=== PATIENT | female | born 1955 | race Caucasian/White ===

== ENCOUNTER 2020-03-26 16:08 | Emergency (ER) | payer MEDICARE, OTHER, SELFPAY ==
--- NOTE | ~2020-03-26 | CT_ITS ---
EXAMINATION: CT brain wo con DATE: 03/26/2020 16:23 INDICATION: Altered mental state TECHNIQUE: Computed tomography (CT) of the head was performed without intravenous contrast. The mA wa s adjusted according to patient size. Iterative reconstruction technique was employed. Exam dose: 60 5.33 mGy-cm total exam DLP. COMPARISON: None FINDINGS: No intracranial mass lesion or hemorrhage or cerebrovascular accident. No midline shift or mass effect. Normal ventricular size. No subdural or epidural hematoma. No fracture or bone destruction of the c ranial vault. IMPRESSION: No significant abnormality Reviewed, dictated and finalized at [facility]. Reviewed, dictated and finalized at [facility]. IMPRESSION: No significant abnormality
--- NOTE | 2020-03-26 16:10 | ECG_ITS ---
Measurements Intervals [place] Rate: 82 P: 74 [place]: 176 QRS: 77 QRSD: 98 T: 67 QT: 396 QTc: 463 Interpretive Statements SINUS RHYTHM VENTRICULAR PREMATURE COMPLEX POSSIBLE LEFT ATRIAL ENLARGEMENT BASELINE ARTIFACT- I, III BORDERLINE ECG Electronically Signed On 03-26-2020 18:19:06 CDT by Bradly Jackson D.O.
[2020-03-26 16:16] VITALS: BP 187/89
[2020-03-26 16:19] LABS: Glucose Point of Care 96 (65-105)
--- NOTE | 2020-03-26 16:25 | ED.HA ---
HPI - Headache General Chief Complaint: Altered Mental Status Stated Complaint: ams Time Seen by Provider: 03/26/20 16:10 Source: patient Mode of arrival: wheelchair Limitations: altered mental status History of Present Illness HPI Narrative: Patient is a 64-year-old female who presents to the emergency department with a friend for report of headache and altered mental status. Patient was poorly responsive and lethargic on arrival to the ED and required multiple staff to move her from wheelchair to stretcher in the room. Patient is complaining of occipital headache and feels as though she was hit in the back of her head with a bat. Patient recalls noticing white flash of light in her visual field just before headache came on. Son reported to the nurse via phone that patient does have history of migraine headaches. Patient reportedly is also on pain medications for her back, though patient denies being on any pain medications or taking anything to me. Patient denies any trauma. Patient reports only anticoagulant is aspirin. MD elicited complaint: headache Pertinent past history: migraines Onset description: suddenly Location: occipital Context: occurred at rest Related Data Home Medications Medication Instructions Recorded Confirmed aspirin 325 mg tablet 325 mg PO DAILY 01/12/20 02/16/20 calcium carbonate 600 mg(1,500 1 tablet PO BID 01/12/20 02/16/20 mg)-vitamin D3 800 unit chewable tablet minocycline 50 mg capsule 50 mg PO DAILY 01/12/20 02/16/20 maumdizb-mme-tdazd acid 0.4 1 tablet PO DAILY 01/12/20 02/16/20 mg-lycopene 300 mcg-lutein 250 mcg tablet trazodone 150 mg tablet 150 mg PO BID 01/12/20 02/16/20 venlafaxine 150 mg 150 mg PO DAILY 01/12/20 02/16/20 capsule,extended release 24 hr venlafaxine 75 mg capsule,extended 75 mg PO DAILY 01/12/20 02/16/20 release 24 hr gabapentin 300 mg capsule 300 mg PO TID cap 03/22/20 metoprolol tartrate 25 mg tablet 25 mg PO BID tablet 03/22/20 omeprazole 40 mg capsule,delayed 40 mg PO BID cap 03/22/20 release Allergies Allergy/AdvReac Type Severity Reaction Status Date / Time codeine Allergy Intermediate Hives Verified 03/22/20 10:18 Review of Systems Review of Systems: All systems reviewed & are unremarkable except as noted in HPI and below Neurologic: Reports headache(s) PMFSH Past Medical History Medical History Cardiac arrhythmia Depression Eye problems Headache Heart disease Heartburn Herniated disc Migraine Osteoporosis Perspiration excessive Sleep disorder Surgical History Surgical History History of back surgery Lower Back 07/2018 Back L4 L5- 06/2019 History of 04/2001 History of foot surgery Torn Ligament Right foot 2016 History of heart surgery Heart Ablations 01/2009 History of hemorrhoidectomy 10/2012 History of knee replacement procedure of right knee 09/2014 History of nasal surgery History of neck surgery 01/2000 Neck through front-10/2018 Neck buckled, went through back of neck-01/2019 Hx of removal of ovary Social History Social History Smoking status: Current every day smoker Second hand tobacco smoke exposure: No Additional smoking assessment comments: Smoking since 1973 Alcohol intake: current Gender identity (if verbalized by the patient): Female Exam Const: General: cooperative, confusion, ill appearing and lethargic Nutritional Appearance: well nourished Orientation/consciousness: confusion and lethargic Limitations: altered mental status HENMT: Mouth: Yes lip normal and Yes moist mucous membranes Resp: Effort & Inspection: normal respiratory effort Auscultation: clear to auscultation bilaterally Cardio: Rate: regular rate Rhythm: regular rhythm GI: GI Palp: Yes Soft t
[2020-03-26 16:26] VITALS: BP 167/88; PULSE 79; RESP 8; TEMP 36.8; O2SAT 100
[2020-03-26 16:35] LABS: Glucose Point of Care 91 (65-105)
[2020-03-26 16:48] LABS: Basophils Percent Auto 0.4 % (0.2-1.2); Eosinophils Absolute Auto 0.1 K/mm3 (0-0.3); Eosinophils Percent Auto 1.9 % (0-4.4); Hematocrit 39.1 % (37.0-47.0); Hemoglobin 13.1 g/dL (12.0-15.0); Immature Granulocyte Absolute 0.02 K/mm3 (0.00-0.031); Immature Granulocyte Percent A 0.3 % (0-0.5); Lymphocytes Absolute Auto 2.32 K/mm3 (0.9-3.2); Lymphocytes Percent Auto 33.3 % (18.3-44.2); Mean Corpuscular HGB Conc 33.5 g/dl (32-36); Mean Corpuscular Hemoglobin 30.2 pg (26-34); Mean Corpuscular Volume 90.1 fl (80-100); Monocytes Absolute Auto 0.8 K/mm3 (0.1-0.6); Monocytes Percent Auto 10.8 % (2.6-8.5); Neutrophils Absolute Auto 3.7 K/mm3 (1.3-6.7); Neutrophils Percent Auto 53.3 % (45.5-73.1); Platelet Count Result 316 k/mm3 (150-375); Red Blood Count 4.34 M/mm3 (4.2-5.4); Red Cell Distribution Width 13.5 % (11.5-14.5)
[2020-03-26 16:50] LABS: Add Urine Microscopic? NO; Appearance Urine Clear (Clear); Bilirubin Urine Negative (Negative); Blood Urine Negative (Negative); Color Urine Straw (Yellow); Glucose Urine UA Negative (Negative); Ketones Urine Negative (Negative); Leukocyte Esterase Ur Negative LEU/UL (Negative); Nitrate Urine Negative (Negative); Protein Urine Negative (Negative); Specific Grav Ur 1.009 (1.001-1.035); Urobilinogen Urine Negative mg/dL (<2.0)
[2020-03-26 17:00] LABS: Alanine Aminotransferase 20 U/L (4-35); Albumin Level 4.2 g/dL (3.5-5.1); Alkaline Phosphatase 92 U/L (38-126); Aspartate Amino Transferase 32 U/L (14-36); Bilirubin,Total 0.2 mg/dL (0.2-1.3); Blood Urea Nitrogen 21 mg/dL (7-17); Calcium 9.4 mg/dL (8.4-10.2); Carbon Dioxide 26 mmol/L (22-30); Chloride 104 mmol/L (98-107); Estimated Glomerular Filt Rate > 60; Glucose 97 mg/dL (65-105); INR 0.9; Prothrombin Time 12.1 Seconds (11.1-14.7); Sodium 135 mmol/L (137-145)
[2020-03-26 17:01] LABS: Partial Thromboplastin Time 23.7 SECONDS (22.3-36.8)
[2020-03-26] MEDS: KETOROLAC 30 MG/ML VIAL (*BKC) IV PUSH (17:22)
[2020-03-26 17:23] LABS: Acetaminophen < 10 ug/mL (10-30); Ethanol < 10 mg/dL (<10); Salicylate 4.7 mg/dL (2-20)
[2020-03-26] MEDS: LACTATED RINGERS 1,000 ML 999 ML IV CONT (17:23)
[2020-03-26 17:30] VITALS: BP 169/78; PULSE 75; RESP 16; TEMP 36.6; O2SAT 100
[2020-03-26 17:56] LABS: Amphetamine Screen Urine Negative (Negative); Barbiturate Screen Urine Negative (Negative); Benzodiazepines Screen Urine Negative (Negative); Cannabinoid Screen Urine Negative (Negative); Cocaine Screen Urine Negative (Negative); Methadone Screen Urine Negative (Negative); Opiate Screen Urine Negative (Negative); Phencyclidine Screen Urine Negative (Negative)
[2020-03-26 18:53] VITALS: BP 177/143; PULSE 77; RESP 16; TEMP 36.7; O2SAT 100
== END 2020-03-26 19:51 | disposition home or self-care (01) ==
PROVIDERS: Emergency Provider Emergency Medicine; PCP Family Medicine
DX: R41.82 Altered mental status, unspecified (principal); R51 Headache; Z79.82 Long term (current) use of aspirin; F32.9 Major depressive disorder, single episode, unspecified; M81.0 Age-related osteoporosis without current pathological fracture; Z96.651 Presence of right artificial knee joint; F17.200 Nicotine dependence, unspecified, uncomplicated; I49.3 Ventricular premature depolarization; R94.31 Abnormal electrocardiogram [ECG] [EKG]; I51.9 Heart disease, unspecified; G47.9 Sleep disorder, unspecified; R61 Generalized hyperhidrosis; Z79.899 Other long term (current) drug therapy
CPT/HCPCS: 36415; 51701; 70450; 80053; 80307; 81003; 82948; 85025; 85610; 85730; 93005; 96361; 96374; 99284; J1885; J7120

== ENCOUNTER 2020-04-08 13:37 | Outpatient (CLI) | payer MEDICARE, OTHER, SELFPAY ==
--- NOTE | ~2020-04-08 | MR_ITS ---
EXAMINATION: MR brain/brain stem wo con DATE: 04/08/2020 14:22 CDT INDICATION: Headache. TECHNIQUE: Magnetic resonance imaging (MRI) of the brain and brainstem was performed without intraven ous contrast. Sequences included sagittal and axial T1-weighted SE, axial diffusion-weighted FS SE, a xial T2*-weighted GRE, axial T2-weighted FLAIR Propeller, and axial T2-weighted Propeller. Apparent d iffusion coefficient (ADC) maps were created. COMPARISON: CT dated 03/26/2020 FINDINGS: The brain volume and ventricular system are within normal limits. The brain parenchymal si gnal intensity pattern and infante/white matter is normal and there is no evidence of hemorrhage, space occupying masses or infarctions. The flow signal voids of the major arterial structures about the [place] and within the [place] r dural venous sinuses appear grossly unremarkable and patent. The seventh and eighth cranial nerve complexes are normal. The mid sagittal image demonstrates a normal craniovertebral junction and justin us callosum. The paranasal sinuses are grossly unremarkable. IMPRESSION: 1: No acute intracranial abnormality. Reviewed, dictated and finalized at location [facility].
== END 2020-04-08 13:38 | disposition home or self-care (01) ==
PROVIDERS: PCP Family Medicine; Visit Provider Family Medicine
DX: R51 Headache (principal)
CPT/HCPCS: 70551

== ENCOUNTER 2020-04-27 07:33 | Outpatient (CLI) | payer MEDICARE, OTHER, SELFPAY ==
[2020-04-27 09:57] LABS: Urine Cotinine POSITIVE
[2020-04-27 10:04] LABS: Hemoglobin A1C 5.4 % (<5.7)
== END 2020-04-27 07:34 | disposition home or self-care (01) ==
LOC: ANHSURGERY 07:39
PROVIDERS: PCP Family Medicine; Visit Provider Orthopaedic Surgery
DX: Z96.651 Presence of right artificial knee joint (principal)
CPT/HCPCS: 36415; 80307; 83036; 86850; 86900; 86901; 87081

== ENCOUNTER 2020-06-04 07:40 | Outpatient (CLI) | payer MEDICARE, OTHER, SELFPAY ==
[2020-06-04 08:17] LABS: Basophils Percent Auto 0.5 % (0.2-1.2); Eosinophils Absolute Auto 0.2 K/mm3 (0-0.3); Hematocrit 40.5 % (37.0-47.0); Hemoglobin 13.1 g/dL (12.0-15.0); Immature Granulocyte Absolute 0.01 K/mm3 (0.00-0.031); Immature Granulocyte Percent A 0.2 % (0-0.5); Lymphocytes Absolute Auto 1.72 K/mm3 (0.9-3.2); Lymphocytes Percent Auto 30.6 % (18.3-44.2); Mean Corpuscular HGB Conc 32.3 g/dl (32-36); Mean Corpuscular Hemoglobin 29.9 pg (26-34); Mean Corpuscular Volume 92.5 fl (80-100); Mean Platelet Volume 9.3 fl (7.4-10.4); Monocytes Absolute Auto 0.5 K/mm3 (0.1-0.6); Monocytes Percent Auto 9.6 % (2.6-8.5); Neutrophils Absolute Auto 3.2 K/mm3 (1.3-6.7); Neutrophils Percent Auto 56.1 % (45.5-73.1); Platelet Count Result 323 k/mm3 (150-375); Red Blood Count 4.38 M/mm3 (4.2-5.4); Red Cell Distribution Width 13.9 % (11.5-14.5); White Blood Count 5.6 K/mm3 (4.5-10.0)
[2020-06-04 08:24] LABS: Urine Cotinine NEGATIVE
[2020-06-04 08:33] LABS: Estimated Glomerular Filt Rate > 60; Glucose 93 mg/dL (65-105)
[2020-06-04 14:28] LABS: Hemoglobin A1C 5.3 % (<5.7)
== END 2020-06-04 07:41 | disposition home or self-care (01) ==
LOC: ANHSURGERY 07:43
PROVIDERS: PCP Family Medicine; Visit Provider Orthopaedic Surgery
DX: Z96.651 Presence of right artificial knee joint (principal)
CPT/HCPCS: 36415; 80307; 82040; 82565; 82947; 83036; 85025; 86850; 86900; 86901; 87081

== ENCOUNTER 2020-06-08 | Outpatient (CLI) | payer MEDICARE, OTHER, SELFPAY ==
[2020-06-08 20:43] LABS: SARS-CoV-2 RNA PCR Negative
== END 2020-06-08 00:01 | disposition home or self-care (01) ==
LOC: ANHCOVIDDT
PROVIDERS: PCP Family Medicine; Visit Provider Orthopaedic Surgery
DX: Z01.818 Encounter for other preprocedural examination (principal); Z11.59 Encounter for screening for other viral diseases
CPT/HCPCS: 87635; C9803; U0003

== ENCOUNTER 2020-06-11 09:09 | Inpatient (IN) | payer MEDICARE, OTHER, SELFPAY ==
[2020-04-27 08:17] VITALS: BP 164/70; PULSE 88; RESP 20; TEMP 36.7; O2SAT 99; BMI 29.8
[2020-05-30 14:01] VITALS: BMI 29.8
[2020-06-11] VITALS (13 sets, daily range): BP systolic 107–152; BP diastolic 44–80; PULSE 67–78; RESP 10–18; TEMP 36.4–36.8; O2SAT 95–100; BMI 29.5; BMI 31.0
--- NOTE | ~2020-06-11 | XR_ITS ---
XR knee RT 2V DATE: 06/11/2020 09:35 INDICATION: Right total knee revision TECHNIQUE: Portable postoperative AP and lateral views COMPARISON: 05/31/2020 right knee FINDINGS: There is subcutaneous emphysema and soft tissue swelling of the anterior lower leg and knee . Status post right total knee arthroplasty with patellar resurfacing. No fracture or dislocation, periosteal reaction or bone destruction is evident. IMPRESSION: Status post right total knee arthroplasty Reviewed, dictated and finalized at location [facility].
[2020-06-11] MEDS: LACTATED RINGERS 1,000 ML 30 ML IV CONT ×2 (06:46→09:22)
[2020-06-11] MEDS: ACETAMINOPHEN 500 MG TABLET 1000 MG PO (06:47)
[2020-06-11] MEDS: KETOROLAC 15 MG/ML VIAL (*BKC) IV PUSH ×4 (06:47→23:35)
[2020-06-11] MEDS: TRANEXAMIC ACID 1,000MG/ISO100 1,000 MG/100 ML BAG 200 MG IVPB (06:53)
--- NOTE | 2020-06-11 06:55 | WPDANESEPPF ---
Anes - Initial Pre Proc Eval Procedure: Operation Date: 06/11/20 07:30 Proposed Procedures p Right Total Knee Revision With Intraoperative Frozen Sections - Mesfin Gaytan MD Date/Time: 06/11/20 06:55 Surgeon: Mesfin Gaytan MD Pre Op Diagnosis: Acquired Instability of Right Knee Patient Data Age: 64 Gender: F Height: 1.56 m Weight: 72.2 kg Last Vital Signs Temp 36.7 C 04/27/20 08:17 Pulse 88 04/27/20 08:17 Resp 20 04/27/20 08:17 BP 164/70 H 04/27/20 08:17 Pulse Ox 99 04/27/20 08:17 Allergies Allergy/AdvReac Type Severity Reaction Status Date / Time codeine Allergy Intermediate Hives Verified 05/31/20 07:23 Home Medications Medication Instructions Recorded Confirmed Type aspirin 325 mg tablet 325 mg PO DAILY 01/12/20 05/31/20 History calcium carbonate 600 mg(1,500 1 tablet PO BID 01/12/20 05/31/20 History mg)-vitamin D3 800 unit chewable tablet minocycline 50 mg capsule 50 mg PO DAILY 01/12/20 05/31/20 History fcdlmfjn-whk-xhhur acid 0.4 1 tablet PO DAILY 01/12/20 05/31/20 History mg-lycopene 300 mcg-lutein 250 mcg tablet trazodone 150 mg tablet 150 mg PO HS 01/12/20 05/31/20 History venlafaxine 150 mg 150 mg PO BID 01/12/20 05/31/20 History capsule,extended release 24 hr venlafaxine 75 mg capsule,extended 75 mg PO BID 01/12/20 05/31/20 History release 24 hr gabapentin 300 mg capsule 300 mg PO TID cap 03/22/20 05/31/20 History metoprolol tartrate 25 mg tablet 25 mg PO BID tablet 03/22/20 05/31/20 History omeprazole 40 mg capsule,delayed 40 mg PO BID cap 03/22/20 05/31/20 History release rivaroxaban 10 mg tablet 10 mg PO DAILY #13 tablet MDD 1 04/20/20 05/31/20 Rx tab = 10mg topiramate 25 mg PO HS 04/27/20 05/31/20 History estradiol 10 mcg vaginal insert 10 mcg VAGINAL 2XW 05/24/20 05/31/20 History Patient hx anesthesia problems: none Family hx anesthesia problems: none [facility] Past Medical History Medical History (Updated 06/11/20 @ 06:57 by Tramaine Paul DO) BMI 28.0-28.9,adult Cardiac arrhythmia Hx SVT - s/p ablation x3 CHF (congestive heart failure) ONLY DURING in 2000, EF% 69%, no issues since Depression Eye problems Headache Heartburn Herniated disc Migraine Osteoporosis Perspiration excessive Sleep disorder Surgical History Surgical History History of back surgery Lower Back 07/2018 Back L4 L5- 06/2019 History of 04/2001 History of foot surgery Torn Ligament Right foot 2016 History of heart surgery Heart Ablations 01/2009 History of hemorrhoidectomy 10/2012 History of knee replacement procedure of right knee 09/2014 History of nasal surgery History of neck surgery 01/2000 Neck through front-10/2018 Neck buckled, went through back of neck-01/2019 Hx of removal of ovary Social History Social History Smoking status: Former smoker Additional smoking assessment comments: Smoking since 1973 STATES QUIT APRIL 2020 Alcohol intake: current Gender identity (if verbalized by the patient): Female Anes - Eval Final PreProcedure Day of Procedure 06/11/20 06:55 Patient weight: overweight Heart: regular rate and rhythm Lungs: clear to auscultation and normal air movement Airway: Mallampati scale class III Neurological: alert and oriented Last oral intake: >/= 8 hours ASA classification: III Emergent: no Anesthetic plan: proceed Anesthesia type and monitoring: general LMA and standard monitoring Informed Consent: The patient's anesthetic plan and its attendant risks and benefits were discussed with the patient/family/POA. Questions were solicited and answers provided to the satisfaction of the patient/family/POA.
--- NOTE | 2020-06-11 06:58 | WPDANESPNB ---
Anes - Peripheral Nerve Block Date/Time: 06/11/20 06:58 I have discussed with the patient/family/POA the placement of a peripheral nerve block for post-operative pain management, including associated risks, benefits, complications, and side effects. Alternative methods of post-operative analgesia were detailed. Questions were solicited and answers provided to the satisfaction of the patient/family/POA. Time-Out: A pre-procedural Time-Out was completed immediately before starting the procedure and confirmed: Patient Identification, Site, Procedure, Patient Position and the Availability of Requisite Equipment. Clinical Indications: Acute post-operative pain management requested by the operative surgeon. Nerve Block Insertion Note Anes-nerve block: adductor canal right Patient position: supine Skin prep: chlorhexidine Needle: 22 gauge, stimulating, insulated echogenic needle. Needle length: 80 mm Technique: ultrasound Injectate: bupivacaine 0.5% with epi 5 mcg/ml (30cc) Observations: tolerated well Complications: none Procedure start time:: 722 Procedure end time:: 725
--- NOTE | 2020-06-11 07:14 | WPDHPUPDATE1 ---
History and Physical Update Update Date/Time: 06/11/20 07:14 History and Physical has been reviewed, including an updated exam of the patient. There are NO changes in the patient's condition. Risks, benefits, and alternatives have been discussed and questions answered. Patient agrees to proceed with procedure.
--- NOTE | 2020-06-11 07:31 | SUR.PREOP ---
3418; CLARIFIED WITH DR MARTÍNEZ, GIVE VANCOMYCIN
[2020-06-11] MEDS: ceFAZolin 2 GM/D5W 50 ML 2 GM/50 ML BAG IVPB ×3 (07:36→23:36)
[2020-06-11] MEDS: TRANEXAMIC ACID 1,000 MG/10 ML AMPUL 1000 MG TOPICAL (08:06)
--- NOTE | 2020-06-11 09:18 | P.OP_ITS ---
Procedure Note - Detailed Date of procedure: 06/11/20 Pre-op diagnosis: Acquired Instability of Right Knee Post-op diagnosis: same (Status post right total knee replacement in 2013) Procedure performed: revision right total knee replacement - polyethylene exchange Description of procedure: The patient was identified and proper site identified. In the preop holding area the anesthesia team performed a right sub sartorial block after which the patient was taken to the operating room and transferred to the OR table positioning supine taking care to pad the torso and extremities. After general anesthetic induction and intubation a nonsterile tourniquet was placed high on the right thigh. The right lower extremity was prepped and draped in the usual sterile fashion. The extremity was exsanguinated and with the knee flexed tourniquet was inflated to 300 mmHg remaining up for approximately 31 minutes. An anterior midline incision was made and a modified medial parapatellar approach was used. Scar tissue in the anterior portion of the knee was excised enough to be able to access the locking bar as well as the anterior margin of the tibial component. The locking bar was removed and the 12 mm tibial insert was taken out. Sample of tissue was sent for frozen section which came back no acute inflammation. Gram stain and cultures were also sent . The patellar, tibial and femoral implants were all checked for stability and noted to be solidly fixed. The knee was trialed with a 14 mm insert for the 67 tray which gave excellent stability. After a thorough lavage of the joint a Betadine and saline wash was placed into the wound and allowed to sit for approximately 3 minutes and then evacuated. The real 14 mm size 67 insert was placed and secured with the locking bar Periarticular tissues were infiltrated with 60 cc of the arthroplasty solution. 1 g of tranexamic acid was left in the wound. The extensor mechanism was repaired with #2 Vicryl suture and 0 looped PDS suture. Subcu was reappro ximated with two Vicryl and two 0 strata fix with tissue adhesive for the skin. A sterile dressing was applied. she tolerated the procedure well, was awakened and extubated, transferred to the bed and was taken to recovery area in stable condition. There were no known intraoperative complications. Perioperative antibiotics were administered. Anesthesia: GLMA Surgeon: Mesfin Gaytan MD Senior Strategy Analyst: Gema Purvis Estimated blood loss (mL): 50 Tourniquet time (min): 31 Drains: No Packing: No Pathology: yes Complications: No immediate complications Condition: stable Disposition: PACU
--- NOTE | 2020-06-11 10:09 | SUR.PHASEI ---
0930 xrays right knee done.
--- NOTE | 2020-06-11 10:46 | ADMGEN ---
This patient, Frannie Palma, was admitted to 2 Medical Room 249-01. Patient/family oriented to hospital policies and general routines including ID bracelet, bed and alarms, visiting hours, pain management, procedures, bathroom and other care routines, personal items, smoking policy, room service/diet, and visiting hours. Valuables list has been completed. Information on how to activate the Rapid Response Team has been discussed. Patient/Family are encouraged to report perceived risks to care and to ask questions if they do not understand what they are told or what they should do.
[2020-06-11] MEDS: SODIUM CHLORIDE 0.9% IV 1,000 ML 125 ML IV CONT (11:05)
[2020-06-11] MEDS: oxyCODONE/ACETAMINOPHEN 5-325 MG TABLET 1 TABLET PO ×3 (12:59→20:21)
[2020-06-11] MEDS: GABAPENTIN 300 MG CAPSULE PO ×2 (12:59→16:14)
[2020-06-11] MEDS: RIVAROXABAN 10 MG TABLET PO (17:14)
--- NOTE | 2020-06-11 17:46 | PM.IMCN ---
Assessment and Plan Assessment and plan (1) History of knee replacement procedure of right knee: Code(s): Z96.651 - Presence of right artificial knee joint Status: Acute Assessment and Plan: DVT prophylaxis per ortho. The patient has already been on Xarelto for her AFib. Pain management per Ortho. The patient has a Band-Aid to her right knee which is dry and intact. She has a ice pack to the right knee she has bilateral TEDs and SCDs. (2) Atrial fibrillation: Code(s): I48.91 - Unspecified atrial fibrillation Status: Chronic Assessment and Plan: patient had 3 ablations and is now on Xarelto. She is on metoprolol. (3) Hypertension: Code(s): I10 - Essential (primary) hypertension Status: Chronic Assessment and Plan: She is on metoprolol (4) Neuropathy: Code(s): G62.9 - Polyneuropathy, unspecified Status: Chronic Assessment and Plan: continue with gabapentin (5) Rosacea: Code(s): L71.9 - Rosacea, unspecified Status: Chronic Assessment and Plan: continue minocycline. (6) Anxiety: Code(s): F41.9 - Anxiety disorder, unspecified Status: Chronic Assessment and Plan: Continue with Effexor and Desyrel. HPI Data of Consult Consult date: 06/11/20 Requesting Physician: Mesfin Gaytan MD Primary Care Provider: Zafar Reddy MD Consult Narrative Narrative: Frannie Palma is a 64 year old female Who has a past history of having a total right total knee arthroplasty back in 2013. The patient stated that he keeps slipping and she was having problems with the right knee. The patient has been having severe discomfort specially with activity. She has had instability of her right knee. She has been worked up for infection in all is remarkable. The patient had a revision of her right knee. She tells me that she stop smoking about 4 months ago. She has atrial fibrillation history with at least 3 ablations and she is on anticoagulation. The patient had a nerve block with her knee surgery today. She is not having any discomfort. The LAD she is complaining of his a dry mouth. I think ortho for this opportunity to consult on this lady. I spent approximately 45 minutes with this patient. Date of service is 06/11/2020 Review of Systems Review of Systems: All systems reviewed & are unremarkable except as noted in HPI and below Constitutional: Constitutional: Reports as per HPI and Reports no additional constitutional complaints Eyes: Eyes: Reports as per HPI and Reports no additional eye complaints ENT: Reports system reviewed and no additional complaints, except as documented and Reports Normal hearing present Cardiovascular: Cardiovascular: Reports no additional cardiovascular complaints Respiratory: Respiratory: Reports no additional respiratory complaints and Reports no additional respiratory complaints Gastrointestinal: Gastrointestinal: Reports as per HPI and Reports no additional gastrointestinal complaints Musculoskeletal: Musculoskeletal: Reports no additional musculoskeletal complaints Integumentary/Breasts: Skin/Breast: Reports system reviewed and no additional complaints, except as docu and Reports as per HPI Neurologic: Reports system reviewed and no additional complaints, except as documented, Reports as per HPI and Reports Normal hearing present Psychiatric: Psychiatric: Reports no additional psychiatric complaints and Reports as per HPI Endocrine: Endocrine: Reports no additional endocrine complaints Hematologic/Lymphatic: Hematologic/Lymphatic: Reports no additional hematologic/lymphatic complaints Allergic/Immunologic: Allergic/Immunologic: Reports no additional allergic/immunologic complaints [facility] Past Medical History Medical History (Updated 06/11/20 @ 18:03 by Radha Perez NP) Anxiety Atrial fibrillation status post 3 ablation some 3 of 0 9, 5 oval 9, 7 9. Paro
[2020-06-11] MEDS: traZODone HCL 50 MG TABLET 150 MG PO (20:21)
[2020-06-11] MEDS: METOPROLOL TARTRATE 25 MG TABLET PO (20:21)
[2020-06-11] MEDS: TOPIRAMATE 25 MG TABLET PO (20:22)
[2020-06-12 00:21] VITALS: BP 131/52; PULSE 73; RESP 20; TEMP 36.6; O2SAT 100
[2020-06-12] MEDS: oxyCODONE/ACETAMINOPHEN 5-325 MG TABLET 1 TABLET PO ×3 (00:33→09:07)
[2020-06-12 04:00] VITALS: BP 151/55; PULSE 65; RESP 18; TEMP 36.4; O2SAT 100
[2020-06-12 06:04] LABS: Basophils Percent Auto 0.2 % (0.2-1.2); Eosinophils Absolute Auto 0.1 K/mm3 (0-0.3); Eosinophils Percent Auto 1.2 % (0-4.4); Hematocrit 35.2 % (37.0-47.0); Hemoglobin 11.4 g/dL (12.0-15.0); Immature Granulocyte Absolute 0.02 K/mm3 (0.00-0.031); Immature Granulocyte Percent A 0.2 % (0-0.5); Lymphocytes Absolute Auto 2.59 K/mm3 (0.9-3.2); Lymphocytes Percent Auto 31.1 % (18.3-44.2); Mean Corpuscular HGB Conc 32.4 g/dl (32-36); Mean Corpuscular Hemoglobin 30.3 pg (26-34); Mean Corpuscular Volume 93.6 fl (80-100); Monocytes Absolute Auto 0.7 K/mm3 (0.1-0.6); Monocytes Percent Auto 7.8 % (2.6-8.5); Neutrophils Absolute Auto 4.9 K/mm3 (1.3-6.7); Neutrophils Percent Auto 59.5 % (45.5-73.1); Platelet Count Result 267 k/mm3 (150-375); Red Blood Count 3.76 M/mm3 (4.2-5.4); Red Cell Distribution Width 14.4 % (11.5-14.5); White Blood Count 8.3 K/mm3 (4.5-10.0)
[2020-06-12 06:19] LABS: Alanine Aminotransferase 19 U/L (4-35); Albumin Level 3.5 g/dL (3.5-5.1); Alkaline Phosphatase 62 U/L (38-126); Anion Gap 7.7 mmol/L (7-16); Aspartate Amino Transferase 31 U/L (14-36); Bilirubin,Total < 0.1 mg/dL (0.2-1.3); Blood Urea Nitrogen 23 mg/dL (7-17); Calcium 9.1 mg/dL (8.4-10.2); Carbon Dioxide 28 mmol/L (22-30); Chloride 103 mmol/L (98-107); Estimated CRCL calculation 44 ml/min; Estimated Glomerular Filt Rate 50; Glucose 86 mg/dL (65-105); Magnesium 1.9 mg/dL (1.6-2.3); Potassium 3.7 mmol/L (3.4-5.0); Sodium 135 mmol/L (137-145)
--- NOTE | 2020-06-12 07:38 | WPDANESPN ---
Anes - Prog Note Post-Op Date/Time: 06/12/20 07:38 Cardiovascular status: normal Respiratory status: normal Airway patency: baseline Mental status: baseline Post-Op hydration status: normal Vital Signs: Last Vital Signs Temp 36.4 C L 06/12/20 04:00 Pulse 65 06/12/20 04:00 Resp 18 06/12/20 04:00 BP 151/55 H 06/12/20 04:00 Pulse Ox 100 06/12/20 04:00 I/O: Intake & Output 06/11/20 06/11/20 06/12/20 15:59 23:59 07:59 Intake Total 299 932 4872 Output Total 750 Balance 922 -450 1450 Laboratory Tests 06/12/20 05:23 06/12/20 05:23 06/12/20 06/12/20 06/12/20 05:23 05:23 05:23 WBC 8.3 RBC 3.76 L Hgb 11.4 L Hct 35.2 L MCV 93.6 MCH 30.3 MCHC 32.4 RDW 14.4 Plt Count 267 MPV 10.0 Immature Gran % (Auto) 0.2 Neut % (Auto) 59.5 Lymph % (Auto) 31.1 Marshall % (Auto) 7.8 Eos % (Auto) 1.2 Baso % (Auto) 0.2 Lymph # (Auto) 2.59 Marshall # (Auto) 0.7 H Eos # (Auto) 0.1 Baso # (Auto) 0.0 Abs Immat Gran (auto) 0.02 Absolute Neuts (auto) 4.9 Absolute Nucleated RBC 0.0 Nucleated RBC % 0.0 Sodium 135 L Potassium 3.7 Chloride 103 Carbon Dioxide 28 Anion Gap 7.7 BUN 23 H Creatinine 1.10 H Estim Creat Clear Calc 44 Estimated GFR 50 L Glucose 86 Calcium 9.1 Magnesium 1.9 Total Bilirubin < 0.1 L AST 31 ALT 19 Alkaline Phosphatase 62 Total Protein 6.0 L Albumin 3.5 TSH (Reflex) Pending Microbiology 06/11/20 08:18 Knee Right Anaerobic Culture - Preliminary Post-procedural complaints: none Patient Feedback: Patient satisfied with anesthetic care.
--- NOTE | 2020-06-12 07:43 | PM.DS ---
DS: Admitting Diagnosis Admitting Diagnosis Admitting Diagnosis: Presence of right artificial knee joint DS: Discharge Diagnosis Discharge Diagnosis (1) History of knee replacement procedure of right knee: Code(s): Z96.651 - Presence of right artificial knee joint Status: Acute DS: Summary Time Spent with Patient Time attestation: Total time spent providing and/or coordinating discharge services: Exam Const: General: cooperative, no acute distress and alert Nutritional Appearance: other Orientation/consciousness: patient oriented x3 Limitations: no limitations HENMT: Head: normal to inspection Ears: hearing grossly normal bilaterally Face and sinus: face symmetric Mouth: Yes moist mucous membranes Teeth and gingiva: fair dentition Eyes: Alignment and Position: alignment normal and position normal Sclera: sclerae normal Neck: Neck: normal visual inspection and nontender Chest: Chest palpation & inspection: normal inspection of the chest Resp: Effort & Inspection: normal respiratory effort and able to speak in complete sentences GI: Inspection: other Skin: General skin exam: normal color Rashes: no rashes Neuro: General: patient oriented x3 Cognition (Neuro): normal cognition Speech: normal speech Gait exam (Neuro): Other gait observations present Motor exam (neuro): 5/5 motor strength present throughout Sensory Exam: normal sensation Extrem: General: normal to inspection and other Other: Exam of the right knee shows dry incision. No erythema. Range of motion 0-115 degrees of flexion. Neurovascular status right lower extremity unremarkable. Calves negative. Psych: Appearance: grossly normal Mental Status: mental status grossly normal DS: Data Data Completed and Pending Pending studies at discharge: Pending at discharge 06/11/20 08:16 Surgical [PTH] Routine Labs on day of discharge: Labs from last 24 hours 06/12/20 06/12/20 06/12/20 05:23 05:23 05:23 WBC 8.3 RBC 3.76 L Hgb 11.4 L Hct 35.2 L MCV 93.6 MCH 30.3 MCHC 32.4 RDW 14.4 Plt Count 267 MPV 10.0 Immature Gran % (Auto) 0.2 Neut % (Auto) 59.5 Lymph % (Auto) 31.1 [place] % (Auto) 7.8 Eos % (Auto) 1.2 Baso % (Auto) 0.2 Lymph # (Auto) 2.59 [place] # (Auto) 0.7 H Eos # (Auto) 0.1 Baso # (Auto) 0.0 Abs Immat Gran (auto) 0.02 Absolute Neuts (auto) 4.9 Absolute Nucleated RBC 0.0 Nucleated RBC % 0.0 Sodium 135 L Potassium 3.7 Chloride 103 Carbon Dioxide 28 Anion Gap 7.7 BUN 23 H Creatinine 1.10 H Estim Creat Clear Calc 44 Estimated GFR 50 L Glucose 86 Calcium 9.1 Magnesium 1.9 Total Bilirubin < 0.1 L AST 31 ALT 19 Alkaline Phosphatase 62 Total Protein 6.0 L Albumin 3.5 TSH (Reflex) Pending Preliminary micro results at discharge 06/11/20 08:18 Anaerobic Culture - Preliminary Knee Right Discharge Plan Discharge Consulting providers: Michael Murdock Discharging Clinician: Mesfin Gaytan Anticipated Discharge Date/Time: 06/12/20 12:00 Patient Disposition: Home, Self-Care Activity: no driving and other - see discharge instructions Diet: regular Wound Care Instructions: follow printed instructions Discharge Instructions: 3 times daily for 20 minutes each time, reclining in bed with ice packs over the incision and a pillow underneath the affected calf. Your wound is glued so it is okay to get into the shower and get the wound wet. Be sure to read through all the information that came from a my office and the hospital. Most of the answer was you will need can be found that material. Call the office with any questions that you cannot find answers to, or concerns you may have. After the Xarelto is completed, start taking one coated 325 mg aspirin daily and do this for four more weeks. Please call [facility] at as soon as pos
[2020-06-12] MEDS: ceFAZolin 2 GM/D5W 50 ML 2 GM/50 ML BAG IVPB (09:05)
[2020-06-12] MEDS: VENLAFAXINE HCL XR 75 MG CAP.ER.24H 225 MG PO (09:06)
[2020-06-12 09:07] VITALS: PULSE 65
[2020-06-12] MEDS: TOPIRAMATE 25 MG TABLET PO (09:07)
[2020-06-12] MEDS: RIVAROXABAN 10 MG TABLET PO (09:07)
[2020-06-12] MEDS: GABAPENTIN 300 MG CAPSULE PO (09:07)
[2020-06-12] MEDS: METOPROLOL TARTRATE 25 MG TABLET PO (09:07)
[2020-06-12] MEDS: MULTIVITAMINS /C LUTEIN (CENTRUM SILVER) TABLET *BKC 1 TAB PO (09:07)
[2020-06-12] MEDS: FAMOTIDINE 20 MG TABLET PO (09:07)
--- NOTE | 2020-06-12 12:21 | PM.IMPN ---
Progress Note: A&P Assessment and Plan (1) History of knee replacement procedure of right knee: Code(s): Z96.651 - Presence of right artificial knee joint Status: Acute Assessment and Plan: Patient appears to have tolerated the procedure well. She feels comfortable with discharge. He is up walking the halls. Okay for discharge from a medical standpoint. (2) Atrial fibrillation: Code(s): I48.91 - Unspecified atrial fibrillation Status: Chronic Assessment and Plan: Patient is status post ablation x3. Continue metoprolol. Continue Xarelto. (3) Hypertension: Code(s): I10 - Essential (primary) hypertension Status: Chronic Assessment and Plan: Patient's blood pressure was reviewed on 06/12/20. Blood pressure remains well controlled. Will continue current medications. (4) Neuropathy: Code(s): G62.9 - Polyneuropathy, unspecified Status: Chronic Assessment and Plan: Pain controlled. Continue gabapentin. (5) Rosacea: Code(s): L71.9 - Rosacea, unspecified Status: Chronic Assessment and Plan: Stable. Continue minocycline. (6) Anxiety: Code(s): F41.9 - Anxiety disorder, unspecified Status: Chronic Assessment and Plan: Mood is stable. Continue current medications. Subjective Date/time seen: 06/12/20 12:21 Interval history: 64-year-old female with history of hypertension and atrial fibrillation who is here right knee revision. No issues overnight. Pain is well controlled. She is up walking the halls. She denies any chest pain. No shortness of breath. She feels comfortable with discharge plan. Exam Narrative: Exam Narrative: AF 151/55 65 Gen - NARD Chest -Right base inspiratory crackles otherwise clear. Crackles improved with deep inspiration. CV - RRR S1/S2 Abd - Soft, NT/ND, Positive BS Ext - No pedal edema. Right knee dressing was clean, dry and intact. Psych - Nml mood and affect Skin - Warm and dry Objective Data Vital Signs Vital Signs: Vital Signs - 24 hr 06/11/20 12:25 06/11/20 15:31 06/11/20 16:25 Temperature 97.8 F 97.9 F Pulse Rate 77 75 Respiratory Rate 16 16 Blood Pressure 141/63 H 148/63 H Pulse Oximetry 98 98 100 06/11/20 20:00 06/11/20 20:21 06/12/20 00:21 Temperature 98.1 F 98 F Pulse Rate 78 78 73 Respiratory Rate 18 20 Blood Pressure 152/72 H 131/52 L Pulse Oximetry 100 100 06/12/20 04:00 06/12/20 09:07 Temperature 97.5 F L Pulse Rate 65 65 Respiratory Rate 18 Blood Pressure 151/55 H Pulse Oximetry 100 Intake/Output Intake/Output: Intake & Output 06/09/20 06/10/20 06/11/20 06/12/20 23:59 23:59 23:59 23:59 Intake Total 1562 1979 Output Total 750 Balance 812 1979 Meds/Results Radiology Results: ITS Impressions Knee X-Ray 06/11/20 10:22 IMPRESSION: Status post right total knee arthroplasty Labs Labs: Laboratory Results - last 24 hr 06/12/20 06/12/20 06/12/20 05:23 05:23 05:23 WBC 8.3 RBC 3.76 L Hgb 11.4 L Hct 35.2 L MCV 93.6 MCH 30.3 MCHC 32.4 RDW 14.4 Plt Count 267 MPV 10.0 Immature Gran % (Auto) 0.2 Neut % (Auto) 59.5 Lymph % (Auto) 31.1 [place] % (Auto) 7.8 Eos % (Auto) 1.2 Baso % (Auto) 0.2 Lymph # (Auto) 2.59 [place] # (Auto) 0.7 H Eos # (Auto) 0.1 Baso # (Auto) 0.0 Abs Immat Gran (auto) 0.02 Absolute Neuts (auto) 4.9 Absolute Nucleated RBC 0.0 Nucleated RBC % 0.0 Sodium 135 L Potassium 3.7 Chloride 103 Carbon Dioxide 28 Anion Gap 7.7 BUN 23 H Creatinine 1.10 H Estim Creat Clear Calc 44 Estimated GFR 50 L Glucose 86 Calcium 9.1 Magnesium 1.9 Total Bilirubin < 0.1 L AST 31 ALT 19 Alkaline Phosphatase 62 Total Protein 6.0 L Albumin 3.5 TSH (Reflex) 2.030 Quality VTE Prophylaxis VTE prophylaxis: mechanical orde
--- NOTE | 2020-06-12 16:35 | PCCCNOTE ---
On 06/12/20, the student, [Roxie Johnson ], provided care and completed [facility] documentation on this patient. I have reviewed the student's documentation and agree with the findings.
== END 2020-06-12 10:55 | disposition home or self-care (01) | DRG 488 ==
LOC: ANH2MED 11:28
PROVIDERS: Nurse Practitioner; Admitting Provider Orthopaedic Surgery; PCP Family Medicine; Visit Provider Internal Medicine
PROC: 0SPC09Z Removal of Liner from Right Knee Joint, Open Approach (ICD-10-PCS; CPT 27487; principal; 2020-06-11 07:30)
DX: T84.89XA Other specified complication of internal orthopedic prosthetic devices, implants and grafts, initial encounter (principal); I48.20 Chronic atrial fibrillation, unspecified; E66.9 Obesity, unspecified; Z68.31 Body mass index [BMI] 31.0-31.9, adult; M81.0 Age-related osteoporosis without current pathological fracture; L71.9 Rosacea, unspecified; I11.0 Hypertensive heart disease with heart failure; I50.9 Heart failure, unspecified; F41.9 Anxiety disorder, unspecified; F32.9 Major depressive disorder, single episode, unspecified; G62.9 Polyneuropathy, unspecified; Z87.891 Personal history of nicotine dependence
CPT/HCPCS: 36415; 73560; 80053; 83735; 84443; 85025; 87070; 87075; 87205; 87635; 88305; 88331; 97110; 97116; 97161; 97165; A9270; C1713; C1776; C9803; J0171; J0690; J1100; J1170; J1885; J2250; J2370; J2405; J2704; J2795; J3010; J3370; J7030; J7120; U0003

== ENCOUNTER → 2020-09-21 06:58 | Outpatient (CLI) | payer MEDICARE, OTHER, SELFPAY ==
--- NOTE | ~2020-09-21 | DEXA_ITS ---
Bone Density Report Name: Frannie Palma Age: 65 Sex: Female Ethnicity: White Date of : 1955 Indication: postmenopausal; screening for osteoporosis; height loss; Referring Provider: Rubina Welch Study: Bone densitometry was performed. Exam Date: September 21, 2020 Accession number: [id number] Bone Density: Region BMD T-score Z-score Classification AP Spine (L1, L2) 1.127 1.3 2.9 Normal Femoral Neck (Left) 0.733 -1.0 0.4 Normal Total Hip (Left) 0.859 -0.7 0.5 Normal Femoral Neck (Right) 0.728 -1.1 0.4 Osteopenia Total Hip (Right) 0.830 -0.9 0.2 Normal Total Hip Mean 0.845 -0.8 0.4 Normal World Health Organization criteria for BMD impression classify patients as: Normal (T-score at or above -1.0), Osteopenia (T-score between -1.0 and -2.5), or Osteoporosis (T-score at or below -2.5). 10-year Fracture Risk(1): Major Osteoporotic Fracture 7.7% Hip Fracture 0.9% Reported Risk Factors: [place] (), Neck BMD=0.728, BMI=29.5, smoking (1) FRAX(R) Version 3.08. Fracture probability calculated for an untreated patient. Fracture probability may be lower if the patient has received treatment. Previous Exams: Region Exam Age BMD T-score BMD Change BMD Change Date g/cm2 vs Baseline vs Previous AP Spine(L1, L2) 09/21/2020 65 1.127 1.3 0.003 0.024* 04/04/2015 59 1.103 1.1 -0.021 -0.009 09/10/2012 57 1.112 1.2 -0.012 -0.044* 05/03/2010 54 1.156 1.6 0.032* 0.032* 03/24/2008 52 1.124 1.3 Total Hip(Left) 09/21/2020 65 0.859 -0.7 -0.116* -0.047* 05/28/2018 62 0.906 -0.3 -0.069* 0.007 04/04/2015 59 0.899 -0.4 -0.076* -0.013 09/10/2012 57 0.912 -0.2 -0.063* -0.034* 05/03/2010 54 0.946 0.0 -0.029* -0.029* 03/24/2008 52 0.975 0.3 Total Hip(Right) 09/21/2020 65 0.830 -0.9 -0.187* -0.028* 05/28/2018 62 0.858 -0.7 -0.159* -0.026 04/04/2015 59 0.883 -0.5 -0.133* -0.032* 09/10/2012 57 0.915 -0.2 -0.101* -0.093* 05/03/2010 54 1.008 0.5 -0.008 -0.008 03/24/2008 52 1.016 0.6 *Denotes significance at 95% confidence level, LSC for AP Spine = 0.022 g/cm2, LSC for Total Hip = 0.027 g/cm2 Clinical Information Provided by Patient: Smokes Has used the following medications: Calc
--- NOTE | ~2020-09-21 | MM_ITS ---
EXAMINATION: MM screening [facility] BI w magaly HISTORY: Screening mammogram TECHNIQUE: Craniocaudal and mediolateral oblique 3-D tomosynthesis images were obtained and synthetic 2-D images were generated. CAD analysis was submitted and interpreted. COMPARISON: 06/26/2019, 05/28/2018, 05/22/2017 BREAST PARENCHYMAL COMPOSITION: There are scattered areas of fibroglandular density. FINDINGS: There is no evidence of suspicious mass, calcification, or architectural distortion to sugg est malignancy in either breast. There has been no suspicious interval change. IMPRESSION: 1. No mammographic evidence of malignancy. 2. Recommend routine screening mammography in one year. BI-RADS Category 1: Negative Reviewed, dictated and finalized at location A. R CONTROL SUPERVISOR
== END ==
PROVIDERS: Visit Provider Student in an Organized Health Care Education/Training Program
DX: Z12.31 Encounter for screening mammogram for malignant neoplasm of breast (principal); Z78.0 Asymptomatic menopausal state; M85.851 Other specified disorders of bone density and structure, right thigh
CPT/HCPCS: 77063; 77067; 77080

== ENCOUNTER → 2020-10-11 08:18 | Outpatient (CLI) | payer MEDICARE, OTHER, SELFPAY ==
--- NOTE | ~2020-10-11 | XR_ITS ---
XR cervical spine 4-5V 10/11/2020 08:53 Indication: Cervical fusion Procedure: 4 view cervical spine Comparison: MRI cervical spine dated 12/02/2018 Findings: Status post anterior and posterior cervical fusion at C3-4. There are prosthetic disc devic es at C4-5 and C5-6. Fusion hardware appears to be intact. There is anatomic alignment of the cervica l spine. No prevertebral soft tissue swelling. No fracture or traumatic malalignment. Impression: 1: No acute bone or joint abnormality. 2: Postsurgical changes consistent with fusion anteriorly and posteriorly at C3-4 with discectomy erin nges at C4-5 and C5-6. Reviewed, dictated and finalized at location B. W[employer] SU[employer]PLIES SALES REPRESENTATIVE Impression: 1: No acute bone or joint abnormality. 2: Postsurgical changes consistent with fusion anteriorly and posteriorly at C3 -4 with discectomy changes at C4-5 and C5-6.
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
[2020-10-11 09:11] LABS: Estimated Glomerular Filt Rate 56
== END ==
PROVIDERS: Visit Provider Neurological Surgery
DX: Z98.1 Arthrodesis status (principal)
CPT/HCPCS: 72050; 72156; A9577

== ENCOUNTER → 2021-05-28 07:07 | Outpatient (CLI) | payer MEDICARE, OTHER, SELFPAY ==
--- NOTE | ~2021-05-28 | XR_ITS ---
EXAMINATION: XR shoulder RT min 2V INDICATION: Right shoulder pain TECHNIQUE: Four views of the right shoulder are submitted. COMPARISON: 10/11/2020 FINDINGS: Normal alignment. No fracture. There is mild osteoarthritis of the acromioclavicular and gl enohumeral joints. Revised surgical changes are noted in the cervical spine. Soft tissues are unremar kable. IMPRESSION: 1. No acute osseous abnormality. Reviewed, dictated and finalized at location B.
== END ==
DX: M25.511 Pain in right shoulder (principal)
CPT/HCPCS: 73030

== ENCOUNTER → 2021-05-31 13:24 | Outpatient (CLI) | payer MEDICARE, OTHER, SELFPAY ==
--- NOTE | ~2021-05-31 | CT_ITS ---
EXAMINATION: CT lung screening DATE: 05/31/2021 13:44 INDICATION: Personal history of tobacco dependence, current smoker with 40 pack year history TECHNIQUE: Computed tomography (CT) of the chest was performed without intravenous contrast. The dose -length product (DLP) was 129.31 mGy-cm. Automated exposure control and iterative reconstruction tech PATHSENSORS were employed. COMPARISON: 12/02/2011 FINDINGS: There is mild emphysema. There is a 4 mm subpleural nodule of the right lower lobe on image 59. There is a 2 mm subpleural nodule of the right lower lobe on image 85. The lungs are free of foc al airspace opacities. There is no pleural effusion or pneumothorax. No pathologically enlarged thora cic lymph nodes are identified. The heart size is normal. Calcified coronary artery atherosclerosis i s noted. There is moderate thoracic spondylosis. There are changes of anterior fusion procedure in th e lower cervical spine. IMPRESSION: 1. Lung-RADS category 2: Benign appearance or behavior. Continue annual screening with noncontrast lo w-dose chest CT in 12 months. Reviewed, dictated and finalized at location B. IMPRESSION: 1. Lung-RADS category 2: Benign appearance or behavior. Continue annual screeni ng with noncontrast low-dose chest CT in 12 months.
== END ==
PROVIDERS: PCP Internal Medicine; Visit Provider Internal Medicine
DX: Z87.891 Personal history of nicotine dependence (principal)
CPT/HCPCS: 71271

== ENCOUNTER → 2021-06-03 09:01 | Outpatient (CLI) | payer MEDICARE, OTHER, SELFPAY ==
--- NOTE | ~2021-06-03 | MR_ITS ---
EXAMINATION: MR shoulder RT wo con DATE: 06/03/2021 09:39 INDICATION: Right shoulder pain TECHNIQUE: Magnetic resonance imaging (MRI) of the right shoulder was performed without intravenous c ontrast. Sequences included axial PD-weighted FS FSE, coronal oblique PD-weighted FS FSE, coronal obl ique T2-weighted FS FSE, sagittal PD-weighted FS FSE, and sagittal T1-weighted SE. COMPARISON: None. FINDINGS: Coracoacromial arch: The acromion undersurface is minimally curved in morphology (type I-II) with lateral downsloping. The coracoacromial ligament is normal. Moderate acromioclavicular osteoarthritis. Rotator cuff: Mild subscapularis tendinopathy with tiny intrasubstance ganglion cyst along the distal aspect of the inferior third of the tendon. Moderate supraspinatus and infraspinatus tendinopathy with partial-thi ckness articular sided tear extending proximally 0.3 cm AP along the superior facet footplate of the supraspinatus tendon. The tear margin is retracted up to 2.5 cm medially positioned over the apex of the humeral head. Tear appears to involve approximately one half to two thirds of the tendon thicknes s. The teres minor tendon is normal. There is mild flattening of the posterior aspect of the cephala d margin of the supraspinatus muscle belly at the level of the suprascapular fossa suggesting mild re traction or atrophy without significant fatty infiltration. Remainder of the rotator cuff musculature is unremarkable. Biceps tendon, glenoid labrum and glenohumeral cartilage: Mild tendinopathy and likely longitudinal split tearing at the junction of the intra-articular and ex tra-articular portions of the long head biceps tendon. Glenoid labrum is normal. Mild partial-thickne ss cartilage loss with smooth chondral surface along the cephalad third of the glenoid. Fluid: No glenohumeral joint effusion with mild synovitis at the recesses of the joint space. No loose osteo chondral bodies. Additional small amount of fluid in moderate synovitis at the subacromial/subdeltoid bursa as well as the subcoracoid bursa consistent with mild to moderate bursitis. Bones: Bone alignment is normal. No fracture or pathologic marrow replacing process. Cystic changes are seen most prominent along the lesser tuberosity and to lesser degree along the anterior greater tuberosit y. IMPRESSION: 1. Moderate supraspinatus and infraspinatus tendinopathy with small, moderate to severe partial thick ness articular sided tear along the superior facet footplate of the supraspinatus tendon. 2. Mild glenohumeral and moderate acromioclavicular osteoarthritis. 3. Mild tendinopathy and longitudinal split tearing at the junction of the intra and extra articular portions of the long head biceps tendon. 4. Mild to moderate subacromial/subdeltoid and subcoracoid bursitis. Reviewed, dictated and finalized at location A. IMPRESSION: 1. Moderate supraspinatus and infraspinatus tendinopathy with small, moderate t o severe partial thickness articular sided tear along the superior facet footpl ate of the supraspinatus tendon. 2. Mild glenohumeral and moderate acromioclavicular osteoarthritis. 3. Mild tendinopathy and longitudinal split tearing at the junction of the intr a and extra articular portions of the long head biceps tendon. 4. Mild to moderate subacromial/subdeltoid and subcoracoid bursitis.
== END ==
DX: M19.011 Primary osteoarthritis, right shoulder (principal); M75.51 Bursitis of right shoulder
CPT/HCPCS: 73221

== ENCOUNTER → 2021-10-01 09:59 | Outpatient (CLI) | payer MEDICARE, SELFPAY ==
--- NOTE | ~2021-10-01 | MM_ITS ---
EXAMINATION: MM screening [facility] BI w magaly HISTORY: Screening mammogram TECHNIQUE: Craniocaudal and mediolateral oblique 3-D tomosynthesis images were obtained and synthetic 2-D images were generated. CAD analysis was submitted and interpreted. COMPARISON: Prior mammograms dating back to 04/06/2015 BREAST PARENCHYMAL COMPOSITION: There are scattered areas of fibroglandular density. FINDINGS: An asymmetry in the lower left breast on the mediolateral oblique view has an appearance si milar to prior mammograms. There is no evidence of suspicious mass, calcification, or architectural d istortion to suggest malignancy in either breast. There has been no suspicious interval change. IMPRESSION: 1. No mammographic evidence of malignancy. 2. Recommend routine screening mammography in one year. BI-RADS Category 2: Benign finding(s). Reviewed, dictated and finalized at location A. ATRY DOCTOR
== END ==
PROVIDERS: Visit Provider Student in an Organized Health Care Education/Training Program
DX: Z12.31 Encounter for screening mammogram for malignant neoplasm of breast (principal)
CPT/HCPCS: 77063; 77067

== ENCOUNTER 2022-02-13 09:19 | Outpatient (CLI) | payer MEDICARE, SELFPAY ==
--- NOTE | ~2022-02-13 | XR_ITS ---
EXAMINATION: XR barium swallow modified EXAM DATE: 02/13/2022 10:40 INDICATION: R13.10 - Dysphagia, unspecified TECHNIQUE: Modified barium esophagram was performed by speech pathologist with radiologist Dr. Coleman Lundberg present to administered fluoroscopy. Speech pathologist administered barium in varying consis tencies as per speech pathologist documentation. This was recorded on tape. There was total fluorosc opic time of 0.9 minutes The DAP for this procedure was 0.7 Gycm2. A total of 2 images sent to PAC S from the exam. FINDINGS: Oral stage: Adequate function. Pharyngeal phase: Vallecular residual, reduced tongue base retraction and pharyngeal squeeze. Laryngeal penetration: See speech pathologist's note. Aspiration: None. Laryngeal sensitivity: Present. IMPRESSION: Patient tolerated oral feedings in the upright position. Please refer to speech patholo gist findings and specific feeding recommendations. Reviewed, dictated and finalized at location A. IMPRESSION: Patient tolerated oral feedings in the upright position. Please r efer to speech pathologist findings and specific feeding recommendations.
--- NOTE | 2022-02-13 11:13 | STOPEVAL ---
Thank you for referring Frannie Griselda Palma to [facility].? Results indicate that this patient will benefit from outpatient skilled speech services. Please send order to [facility]. Referring Physician Date Attending Provider: Sung Mullen MD Therapy Assessment Status Assessment Status Assessment Status Evaluation Outpatient Past Medical History Neurological History Hx Migraine Yes Hx Other Neurological Disorders Yes: PERIPHERAL NEUROPATHY TO LT HAND RT FOOT/TOES DUE TO BACK/NECK SURGERY Cardiovascular History Hx Atrial Fibrillation Yes: Cardiac ablation;Sinus rythm now Hx Cardiac Arrhythmia Yes: STATES ABLATION FOR FAST HEART RATE X3 IN 2012 - DR. BARLOW Hx Cardiac Catheterization Yes Hx Congestive Heart Failure Yes: During Hx Hypertension Yes Respiratory History Hx Other Respiratory Disorders Yes: Former smoker;Quit 2019. Gastrointestinal History Hx Gastroesophageal Reflux Disease Yes Hx Hemorrhoids Yes: HEMORRHOIDECTOMY 2011 Hx Other Gastrointestinal Disorders Yes: CHRONIC CONSTIPATION Genitourinary History Hx Genitourinary Disorders No Significant History Musculoskeletal History Hx Arthritis Yes Hx Back Injury Yes Hx Back Pain Yes: CHRONIC Hx Joint Replacement Yes: RT KNEE 2013, RT Knee Revision 06/11/2020 Hx Orthopedic Surgery Yes: RT FOOT 2015 Hx Spinal Surgery Yes: L4-L5 X2 SURGERIES LOWER BACK, 1 NECK Hematological History Hx Hematological Disorders No Significant History Endocrine History Hx Endocrine Disorders No Significant History HEENT History Hx Cataracts Yes: REMOVED Integumentary History Hx Other Skin Disorders Yes: Rosacia Reproductive History Hx Section Yes: X1 Hx Post Menopausal Yes Hx Other Reproductive Disorders Yes: RT TUBE/OVARY REMOVED 1986 Psychosocial History Hx Anxiety Yes Pain History History of Any Previous or Ongoing No Significant History Instance of Pain Anesthesia History Hx Anesthesia Reactions No Significant History Pain Assessment Timing of Pain Assessment Timing of Pain Assessment Pre-Treatment Self Report Self Report Pain Level 0 Pain Score Pain Score 0: Self Report Modified Barium Swallow Evaluation Consistency Thin Uncontrolled 2 Method of Presentation Straw Oral Preparatory Symptoms Premature Spill Posterior Oral Phas
== END 2022-02-13 09:20 | disposition home or self-care (01) ==
PROVIDERS: PCP Internal Medicine; Visit Provider Internal Medicine
DX: R13.10 Dysphagia, unspecified (principal)
CPT/HCPCS: 92611

== ENCOUNTER 2022-03-05 00:57 | Day surgery (SDC) | payer MEDICARE, SELFPAY ==
[2022-03-05 09:11] VITALS: BP 138/80; PULSE 71; RESP 18; TEMP 36.4; O2SAT 99
--- NOTE | 2022-03-05 09:57 | WPDHPUPDATE1 ---
History and Physical Update Update Date/Time: 03/05/22 09:57 Patient with recurrent syncope, unremarkable home monitor, history of some arrhythmias, here for elective implantation of a loop recorder. History and Physical has been reviewed, including an updated exam of the patient. There are NO changes in the patient's condition. Risks, benefits, and alternatives have been discussed and questions answered. Patient agrees to proceed with procedure.
--- NOTE | 2022-03-05 10:20 | WPDMODSED ---
Moderate Sedation Note-Pt Data Patient Data Diagnosis: Recurrent syncope Present Complaint: Recurrent syncope Procedure to be performed/Plan: Implantation of a loop recorder under local anesthesia, possible conscious sedation Allergies Allergy/AdvReac Type Severity Reaction Status Date / Time codeine Allergy Intermediate Hives Verified 03/05/22 10:16 lisinopril AdvReac Abdominal Verified 03/05/22 10:16 Pain Home Medications Medication Instructions Recorded Confirmed Type calcium carbonate 600 mg-vitamin 1 tablet PO BID 01/12/20 03/05/22 History D3 20 mcg (800 unit) chewable tablet mrkythvi-zkt-sbufo acid 0.4 1 tablet PO DAILY 01/12/20 03/04/22 History mg-lycopene 300 mcg-lutein 250 mcg tablet metoprolol tartrate 25 mg tablet 25 mg PO BID tablet 03/22/20 03/05/22 History estradiol 10 mcg vaginal insert 10 mcg VAGINAL 2XW 10/31/20 03/04/22 History amlodipine 10 mg tablet 10 mg PO DAILY #90 tablet 02/20/21 03/05/22 Rx aspirin 325 mg tablet 325 mg PO DAILY 06/13/21 03/05/22 History cyclosporine 0.05 % eye drops in a 1 drp EACH EYE Q12H 06/13/21 03/05/22 History dropperette gabapentin 300 mg capsule 300 mg PO BID 90 Days #180 cap 01/16/22 03/05/22 Rx omeprazole 40 mg capsule,delayed 40 mg PO BID #90 cap 02/05/22 03/05/22 Rx release amitriptyline 50 mg tablet 50 mg PO QHS #90 tablet 02/10/22 03/05/22 Rx atorvastatin 20 mg tablet 20 mg PO DAILY #90 tablet 02/10/22 03/05/22 Rx cholecalciferol (vitamin D3) 50 mcg PO DAILY 03/04/22 03/04/22 History Sedation/Anesthesia: No previous sedation/anesthesia problems (including family history). [facility] Past Medical History Medical History Anxiety Atrial fibrillation status post 3 ablation some 3 of 0 9, 5 oval 9, 7 9. Paroxysmal. On anticoagulation. BMI 28.0-28.9,adult Cardiac arrhythmia Hx SVT - s/p ablation x3 CHF (congestive heart failure) ONLY DURING in 2000, EF% 69%, no issues since Depression Encounter for gynecological examination (general) (routine) without abnormal findings Encounter for screening for malignant neoplasm of cervix Eye problems Headache Heartburn Herniated disc Hypertension Insomnia Migraine Neuropathy Osteoporosis Other specified personal risk factors, not elsewhere classified Personal history of nicotine dependence Perspiration excessive Post menopausal problems Right shoulder pain Rosacea Sleep disorder Surgical History Surgical History H/O colonoscopy with polypectomy History of back surgery Lower Back 07/2018 Back L4 L5- 06/2019 History of 04/2001 History of foot surgery Torn Ligament Right foot 2016 History of heart surgery Heart Ablations 01/2009 History of hemorrhoidectomy 10/2012 History of knee replacement procedure of right knee 09/2014 revision-poly exchange 06/11/2020 History of nasal surgery History of neck surgery 01/2000 Neck through front-10/2018 Neck buckled, went through back of neck-01/2019 Hx of removal of ovary Family History Family History Father Cerebrovascular accident Family history of heart disease in male family member before age 55 Hypertension Family history of lung cancer Sibling Family history of heart disease in male family member before age 55 Mother Cancer Other Family history of cardiovascular disease Social History Social History Social History: Patient is recently . She has 1 son who is in college. She does not have a a durable power law writer for healthcare. She is a full code. 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 She stated that she quit smoking 4 months ago. No alcohol marijuana or illicit drugs. Smoking packs per day: 0.5 Smoking cigarettes per day: 10.0 Years smoked:
[2022-03-05 10:30] VITALS: BP 137/57; PULSE 76; RESP 12; O2SAT 99
[2022-03-05 10:35] VITALS: BP 133/57; PULSE 78; RESP 19; O2SAT 99
[2022-03-05 10:40] VITALS: BP 138/68; PULSE 79; RESP 17; O2SAT 99
--- NOTE | 2022-03-05 10:41 | P.OP_ITS ---
Procedure Note - Detailed Date of Procedure 03/05/22 Pre-op Diagnosis Recurrent Syncope Post-op Diagnosis Same Procedure Performed Implantation of a Biotronik loop recorder under local anesthesia Surgeon Coretta Childers MD Anesthesia Local Indications Recurrent syncope Description of Procedure After informed consent, the left chest was prepped and draped in usual fashion. The left parasternal area was infiltrated with 1% lidocaine. A Biotronik loop recorder was implanted along the left parasternal border. Hemostasis obtained with local pressure and the incision was closed with skin adhesive. A sterile dressing was applied. Implants S[employer]ronik bile monitor IIIm, Ref [id number] Serial # [id number] Estimated Blood Loss 1 Complications No immediate complications Condition Stable Disposition Observation
--- NOTE | 2022-03-05 10:41 | PM.OP ---
Procedure Note - Brief Procedure Note - Brief Date of procedure: 03/05/22 Pre-op diagnosis: Recurrent Syncope Post-op diagnosis: Same Procedure performed: Implantation of a Biotronik loop recorder Description of procedure: Uneventful loop recorder implant Surgeon: Coretta Childers MD Complications: No immediate complications Condition: Stable Disposition: Observation
[2022-03-05 11:00] VITALS: BP 138/58; PULSE 78; RESP 18; O2SAT 99
== END 2022-03-05 11:05 | disposition home or self-care (01) ==
PROVIDERS: PCP Internal Medicine; Visit Provider Internal Medicine Cardiovascular Disease
PROC: (CPT 33285; principal; 2022-03-05 10:00)
DX: R55 Syncope and collapse (principal); I48.0 Paroxysmal atrial fibrillation; F41.8 Other specified anxiety disorders; I10 Essential (primary) hypertension; M81.0 Age-related osteoporosis without current pathological fracture; G62.9 Polyneuropathy, unspecified; Z79.82 Long term (current) use of aspirin; Z87.891 Personal history of nicotine dependence
CPT/HCPCS: 33285; C1764

== ENCOUNTER → 2022-06-02 08:17 | Outpatient (CLI) | payer MEDICARE, SELFPAY ==
--- NOTE | ~2022-06-02 | CT_ITS ---
EXAMINATION: CT lung screening DATE: 06/02/2022 08:41 INDICATION: Personal history of nicotine dependence, current smoker with 23 pack year history TECHNIQUE: Computed tomography (CT) of the chest was performed without intravenous contrast. The dose -length product (DLP) was 213.31 mGy-cm. Automated exposure control and iterative reconstruction tech [employer] were employed. COMPARISON: 05/31/2021 FINDINGS: There is mild emphysema. There is a stable 4 mm subpleural nodule of the right lower lobe w ith punctate calcification. Also seen is a stable 2 mm subpleural nodule of the right lower lobe on i mage 82. No new pulmonary nodules are identified. The lungs are free of acute opacities. No pleural e ffusion or pneumothorax. No pathologically enlarged thoracic lymph nodes are identified. The heart si ze is normal. There are changes of anterior fusion in the lower cervical spine. There is moderate tho racic spondylosis. A cardiac monitoring device has been implanted in the inferomedial left anterior chest wall. IMPRESSION: 1. Lung-RADS category 2: Benign appearance or behavior. Continue annual screening with noncontrast lo w-dose chest CT in 12 months. Reviewed, dictated and finalized at location B. IMPRESSION: 1. Lung-RADS category 2: Benign appearance or behavior. Continue annual screeni ng with noncontrast low-dose chest CT in 12 months.
== END ==
PROVIDERS: PCP Internal Medicine; Visit Provider Internal Medicine
DX: Z12.2 Encounter for screening for malignant neoplasm of respiratory organs (principal); Z87.891 Personal history of nicotine dependence
CPT/HCPCS: 71271

== ENCOUNTER 2022-06-03 00:12 | Day surgery (SDC) | payer MEDICARE, SELFPAY ==
[2022-05-19 13:44] VITALS: BMI 33.9
[2022-06-03 06:22] VITALS: BP 150/58; PULSE 71; RESP 16; TEMP 36.3; O2SAT 100
[2022-06-03] MEDS: LACTATED RINGERS 1,000 ML 150 ML IV CONT (06:25)
--- NOTE | 2022-06-03 07:04 | WPDANESEPPF ---
Anes - Initial Pre Proc Eval Procedure: Operation Date: 06/03/22 07:30 Proposed Procedures p Esophagogastroduodenoscopy & Screening Colonoscopy - Chaim Huber MD Date/Time: 06/03/22 07:04 Surgeon: Chaim Huber MD Pre Op Diagnosis: dysphagia, neoplasm screening Patient Data Age: 66 Gender: F Height: 1.55 m Weight: 92.2 kg Last Vital Signs Temp 36.3 C L 06/03/22 06:22 Pulse 71 06/03/22 06:22 Resp 16 06/03/22 06:22 BP 150/58 H 06/03/22 06:22 Pulse Ox 100 06/03/22 06:22 O2 Del Method Room Air 06/03/22 06:22 Allergies Allergy/AdvReac Type Severity Reaction Status Date / Time codeine Allergy Intermediate Hives Verified 06/03/22 06:19 Home Medications Medication Instructions Recorded Confirmed Type calcium carbonate 600 mg-vitamin 1 tablet PO BID 01/12/20 06/03/22 History D3 20 mcg (800 unit) chewable tablet (Caltrate 600 plus D) wqjgqiml-obo-fhjfb acid 0.4 1 tablet PO DAILY 01/12/20 06/03/22 History mg-lycopene 300 mcg-lutein 250 mcg tablet (Centrum Silver) metoprolol tartrate 25 mg tablet 25 mg PO BID 03/22/20 06/03/22 History estradiol 10 mcg vaginal insert 10 mcg vaginal 2XW 10/31/20 06/03/22 History (Imvexxy Maintenance Pack) amlodipine 10 mg tablet 10 mg PO DAILY #90 tabs 02/20/21 06/03/22 Rx aspirin 325 mg tablet 325 mg PO DAILY 06/13/21 06/03/22 History cyclosporine 0.05 % eye drops in a 1 drp EACH EYE Q12H 06/13/21 06/03/22 History dropperette (Restasis) gabapentin 300 mg capsule 300 mg PO BID 90 days #180 caps 01/16/22 06/03/22 Rx atorvastatin 20 mg tablet 20 mg PO DAILY #90 tabs 02/10/22 06/03/22 Rx cholecalciferol (vitamin D3) 50 50 mcg PO DAILY 03/04/22 06/03/22 History mcg (2,000 unit) capsule omeprazole 40 mg capsule,delayed 40 mg PO BID #90 caps 05/05/22 06/03/22 Rx release furosemide 40 mg tablet 40 mg PO DAILY 05/19/22 06/03/22 History metolazone 2.5 mg tablet 2.5 mg PO DAILY 05/19/22 06/03/22 History mineral oil 15 ml PO DAILY 05/19/22 06/03/22 History minocycline 50 mg capsule 50 mg PO DAILY 05/19/22 06/03/22 History polyethylene glycol 3350 17 gram 17 g PO DAILY 05/19/22 06/03/22 History oral powder packet (Miralax) psyllium 1 packet PO DAILY 05/19/22 06/03/22 History umeclidinium 62.5 mcg-vilanterol 1 inh inhalation DAILY PRN Dyspnea 05/19/22 06/03/22 History 25 mcg/actuation powdr for inhalation (Anoro Ellipta) duloxetine 30 mg capsule,delayed 30 mg PO DAILY #30 caps 05/20/22 06/03/22 Rx release (Cymbalta) Patient hx anesthesia problems: none Family hx anesthesia problems: none Results Review: All pre-operative results and documents have been reviewed as part of the pre-operative evaluation. [facility] Past Medical History Medical History Anxiety Atrial fibrillation status post 3 ablation some 3 of 0 9, 5 oval 9, 7 9. Paroxysmal. On anticoagulation. BMI 28.0-28.9,adult Cardiac arrhythmia Hx SVT - s/p ablation x3 CHF (congestive heart failure) ONLY DURING in 2000, EF% 69%, no issues since Depression Encounter for gynecological examination (general) (routine) without abnormal findings Encounter for screening for malignant neoplasm of cervix Eye problems Headache Heartburn Herniated disc Hypertension Insomnia Migraine Neuropathy Osteoporosis Other specified personal risk factors, not elsewhere classified Personal history of nicotine dependence Perspiration excessive Post menopausal problems Right shoulder pain Rosacea Sleep disorder Surgical History Surgical History H/O colonoscopy with polypectomy History of back surgery Lower Back 07/2018 Back L4 L5- 06/2019 History of 04/2001 History of foot surgery Torn Ligament Right foot 2016 History of heart surgery Heart Ablations 01/2009 History of hemorrhoidectomy 10/2012 History of knee replace
[2022-06-03] MEDS: BENZOCAINE (*SP) 60 ML SPRAY CAN (HURRICAINE) 1 SPRAY MUCOUS MEM (07:44)
--- NOTE | 2022-06-03 07:54 | SUR.OPER ---
EGD ended at 0749. Colonoscopy started at 0755.
--- NOTE | 2022-06-03 08:20 | PM.IMHP ---
H&P: HPI History of Present Illness Date/Time: 06/03/22 08:20 Chief Complaint: Dysphagia and neoplasia screening. Narrative: This is a 66-year-old white female patient who presents complaint dysphagia. She states solid foods will catch the mid substernal portion of the chest. Patient states this occurs intermittently. Not always consistently with same food. She presents today for EGD. Additionally patient presents for colonoscopy. Has been 10 years since last screening exam. She states her current weight appetite bowel movements are normal. Neoplasia screening is advised. She has had no bleeding or weight loss. Family history noncontributory. Review of Systems Review of Systems: Review of systems noncontributory. [facility] Past Medical History Medical History Anxiety Atrial fibrillation status post 3 ablation some 3 of 0 9, 5 oval 9, 7 9. Paroxysmal. On anticoagulation. BMI 28.0-28.9,adult Cardiac arrhythmia Hx SVT - s/p ablation x3 CHF (congestive heart failure) ONLY DURING in 2000, EF% 69%, no issues since Depression Encounter for gynecological examination (general) (routine) without abnormal findings Encounter for screening for malignant neoplasm of cervix Eye problems Headache Heartburn Herniated disc Hypertension Insomnia Migraine Neuropathy Osteoporosis Other specified personal risk factors, not elsewhere classified Personal history of nicotine dependence Perspiration excessive Post menopausal problems Right shoulder pain Rosacea Sleep disorder Surgical History Surgical History H/O colonoscopy with polypectomy History of back surgery Lower Back 07/2018 Back L4 L5- 06/2019 History of 04/2001 History of foot surgery Torn Ligament Right foot 2016 History of heart surgery Heart Ablations 01/2009 History of hemorrhoidectomy 10/2012 History of knee replacement procedure of right knee 09/2014 revision-poly exchange 06/11/2020 History of nasal surgery History of neck surgery 01/2000 Neck through front-10/2018 Neck buckled, went through back of neck-01/2019 Hx of removal of ovary Family History Family History Father Cerebrovascular accident Family history of heart disease in male family member before age 55 Hypertension Family history of lung cancer Sibling Family history of heart disease in male family member before age 55 Mother Cancer Other Family history of cardiovascular disease Social History Social History (Updated 06/03/22 @ 07:05 by Benny Smith MD) Social History: Patient is recently . She has 1 son who is in college. She does not have a a durable power business attorney for healthcare. She is a full code. 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 No alcohol marijuana or illicit drugs. Smoking packs per day: 0.5 Smoking cigarettes per day: 10.0 Years smoked: 50 Smoking pack-years: 25.00 Smoking status: Current every day smoker Tobacco type: cigarettes Second hand tobacco smoke exposure: Yes Alcohol intake: former Substance use: never Substance use type: does not use Living arrangements: with family Gender identity (if verbalized by the patient): Female Spiritual care concerns: No Meds Home Medications and Allergies Home Medications Medication Instructions Recorded Confirmed Type calcium carbonate 600 mg-vitamin 1 tablet PO BID 01/12/20 06/03/22 History D3 20 mcg (800 unit) chewable tablet (Caltrate 600 plus D) ljqjvkkn-gaq-eyaob acid 0.4 1 tablet PO DAILY 01/12/20 06/03/22 History mg-lycopene 300 mcg-lutein 250 mcg tablet (Centrum Silver) metoprolol tartrate 25 mg tablet 25 mg PO BID 03/22/20 06/03/22 History estradiol 10 mcg vaginal insert 10 mcg vaginal 2XW 10/31/20 06/03/22 History (Imvexxy Kashif
[2022-06-03 08:23] VITALS: BP 124/43; PULSE 86; RESP 20; O2SAT 100
[2022-06-03 08:33] VITALS: BP 127/51; PULSE 73; RESP 28; O2SAT 100
[2022-06-03 08:43] VITALS: BP 126/51; PULSE 73; RESP 22; O2SAT 100
== END 2022-06-03 08:50 | disposition home or self-care (01) ==
PROVIDERS: PCP Internal Medicine; Visit Provider Internal Medicine Gastroenterology
PROC: 0DJ08ZZ Inspection of Upper Intestinal Tract, Via Natural or Artificial Opening Endoscopic (ICD-10-PCS; CPT 43235; principal; 2022-06-03 07:30)
DX: Z12.11 Encounter for screening for malignant neoplasm of colon (principal); D12.2 Benign neoplasm of ascending colon; D12.5 Benign neoplasm of sigmoid colon; Q39.4 Esophageal web; K64.8 Other hemorrhoids; R13.10 Dysphagia, unspecified; F41.9 Anxiety disorder, unspecified; I48.91 Unspecified atrial fibrillation; F32.A Depression, unspecified; I10 Essential (primary) hypertension; M81.0 Age-related osteoporosis without current pathological fracture; G62.9 Polyneuropathy, unspecified; G47.9 Sleep disorder, unspecified; F17.210 Nicotine dependence, cigarettes, uncomplicated; Z79.82 Long term (current) use of aspirin; E66.9 Obesity, unspecified; Z68.38 Body mass index [BMI] 38.0-38.9, adult
CPT/HCPCS: 45385; 43235; 43450; 88305; J2704; J7120

== ENCOUNTER 2022-06-19 10:34 | Outpatient (CLI) | payer MEDICARE, SELFPAY ==
--- NOTE | ~2022-06-19 | US_ITS ---
EXAMINATION:US venous doppler LE BI INDICATION:Lower extremity edema TECHNIQUE: Multiple grayscale, color flow and Doppler images of the right and left lower extremity de ep venous systems were obtained and reviewed. COMPARISON:No prior studies for comparison. FINDINGS: The common femoral, superficial femoral and popliteal veins demonstrate normal respiratory variation, augmentation and compressibility. Color flow is also seen within the posterior tibial, pe roneal, greater saphenous and profunda veins. IMPRESSION: 1: No lower extremity deep venous thrombosis. Reviewed, dictated and finalized at location A.
== END 2022-06-19 10:35 | disposition home or self-care (01) ==
PROVIDERS: PCP Internal Medicine; Visit Provider Internal Medicine Cardiovascular Disease
DX: R60.0 Localized edema (principal)
CPT/HCPCS: 93970

== ENCOUNTER → 2022-10-06 10:05 | Outpatient (CLI) | payer MEDICARE, SELFPAY ==
--- NOTE | ~2022-10-06 | MM_ITS ---
EXAMINATION: MM screening [facility] BI w magaly HISTORY: Screening mammogram TECHNIQUE: Craniocaudal and mediolateral oblique 3-D tomosynthesis images were obtained and synthetic 2-D images were generated. CAD analysis was submitted and interpreted. COMPARISON: 10/01/2021, 09/21/2020, 06/16/2019 BREAST PARENCHYMAL COMPOSITION: There are scattered areas of fibroglandular density. FINDINGS: No suspicious mass, calcification, or architectural distortion are identified in either viviane ast to suggest malignancy. There has been no suspicious interval change. IMPRESSION: 1. No mammographic evidence of malignancy. 2. Recommend routine screening mammography in one year. BI-RADS Category 1: Negative Reviewed, dictated and finalized at location A. CUTTER
--- NOTE | ~2022-10-06 | DEXA_ITS ---
Bone Density Report Name: CHRISTINE STEPHENS Age: 67 Sex: Female Ethnicity: White Date of : 1955 Indication: postmenopausal; screening for osteoporosis; height loss; prior fracture; Referring Provider: Rubina Welch Study: Bone densitometry was performed. Exam Date: October 06, 2022 Accession number: [id number] Bone Density: Region BMD T-score Z-score Classification AP Spine (L1, L2) 1.258 2.5 4.3 Normal Femoral Neck (Left) 0.648 -1.8 -0.2 Osteopenia Total Hip (Left) 0.822 -1.0 0.3 Normal Femoral Neck (Right) 0.677 -1.5 0.0 Osteopenia Total Hip (Right) 0.879 -0.5 0.8 Normal Total Hip Mean 0.851 -0.8 0.6 Normal World Health Organization criteria for BMD impression classify patients as: Normal (T-score at or above -1.0), Osteopenia (T-score between -1.0 and -2.5), or Osteoporosis (T-score at or below -2.5). 10-year Fracture Risk(1): Major Osteoporotic Fracture 15% Hip Fracture 3.0% Reported Risk Factors: [place] (), Neck BMD=0.648, BMI=37.3, previous fracture, smoking (1) FRAX(R) Version 3.08. Fracture probability calculated for an untreated patient. Fracture probability may be lower if the patient has received treatment. Previous Exams: Region Exam Age BMD T-score BMD Change BMD Change Date g/cm2 vs Baseline vs Previous AP Spine(L1, L2) 10/06/2022 67 1.258 2.5 0.134 0.131 09/21/2020 65 1.127 1.3 0.003 0.024* 04/04/2015 59 1.103 1.1 -0.021 -0.009 09/10/2012 57 1.112 1.2 -0.012 -0.044* 05/03/2010 54 1.156 1.6 0.032* 0.032* 03/24/2008 52 1.124 1.3 Total Hip(Left) 10/06/2022 67 0.822 -1.0 -0.153 -0.037 09/21/2020 65 0.859 -0.7 -0.116* -0.047* 05/28/2018 62 0.906 -0.3 -0.069* 0.007 04/04/2015 59 0.899 -0.4 -0.076* -0.013 09/10/2012 57 0.912 -0.2 -0.063* -0.034* 05/03/2010 54 0.946 0.0 -0.029* -0.029* 03/24/2008 52 0.975 0.3 Total Hip(Right) 10/06/2022 67 0.879 -0.5 -0.137 0.050 09/21/2020 65 0.830 -0.9 -0.187* -0.028* 05/28/2018 62 0.858 -0.7 -0.159* -0.026 04/04/2015 59 0.883 -0.5 -0.133* -0.032* 09/10/2012 57 0.915 -0.2 -0.101* -0.093* 05/03/2010 54 1.008 0.5 -0.008 -0.008 03/24/2008 52 1.016 0.6 *Denotes significance at 95% confidence le
== END ==
PROVIDERS: PCP Internal Medicine; Visit Provider Student in an Organized Health Care Education/Training Program
DX: Z12.31 Encounter for screening mammogram for malignant neoplasm of breast (principal); Z78.0 Asymptomatic menopausal state; M85.852 Other specified disorders of bone density and structure, left thigh; M85.851 Other specified disorders of bone density and structure, right thigh
CPT/HCPCS: 77063; 77067; 77080

== ENCOUNTER → 2023-06-10 08:00 | Outpatient (CLI) | payer MEDICARE, SELFPAY ==
--- NOTE | ~2023-06-10 | XR_ITS ---
Left elbow Technique: AP and lateral views were obtained. Clinical History: Pain Findings: No acute fracture or dislocation is seen. Osseous alignment is anatomic. There is mild dege nerative spurring about the elbow. There is no displacement of the fat pads, and no evidence for join t effusion. There is prominent soft tissue swelling over the olecranon. Impression: Olecranon bursitis. Mild degenerative change at the elbow. Reviewed, dictated and finalized at location . Impression: Olecranon bursitis. Mild degenerative change at the elbow.
--- NOTE | ~2023-06-10 | XR_ITS ---
Right elbow Technique: AP and lateral views were obtained. Clinical History: Pain Findings: No acute fracture or dislocation is seen. Osseous alignment is anatomic. Joint spaces are p reserved. There is no displacement of the fat pads, and no evidence of joint effusion. There is promi nent soft tissue swelling over the olecranon. Impression: Marked olecranon bursitis. Reviewed, dictated and finalized at location . Impression: Marked olecranon bursitis.
== END ==
PROVIDERS: PCP Nurse Practitioner; Visit Provider Nurse Practitioner
DX: M70.21 Olecranon bursitis, right elbow (principal); M70.22 Olecranon bursitis, left elbow
CPT/HCPCS: 73070

== ENCOUNTER → 2023-12-15 07:04 | Outpatient (CLI) | payer MEDICARE, SELFPAY ==
--- NOTE | ~2023-12-15 | MM_ITS ---
EXAMINATION: MM screening [facility] BI w magaly HISTORY: Screening mammogram TECHNIQUE: Craniocaudal and mediolateral oblique 3-D tomosynthesis images were obtained and synthetic 2-D images were generated. CAD analysis was submitted and interpreted. COMPARISON: 09/28/2022, 10/01/2021, 09/21/2020 bilateral screening mammogram examinations BREAST PARENCHYMAL COMPOSITION: There are scattered areas of fibroglandular density. FINDINGS: There is no evidence of suspicious mass, calcification, or architectural distortion to sugg est malignancy in either breast. There has been no suspicious interval change. IMPRESSION: 1. No mammographic evidence of malignancy. 2. Recommend routine screening mammography in one year. BI-RADS Category 1: Negative Reviewed, dictated and finalized at location A. ON STUDY ENGINEER
== END ==
PROVIDERS: PCP Registered Nurse; Visit Provider Registered Nurse
DX: Z12.31 Encounter for screening mammogram for malignant neoplasm of breast (principal)
CPT/HCPCS: 77063; 77067

== ENCOUNTER → 2023-12-30 08:23 | Outpatient (CLI) | payer MEDICARE, SELFPAY ==
--- NOTE | ~2023-12-30 | XR_ITS ---
EXAMINATION: XR thoracic spine 2V DATE: 12/30/2023 08:35 INDICATION: Thoracic back pain TECHNIQUE: AP and lateral views of the thoracic spine are obtained. COMPARISON: None. FINDINGS: Surgical changes are noted in the cervical spine. Bone alignment is normal. There is no fra cture. The vertebral body heights are maintained. There is moderate loss of intervertebral disc space height in the lower thoracic spine. There is mild loss of disc space height throughout the remainder of the thoracic spine. IMPRESSION: 1. Moderate thoracic spondylosis without acute findings. Reviewed, dictated and finalized at location B. EL ASSEMBLY INSPECTOR
== END ==
PROVIDERS: PCP Family Medicine; Visit Provider Family Medicine
DX: M47.894 Other spondylosis, thoracic region (principal)
CPT/HCPCS: 72070

== ENCOUNTER → 2024-01-12 07:43 | Outpatient (CLI) | payer MEDICARE, SELFPAY ==
--- NOTE | ~2024-01-12 | MR_ITS ---
EXAMINATION: MR lumbar spine wo con DATE: 01/12/2024 08:51 INDICATION: Radiculopathy, lumbosacral region. Low back pain. TECHNIQUE: Magnetic resonance imaging (MRI) of the lumbar spine was performed without intravenous con trast. COMPARISON: Lumbar spine MRI 03/08/2019 FINDINGS: There is 14 degrees levoscoliosis of lumbar spine. Vertebral body heights are normal. There is moderately decreased disc height at T9-T10, severely decreased disc height at T10-T11, moderately decreased disc height at T11-T12, and severely decreased disc height from L1-L2 through L5-S1. There is interbody fusion at L4-L5. There are changes of posterior fusion procedure at L4-L5 with pedicle screws. The distal spinal cord signal intensity is normal. The conus medullaris is at L1. There is a 1.2 cm cyst in right kidney. The following disc levels are specifically discussed: L1-L2: The disc is bulging and has an annular fissure. There is moderate bilateral facet joint osteoa rthritis. There is mild bilateral neural foraminal stenosis. There is mild central canal stenosis. L2-L3: The disc is bulging and has an annular fissure. There is severe bilateral facet joint osteoart hritis. There is mild bilateral neural foraminal stenosis. There is mild central canal stenosis. L3-L4: The disc is bulging and has an annular fissure. There is severe bilateral facet joint osteoart hritis. There is moderate right and mild left neural foraminal stenosis. There is mild central canal stenosis. L4-L5: The disc is bulging. There is mild bilateral facet joint osteoarthritis. There is moderate and mild left neural foraminal stenosis. There is mild central canal stenosis with posterior decompressi on. L5-S1: The disc is bulging and has an annular fissure. There is moderate bilateral facet joint osteoa rthritis. There is mild bilateral neural foraminal stenosis. There is mild central canal stenosis. IMPRESSION: 1. Severe lumbar spondylosis with interval worsening at L1-L2. 2. Anterior and posterior fusion at L4-L5. 3. Lumbar levoscoliosis. Reviewed, dictated and finalized at location E. ATRY TEACHER
--- NOTE | ~2024-01-12 | MR_ITS ---
EXAMINATION: MR thoracic spine wo con DATE: 01/12/2024 08:47 INDICATION: Radiculopathy, thoracic region. TECHNIQUE: Magnetic resonance imaging (MRI) of the thoracic spine was performed without intravenous c ontrast. Sagittal localizer T1-weighted FSE of the cervical spine was obtained. Thoracic spine sequen keysha included sagittal T2-weighted FSE, sagittal T1-weighted FSE, sagittal T2-weighted FS FSE, and axi al T2-weighted FSE. COMPARISON: Thoracic spine radiographs 12/30/23 FINDINGS: There are changes of anterior fusion procedures in cervical spine. There is 3 degrees dextr ocurvature of thoracic spine. Vertebral body heights are . There is mildly decreased disc T2-T3, shannen rely decreased disc height at T9-T10 and T10-T11, and moderately decreased disc height at T11-T12. At T2-T3, there is a central extrusion with mild central canal stenosis. From T9-T10 through T11-T12, t he discs are bulging with mild central canal stenosis. There is multilevel mild to moderate facet ana lilia nt osteoarthritis. On the left, there is mild neural foraminal stenosis at T9-T10 and T10-T11. The sp inal cord signal intensity is normal. The conus medullaris is at L1. IMPRESSION: 1. Severe thoracic spondylosis. Reviewed, dictated and finalized at location E. ING DOCK HELPER
== END ==
PROVIDERS: PCP Family Medicine; Visit Provider Anesthesiology Pain Medicine
DX: M48.062 Spinal stenosis, lumbar region with neurogenic claudication (principal); M96.1 Postlaminectomy syndrome, not elsewhere classified; M47.24 Other spondylosis with radiculopathy, thoracic region; M47.26 Other spondylosis with radiculopathy, lumbar region; Z98.1 Arthrodesis status
CPT/HCPCS: 72146; 72148

== ENCOUNTER 2024-03-14 10:09 | Outpatient (CLI) | payer MEDICARE, SELFPAY ==
--- NOTE | ~2024-03-14 | XR_ITS ---
EXAMINATION: XR lumbar spine 6V w bending DATE: 03/14/2024 10:44 INDICATION: Postlaminectomy syndrome, not elsewhere classified. TECHNIQUE: 7 views of lumbar spine including standing views and flexion and extension views were obta ined. COMPARISON: None. FINDINGS: There is 13 degrees levoscoliosis of lumbar spine. There are changes of posterior fusion pr ocedure at L4-L5 with pedicle screws. Vertebral body heights are normal. There is moderately decrease d disc height at L1-L2 and severely decreased disc height at from L2-L3 through L5-S1. There is inter body fusion at L4-L5. The spine is hypomobile with flexion and extension. There is multilevel severe facet joint osteoarthritis. An implant overlies left chest. IMPRESSION: 1. Severe lumbar spondylosis. 2. Anterior and posterior fusion at L4-L5. 3. Lumbar levoscoliosis. Reviewed, dictated and finalized at location A.
--- NOTE | ~2024-03-14 | XR_ITS ---
EXAMINATION: XR cervical spine 4-5V DATE: 03/14/2024 10:44 INDICATION: Postlaminectomy syndrome, elsewhere classified. TECHNIQUE: 4 views of cervical spine including standing views were obtained. COMPARISON: Cervical spine MRI 10/11/2020 FINDINGS: There is 3 mm anterolisthesis of C3 on C4. There are changes of anterior fusion procedure f rom C3 to C7 with healed interbody bone. There is anterior instrumentation at C3-C4 and at C6-C7. The re are changes of posterior fusion procedure at C3-C4 with pedicle screws. There is multilevel mild f acet joint hypertrophy. No central canal stenosis or prevertebral soft tissue swelling. IMPRESSION: 1. Anterior fusion procedure from C3 to C7 and posterior fusion procedure at C3-C4. Reviewed, dictated and finalized at location A. IMPRESSION: 1. Anterior fusion procedure from C3 to C7 and posterior fusion procedure at C3 -C4.
== END 2024-03-14 10:10 ==
PROVIDERS: PCP Family Medicine; Visit Provider Anesthesiology Pain Medicine
DX: M96.1 Postlaminectomy syndrome, not elsewhere classified (principal); M54.2 Cervicalgia; M47.896 Other spondylosis, lumbar region; Z98.1 Arthrodesis status
CPT/HCPCS: 72050; 72114

== ENCOUNTER 2024-03-22 06:01 | Day surgery (SDC) | payer MEDICARE, SELFPAY ==
--- NOTE | ~2024-03-22 | XR_ITS ---
EXAMINATION: XR fluoroscopy no charge DATE: 03/22/2024 7:30 CDT INDICATION: PAOLA T9,T10,T11 MEDIAL BRANCH NERVE BK . TECHNIQUE: 7 fluoroscopic images and 2 cine clips of the thoracic spine were obtained during bilatera l T9-T11 medial branch nerve block, performed by Lui Fernandez MD. I was not present during the pr ocedure. Fluoroscopy exposure time was 22.2 seconds. Air Kerma 8.86 mGy. COMPARISON: None FINDINGS/IMPRESSION: Fluoroscopic documentation of bilateral T9-T11 medial branch nerve block. Please refer to the operati ve note for complete procedural details . Reviewed, dictated and finalized at location K.
--- NOTE | 2024-03-22 05:34 | PM.HPGS ---
History of Present Illness History of Present Illness Consent: Risks, benefits, and alternatives have been discussed and questions answered. Patient agrees to proceed with procedure. Chief complaint: Thoracic Spondylosis, Pain in thoracic spine Narrative: Frannie Palma is a 68 year old female with chronic, recalcitrant and disabling Bilateral thoracolumbar back pain secondary to degenerative spondylosis with failure to respond to aggressive conservative measures including PT, oral and topical analgesics, opioid and nonopioid analgesics, rest, time and activity/behavioral modification over the past 1-2 years who presents for diagnostic/prognostic medial branch blocks (#1) under fluoroscopic guidance and with contrast control. Review of Systems Review of Systems: Patient denies any new infectious, allergic, cardiopulmonary, neurologic or constitutional symptoms or changes in activity tolerance or exercise capacity including new or progressive SOB/HANNON, peripheral edema, productive cough, dysuria, nausea/vomiting, diarrhea, weight change, fevers/chills/night sweats, new or progressive neurologic deficit, cognitive or mood changes since last seen, except as documented in the HPI. All systems reviewed & are unremarkable except as noted in HPI and below PMFSH Past Medical History Medical History Anxiety Atrial fibrillation status post 3 ablation some 3 of 0 9, 5 oval 9, 7 9. Paroxysmal. On anticoagulation. BMI 28.0-28.9,adult Cardiac arrhythmia Hx SVT - s/p ablation x3 CHF (congestive heart failure) ONLY DURING in 2000, EF% 69%, no issues since Depression Encounter for gynecological examination (general) (routine) without abnormal findings Encounter for screening for malignant neoplasm of cervix Eye problems Headache Heartburn Herniated disc History of broken leg Hypertension Insomnia Migraine Neuropathy Osteoporosis Other specified personal risk factors, not elsewhere classified Overweight (BMI 25.0-29.9) Personal history of nicotine dependence Perspiration excessive Post menopausal problems Right shoulder pain Rosacea Sleep disorder Surgical History Surgical History H/O colonoscopy with polypectomy History of back surgery Lower Back 07/2018 Back L4 L5- 06/2019 History of 04/2001 History of foot surgery Torn Ligament Right foot 2016 History of heart surgery Heart Ablations 01/2009 History of hemorrhoidectomy 10/2012 History of knee replacement procedure of right knee 09/2014 revision-poly exchange 06/11/2020 History of nasal surgery History of neck surgery 01/2000 Neck through front-10/2018 Neck buckled, went through back of neck-01/2019 Hx of removal of ovary Family History Family History Father Cerebrovascular accident Family history of heart disease in male family member before age 55 Hypertension Family history of lung cancer Sibling Family history of heart disease in male family member before age 55 Mother Cancer Other Family history of cardiovascular disease Social History Social History Social History: Patient is recently . She has 1 son who is in college. She does not have a a durable power business attorney for healthcare. She is a full code. 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 No alcohol marijuana or illicit drugs. Smoking packs per day: 0.5 Smoking cigarettes per day: 10.0 Years smoked: 50 Smoking pack-years: 25.00 Smoking status: Current every day smoker Tobacco type: cigarettes Second hand tobacco smoke exposure: Yes Alcohol intake: former Substance use: never Substance use type: does not use Current Housing: Decline to Answer Concerned About Future Housing: Decline to Answer Difficult
--- NOTE | 2024-03-22 05:41 | WPDHPUPDATE1 ---
History and Physical Update Update Date/Time: 03/22/24 05:41 History and Physical has been reviewed, including an updated exam of the patient. There are NO changes in the patient's condition. Risks, benefits, and alternatives have been discussed and questions answered. Patient agrees to proceed with procedure.
--- NOTE | 2024-03-22 05:42 | W.PM.PROC2 ---
Procedure Note - Detailed Date of Procedure 03/22/24 Pre-op Diagnosis Thoracic Spondylosis, Pain in thoracic spine Post-op Diagnosis Same Procedure Performed Diagnostic Bilateral Thoracic Medial Branch Blocks at T9, T10, T11 to Block the Ipsilateral T10-T11, T11-12 Facet Joints Under Fluoroscopic Guidance and with Contrast Control ( 4 levels blocked). Surgeon Lui Fernandez MD Anesthesia Local Description of Procedure INFORMED CONSENT: Risks, benefits and alternatives to the procedure were discussed in detail with the patient who expressed explicit understanding and consent to proceed. Patient was informed verbally and in written form regarding the risks associated with the procedure including the low risk of serious infection, bleeding/bruising, allergic reaction, nerve or organ injury, paralysis, procedural site pain or discomfort, worsening pain and/or mobility, failure to treat and/or disfigurement. The patient expressed explicit understanding and consent to proceed. All materials required for the procedure were available prior to procedure start. Site and side were marked prior to procedure and confirmed in the presence of the patient. PROCEDURE IN DETAIL: The patient was brought to the procedural suite and placed in the prone position. Patient was made comfortable with use of pillows under the head/chest, hips and ankles. Skin overlying the injection site on the affected side(s) was prepared broadly with ChloraPrep applicator and draped in a sterile manner. Aseptic technique was used throughout. The endplates of the vertebral bodies at the site(s) of interest were aligned in the AP view. Ipsilateral oblique angulation was utilized to optimize visualization of the intersection between the superior articulating process and transverse process at each target site. Local anesthesia was established by infiltration with approximately 5 mL of 1% lidocaine via a 1-1/2 inch 27-gauge needle. A 25-gauge 3.5 inch Quincke spinal needle was advanced until the needle tip contacted periosteum at the target site, right T9. Lateral view was utilized to confirm the appropriate placement of the needle tip just anterior to the facet line and superior to the pedicle. In the Lateral view, 0.25 mL of Omnipaque 300 contrast medium was injected after negative aspiration for CSF, blood or other bodily fluid, showing appropriate extra-articular spread of contrast without evidence of intravascular, foraminal or intrathecal placement. A 0.25 mL solution of 0.5% PF bupivacaine was injected after negative repeat aspiration. Appropriate spread of the injectate was confirmed with washout of previously injected contrast. No parasthesias were elicited. Needle was removed completely intact without difficulty. The same procedure was repeated for all additional intended levels/structures treated on the ipsilateral side, right T10, T11 medial branches, with identical methodology modified to compensate for different location, with similar results and no evidence of complication. Patient tolerated this well. The same procedure was repeated for all additional intended levels/structures treated on the contralateral side, left T9, T10, T11 medial branches, with identical methodology modified to compensate for different location, with similar results and no evidence of complication. Patient tolerated this well. Images were saved and documented in the patient chart. Patient's skin was cleansed and sterile bandage applied. The patient tolerated the procedure well. The patient was transported to the recovery area in stable condition where they were observed for an appropriate amount of time prior to discharge, without evidence of complication. Patient was instructed on the appropriate completion of a pain diary over the next 12-24 hours. The patient was instructed to avoid excessive activity for the next 48 hours, including climbing and frequent use of stairs. Showers only for 48 hours. They w
[2024-03-22 06:39] VITALS: BP 119/57; PULSE 105; RESP 16; TEMP 36.4; O2SAT 97; BMI 36.3
[2024-03-22 07:44] VITALS: BP 131/73; PULSE 100; RESP 17; O2SAT 99
[2024-03-22 07:53] VITALS: BP 118/63; PULSE 101; RESP 17; O2SAT 99
[2024-03-22] MEDS: BUPivacaine HCL 0.5% 10 ML AMP 5 ML INFILTRATE (07:54)
[2024-03-22] MEDS: LIDOCAINE HCL 1% PF INJ 5 ML VIAL AFFCTD EYE (07:54)
[2024-03-22 08:04] VITALS: BP 142/122; PULSE 94; RESP 12; O2SAT 96
[2024-03-22 08:13] VITALS: BP 136/68
== END 2024-03-22 08:18 | disposition home or self-care (01) ==
PROVIDERS: PCP Family Medicine; Visit Provider Anesthesiology Pain Medicine
PROC: (CPT 64490; principal; 2024-03-22 07:30)
DX: M54.6 Pain in thoracic spine (principal); M47.814 Spondylosis without myelopathy or radiculopathy, thoracic region
CPT/HCPCS: 64490 ×2; 99199

== ENCOUNTER 2024-05-30 08:06 | Outpatient (CLI) | payer MEDICARE, SELFPAY ==
--- NOTE | ~2024-05-30 | XR_ITS ---
EXAM: XR shoulder LT min 2V DATE: 05/30/2024 08:33 HISTORY: Fall 2 months ago left shoulder pain . COMPARISON: None available. FINDINGS: Normal mineralization. No fracture or dislocation. No lytic or blastic lesion. Moderate si zed inferiorly directed osteophyte projecting off the inferior acromion. Mild degenerative change in the glenohumeral joint and the AC joint. Small glenohumeral joint osteophyte. No erosion or periostea l change. Soft tissues within normal limits. IMPRESSION: No acute osseous finding the left shoulder. Moderate-sized inferiorly directed acromial o steophyte. Mild polyarticular osteoarthritis. Reviewed, dictated and finalized at location K. IMPRESSION: No acute osseous finding the left shoulder. Moderate-sized inferior ly directed acromial osteophyte. Mild polyarticular osteoarthritis.
== END 2024-05-30 08:07 ==
PROVIDERS: PCP Family Medicine; Visit Provider Family Medicine
DX: M25.512 Pain in left shoulder (principal)
CPT/HCPCS: 73030

== ENCOUNTER 2024-10-19 07:54 | Outpatient (CLI) | payer MEDICARE, SELFPAY ==
--- NOTE | ~2024-10-19 | CT_ITS ---
Non-contrast Head CT History: Dizziness Technique: Axial non-contrast imaging of the brain was performed. Dose reduction technique was used on this scan by utilizing automated exposure control and iterative reconstruction technique. The dose -length product (DLP) was 599.57 mGy-cm. Findings: There is no evidence of intracranial hemorrhage, mass lesion, or acute infarct. Brain par enchyma appears normal. The ventricles and subarachnoid spaces are normal in size. The calvarium ap pears normal. The visualized paranasal sinuses and mastoid air cells are clear. Impression: No significant abnormality seen. Reviewed, dictated and finalized at location . ELING STOREKEEPER Impression: No significant abnormality seen.
== END 2024-10-19 07:55 | disposition home or self-care (01) ==
LOC: MICIMG 07:55
PROVIDERS: PCP Family Medicine; Visit Provider Nurse Practitioner Adult Health
DX: R42 Dizziness and giddiness (principal)
CPT/HCPCS: 70450

== ENCOUNTER 2024-11-10 08:41 | Outpatient (CLI) | payer MEDICARE, SELFPAY ==
--- NOTE | ~2024-11-10 | XR_ITS ---
Clinical Indication: Chest pain PA and lateral views of the chest: Comparison: 05/18/2014 Findings: The lungs are clear, without evidence of focal consolidation or pleural effusion. Cardiome diastinal silhouette is within normal limits, with liver core. Bones and soft tissues are unremarkabl e. Impression: Clear lungs. Reviewed, dictated and finalized at location . D CARE LEADER Impression: Clear lungs.
--- NOTE | ~2024-11-10 | XR_ITS ---
XR abdomen/kub 1V 11/10/2024 09:30 Indication: Abdominal pain Procedure: KUB Comparison: No prior studies for comparison. Findings: There are bilateral renal stones. There is a elliptical left ureteral stone just superior t o the left sacroiliac joint. Moderate lumbar spondylosis with levoscoliosis and fusion at L4-5. Bowel gas pattern nonobstructive. Impression: 1: Bilateral renal and left ureteral stones. Reviewed, dictated and finalized at location A. PACKER Impression: 1: Bilateral renal and left ureteral stones.
== END 2024-11-10 08:42 | disposition home or self-care (01) ==
LOC: MICIMG 08:43
PROVIDERS: PCP Family Medicine; Visit Provider Family Medicine
DX: N20.2 Calculus of kidney with calculus of ureter (principal)
CPT/HCPCS: 71046; 74018

== ENCOUNTER 2024-11-16 06:48 | Outpatient (CLI) | payer MEDICARE, SELFPAY ==
--- NOTE | ~2024-11-16 | CT_ITS ---
Non-contrast CT scan of the Abdomen and Pelvis Clinical indication: Ureteral stone Technique: 2.5 mm axial scans were obtained through the abdomen and pelvis without intravenous or or al contrast. Dose reduction technique was used on this scan by utilizing automated exposure control a nd iterative reconstruction technique. The dose-length product (DLP) was 319.65 mGy-cm. Findings: Images through the lung bases reveal grouped left lower lobe nodular opacities, largest me asuring 11 x 5 mm.. There are bilateral lower pole nonobstructing renal calculi, measuring up to 13 mm in maximum diamete r bilaterally. There is mild left hydronephrosis. No right hydronephrosis. No ureteral stones evident . There are ill-defined hypodense areas in the inferior right hepatic lobe, measuring 3.3 cm in diamete r (axial image 53), and 1.5 cm in diameter (axial image 61). The spleen, pancreas, gallbladder, and a drenals appear normal. There is no aortic aneurysm. There is no evidence of bowel obstruction. There is wall thickening and pericolonic inflammatory rushing ge at the sigmoid colon. There is a somewhat ill-defined extraluminal phlegmon with small air bubbles measuring approximately 3.5 cm in maximum diameter (axial image 113 for example). Phlegmon is insepa rable from the vaginal cuff as well. Images through the pelvis were performed. Status post probable hysterectomy. Urinary bladder unremark able. Impression: Nonobstructing bilateral renal calculi, as above. Mild left hydronephrosis could reflect recently pas sed stone. No ureteral stones seen currently. Findings compatible with sigmoid diverticulitis with associated pericolonic phlegmon and small bubble s of local free air. Phlegmon is also inseparable from the vaginal cuff. Correlate clinically for any clinical signs of fistulous connection to the vaginal cuff. Ill-defined hypodense hepatic mass like lesions measuring 3.3 cm and 1.5 cm in size, as detailed abov e. These are indeterminate. Pre and postcontrast CT or MR recommended for for further evaluation. Grouped nodular opacities left lung base, suggestive of infectious/inflammatory process and/or small impacted airways. Follow-up exam in 2-3 months advised given size of the nodules. Reviewed, dictated and finalized at location M. ONAL LOSS PREVENTION MANAGER Impression: Nonobstructing bilateral renal calculi, as above. Mild left hydronephrosis coul d reflect recently passed stone. No ureteral stones seen currently. Findings compatible with sigmoid diverticulitis with associated pericolonic phl egmon and small bubbles of local free air. Phlegmon is also inseparable from th e vaginal cuff. Correlate clinically for any clinical signs of fistulous connec tion to the vaginal cuff. Ill-defined hypodense hepatic mass like lesions measuring 3.3 cm and 1.5 cm in size, as detailed above. These are indeterminate. Pre and postcontrast CT or MR recommended for for further evaluation. Grouped nodular opacities left lung base, suggestive of infectious/inflammatory process and/or small impacted airways. Follow-up exam in 2-3 months advised gi citlaly size of the nodules.
== END 2024-11-16 06:49 | disposition home or self-care (01) ==
PROVIDERS: PCP Family Medicine; Visit Provider Family Medicine
DX: N20.0 Calculus of kidney (principal); N13.30 Unspecified hydronephrosis; K76.89 Other specified diseases of liver; R91.8 Other nonspecific abnormal finding of lung field
CPT/HCPCS: 74176

== ENCOUNTER 2024-12-07 08:00 | Outpatient (CLI) | payer MEDICARE, SELFPAY ==
--- NOTE | ~2024-12-07 | CT_ITS ---
EXAMINATION:CT diagnostic chest w con DATE: 12/07/2024 08:32 INDICATION: Other nonspecific abnormal finding of lung field. TECHNIQUE: Computed tomography (CT) of the chest was performed with 75 mL Omnipaque 350 intravenous c ontrast. Automated exposure control and iterative reconstruction technique were employed. The dose-le ngth product (DLP) was 459.33 mGy-cm. COMPARISON: Chest CT 06/02/2022, abdomen MRI 12/02/2024, CT abdomen and pelvis 11/16/2024 FINDINGS: There is mild scarring at the lung apices. There is mild emphysema. There is a cluster of n odules measuring up to 9 mm in left lower lobe, new from 06/02/22. There is a left posterior diaphragm atic hernia containing fat. No pleural effusion. The heart size is normal. No pericardial effusion. T here is left hilar and mediastinal lymphadenopathy. For example, a left hilar node measures 1.8 x 1.3 cm. There is a 5 mm right thyroid nodule, likely not clinically significant. There are 4 masses in t he liver measuring up to 2.1 cm. There are cysts in right kidney measuring up to 2.8 cm. Partially vi sualized are 2 mm and 7 mm stones in right kidney. There is a left-sided striated nephrogram. There i s urothelial thickening in left renal pelvis. These findings are consistent with pyelonephritis. Ther e are changes of anterior fusion procedure in cervical spine. There are scattered sclerotic and lytic lesions of bone. There is a pathologic fracture left eighth rib. There are pathologic compression fr actures of T1, T2, T9, and T11. There is a subcutaneous electronic implant in left anterior chest wal l. IMPRESSION: 1. Bone lesions, consistent with metastatic disease. CT-guided biopsy of the right ilium is recommend ed. 2. Left lung nodules and left hilar and mediastinal lymphadenopathy, which may be infection or metast atic disease. 3. Left-sided pyelonephritis. 4. Liver masses measuring up to 2.1 cm suspicious for abscesses. Reviewed, dictated and finalized at location A. FIGHTING EQUIPMENT SPECIALIST IMPRESSION: 1. Bone lesions, consistent with metastatic disease. CT-guided biopsy of the ri ght ilium is recommended. 2. Left lung nodules and left hilar and mediastinal lymphadenopathy, which may be infection or metastatic disease. 3. Left-sided pyelonephritis. 4. Liver masses measuring up to 2.1 cm suspicious for abscesses.
--- OUTSIDE RECORDS SUMMARY | 2024-12-07 08:08 | XMS_ITS | Patient Health Summary ---
Author Organization [facility] Address [address] [place] [address] Care Team Providers Care Foreign Diplomat Name Role Phone Edy Aviles DO Primary Care Provider [phone] Note from [facility],non-owned Affiliates and Associated Physician Practices is amultiple site organization consisting of ambulatory clinics and hospital sitesin [place], [place], [place] and [place]. This disclosure is being madepursuant to the Care Everywhere program and may not contain all information available regarding this patient. Last updated 18.[facility] Allergies * Codeine(Urticaria,Nausea and/or Vomiting) -Medium Criticality * Lisinopril(Nausea and/or Vomiting) -Low Criticality Medications * Be aware that medications may not be up to date on this document. Alwaysverify current medications with the patient. * metoprolol tartrate (LOPRESSOR) 25 MG tablet Take 25 mg by mouth 2 times daily * amLODIPine (NORVASC) 5 MG tablet Take 5 mg by mouth once daily * omeprazole (PRILOSEC) 40 MG capsule Take 40 mg by mouth daily before breakfast * amitriptyline (ELAVIL) 25 MG tablet Take 25 mg by mouth at bedtime * cycloSPORINE (RESTASIS) 0.05 % ophthalmic suspension 2 times daily * aspirin (ASPIRIN) 325 MG tablet Take 325 mg by mouth once daily * therapeutic multivitamin-minerals (THERAGRAN-M) tablet Take 1 tablet by mouth daily with food * calcium carbonate (CALTRATE) 600 MG tablet Take 1 tablet by mouth daily with food * vitamin D3 (CHOLECALCIFEROL) 25 MCG (1000 UNITS) tablet Take 2,000 Units by mouth once daily * Estradiol (IMVEXXY MAINTENANCE PACK) 10 MCG INST Insert into the vagina Two times a week * gabapentin (NEURONTIN) 300 MG capsule(Started 10/26/2021) Take 1 (one) capsule by mouth 3 times daily * docusate sodium (COLACE) 100 MG capsule(Started 10/26/2021) Take 1 (one) capsule by mouth 2 times daily Active Problems Problem Noted Date Diagnosed Date Accidental fall from ladder 10/10/2021 Closed fracture of left fibula and tibia 021 Pain of left lower extremity 10/10/2021 Closed fracture of left tibial plateau Retained orthopedic hardware Immunizations * Covid Pfizer primary monovalent 12+ yr 0.3mL Purple cap(Given 09/08/2021, 03/05/2021, 02/05/2021) Social History Tobacco Use Types Packs/Day Years Used Date Smoking Tobacco: Every Day Cigarettes 0.5 52.1 Started: 10/25/1972 Smokeless Tobacco: Never Tobacco Cessation:Ready to Q uit: No Alcohol Use Standard Drinks/Week Comments Not Currently 0 (1 standard drink = 0.6 oz pur e alcohol) AUDIT-C Answer Date Recorded Q1: How often do you have a drink containing alc ohol? Never 10/10/2021 Q2: How many drinks containi ng alcohol do you have on a typical day when you are drinking? 1 or 2 10/10/2021 Q3: How often do you have six or more drinks on one occasion? Never 10/10/2021 Sex and Gender Information Value Date Recorded Sex Assigned at Not on file Gender Identity Not on file Sexual Orientation Not on file Last Filed Vital Signs Vital Sign Reading Time Taken Comments Blood Pressure 148/57 10/26/2021 7:27 AM [employer] Pulse 95 10/26/2021 7:27 AM [employer] Temperature 36.8 ??C (98.3 ??F) 10/26/2021 7:27 AM CS T Respiratory Rate 16 10/25/2021 10:58 PM [employer] Oxygen Saturation 100% 10/26/2021 7:27 AM [employer] Inhaled Oxygen Concentration 40% 10/25/2021 1 2:10 PM [employer] Weight 85.7 kg (189 lb) 07/08/2022 9:04 AM CDT Height 156.2 cm (5' 1.5 ) 07/08/2022 9:04 AM CDT Body Mass Index 35.13 07/08/2022 9:04 AM CDT Medical Devices Implanted Type Area Managing Consultant Device Identifier Shelf Expiration Date Model / Serial / Lot Pin Hlf 255mm 5mm Jtx Lng Ss 35mm Extfix Implanted:Qty: 2 on 10/11/2021 by Jovon Maloney DO at [facility] Left: [employer] [id number] / / Pin Hlf 40mm 5mm Jtx Lng Ti Ntrd Extfix Implanted:Qty: 2 on 10/11/2021 by Jovon Maloney DO at [facility] Left: [employer] [id number] / / Bar Extfix 200mm Jtx Cfbr Nonster Disp Implanted:Qty: 2 on 10/11/2021 by Jovon Maloney DO at [facility] Left: [employer] [id number] / / Screw 3.5mm 46mm Ft Hex Drv Nlckg Fly Implanted:Qty: 1 on 10/25/2021 by Jovon Maloeny DO at [facility] Left: [employer] [id number] / / Screw 3.5mm 50mm Ft Nonlock Hex Drv Elb Implanted:Qty: 2 on 10/25/2021 by Jovon Maloney DO at [facility] Left: [employer] [id number] / / Screw 3.5mm 55mm Ft Slf-Tap Hex Lopro Implanted:Qty: 1 on 10/25/2021 by Jovon Maloney DO at [facility] Left: [employer] [id number] / / Screw 3.5mm 65mm T15 Lck Slf-Tap Tip Tpr Implanted:Qty: 3 on 10/25/2021 by Jovon Maloney DO at [facility] Left: [employer] [id number] / / Screw 3.5mm 70mm T15 Lck Slf-Tap Tip Tpr Implanted:Qty: 2 on 10/25/2021 by Jovon Maloney, DO at [facility] Left: [employer] [id number] / / Plate 5 Hl Lck Lopro Dist Blt Tip Tib Lt Implanted:Qty: 1 on 10/25/2021 by Jovon Maloney, DO at [facility] Left: [employer] [id number] / / Screw 3.5mm 65mm 2.2mm Mldir Lck Sq Drv Implanted:Qty: 1 on 10/25/2021 by Jovon Maloney, DO at [facility] Left: [employer] [id number] / / Screw 3.5mm 80mm Sq Drv Nonlock Lopro Implanted:Qty: 1 on 10/25/2021 by Jovon Maloney, DO at [facility] Left: [employer] [id number] / / Screw 3.5mm 75mm T15 Lck Slf-Tap Tip Tpr Implanted:Qty: 1 on 10/25/2021 by Jovon Maloney, DO at [facility] Left: [employer] [id number] / / Plate 5 Hl Lopro Lck Ulna Olcrn Dist 61 Implanted:Qty: 1 on 10/25/2021 by Jovon Maloney, DO at [facility] Left: [employer] [id number] / / Screw 3.5mm 34mm Ft Nonlock Hex Drv Elb Implanted:Qty: 1 on 10/25/2021 by Jovon Maloney, DO at [facility] Left: [employer] [id number] / / Screw 3.5mm 38mm Ft Slf-Tap Hex Lopro Implanted:Qty: 1 on 10/25/2021 by Jovon Maloney, DO at [facility] Left: [employer] [id number] / / Screw 3.5mm 40mm Ft Slf-Tap Hex Lopro Implanted:Qty: 1 on 10/25/2021 by Jovon Maloney, DO at [facility] Left: [employer] [id number] / / Explanted Type Area Managing Consultant Device Identifier Shelf Expiration Date Model / Serial / Lot Clamp Extfix Jtx 10.5mm Bar To Bar Mr Buitrago Explanted:Qty: 2 on 10/11/2021 at [facility] Left: [employer] [id number] / / Screw 3.5mm 55mm Ft Slf-Tap Hex Lopro Explanted:Qty: 1 on 10/25/2021 by Jovon Maloney DO at [facility] Left: [employer] [id number] / / Wire K 1.6mm 6in Hlf Bynt Pnt Ss Fx Explanted:Qty: 4 on 10/25/2021 by Jovon Maloney DO at [facility] Left: [employer] [id number] / / Screw 3.5mm 36mm Ft Slf-Tap Hex Lopro Explanted:Qty: 1 on 10/25/2021 by Jovon Maloney DO at [facility] Left: [employer] [id number] / / Procedures * DERMATOPATHOLOGY(Performed 02/23/2024) * XR KNEE LEFT 3VW(Performed 07/08/2022) Performed for Closed fracture of left tibial plateau with routine healing, subsequent encounter * XR KNEE LEFT 3VW(Performed 05/06/2022) Performed for Closed fracture of left tibial plateau with routine healing, subsequent encounter * XR KNEE LEFT 3VW(Performed 03/04/2022) Performed for Closed fracture of left tibial plateau with routine healing, subsequent encounter * XR KNEE LEFT 3VW(Performed 01/21/2022) Performed for Closed fracture of left tibial plateau with routine healing, subsequent encounter * XR KNEE LEFT 3VW(Performed 12/24/2021) Performed for Closed fracture of left tibial plateau with routine healing, subsequent encounter * XR KNEE LEFT 3VW(Performed 11/26/2021) Performed for Closed fracture of left tibia and fibula with routine healing, subsequent encounter * XR KNEE LEFT 3VW(Performed 11/05/2021) Performed for Closed fracture of left tibia and fibula with routine healing, subsequent encounter * CBC W/O DIFFERENTIAL(Performed 10/26/2021) Performed for Closed fracture of left tibial plateau, initial encounter * BASIC METABOLIC PANEL (CALCIUM TOTAL)(Performed 10/26/2021) Performed for Closed fracture of left tibial plateau, initial encounter * OT EVAL AND TREAT(Performed 10/25/2021) Performed for Closed fracture of left tibial plateau, initial encounter * XR KNEE LEFT 2VW OR LESS(Performed 10/25/2021) Performed for Closed fracture of left tibial plateau, initial encounter * FL JAQUELIN SURGERY(Performed 10/25/2021) Performed for Closed fracture of left tibial plateau, initial encounter * ENDOTRACHEAL TUBE NOTE(Performed 10/25/2021) * REMOVAL HARDWARE/IMPLANT (ANY AREA)(Performed 10/25/2021) Performed for Type III open fracture of medial portion of left tibial plateau with malunion, subsequent encounter * OPEN REDUCTION INTERNAL FIXATION (ORIF) TIBIAL PLATEAU/PROXIMAL(Performed 10/25/2021) Performed for Type III open fracture of medial portion of left tibial plateau with malunion, subsequent encounter * TYPE + SCREEN PANEL(Performed 10/25/2021) * XR KNEE LEFT 3VW(Performed 10/22/2021) Performed for Closed fracture of left tibia and fibula, initial encounter * CBC W/O DIFFERENTIAL(Performed 10/15/2021) Performed for Closed fracture of left tibia and fibula, initial encounter * BASIC METABOLIC PANEL (CALCIUM TOTAL)(Performed 10/15/2021) Performed for Closed fracture of left tibia and fibula, initial encounter * CBC W/O DIFFERENTIAL(Performed 10/14/2021) Performed for Closed fracture of left tibia and fibula, initial encounter * BASIC METABOLIC PANEL (CALCIUM TOTAL)(Performed 10/14/2021) Performed for Closed fracture of left tibia and fibula, initial encounter * CBC W/O DIFFERENTIAL(Performed 10/13/2021) Performed for Closed fracture of left tibia and fibula, initial encounter * BASIC METABOLIC PANEL (CALCIUM TOTAL)(Performed 10/13/2021) Performed for Closed fracture of left tibia and fibula, initial encounter * SARS-COV-2 (COVID-19) IN HOUSE(Performed 10/12/2021) * CBC W/O DIFFERENTIAL(Performed 10/12/2021) Performed for Closed fracture of left tibia and fibula, initial encounter * BASIC METABOLIC PANEL (CALCIUM TOTAL)(Performed 10/12/2021) Performed for Closed fracture of left tibia and fibula, initial encounter * XR KNEE LEFT 2VW OR LESS(Performed 10/11/2021) Performed for Closed fracture of left tibia and fibula with routine healing, subsequent encounter * FL JAQUELIN SURGERY(Performed 10/11/2021) Performed for Closed fracture of left tibia and fibula with routine healing, subsequent encounter * ENDOTRACHEAL TUBE NOTE(Performed 10/11/2021) * CLOSED REDUCTION EXTERNAL FIXATION LOWER EXTREMITY(Performed 10/11/2021) Performed for Closed fracture of left tibial plateau, initial encounter * BASIC METABOLIC PANEL (CALCIUM TOTAL)(Performed 10/11/2021) * CBC W/O DIFFERENTIAL(Performed 10/11/2021) * CT KNEE LEFT WO CONTRAST(Performed 10/10/2021) Performed for Fall from ladder, initial encounter * SARS-COV-2 (COVID-19)+INFLU A+B PCR RAPID(Performed 10/10/2021) * XR STRESS ANY JOINT(Performed 10/10/2021) Performed for Fall from ladder, initial encounter * XR FEMUR LEFT 2VW(Performed 10/10/2021) Performed for Fall from ladder, initial encounter * XR PELVIS 1 OR 2VW(Performed 10/10/2021) Performed for Fall from ladder, initial encounter * BLOOD TYPE VERIFICATION(Performed 10/10/2021) * XR KNEE LEFT 3VW(Performed 10/10/2021) Performed for Fall from ladder, initial encounter * XR HIP LEFT 2VW OR MORE(Performed 10/10/2021) Performed for Fall from ladder, initial encounter * XR ANKLE LEFT 3VW OR MORE(Performed 10/10/2021) Performed for Fall from ladder, initial encounter * XR TIBIA FIBULA LEFT 2VW(Performed 10/10/2021) Performed for Fall from ladder, initial encounter * PT-INR [facility](Performed 10/10/2021) * TYPE + SCREEN PANEL(Performed 10/10/2021) * COMPREHENSIVE METABOLIC PANEL(Performed 10/10/2021) * CBC W AUTO DIFFERENTIAL(Performed 10/10/2021) * DERMATOPATHOLOGY(Performed 12/18/2020) * CULTURE MRSA(Performed 09/25/2014) * DERMATOPATHOLOGY(Performed 10/12/2012) Results * DERMATOPATHOLOGY (02/23/2024 12:00 AM CDT) Only the most recent of3 resultswithin the time period is included. Case Report Dermatopathology Report ? Case: [id number] ? Authorizing Provider: ??Israel Lang MD ?Collected: ? 02/23/2024 12:00 AM ? Ordering Location: ? [facility] - ??Received: ?02/25/2024 06:55 AM ? DermPath Lab ? Pathologist: ? Maraynne Olmos MD ? Specimens: ?? A) - Skin, right paranasal cheek ? B) - Skin, right cheek ? C) - Skin, right parietal scalp ? 1:41 PM [facility] DERMATOPATHOLOGY [facility]ORATORY Final Diagnosis Specimen A. 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 SKIN, right parietal scalp: NEUROFIBROMA (D36.10) 1:41 PM [facility] DERMATOPATHOLOGY [facility]ORATORY Clinical History A: R/O BCC vs other B: R/O BCC vs other C: R/O BCC 1:41 PM [facility] DERMATOPATHOLOGY [facility]ORATORY Gross Description Specimen A: Received is one formalin filled container labeled with the patient's name and designated right paranasal cheek. The specimen consists of a shave biopsy measuring 6x4x1 mm. Jar 0. Specimen B: Received is one formalin filled container labeled with the patient's name and designated right cheek. The specimen consists of a shave biopsy measuring 6x5x1 mm. Jar 0. Specimen C: Received is one formalin filled container labeled with the patient's name and designated right parietal scalp. The specimen consists of a five pieces in aggregate shave biopsy measuring 60c79p8 mm. Jar 0. 1:41 PM [facility] DERMATOPATHOLOGY [facility]OR[facility] Microscopic Description Specimen A. SKIN, right paranasal cheek: There are prominent sebaceous gland lobules surrounding a dilated hair follicle. Specimen B. SKIN, right cheek: There are prominent sebaceous gland lobules surrounding a dilated hair follicle. Specimen C. SKIN, right parietal scalp: Sections show a proliferation of spindled and S-shaped cells within the dermis. The stromal collagen is delicate and pale. 1:41 PM [facility] DERMATOPATH[facility]Y [facility]OR[facility] Disclaimer An external and internal positive and negative controls are appropriate for the histochemical, immunohistochemical and immunofluorescence stain(s) in this case (if any), except where stated explicitly. The performance characteristics of the stain(s) cited in this report were developed and its performance characteristic determined by the Dermatopathology Laboratory at [facility], directed by Dr. Yessi Jackman. These tests need not be, and therefore are not, approved by the [place] Food and Drug Administration. The tests are used for clinical purposes. Billing Codes Specimen Charges Stain Charges 34447 [id number] 1 1 1 4 1:41 PM CDT DERMATOPATHOLOGY LABORATORY Embedded Images 4 1:41 PM CDT DERMATOPATHOLOGY LABORATORY Pathology/Cytology TISSUE SPECIMEN FROM SKIN / Unknown 02/23/2024 02/25/2024 6:55 AM CDT Miscellaneous samples (specimen) TISSUE SPECIMEN FROM SKIN / Unknown 02/23/2024 02/25/2024 6:55 AM CDT Miscellaneous samples (specimen) TISSUE SPECIMEN FROM SKIN / Unknown 02/23/2024 02/25/2024 6:55 AM CDT Israel Lang MD LAB - PATHOLOGY/CYTO LOGY ORDERABLES DERMATOPATHOLOGY LABORATORY [facility] - Department of Dermatology [address], [address] Floor [address] [phone] * XR KNEE LEFT 3VW (07/08/2022 9:02 AM CDT) Only the most recent of9 resultswithin the time period is included. Anatomical Region Laterality Modality Lower Extremity Radiographic Courtney ging 07/08/2022 9:33 AM CDT Impressions 07/08/2022 9:41 AM CDT IMPRESSION: Unchanged fracture alignment. > Dictated by Ramonita Hernandez M.D. (resident services manager). I, Tramaine Ceron MD have personally reviewed and interpreted this examination/study. > Interpreting Provider: Tramaine Ceron MD on 07/08/2022 9:41 AM Narrative 07/08/2022 9:41 AM CDT PROCEDURE: ??XR KNEE LEFT 3VW, DATE/TIME OF EXAM: ??07/08/2022 9:02 AM, LOCATION ??[facility] INDICATION: S82.142D: Closed fracture of left tibial plateau with routine healing, subsequent encounter ADDITIONAL CLINICAL INFORMATION: Ordering Provider Reason For Exam: ??fracture COMPARISON: Left knee radiograph dated 05/06/2022 FINDINGS: Redemonstration of open reduction and internal fixation of a tibial plateau fracture with plate and screws. Hardware is intact. Osseous alignment is unchanged. Proximal fibular fracture is unchanged in alignment. Callus is visible. Small joint effusion. Mild soft tissue swelling. Procedure Note Tramaine Ceron MD - 07/08/2022 PROCEDURE: XR KNEE LEFT 3VW, DATE/TIME OF EXAM: 07/08/2022 9:02 AM, LOCATION [facility] INDICATION: S82.142D: Closed fracture of left tibial plateau with routine healing, subsequent encounter ADDITIONAL CLINICAL INFORMATION: Ordering Provider Reason For Exam: fracture COMPARISON: Left knee radiograph dated 05/06/2022 FINDINGS: Redemonstration of open reduction and internal fixation of a tibialplateau fracture with plate and screws. Hardware is intact. Osseous alignment is unchanged. Proximal fibular fracture is unchanged in alignment. Callusis visible. Small joint effusion. Mild soft tissue swelling. IMPRESSION: Unchanged fracture alignment. > Dictated by Ramonita Hernandez M.D. (resident services manager). I, Tramaine Ceron MD have personally reviewed and interpreted this examination/study. > Interpreting Provider: Tramaine Ceron MD on 07/08/2022 9:41 AM Jovon Maloney DO DIAGNOSTIC IMAGING O RDERABLES * (ABNORMAL) CBC W/O DIFFERENTIAL (10/26/2021 2:31 AM [employer]) Only the most recent of6 resultswithin the time period is included. WBC 12.2(H) 3.5 - 10.5 10? 3 /uL 10/26/2021 3:15 AM [employer] [facility] RBC 2.39(L) 3.80 - 5.20 10? 6 /uL 10/26/2021 3:15 AM [employer] [facility] Hemoglobin 7.0(L) 12.0 - 15.6 g/dL 10/26/2021 3:15 AM [employer] [facility] Hematocrit 21.7(L) 35.0 - 45.0 % 10/26/2021 3:15 AM [facility] MCV 90.8 80.7 - 98.3 fL 10/26/2021 3:15 AM [facility] MCH 29.3 26.7 - 34.0 pg 10/26/2021 3:15 AM [facility] MCHC 32.3 30.8 - 35.9 g/dL 10/26/2021 3:15 AM [facility] Platelet Count 508(H) 150 - 400 10? 3 /uL 10/26/2021 3:15 AM [facility] RDW-SD 45.7 36.0 - 50.0 fL 10/26/2021 3:15 AM [facility] RDW-CV 14.1 11.2 - 14.8 % 10/26/2021 3:15 AM [facility] MPV 8.9(L) 9.4 - 12.9 fL 10/26/2021 3:15 AM [facility] nRBC Absolute 0.00 0 10? 3 /uL 10/26/2021 3:15 AM [facility] nRBC Auto 0.0 0 /100 WBC 10/26/2021 3:15 AM [facility] Blood BLOOD SPECIMEN / Unknown Lab Venipuncture / Unknown 10/26/2021 2:31 AM [employer] 10/26/2021 3:01 AM [facility] Jovon Maloney DO LAB - HEMATOLOGY ORD ERABLES Performing Organization Address City/State/[facility] Co de Phone Number [facility] [address] [place] [phone], [facility] [phone] * (ABNORMAL) BASIC METABOLIC PANEL (CALCIUM TOTAL) (10/26/2021 2:31 AM [employer]) Only the most recent of6 resultswithin the time period is included. BUN 14 7 - 26 mg/dL 10/26/2021 3:29 AM [facility] Creatinine 0.95 0.56 - 0.96 mg/dL 10/26/2021 3:29 AM [facility] Sodium 134(L) 136 - 145 mmol/L 10/26/2021 3:29 AM [facility] Potassium 4.2 3.5 - 4.5 mmol/L 10/26/2021 3:29 AM [facility] Chloride 102 98 - 107 mmol/L 10/26/2021 3:29 AM [facility] CO2 25 22 - 29 mmol/L 10/26/2021 3:29 AM [facility] Glucose 106 70 - 115 mg/dL 10/26/2021 3:29 AM [facility] Calcium 8.9 8.4 - 10.2 mg/dL 10/26/2021 3:29 AM [facility] Anion Gap 11 8 - 18 10/26/2021 3:29 AM [facility] BUN/Creatinine Ratio 15 7 - 23 10/26/2021 3:29 AM [facility] Osmolality Calculated 279 270 - 300 mOsm/kg 10/26/2021 3:29 AM [facility] eGFR by CKD-EPI 63(L) >=90 mL/min/1.7 3 m2 10/26/2021 3:29 AM [facility] Blood BLOOD SPECIMEN / Unknown Lab Venipuncture / Unknown 10/26/2021 2:31 AM [employer] 10/26/2021 3:01 AM [employer] Jovon Maloney DO LAB - CHEMISTRY JOCELYNN GARCIA [facility] Organization Address City/State/ZIP Co de Phone Number [facility] [address] [place] [address], [facility] [phone] * XR KNEE LEFT 2VW OR LESS (10/25/2021 12:05 PM [employer]) Only the most recent of2 resultswithin the time period is included. Anatomical Region Laterality Modality Lower Extremity Radiographic Courtney ging 10/25/2021 12:5 9 PM [employer] Impressions 10/25/2021 1:00 PM [employer] IMPRESSION: Internally fixated tibial plateau fracture. This report was electronically signed by TRAMAINE CERON MD ??on 10/25/2021 1:00 PM . Narrative 10/25/2021 1:00 PM [employer] Exam: ??XR KNEE LEFT 2VW History: ??S82.142A: Closed fracture of left tibial plateau, initial encounter Comparison: 10/22/2021 Findings: Interval open reduction and internal fixation of a tibial plateau fracture with plates and screws. The hardware is intact. Mildly displaced fibular head fracture. A drain, soft tissue swelling, and intra-articular gas are noted. Procedure Note Tramaine Ceron MD - 10/25/2021 Exam: XR KNEE LEFT 2VW History: S82.142A: Closed fracture of left tibial plateau, initial encounter Comparison: 10/22/2021 Findings: Interval open reduction and internal fixation of a tibial plateaufracture with plates and screws. The hardware is intact. Mildly displaced fibular head fracture. A drain, soft tissue swelling, and intra-articular gasare noted. IMPRESSION: Internally fixated tibial plateau fracture. This report was electronically signed by TRAMAINE CERON MD on 10/25/2021 1:00 PM . Jovon Maloney DO DIAGNOSTIC IMAGING O RDERABLES * FL JAQUELIN SURGERY (10/25/2021 11:36 AM [employer]) Only the most recent of2 resultswithin the time period is included. Narrative [facility] - 10/25/2021 11:37 AM [employer] Fluoroscopy was used for this exam in the OR. Please see the Operative report. Jovon Maloney DO FLUOROSCOPY ORDERABL ES [facility] * ETT LINE PERFORMABLE (10/25/2021 8:26 AM [employer]) Narrative Veto Guzman DO - 10/25/2021 8:26 AM [employer] Veto Guzman DO ? 10/25/2021 ??8:28 AM Endotracheal Tube Placement: ? Patient Location: OR. Procedure: intubation (15251). Procedure Section: ?? Sedation: under general anesthesia. Indications for Airway Management: ??anesthesia Induction: standard IV Patient Position: ??sniffing and supine Mask Ventilation: easy. Blade Type: Video Blade Size: 3 Laryngoscopy View: grade 1 (full cords) Intubation Adjuncts: stylet and video laryngoscope Tube: endotracheal tube Placement: oral Tube type: cuff - inflated Tube Size (MM): 7 Depth of Insertion (CM): 21 Measured From: lips Cuff Inflated With: air Number of Attempts: 1. Placement Verified By: direct visualization, bilateral breath sounds, chest auscultation, CO2 monitor and CO2 detector Tube secured with: ??adhesive tape. Dentition unchanged? ??Yes Difficult Airway? ??No. Staff Section ? Anesthesia Provider: Shubham Sarmiento MD ? Provider #1: Veto Guzman, DO, Performed the procedure. ? Provider #2: Concepción Kaufman DO. Additional Comments: Shilpi Neal 3. Shubham Sarmiento MD GENERAL ANESTHESIA O RDERABLES * TYPE + SCREEN PANEL (10/25/2021 6:42 AM [employer]) Only the most recent of2 resultswithin the time period is included. Chan [facility] Antibody Screen NEG 7:30 AM MODEL AND [employer]ER [facility] B[facility]OD [facility] LAB ABO Rh O POS 10/25/2021 7:30 AM MO[employer] AND [employer] [facility] Blood Bank BLOOD SPECIMEN / Unknown Venipuncture / Unknown 10/25/2021 6:42 AM [employer] 10/25/2021 6:51 AM [employer]DEL AND [employer]KER Jovon Maloney DO LAB - BLOOD BANK ORD ERABLES [facility] [address] [place] [address], [facility] [phone] * SARS-COV-2 (COVID-19) INTERNAL (10/12/2021 3:49 PM MODEL AND [employer]OLD MAKER) [facility] COVID-19 PCR Not detected Not detected 10/13/2021 6:11 AM MODEL AND [employer]KER [facility] MICROBIOLOGY Microbiology SPECIMEN FROM NASOPHARYNGEAL STRUCTURE / Unknown Collection / Unknown 10/12/2021 3:49 PM [employer]ER 10/12/2021 4:54 PM MODEL AND [employer]KER Narrative [facility] MICROBIOLOGY - 10/13/2021 6:11 AM MODEL AND [employer]KER This nucleic acid amplification assay performance was validated by [facility]. This test has been authorized by the Food and Drug administration (FDA)under an Emergency??Use Authorization (EUA). This test has been validated in accordance with the FDA's guidance document Policy for Diagnostic Testing in Laboratories Certified to perform High Complexity Testing under CLIA prior to Emergency Use Authorization for Coronavirus Disease-2019 during the Public Health Emergency issued on January 07, 2020. FDA independent review of this validation is pending. This test is only authorized for the duration of time the declaration that circumstances exist justifying the authorization of emergency use of in vitro diagnostic tests for detection of SARS-CoV-2 virus and/or diagnosis of COVID-19 infection under section 564(b)(1) of the Act, 21 U.S.C 360bbb-3 (b)(1), unless the authorization is terminated or revoked sooner. Fact Sheets for this EUA assay are available upon request. Jovon Maloney DO LAB - MICROBIOLOGY O RDERABLES [facility] MICRO[facility]OLOG[facility] [address] [place] [address], [facility] [phone] * ETT LINE PERFORMABLE (10/11/2021 11:52 AM MODEL AND [employer]KER) Narrative Sloan Salcedo Anes Asst - 10/11/2021 11:52 AM MODEL AND [employer]ER Sloan Salcedo Anes Asst ? 10/11/2021 11:53 AM Endotracheal Tube Placement: ? Patient Location: OR. Intubation Event Date/Time: ??10/11/2021 10:59 AM Procedure: intubation (10374). Procedure Section: ?? Sedation: under general anesthesia. Indications for Airway Management: ??anesthesia Induction: standard IV Patient Position: ??sniffing and supine Mask Ventilation: easy. Blade Type: Barlow Blade Size: 2 Laryngoscopy View: grade 1 (full cords) Intubation Adjuncts: stylet Nasal Airway Size: 7 Tube: endotracheal tube Placement: oral Tube type: cuff - inflated Tube Size (MM): 7 Measured From: gums Cuff volume (mL): ??5 Cuff Inflated With: air Number of Attempts: 1. Placement Verified By: direct visualization, bilateral breath sounds, chest auscultation and CO2 detector CXR Findings: ETT in proper place. Tube secured with: ??adhesive tape and ETT foote. Dentition unchanged? ??Yes Difficult Airway? ??No. Procedure Start Time: 10/11/2021 10:59 AM. Staff Section ? Anesthesia Provider: Sloan Salcedo Anes Asst, Performed the procedure Frank Whitfield MD GENERAL ANESTHESIA O RDERABLES * CT KNEE LEFT WO CONTRAST (10/10/2021 9:26 PM [employer]DEL [employer]KER) Anatomical Region Laterality Modality Lower Extremity Computed Tomogra phy 10/10/2021 9:33 PM [employer]DEL AND [employer]KER Impressions 10/11/2021 9:05 AM MODEL AND [employer]KER Impression: 1.Comminuted moderately displaced tibial plateau fracture involving the medial and lateral plateau articular surfaces. 2.Comminuted mildly displaced fibular head fracture. Report drafted by Oni Rowe (resident) IDr. TRAMAINE MD have personally reviewed and interpreted this examination/study. This report was electronically signed by TRAMAINE CERON MD ??on 10/11/2021 9:05 AM . Narrative 10/11/2021 9:05 AM [employer] Procedure Information DATE: 10/10/2021 9:28 PM EXAMINATION: Computed tomography (CT) of the left knee without contrast TECHNIQUE: CT of the left knee was performed without contrast according to standard protocol. Multiplanar reconstructions were produced. Clinical Information HISTORY: W11.XXXA: Fall from ladder, initial encounter COMPARISON: Left knee radiograph dated 10/10/2021 Findings There is a comminuted moderately displaced fracture of the tibial plateau. Several fracture lines extend to the medial and lateral plateau articular surfaces and to the tibial intercondylar eminence. There is metaphyseal-diaphyseal dissociation. At the lateral plateau there is depression of up to 4 mm (series 5 image 47) increased fracture gap measuring up to 7 mm (series 6 image 28). At the medial plateau there is articular surface, measuring up to 3 mm. There is a comminuted mildly displaced fracture of the fibular head. There is an effusion with lipohemarthrosis. There is surrounding soft tissue edema and hemorrhage. Procedure Note Tramaine Ceron MD - 10/11/2021 Procedure Information DATE: 10/10/2021 9:28 PM EXAMINATION: Computed tomography (CT) of the left knee without contrast TECHNIQUE: CT of the left knee was performed without contrast according to standard protocol. Multiplanar reconstructions were produced. Clinical Information HISTORY: W11.XXXA: Fall from ladder, initial encounter COMPARISON: Left knee radiograph dated 10/10/2021 Findings There is a comminuted moderately displaced fracture of the tibialplateau. Several fracture lines extend to the medial and lateral plateauarticular surfaces and to the tibial intercondylar eminence. There is metaphyseal-diaphyseal dissociation. At the lateral plateau there is depression of up to 4 mm (series 5 image 47) increased fracture gap measuring up to 7 mm (series 6 image 28). At the medial plateau there is articular surface, measuring up to 3 mm. There is a comminuted mildly displaced fracture of the fibular head. There is an effusion with lipohemarthrosis. There is surrounding soft tissue edema and hemorrhage. Impression: 1.Comminuted moderately displaced tibial plateau fracture involving the medial and lateral plateau articular surfaces. 2.Comminuted mildly displaced fibular head fracture. Report drafted by Oni Rowe (resident) IDr. TRAMAINE MD have personally reviewed and interpreted this examination/study. This report was electronically signed by TRAMAINE CERON MD on10/11/2021 9:05 AM . Lilliam Aguirre MD CT ORDERABLES * SARS-COV-2 (COVID-19)+INFLU A+B PCR RAPID (10/10/2021 8:35 PM MODEL AND [employer]) COVID-19 PCR Not detected Not detected 10/10/20 9:01 PM [facility] Influenza A Rapid GABRIELA Not Detected Not Detected 10/10/2021 9:01 PM MODEL AND M[employer]KER [facility] Influenza B GABRIELA Rapid Not Detected Not Detected 10/10/2021 9:01 PM [facility] Microbiology SPECIMEN FROM NASOPHARYNGEAL STRUCTURE / Unknown Collection / Unknown 10/10/2021 8:35 PM [employer]ER 10/10/2021 8:39 PM MODEL AND [employer]KER Narrative [facility] - 10/10/2021 9:01 PM MODEL AND [employer]KER Influenza assay performed by [employer]. Results do not exclude the possibility of a mixed viral infection. NOTE: ??Detecting and identifying specific viral nucleic acids from individuals exhibiting signs and symptoms of respiratory infection aids in the diagnosis of respiratory infection, if used in conjunction with other clinical and laboratory findings. The results of this test should not be used as the sole basis for diagnosis, treatment, or patient management decisions. This nucleic acid amplification assay performance was validated by [facility]. This test has been authorized by the Food and Drug administration (FDA)under an Emergency??Use Authorization (EUA). This test has been validated in accordance with the FDA's guidance document Policy for Diagnostic Testing in Laboratories Certified to perform High Complexity Testing under CLIA prior to Emergency Use Authorization for Coronavirus Disease-2019 during the Public Health Emergency issued on January 07, 2020. FDA independent review of this validation is pending. This test is only authorized for the duration of time the declaration that circumstances exist justifying the authorization of emergency use of in vitro diagnostic tests for detection of SARS-CoV-2 virus and/or diagnosis of COVID-19 infection under section 564(b)(1) of the Act, 21 U.S.C 360bbb-3 (b)(1), unless the authorization is terminated or revoked sooner. Fact Sheets for this EUA assay are available upon request. Jovon Maloney DO LAB - MICROBIOLOGY O [facility] [address] [address], [facility] [phone] * XR STRESS ANY JOINT (10/10/2021 8:31 PM MODEL AND [employer]) Anatomical Region Laterality Modality Lower Extremity, Upper Extremity Radiographic Imaging 10/11/2021 10:1 6 AM [employer]DEL AND [employer] Impressions 10/11/2021 10:19 AM MODEL AND [employer] IMPRESSION: No change in alignment of the osseous structures of the ankle status post stress. Report dictated by Ramon Burns DO (resident services manager) IDr. KIMI MD, [facility] have personally reviewed and interpreted this examination/study. This report was electronically signed by KIMI TELLO MD, FRCR ??on 10/11/2021 10:19 AM . Narrative 10/11/2021 10:19 AM MODEL AND [employer] EXAMINATION: XR STRESS ANY JOINT HISTORY: W11.XXXA: Fall from ladder, initial encounter COMPARISON: Left ankle radiographs same day at 6:48 PM FINDINGS: The osseous structures are intact and well aligned without acute fracture or dislocation. No change in osseous alignment status post stress. The ankle mortise is intact. Diffuse mild soft tissue swelling is present. Procedure Note Kimi Tello MD - 10/11/2021 EXAMINATION: XR STRESS ANY JOINT HISTORY: W11.XXXA: Fall from ladder, initial encounter COMPARISON: Left ankle radiographs same day at 6:48 PM FINDINGS: The osseous structures are intact and well aligned without acutefracture or dislocation. No change in osseous alignment status post stress. The ankle mortise is intact. Diffuse mild soft tissue swelling is present. IMPRESSION: No change in alignment of the osseous structures of the ankle statuspost stress. Report dictated by Ramon Bunrs DO (resident services manager) Dr. KIMI Mosley MD, FRROSALBA have personally reviewedand interpreted this examination/study. This report was electronically signed by KIMI TELLO MD, FRCR on 10/11/2021 10:19 AM . Lilliam Aguirre MD DIAGNOSTIC IMAGING O RDERABLES * XR FEMUR LEFT 2VW (10/10/2021 8:31 PM MODEL AND [employer]KER) Anatomical Region Laterality Modality Lower Extremity Radiographic Courtney ging 10/11/2021 10:1 0 AM MODEL AND [employer] Impressions 10/11/2021 10:26 AM MODEL AND [employer]KER IMPRESSION: 1.No acute osseous abnormality of the femur. 2.Redemonstrated lateral tibial condyle are fracture and proximal fibular fracture with large joint effusion. Report dictated by Ramon Burns DO (resident services manager). Dr. KIMI Mosley MD, FRROSALBA have personally reviewed and interpreted this examination/study. This report was electronically signed by KIMI TELLO MD, FRCR ??on 10/11/2021 10:26 AM . Narrative 10/11/2021 10:26 AM MODEL AND [employer]KER EXAMINATION: XR FEMUR LEFT 2VW HISTORY: W11.XXXA: Fall from ladder, initial encounter COMPARISON: Radiograph of the left knee on same date at 6:45 PM. FINDINGS: Redemonstrated depressed lateral tibial plateau fracture and proximal fibular fracture. The femur demonstrates no acute osseous abnormality. A large knee joint effusion is present. Procedure Note Kimi Tello MD - 10/11/2021 EXAMINATION: XR FEMUR LEFT 2VW HISTORY: W11.XXXA: Fall from ladder, initial encounter COMPARISON: Radiograph of the left knee on same date at 6:45 PM. FINDINGS: Redemonstrated depressed lateral tibial plateau fracture and proximal fibular fracture. The femur demonstrates no acute osseous abnormality. A large knee joint effusion is present. IMPRESSION: 1.No acute osseous abnormality of the femur. 2.Redemonstrated lateral tibial condyle are fracture and proximalfibular fracture with large joint effusion. Report dictated by Ramon Burns DO (resident services manager). Dr. KIMI Mosley MD, FRROSALBA have personally reviewedand interpreted this examination/study. This report was electronically signed by KIMI TELLO MD, YUSEF on 10/11/2021 10:26 AM . Lilliam Aguirre MD DIAGNOSTIC IMAGING O RDERABLES * XR PELVIS 1 OR 2VW (10/10/2021 7:59 PM MODEL AND [employer] MAKER) Anatomical Region Laterality Modality Pelvis Radiographic Courtney ging 10/11/2021 10:0 4 AM MODEL AND [employer] MAKER Impressions 10/11/2021 10:52 AM MODEL AND [employer]KER IMPRESSION: No acute fracture identified. Report dictated by Ramon Burns DO (resident services manager). Dr. KIMI Mosley MD, FRROSALBA have personally reviewed and interpreted this examination/study. This report was electronically signed by KIMI TELLO MD, FRCR ??on 10/11/2021 10:52 AM . Narrative 10/11/2021 10:52 AM MODEL AND [employer]KER EXAMINATION: XR PELVIS 1 OR 2VW HISTORY: W11.XXXA: Fall from ladder, initial encounter COMPARISON: Radiograph of the left hip dated 10-29 at 6:43 PM FINDINGS: Instrumented posterior spinal fusion of L4-L5. No acute fracture is identified. The femoral heads appear well-seated within their respective acetabula. The pubic symphysis is intact. Degenerative changes at the bilateral sacroiliac joints. Procedure Note Kimi Tello MD - 10/11/2021 EXAMINATION: XR PELVIS 1 OR 2VW HISTORY: W11.XXXA: Fall from ladder, initial encounter COMPARISON: Radiograph of the left hip dated 10-29 at 6:43 PM FINDINGS: Instrumented posterior spinal fusion of L4-L5. No acute fracture is identified. The femoral heads appear well-seated within their respective acetabula. The pubic symphysis is intact. Degenerative changes at the bilateral sacroiliac joints. IMPRESSION: No acute fracture identified. Report dictated by Ramon Burns DO (resident services manager). I, Dr. KIMI TELLO MD, FRCR have personally reviewedand interpreted this examination/study. This report was electronically signed by KIMI TELLO MD, FRCR on 10/11/2021 10:52 AM . Lilliam Aguirre MD DIAGNOSTIC IMAGING O RDERABLES * BLOOD TYPE VERIFICATION (10/10/2021 7:08 PM MODEL AND M[employer] MAKER) ABO Rh O POS 10/10/2021 8:0 2 PM MODEL AND MOLD MAKER [facility] B[facility]OD [facility] LAB Blood Bank BLOOD SPECIMEN / Unknown Lab Venipuncture / Unknown 10/10/2021 7:08 PM MODEL AND [employer]KER 10/10/2021 7:11 PM MODEL AND MOLD MAKER Lilliam Aguirre MD LAB - BLOOD BANK ORD ERABLES [facility]OD [facility] LAB [address] [place] [address], [facility] [phone] * XR HIP 2+ VW LEFT (10/10/2021 6:55 PM MODEL AND M[employer] MAKER) Anatomical Region Laterality Modality Pelvis, Lower Extremity Radiogra [facility] 10/10/2021 7:17 PM MODEL AND [employer] MAKER Impressions 10/11/2021 8:48 AM MODEL AND [employer] MAKER IMPRESSION: 1.Fracture of the tibial condyles with involvement of the lateral tibial plateau and in the condylar eminence. There is depression of the lateral tibial plateau (approximately 9 mm). 2.Widening of lateral aspect of ankle joint is noted without definite fractures. Dictated by Andre Aguilar DO (resident services manager). I, Dr. KIMI TELLO MD, FR have personally reviewed and interpreted this examination/study. This report was electronically signed by KIMI TELLO MD, FRCR ??on 10/11/2021 8:48 AM . Narrative 10/11/2021 8:48 AM MODEL AND [employer] MAKER EXAMINATION: XR ANKLE LEFT 3VW OR MORE, XR KNEE LEFT 3VW, XR HIP LEFT 2VW OR MORE, XR TIBIA FIBULA LEFT 2VW HISTORY: W11.XXXA: Fall from ladder, initial encounter COMPARISON: None. FINDINGS: Left hip: The osseous structures are intact and well aligned without acute fracture or dislocation. The hip joint space is preserved. Bone density and texture are normal. L4-L5 posterior spinal fusion hardware noted. Left knee: Depressed, comminuted lateral tibial plateau fracture with moderate anterior displacement of the tibial tuberosity. Mildly displaced fracture of the tibial spine may suggest ACL avulsion injury. Corticated osseous fragment posterior to the femoral condyles could be a sesamoid bone. Comminuted fractures of the fibular head. Large suprapatellar joint effusion. Left tibia/fibula: Tibial plateau and fibular head fractures as above. No additional fractures in the tibia or fibula. Bone density and texture are normal. Left ankle: There is widening of the joint space is noted along the lateral aspect of the ankle. No acute fractures are identified. Bone density and texture are normal. No soft tissue swelling is present. Procedure Note Kimi Tello MD - 10/11/2021 EXAMINATION: XR ANKLE LEFT 3VW OR MORE, XR KNEE LEFT 3VW, XR HIP [id number] OR MORE, XR TIBIA FIBULA LEFT 2VW HISTORY: W11.XXXA: Fall from ladder, initial encounter COMPARISON: None. FINDINGS: Left hip: The osseous structures are intact and well aligned without acutefracture or dislocation. The hip joint space is preserved. Bone density andtexture are normal. L4-L5 posterior spinal fusion hardware noted. Left knee: Depressed, comminuted lateral tibial plateau fracture with moderate anterior displacement of the tibial tuberosity. Mildly displacedfracture of the tibial spine may suggest ACL avulsion injury. Corticated osseous fragment posterior to the femoral condyles could be a sesamoid bone. Comminuted fractures of the fibular head. Large suprapatellar joint effusion. Left tibia/fibula: Tibial plateau and fibular head fractures as above. No additional fractures in the tibia or fibula. Bone density and texture are normal. Left ankle: There is widening of the joint space is noted along the lateral aspectof the ankle. No acute fractures are identified. Bone density and textureare normal. No soft tissue swelling is present. IMPRESSION: 1.Fracture of the tibial condyles with involvement of the lateral tibial plateau and in the condylar eminence. There is depression of the lateral tibial plateau (approximately 9 mm). 2.Widening of lateral aspect of ankle joint is noted without definite fractures. Dictated by Andre Aguilar DO (resident services manager). I, Dr. KIMI TELLO MD, FRCR have personally reviewedand interpreted this examination/study. This report was electronically signed by KIMI TELLO MD, FRCR on 10/11/2021 8:48 AM . Lilliam Aguirre MD DIAGNOSTIC IMAGING O RDERABLES * XR ANKLE 3+ VW LEFT (10/10/2021 6:55 PM MODEL AND M[employer] MAKER) Anatomical Region Laterality Modality Lower Extremity Radiographic Courtney ging 10/10/2021 7:17 PM MODEL AND M[employer] MAKER Impressions 10/11/2021 8:48 AM MODEL AND M[employer] MAKER IMPRESSION: 1.Fracture of the tibial condyles with involvement of the lateral tibial plateau and in the condylar eminence. There is depression of the lateral tibial plateau (approximately 9 mm). 2.Widening of lateral aspect of ankle joint is noted without definite fractures. Dictated by Andre Aguilar DO (resident services manager). I, Dr. KIMI TELLO MD, [facility] have personally reviewed and interpreted this examination/study. This report was electronically signed by KIMI TELLO MD, ROSALBA ??on 10/11/2021 8:48 AM . Narrative 10/11/2021 8:48 AM MODEL AND M[employer] MAKER EXAMINATION: XR ANKLE LEFT 3VW OR MORE, XR KNEE LEFT 3VW, XR HIP LEFT 2VW OR MORE, XR TIBIA FIBULA LEFT 2VW HISTORY: W11.XXXA: Fall from ladder, initial encounter COMPARISON: None. FINDINGS: Left hip: The osseous structures are intact and well aligned without acute fracture or dislocation. The hip joint space is preserved. Bone density and texture are normal. L4-L5 posterior spinal fusion hardware noted. Left knee: Depressed, comminuted lateral tibial plateau fracture with moderate anterior displacement of the tibial tuberosity. Mildly displaced fracture of the tibial spine may suggest ACL avulsion injury. Corticated osseous fragment posterior to the femoral condyles could be a sesamoid bone. Comminuted fractures of the fibular head. Large suprapatellar joint effusion. Left tibia/fibula: Tibial plateau and fibular head fractures as above. No additional fractures in the tibia or fibula. Bone density and texture are normal. Left ankle: There is widening of the joint space is noted along the lateral aspect of the ankle. No acute fractures are identified. Bone density and texture are normal. No soft tissue swelling is present. Procedure Note Kimi Tello MD - 10/11/2021 EXAMINATION: XR ANKLE LEFT 3VW OR MORE, XR KNEE LEFT 3VW, XR HIP [id number] OR MORE, XR TIBIA FIBULA LEFT 2VW HISTORY: W11.XXXA: Fall from ladder, initial encounter COMPARISON: None. FINDINGS: Left hip: The osseous structures are intact and well aligned without acutefracture or dislocation. The hip joint space is preserved. Bone density andtexture are normal. L4-L5 posterior spinal fusion hardware noted. Left knee: Depressed, comminuted lateral tibial plateau fracture with moderate anterior displacement of the tibial tuberosity. Mildly displacedfracture of the tibial spine may suggest ACL avulsion injury. Corticated osseous fragment posterior to the femoral condyles could be a sesamoid bone. Comminuted fractures of the fibular head. Large suprapatellar joint effusion. Left tibia/fibula: Tibial plateau and fibular head fractures as above. No additional fractures in the tibia or fibula. Bone density and texture are normal. Left ankle: There is widening of the joint space is noted along the lateral aspectof the ankle. No acute fractures are identified. Bone density and textureare normal. No soft tissue swelling is present. IMPRESSION: 1.Fracture of the tibial condyles with involvement of the lateral tibial plateau and in the condylar eminence. There is depression of the lateral tibial plateau (approximately 9 mm). 2.Widening of lateral aspect of ankle joint is noted without definite fractures. Dictated by Andre Aguilar DO (resident services manager). Dr. KIMI Mosley MD, FRROSALBA have personally reviewedand interpreted this examination/study. This report was electronically signed by KIMI TELLO MD, FRCR on 10/11/2021 8:48 AM . Lilliam Aguirre MD DIAGNOSTIC IMAGING O RDERABLES * XR TIBIA FIBULA LEFT 2VW (10/10/2021 6:54 PM MODEL AND M[employer] MAKER) Anatomical Region Laterality Modality Lower Extremity Radiographic Courtney ging 10/10/2021 7:17 PM MODEL AND [employer] MAKER Impressions 10/11/2021 8:48 AM MODEL AND M[employer] MAKER IMPRESSION: 1.Fracture of the tibial condyles with involvement of the lateral tibial plateau and in the condylar eminence. There is depression of the lateral tibial plateau (approximately 9 mm). 2.Widening of lateral aspect of ankle joint is noted without definite fractures. Dictated by Andre Aguilar DO (resident services manager). Dr. KIMI Mosley MD, FRROSALBA have personally reviewed and interpreted this examination/study. This report was electronically signed by KIMI TELLO MD, FRCR ??on 10/11/2021 8:48 AM . Narrative 10/11/2021 8:48 AM MODEL AND [employer] MAKER EXAMINATION: XR ANKLE LEFT 3VW OR MORE, XR KNEE LEFT 3VW, XR HIP LEFT 2VW OR MORE, XR TIBIA FIBULA LEFT 2VW HISTORY: W11.XXXA: Fall from ladder, initial encounter COMPARISON: None. FINDINGS: Left hip: The osseous structures are intact and well aligned without acute fracture or dislocation. The hip joint space is preserved. Bone density and texture are normal. L4-L5 posterior spinal fusion hardware noted. Left knee: Depressed, comminuted lateral tibial plateau fracture with moderate anterior displacement of the tibial tuberosity. Mildly displaced fracture of the tibial spine may suggest ACL avulsion injury. Corticated osseous fragment posterior to the femoral condyles could be a sesamoid bone. Comminuted fractures of the fibular head. Large suprapatellar joint effusion. Left tibia/fibula: Tibial plateau and fibular head fractures as above. No additional fractures in the tibia or fibula. Bone density and texture are normal. Left ankle: There is widening of the joint space is noted along the lateral aspect of the ankle. No acute fractures are identified. Bone density and texture are normal. No soft tissue swelling is present. Procedure Note Kimi Tello MD - 10/11/2021 EXAMINATION: XR ANKLE LEFT 3VW OR MORE, XR KNEE LEFT 3VW, XR HIP [id number] OR MORE, XR TIBIA FIBULA LEFT 2VW HISTORY: W11.XXXA: Fall from ladder, initial encounter COMPARISON: None. FINDINGS: Left hip: The osseous structures are intact and well aligned without acutefracture or dislocation. The hip joint space is preserved. Bone density andtexture are normal. L4-L5 posterior spinal fusion hardware noted. Left knee: Depressed, comminuted lateral tibial plateau fracture with moderate anterior displacement of the tibial tuberosity. Mildly displacedfracture of the tibial spine may suggest ACL avulsion injury. Corticated osseous fragment posterior to the femoral condyles could be a sesamoid bone. Comminuted fractures of the fibular head. Large suprapatellar joint effusion. Left tibia/fibula: Tibial plateau and fibular head fractures as above. No additional fractures in the tibia or fibula. Bone density and texture are normal. Left ankle: There is widening of the joint space is noted along the lateral aspectof the ankle. No acute fractures are identified. Bone density and textureare normal. No soft tissue swelling is present. IMPRESSION: 1.Fracture of the tibial condyles with involvement of the lateral tibial plateau and in the condylar eminence. There is depression of the lateral tibial plateau (approximately 9 mm). 2.Widening of lateral aspect of ankle joint is noted without definite fractures. Dictated by Andre Aguilar DO (resident services manager). I, Dr. KIMI TELLO MD, [facility] have personally reviewedand interpreted this examination/study. This report was electronically signed by KIMI TELLO MD, FRCR on 10/11/2021 8:48 AM . Lilliam Aguirre MD DIAGNOSTIC IMAGING O RDERABLES * PT-INR [facility] (10/10/2021 6:49 PM MODEL AND MOLD MAKER) Pathologist [facility] PT 12.1 12.1 - 14.8 Seconds 10/10/2021 7:38 PM [employer] AND [employer] [facility] INR 0.9 See Comment 10/10/2021 7:38 PM [employer] [facility] Comment:The suggested therap eutic range for standard coumadin (warfarin) therapy is an INR of 2.0-3.0. For high-risk patients (Mechanical Mitral Valve Prosthesis, etc.), the suggested prophylactic therapeutic range is an INR of 2.5-3.5. Blood BLOOD SPECIMEN / Unknown Venipuncture / Unknown 10/10/2021 6:49 PM [employer] AND [employer] 10/10/2021 7:28 PM [employer]KER Lilliam Aguirre MD LAB - COAGULATION OR DERABLES [facility] [address] [place] [address], [facility] [phone] * (ABNORMAL) CBC W AUTO DIFFERENTIAL (10/10/2021 6:48 PM [employer]) WBC 9.8 3.5 - 10.5 10? 3 /uL 10/10/2021 7:11 PM [facility] RBC 4.02 3.80 - 5.20 10? 6 /uL 10/10/2021 7:11 PM [facility] Hemoglobin 11.9(L) 12.0 - 15.6 g/dL 10/10/2021 7:11 PM [facility] Hematocrit 37.4 35.0 - 45.0 % 10/10/2021 7:11 PM [facility] MCV 93.0 80.7 - 98.3 fL 10/10/2021 7:11 PM [facility] MCH 29.6 26.7 - 34.0 pg 10/10/2021 7:11 PM [facility] MCHC 31.8 30.8 - 35.9 g/dL 10/10/2021 7:11 PM [facility] Platelet Count 294 150 - 400 10? 3 /uL 10/10/2021 7:11 PM [facility] RDW-SD 46.0 36.0 - 50.0 fL 10/10/2021 7:11 PM [facility] RDW-CV 13.4 11.2 - 14.8 % 10/10/2021 7:11 PM [facility] MPV 9.9 9.4 - 12.9 fL 10/10/2021 7:11 PM [facility] nRBC Absolute 0.00 0 10? 3 /uL 10/10/2021 7:11 PM [facility] nRBC Auto 0.0 0 /100 WBC 10/10/2021 7:11 PM [facility] Neutrophils % 66.2 35.0 - 70.0 % 10/10/2021 7:11 PM [facility] Lymphocytes % 21.3 20.0 - 43.0 % 10/10/2021 7:11 PM [facility] Monocytes % 10.2 5.0 - 13.0 % 10/10/2021 7:11 PM [facility] Eosinophils % 1.7 0.0 - 6.0 % 10/10/2021 7:11 PM [facility] Basophil % 0.3 0.0 - 2.0 % 10/10/2021 7:11 PM [facility] Neutrophils Absolute 6.5 1.6 - 7.0 10? 3 /uL 10/10/2021 7:11 PM [facility] Lymphocyte Absolute 2.1 1.1 - 3.9 10? 3 /uL 10/10/2021 7:11 PM [facility] Monocytes Absolute 1.00 0.26 - 1.07 10? 3 /uL 10/10/2021 7:11 PM [facility] Eosinophils Absolute 0.17 0.00 - 0.47 10? 3 /uL 10/10/2021 7:11 PM [facility] Basophils Absolute 0.03 0.00 - 0.08 10? 3 /uL 10/10/2021 7:11 PM [facility] Immature Granulocytes % 0.3 0.0 - 1.0 % 10/10/2021 7:11 PM [facility] Immature Granulocytes Absolute 0.03 10/10/2021 7:11 PM [facility] Blood BLOOD SPECIMEN / Unknown Venipuncture / Unknown 10/10/2021 6:48 PM [employer] 10/10/2021 7:01 PM [employer] Lilliam Aguirre MD LAB - HEMATOLOGY ORD ERABLES [facility] [address] [place] [address], [facility] [phone] * (ABNORMAL) COMPREHENSIVE METABOLIC PANEL (10/10/2021 6:48 PM [employer] AND [employer]KER) BUN 19 7 - 26 mg/dL 10/10/2021 7:25 PM [facility] Creatinine 1.18(H) 0.56 - 0.96 mg/dL 10/10/2021 7:25 PM [facility] Sodium 142 136 - 145 mmol/L 10/10/2021 7:25 PM [facility] Potassium 3.7 3.5 - 4.5 mmol/L 10/10/2021 7:25 PM [facility] Chloride 106 98 - 107 mmol/L 10/10/2021 7:25 PM [facility] CO2 22 22 - 29 mmol/L 10/10/2021 7:25 PM [facility] Glucose 99 70 - 115 mg/dL 10/10/2021 7:25 PM [facility] Calcium 9.9 8.4 - 10.2 mg/dL 10/10/2021 7:25 PM [facility] Protein Total 6.8 6.0 - 8.3 g/dL 10/10/2021 7:25 PM [facility] Albumin 3.6 3.4 - 5.0 g/dL 10/10/2021 7:25 PM [facility] Bilirubin Total 0.2 0.2 - 1.2 mg/dL 10/10/2021 7:25 PM [facility] Alkaline Phosphatase 93 40 - 150 U/L 10/10/2021 7:25 PM [facility] ALT 24 5 - 55 U/L 10/10/2021 7:25 PM [facility] AST 30 5 - 34 U/L 10/10/2021 7:25 PM [facility] Anion Gap 18 8 - 18 10/10/2021 7:25 PM [facility] BUN/Creatinine Ratio 16 7 - 23 10/10/2021 7:25 PM [facility] Osmolality Calculated 296 270 - 300 mOsm/kg 10/10/2021 7:25 PM [facility] Albumin/Globulin Ratio 1.1 1.1 - 2.3 10/10/2021 7:25 PM [facility] eGFR by CKD-EPI 48(L) >=90 mL/min/1.7 3 m2 10/10/2021 7:25 PM [facility] Blood BLOOD SPECIMEN / Unknown Venipuncture / Unknown 10/10/2021 6:48 PM [employer] 10/10/2021 7:01 PM [facility] Lilliam Aguirre MD LAB - CHEMISTRY JOCELYNN GARCIA [facility] Organization Address City/State/ZIP Co de Phone Number [facility] [address] [place] [address], [facility] [phone] * CULTURE MRSA (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 [facility] Nasopharyngeal 09/25/2014 9: 07 AM [employer] AND M[employer]KER 09/25/2014 3:16 PM [employer]DEL AND MOLD [employer]KER Narrative [facility] - 09/26/2014 11:18 AM MO[employer] AND MOLD MAKER Zackaryimen#[id number] Ashok Loc/Rm/Bed: OP SGPREOP// Historical Provider MD LAB - MICROBIOLOG Y ORDERABLES Performing Organization Address [facility]/State/[facility] Co de Phone Number [facility] [address] [phone] Care Teams Foreign Diplomat Relationship Specialty Start Date End Date Edy Aviles DO [address] [place] [address] PCP - General 06/17/22
--- OUTSIDE RECORDS SUMMARY | 2024-12-07 08:08 | XMS_ITS | Clinical Summary ---
Author Organization [facility] Address [address] [place] [address] Care Team Providers Care Central Scheduler Name Role Phone Edy Aviles DO Primary Care Provider [phone] Source Comments [facility],non-owned Affiliates and Associated Physician Practices is amultiple site organization consisting of ambulatory clinics and hospital sitesin [place], [place], [place] and [place]. This disclosure is being madepursuant to the Care Everywhere program and may not contain all information available regarding this patient. Last updated 18.[facility] Allergies Active Allergy Reactions Criticality Noted Date Comments Codeine Urticaria,Nausea and /or Vomiting Medium 10/10/2021 Lisinopril Nausea and/or Vomiting Low 08/19/2021 Nausea and abdom pain Medications * Be aware that medications may not be up to date on this document. Alwaysverify current medications with the patient. Medication Sig Dispensed Refills Start Date End Date Status metoprolol tartrate (LOPRESSOR) 25 MG tablet Take 25 mg by mouth 2 times daily Active amLODIPine (NORVASC) 5 MG tablet Take 5 mg by mouth once daily Active omeprazole (PRILOSEC) 40 MG capsule Take 40 mg by mouth daily before breakfast Active amitriptyline (ELAVIL) 25 MG tablet Take 25 mg by mouth at bedtime Active cycloSPORINE (RESTASIS) 0.05 % ophthalmic suspension 2 times daily Active aspirin (ASPIRIN) 325 MG tablet Take 325 mg by mouth once daily Active therapeutic multivitamin-mineral s (THERAGRAN-M) tablet Take 1 tablet by mouth daily with food Active calcium carbonate (CALTRATE) 600 MG tablet Take 1 tablet by mouth daily with food Active vitamin D3 (CHOLECALCIFEROL) 25 MCG (1000 UNITS) tablet Take 2,000 Units by mouth once daily Active Estradiol (IMVEXXY MAINTENANCE PACK) 10 MCG INST Insert into the vagina Two times a week Active gabapentin (NEURONTIN) 300 MG capsule Take 1 (one) capsule by mouth 3 times daily 90 capsule 10/26/2021 Active docusate sodium (COLACE) 100 MG capsuleIndications:C losed fracture of left tibial plateau, initial encounter Take 1 (one) capsule by mouth 2 times daily 60 capsule 10/26/2021 Active Active Problems Problem Noted Date Diagnosed Date Accidental fall from ladder 10/10/2021 Closed fracture of left fibula and tibia 021 Pain of left lower extremity 10/10/2021 Closed fracture of left tibial plateau Retained orthopedic hardware Immunizations Name Administration Dates Next Due Ian [employer] primary monoval ent 12+ yr 0.3mL Purple cap 09/08/2021,03/05/2021,02/05/2021 Social History Tobacco Use Types Packs/Day Years [...] Comments Blood Pressure 148/57 10/26/2021 7:27 AM [employer] Pulse 95 10/26/2021 7:27 AM [employer] Temperature 36.8 ??C (98.3 ??F) 10/26/2021 7:27 AM CS T Respiratory Rate 16 10/25/2021 10:58 PM [employer] Oxygen Saturation 100% 10/26/2021 7:27 AM [employer] Inhaled Oxygen Concentration 40% 10/25/2021 1 2:10 PM [employer] Weight 85.7 kg (189 lb) 07/08/2022 9:04 AM CDT Height 156.2 cm (5' 1.5 ) 07/08/2022 9:04 AM CDT Body Mass Index 35.13 07/08/2022 9:04 AM CDT Plan of Treatment Health Maintenance Due Date Last Done Comments BONE DENSITY TESTING 1955 COLOGUARD (AGES 45-75) - COLON CA SCREENING 1956 COLON MONITORING 1956 COLONOSCOPY - COLON CA SCREENING 1956 CT COLONOGRAPHY - COLON CA SCREENING 1955 Colorectal Cancer Screening 1956 FIT - COLON CA SCREENING 1956 FLEX SIG - COLON CA SCREENING 1956 LIPID TESTING 1955 MAMMOGRAM 1955 MEDICARE AWV ? 12 MONTHS 1955 HEPATITIS C SCREENING 09/06/1974 DTAP/TDAP/TD VACCINES (1 - Tdap) 1975 PNEUMOCOCCAL VACCINE 50+ (1 of 2 - PCV) 1975 ZOSTER VACCINE (1 of 2) 2006 COVID-19 VACCINE (4 - season) 2024 09/08/2021, 03/05/2021, 02/05/2021 INFLUENZA VACCINE (#1) 2024 SCREENING FOR DIABETES 10/26/2024 , 10/15/2021, 10/14/2021, Additional history exists DEPRESSION SCREENING 11/09/2024 Respiratory Syncytial Virus (RSV) Vaccine Pt: or over 60 yrs (1 - 1-dose 75+ series) 2031 HEPATITIS B VACCINE Aged Out No longe r eligible based on patient's age to complete this topic HIB VACCINE Aged Out No longer eligi ble based on patient's age to complete this topic HPV VACCINE Aged Out No longer eligi ble based on patient's age to complete this topic MENINGOCOCCAL (Group B) VACCINE Aged Out No longer eligible based on patient's age to complete this topic MENINGOCOCCAL VACCINE Aged Out No diana annabel eligible based on patient's age to complete this topic Goals Goal Patient Goal Type Associated Problems Recent Progress Patient-Stated? Author Mobility General Nancy Curry, RN Note: Expected end date: 3 months The goal is to maintain or improve your mobility at the optimum level for you. Interventions: Will be compliant with progressive WB to LLE, full weight in 3-4 weeks. Medical Devices Implanted Type Area Admissions Manager Rn Device Identifier Shelf Expiration Date Model / Serial / Lot Pin Hlf 255mm 5mm Jtx Lng Ss 35mm Extfix Implanted:Qty: 2 on 10/11/2021 by Jovon Maloney, DO at [facility] Left: [employer] [id number] / / Pin Hlf 40mm 5mm Jtx Lng Ti Ntrd Extfix Implanted:Qty: 2 on 10/11/2021 by Jovon Maloney, DO at [facility] Left: [employer] [id number] / / Bar Extfix 200mm Jtx Cfbr Nonster Disp Implanted:Qty: 2 on 10/11/2021 by Jovon Maloney DO at [facility] Left: [employer] [id number] / / Screw 3.5mm 46mm Ft Hex Drv Nlckg Fly Implanted:Qty: 1 on 10/25/2021 by Jovon Maloney, DO at [facility] Left: [employer] [id number] / / Screw 3.5mm 50mm Ft Nonlock Hex Drv Elb Implanted:Qty: 2 on 10/25/2021 by Jovon Maloney DO at [facility] Left: [employer] [id number] / / Screw 3.5mm 55mm Ft Slf-Tap Hex Lopro Implanted:Qty: 1 on 10/25/2021 by Jovon Maloney DO at [facility] Left: [employer] [id number] / / Screw 3.5mm 65mm T15 Lck Slf-Tap Tip Tpr Implanted:Qty: 3 on 10/25/2021 by Jovon Maloney DO at [facility] Left: [employer] [id number] / / Screw 3.5mm 70mm T15 Lck Slf-Tap Tip Tpr Implanted:Qty: 2 on 10/25/2021 by Jovon Maloney, DO at [facility] Left: [employer] [id number] / / Plate 5 Hl Lck Lopro Dist Blt Tip Tib Lt Implanted:Qty: 1 on 10/25/2021 by Jovon Maloney, DO at [facility] Left: [employer] [id number] / / Screw 3.5mm 65mm 2.2mm Mldir Lck Sq Drv Implanted:Qty: 1 on 10/25/2021 by Jovon Maloney, at [facility] Left: [employer] [id number] / / Screw 3.5mm 80mm Sq Drv Nonlock Lopro Implanted:Qty: 1 on 10/25/2021 by Jovon Maloney, DO at [facility] Left: [employer] [id number] / / Screw 3.5mm 75mm T15 Lck Slf-Tap Tip Tpr Implanted:Qty: 1 on 10/25/2021 by Jovon Maloney, at [facility] Left: [employer] [id number] / / Plate 5 Hl Lopro Lck Ulna Olcrn Dist 61 Implanted:Qty: 1 on 10/25/2021 by Jovon Maloney DO at [facility] Left: [employer] [id number] / / Screw 3.5mm 34mm Ft Nonlock Hex Drv Elb Implanted:Qty: 1 on 10/25/2021 by Jovon Maloney DO at [facility] Left: [employer] [id number] / / Screw 3.5mm 38mm Ft Slf-Tap Hex Lopro Implanted:Qty: 1 on 10/25/2021 by Jovon Maloney DO at [facility] Left: [employer] [id number] / / Screw 3.5mm 40mm Ft Slf-Tap Hex Lopro Implanted:Qty: 1 on 10/25/2021 by Jovon Maloney DO at [facility] Left: [employer] [id number] / / Explanted Type Area Admissions Manager Rn Device Identifier Shelf Expiration Date Model / Serial / Lot Clamp Extfix Jtx 10.5mm Bar To Bar Mr Buitrago Explanted:Qty: 2 on 10/11/2021 at [facility] Left: [employer] [id number] / / Screw 3.5mm 55mm Ft Slf-Tap Hex Lopro Explanted:Qty: 1 on 10/25/2021 by Jovon Maloney DO at [facility] Left: [employer] [id number] / / Wire K 1.6mm 6in [facility] Explanted:Qty: 4 on 10/25/2021 by Jovon Maloney DO at [facility] Left: [employer] [id number] / / Screw 3.5mm 36mm Ft Slf-Tap Hex Lopro Explanted:Qty: 1 on 10/25/2021 by Jovon Maloney DO at [facility] Left: [employer] [id number] / / Procedures Procedure Name Priority Date/Time Associated Diagnosis Comments BASIC METABOLIC PANEL (CALCIUM TOTAL) Routine 10/26/2021 2:31 AM [facility] Closed fracture of left tibial plateau, initial encounter from Last 3 Months or Most Recently Relevant to Health Maintenance Results * (ABNORMAL) BASIC METABOLIC PANEL (CALCIUM TOTAL) (10/26/2021 2:31 AM [facility] HANDLER) BUN 14 7 - 26 mg/dL 10/26/2021 3:29 AM [facility] Creatinine 0.95 0.56 - 0.96 mg/dL 10/26/2021 3:29 AM [facility] Sodium 134(L) 136 - 145 mmol/L 10/26/2021 3:29 AM [facility] Potassium 4.2 3.5 - 4.5 mmol/L 10/26/2021 3:29 AM [facility] Chloride 102 98 - 107 mmol/L 10/26/2021 3:29 AM [facility] CO2 25 22 - 29 mmol/L 10/26/2021 3:29 AM [facility] Glucose 106 70 - 115 mg/dL 10/26/2021 3:29 AM [facility] Calcium 8.9 8.4 - 10.2 mg/dL 10/26/2021 3:29 AM [facility] Anion Gap 11 8 - 18 10/26/2021 3:29 AM [facility] BUN/Creatinine Ratio 15 7 - 23 10/26/2021 3:29 AM [facility] Osmolality Calculated 279 270 - 300 mOsm/kg 10/26/2021 3:29 AM [facility] eGFR by CKD-EPI 63(L) >=90 mL/min/1.7 3 m2 10/26/2021 3:29 AM [facility] Blood BLOOD SPECIMEN / Unknown Lab Venipuncture / Unknown 10/26/2021 2:31 AM [facility] [facility] 10/26/2021 3:01 AM [facility] Jovon Maloney DO LAB - CHEMISTRY JOCELYNN GARCIA [facility] [address] [place] [address], [facility] [phone] from Last 3 Months or Most Recently Relevant to Health Maintenance Advance Directives * Full Code (Latest Code Status on File) Date Activated Date Inactivated Comments 10/25/2021 1:30 PM 10/26/2021 1:32 PM * Full Code Date Activated Date Inactivated Comments 10/11/2021 12:36 PM 10/15/2021 3:44 PM Care Teams Central Scheduler Relationship Specialty Start Date End Date Edy Aviles DO [address] [place] [address] PCP - General 06/17/22
--- OUTSIDE RECORDS SUMMARY | 2024-12-07 08:08 | XMS_ITS | Clinical Summary ---
Author Organization [facility] Address [facility] [facility] [place], [place] [address] [place] [address] Care Team Providers Care Lint Cleaner Name Role Phone Zafar Reddy MD Primary Care Provider [phone] Allergies Active Allergy Reactions Criticality Noted Date Comments Codeine Hives 11/12/2022 Lisinopril Nausea and Vomiting,Nausea Only Low 08/19/2021 Nausea and abdom pain Nausea and abdom pain Medications metoprolol tartrate (LOPRESSOR) 25 MG tablet Take 0.5 tablets (12.5 mg total) by mouth 2 (two) times daily. Active amLODIPine (NORVASC) 5 MG tablet Take 0.5 tablets (2.5 mg total) by mouth daily. Active omeprazole (PRILOSEC) 40 MG capsule Take 1 capsule (40 mg total) by mouth daily. Active gabapentin (NEURONTIN) 300 MG capsule Take 1 capsule (300 mg total) by mouth 2 (two) times a day. Active DULoxetine (CYMBALTA) 30 MG capsule Take 1 capsule (30 mg total) by mouth daily. Active atorvastatin (LIPITOR) 20 MG tablet Take 1 tablet (20 mg total) by mouth nightly at bedtime. Active furosemide (LASIX) 20 MG tablet Take 1 tablet (20 mg total) by mouth daily. Active metOLazone (ZAROXOLYN) 2.5 MG tablet Take 1 tablet (2.5 mg total) by mouth daily. Active cycloSPORINE (RESTASIS) 0.05 % ophthalmic emulsion 1 drop 2 (two) times daily. Active minocycline (MINOCIN) 50 MG capsule Take 1 capsule (50 mg total) by mouth 2 (two) times daily. Active vitamin D3, cholecalciferol , 75 MCG (3000 UT) Tab tablet Take 1 tablet (3,000 Units total) by mouth daily. Active Multiple Vitamins-Minera ls (CENTRUM SILVER 50+WOMEN OR) Active mineral oil liquid Take 30 mLs by mouth daily as needed for Constipation. Active psyllium (METAMUCIL) 51.7 % packet Take 1 packet by mouth 3 (three) times daily. Active polyethylene glycol (GLYCOLAX) packet Take 240 mLs (17 g total) by mouth daily. Dissolve powder in 240 mL water Active calcium carb-cholecalci ferol (CALTRATE+D) 600-10 MG-MCG Tab tablet 1 tablet daily. Active amitriptyline (ELAVIL) 25 MG tablet Take 1 tablet (25 mg total) by mouth nightly at bedtime. at bedtime 01/15/2022 Active Active Problems Problem Noted Date Diagnosed Date Lumbar radiculopathy 11/12/2022 Overview (11/12/2022): Added automatically from request for surgery [id number] Social History Tobacco Use Types Packs/Day Years Used Date Smoking Tobacco: Every Day Cigarettes 0.5 60 Smokeless Tobacco: Never Tobacco Cessation:Ready to Q uit: Not Asked; Counseling Given: Not Answered Alcohol Use Standard Drinks/Week Comments Never 0 (1 standard drink = 0.6 oz pur e alcohol) Comments No Sex and Gender Information Value Date Recorded Sex Assigned at Not on file Legal Sex Female 7:18 PM CDT Gender Identity Not on file Sexual Orientation Not on file Last Filed Vital Signs Vital Sign Reading Time Taken Comments Blood Pressure 121/75 03/17/2023 11:57 AM CDT Pulse 84 03/17/2023 11:57 AM CDT Temperature 36.6 ??C (97.9 ??F) 03/17/2023 11:31 AM C DT Respiratory Rate 18 03/17/2023 11:57 AM CDT Oxygen Saturation 100% 03/17/2023 11:57 AM CDT Inhaled Oxygen Concentration - - Weight 93 kg (205 lb) 03/17/2023 11:31 AM CDT Height 156.2 cm (5' 1.5 ) 03/17/2023 11:31 AM CD T Body Mass Index 38.11 03/17/2023 11:31 AM CDT Plan of Treatment Health Maintenance Due Date Last Done Comments Colorectal Cancer Screening Colonoscopy (10 Years) 1956 Hepatitis C 1974 Mammogram Screening 1996 Annual Medicare Wellness Visit 2021 Dexa Scan (General) 2021 COVID-19 Vaccine (4 - 2023-2 5 season) 2024 09/08/2021, 03/05/2021, 02/05/2021 Influenza Adult (#1) 2024 08/29/2021, 08/26/2020 RSV Immunization or 60+ Years (1 - 1-dose 75+ series) 2031 DTaP, Tdap and Td Vaccines ( 2 - Td or Tdap) 09/04/2032 09/04/2022 Zoster Vaccines Completed 11/20/2020, 09/21/2020 Pneumococcal Vaccine: 65+ Years Completed 01/24/2022 Meningococcal B Vaccine Aged Out No l onger eligible based on patient's age to complete this topic Meningococcal Vaccine Aged Out No diana annabel eligible based on patient's age to complete this topic RSV Immunizations Under 20 Months Aged Out No longer eligible b ased on patient's age to complete this topic Insurance MEDICARE AET Care Teams Lint Cleaner Relationship Specialty Start Date End Date Zafar Reddy MD [address] [place] [id number] PCP - General 05/10/12
--- OUTSIDE RECORDS SUMMARY | 2024-12-07 08:08 | XMS_ITS | Encounter Summary ---
Author Organization [facility] Health Address [address] [place] [address] Care Team Providers Care Equity Director Name Role Phone Edy Aviles DO Primary Care Provider [phone] Encounter Details Date Type Department Care Team (Late st Contact Info) Description 02/24/2024 Lab Requisition [facility] - DermPath Lab [address] [facility], [facility] [place] [id number] Israel [place] [address] Social History Tobacco Use Types Packs/Day Years Used Date Smoking Tobacco: Every Day Cigarettes 0.5 52.1 Started: 10/25/1972 Smokeless Tobacco: Never Alcohol Use Standard Drinks/Week Comments Not Currently [...] on file Sexual Orientation Not on file documented as of this encounter Functional Status Functional Status Response Date of Assess ment Is person deaf or have serious hearing difficult y? No 10/15/2021 Is person blind or have serious difficulty seein g? No 10/15/2021 Does person have serious dif ficulty walking/climbing stairs? Yes 10/15/2021 Does person have difficulty dressing/bathing? No 10/15/2021 Does person have difficulty doing errands alone? No 10/15/2021 Cognitive Status Response Date of Assessm ent Does person have difficulty concentrating/remembering/making decisions? No 10/15/2021 documented as of this encounter Plan of Treatment Not on file documented as of this encounter Goals Goal Patient Goal Type Associated Problems Recent Progress Patient-Stated? Author Mobility General No Nancy Beltran, RN Note: Expected end date: 3 months The goal is to maintain or improve your mobility at the optimum level for you. Interventions: Will be compliant with progressive WB to LLE, full weight in 3-4 weeks. documented as of this encounter Procedures Procedure Name Priority Date/Time Associated Diagnosis Comments DERMATOPATHOLOGY Routine 02/23/2024 12:0 0 AM CDT documented in this encounter Results * DERMATOPATHOLOGY (02/23/2024 12:00 AM CDT) Case Report Dermatopathology Report ? Case: [id number] ? Authorizing Provider: ??Israel Lang MD ?Collected: ? 02/23/2024 12:00 AM ? Ordering Location: ? [facility] - ??Received: ?02/25/2024 06:55 AM ? DermPath Lab ? Pathologist: ? Maryanne Olmos MD ? Specimens: ?? A) - Skin, right paranasal cheek ? B) - Skin, right cheek ? C) - Skin, right parietal scalp ? 4 1:41 PM CDT DERMATOPATHOLOGY LABORATORY Final Diagnosis Specimen A. 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 SKIN, right parietal scalp: NEUROFIBROMA (D36.10) 4 1:41 PM CDT DERMATOPATHOLOGY LABORATORY Clinical History A: R/O BCC vs other B: R/O BCC vs other C: R/O BCC 4 1:41 PM CDT DERMATOPATHOLOGY LABORATORY Gross Description Specimen A: Received [...] five pieces in aggregate shave biopsy measuring [id number] mm. Jar 0. 1:41 PM T DERMATOPATHOLOGY LABORATORY Microscopic Description Specimen A. SKIN, [...] collagen is delicate and pale. 1:41 PM T DERMATOPATHOLOGY LABORATORY Disclaimer An external and internal positive and negative controls are appropriate for the histochemical, immunohistochemical and immunofluorescence stain(s) in this case (if any), except where stated explicitly. The performance characteristics of the stain(s) cited in this report were developed and its performance characteristic determined by the Dermatopathology Laboratory at [facility], directed by Dr. Yessi Jackman. These tests need not be, and therefore are not, approved by the [place] Food and Drug Administration. The tests are used for clinical purposes. Billing Codes Specimen Charges Stain Charges 34503 32014 14159 1 1 1 1:41 PM T DERMATOPATHOLOGY LABORATORY Embedded Images 1:41 PM T DERMATOPATHOLOGY LABORATORY Pathology/Cytology TISSUE SPECIMEN FROM SKIN / Unknown 02/23/2024 02/25/2024 6:55 AM CDT Miscellaneous samples (specimen) TISSUE SPECIMEN FROM SKIN / Unknown 02/23/2024 02/25/2024 6:55 AM CDT Miscellaneous samples (specimen) TISSUE SPECIMEN FROM SKIN / Unknown 02/23/2024 02/25/2024 6:55 AM CDT Israel Lang MD LAB - PATHOLOGY/CYTO LOGY ORDERABLES DERMATOPATHOLOGY LABORATORY [facility] - Department of Dermatology [facility] Medicine [address] [place] [address], [address] [phone] documented in this encounter Visit Diagnoses Not on filedocumented in this encounter Care Teams Equity Director Relationship Specialty Start Date End Date Edy Aviles DO [address] [place], [place] [id number] PCP - General 06/17/22 documented as of this encounter
--- OUTSIDE RECORDS SUMMARY | 2024-12-07 08:08 | XMS_ITS | Encounter Summary ---
Author Organization [facility] Address [address] [facility] [place] [address] Care Team Providers Care Store Detective Name Role Phone Edy Aviles DO Primary Care Provider [phone] Encounter Details Date Type Department Care Team (Late st Contact Info) Description 12/19/2020 Lab Requisition [facility] Care DermPath Lab [address] [facility], [place] [id number] Israel Lang MD [address] [place] [address] Social History Tobacco Use Types Packs/Day Years Used Date Smoking Tobacco: Never Assessed Sex and Gender Information Value Date Recorded Sex Assigned at Not on file Gender Identity Not on file Sexual Orientation Not on file documented as of this encounter Plan of Treatment Not on file documented as of this encounter Procedures Procedure Name Priority Date/Time Associated Diagnosis Comments DERMATOPATHOLOGY Routine 12/18/2020 12:0 0 AM [facility] documented in this encounter Results * DERMATOPATHOLOGY (12/18/2020 12:00 AM [facility]) Case Report Dermatopathology Report ? Case: [id number] ? Authorizing Provider: ??Israel Lang MD ?Collected: ? 12/18/2020 12:00 AM ? Ordering Location: ? [facility] DermPath Lab ?Received: ?12/19/2020 11:37 AM ? Pathologist: ? Nata Olmos MD ? Specimen: ?Skin, left ear superior rim ? 1 4:54 PM [facility] DERMATOPATHOLOGY LABORATORY Final Diagnosis Specimen A. 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 4:54 PM [facility] DERMATOPATHOLOGY LABORATORY Gross Description Specimen A: Received is one formalin filled container labeled with the patient's name and designated left ear superior rim. The specimen consists of a shave biopsy (4 pieces) measuring 2v0q8ik, 8x7x0my, 9b9t6oq, & 6s6a1sk. Jar 0. 4:54 PM [facility] DERMATOPATHOLOGY LABORATORY Microscopic Description Specimen A. SKIN, left ear superior rim: There is epidermal hyperplasia overlying dilated blood vessels and fibroplasia. 4:54 PM [facility] DERMATOPATHOLOGY LABORATORY Disclaimer An external and internal positive and negative controls are appropriate for the histochemical, immunohistochemical and immunofluorescence stain(s) in this case (if any), except where stated explicitly. The performance characteristics of the stain(s) cited in this report were developed and its performance characteristic determined by the Dermatopathology Laboratory at [facility], directed by Dr. Yessi Jackman. These tests need not be, and therefore are not, approved by the [place] Food and Drug Administration. The tests are used for clinical purposes. Billing Codes Specimen Charges Stain Charges 84185 1 1 4:54 PM [facility] DERMATOPATHOLOGY LABORATORY Embedded Images 1 4:54 PM [facility] DERMATOPATHOLOGY LABORATORY Pathology/Cytolog y TISSUE SPECIMEN FROM SKIN / Unknown 12/18/2020 12/19/2020 11:37 AM [facility] Israel Lang MD LAB - PATHOLOGY/CYTO LOGY ORDERABLES DERMATOPATHOLOGY LABORATORY [facility] - Department of Dermatology [facility] [address] [place] [address], [address] [phone] documented in this encounter Visit Diagnoses Not on filedocumented in this encounter Care Teams Store Detective Relationship Specialty Start Date End Date Edy Aviles DO [address] [place] [address] PCP - General 06/17/22 documented as of this encounter
--- OUTSIDE RECORDS SUMMARY | 2024-12-07 08:08 | XMS_ITS | Referral Summary ---
Author Organization [facility] Address [address] [facility] [place] [address] Care Team Providers Care Needle Grinder Name Role Phone Edy Aviles DO Primary Care Provider [phone] Source Comments [facility],non-owned Affiliates and Associated Physician Practices is amultiple site organization consisting of ambulatory clinics and hospital sitesin [place], [place], [place] and [place]. This disclosure is being madepursuant to the Care Everywhere program and may not contain all information available regarding this patient. Last updated 18.[facility] Allergies Active Allergy Reactions Criticality Noted Date [...] Immunizations Name Administration Dates Next Due Ian CyrusOne primary monoval ent 12+ yr 0.3mL Purple [...] Comments Blood Pressure 148/57 10/26/2021 7:27 AM PHOTOCOPYING EQUIPMENT REPAIRER Pulse 95 10/26/2021 7:27 AM PHOTOCOPYING EQUIPMENT REPAIRER Temperature 36.8 ??C (98.3 ??F) 10/26/2021 7:27 AM CS T Respiratory Rate 16 10/25/2021 10:58 PM PHOTOCOPYING EQUIPMENT REPAIRER Oxygen Saturation 100% 10/26/2021 7:27 AM PHOTOCOPYING EQUIPMENT REPAIRER Inhaled Oxygen Concentration 40% 10/25/2021 1 2:10 PM PHOTOCOPYING EQUIPMENT REPAIRER Weight 85.7 kg (189 lb) 07/08/2022 9:04 AM CDT Height 156.2 cm (5' 1.5 ) 07/08/2022 9:04 AM CDT Body Mass Index 35.13 07/08/2022 9:04 AM CDT Functional Status Functional Status Response Date of [...] person have difficulty concentrating/remembering/making decisions? No 10/15/2021 Plan of Treatment Not on file Goals Goal Patient Goal Type Associated Problems Recent Progress Patient-Stated? Author Mobility General No Nancy Beltran, RN Note: Expected end date: 3 months The goal is to maintain or improve your mobility at the optimum level for you. Interventions: Will be compliant with progressive WB to LLE, full weight in 3-4 weeks. Medical Devices Implanted Type Area [employer] Sales Manager Device Identifier Shelf Expiration Date Model / Serial / Lot Pin Hlf 255mm 5mm Jtx Lng Ss 35mm Extfix Implanted:Qty: 2 on 10/11/2021 by Jovon Maloney, DO at [facility] Left: [employer] [id number] / / Pin Hlf 40mm 5mm Jtx Lng Ti Ntrd Extfix Implanted:Qty: 2 on 10/11/2021 by Jovon Maloney, DO at [facility] Left: [employer] [id number] / / Bar Extfix 200mm Jtx Cfbr Nonster Disp Implanted:Qty: 2 on 10/11/2021 by Jovon Maloney, DO at [facility] Left: [employer] [id number] / / Screw 3.5mm 46mm Ft Hex Drv Nlckg Fly Implanted:Qty: 1 on 10/25/2021 by Jovon Maloney, DO at [facility] Left: [employer] 8150-37-046 / / Screw 3.5mm 50mm Ft Nonlock Hex Drv Elb Implanted:Qty: 2 on 10/25/2021 by Jovon Maloney, DO at [facility] Left: [employer] [id number] / / Screw 3.5mm 55mm Ft Slf-Tap Hex Lopro Implanted:Qty: 1 on 10/25/2021 by Jovon Maloney, DO at [facility] Left: [employer] 8150-37-055 / / Screw 3.5mm 65mm T15 Lck Slf-Tap Tip Tpr Implanted:Qty: 3 on 10/25/2021 by Jovon Maloney, DO at [facility] Left: [employer] 8161-35-065 / / Screw 3.5mm 70mm T15 Lck Slf-Tap Tip Tpr Implanted:Qty: 2 on 10/25/2021 by Jovon Maloney, DO at [facility] Left: [employer] [id number] / / Plate 5 Hl Lck Lopro Dist Blt Tip Tib Lt Implanted:Qty: 1 on 10/25/2021 by Jovon Maloney, DO at [facility] Left: [employer] 8162-35-705 / / Screw 3.5mm 65mm 2.2mm Mldir Lck Sq Drv Implanted:Qty: 1 on 10/25/2021 by Jovon Maloney, DO at [facility] Left: [employer] [id number] / / Screw 3.5mm 80mm Sq Drv Nonlock Lopro Implanted:Qty: 1 on 10/25/2021 by Jovon Maloney, DO at [facility] Left: [employer] 1312-18-080 / / Screw 3.5mm 75mm T15 Lck Slf-Tap Tip Tpr Implanted:Qty: 1 on 10/25/2021 by Jovon Maloney DO at [facility] Left: [employer] 8161-35-075 / / Plate 5 Hl Lopro Lck Cha Marquez Dist 61 Implanted:Qty: 1 on 10/25/2021 by Jovon Maloney DO at [facility] Left: [employer] [id number] / / Screw 3.5mm 34mm Ft Nonlock Hex Drv Elb Implanted:Qty: 1 on 10/25/2021 by Jovon Maloney DO at [facility] Left: [employer] [id number] / / Screw 3.5mm 38mm Ft Slf-Tap Hex Lopro Implanted:Qty: 1 on 10/25/2021 by Jovon Maloney DO at [facility] Left: [employer] [id number] / / Screw 3.5mm 40mm Ft Slf-Tap Hex Lopro Implanted:Qty: 1 on 10/25/2021 by Jovon Maloney DO at [facility] Left: [employer] [id number] / / Explanted Type Area Retail Tire Sales Manager Device Identifier Shelf Expiration Date Model / Serial / Lot Clamp Extfix Jtx 10.5mm Bar To Bar Mr Sf Explanted:Qty: 2 on 10/11/2021 at [facility] Left: [employer] [id number] / / Screw 3.5mm 55mm Ft Slf-Tap Hex Lopro Explanted:Qty: 1 on 10/25/2021 by Jovon Maloney DO at [facility] Left: [employer] 8150-37-055 / / Wire K 1.6mm 6in Hlf Bynt Pnt Ss Fx Explanted:Qty: 4 on 10/25/2021 by Jovon Maloney DO at [facility] Left: [employer] [id number] / / Screw 3.5mm 36mm Ft Slf-Tap Hex Lopro Explanted:Qty: 1 on 10/25/2021 by Jovon Maloney DO at [facility] Left: [employer] [id number] / / Procedures Procedure Name Priority Date/Time Associated Diagnosis Comments BASIC METABOLIC PANEL (CALCIUM TOTAL) Routine 10/26/2021 2:31 AM PHOTOCOPYING EQUIPMENT REPAIRER Closed fracture of left tibial plateau, initial encounter from Last 3 Months or Most Recently Relevant to Health Maintenance Results * (ABNORMAL) BASIC METABOLIC PANEL (CALCIUM TOTAL) (10/26/2021 2:31 AM PHOTOCOPYING EQUIPMENT REPAIRER) BUN 14 7 - 26 mg/dL 10/26/2021 3:29 AM [facility] Creatinine 0.95 0.56 - 0.96 mg/dL 10/26/2021 3:29 AM [facility] Sodium 134(L) 136 - 145 mmol/L 10/26/2021 3:29 AM [facility] Potassium 4.2 3.5 - 4.5 mmol/L 10/26/2021 3:29 AM [facility] Chloride 102 98 - 107 mmol/L 10/26/2021 3:29 AM [facility] CO2 25 22 - 29 mmol/L 10/26/2021 3:29 AM [facility] Glucose 106 70 - 115 mg/dL 10/26/2021 3:29 AM [facility] Calcium 8.9 8.4 - 10.2 mg/dL 10/26/2021 3:29 AM [facility] Anion Gap 11 8 - 18 10/26/2021 3:29 AM [facility] BUN/Creatinine Ratio 15 7 - 23 10/26/2021 3:29 AM [facility] Osmolality Calculated 279 270 - 300 mOsm/kg 10/26/2021 3:29 AM [facility] eGFR by CKD-EPI 63(L) >=90 mL/min/1.7 3 m2 10/26/2021 3:29 AM [facility] Blood BLOOD SPECIMEN / Unknown Lab Venipuncture / Unknown 10/26/2021 2:31 AM PHOTOCOPYING EQUIPMENT REPAIRER 10/26/2021 3:01 AM [facility] Jovon Maloney DO LAB - CHEMISTRY [facility] [address] [place] [address], [facility] [phone] from Last 3 Months or Most Recently Relevant to Health Maintenance Advance Directives * Full Code (Latest Code Status on File) Date Activated Date Inactivated Comments 10/25/2021 1:30 PM 10/26/2021 1:32 PM * Full Code Date Activated Date Inactivated Comments 10/11/2021 12:36 PM 10/15/2021 3:44 PM Care Teams Needle Grinder Relationship Specialty Start Date End Date Edy Aviles DO [address] [address] PCP - General 06/17/22
--- OUTSIDE RECORDS SUMMARY | 2024-12-07 08:09 | XMS_ITS | Encounter Summary ---
Author Organization [facility] Address [address] [place] [address] Care Team Providers Care Computer Programming Professor Name Role Phone Zafar Reddy MD Primary Care Provider [phone] Sung Mullen MD Primary Care Provider [phone] Zafar Reddy MD Primary Care Provider [phone] Sung Mullen MD Primary Care Provider [phone] Zafar Reddy MD Primary Care Provider [phone] Sung Mullen MD Primary Care Provider [phone] Edy Aviles DO Primary Care Provider [phone] Per Samson MD Primary Care Provider [phone] Coretta Childers MD Unavailable [phone] Tima Henson MD Unavailable [phone] Encounter Details Date Type Department Care Team (Late st Contact Info) Description 03/13/2017 Orders Only [facility] ProviderKamran MD [address] [place] [address] Social History Tobacco Use Types Packs/Day Years Used Date Smoking Tobacco: Every Day Alcohol Use Standard Drinks/Week Comments No 0 (1 standard drink = 0.6 oz pur e alcohol) Comments Unknown Sex and Gender Information Value Date Recorded Sex Assigned at Not on file Legal Sex Female 11:06 AM CHARGE ENTRY SPECIALIST Gender Identity Not on file Sexual Orientation Not on file documented as of this encounter Plan of Treatment Not on file documented as of this encounter Procedures Procedure Name Priority Date/Time Associated Diagnosis Comments CARDIOLOGY REPORT 03/13/2017 CARDIOLOGY REPORT 03/13/2017 documented in this encounter Results * CARDIOLOGY REPORT (03/13/2017) Anatomical Region Laterality Modality Other Narrative 03/13/2017 Ordered by an unspecified provider. us Historical Provider [facility] CARDIAC SERVICES PROCE DURES Final Result * CARDIOLOGY REPORT (03/13/2017) Anatomical Region Laterality Modality Other Narrative 03/13/2017 Ordered by an unspecified provider. us Historical Provider CV CARDIAC SERVICES PROCE DURES Final Result documented in this encounter Visit Diagnoses Not on filedocumented in this encounter Care Teams Computer Programming Professor Relationship Specialty Start Date End Date Zafar Reddy MD [address] [place] [address] PCP - General 06/10/12 11/12/20 Sung Mullen MD [address] [place] [address] PCP - General 11/13/20 11/15/20 Zafar Reddy MD [address] [place] [address] PCP - General 11/16/20 11/22/20 Sung Mullen MD [address] [place] [address] PCP - General 11/23/20 11/25/20 Zafar Reddy MD [address] [place] [address] PCP - General 11/26/20 05/20/21 Sung Mullen MD [address] [place] [address] PCP - General Internal Medicine 05/21/21 06/04/22 Edy Aviles DO [address] [place] [address] PCP - General Internal Medicine 06/05/22 05/31/23 Per Samson MD [address] [place] [address] PCP - General Family Practice 06/01/23 Coretta Childers MD [address] [place] [address] Consulting Physician Cardiology 08/28/23 Tima Henson MD [address] [place] [address] Consulting Physician Otolaryngology 08/28/23 documented as of this encounter
--- OUTSIDE RECORDS SUMMARY | 2024-12-07 08:09 | XMS_ITS | Clinical Summary ---
Author Organization [facility] [address] [place] [address] Care Team Providers Care [employer] Name Role Phone Per Samson MD Primary Care Provider [phone] Coretta Childers MD Unavailable [phone] Tima Henson MD Unavailable [phone] Allergies Active Allergy Reactions Criticality Noted Date Comments Codeine Hives Medium Lisinopril Nausea only,Nausea A nd Vomiting Low 08/19/2021 Nausea and abdom pain Nausea and abdom pain Nausea and abdom pain Medications calcium carbonate-vit D3-min 600 mg calcium- 400 unit tablet Take 1 capsule by mouth 2 (two) times a day Active omeprazole (PriLOSEC) 40 mg capsule Take 1 capsule (40 mg total) by mouth 2 (two) times a day Active vspewvsg-xnr-HM-ly copen-lutein 0.4-300-250 mg-mcg-mcg tabletIndications: Vitamin Deficiency Prevention Take 1 tablet by mouth daily Active cycloSPORINE (RESTASIS) 0.05 % ophthalmic emulsion Administer 1 drop into both eyes 2 (two) times a day Active cholecalciferol (VITAMIN D-3) 2000 unit capsule Take 1 capsule (2,000 Units total) by mouth daily Active atorvastatin (LIPITOR) 20 mg tabletIndications: Mixed hyperlipidemia Take 1 tablet (20 mg total) by mouth daily 30 tablet 11 08/19/20 21 Active minocycline (MINOCIN,DYNACIN) 50 mg capsuleIndications :roscea Take 1 capsule (50 mg total) by mouth daily 05/05/20 22 Active polyethylene glycol (MIRALAX) 17 gram packet Take 1 packet (17 g total) by mouth daily Active mineral oil liquid Take 30 mL by mouth daily as needed for constipation Active psyllium husk (MetamuciL) 3.4 gram/5.4 gram powder Take 1 packet by mouth daily Active potassium chloride ER 20 mEq CR tablet Take 1 tablet (20 mEq total) by mouth 2 (two) times a day 12/30/19 24 Active metOLazone (ZAROXOLYN) 2.5 mg tabletIndications: Lower extremity edema TAKE 1 TABLET(2.5 MG) BY MOUTH DAILY NEEDED FOR SWELLING IN ADDITION TO BUMEX NEEDED FOR SWELLING 90 tablet 04/28/20 24 Active Additional Information Patient taking differently: 2.5 mg oral Every other day, Reported on 09/26/2024 amLODIPine (NORVASC) 5 mg tabletIndications: Essential hypertension Take 1 tablet (5 mg total) by mouth daily 90 tablet 3 07/13/20 24 Active bumetanide (BUMEX) 2 mg tabletIndications: Lower extremity edema TAKE 1 TABLET BY MOUTH DAILY 30 MINUTES AFTER METOLAZONE 90 tablet 1 08/29/20 24 Active traMADoL (ULTRAM) 50 mg tablet Take by mouth every 8 (eight) hours as needed 08/30/20 24 Active Active Problems Problem Noted Date Diagnosed Date Vocal cord nodule 08/28/2023 Hoarseness 08/28/2023 Assessment & Plan (08/28/2023 2:02 PM CDT): She has hoarseness due to vocal polyps. We are scheduling her for surgery. Vocal cord polyps 08/28/2023 Assessment & Plan (09/21/2023 9:12 AM STORY WRITER): She is doing pretty well. Feels like her voice is improved. Basically has no complaints. I am recommending no further intervention. The tissue that was excised was benign. At this point I told her to slowly start increasing the use of her voice. Follow-up if she has any further problems with this. No need for follow-up otherwise. Assessment & Plan (08/28/2023 2:01 PM CDT): She has moderate-sized polyps involving both vocal cords. There also appears to be a 3rd polyp coming from the supraglottic area on the left side in the area of the ventricle. This all looks benign and I reassured her of that. I am recommending surgery to remove these. She understands that there is a risk of recurrence particularly with her history of reflux disease and her smoking. She would like to go ahead and proceed with this. Sinus node dysfunction ([facility]) 06/08/2023 Morbid (severe) obesity due to excess calories 0 06/01/2023 Body mass index 40.0-44.9, adult ([facility]) 06/01 Sleep-disordered breathing 09/07/2022 Status post placement of implantable loop record er 03/07/2022 Overview (03/07/2022): [employer]monitor III Loop Recorder. Dx; Syncope, PSVT, AT, RVOT VT s/p ablation. DOI 03/05/2022-[facility]. [address] [employer] remote monitoring. Dizziness 08/19/2021 Lower extremity edema 08/19/2021 Right shoulder pain 05/22/2021 Assessment & Plan (05/22/2021 2:49 PM CDT): Ms. Palma has right shoulder pain that does not seem to be radicular in nature. We had previously refer to physiatry for evaluation. There was some confusion on the referral. We will again refer her to physiatry for evaluation. We will get any EMG/nerve conduction study to rule out acute radiculopathy as a contributing component. Postlaminectomy syndrome, cervical region 2019 Overview (10/26/2020): Added automatically from request for surgery [id number] Migraine 08/10/2020 Assessment & Plan (08/10/2020 2:22 PM CDT): Has 3-6 headaches per month, can last 2-3 days each. Topamax at 25 mg BID, increase to 25/50, then 50 mg BID in 3 weeks Encouraged smoking cessation, efforts to improve sleeping and increase activity. 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 Since neck surgery and occipital to frontal holocephalic pain lasting 8 hours to all day without migrainous features. Possible rebound headache given reliance on prior hydrocodone, excedrin, aleve, and excess caffeine use. She has a number of stressors also likely contributing, smoking, and chronically poor sleep. I reviewed lifestyle interventions that could provide benefit and reviewed treatment options She is on high dose SNRI, beta ladonna, and gabapentin. Offered consideration of topamax for her migraines and possible benefit if tension type headache. Reviewed side effects with patient. Will plan on starting 25 mg nightly, increase to 50 mg in 2 weeks, RTC in 3 months, call for titration every 4 weeks in interim. Try to reduce analgesic use. RTC in 3 months to reassess We did discuss CGRP/botox as possibilities (although unclear these would all be migraine headaches). She does not like needles and is not interested in injection therapy. Piriformis syndrome of right side 03/27/2020 Assessment & Plan (03/27/2020 1:47 PM CDT): Ms. Palma has piriformis syndrome on the right. I have shown her some stretches to do at home. She just completed physical therapy course without improvement of symptoms. I plan to see her back in six months with flexion-extension lumbar spine films at that time. Essential hypertension 02/20/2020 Other dysphagia 02/20/2020 Assessment & Plan (05/22/2021 2:50 PM CDT): Ms. Palma has dysphagia and altered voice after surgery. Her speaking voice seems good. We will again refer her to ENT for a formal evaluation of any vocal cord paralysis. I plan to see her back in 2 months for re-evaluation. History of syncope 02/20/2020 Occipital headache 11/30/2019 Assessment & Plan (08/10/2020 2:20 PM CDT): I believe most of her neck/occipital pain is musculoskeletal, do not see clear evidence of occipital neuralgia. She has failed TCA, SNRI, gabapentin and therapy. I told her directly that I do not have further treatment options for this pain and would consider pain management as next step. Possible migraine management could help this some, but given this is her main complaint encouraged pain management evaluation Assessment & Plan (04/26/2020 2:12 PM CDT): Prior notes document concern for occipital neuralgia, however she does not have tinel's for me today. Her pain is holocephalic and radiates from back of head to eyes and is not lancinating/neuropathic and not triggered by light touch, so not clear to me this is etiology. I suspect tension/rebound headaches more likely etiology. She does have prominent neck muscle tightness/tenderness and post-surgical musculoskeletal pain is certainly contributing as well. Ultimately this neck pain is one of her more problematic symptoms and I likely do not have a great solution for this. I encouraged continued exercises at home and suggested pain management as possible next step for refractory musculoskeletal neck pain. Assessment & Plan (03/27/2020 1:49 PM CDT): Ms. Palma continues to have upper neck pain and scalp pain consistent with occipital neuralgia. She has Tinel sign at the occipital nerves. 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 She will talk to her primary care physician to re-evaluate depression and discussed ways to handle stress. She may ultimately benefit from a specialist that treats occipital neuralgia. Assessment & Plan (11/30/2019 1:53 PM STORY WRITER): Ms. Palma has occipital neuralgia with reproduction of her headaches with palpation of the right greater occipital nerve. I discussed with the patient and her that this be very difficult to treat is generally treated by Neurology or pain management. I've recommended that she get that she had soon neck massage to the may help to loosen the muscles in decreased the irritation of the greater occipital nerve. Cannot no need pain management physicians an area that treat occipital neuralgia. She will research headache centers and pain management centers the treat occipital neuralgia. If she comes of the name, I'd be happy to refer her to a facility for evaluation and treatment of this or she could get a referral from her primary care physician. She is aware that this is a condition that I do not treat. Syncope and collapse 09/06/2019 Mixed hyperlipidemia 09/06/2019 Lumbar post-laminectomy syndrome 06/28/2019 Assessment & Plan (08/19/2022 12:20 PM CDT): Ms. Palma has exacerbation of her lower lumbar pain without focal radiating pain down her lower extremities. She does have neuropathy in her feet. Her lumbar spine x-ray show some degenerative changes adjacent levels above and below her construct while her fusion seems to be stable. Would recommend a CT lumbar myelogram to assess this further checking for adjacent level stenosis and prior fusion. Pending the results further recommendations for injections versus surgery could possibly be made. They will be reviewed with Dr. Singh who is acting supervising physician at this time as Dr. Palmer is out on extended medical leave. Explained to the patient should surgery be recommended she would need to have a BMI of 35 or less. Assessment & Plan (10/02/2020 1:29 PM STORY WRITER): Ms. Palma continues to do well clinically after posterior lumbar decompression fusion at L4-5. She has good alignment. There is no lucency around the hardware. We will continue to follow this over time. Assessment & Plan (11/30/2019 1:51 PM STORY WRITER): Ms. Palma reports persistent numbness in her right foot of despite surgery. She is not having shooting pains down her legs but does have proximal right back buttock and lateral thigh pain that seems to be related to piriformis syndrome. I've given her script for physical therapy for back and leg stretching and strengthening as well as piriformis stretches and balance and gait training. We discussed that her smoking will decrease the chance of a successful fusion at L4-5. Assessment & Plan (06/28/2019 10:57 AM CDT): PLAN: 1. Continue activity restrictions as outlined prior to surgery. 2. Continue bone growth stimulator/brace. WORK STATUS: 1. OFF WORK FOLLOW UP APPT: With Dr. Palmer in 6 weeks with Flexion/Extension Cervical/Lumbar spine films. Lumbar stenosis with neurogenic claudication 10/2019 Overview (05/20/2019): Added automatically from request for surgery [id number] Assessment & Plan (01/22/2023 12:27 PM CDT): Ms. Palma has a solid fusion at L4-5 with good decompression at the level. She has some adjacent level lateral recess stenosis at L3-4, right greater than left. She has significant spondylosis at L2-3, L3-4 and L5-S1. We had a long discussion about her spinal pathology. We discussed that her symptoms are primarily axial spine pain which tends to be poorly responsive surgery. She does have a component of leg symptoms to a lesser degree. We will get any EMG/nerve conduction study of the bilateral lower extremities to evaluate for peripheral neuropathy verses signs of nerve impingement. We will then rediscuss options. She does not have any instability on dynamic range of motion. We specifically discussed surgery could be helpful if symptoms stem from the lateral recess stenosis at L3-4, but would not be helpful this is more of a diffuse degenerative process. We will rediscuss options at her follow-up visit in 6 to 8 weeks. Assessment & Plan (08/02/2019 2:20 PM CDT): Ms. Palma is improved after lumbar decompression fusion at L4-5. She has had relief of the shooting leg pains. She still has some mild back pain. She has persistent numbness in her foot. She has resumed smoking in his where the this markedly reduces the chance of his successful fusion. I have encouraged her to quit. I plan to see her back in 4.5 months with flexion-extension lumbar spine films. Right hip pain 05/17/2019 Assessment & Plan (05/17/2019 1:57 PM CDT): Ms. Palma has right hip pain with a positive AUREA sign. We will get AP and far lateral hip films today. She should get an injection in the right hip prior to the lumbar decompression and fusion. She seems to have both back issues and right hip issues. Low back pain, non-specific 03/02/2019 Assessment & Plan (03/02/2019 11:40 AM CDT): Patient had a previous microdiskectomy at L3-4. However she is having increased lower lumbar pain with radicular symptoms in her right buttock area. I would have her obtain an up dated MRI lumbar spine without contrast to assess for recurrent disc herniation. S/P cervical spinal fusion 11/24/2018 Assessment & Plan (08/19/2022 12:19 PM CDT): Ms. Palma is status post C3-7 anterior cervical fusion and C3-4 Posterior Cervical Fusion. Reviewed her cervical spine x-rays which show mild retrolisthesis at C2- 3 without evidence of hardware compromise. Explained to the patient that her cervical spine is likely as good as it is going to get at this time. No further intervention should be made. Patient to continue with conservative treatments such as NSAIDs, heat, massage as needed. Assessment & Plan (03/20/2021 1:12 PM CDT): Ms. Palma is status post recent C6-7 fusion. She has some proximal right arm symptoms that are likely shoulder related. We will refer her to physiatry for a formal evaluation of her right shoulder. If this does not reveal a cause, then I would order an EMG nerve conduction study of the right upper extremity. She has good quality to her voice but notes hoarseness of voice and change in her voice since surgery. She has done antacid medications for reflux that have not changed this. She reports that is slightly better than last visit. We will refer her to ENT for formal evaluation of her vocal cords. I plan to see her back in 2 months time for re-evaluation. We will give her 1 last script for tramadol. If she needs future medications, she will get them from her primary physician. Assessment & Plan (01/08/2021 12:53 PM STORY WRITER): Ms. Palma does not have pain referable to C7 on examination. She does have some upper arm pain on the right that seems musculoskeletal in nature. We discussed that this seems to be due to inherent shoulder problems. We will continue observation for the next 6 weeks. If it does not improved then we will either get an EMG/nerve conduction study of the upper extremity or send her evaluation of the right shoulder by physiatry. We will give her a script for tramadol and she will be allowed to restart anti-inflammatories 6 weeks from now. In regards to her speech changes, she does seem to have hoarse voice although it has good strength to it. We discussed that this can be exacerbated by smoking and reflux disease. I have asked her to take a Tums at night in addition to her antacid medication. We will re-evaluate since 6 weeks. If it is persistent, we will refer her to ENT for formal evaluation. I look for to seeing her back in 6 weeks with no new films at that time. Assessment & Plan (10/02/2020 1:29 PM STORY WRITER): Ms. Palma was improved after cervical decompression and fusion. After her recent accident, she has developed neck pain and left arm pain. We will get AP and flexion-extension cervical spine films as well as MRI of the cervical spine to evaluate for any spinal cord or nerve root compression or any instability. We will speak to her by phone about the results of the studies once available. We will set up a scheduled appointment for 4 months time as a backup. Assessment & Plan (08/02/2019 2:22 PM CDT): Ms. Palma was also seen for evaluation of cervical issues. She has intermittent numbness in her left arm as she walks if she carries her arm completely underside. If she bends at the elbow than the numbness goes away. I offered to get an EMG/nerve conduction study. She wishes to hold off on this for now. She has separate headaches and episodes of passing out. We discussed that this is not related to the spine I have encouraged her to follow-up with Dr. Rodriguez for evaluation of these syncopal episodes. Assessment & Plan (03/02/2019 11:37 AM CDT): Patient is status post C3-4 posterior cervical fusion for cervical radiculopathy and stenosis. Her cervical spine x-rays show that her instrumentation is intact and there is progression of fusion. I would have her follow the following plan: PLAN: 1. Continue activity restrictions as outlined prior to surgery. 2. Renew medications: Percocet 5-325 1-2 tablets daily p.r.n. I would have her increase her gabapentin to taking 300 mg in the morning, 600 mg mid afternoon, 600 mg at bedtime 3. Wear cervical collar p.r.n. for comfort, she may use heat therapy, muscle creams. 4. After 6 weeks, patient may resume NSAIDs, may increase activity as tolerated WORK STATUS: 1. Working without restriction FOLLOW UP APPT: With Dr. Palmer in 4 months with Flexion/Extension Cervical spine films. Assessment & Plan (01/31/2019 11:10 AM CDT): Patient is status post C3-4 posterior cervical fusion. Her incision seems to be healing well. We will have the patient follow up as already scheduled with cervical spine x-rays. PLAN: 1. Continue activity restrictions as outlined prior to surgery. 2. Continue to wear soft cervical collar as needed for comfort. 3. She may use heat therapy/muscle creams as needed for comfort WORK STATUS: 1. 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 Reviewed she must get up every hour to stretch. FOLLOW UP APPT: With [facility] in 4 weeks with AP/LAT Cervical spine films. Assessment & Plan (11/24/2018 11:40 AM STORY WRITER): Patient has new onset symptoms of her left hand. She has numbness and tingling and has ongoing issues with balance and coordination. I have discussed the above findings along with the review of her x-rays and we have recommended the patient to obtain an MRI cervical spine without contrast to check for any compressive pathology. In order has been given to the patient to schedule on her own at [facility]. We will await the CD to be mailed to our office for Dr. Palmer to review and provide further recommendations. She is to continue the same activity restrictions as outlined prior to surgery. Neuropathic pain 11/24/2018 Assessment & Plan (11/24/2018 11:42 AM STORY WRITER): For her neuropathic pain and would have the patient start gabapentin 300 mg 1 tablet at bedtime for 5 days, titrate up to twice a day after 5 days and then ultimately 3 times per day. I have also given the patient a script for hydrocodone 5-325 for generalized pain. Gastroesophageal reflux disease 02/26/2017 Overview (04/03/2017): Chronic GERD Nicotine dependence 02/26/2017 Overview (04/03/2017): Cigarette nicotine dependence without complication Mixed anxiety depressive disorder 02/26/2017 Overview (04/03/2017): Anxiety and depression Chronic depression 02/26/2017 Overview (04/03/2017): Chronic depression Assessment & Plan (01/22/2023 12:24 PM CDT): Ms. Palma suffers from chronic depression. She reports difficulty performing daily activities. This is likely exacerbating her pain symptoms. She reports that she is working with her primary physician and is on medication for this. She has also been formally referred to Psychiatry for evaluation. 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 Palma has severe lumbar stenosis at the L4-5 level. She seems well decompressed at the L3-4 level. She has significant facet hypertrophy at the L2-3 level without severe compression of the traversing nerve roots. She also seems to have some inherent hip disease on the right. I have offered her L4-5 laminectomy and fusion. I have recommended that she get a right intra-articular hip injection prior to the surgery which will help in the recovery period. We discussed that a significant component of her pain seems to be inherent right hip disease. She also has some radiculopathy that is related to her back. We will get AP and far lateral right hip films today to assess the right hip. Spinal stenosis in cervical region 12/16/2018 01/31/2019 Overview (12/16/2018): Added automatically from request for surgery [id number] Cervical spinal stenosis 09/27/2018 Overview (09/27/2018): Added automatically from request for surgery [id number] HNP (herniated nucleus pulposus), lumbar 07/13/2018 03/02/2019 Overview (07/13/2018): Added automatically from request for surgery [id number] Encounters Date Type Department Care Team Description 11/25/2024 Telephone [facility] [address] [place] [phone] Jessica Shoemaker NP 11/18/2024 Orders Only [facility] [address] [place] [address] [place] [phone] Vy Pierce MD Status post placement of implantable loop recorder (Primary Dx); Paroxysmal supraventricular tachycardia (HCC); History of radiofrequency ablation (RFA) procedure for cardiac arrhythmia; Syncope and collapse; RVOT ventricular tachycardia (HCC) 11/14/2024 9:15 AM STORY WRITER Ancillary Procedure [facility] [address] [place] [address] [place], [place] [address] [address] NICM (nonischemic cardiomyopathy) (CMS/HCC) (HCC); NSVT (nonsustained ventricular tachycardia) (HCC) 10/28/2024 Telephone [facility] [address] [place] [address] [place], [place] [address] [address] Jessica Shoemaker NP 10/27/2024 1:00 PM STORY WRITER Ancillary Procedure [facility] [address] [place] [address] [place] [phone] Syncope and collapse (Primary Dx); NICM (nonischemic cardiomyopathy) (CMS/HCC) (HCC); NSVT (nonsustained ventricular tachycardia) (HCC); Status post placement of implantable loop recorder; RVOT ventricular tachycardia (HCC); Paroxysmal supraventricular tachycardia (HCC) 10/27/2024 Orders Only [facility] [address] [place] [address] [place] [phone] Jessica Shoemaker NP Dizziness of unknown etiology 10/26/[address] [phone] Vy Pierce MD 10/19/2024 Orders Only [facility] Health Information Management [address] [place] [id number] Jessica Shoemaker NP 10/10/2024 Telephone [place] [address] [place] [phone] Jessica Shoemaker NP Dizziness 09/26/2024 8:30 AM STORY WRITER Office Visit [address] [phone] Jessica Shoemaker NP Syncope and collapse (Primary Dx); Status post placement of implantable loop recorder; Lower extremity edema; cardiomyopathy; RVOT ventricular tachycardia (HCC); History of radiofrequency ablation (RFA) procedure for cardiac arrhythmia 09/26/2024 8:15 AM STORY WRITER Ancillary Procedure [facility] Cardiology [address] [place] [address] [place] [phone] Paroxysmal supraventricular tachycardia (HCC) (Primary Dx); NICM (nonischemic cardiomyopathy) (CMS/HCC) (HCC); NSVT (nonsustained ventricular tachycardia) (HCC); Status post placement of implantable loop recorder; RVOT ventricular tachycardia (HCC); Syncope and collapse 09/26/2024 Orders Only [facility] Cardiology [address] [place] [address] [place] [address] [place] [phone] Vy Pierce MD NICM (nonischemic cardiomyopathy) (CMS/HCC) (HCC) (Primary Dx); NSVT (nonsustained ventricular tachycardia) (HCC) from Last 3 Months Immunizations Name Administration Dates Next Due Pfizer SARS-CoV-2 Monovalent Vaccination (12+ Yrs) PURPLE 09/08/2021,03/05/2021,02/05/2021 Surgical History Surgery Date Site/Laterality Comments CARDIAC ELECTROPHYSIOLOGY ST UDY AND ABLATION x 3 SECTION RHINOPLASTY nose fracture ANTERIOR CERVICAL DISCECTOMY W/ FUSION C4-6 in 1999 - and - C3-4 in 2017 TUBAL LIGATION HEMORRHOID SURGERY SALPINGOOPHORECTOMY Left KNEE ARTHROPLASTY Right CARDIAC CATHETERIZATION 11/09/2011 - 11/08/2012 No CAD FOOT SURGERY Left torn ligament MICRODISCECTOMY LUMBAR 11/09/2017 - 11/08/2018 POSTERIOR FUSION CERVICAL SPINE 01/20/2019 C3-4 Posterior Cervical Fusion ([facility]) POSTERIOR FUSION LUMBAR SPINE 06/09/2019 - 07/09/2019 S/P L4-5 PSF ([facility]) TIBIA FRACTURE SURGERY 11/09/2020 - 11/08/2021 Left hardware COLONOSCOPY 11/09/2021 - 11/08/2022 6 polyps removed Medical History Medical History Date Comments GERD (gastroesophageal reflux disease) controlled with meds. Anxiety and depression History of cardiomyopathy 2008 peripa rtum with last EF 61% in 2013 - resolved Cardiac dysrhythmia SVT/ VT - ab lations x 3. Osteoarthritis Cervical spinal stenosis s/p fus ion Lumbar stenosis with neuroge nona claudication Postlaminectomy syndrome Tobacco abuse Migraine Obesity PONV (postoperative nausea and vomiting) Awareness under anesthesia durin g nose surgery Hypertension Syncopal episodes followed by Dr Childers cardiology. Has Loop recorder. Has had syncopal episodes with swallowing food/water. Hoarseness of voice Heart murmur Allergic rhinitis Edema Rosacea Dry eye syndrome Constipation Teeth missing Family History Medical History Relation Name Comments Heart attack Father Stroke Father COPD Mother Arrhythmia Sister 4 Valvular heart disease Sister 5 Relation Name Status Comments Father (Age 74) Mother Sister 1 Alive Sister 2 Alive Sister 3 Alive Sister 4 Sister 5 Social History Tobacco Use Types Packs/Day Years Used Date Smoking Tobacco: Every Day Cigarettes 0.5 40 Passive Smoke Exposure: Past Smokeless Tobacco: Never Tobacco Cessation:Ready to Q uit: Not Asked; Counseling Given: Not Answered Comments:Last cigarette 09/07 approx 0600 Alcohol Use Standard Drinks/Week Comments No 0 (1 standard drink = 0.6 oz pur e alcohol) AUDIT-C Answer Date Recorded Q1: How often do you have a drink containing alc ohol? Never 09/07/2023 Average Number of Drinks Not on file 023 Q3: How often do you have si x or more drinks on one occasion? Never 09/07/2023 Personal Safety Answer Date Recorded Have you ever been in or are you currently in a harmful physical or emotional relationship or is someone making you feel afraid or unsafe? Denies 09/07/2023 Comments No Sex and Gender Information Value Date Recorded Sex Assigned at Not on file Legal Sex Female 11:06 AM STORY WRITER Gender Identity Not on file Sexual Orientation Not on file Obstetrics History Last Filed Vital Signs Vital Sign Reading Time Taken Comments Blood Pressure 112/64 09/26/2024 8:40 AM STORY WRITER Pulse 105 09/26/2024 8:40 AM STORY WRITER Temperature 36.4 ??C (97.5 ??F) 09/07/2023 10:05 AM C DT Respiratory Rate 18 09/15/2023 9:25 AM STORY WRITER Oxygen Saturation 97% 09/26/2024 8:40 AM STORY WRITER Inhaled Oxygen Concentration - - Weight 77.1 kg (170 lb) 09/26/2024 8:40 AM STORY WRITER Height 154.9 cm (5' 1 ) 09/26/2024 8:40 AM STORY WRITER Body Mass Index 32.12 09/26/2024 8:40 AM STORY WRITER Plan of Treatment Health Maintenance Due Date Last Done Comments Breast Cancer Screening-Mammogram 1956 Colon Cancer Screening-Colonoscopy 1955 Depression Screening 1955 Osteoporosis Screening-Bone Density Scan 1955 Hepatitis B Screening 1974 Lung Cancer Screening 2006 Well Visit 65+ 2021 Covid-19 Vaccine ( season) 2024 09/08/2021, 03/05/2021, 02/05/2021 Influenza Vaccine (#1) 2024 , 08/29/2021, 08/26/2020 Fall Risk Assessment 09/07/2024 09/07/2023 DTaP/Tdap/Td Vaccine (2 - Td or Tdap) 09/04/2032 Hepatitis C Screening Completed 10/15/2018 Zoster Vaccine Completed 11/20/2020, 09/21/2020 Pneumococcal vaccine 65+ Completed 01/24/2022 Medical Devices Implanted Type Area Tire Mold Engraver Device Identifier Shelf Expiration Date Model / Serial / Lot Loop Recorder Street [employer] Biomonitor Iii-Left Upper Chest Chest Knee Arthroplasty Right: Knee Left Lower Leg Hardware From Fracture Left: Leg [employer] Inc Os-201 Hemasorb Spatula Wax 2gm Bone Sterile - [id number] Implanted:Qty: 1 on 10/15/2018 by Elvin Palmer MD at [facility] N/A: Spine Cervical [employer] Inc 10/08/2020 OS-201 / / [id number] [employer] 3d Cervical [id number] 7 Deg - [id number] Implanted:Qty: 1 on 10/15/2018 by Elvin Palmer MD at [facility] N/A: Spine Cervical Core Link [id number] 12/02/2022 [id number] / / [id number] Core Link Anodyne 12mm Level 1 Spine Cervical Anterior Plate Bone - [id number] Implanted:Qty: 1 on 10/15/2018 by Elvin Palmer MD at [facility] N/A: Spine Cervical Core Link / / Core Link Anodyne 4mm 14mm Variable Angle Self Tap Spine Cervical Screw - [id number] Implanted:Qty: 4 on 10/15/2018 by Elvin Palmer MD at [facility] N/A: Spine Cervical Core Link / / Screw Bone Biased Angle L14 Mm Od3.5 Mm Cephelad Caudal Nonsterile Posterior Occipital Cervical Thoracic System 3500 Series - [id number] Implanted:Qty: 4 on 01/20/2019 by Elvin Palmer MD at [facility] N/A: Spine Cervical Core Link [id number] / / Screw Set Spinal 3500 Series - [id number] Implanted:Qty: 4 on 01/20/2019 by Elvin Palmer MD at [facility] N/A: Spine Cervical Core Link 14518-56 / / Core Link [id number] [place] 3.5mm 50mm Line Prebent Jin Spinal Nonsterile 3500 Series - [id number] Implanted:Qty: 1 on 01/20/2019 by Elvin Palmer MD at [facility] N/A: Spine Cervical Core Link [id number] / / Core Link [id number] [place] Screw Set 5500 Series - Sna - [id number] Implanted:Qty: 4 on 06/20/2019 by Elvin Palmer MD at [facility] N/A: Back Core Link [id number] / NA / Core Link [id number] [place] 5.5mm 35mm Line Prebent Jin Spinal Nonsterile 5500 Series - Sns - [id number] Implanted:Qty: 2 on 06/20/2019 by Elvin Palmer MD at [facility] N/A: Back Core Link [id number] / NS / Isto [employer] [id number] Inqu Paste Mix Plus Thoracic Medicine Specialist 10cc Bone Graft Hyaluronic Acid Poly - Sna - [id number] Implanted:Qty: 1 on 06/20/2019 by Elvin Palmer MD at [facility] N/A: Back [employer] [id number] 01/19/2021 [id number] / NA / [id number] Core Link [id number] [place] 6.5mm 40mm Spine Pedicle Screw Bone 5500 Series - Sna - [id number] Implanted:Qty: 4 on 06/20/2019 by Elvin Palmer MD at [facility] N/A: Back Core Link [id number] / NA / Cerapedics Inc 700-025 I Factor Allograft Putty Syringe Graft 2.5cc Bone - [id number] Implanted:Qty: 1 on 11/26/2020 by Elvin Palmer MD at [facility] N/A: Spine Cervical Cer[employer] Inc 09/08/2023 700-025 / / [id number] [facility] 3d Cervical [id number] 7 Deg - [id number] Implanted:Qty: 1 on 11/26/2020 by Elvin Palmer MD at [facility] N/A: Spine Cervical Core Link 10/25/2024 [id number] / / [id number] Core Link Anodyne 12mm Level 1 Spine Cervical Anterior Plate Bone - [id number] Implanted:Qty: 1 on 11/26/2020 by Elvin Palmer MD at [facility] N/A: Spine Cervical Core Link / / Core Link Anodyne 4mm 14mm Variable Angle Self Tap Spine Cervical Screw - [id number] Implanted:Qty: 4 on 11/26/2020 by Elvin Palmer MD at [facility] N/A: Spine Cervical Core Link / / Procedures Procedure Name Priority Date/Time Associated Diagnosis Comments DEVICE CHECK - REMOTE Routine 10/27/2024 6:13 PM STORY WRITER NICM (nonischemic cardiomyopathy) (CMS/HCC) (HCC) NSVT (nonsustained ventricular tachycardia) (HCC) SCAN - RADIOLOGY/IMAGING 10/19/2024 DEVICE CHECK - REMOTE Routine 09/26/2024 9:32 AM STORY WRITER NICM (nonischemic cardiomyopathy) (CMS/HCC) (HCC) NSVT (nonsustained ventricular tachycardia) (HCC) HEPATITIS C ANTIBODY STAT 10/15/2018 11:20 AM STORY WRITER from Last 3 Months or Most Recently Relevant to Health Maintenance Results * DEVICE CHECK - REMOTE (10/27/2024 6:13 PM STORY WRITER) Anatomical Region Laterality Modality Other Narrative 10/28/2024 8:21 AM STORY WRITER [employer] Bio-monitor III Loop Recorder. Dx; Syncope, PSVT, AT, RVOT VT s/p ablation. DOI 03/05/2022-[facility]. [employer] remote monitoring. Unscheduled ILR remote due to patient reported having a bad dizzy spell while watching TV on 10/26/24, between 7:00-10:00 pm, and felt presyncopal. Normal device function. Battery function-Ok. Presenting rhythm: VS, regular (SR). Medications: Norvasc. No auto or patient recorded episodes noted. Counters since last scheduled transmission on 09/26/2024. --7 Tachy (total: 15), egm's ST-SVT @ 150 bpm. --3 Sudden rate drop (total: 7), egm's Sinus with intermittent 2:1 HB and SB 30-50 bpm with 2 1/2 second pause. --0 Bradycardia (total: 191) --0 Pause (total: 19) --0 Symptom (total: 0) --0 AF (total: 1) Ectopy beats: 933. See scanned report. [employer] remote f/u 11/14/2024. Shelley Looney RN us Vy Pierce MD [facility] PRO CEDURES Final Result * SCAN - RADIOLOGY/IMAGING (10/19/2024) Anatomical Region Laterality Modality Other us Jessica Shoemaker NP Final Res ult * DEVICE CHECK - REMOTE (09/26/2024 9:32 AM STORY WRITER) Anatomical Region Laterality Modality Other Narrative 10/28/2024 9:[address] [employer] Bio-monitor III Loop Recorder. Dx; Syncope, PSVT, AT, RVOT VT s/p ablation. DOI 03/05/2022-[facility]. [employer] remote monitoring. Routine ILR remote. Normal device function. Battery function-Ok. Presenting rhythm: VS, regular (SR). Medications: Norvasc, Liptior. Counters since last scheduled transmission on 08/15/2024. --6 Tachy (total: 14), egm's ST-SVT @ 150 bpm. --0 Sudden rate drop (total: 4) --2 Bradycardia (total: 190) --0 Pause (total: 19) --0 Symptom (total: 0) --0 AF (total: 1) Ectopy beats: 549. See scanned report. [employer] remote f/u 11/14/2024. Shelley Looney, LARISSA us Vy Pierce MD [facility] C[facility] PRO CEDURES Final Result * Hepatitis C antibody (10/15/2018 11:20 AM STORY WRITER) Hep C Ab Non-Reactiv e Non-Reactiv e [facility] Blood specimen (specimen) 10/15/2018 11:20 AM STORY WRITER 10/15/2018 11:41 [address] [facility] - 10/15/2018 12:25 PM STORY WRITER us Notinfile Unknown LAB MICROBIOLOGY - GENERAL ORD ERABLES Final Result [facility] [address] Department [place] [address] from Last 3 Months or Most Recently Relevant to Health Maintenance Insurance MEDICARE A[employer]NA MEDICARE [employer]NA Mobile MEDICARE AETNA SENIOR SUPPLEMENT Advance Directives For more information, please contact: [phone] * Full Code (Latest Code Status on File) Date Activated Date Inactivated Comments 09/07/2023 10:10 AM 09/07/2023 2:44 PM * Full Code Date Activated Date Inactivated Comments 06/20/2019 12:01 PM 06/20/2019 6:34 PM * Full Code Date Activated Date Inactivated Comments 10/15/2018 2:08 PM 10/15/2018 4:39 PM * Full Code Date Activated Date Inactivated Comments 07/16/2018 2:30 PM 07/16/2018 6:36 PM Care Teams [employer] Relationship Specialty Start Date End Date Per Samson MD PCP - General Family Practice 06/01/23 Coretta Childers MD Consulting Physician Cardiology 08/28/23 Tima Henson MD [address] [place] [address] Consulting Physician Otolaryngology 08/28/23
--- OUTSIDE RECORDS SUMMARY | 2024-12-07 08:09 | XMS_ITS | Referral Summary ---
Author Organization [facility] [address] [facility] [address] Address [address] [place] [address] Care Team Providers Care Quantity Surveyor Name Role Phone Per Samson MD Primary Care Provider [phone] Coretta Childers MD Unavailable [phone] Tima Henson MD Unavailable [phone] Encounters Date Type Department Care Team Description 11/25/2024 Telephone [facility] [address] [place] [address] Jessica Shoemaker, JOE 11/18/2024 Orders Only [facility] [address] [place] [address] [place] [phone] Vy Pierce MD Status post placement of implantable loop recorder (Primary Dx); Paroxysmal supraventricular tachycardia (HCC); History of radiofrequency ablation (RFA) procedure for cardiac arrhythmia; Syncope and collapse; RVOT ventricular tachycardia (HCC) 11/14/2024 9:15 AM WHIPPED TOPPING FINISHER Ancillary Procedure [facility] [address] [place] [address] [place] [phone] NICM (nonischemic cardiomyopathy) (CMS/HCC) (HCC); NSVT (nonsustained ventricular tachycardia) (HCC) 10/28/2024 Telephone [facility] [address] [place] [address] [place] [phone] Jessica Shoemaker NP 10/27/2024 1:00 PM WHIPPED TOPPING FINISHER Ancillary Procedure [facility] [address] [place] [address] [place] [phone] Syncope and collapse (Primary Dx); NICM (nonischemic cardiomyopathy) (CMS/HCC) (HCC); NSVT (nonsustained ventricular tachycardia) (HCC); Status post placement of implantable loop recorder; RVOT ventricular tachycardia (HCC); Paroxysmal supraventricular tachycardia (HCC) 10/27/2024 Orders Only [facility] [address] [place] [address] [place] [phone] Jessica Shoemaker NP Dizziness of unknown etiology 10/26/[address] [phone] Vy Pierce MD 10/19/2024 Orders Only [facility] Health Information Management [address] [place] [address] Jessica Shoemaker NP 10/10/[address] [phone] Jessica Shoemaker NP Dizziness 09/26/2024 Orders Only [facility] [address] [place] [address] [place] [phone] Vy Pierce MD NICM (nonischemic cardiomyopathy) (CMS/HCC) (HCC) (Primary Dx); NSVT (nonsustained ventricular tachycardia) (HCC) 09/26/2024 8:15 AM WHIPPED TOPPING FINISHER Ancillary Procedure [facility] [address] [place] [address] [place] [phone] Paroxysmal supraventricular tachycardia (HCC) (Primary Dx); NICM (nonischemic cardiomyopathy) (CMS/HCC) (HCC); NSVT (nonsustained ventricular tachycardia) (HCC); Status post placement of implantable loop recorder; RVOT ventricular tachycardia (HCC); Syncope and collapse 09/26/2024 8:30 AM WHIPPED TOPPING FINISHER Office Visit [facility] [address] [place] [address] Jessica Shoemaker NP Syncope and collapse (Primary Dx); Status post placement of implantable loop recorder; Lower extremity edema; cardiomyopathy; RVOT ventricular tachycardia (HCC); History of radiofrequency ablation (RFA) procedure for cardiac arrhythmia from Last 3 Months Allergies Active Allergy Reactions Criticality Noted Date [...] mouth 2 (two) times a day Active iigifpfz-wpi-DT-ly copen-lutein 0.4-300-250 mg-mcg-mcg tabletIndications: Vitamin Deficiency Prevention [...] MINUTES AFTER METOLAZONE 90 tablet 1 08/29/20 Active traMADoL (ULTRAM) 50 mg tablet Take by mouth every 8 (eight) hours as needed 08/30/20 24 Active Active Problems Problem Noted Date Diagnosed Date Vocal cord nodule 08/28/2023 Hoarseness 08/28/2023 Assessment & Plan (08/28/2023 2:02 PM CDT): She has hoarseness due to vocal polyps. We are scheduling her for surgery. Vocal cord polyps 08/28/2023 Assessment & Plan (09/21/2023 9:12 AM WHIPPED TOPPING FINISHER): She is doing pretty well. Feels like [...] and proceed with this. Sinus node dysfunction (CMS/HCC) 06/08/2023 Morbid (severe) obesity due to excess calories 0 06/01/2023 Body mass index 40.0-44.9, adult (CMS/HCC) 06/01 Sleep-disordered breathing 09/07/2022 Status post placement of implantable loop record er 03/07/2022 Overview (03/07/2022): [employer] Bio-monitor III Loop Recorder. Dx; Syncope, PSVT, AT, RVOT VT s/p ablation. DOI 03/05/2022-[facility]. [employer] remote monitoring. Dizziness 08/19/2021 Lower extremity edema [...] (10/26/2020): Added automatically from request for surgery [id number] Migraine 08/10/2020 Assessment & Plan (08/10/2020 2:22 [...] & Plan (03/27/2020 1:47 PM CDT): Ms. Palam has piriformis syndrome on the right. I [...] neuralgia. 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 Assessment & Plan (10/02/2020 1:29 PM WHIPPED TOPPING FINISHER): Ms. Palma continues to do well clinically after posterior lumbar decompression fusion at L4-5. She has good alignment. There is no lucency around the hardware. We will continue to follow this over time. Assessment & Plan (11/30/2019 1:51 PM WHIPPED TOPPING FINISHER): Ms. Palma reports persistent numbness in her [...] (05/20/2019): Added automatically from request for surgery [id number] Assessment & Plan (01/22/2023 12:27 PM CDT): [...] physician. Assessment & Plan (01/08/2021 12:53 PM WHIPPED TOPPING FINISHER): Ms. Palma does not have pain referable [...] time. Assessment & Plan (10/02/2020 1:29 PM WHIPPED TOPPING FINISHER): Ms. Palma was improved after cervical decompression [...] hour to stretch. FOLLOW UP APPT: With [facility] in 4 weeks with AP/LAT Cervical spine films. Assessment & Plan (11/24/2018 11:40 AM WHIPPED TOPPING FINISHER): Patient has new onset symptoms of her [...] patient to schedule on her own at [facility]. We will await the CD to be mailed to our office for Dr. Palmer to review and provide further recommendations. She is to continue the same activity restrictions as outlined prior to surgery. Neuropathic pain 11/24/2018 Assessment & Plan (11/24/2018 11:42 AM WHIPPED TOPPING FINISHER): For her neuropathic pain and would have [...] (12/16/2018): Added automatically from request for surgery [id number] Cervical spinal stenosis 09/27/2018 Overview (09/27/2018): Added automatically from request for surgery [id number] HNP (herniated nucleus pulposus), lumbar 07/13/2018 03/02/2019 Overview (07/13/2018): Added automatically from request for surgery [id number] Immunizations Name Administration Dates Next Due Pfizer SARS-CoV-2 Monovalent Vaccination (12+ Yrs) PURPLE 09/08/2021,03/05/2021,02/05/2021 Social History Tobacco Use Types Packs/Day [...] on file Legal Sex Female 11:06 AM WHIPPED TOPPING FINISHER Gender Identity Not on file Sexual Orientation Not on file Last Filed Vital Signs Vital Sign Reading Time Taken Comments Blood Pressure 112/64 09/26/2024 8:40 AM WHIPPED TOPPING FINISHER Pulse 105 09/26/2024 8:40 AM WHIPPED TOPPING FINISHER Temperature 36.4 ??C (97.5 ??F) 09/07/2023 10:05 AM C DT Respiratory Rate 18 09/15/2023 9:25 AM WHIPPED TOPPING FINISHER Oxygen Saturation 97% 09/26/2024 8:40 AM WHIPPED TOPPING FINISHER Inhaled Oxygen Concentration - - Weight 77.1 kg (170 lb) 09/26/2024 8:40 AM WHIPPED TOPPING FINISHER Height 154.9 cm (5' 1 ) 09/26/2024 8:40 AM WHIPPED TOPPING FINISHER Body Mass Index 32.12 09/26/2024 8:40 AM WHIPPED TOPPING FINISHER Plan of Treatment Not on file Medical Devices Implanted Type Area Longshore Equipment Operator Device Identifier Shelf Expiration Date Model / Serial / Lot Loop Recorder Das[employer] Performance Biomonitor Iii-Left Upper Chest Chest Knee Arthroplasty Right: Knee Left Lower Leg Hardware From Fracture Left: Leg [employer] Inc Os-201 Hemasorb Spatula Wax 2gm Bone Sterile - [id number] Implanted:Qty: 1 on 10/15/2018 by Elvin Palmer MD at [facility] N/A: Spine Cervical [employer] Inc 10/08/2020 OS-201 / / [id number] Cage [employer] 3d Cervical [id number] 7 Deg - [id number] Implanted:Qty: 1 on 10/15/2018 by Elvin Palmer MD at [facility] N/A: Spine Cervical Core Link [id number] 12/02/2022 [id number] / / [id number] Core Link Anodyne 12mm Level 1 Spine Cervical Anterior Plate Bone - [id number] Implanted:Qty: 1 on 10/15/2018 by Elvin Palmer MD at [facility] N/A: Spine Cervical Core Link / / Core Link [id number] Anodyne 4mm 14mm Variable Angle Self Tap Spine Cervical Screw - [id number] Implanted:Qty: 4 on 10/15/2018 by Elvin Palmer MD at [facility] N/A: Spine Cervical Core Link [id number] / / Screw Bone Biased Angle L14 Mm Od3.5 Mm Cephelad Caudal Nonsterile Posterior Occipital Cervical Thoracic System 3500 Series - [id number] Implanted:Qty: 4 on 01/20/2019 by Elvin Palmer MD at [facility] N/A: Spine Cervical Core Link [id number] / / Screw Set Spinal 3500 Series - [id number] Implanted:Qty: 4 on 01/20/2019 by Elvin Palmer MD at [facility] N/A: Spine Cervical Core Link 52540-74 / / Core Link [id number] Wiergate 3.5mm 50mm Line Prebent Jin Spinal Nonsterile 3500 Series - [id number] Implanted:Qty: 1 on 01/20/2019 by Elvin Palmer MD at [facility] N/A: Spine Cervical Core Link [id number] / / Core Link [id number] Wiergate Screw Set 5500 Series - Sna - [id number] Implanted:Qty: 4 on 06/20/2019 by Elvin Palmer MD at [facility] N/A: Back Core Link 43712-06 / NA / Core Link [id number] Wiergate 5.5mm 35mm Line Prebent Jin Spinal Nonsterile 5500 Series - Sns - [id number] Implanted:Qty: 2 on 06/20/2019 by Elvin Palmer MD at [facility] N/A: Back Core Link [id number] / NS / Isto [employer] [id number] Inqu Paste Mix Plus Rental Sales Agent 10cc Bone Graft Hyaluronic Acid Poly - Sna - [id number] Implanted:Qty: 1 on 06/20/2019 by Elvin Palmer MD at [facility] N/A: Back [employer] [id number] 01/19/2021 [id number] / NA / [id number] Core Link 20772-37 Wiergate 6.5mm 40mm Spine Pedicle Screw Bone 5500 Series - Sna - [id number] Implanted:Qty: 4 on 06/20/2019 by Elvin Palmer MD at [facility] N/A: Back Core Link 05462-89 / NA / Cerapedics Inc 700-025 I Factor Allograft Putty Syringe Graft 2.5cc Bone - [id number] Implanted:Qty: 1 on 11/26/2020 by Elvin Palmer MD at [facility] N/A: Spine Cervical [employer] Inc 09/08/2023 700-025 / / [id number] Cage [employer] 3d Cervical 14.8h00z0ip 7 Deg - [id number] Implanted:Qty: 1 on 11/26/2020 by Elvin Palmer MD at [facility] N/A: Spine Cervical Core Link 10/25/2024 [id number] / / [id number] Core Link Anodyne 12mm Level 1 Spine Cervical Anterior Plate Bone - [id number] Implanted:Qty: 1 on 11/26/2020 by Elvin Palmer MD at [facility] N/A: Spine Cervical Core Link / / Core Link Anodyne 4mm 14mm Variable Angle Self Tap Spine Cervical Screw - [id number] Implanted:Qty: 4 on 11/26/2020 by Elvin Palmer MD at [facility] N/A: Spine Cervical Core Link / / Procedures Procedure Name Priority Date/Time Associated Diagnosis Comments DEVICE CHECK - REMOTE Routine 10/27/2024 6:13 PM WHIPPED TOPPING FINISHER NICM (nonischemic cardiomyopathy) (CMS/HCC) (HCC) NSVT (nonsustained ventricular tachycardia) (HCC) SCAN - RADIOLOGY/IMAGING 10/19/2024 DEVICE CHECK - REMOTE Routine 09/26/2024 9:32 AM WHIPPED TOPPING FINISHER NICM (nonischemic cardiomyopathy) (CMS/HCC) (HCC) NSVT (nonsustained ventricular tachycardia) (HCC) HEPATITIS C ANTIBODY STAT 10/15/2018 11:20 AM WHIPPED TOPPING FINISHER from Last 3 Months or Most Recently Relevant to Health Maintenance Results * DEVICE CHECK - REMOTE (10/27/2024 6:13 PM WHIPPED TOPPING FINISHER) Anatomical Region Laterality Modality Other Narrative 10/28/2024 8:21 AM WHIPPED TOPPING FINISHER [employer] Bio-monitor III Loop Recorder. Dx; Syncope, PSVT, AT, RVOT VT s/p ablation. DOI 03/05/2022-[facility]. [employer] remote monitoring. Unscheduled ILR remote due to [...] [employer] remote f/u 11/14/2024. Shelley Looney RN Vy Pierce MD [facility] PRO CEDURES Final Result * SCAN - RADIOLOGY/IMAGING (10/19/2024) Anatomical Region Laterality Modality Other Jessica Shoemaker [facility] Final Res ult * DEVICE CHECK - REMOTE (09/26/2024 9:32 AM WHIPPED TOPPING FINISHER) Anatomical Region Laterality Modality Other Narrative 10/28/2024 9:20 AM WHIPPED TOPPING FINISHER [employer] Bio-monitor III Loop Recorder. Dx; Syncope, PSVT, AT, RVOT VT s/p ablation. DOI 03/05/2022-[facility]. [employer] remote monitoring. Routine ILR remote. Normal device [...] [employer] remote f/u 11/14/2024. Shelley Looney RN Vy Pierce MD [facility] C[facility] PRO CEDURES Final Result * Hepatitis C antibody (10/15/2018 11:20 AM WHIPPED TOPPING FINISHER) Hep C Ab Non-Reactiv e [facility]activ e [facility] Blood specimen (specimen) 10/15/2018 11:20 AM WHIPPED TOPPING FINISHER 10/15/2018 11:41 AM WHIPPED TOPPING FINISHER Narrative [facility] - 10/15/2018 12:25 PM WHIPPED TOPPING FINISHER us Notinfile Unknown LAB MICROBIOLOGY - GENERAL ORD ERABLES Final Result [facility] [address] Department [place] [address] from Last 3 Months or Most Recently Relevant to Health Maintenance Insurance [facility] MEDICARE AETNA MEDICARE AET SENIOR SUPPLEMENT Advance Directives For more information, please contact: [phone] * Full Code (Latest Code Status on File) Date Activated Date Inactivated Comments 09/07/2023 10:10 AM 09/07/2023 2:44 PM * Full Code Date Activated Date Inactivated Comments 06/20/2019 12:01 PM 06/20/2019 6:34 PM * Full Code Date Activated Date Inactivated Comments 10/15/2018 2:08 PM 10/15/2018 4:39 PM * Full Code Date Activated Date Inactivated Comments 07/16/2018 2:30 PM 07/16/2018 6:36 PM Care Teams Quantity Surveyor Relationship Specialty Start Date End Date Per Samson MD PCP - General Family Practice 06/01/23 Coretta Childers MD Consulting Physician Cardiology 08/28/23 Tima Henson MD [address] [place] [address] Consulting Physician Otolaryngology 08/28/23
== END 2024-12-07 08:01 | disposition home or self-care (01) ==
PROVIDERS: PCP Family Medicine; Visit Provider Family Medicine
DX: R91.8 Other nonspecific abnormal finding of lung field (principal); M89.9 Disorder of bone, unspecified; R16.0 Hepatomegaly, not elsewhere classified; N12 Tubulo-interstitial nephritis, not specified as acute or chronic
CPT/HCPCS: 71260; Q9967

== ENCOUNTER 2024-12-09 10:22 | Inpatient (IN) | payer MEDICARE, SELFPAY ==
[2024-12-09] VITALS (10 sets, daily range): BP systolic 98–125; BP diastolic 50–78; PULSE 85–99; RESP 16; TEMP 36.4–36.7; O2SAT 98–100
--- NOTE | ~2024-12-09 | CT_ITS ---
EXAMINATION: CT chest abdomen pelvis w con DATE: 12/09/2024 15:32 INDICATION: Chest pain. Abdominal pain. TECHNIQUE: Computed tomography (CT) of the chest, abdomen, and pelvis was performed with 100 mL Omnip aque 350 intravenous contrast. Automated exposure control and iterative reconstruction technique were employed. The dose-length product was 1063.79 mGy-cm. COMPARISON: CT chest 12/07/2024 FINDINGS: CHEST CT: There is mild scarring at the lung apices. There is a left posterior diaphragmatic hernia containing fat. There are nodules in left lower lobe measuring up to 9 mm. There is left hilar and mediastinal l ymphadenopathy. No pleural effusion. The heart size is normal. There are coronary artery calcificatio ns. No pericardial effusion. There is electronic implant in left anterior chest wall. There are martinez es of anterior fusion procedure in cervical spine. There are multiple mixed lytic and sclerotic lesio ns in the bones. There is old compression fracture of T1. There are mild pathologic compression fract ures of T2, T9, and T11. ABDOMEN/PELVIS CT: There are 5 hypodense masses in the liver measuring up to 2.1 cm. The gallbladder, spleen, pancreas, and adrenal glands are normal. There are cysts in the kidneys measuring up to 2.8 cm on the right. Th ere are 12 mm and 3 mm stones in right kidney. There is a striated nephrogram in left kidney. There a re 2 stones in left kidney with the larger measuring 11 mm. There is urothelial thickening in left re nal pelvis. The appendix is normal. There are scattered diverticula in the colon. There is a web of f istulas containing gas between portions of the sigmoid colon. No drainable fluid. There are no pathol ogically enlarged lymph nodes. There is no ascites. There are scattered lytic and sclerotic lesions i n the bones. There are changes of anterior and posterior fusion at L4-L5 with pedicle screws. IMPRESSION: 1. Bone lesions, consistent with metastatic disease. Consider CT-guided biopsy of the right ilium. 2. Left lung nodules and left hilar and mediastinal lymphadenopathy, which may be infection or metast atic disease. 3. Left-sided pyelonephritis. 4. Liver masses measuring up to 2.1 cm suspicious for abscesses. 5. 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 No drainable fluid. Reviewed, dictated and finalized at location A. [facility] IMPRESSION: 1. Bone lesions, consistent with metastatic disease. Consider CT-guided biopsy of the right ilium. 2. Left lung nodules and left hilar and mediastinal lymphadenopathy, which may be infection or metastatic disease. 3. Left-sided pyelonephritis. 4. Liver masses measuring up to 2.1 cm suspicious for abscesses. 5. Chronic sigmoid diverticulitis with web of fistulas containing gas between p ortions of the sigmoid colon. No drainable fluid.
--- NOTE | ~2024-12-09 | MR_ITS ---
EXAMINATION: MR pelvis wo/w con DATE: 12/11/2024 08:04 INDICATION: Suspected colovesical fistula TECHNIQUE: Magnetic resonance imaging (MRI) of the pelvis was performed without and with 14 mL Multih ance intravenous contrast. Sequences included axial and coronal T2-weighted SS FSE, coronal 2D FIESTA , axial T1-weighted FSPGR, axial dual-echo T1-weighted FSPGR and axial T1 weighted LAVA. Postcontra st sequences included a time course axial T1-weighted LAVA and a delayed coronal T1-weighted FS FSE . COMPARISON: CT dated 12/09/2024 FINDINGS: Prominent wall thickening and inflammatory stranding surrounding an 8 cm length of sigmoid colon whic h could be due to focal colitis, diverticulitis or colon cancer. There is a tract of isointense an en hancing soft tissue extending through the fat between the segment of colon in the more caudal left si de of the cervix and more cephalad loop of small bowel. Some gas is seen along this tract on the prio r CT with appearance suggestive of an enterocolic and/or colovaginal fistula. No similar appearing tr act extending to the referring partially decompressed bladder. No evident gas within the bladder. Ant everted uterus is unremarkable. No free fluid in the pelvis. No pathologically enlarged pelvic or ing uinal lymphadenopathy. On the coronal images there are a few small T2 hyperintense lesions in the cau solomon aspect of the right hepatic lobe corresponding to the low-density lesions which are better apprec iated on the prior CT. Also evident on the coronal images is persistent moderate left hydroureteronep hrosis with greater tapering abruptly at the transition point in the left hemipelvis where the ureter approaches the stranding surrounding the suspected fistula. There are T2 hyperintense and enhancing bone lesion suspicious for metastatic disease at the left iliac crest, right posterior iliac spine an d inferior left sacral ala. IMPRESSION: 1. Segmental wall thickening the sigmoid colon with surrounding inflammatory stranding which could be due to focal colitis, diverticulitis or potentially colon cancer. 2. Tract of soft tissue density extending between this segment of colon, the region of the cervix and adjacent loop of small bowel consistent with an enterocolic and/or colovaginal fistula. 3. 3 enhancing bone lesions in the pelvis suspicious for metastatic disease. 4. A few T2 hyperintense lesions in the inferior right hepatic lobe with appearance on earlier MRI of the abdomen suspicious for hepatic abscesses. 5. Moderate left hydroureteronephrosis with tapering of the ureter at the transition point located ne ar the suspected fistula and suggesting stricture related to the surrounding inflammation. : Reviewed, dictated and finalized at location A. [facility] IMPRESSION: 1. Segmental wall thickening the sigmoid colon with surrounding inflammatory st randing which could be due to focal colitis, diverticulitis or potentially colo n cancer. 2. Tract of soft tissue density extending between this segment of colon, the re gion of the cervix and adjacent loop of small bowel consistent with an enteroco lic and/or colovaginal fistula. 3. 3 enhancing bone lesions in the pelvis suspicious for metastatic disease. 4. A few T2 hyperintense lesions in the inferior right hepatic lobe with appear ance on earlier MRI of the abdomen suspicious for hepatic abscesses. 5. Moderate left hydroureteronephrosis with tapering of the ureter at the trans ition point located near the suspected fistula and suggesting stricture related to the surrounding inflammation. :
--- NOTE | ~2024-12-09 | CT_ITS ---
EXAMINATION: CT biopsy bone deep DATE: 12/12/2024 14:08 INDICATION: Leg lesion of right fifth rib. TECHNIQUE: The procedure including the risks, benefits, and alternatives was discussed with the patie nt. Risks discussed included bleeding and infection. The patient verbalized understanding of the risk s and agreed to proceed. The skin overlying the liver was prepped and draped in usual sterile fashio n. Anesthetic was administered with 1% lidocaine subcutaneously. A 16 gauge outer needle was advanc ed under CT guidance to the right fifth rib. An 18 gauge core biopsy needle was then used to obtain 3 core biopsy specimens. The mA was adjusted according to patient size. Iterative reconstruction techn ique was employed. The dose-length product was 162.90 mGy-cm. The needle was removed and the entry si te was cleaned and dressed. There were no immediate complications. FINDINGS: CT images demonstrate the outer needle tip adjacent to a 17 mm lytic lesion in right fifth rib. IMPRESSION: 1. CT-guided core needle biopsy of a lytic lesion in right fifth rib. Reviewed, dictated and finalized at location A. SPECIALIST
--- OUTSIDE RECORDS SUMMARY | 2024-12-09 10:36 | XMS_ITS | Clinical Summary ---
Author Organization [facility] Address [facility]. [place], [place] [address] [place] [address] Care Team Providers Care Welder Assistant Name Role Phone Zafar Reddy MD Primary Care Provider [phone] Allergies Active Allergy Reactions Criticality Noted Date [...] (11/12/2022): Added automatically from request for surgery [id number] Social History Tobacco Use Types Packs/Day Years [...] this topic Insurance MEDICARE AET Care Teams Welder Assistant Relationship Specialty Start Date End Date Zafar Reddy MD [address] [place] [id number] PCP - General 05/10/12
--- OUTSIDE RECORDS SUMMARY | 2024-12-09 10:36 | XMS_ITS | Encounter Summary ---
Author Organization [facility] Address [address] [place] [address] Care Team Providers Care Meatcutter Name Role Phone Edy Aviles DO Primary Care Provider [phone] Encounter Details Date Type Department Care Team (Late st Contact Info) Description 02/24/2024 Lab Requisition [facility] - DermPath Lab [address] [facility], [facility] [place] [id number] Israel [place] [address] Social History Tobacco Use Types Packs/Day Years [...] CDT) Case Report Dermatopathology Report ? Case: [id number] ? Authorizing Provider: ??Israel Lang MD ?Collected: [...] five pieces in aggregate shave biopsy measuring [id number] mm. Jar 0. 1:41 PM T DERMATOPATHOLOGY [...] characteristic determined by the Dermatopathology Laboratory at [facility], directed by Dr. Yessi Jackman. These tests need not be, and therefore are not, approved by the [place] Food and Drug Administration. The tests are used for clinical purposes. Billing Codes Specimen Charges Stain Charges 04688 [id number] 1 1 1 1:41 PM T DERMATOPATHOLOGY [...] - PATHOLOGY/CYTO LOGY ORDERABLES DERMATOPATHOLOGY LABORATORY [facility] - Department of Dermatology [facility] Medicine [address] [place] [address], [address] [phone] documented in this encounter Visit Diagnoses Not on filedocumented in this encounter Care Teams Meatcutter Relationship Specialty Start Date End Date Edy Aviles DO [address] [place], [place] [id number] PCP - General 06/17/22 documented as of this encounter
--- OUTSIDE RECORDS SUMMARY | 2024-12-09 10:36 | XMS_ITS | Referral Summary ---
Author Organization [facility] [address] [facility] [address] Address [address] [place] [address] Care Team Providers Care National Account Representative Name Role Phone Per Samson MD Primary Care Provider [phone] Coretta Childers MD Unavailable [phone] Tima Henson MD Unavailable [phone] Encounters Date Type Department Care Team Description 11/25/2024 Telephone [facility] [address] [place] [address] Jessica Shoemaker NP 11/18/2024 Orders Only [facility] [address] [place] [phone] Vy Pierce MD Status post placement of implantable loop recorder (Primary Dx); Paroxysmal supraventricular tachycardia (HCC); History of radiofrequency ablation (RFA) procedure for cardiac arrhythmia; Syncope and collapse; RVOT ventricular tachycardia (HCC) 11/14/2024 9:15 AM CASE FOLDER Ancillary Procedure [facility] [address] [place] [phone] Status post placement of implantable loop recorder (Primary Dx); NICM (nonischemic cardiomyopathy) (CMS/HCC) (HCC); NSVT (nonsustained ventricular tachycardia) (HCC) 10/28/2024 Telephone [facility] [address] [place] [address] Jessica Shoemaker NP 10/27/2024 1:00 PM CASE FOLDER Ancillary Procedure [facility] [address] [place] [address] [place] [phone] Syncope and collapse (Primary Dx); NICM (nonischemic cardiomyopathy) (CMS/HCC) (HCC); NSVT (nonsustained ventricular tachycardia) (HCC); Status post placement of implantable loop recorder; RVOT ventricular tachycardia (HCC); Paroxysmal supraventricular tachycardia (HCC) 10/27/2024 Orders Only [facility] [address] [place] [address] [address] [place] [phone] Jessica Shoemaker NP Dizziness of unknown etiology 10/26/2024 Telephone [facility] [address] [place] [address] [place] [phone] Vy Pierce MD 10/19/2024 Orders Only [facility] Health Information Management [address] [place] [address] Jessica Shoemaker NP 10/10/[address] [place] [phone] Jessica Shoemaker NP Dizziness 09/26/2024 Orders Only [facility] [address] [place] [address] [place] [phone] Vy Pierce MD NICM (nonischemic cardiomyopathy) (CMS/HCC) (HCC) (Primary Dx); NSVT (nonsustained ventricular tachycardia) (HCC) 09/26/2024 8:15 AM CASE FOLDER Ancillary Procedure [facility] [address] [place] [address] [place] [phone] Paroxysmal supraventricular tachycardia (HCC) (Primary Dx); NICM (nonischemic cardiomyopathy) (CMS/HCC) (HCC); NSVT (nonsustained ventricular tachycardia) (HCC); Status post placement of implantable loop recorder; RVOT ventricular tachycardia (HCC); Syncope and collapse 09/26/2024 8:30 AM CASE FOLDER Office Visit [facility] [address] [place] [address] Jessica Shoemaker NP Syncope and [...] mouth 2 (two) times a day Active famyryjh-lsl-CM-ly copen-lutein 0.4-300-250 mg-mcg-mcg tabletIndications: Vitamin Deficiency Prevention [...] 08/28/2023 Assessment & Plan (09/21/2023 9:12 AM CASE FOLDER): She is doing pretty well. Feels like [...] implantable loop record er 03/07/2022 Overview (03/07/2022): [employer] Bio-monitor III Loop Recorder. Dx; Syncope, PSVT, AT, RVOT VT s/p ablation. DOI 03/05/2022-[facility]. Biotronik remote monitoring. Dizziness 08/19/2021 Lower extremity [...] (10/26/2020): Added automatically from request for surgery [id number] Migraine 08/10/2020 Assessment & Plan (08/10/2020 2:22 [...] neuralgia. Assessment & Plan (11/30/2019 1:53 PM CASE FOLDER): Ms. Palma has occipital neuralgia with reproduction [...] less. Assessment & Plan (10/02/2020 1:29 PM CASE FOLDER): Ms. Palma continues to do well clinically after posterior lumbar decompression fusion at L4-5. She has good alignment. There is no lucency around the hardware. We will continue to follow this over time. Assessment & Plan (11/30/2019 1:51 PM CASE FOLDER): Ms. Palma reports persistent numbness in her [...] (05/20/2019): Added automatically from request for surgery [id number] Assessment & Plan (01/22/2023 12:27 PM CDT): [...] physician. Assessment & Plan (01/08/2021 12:53 PM CASE FOLDER): Ms. Palma does not have pain referable [...] time. Assessment & Plan (10/02/2020 1:29 PM CASE FOLDER): Ms. Palma was improved after cervical decompression [...] hour to stretch. FOLLOW UP APPT: With OUTPATIENT CODING SPECIALIST in 4 weeks with AP/LAT Cervical spine films. Assessment & Plan (11/24/2018 11:40 AM CASE FOLDER): Patient has new onset symptoms of her [...] patient to schedule on her own at [facility]. We will await the CD to be mailed to our office for Dr. Palmer to review and provide further recommendations. She is to continue the same activity restrictions as outlined prior to surgery. Neuropathic pain 11/24/2018 Assessment & Plan (11/24/2018 11:42 AM CASE FOLDER): For her neuropathic pain and would have [...] (12/16/2018): Added automatically from request for surgery [id number] Cervical spinal stenosis 09/27/2018 Overview (09/27/2018): Added automatically from request for surgery [id number] HNP (herniated nucleus pulposus), lumbar 07/13/2018 03/02/2019 Overview (07/13/2018): Added automatically from request for surgery [id number] Immunizations Name Administration Dates Next Due Pfizer [...] on file Legal Sex Female 11:06 AM CASE FOLDER Gender Identity Not on file Sexual Orientation Not on file Last Filed Vital Signs Vital Sign Reading Time Taken Comments Blood Pressure 112/64 09/26/2024 8:40 AM CASE FOLDER Pulse 105 09/26/2024 8:40 AM CASE FOLDER Temperature 36.4 ??C (97.5 ??F) 09/07/2023 10:05 AM C DT Respiratory Rate 18 09/15/2023 9:25 AM CASE FOLDER Oxygen Saturation 97% 09/26/2024 8:40 AM CASE FOLDER Inhaled Oxygen Concentration - - Weight 77.1 kg (170 lb) 09/26/2024 8:40 AM CASE FOLDER Height 154.9 cm (5' 1 ) 09/26/2024 8:40 AM CASE FOLDER Body Mass Index 32.12 09/26/2024 8:40 AM CASE FOLDER Plan of Treatment Not on file Medical Devices Implanted Type Area Mechanical Engineering Lecturer Device Identifier Shelf Expiration Date Model / Serial / Lot Loop Recorder Biotronik Biomonitor Iii-Left Upper Chest Chest Knee Arthroplasty Right: Knee Left Lower Leg Hardware From Fracture Left: Leg [employer] Inc Os-201 Hemasorb Spatula Wax 2gm Bone Sterile - [id number] Implanted:Qty: 1 on 10/15/2018 by Elvin Palmer MD at [facility] N/A: Spine Cervical [employer] Inc 10/08/2020 OS-201 / / [id number] [employer] 3d Cervical [id number] 7 Deg - [id number] Implanted:Qty: 1 on 10/15/2018 by Elvin Palmer MD at [facility] N/A: Spine Cervical Core Link [id number] 12/02/2022 [id number] / / [id number] Core Link Anodyne 12mm Level 1 Spine Cervical Anterior Plate Bone - [id number] Implanted:Qty: 1 on 10/15/2018 by Evlin Palmer MD at [facility] N/A: Spine Cervical Core Link / / Core Link Anodyne 4mm 14mm Variable Angle Self Tap Spine Cervical Screw - [id number] Implanted:Qty: 4 on 10/15/2018 by Elvin Palmer MD at [facility] N/A: Spine Cervical Core Link [id number] / / Screw Bone Biased Angle L14 Mm Od3.5 Mm Cephelad Caudal Nonsterile Posterior Occipital Cervical Thoracic System 3500 Series - [id number] Implanted:Qty: 4 on 01/20/2019 by Elvin Palmer MD at [facility] N/A: Spine Cervical Core Link 19274-64 / / Screw Set Spinal 3500 Series - [id number] Implanted:Qty: 4 on 01/20/2019 by Elvin Palmer MD at [facility] N/A: Spine Cervical Core Link 51904-10 / / Core Link [id number] [place] 3.5mm 50mm Line Prebent Jin Spinal Nonsterile 3500 Series - [id number] Implanted:Qty: 1 on 01/20/2019 by Elvin Palmer MD at [facility] N/A: Spine Cervical Core Link [id number] / / Core Link [id number] [place] Screw Set 5500 Series - Sna - [id number] Implanted:Qty: 4 on 06/20/2019 by Elvin Palmer MD at [facility] N/A: Back Core Link 66034-23 / NA / Core Link [id number] Fowlerton 5.5mm 35mm Line Prebent Jin Spinal Nonsterile 5500 Series - Sns - [id number] Implanted:Qty: 2 on 06/20/2019 by Elvin Palmer MD at [facility] N/A: Back Core Link [id number] / NS / [employer] [id number] Inqu Paste Mix Plus Digital Developer 10cc Bone Graft Hyaluronic Acid Poly - Sna - [id number] Implanted:Qty: 1 on 06/20/2019 by Elvin Palmer MD at [facility] N/A: Back [employer] [id number] 01/19/2021 [id number] / NA / [id number] Core Link 78444-20 Fowlerton 6.5mm 40mm Spine Pedicle Screw Bone 5500 Series - Sna - [id number] Implanted:Qty: 4 on 06/20/2019 by Elvin Palmer MD at [facility] N/A: Back Core Link 12791-53 / NA / Cerapedics Inc 700-025 I Factor Allograft Putty Syringe Graft 2.5cc Bone - [id number] Implanted:Qty: 1 on 11/26/2020 by Elvin Palmer MD at [facility] N/A: Spine Cervical [employer] Inc 09/08/2023 700-025 / / [id number] C[employer] 3d Cervical 14.0q21p6yj 7 Deg - [id number] Implanted:Qty: 1 on 11/26/2020 by Elvin Palmer MD at [facility] N/A: Spine Cervical Core Link 10/25/2024 [id number] / / [id number] Core Link Anodyne 12mm Level 1 Spine Cervical Anterior Plate Bone - [id number] Implanted:Qty: 1 on 11/26/2020 by Elvin Palmer MD at [facility] N/A: Spine Cervical Core Link / / Core Link Anodyne 4mm 14mm Variable Angle Self Tap Spine Cervical Screw - [id number] Implanted:Qty: 4 on 11/26/2020 by Elvin Palmer MD at [facility] N/A: Spine Cervical Core Link / / Procedures Procedure Name Priority Date/Time Associated Diagnosis Comments DEVICE CHECK - REMOTE Routine 11/18/2024 12:03 PM CASE FOLDER NICM (nonischemic cardiomyopathy) (CMS/HCC) (HCC) NSVT (nonsustained ventricular tachycardia) (HCC) DEVICE CHECK - REMOTE Routine 10/27/2024 6:13 PM CASE FOLDER NICM (nonischemic cardiomyopathy) (CMS/HCC) (HCC) NSVT (nonsustained ventricular tachycardia) (HCC) SCAN - RADIOLOGY/IMAGING 10/19/2024 DEVICE CHECK - REMOTE Routine 09/26/2024 9:32 AM CASE FOLDER NICM (nonischemic cardiomyopathy) (CMS/HCC) (HCC) NSVT (nonsustained ventricular tachycardia) (HCC) HEPATITIS C ANTIBODY STAT 10/15/2018 11:20 AM CASE FOLDER from Last 3 Months or Most Recently Relevant to Health Maintenance Results * DEVICE CHECK - REMOTE (11/18/2024 12:03 PM CASE FOLDER) Anatomical Region Laterality Modality Other Narrative 12/08/2024 3:50 PM CASE FOLDER Biotronik lllm implanted on March 05, 2022 ??for syncope. ?? Patient had a routine remote transmission on November 14, 2024 Medications: ??Norvasc 5 mg daily Interrogation of the patients device demonstrates appropriate loop function (0) Symptom events Auto Device detected events of, (0) Pause, (0) Bradycardia, (6) Tachy, all show SVT longest detected November 07 at 5:17 a.m., 2 minutes 34 seconds in duration (0) AT, (0) AF, Presenting Rhythm: ??Sinus tachycardia at 100 bpm Battery: OK at 50% Plan: 1) Scheduled routine remote with Tachy episode. 2) Continue to monitor remotely. ?? Bandar Jordan Device Wheel Braider Vy Pierce MD [facility] PRO CEDURES Final Result * DEVICE CHECK - REMOTE (10/27/2024 6:13 PM CASE FOLDER) Anatomical Region Laterality Modality Other Narrative 10/28/2024 8:21 AM CASE FOLDER [employer] Bio-monitor III Loop Recorder. Dx; Syncope, PSVT, AT, RVOT VT s/p ablation. DOI 03/05/2022-[facility]. [employer] remote monitoring. Unscheduled ILR remote due to [...] 1) Ectopy beats: 933. See scanned report. [employer] remote f/u 11/14/2024. Shelley Looney, LARISSA Vy Pierce MD [facility] PRO CEDURES Final Result * SCAN - RADIOLOGY/IMAGING (10/19/2024) Anatomical Region Laterality Modality Other Jessica Shoemaker OUTPATIENT CODING SPECIALIST Final Res ult * DEVICE CHECK - REMOTE (09/26/2024 9:32 AM CASE FOLDER) Anatomical Region Laterality Modality Other Narrative 10/28/2024 9:20 AM CASE FOLDER [employer] Bio-monitor III Loop Recorder. Dx; Syncope, PSVT, AT, RVOT VT s/p ablation. DOI 03/05/2022-[facility]. [employer] remote monitoring. Routine ILR remote. Normal device [...] * Hepatitis C antibody (10/15/2018 11:20 AM CASE FOLDER) Hep C Ab Non-Reactiv e Non-Reactiv e [facility] Blood specimen (specimen) 10/15/2018 11:20 AM CASE FOLDER 10/15/2018 11:41 AM CASE FOLDER Narrative [facility] - 10/15/2018 12:25 PM CASE FOLDER us Notinfile Unknown LAB MICROBIOLOGY - GENERAL ORD ERABLES Final Result [facility] [address] Department [place] [address] from Last 3 Months or Most Recently Relevant to Health Maintenance Insurance MEDICARE AETNA MEDICARE AETNA MEDICARE AETNA SENIOR SUPPLEMENT Advance Directives For more information, please contact: [phone] * Full Code (Latest Code Status on File) Date Activated Date Inactivated Comments 09/07/2023 10:10 AM 09/07/2023 2:44 PM * Full Code Date Activated Date Inactivated Comments 06/20/2019 12:01 PM 06/20/2019 6:34 PM * Full Code Date Activated Date Inactivated Comments 10/15/2018 2:08 PM 10/15/2018 4:39 PM * Full Code Date Activated Date Inactivated Comments 07/16/2018 2:30 PM 07/16/2018 6:36 PM Care Teams National Account Representative Relationship Specialty Start Date End Date Per Samson MD PCP - General Family Practice 06/01/23 Coretta Childers MD Consulting Physician Cardiology 08/28/23 Tima Henson MD [address] [address] Consulting Physician Otolaryngology 08/28/23
--- OUTSIDE RECORDS SUMMARY | 2024-12-09 10:36 | XMS_ITS | Encounter Summary ---
Author Organization [facility] Address [address] [place] [address] Care Team Providers Care Pull Over Machine Operator Name Role Phone Zafar Reddy MD Primary Care Provider [phone] Sung Mullen MD Primary Care Provider [phone] Zafar Reddy MD Primary Care Provider [phone] Sung Mullen MD Primary Care Provider [phone] Zafar Reddy MD Primary Care Provider [phone] Sung Mullen MD Primary Care Provider [phone] Edy Aviles DO Primary Care Provider [phone] Per Samson MD Primary Care Provider [phone] Coretta Childers MD Unavailable [phone] Tima Hesnon MD Unavailable [phone] Encounter Details Date Type Department Care Team (Late st Contact Info) Description 03/13/2017 Orders Only [facility] ProviderKamran MD [address] [place] [address] Social History Tobacco Use Types Packs/Day Years Used Date Smoking Tobacco: Every Day Alcohol Use Standard Drinks/Week Comments No 0 (1 standard drink = 0.6 oz pur e alcohol) Comments Unknown Sex and Gender Information Value Date Recorded Sex Assigned at Not on file Legal Sex Female 11:06 AM LOADING CHECKER Gender Identity Not on file Sexual Orientation [...] on filedocumented in this encounter Care Teams Pull Over Machine Operator Relationship Specialty Start Date End Date Zafar Reddy MD [address] [place] [address] PCP - General 06/10/12 11/12/20 Sung Mullen MD [address] [place] [address] PCP - General 11/13/20 11/15/20 Zafar Reddy MD [address] [place] [address] PCP - General 11/16/20 11/22/20 Sung Mullen MD [address] [place] [address] PCP - General 11/23/20 11/25/20 Zafar Reddy MD [address] [place] [address] PCP - General 11/26/20 05/20/21 Sung Mullen MD [address] [place] [address] PCP - General Internal Medicine 05/21/21 06/04/22 Edy Aviles DO [address] [place] [address] PCP - General Internal Medicine 06/05/22 05/31/23 Per Samson MD [address] [place] [address] PCP - General Family Practice 06/01/23 Coretta Childers MD [address] [place] [address] Consulting Physician Cardiology 08/28/23 Tima Henson MD [address] [address] Consulting Physician Otolaryngology 08/28/23 documented as of this encounter
--- OUTSIDE RECORDS SUMMARY | 2024-12-09 10:36 | XMS_ITS | Encounter Summary ---
Author Organization [facility] Address [address] [place] [address] Care Team Providers Care Patient Registration Clerk Name Role Phone Edy Aviles DO Primary Care Provider [phone] Encounter Details Date Type Department Care Team (Late st Contact Info) Description 12/19/2020 Lab Requisition [facility] Care DermPath Lab [address] [facility] [address] [place] [id number] Israel Lang MD [address] [place] [address] Social History Tobacco Use Types [...] Comments DERMATOPATHOLOGY Routine 12/18/2020 12:0 0 AM SOFTWARE SYSTEMS ENGINEER documented in this encounter Results * DERMATOPATHOLOGY (12/18/2020 12:00 AM SOFTWARE SYSTEMS ENGINEER) Case Report Dermatopathology Report ? Case: [id number] ? Authorizing Provider: ??Israel Lang MD ?Collected: ? 12/18/2020 12:00 AM ? Ordering Location: ? [facility] ?Received: ?12/19/2020 11:37 AM ? Pathologist: ? Nata Olmos MD ? Specimen: ?Skin, left ear superior rim ? 1 4:54 PM [facility] DERMATOPATH[facility] Final Diagnosis Specimen A. 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 4:54 PM [facility] DERMATOP[facility]Y [facility] Gross Description Specimen A: Received is one formalin filled container labeled with the patient's name and designated left ear superior rim. The specimen consists of a shave biopsy (4 pieces) measuring 1m1p4sp, 7i3h3ml, 8v5x1kg, & 3y1j6kr. Jar 0. 4:54 PM [facility] DERMATOPATHOLOGY [facility]ORY Microscopic Description Specimen A. SKIN, left ear superior rim: There is epidermal hyperplasia overlying dilated blood vessels and fibroplasia. 4:54 PM [facility] DERMATOPATHOLOGY [facility]ORATORY Disclaimer An external and internal positive and negative controls are appropriate for the histochemical, immunohistochemical and immunofluorescence stain(s) in this case (if any), except where stated explicitly. The performance characteristics of the stain(s) cited in this report were developed and its performance characteristic determined by the Dermatopathology Laboratory at [facility], directed by Dr. Yessi Jackman. These tests need not be, and therefore are not, approved by the [place] Food and Drug Administration. The tests are used for clinical purposes. Billing Codes Specimen Charges Stain Charges 60056 1 1 4:54 PM SOFTWARE SYSTEMS ENGINEER DERMATOPATHOLOGY LABORATORY Embedded Images 1 4:54 PM SOFTWARE SYSTEMS ENGINEER DERMATOPATHOLOGY LABORATORY Pathology/Cytolog y TISSUE SPECIMEN FROM SKIN / Unknown 12/18/2020 12/19/2020 11:37 AM SOFTWARE SYSTEMS ENGINEER Israel Lang MD LAB - PATHOLOGY/CYTO LOGY ORDERABLES DERMATOPATHOLOGY LABORATORY [facility] - Department of Dermatology [facility] Medicine [address] [place] [address], [address] [phone] documented in this encounter Visit Diagnoses Not on filedocumented in this encounter Care Teams Patient Registration Clerk Relationship Specialty Start Date End Date Edy Aviles DO [address] [place] [address] PCP - General 06/17/22 documented as of this encounter
--- OUTSIDE RECORDS SUMMARY | 2024-12-09 10:36 | XMS_ITS | Referral Summary ---
Author Organization [facility] Address [address] [place] [address] Care Team Providers Care [employer] Name Role Phone Edy Aviles DO Primary Care Provider [phone] Source Comments [facility],non-owned Affiliates and Associated Physician Practices is amultiple site organization consisting of ambulatory clinics and hospital sitesin [place], [place], [place] and [place]. This disclosure is being madepursuant to the Care Everywhere program and may not contain all information available regarding this patient. Last updated 18.[facility] Allergies Active Allergy Reactions Criticality Noted [...] Immunizations Name Administration Dates Next Due Ian PoshVine primary monoval ent 12+ yr 0.3mL Purple [...] Comments Blood Pressure 148/57 10/26/2021 7:27 AM PERSONNEL COORDINATOR Pulse 95 10/26/2021 7:27 AM PERSONNEL COORDINATOR Temperature 36.8 ??C (98.3 ??F) 10/26/2021 7:27 AM CS T Respiratory Rate 16 10/25/2021 10:58 PM PERSONNEL COORDINATOR Oxygen Saturation 100% 10/26/2021 7:27 AM PERSONNEL COORDINATOR Inhaled Oxygen Concentration 40% 10/25/2021 1 2:10 PM PERSONNEL COORDINATOR Weight 85.7 kg (189 lb) 07/08/2022 9:04 [...] 3-4 weeks. Medical Devices Implanted Type Area Consultants Intern Device Identifier Shelf Expiration Date Model / Serial / Lot Pin Hlf 255mm 5mm Jtx Lng Ss 35mm Extfix Implanted:Qty: 2 on 10/11/2021 by Jovon Maloney, DO at [facility] Left: [employer] [id number] / / Pin Hlf 40mm 5mm Jtx Lng Ti Ntrd Extfix Implanted:Qty: 2 on 10/11/2021 by Jovon Maloney, DO at [facility] Left: [employer] [id number] / / Bar Extfix 200mm Jtx Cfbr Nonster Disp Implanted:Qty: 2 on 10/11/2021 by Jovon Maloney, DO at [facility] Left: [employer] [id number] / / Screw 3.5mm 46mm Ft Hex Drv Nlckg Fly Implanted:Qty: 1 on 10/25/2021 by Jovon Maloney, DO at [facility] Left: Tibia [employer] 8150-37-046 / / Screw 3.5mm 50mm Ft Nonlock Hex Drv Elb Implanted:Qty: 2 on 10/25/2021 by Jovon Maloney, DO at [facility] Left: [employer] 8150-37-050 / / Screw 3.5mm 55mm Ft Slf-Tap Hex Lopro Implanted:Qty: 1 on 10/25/2021 by Jovon Maloney, DO at [facility] Left: [employer] 8150-37-055 / / Screw 3.5mm 65mm T15 Lck Slf-Tap Tip Tpr Implanted:Qty: 3 on 10/25/2021 by Jovon Maloney, DO at [facility] Left: [employer] 8161-35-065 / / Screw 3.5mm 70mm T15 Lck Slf-Tap Tip Tpr Implanted:Qty: 2 on 10/25/2021 by Jovon Maloney, DO at [facility] Left: [employer] [id number] / / Plate 5 Hl Lck Lopro Dist Blt Tip Tib Lt Implanted:Qty: 1 on 10/25/2021 by Jovon Maloney, DO at [facility] Left: [employer] 8162-35-705 / / Screw 3.5mm 65mm 2.2mm Mldir Lck Sq Drv Implanted:Qty: 1 on 10/25/2021 by Jovon Maloney, DO at [facility] Left: [employer] [id number] / / Screw 3.5mm 80mm Sq Drv Nonlock Lopro Implanted:Qty: 1 on 10/25/2021 by Jovon Maloney, DO at [facility] Left: [employer] 1312-18-080 / / Screw 3.5mm 75mm T15 Lck Slf-Tap Tip Tpr Implanted:Qty: 1 on 10/25/2021 by Jovon Maloney DO at [facility] Left: [employer] 8161-35-075 / / Plate 5 Hl Lopro Lck Cha Marquez Dist 61 Implanted:Qty: 1 on 10/25/2021 by Jovon Maloney DO at [facility] Left: [employer] [id number] / / Screw 3.5mm 34mm Ft Nonlock Hex Drv Elb Implanted:Qty: 1 on 10/25/2021 by Jovon Maloney DO at [facility] Left: [employer] 8150-37-034 / / Screw 3.5mm 38mm Ft Slf-Tap Hex Lopro Implanted:Qty: 1 on 10/25/2021 by Jovon Maloney DO at [facility] Left: Tibia Tereas [employer] 8150-37-038 / / Screw 3.5mm 40mm Ft Slf-Tap Hex Lopro Implanted:Qty: 1 on 10/25/2021 by Jovon Maloney DO at [facility] Left: [employer] 8150-37-040 / / Explanted Type Area Consultants Intern Device Identifier Shelf Expiration Date Model / Serial / Lot Clamp Extfix Jtx 10.5mm Bar To Bar Mr Sf Explanted:Qty: 2 on 10/11/2021 at [facility] Left: [employer] [id number] / / Screw 3.5mm 55mm Ft Slf-Tap Hex Lopro Explanted:Qty: 1 on 10/25/2021 by Jovon Maloney DO at [facility] Left: [employer] 8150-37-055 / / Wire K 1.6mm 6in Hlf Bynt Pnt Ss Fx Explanted:Qty: 4 on 10/25/2021 by Jovon Maloney DO at [facility] Left: [employer] [id number] / / Screw 3.5mm 36mm Ft Slf-Tap Hex Lopro Explanted:Qty: 1 on 10/25/2021 by Jovon Maloney DO at [facility] Left: [employer] [id number] / / Procedures Procedure Name Priority Date/Time Associated Diagnosis Comments BASIC METABOLIC PANEL (CALCIUM TOTAL) Routine 10/26/2021 2:31 AM PERSONNEL COORDINATOR Closed fracture of left tibial plateau, initial encounter from Last 3 Months or Most Recently Relevant to Health Maintenance Results * (ABNORMAL) BASIC METABOLIC PANEL (CALCIUM TOTAL) (10/26/2021 2:31 AM PERSONNEL COORDINATOR) BUN 14 7 - 26 mg/dL 10/26/2021 3:29 AM [facility] Creatinine 0.95 0.56 - 0.96 mg/dL 10/26/2021 3:29 AM [facility] Sodium 134(L) 136 - 145 mmol/L 10/26/2021 3:29 AM [facility] Potassium 4.2 3.5 - 4.5 mmol/L 10/26/2021 3:29 AM [facility] Chloride 102 98 - 107 mmol/L 10/26/2021 3:29 AM [facility] CO2 25 22 - 29 mmol/L 10/26/2021 3:29 AM [facility] Glucose 106 70 - 115 mg/dL 10/26/2021 3:29 AM [facility] Calcium 8.9 8.4 - 10.2 mg/dL 10/26/2021 3:29 AM [facility] Anion Gap 11 8 - 18 10/26/2021 3:29 AM [facility] BUN/Creatinine Ratio 15 7 - 23 10/26/2021 3:29 AM [facility] Osmolality Calculated 279 270 - 300 mOsm/kg 10/26/2021 3:29 AM [facility] eGFR by CKD-EPI 63(L) >=90 mL/min/1.7 3 m2 10/26/2021 3:29 AM [facility] Blood BLOOD SPECIMEN / Unknown Lab Venipuncture / Unknown 10/26/2021 2:31 AM PERSONNEL COORDINATOR 10/26/2021 3:01 AM [facility] Jovon Maloney DO LAB - CHEMISTRY JOECLYNN GARCIA [facility] [address] [place] [address], [facility] [phone] from Last 3 Months or Most Recently Relevant to Health Maintenance Advance Directives * Full Code (Latest Code Status on File) Date Activated Date Inactivated Comments 10/25/2021 1:30 PM 10/26/2021 1:32 PM * Full Code Date Activated Date Inactivated Comments 10/11/2021 12:36 PM 10/15/2021 3:44 PM Care Teams [employer] Relationship Specialty Start Date End Date Edy Aviles DO [address] [address] PCP - General 06/17/22
--- OUTSIDE RECORDS SUMMARY | 2024-12-09 10:36 | XMS_ITS | Clinical Summary ---
Author Organization [facility] Address [address] [place] [address] Care Team Providers Care [place] Operator Name Role Phone Edy Aviles DO Primary Care Provider [phone] Source Comments [facility],non-owned Affiliates and Associated Physician Practices is amultiple site organization consisting of ambulatory clinics and hospital sitesin [place], [place], [place] and [place]. This disclosure is being madepursuant to the Care Everywhere program and may not contain all information available regarding this patient. Last updated 18.[facility] Allergies Active Allergy Reactions [...] Immunizations Name Administration Dates Next Due Ian Cogeco Cable primary monoval ent 12+ yr 0.3mL Purple [...] Comments Blood Pressure 148/57 10/26/2021 7:27 AM BLOCK CLEANER Pulse 95 10/26/2021 7:27 AM BLOCK CLEANER Temperature 36.8 ??C (98.3 ??F) 10/26/2021 7:27 AM CS T Respiratory Rate 16 10/25/2021 10:58 PM BLOCK CLEANER Oxygen Saturation 100% 10/26/2021 7:27 AM BLOCK CLEANER Inhaled Oxygen Concentration 40% 10/25/2021 1 2:10 PM BLOCK CLEANER Weight 85.7 kg (189 lb) 07/08/2022 9:04 [...] 3-4 weeks. Medical Devices Implanted Type Area It Communications Manager Device Identifier Shelf Expiration Date Model / Serial / Lot Pin Hlf 255mm 5mm Jtx Lng Ss 35mm Extfix Implanted:Qty: 2 on 10/11/2021 by Jovon Maloney, DO at [facility] Left: [employer] [id number] / / Pin Hlf 40mm 5mm Jtx Lng Ti Ntrd Extfix Implanted:Qty: 2 on 10/11/2021 by Jovon Maloney, DO at [facility] Left: [employer] [id number] / / Bar Extfix 200mm Jtx Cfbr Nonster Disp Implanted:Qty: 2 on 10/11/2021 by Jovon Maloney DO at [facility] Left: [employer] [id number] / / Screw 3.5mm 46mm Ft Hex Drv Nlckg Fly Implanted:Qty: 1 on 10/25/2021 by Jovon Maloney, DO at [facility] Left: [employer] 8150-37-046 / / Screw 3.5mm 50mm Ft Nonlock Hex Drv Elb Implanted:Qty: 2 on 10/25/2021 by Jovon Maloney DO at [facility] Left: [employer] 8150-37-050 / / Screw 3.5mm 55mm Ft Slf-Tap Hex Lopro Implanted:Qty: 1 on 10/25/2021 by Jovon Maloney DO at [facility] Left: [employer] 8150-37-055 / / Screw 3.5mm 65mm T15 Lck Slf-Tap Tip Tpr Implanted:Qty: 3 on 10/25/2021 by Jovon Maloney DO at [facility] Left: [employer] 8161-35-065 / / Screw 3.5mm 70mm T15 Lck Slf-Tap Tip Tpr Implanted:Qty: 2 on 10/25/2021 by Jovon Maloney, DO at [facility] Left: [employer] [id number] / / Plate 5 Hl Lck Lopro Dist Blt Tip Tib Lt Implanted:Qty: 1 on 10/25/2021 by Jovon Maloney, DO at [facility] Left: [employer] 8162-35-705 / / Screw 3.5mm 65mm 2.2mm Mldir Lck Sq Drv Implanted:Qty: 1 on 10/25/2021 by Jovon Maloney, at [facility] Left: [employer] [id number] / / Screw 3.5mm 80mm Sq Drv Nonlock Lopro Implanted:Qty: 1 on 10/25/2021 by Jovon Maloney, DO at [facility] Left: [employer] 1312-18-080 / / Screw 3.5mm 75mm T15 Lck Slf-Tap Tip Tpr Implanted:Qty: 1 on 10/25/2021 by Jovon Maloney, at [facility] Left: [employer] 8161-35-075 / / Plate 5 Hl Lopro Lck Ulna Olcrn Dist 61 Implanted:Qty: 1 on 10/25/2021 by Jovon Maloney DO at [facility] Left: [employer] [id number] / / Screw 3.5mm 34mm Ft Nonlock Hex Drv Elb Implanted:Qty: 1 on 10/25/2021 by Jovon Maloney DO at [facility] Left: [employer] 8150-37-034 / / Screw 3.5mm 38mm Ft Slf-Tap Hex Lopro Implanted:Qty: 1 on 10/25/2021 by Jovon Maloney DO at [facility] Left: [employer] 8150-37-038 / / Screw 3.5mm 40mm Ft Slf-Tap Hex Lopro Implanted:Qty: 1 on 10/25/2021 by Jovon Maloney DO at [facility] Left: [employer] 8150-37-040 / / Explanted Type Area It Communications Manager Device Identifier Shelf Expiration Date Model / Serial / Lot Clamp Extfix Jtx 10.5mm Bar To Bar Mr Buitrago Explanted:Qty: 2 on 10/11/2021 at [facility] Left: [employer] [id number] / / Screw 3.5mm 55mm Ft Slf-Tap Hex Lopro Explanted:Qty: 1 on 10/25/2021 by Jovon Maloney DO at [facility] Left: [employer] 8150-37-055 / / Wire K 1.6mm 6in [facility] Ss Fx Explanted:Qty: 4 on 10/25/2021 by Jovon Maloney DO at [facility] Left: [employer] [id number] / / Screw 3.5mm 36mm Ft Slf-Tap Hex Lopro Explanted:Qty: 1 on 10/25/2021 by Jovon Maloney DO at [facility] Left: [employer] [id number] / / Procedures Procedure Name Priority Date/Time Associated Diagnosis Comments BASIC METABOLIC PANEL (CALCIUM TOTAL) Routine 10/26/2021 2:31 AM BLOCK CLEANER Closed fracture of left tibial plateau, initial encounter from Last 3 Months or Most Recently Relevant to Health Maintenance Results * (ABNORMAL) BASIC METABOLIC PANEL (CALCIUM TOTAL) (10/26/2021 2:31 AM BLOCK CLEANER) BUN 14 7 - 26 mg/dL 10/26/2021 3:29 AM [facility] Creatinine 0.95 0.56 - 0.96 mg/dL 10/26/2021 3:29 AM [facility] Sodium 134(L) 136 - 145 mmol/L 10/26/2021 3:29 AM [facility] Potassium 4.2 3.5 - 4.5 mmol/L 10/26/2021 3:29 AM [facility] Chloride 102 98 - 107 mmol/L 10/26/2021 3:29 AM [facility] CO2 25 22 - 29 mmol/L 10/26/2021 3:29 AM [facility] Glucose 106 70 - 115 mg/dL 10/26/2021 3:29 AM [facility] Calcium 8.9 8.4 - 10.2 mg/dL 10/26/2021 3:29 AM [facility] Anion Gap 11 8 - 18 10/26/2021 3:29 AM [facility] BUN/Creatinine Ratio 15 7 - 23 10/26/2021 3:29 AM [facility] Osmolality Calculated 279 270 - 300 mOsm/kg 10/26/2021 3:29 AM [facility] eGFR by CKD-EPI 63(L) >=90 mL/min/1.7 3 m2 10/26/2021 3:29 AM [facility] Blood BLOOD SPECIMEN / Unknown Lab Venipuncture / Unknown 10/26/2021 2:31 AM BLOCK CLEANER 10/26/2021 3:01 AM [facility] Jovon Maloney DO LAB - CHEMISTRY JOCELYNN GARCIA [facility] [address] [place] [address], [facility] [phone] from Last 3 Months or Most Recently Relevant to Health Maintenance Advance Directives * Full Code (Latest Code Status on File) Date Activated Date Inactivated Comments 10/25/2021 1:30 PM 10/26/2021 1:32 PM * Full Code Date Activated Date Inactivated Comments 10/11/2021 12:36 PM 10/15/2021 3:44 PM Care Teams [place] Operator Relationship Specialty Start Date End Date Edy Aviles DO [address] [place] [address] PCP - General 06/17/22
--- OUTSIDE RECORDS SUMMARY | 2024-12-09 10:36 | XMS_ITS | Patient Health Summary ---
Author Organization [facility] Address [address] [address] Care Team Providers Care Rotary Shear Worker Helper Name Role Phone Edy Aviles DO Primary Care Provider [phone] Note from [facility],non-owned Affiliates and Associated Physician Practices is amultiple site organization consisting of ambulatory clinics and hospital sitesin [place], [place], [place] and [place]. This disclosure is being madepursuant to the Care Everywhere program and may not contain all information available regarding this patient. Last updated 18.[facility] Allergies * Codeine(Urticaria,Nausea and/or Vomiting) [...] Comments Blood Pressure 148/57 10/26/2021 7:27 AM PRODUCT DESIGN ENGINEER Pulse 95 10/26/2021 7:27 AM PRODUCT DESIGN ENGINEER Temperature 36.8 ??C (98.3 ??F) 10/26/2021 7:27 AM CS T Respiratory Rate 16 10/25/2021 10:58 PM PRODUCT DESIGN ENGINEER Oxygen Saturation 100% 10/26/2021 7:27 AM PRODUCT DESIGN ENGINEER Inhaled Oxygen Concentration 40% 10/25/2021 1 2:10 PM PRODUCT DESIGN ENGINEER Weight 85.7 kg (189 lb) 07/08/2022 9:04 AM CDT Height 156.2 cm (5' 1.5 ) 07/08/2022 9:04 AM CDT Body Mass Index 35.13 07/08/2022 9:04 AM CDT Medical Devices Implanted Type Area Putty And Caulking Supervisor Device Identifier Shelf Expiration Date Model / Serial / Lot Pin Hlf 255mm 5mm Jtx Lng Ss 35mm Extfix Implanted:Qty: 2 on 10/11/2021 by Jovon Maloney DO at [facility] Left: [employer] [id number] / / Pin Hlf 40mm 5mm Jtx Lng Ti Ntrd Extfix Implanted:Qty: 2 on 10/11/2021 by Jovon Maloney DO at [facility] Left: [employer] [id number] / / Bar Extfix 200mm Jtx Cfbr Nonster Disp Implanted:Qty: 2 on 10/11/2021 by Jovon Maloney DO at [facility] Left: [employer] [id number] / / Screw 3.5mm 46mm Ft Hex Drv Nlckg Fly Implanted:Qty: 1 on 10/25/2021 by Jovon Maloney DO at [facility] Left: Tibia [employer] [id number] / / Screw 3.5mm 50mm Ft Nonlock Hex Drv Elb Implanted:Qty: 2 on 10/25/2021 by Jovon Maloney DO at [facility] Left: [employer] [id number] / / Screw 3.5mm 55mm Ft Slf-Tap Hex Lopro Implanted:Qty: 1 on 10/25/2021 by Jovon Maloney DO at [facility] Left: [employer]ia [employer] 8150-37-055 / / Screw 3.5mm 65mm T15 Lck Slf-Tap Tip Tpr Implanted:Qty: 3 on 10/25/2021 by Jovon Maloney DO at [facility] Left: [employer] [id number] / / Screw 3.5mm 70mm T15 Lck Slf-Tap Tip Tpr Implanted:Qty: 2 on 10/25/2021 by Jovon Maloney, DO at [facility] Left: [employer]ia [employer] [id number] / / Plate 5 Hl Lck Lopro Dist Blt Tip Tib Lt Implanted:Qty: 1 on 10/25/2021 by Jovon Maloney, DO at [facility] Left: [employer] [id number] / / Screw 3.5mm 65mm 2.2mm Mldir Lck Sq Drv Implanted:Qty: 1 on 10/25/2021 by Jovon Maloney, DO at [facility] Left: [employer] [id number] / / Screw 3.5mm 80mm Sq Drv Nonlock Lopro Implanted:Qty: 1 on 10/25/2021 by Jovon Maloney, DO at [facility] Left: [employer] [id number] / / Screw 3.5mm 75mm T15 Lck Slf-Tap Tip Tpr Implanted:Qty: 1 on 10/25/2021 by Jovon Maloney, DO at [facility] Left: [employer] [id number] / / Plate 5 Hl Lopro Lck Ulna Olcrn Dist 61 Implanted:Qty: 1 on 10/25/2021 by Jovon Maloney, DO at [facility] Left: [employer] [id number] / / Screw 3.5mm 34mm Ft Nonlock Hex Drv Elb Implanted:Qty: 1 on 10/25/2021 by Jovon Maloney, DO at [facility] Left: [employer] [id number] / / Screw 3.5mm 38mm Ft Slf-Tap Hex Lopro Implanted:Qty: 1 on 10/25/2021 by Jovon Maloney, DO at [facility] Left: [employer] [id number] / / Screw 3.5mm 40mm Ft Slf-Tap Hex Lopro Implanted:Qty: 1 on 10/25/2021 by Jovon Maloney, DO at [facility] Left: Tibia Teersa [employer] [id number] / / Explanted Type Area Putty And Caulking Supervisor Device Identifier Shelf Expiration Date Model / Serial / Lot Clamp Extfix Jtx 10.5mm Bar To Bar Mr Buitrago Explanted:Qty: 2 on 10/11/2021 at [facility] Left: [employer] [id number] / / Screw 3.5mm 55mm Ft Slf-Tap Hex Lopro Explanted:Qty: 1 on 10/25/2021 by Jovon Maloney DO at [facility] Left: [employer] 8150-37-055 / / Wire K 1.6mm 6in Hlf Bynt Pnt Ss Fx Explanted:Qty: 4 on 10/25/2021 by Jovon Maloney DO at [facility] Left: [employer]ia [employer] [id number] / / Screw 3.5mm 36mm Ft Slf-Tap Hex Lopro Explanted:Qty: 1 on 10/25/2021 by Jovon Maloney DO at [facility] Left: [employer] [id number] / / Procedures * DERMATOPATHOLOGY(Performed 02/23/2024) * [...] included. Case Report Dermatopathology Report ? Case: [id number] ? Authorizing Provider: ??Israel Lang MD ?Collected: ? 02/23/2024 12:00 AM ? Ordering Location: ? [facility] - ??Received: ?02/25/2024 06:55 AM ? DermPath Lab ? Pathologist: ? Maryanne Olmos MD ? Specimens: ?? A) - Skin, right paranasal cheek ? B) - Skin, right cheek ? C) - Skin, right parietal scalp ? 1:41 PM [facility] DERMATOPATHOLOGY LABORATORY Final Diagnosis Specimen A. 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 SKIN, right parietal scalp: NEUROFIBROMA (D36.10) 1:41 PM [facility] DERMATOPATHOLOGY LABORATORY Clinical History A: R/O BCC vs other B: R/O BCC vs other C: R/O BCC 1:41 PM [facility] DERMATOPATHOLOGY LABORATORY Gross Description Specimen [...] five pieces in aggregate shave biopsy measuring 95i68l3 mm. Jar 0. 1:41 PM [facility] DERMATOPATHOLOGY LABORATORY Microscopic Description Specimen [...] collagen is delicate and pale. 1:41 PM [facility] DERMATOPATHOLOGY LABORATORY Disclaimer An external and internal positive and negative controls are appropriate for the histochemical, immunohistochemical and immunofluorescence stain(s) in this case (if any), except where stated explicitly. The performance characteristics of the stain(s) cited in this report were developed and its performance characteristic determined by the Dermatopathology Laboratory at [facility], directed by Dr. Yessi Jackman. These tests need not be, and therefore are not, approved by the [place] Food and Drug Administration. The tests are used for clinical purposes. Billing Codes Specimen Charges Stain Charges 28232 95124 68946 1 1 1 4 1:41 PM CDT [...] LAB - PATHOLOGY/CYTO LOGY ORDERABLES DERMATOPATHOLOGY LABORATORY [facility] - Department of Dermatology [address], [address] [phone] * XR KNEE LEFT 3VW (07/08/2022 9:02 AM CDT) Only the most recent of9 resultswithin the time period is included. Anatomical Region Laterality Modality Lower Extremity Radiographic Courtney ging 07/08/2022 9:33 AM CDT Impressions 07/08/2022 9:41 AM CDT IMPRESSION: Unchanged fracture alignment. > Dictated by Ramonita Hernandez M.D. (resident doctor). I, Tramaine Ceron MD have personally reviewed and interpreted this examination/study. > Interpreting Provider: Tramaine Ceron MD on 07/08/2022 9:41 AM Narrative 07/08/2022 9:41 AM CDT PROCEDURE: ??XR KNEE LEFT 3VW, DATE/TIME OF EXAM: ??07/08/2022 9:02 AM, LOCATION ??[facility] INDICATION: S82.142D: Closed fracture of left [...] DATE/TIME OF EXAM: 07/08/2022 9:02 AM, LOCATION [facility] INDICATION: S82.142D: Closed fracture of left [...] > Dictated by Ramonita Hernandez M.D. (resident doctor). I, Tramaine Ceron MD have personally reviewed and interpreted this examination/study. > Interpreting Provider: Tramaine Ceron MD on 07/08/2022 9:41 AM Jovon Maloney DO DIAGNOSTIC IMAGING O RDERABLES * (ABNORMAL) CBC W/O DIFFERENTIAL (10/26/2021 2:31 AM PRODUCT DESIGN ENGINEER) Only the most recent of6 resultswithin the time period is included. WBC 12.2(H) 3.5 - 10.5 10? 3 /uL 10/26/2021 3:15 AM PRODUCT DESIGN ENGINEER [facility] RBC 2.39(L) 3.80 - 5.20 10? 6 /uL 10/26/2021 3:15 AM PRODUCT DESIGN ENGINEER [facility] Hemoglobin 7.0(L) 12.0 - 15.6 g/dL 10/26/2021 3:15 AM PRODUCT DESIGN ENGINEER [facility] Hematocrit 21.7(L) 35.0 - 45.0 % 10/26/2021 3:15 AM [facility] MCV 90.8 80.7 - 98.3 fL 10/26/2021 3:15 AM [facility] MCH 29.3 26.7 - 34.0 pg 10/26/2021 3:15 AM [facility] MCHC 32.3 30.8 - 35.9 g/dL 10/26/2021 3:15 AM [facility] Platelet Count 508(H) 150 - 400 10? 3 /uL 10/26/2021 3:15 AM [facility] RDW-SD 45.7 36.0 - 50.0 fL 10/26/2021 3:15 AM [facility] RDW-CV 14.1 11.2 - 14.8 % 10/26/2021 3:15 AM [facility] MPV 8.9(L) 9.4 - 12.9 fL 10/26/2021 3:15 AM [facility] nRBC Absolute 0.00 0 10? 3 /uL 10/26/2021 3:15 AM [facility] nRBC Auto 0.0 0 /100 WBC 10/26/2021 3:15 AM [facility] Blood BLOOD SPECIMEN / Unknown Lab Venipuncture / Unknown 10/26/2021 2:31 AM PRODUCT DESIGN ENGINEER 10/26/2021 3:01 AM [facility] Jovon Maloney DO LAB - HEMATOLOGY ORD ERABLES Performing Organization Address City/State/[facility] Co de Phone Number [facility] [address] [place] [phone], [facility] [phone] * (ABNORMAL) BASIC METABOLIC PANEL (CALCIUM TOTAL) (10/26/2021 2:31 AM PRODUCT DESIGN ENGINEER) Only the most recent of6 resultswithin the time period is included. BUN 14 7 - 26 mg/dL 10/26/2021 3:29 AM [facility] Creatinine 0.95 0.56 - 0.96 mg/dL 10/26/2021 3:29 AM [facility] Sodium 134(L) 136 - 145 mmol/L 10/26/2021 3:29 AM [facility] Potassium 4.2 3.5 - 4.5 mmol/L 10/26/2021 3:[address] [facility] Chloride 102 98 - 107 mmol/L 10/26/2021 3:29 AM [facility] CO2 25 22 - 29 mmol/L 10/26/2021 3:29 AM [facility] Glucose 106 70 - 115 mg/dL 10/26/2021 3:29 AM [facility] Calcium 8.9 8.4 - 10.2 mg/dL 10/26/2021 3:29 AM [facility] Anion Gap 11 8 - 18 10/26/2021 3:29 AM [facility] BUN/Creatinine Ratio 15 7 - 23 10/26/2021 3:29 AM [facility] Osmolality Calculated 279 270 - 300 mOsm/kg 10/26/2021 3:29 AM [facility] eGFR by CKD-EPI 63(L) >=90 mL/min/1.7 3 m2 10/26/2021 3:29 AM [facility] Blood BLOOD SPECIMEN / Unknown Lab Venipuncture / Unknown 10/26/2021 2:31 AM PRODUCT DESIGN ENGINEER 10/26/2021 3:01 AM PRODUCT DESIGN ENGINEER Jovon Maloney DO LAB - CHEMISTRY [facility] Organization Address City/State/ZIP Co de Phone Number [facility] [address] [place] [address], [facility] [phone] * XR KNEE LEFT 2VW OR LESS (10/25/2021 12:05 PM PRODUCT DESIGN ENGINEER) Only the most recent of2 resultswithin the time period is included. Anatomical Region Laterality Modality Lower Extremity Radiographic Courtney ging 10/25/2021 12:5 9 PM PRODUCT DESIGN ENGINEER Impressions 10/25/2021 1:00 PM PRODUCT DESIGN ENGINEER IMPRESSION: Internally fixated tibial plateau fracture. This report was electronically signed by TRAMAINE CERON MD ??on 10/25/2021 1:00 PM . Narrative 10/25/2021 1:00 PM PRODUCT DESIGN ENGINEER Exam: ??XR KNEE LEFT 2VW History: ??S82.142A: [...] * FL JAQUELIN SURGERY (10/25/2021 11:36 AM PRODUCT DESIGN ENGINEER) Only the most recent of2 resultswithin the time period is included. Narrative [facility] - 10/25/2021 11:37 AM PRODUCT DESIGN ENGINEER Fluoroscopy was used for this exam in the OR. Please see the Operative report. Jovon Maloney DO FLUOROSCOPY ORDERABL ES [facility] * ETT LINE PERFORMABLE (10/25/2021 8:26 AM PRODUCT DESIGN ENGINEER) Narrative Veto Guzman DO - 10/25/2021 8:26 AM PRODUCT DESIGN ENGINEER Veto Guzman DO ? 10/25/2021 ??8:28 AM Endotracheal Tube Placement: ? Patient Location: OR. Procedure: intubation ([id number]). Procedure Section: ?? Sedation: under general anesthesia. [...] TYPE + SCREEN PANEL (10/25/2021 6:42 AM PRODUCT DESIGN ENGINEER) Only the most recent of2 resultswithin the time period is included. [facility] Antibody Screen NEG 7:30 AM PRODUCT DESIGN ENGINEER [facility] ABO Rh O POS 10/25/2021 7:30 AM PRODUCT DESIGN ENGINEER [facility] Blood Bank BLOOD SPECIMEN / Unknown Venipuncture / Unknown 10/25/2021 6:42 AM PRODUCT DESIGN ENGINEER 10/25/2021 6:51 AM PRODUCT DESIGN ENGINEER Jovon Maloney DO LAB - BLOOD BANK ORD ERABLES [facility] [address] [place] [address], [facility] [phone] * SARS-COV-2 (COVID-19) INTERNAL (10/12/2021 3:49 PM PRODUCT DESIGN ENGINEER) [facility] COVID-19 PCR Not detected Not detected 10/13/2021 6:11 AM PRODUCT DESIGN ENGINEER [facility] Microbiology SPECIMEN FROM NASOPHARYNGEAL STRUCTURE / Unknown Collection / Unknown 10/12/2021 3:49 PM PRODUCT DESIGN ENGINEER 10/12/2021 4:54 PM PRODUCT DESIGN ENGINEER Narrative [facility] - 10/13/2021 6:11 AM PRODUCT DESIGN ENGINEER This nucleic acid amplification assay performance was validated by [facility]. This test has been authorized [...] Maloney DO LAB - MICROBIOLOGY O RDERABLES [facility] [address] [place] [address], [facility] [phone] * ETT LINE PERFORMABLE (10/11/2021 11:52 AM PRODUCT DESIGN ENGINEER) Narrative Solan Salcedo Anes Asst - 10/11/2021 11:52 AM PRODUCT DESIGN ENGINEER Sloan Salcedo Anes Asst ? 10/11/2021 11:53 AM Endotracheal Tube Placement: ? Patient Location: OR. Intubation Event Date/Time: ??10/11/2021 10:59 AM Procedure: intubation ([id number]). Procedure Section: ?? Sedation: under general anesthesia. [...] KNEE LEFT WO CONTRAST (10/10/2021 9:26 PM PRODUCT DESIGN ENGINEER) Anatomical Region Laterality Modality Lower Extremity Computed Tomogra phy 10/10/2021 9:33 PM PRODUCT DESIGN ENGINEER Impressions 10/11/2021 9:05 AM PRODUCT DESIGN ENGINEER Impression: 1.Comminuted moderately displaced tibial plateau fracture involving the medial and lateral plateau articular surfaces. 2.Comminuted mildly displaced fibular head fracture. Report drafted by Oni Rowe (resident) IDr. TRAMAINE MD have personally reviewed and interpreted this examination/study. This report was electronically signed by TRAMAINE CERON MD ??on 10/11/2021 9:05 AM . Narrative 10/11/2021 9:05 AM PRODUCT DESIGN ENGINEER Procedure Information DATE: 10/10/2021 9:28 PM EXAMINATION: [...] (COVID-19)+INFLU A+B PCR RAPID (10/10/2021 8:35 PM PRODUCT DESIGN ENGINEER) COVID-19 PCR Not detected Not detected 10/10/20 9:01 PM [facility] Influenza A Rapid GABRIELA Not Detected Not Detected 10/10/2021 9:01 PM PRODUCT DESIGN ENGINEER [facility] Influenza B GABRIELA Rapid Not Detected Not Detected 10/10/2021 9:01 PM [facility] Microbiology SPECIMEN FROM NASOPHARYNGEAL STRUCTURE / Unknown Collection / Unknown 10/10/2021 8:35 PM PRODUCT DESIGN ENGINEER 10/10/2021 8:39 PM PRODUCT DESIGN ENGINEER Narrative [facility] - 10/10/2021 9:01 PM PRODUCT DESIGN ENGINEER Influenza assay performed by [employer]. [...] acid amplification assay performance was validated by [facility]. This test has been authorized by the [...] Jovon Maloney DO LAB - MICROBIOLOGY O THOMASETNALU[place] [address] [address], [facility] [phone] * XR STRESS ANY JOINT (10/10/2021 8:31 PM PRODUCT DESIGN ENGINEER) Anatomical Region Laterality Modality Lower Extremity, Upper Extremity Radiographic Imaging 10/11/2021 10:1 6 AM PRODUCT DESIGN ENGINEER Impressions 10/11/2021 10:19 AM PRODUCT DESIGN ENGINEER IMPRESSION: No change in alignment of the osseous structures of the ankle status post stress. Report dictated by Ramon Burns DO (resident doctor) IDr. KIMI MD, [facility] have personally reviewed and interpreted this examination/study. This report was electronically signed by KIMI TELLO MD, FRCR ??on 10/11/2021 10:19 AM . Narrative 10/11/2021 10:19 AM PRODUCT DESIGN ENGINEER EXAMINATION: XR STRESS ANY JOINT HISTORY: W11.XXXA: [...] ankle statuspost stress. Report dictated by Ramon Burns DO (resident doctor) Dr. KIMI Mosley MD, FRROSALBA have personally reviewedand interpreted this examination/study. This report was electronically signed by KIMI TELLO MD, FRCR on 10/11/2021 10:19 AM . Lilliam Aguirre MD DIAGNOSTIC IMAGING O RDERABLES * XR FEMUR LEFT 2VW (10/10/2021 8:31 PM PRODUCT DESIGN ENGINEER) Anatomical Region Laterality Modality Lower Extremity Radiographic Courtney ging 10/11/2021 10:1 0 AM PRODUCT DESIGN ENGINEER Impressions 10/11/2021 10:26 AM PRODUCT DESIGN ENGINEER IMPRESSION: 1.No acute osseous abnormality of the femur. 2.Redemonstrated lateral tibial condyle are fracture and proximal fibular fracture with large joint effusion. Report dictated by Ramon Burns DO (resident doctor). Dr. KIMI Mosley MD, FRROSALBA have personally reviewed and interpreted this examination/study. This report was electronically signed by KIMI TELLO MD, FRCR ??on 10/11/2021 10:26 AM . Narrative 10/11/2021 10:26 AM PRODUCT DESIGN ENGINEER EXAMINATION: XR FEMUR LEFT 2VW HISTORY: W11.XXXA: [...] Report dictated by Ramon Burns DO (resident doctor). Dr. KIMI Mosley MD, FRROSALBA have personally reviewedand interpreted this examination/study. This report was electronically signed by KIMI TELLO MD, YUSEF on 10/11/2021 10:26 AM . Lilliam Aguirre MD DIAGNOSTIC IMAGING O RDERABLES * XR PELVIS 1 OR 2VW (10/10/2021 7:59 PM PRODUCT DESIGN ENGINEER) Anatomical Region Laterality Modality Pelvis Radiographic Courtney ging 10/11/2021 10:0 4 AM PRODUCT DESIGN ENGINEER Impressions 10/11/2021 10:52 AM PRODUCT DESIGN ENGINEER IMPRESSION: No acute fracture identified. Report dictated by Ramon Burns DO (resident doctor). Dr. KIMI Mosley MD, FRROSALBA have personally reviewed and interpreted this examination/study. This report was electronically signed by KIMI TELLO MD, FRCR ??on 10/11/2021 10:52 AM . Narrative 10/11/2021 10:52 AM PRODUCT DESIGN ENGINEER EXAMINATION: XR PELVIS 1 OR 2VW HISTORY: [...] Report dictated by Ramon Burns DO (resident doctor). I, Dr. KIMI TELLO MD, FRCR have personally reviewedand interpreted this examination/study. This report was electronically signed by KIMI TELLO MD, FRCR on 10/11/2021 10:52 AM . Lilliam Aguirre MD DIAGNOSTIC IMAGING O RDERABLES * BLOOD TYPE VERIFICATION (10/10/2021 7:08 PM PRODUCT DESIGN ENGINEER) ABO Rh O POS 10/10/2021 8:0 2 PM PRODUCT DESIGN ENGINEER [facility] Blood Bank BLOOD SPECIMEN / Unknown Lab Venipuncture / Unknown 10/10/2021 7:08 PM PRODUCT DESIGN ENGINEER 10/10/2021 7:11 PM PRODUCT DESIGN ENGINEER Lilliam Aguirre MD LAB - BLOOD BANK ORD ERABLES [facility] [address] [place] [address], [facility] [phone] * XR HIP 2+ VW LEFT (10/10/2021 6:55 PM PRODUCT DESIGN ENGINEER) Anatomical Region Laterality Modality Pelvis, Lower Extremity Radiogra [facility] 10/10/2021 7:17 PM PRODUCT DESIGN ENGINEER Impressions 10/11/2021 8:48 AM PRODUCT DESIGN ENGINEER IMPRESSION: 1.Fracture of the tibial condyles with involvement of the lateral tibial plateau and in the condylar eminence. There is depression of the lateral tibial plateau (approximately 9 mm). 2.Widening of lateral aspect of ankle joint is noted without definite fractures. Dictated by Andre Aguilar DO (resident doctor). I, Dr. KIMI TELLO MD, FR have personally reviewed and interpreted this examination/study. This report was electronically signed by KIMI TELLO MD, FRCR ??on 10/11/2021 8:48 AM . Narrative 10/11/2021 8:48 AM PRODUCT DESIGN ENGINEER EXAMINATION: XR ANKLE LEFT 3VW OR MORE, [...] MORE, XR KNEE LEFT 3VW, XR HIP [id number] OR MORE, XR TIBIA FIBULA LEFT 2VW [...] fractures. Dictated by Andre Aguilar DO (resident doctor). I, Dr. KIMI TELLO MD, FRCR have personally reviewedand interpreted this examination/study. This report was electronically signed by KIMI TELLO MD, FRCR on 10/11/2021 8:48 AM . Lilliam Aguirre MD DIAGNOSTIC IMAGING O RDERABLES * XR ANKLE 3+ VW LEFT (10/10/2021 6:55 PM PRODUCT DESIGN ENGINEER) Anatomical Region Laterality Modality Lower Extremity Radiographic Courtney ging 10/10/2021 7:17 PM PRODUCT DESIGN ENGINEER Impressions 10/11/2021 8:48 AM PRODUCT DESIGN ENGINEER IMPRESSION: 1.Fracture of the tibial condyles with involvement of the lateral tibial plateau and in the condylar eminence. There is depression of the lateral tibial plateau (approximately 9 mm). 2.Widening of lateral aspect of ankle joint is noted without definite fractures. Dictated by Andre Aguilar DO (resident doctor). I, Dr. KIMI TLELO MD, [facility] have personally reviewed and interpreted this examination/study. This report was electronically signed by KIMI TELLO MD, ROSALBA ??on 10/11/2021 8:48 AM . Narrative 10/11/2021 8:48 AM PRODUCT DESIGN ENGINEER EXAMINATION: XR ANKLE LEFT 3VW OR MORE, [...] MORE, XR KNEE LEFT 3VW, XR HIP [id number] OR MORE, XR TIBIA FIBULA LEFT 2VW [...] fractures. Dictated by Andre Aguilar DO (resident doctor). Dr. KIMI Mosley MD, FRROSALBA have personally reviewedand interpreted this examination/study. This report was electronically signed by KIMI TELLO MD, FRCR on 10/11/2021 8:48 AM . Lilliam Aguirre MD DIAGNOSTIC IMAGING O RDERABLES * XR TIBIA FIBULA LEFT 2VW (10/10/2021 6:54 PM PRODUCT DESIGN ENGINEER) Anatomical Region Laterality Modality Lower Extremity Radiographic Courtney ging 10/10/2021 7:17 PM PRODUCT DESIGN ENGINEER Impressions 10/11/2021 8:48 AM PRODUCT DESIGN ENGINEER IMPRESSION: 1.Fracture of the tibial condyles with involvement of the lateral tibial plateau and in the condylar eminence. There is depression of the lateral tibial plateau (approximately 9 mm). 2.Widening of lateral aspect of ankle joint is noted without definite fractures. Dictated by Andre Aguilar DO (resident doctor). Dr. KIMI Mosley MD, FRROSALBA have personally reviewed and interpreted this examination/study. This report was electronically signed by KIMI TELLO MD, FRCR ??on 10/11/2021 8:48 AM . Narrative 10/11/2021 8:48 AM PRODUCT DESIGN ENGINEER EXAMINATION: XR ANKLE LEFT 3VW OR MORE, [...] MORE, XR KNEE LEFT 3VW, XR HIP [id number] OR MORE, XR TIBIA FIBULA LEFT 2VW [...] fractures. Dictated by Andre Aguilar DO (resident doctor). I, Dr. KIMI TELLO MD, [facility] have personally reviewedand interpreted this examination/study. This report was electronically signed by KIMI TELLO MD, FRCR on 10/11/2021 8:48 AM . Lilliam Aguirre MD DIAGNOSTIC IMAGING O RDERABLES * PT-INR [facility] (10/10/2021 6:49 PM PRODUCT DESIGN ENGINEER) Pathologist [facility] PT 12.1 12.1 - 14.8 Seconds 10/10/2021 7:38 PM PRODUCT DESIGN ENGINEER [facility] INR 0.9 See Comment 10/10/2021 7:38 PM PRODUCT DESIGN ENGINEER [facility] Comment:The suggested therap eutic range for standard coumadin (warfarin) therapy is an INR of 2.0-3.0. For high-risk patients (Mechanical Mitral Valve Prosthesis, etc.), the suggested prophylactic therapeutic range is an INR of 2.5-3.5. Blood BLOOD SPECIMEN / Unknown Venipuncture / Unknown 10/10/2021 6:49 PM PRODUCT DESIGN ENGINEER 10/10/2021 7:28 PM PRODUCT DESIGN ENGINEER Lilliam Aguirre MD LAB - COAGULATION OR DERABLES [facility] [address] [place] [address], [facility] [phone] * (ABNORMAL) CBC W AUTO DIFFERENTIAL (10/10/2021 6:48 PM PRODUCT DESIGN ENGINEER) WBC 9.8 3.5 - 10.5 10? 3 /uL 10/10/2021 7:11 PM [facility] RBC 4.02 3.80 - 5.20 10? 6 /uL 10/10/2021 7:11 PM [facility] Hemoglobin 11.9(L) 12.0 - 15.6 g/dL 10/10/2021 7:11 PM [facility] Hematocrit 37.4 35.0 - 45.0 % 10/10/2021 7:11 PM [facility] MCV 93.0 80.7 - 98.3 fL 10/10/2021 7:11 PM [facility] MCH 29.6 26.7 - 34.0 pg 10/10/2021 7:11 PM [facility] MCHC 31.8 30.8 - 35.9 g/dL 10/10/2021 7:11 PM [facility] Platelet Count 294 150 - 400 10? 3 /uL 10/10/2021 7:11 PM [facility] RDW-SD 46.0 36.0 - 50.0 fL 10/10/2021 7:11 PM [facility] RDW-CV 13.4 11.2 - 14.8 % 10/10/2021 7:11 PM [facility] MPV 9.9 9.4 - 12.9 fL 10/10/2021 7:11 PM [facility] nRBC Absolute 0.00 0 10? 3 /uL 10/10/2021 7:11 PM [facility] nRBC Auto 0.0 0 /100 WBC 10/10/2021 7:11 PM [facility] Neutrophils % 66.2 35.0 - 70.0 % 10/10/2021 7:11 PM [facility] Lymphocytes % 21.3 20.0 - 43.0 % 10/10/2021 7:11 PM [facility] Monocytes % 10.2 5.0 - 13.0 % 10/10/2021 7:11 PM [facility] Eosinophils % 1.7 0.0 - 6.0 % 10/10/2021 7:11 PM [facility] Basophil % 0.3 0.0 - 2.0 % 10/10/2021 7:11 PM [facility] Neutrophils Absolute 6.5 1.6 - 7.0 10? 3 /uL 10/10/2021 7:11 PM [facility] Lymphocyte Absolute 2.1 1.1 - 3.9 10? 3 /uL 10/10/2021 7:11 PM [facility] Monocytes Absolute 1.00 0.26 - 1.07 10? 3 /uL 10/10/2021 7:11 PM [facility] Eosinophils Absolute 0.17 0.00 - 0.47 10? 3 /uL 10/10/2021 7:11 PM [facility] Basophils Absolute 0.03 0.00 - 0.08 10? 3 /uL 10/10/2021 7:11 PM [facility] Immature Granulocytes % 0.3 0.0 - 1.0 % 10/10/2021 7:11 PM [facility] Immature Granulocytes Absolute 0.03 10/10/2021 7:11 PM [facility] Blood BLOOD SPECIMEN / Unknown Venipuncture / Unknown 10/10/2021 6:48 PM PRODUCT DESIGN ENGINEER 10/10/2021 7:01 PM PRODUCT DESIGN ENGINEER Lilliam Aguirre MD LAB - HEMATOLOGY ORD ERABLES [facility] [address] [place] [address], [facility] [phone] * (ABNORMAL) COMPREHENSIVE METABOLIC PANEL (10/10/2021 6:48 PM PRODUCT DESIGN ENGINEER) BUN 19 7 - 26 mg/dL 10/10/2021 7:25 PM [facility] Creatinine 1.18(H) 0.56 - 0.96 mg/dL 10/10/2021 7:25 PM [facility] Sodium 142 136 - 145 mmol/L 10/10/2021 7:25 PM [facility] Potassium 3.7 3.5 - 4.5 mmol/L 10/10/2021 7:25 PM [facility] Chloride 106 98 - 107 mmol/L 10/10/2021 7:25 PM [facility] CO2 22 22 - 29 mmol/L 10/10/2021 7:25 PM [facility] Glucose 99 70 - 115 mg/dL 10/10/2021 7:25 PM [facility] Calcium 9.9 8.4 - 10.2 mg/dL 10/10/2021 7:25 PM [facility] Protein Total 6.8 6.0 - 8.3 g/dL 10/10/2021 7:25 PM [facility] Albumin 3.6 3.4 - 5.0 g/dL 10/10/2021 7:25 PM [facility] Bilirubin Total 0.2 0.2 - 1.2 mg/dL 10/10/2021 7:25 PM [facility] Alkaline Phosphatase 93 40 - 150 U/L 10/10/2021 7:25 PM [facility] ALT 24 5 - 55 U/L 10/10/2021 7:25 PM [facility] AST 30 5 - 34 U/L 10/10/2021 7:25 PM [facility] Anion Gap 18 8 - 18 10/10/2021 7:25 PM [facility] BUN/Creatinine Ratio 16 7 - 23 10/10/2021 7:25 PM [facility] Osmolality Calculated 296 270 - 300 mOsm/kg 10/10/2021 7:25 PM [facility] Albumin/Globulin Ratio 1.1 1.1 - 2.3 10/10/2021 7:25 PM [facility] eGFR by CKD-EPI 48(L) >=90 mL/min/1.7 3 m2 10/10/2021 7:25 PM [facility] Blood BLOOD SPECIMEN / Unknown Venipuncture / Unknown 10/10/2021 6:48 PM PRODUCT DESIGN ENGINEER 10/10/2021 7:01 PM [facility] Lilliam Aguirre MD LAB - CHEMISTRY [facility] Organization Address City/State/ZIP Co de Phone Number [facility] [address] [place] [phone], [facility] [phone] * CULTURE MRSA (09/25/2014 9:07 AM PRODUCT DESIGN ENGINEER) Culture MRSA Screen No Growth of Methicillin Resistant Staphylococcus aureus. [facility] Nasopharyngeal 09/25/2014 9: 07 AM PRODUCT DESIGN ENGINEER 09/25/2014 3:16 PM PRODUCT DESIGN ENGINEER Narrative [facility] - 09/26/2014 11:18 AM PRODUCT DESIGN ENGINEER Zackaryimen#[id number] Ashok Loc/Rm/Bed: OP SGPREOP// Historical Provider MD LAB - MICROBIOLOG Y ORDERABLES Performing Organization Address [facility]/State/[facility] Co de Phone Number [facility] [address] [phone] Care Teams Rotary Shear Worker Helper Relationship Specialty Start Date End Date Edy Aviles DO [address] [place] [address] PCP - General 06/17/22
--- OUTSIDE RECORDS SUMMARY | 2024-12-09 10:36 | XMS_ITS | Clinical Summary ---
Author Organization [facility] [address] Address [address] [place] [address] Care Team Providers Care Commutator Repairer Name Role Phone Per Samson MD Primary Care Provider [phone] Coretta Childers MD Unavailable [phone] Tima Henson MD Unavailable [phone] Allergies Active Allergy Reactions Criticality Noted Date [...] mouth 2 (two) times a day Active akzfglcx-rgk-QI-ly copen-lutein 0.4-300-250 mg-mcg-mcg tabletIndications: Vitamin Deficiency Prevention [...] 08/28/2023 Assessment & Plan (09/21/2023 9:12 AM SCHOOL OFFICE ASSISTANT): She is doing pretty well. Feels like [...] and proceed with this. Sinus node dysfunction ([facility]) 06/08/2023 Morbid (severe) obesity due to excess calories 0 06/01/2023 Body mass index 40.0-44.9, adult ([facility]) 06/01 Sleep-disordered breathing 09/07/2022 Status post placement of implantable loop record er 03/07/2022 Overview (03/07/2022): GivU Bio-monitor III Loop Recorder. Dx; Syncope, PSVT, AT, RVOT VT s/p ablation. DOI 03/05/2022-[facility]. RoomiePicsronik remote monitoring. Dizziness 08/19/2021 Lower extremity edema [...] (10/26/2020): Added automatically from request for surgery [id number] Migraine 08/10/2020 Assessment & Plan (08/10/2020 2:22 [...] neuralgia. Assessment & Plan (11/30/2019 1:53 PM SCHOOL OFFICE ASSISTANT): Ms. Palma has occipital neuralgia with reproduction [...] less. Assessment & Plan (10/02/2020 1:29 PM SCHOOL OFFICE ASSISTANT): Ms. Palma continues to do well clinically after posterior lumbar decompression fusion at L4-5. She has good alignment. There is no lucency around the hardware. We will continue to follow this over time. Assessment & Plan (11/30/2019 1:51 PM SCHOOL OFFICE ASSISTANT): Ms. Palma reports persistent numbness in her [...] (05/20/2019): Added automatically from request for surgery [id number] Assessment & Plan (01/22/2023 12:27 PM CDT): [...] physician. Assessment & Plan (01/08/2021 12:53 PM SCHOOL OFFICE ASSISTANT): Ms. Palma does not have pain referable [...] time. Assessment & Plan (10/02/2020 1:29 PM SCHOOL OFFICE ASSISTANT): Ms. Palma was improved after cervical decompression [...] hour to stretch. FOLLOW UP APPT: With PRODUCTION COUNTER in 4 weeks with AP/LAT Cervical spine films. Assessment & Plan (11/24/2018 11:40 AM SCHOOL OFFICE ASSISTANT): Patient has new onset symptoms of her [...] patient to schedule on her own at [facility]. We will await the CD to be mailed to our office for Dr. Palmer to review and provide further recommendations. She is to continue the same activity restrictions as outlined prior to surgery. Neuropathic pain 11/24/2018 Assessment & Plan (11/24/2018 11:42 AM SCHOOL OFFICE ASSISTANT): For her neuropathic pain and would have [...] (12/16/2018): Added automatically from request for surgery [id number] Cervical spinal stenosis 09/27/2018 Overview (09/27/2018): Added automatically from request for surgery [id number] HNP (herniated nucleus pulposus), lumbar 07/13/2018 03/02/2019 Overview (07/13/2018): Added automatically from request for surgery [id number] Encounters Date Type Department Care Team Description 11/25/2024 Telephone [facility] [address] [place] [phone] Jessica Shoemaker NP 11/18/2024 Orders Only [facility] [address] [place] [phone] Vy Pierce MD Status post placement of implantable loop recorder (Primary Dx); Paroxysmal supraventricular tachycardia (HCC); History of radiofrequency ablation (RFA) procedure for cardiac arrhythmia; Syncope and collapse; RVOT ventricular tachycardia (HCC) 11/14/2024 9:15 AM SCHOOL OFFICE ASSISTANT Ancillary Procedure [facility] [address] [place] [address] [place] [phone] Status post placement of implantable loop recorder (Primary Dx); NICM (nonischemic cardiomyopathy) (CMS/HCC) (HCC); NSVT (nonsustained ventricular tachycardia) (HCC) 10/28/2024 Telephone [facility] [address] [place] [phone] Jessica Shoemaker NP 10/27/2024 1:00 PM SCHOOL OFFICE ASSISTANT Ancillary Procedure [facility] [address] [facility] [address] [place] [phone] Syncope and collapse (Primary Dx); NICM (nonischemic cardiomyopathy) (CMS/HCC) (HCC); NSVT (nonsustained ventricular tachycardia) (HCC); Status post placement of implantable loop recorder; RVOT ventricular tachycardia (HCC); Paroxysmal supraventricular tachycardia (HCC) 10/27/2024 Orders Only [facility] [address] [place] [address] [place] [phone] Jessica Shoemaker NP Dizziness of unknown etiology 10/26/2024 Telephone [place] [address] [place] [phone] Vy Pierce MD 10/19/2024 Orders Only [facility] Health Information Management [address] [place] [phone] Jessica Shoemaker NP 10/10/2024 Telephone [place] [address] [place] [phone] Jessica Shoemaker NP Dizziness 09/26/2024 8:30 AM SCHOOL OFFICE ASSISTANT Office Visit [facility] [address] [place] [address] [place] [phone] Jessica Shoemaker NP Syncope and collapse (Primary Dx); Status post placement of implantable loop recorder; Lower extremity edema; cardiomyopathy; RVOT ventricular tachycardia (HCC); History of radiofrequency ablation (RFA) procedure for cardiac arrhythmia 09/26/2024 8:15 AM SCHOOL OFFICE ASSISTANT Ancillary Procedure [facility] [address] [facility] [address] [place] [phone] Paroxysmal supraventricular tachycardia (HCC) (Primary Dx); NICM (nonischemic cardiomyopathy) (CMS/HCC) (HCC); NSVT (nonsustained ventricular tachycardia) (HCC); Status post placement of implantable loop recorder; RVOT ventricular tachycardia (HCC); Syncope and collapse 09/26/2024 Orders Only [facility] [address] [facility] [address] [place] [phone] Vy Pierce MD NICM (nonischemic cardiomyopathy) [...] meds. Anxiety and depression History of cardiomyopathy 2007 peripa rtum with last EF 61% in [...] on file Legal Sex Female 11:06 AM SCHOOL OFFICE ASSISTANT Gender Identity Not on file Sexual Orientation Not on file Obstetrics History Last Filed Vital Signs Vital Sign Reading Time Taken Comments Blood Pressure 112/64 09/26/2024 8:40 AM SCHOOL OFFICE ASSISTANT Pulse 105 09/26/2024 8:40 AM SCHOOL OFFICE ASSISTANT Temperature 36.4 ??C (97.5 ??F) 09/07/2023 10:05 AM C DT Respiratory Rate 18 09/15/2023 9:25 AM SCHOOL OFFICE ASSISTANT Oxygen Saturation 97% 09/26/2024 8:40 AM SCHOOL OFFICE ASSISTANT Inhaled Oxygen Concentration - - Weight 77.1 kg (170 lb) 09/26/2024 8:40 AM SCHOOL OFFICE ASSISTANT Height 154.9 cm (5' 1 ) 09/26/2024 8:40 AM SCHOOL OFFICE ASSISTANT Body Mass Index 32.12 09/26/2024 8:40 AM SCHOOL OFFICE ASSISTANT Plan of Treatment Health Maintenance Due Date Last Done Comments Breast Cancer Screening-Mammogram 1956 Colon Cancer Screening-Colonoscopy 1955 Depression Screening 1955 Osteoporosis Screening-Bone Density Scan 1956 Hepatitis B Screening 1974 Lung Cancer Screening 2006 Well Visit 65+ 2021 Covid-19 Vaccine ( season) 2024 09/08/2021, 03/05/2021, 02/05/2021 Influenza Vaccine (#1) 2024 2, 08/29/2021, 08/26/2020 Fall Risk Assessment 09/07/2024 09/07/2023 DTaP/Tdap/Td Vaccine (2 - Td or Tdap) 09/04/2032 Hepatitis C Screening Completed 10/15/2018 Zoster Vaccine Completed 11/20/2020, 09/21/2020 Pneumococcal vaccine 65+ Completed 01/24/2022 Medical Devices Implanted Type Area Rn Ccu Device Identifier Shelf Expiration Date Model / Serial / Lot Loop Recorder RoomiePicsroniInterview Rocket Biomonitor Iii-Left Upper Chest Chest Knee Arthroplasty Right: Knee Left Lower Leg Hardware From Fracture Left: Leg [employer] Inc Os-201 Hemasorb Spatula Wax 2gm Bone Sterile - [id number] Implanted:Qty: 1 on 10/15/2018 by Elvin Palmer MD at [facility] N/A: Spine Cervical [employer] Inc 10/08/2020 OS-201 / / [id number] [employer] 3d Cervical 14.9h34f5lb 7 Deg - [id number] Implanted:Qty: 1 on 10/15/2018 by Elvin Palmer MD at [facility] N/A: Spine Cervical Core Link [id number] 12/02/2022 [id number] / / [id number] Core Link Anodyne 12mm Level 1 Spine Cervical Anterior Plate Bone - [id number] Implanted:Qty: 1 on 10/15/2018 by Elvin Palmer MD at [facility] N/A: Spine Cervical Core Link / / Core Link Anodyne 4mm 14mm Variable Angle Self Tap Spine Cervical Screw - [id number] Implanted:Qty: 4 on 10/15/2018 by Elvin Palmer MD at [facility] N/A: Spine Cervical Core Link / / Screw Bone Biased Angle L14 Mm Od3.5 Mm Cephelad Caudal Nonsterile Posterior Occipital Cervical Thoracic System 3500 Series - [id number] Implanted:Qty: 4 on 01/20/2019 by Elvin Palmer MD at [facility] N/A: Spine Cervical Core Link 62450-83 / / Screw Set Spinal 3500 Series - [id number] Implanted:Qty: 4 on 01/20/2019 by Elvin Palmer MD at [facility] N/A: Spine Cervical Core Link [id number] / / Core Link [id number] Freedom 3.5mm 50mm Line Prebent Jin Spinal Nonsterile 3500 Series - [id number] Implanted:Qty: 1 on 01/20/2019 by Elvin Palmer MD at [facility] N/A: Spine Cervical Core Link [id number] / / Core Link 20021-45 Freedom Screw Set 5500 Series - Sna - [id number] Implanted:Qty: 4 on 06/20/2019 by Elvin Palmer MD at [facility] N/A: Back Core Link 19752-44 / NA / Core Link [id number] Freedom 5.5mm 35mm Line Prebent Jin Spinal Nonsterile 5500 Series - Sns - [id number] Implanted:Qty: 2 on 06/20/2019 by Elvin Palmer MD at [facility] N/A: Back Core Link [id number] / NS / [employer] [id number] Inqu Paste Mix Plus Peer Educator 10cc Bone Graft Hyaluronic Acid Poly - Sna - [id number] Implanted:Qty: 1 on 06/20/2019 by Elvin Palmer MD at [facility] N/A: Back Isto [employer]athe[employer] [id number] 01/19/2021 [id number] / NA / [id number] Core Link 44492-98 Freedom 6.5mm 40mm Spine Pedicle Screw Bone 5500 Series - Sna - [id number] Implanted:Qty: 4 on 06/20/2019 by Elvin Palmer MD at [facility] N/A: Back Core Link 32968-60 / NA / CaseRevapedics Inc 700-025 I Factor Allograft Putty Syringe Graft 2.5cc Bone - [id number] Implanted:Qty: 1 on 11/26/2020 by Elvin Palmer MD at [facility] N/A: Spine Cervical Cerapedics Inc 09/08/2023 700-025 / / [id number] Cage [employer] 3d Cervical 14.5x10n9uk 7 Deg - [id number] Implanted:Qty: 1 on 11/26/2020 by Elvin Palmer MD at [facility] N/A: Spine Cervical Core Link 10/25/2024 [id number] / / [id number] Core Link Anodyne 12mm Level 1 Spine Cervical Anterior Plate Bone - [id number] Implanted:Qty: 1 on 11/26/2020 by Elvin Palmer MD at [facility] N/A: Spine Cervical Core Link / / Core Link Anodyne 4mm 14mm Variable Angle Self Tap Spine Cervical Screw - [id number] Implanted:Qty: 4 on 11/26/2020 by Elvin Palmer MD at [facility] N/A: Spine Cervical Core Link / / Procedures Procedure Name Priority Date/Time Associated Diagnosis Comments DEVICE CHECK - REMOTE Routine 11/18/2024 12:03 PM SCHOOL OFFICE ASSISTANT NICM (nonischemic cardiomyopathy) (CMS/HCC) (HCC) NSVT (nonsustained ventricular tachycardia) (HCC) DEVICE CHECK - REMOTE Routine 10/27/2024 6:13 PM SCHOOL OFFICE ASSISTANT NICM (nonischemic cardiomyopathy) (CMS/HCC) (HCC) NSVT (nonsustained ventricular tachycardia) (HCC) SCAN - RADIOLOGY/IMAGING 10/19/2024 DEVICE CHECK - REMOTE Routine 09/26/2024 9:32 AM SCHOOL OFFICE ASSISTANT NICM (nonischemic cardiomyopathy) (CMS/HCC) (HCC) NSVT (nonsustained ventricular tachycardia) (HCC) HEPATITIS C ANTIBODY STAT 10/15/2018 11:20 AM SCHOOL OFFICE ASSISTANT from Last 3 Months or Most Recently Relevant to Health Maintenance Results * DEVICE CHECK - REMOTE (11/18/2024 12:03 PM SCHOOL OFFICE ASSISTANT) Anatomical Region Laterality Modality Other Narrative 12/08/2024 3:50 PM SCHOOL OFFICE ASSISTANT Biotronik lllm implanted on March 05, 2022 [...] to monitor remotely. ?? Bandar Jordan Device Cam Specialist us [facility] Chelly Pierce MD CV CARDIAC SERVICES PRO CEDURES Final Result * DEVICE CHECK - REMOTE (10/27/2024 6:13 PM SCHOOL OFFICE ASSISTANT) Anatomical Region Laterality Modality Other Narrative 10/28/2024 8:21 AM SCHOOL OFFICE ASSISTANT GivU Bio-monitor III Loop Recorder. Dx; Syncope, PSVT, AT, RVOT VT s/p ablation. DOI 03/05/2022-[facility]. RoomiePicsronik remote monitoring. Unscheduled ILR remote due to [...] Anatomical Region Laterality Modality Other Jessica Shoemaker PRODUCTION COUNTER Final Res ult * DEVICE CHECK - REMOTE (09/26/2024 9:32 AM SCHOOL OFFICE ASSISTANT) Anatomical Region Laterality Modality Other Narrative 10/28/2024 9:20 AM SCHOOL OFFICE ASSISTANT GivU Bio-monitor III Loop Recorder. Dx; Syncope, PSVT, AT, RVOT VT s/p ablation. DOI 03/05/2022-[facility]. RoomiePicsronik remote monitoring. Routine ILR remote. Normal device [...] * Hepatitis C antibody (10/15/2018 11:20 AM SCHOOL OFFICE ASSISTANT) Hep C Ab Non-Reactiv e Non-Reactiv e [facility] Blood specimen (specimen) 10/15/2018 11:20 AM SCHOOL OFFICE ASSISTANT 10/15/2018 11:41 AM SCHOOL OFFICE ASSISTANT Narrative [facility] - 10/15/2018 12:25 PM SCHOOL OFFICE ASSISTANT us Notinfile Unknown LAB MICROBIOLOGY - GENERAL ORD ERABLES Final Result [facility] Mann[employer] Tamar Laboy Department [place] [address] from Last 3 Months or Most Recently Relevant to Health Maintenance Insurance MEDICARE [facility] MEDICARE [employer] MEDICARE [facility] Address: [address] [address] [place] [address] [employer] SENIOR SUPPLEMENT Advance Directives For more information, please contact: [phone] * Full Code (Latest Code Status on File) Date Activated Date Inactivated Comments 09/07/2023 10:10 AM 09/07/2023 2:44 PM * Full Code Date Activated Date Inactivated Comments 06/20/2019 12:01 PM 06/20/2019 6:34 PM * Full Code Date Activated Date Inactivated Comments 10/15/2018 2:08 PM 10/15/2018 4:39 PM * Full Code Date Activated Date Inactivated Comments 07/16/2018 2:30 PM 07/16/2018 6:36 PM Care Teams Commutator Repairer Relationship Specialty Start Date End Date Per Samson MD PCP - General Family Practice 06/01/23 Coretta Childers MD Consulting Physician Cardiology 08/28/23 Tima Henson MD [address] [place] [address] [place] [address] Consulting Physician Otolaryngology 08/28/23
--- NOTE | 2024-12-09 12:06 | ED.GENADULT ---
HPI - General Adult General Chief complaint: Unspecified <Maryanne Smith PA-C - Last Filed: 12/10/24 14:45> Stated complaint: multiple complaints <Maryanne Smith PA-C - Last Filed: 12/10/24 14:45> Time Seen by Provider: 12/09/24 12:06 <Maryanne Smith PA-C - Last Filed: 12/10/24 14:45> Focused HPI: This is a 69 year old female that presents to the emergency department with multiple complaints. Reporting abdominal pain, back pain, loose stools. This is been ongoing over the last several months. She has been seen by her primary provider for this and had outpatient imaging. Patient has been on oral antibiotics for diverticulitis with little relief. GENERAL: Well-appearing, well-nourished, and in no acute distress. HEAD: Normocephalic, atraumatic. CHEST: Clear to auscultation. ?No respiratory distress. HEART: Regular rate and rhythm.? NEURO: ?Alert and oriented x3. Patient screened in triage and initial orders placed.? ?Additional care and disposition to be based upon?diagnostic testing and treatment. <Maryanne Smith PA-C - Last Filed: 12/10/24 14:45> Source: patient <Garcia Rasmussen MD - Last Filed: 12/09/24 17:07> History of Present Illness HPI narrative: 69 years old white female came with multiple symptoms including dizzy spells, passing out, urinary tract infection symptoms and currently on antibiotic without improvement, kidney stone, she is telling me that she have infection of the liver and abscess. Patient had quite a bit of workup as outpatient including CT scan and MRI and x-ray and blood workup and urinalysis, had a phone call by her family physician today to go to the emergency room for further evaluation. Patient is telling me that it she have abscess on the liver and fracture of the spine and ribs of unknown etiology. <Garcia Rasmussen MD - Last Filed: 12/09/24 17:07> Related Data Home medications: Home Medications ?Medication ?Instructions ?Recorded ?Confirmed ?Last Taken ?Type dcukqeuf-ltn-yucbw acid 0.4 1 tablet PO DAILY 01/12/20 12/09/24 06/08/20 History mg-lycopene 300 mcg-lutein 250 mcg tablet (Centrum Silver) cyclosporine 0.05 % eye drops in a 1 drp EACH EYE Q12H 06/13/21 12/09/24 03/05/22 History dropperette (Restasis) mineral oil 15 ml PO DAILY 05/19/22 12/09/24 Unknown History polyethylene glycol 3350 17 gram 17 g PO DAILY 05/19/22 12/09/24 Unknown History oral powder packet (Miralax) bumetanide 1 mg tablet 2 mg PO DAILY 12/30/23 12/09/24 Unknown History metolazone 2.5 mg tablet 2.5 mg PO EVERY OTHER DAY 12/30/23 12/09/24 Unknown History calcium 600 mg (as carbonate)-vit 1 tablet PO DAILY 11/16/24 12/09/24 Unknown History D3 20 mcg (800 unit) chewable tablet (Caltrate plus D) potassium chloride 20 mEq 20 meq PO BID 12/09/24 12/09/24 Unknown History tablet,extended release psyllium husk 3.4 gram/5.4 gram 1 tbsp PO DAILY 12/09/24 12/09/24 Unknown History oral powder (Metamucil) <Maryanne Smith PA-C - Last Filed: 12/10/24 14:45> Allergies/adverse reactions: Allergies Allergy/AdvReac Type Severity Reaction Status Date / Time codeine Allergy Intermediate Hives Verified 12/09/24 10:25 <Maryanne Smith PA-C - Last Filed: 12/10/24 14:45> Review of Systems Review of Systems: All systems reviewed & are unremarkable except as noted in HPI and below <Garcia Rasmussen MD - Last Filed: 12/09/24 17:07> [facility] Past Medical History Medical History: Medical History Atrial tachycardia atrial tachycardia and right ventricular outflow tract tachycardia status post ablation x3 at [facility] 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46 no issue since with an EF of 69% Esophageal web Diverticulitis Vaginal fistula Insomnia Anxiety Hypertension Neuropathy Rosacea Migraine Herniated disc Headache Depression Osteoporosis <Maryanne Smith PA-C - Last Filed: 12/10/24 14:45> Surgical History Surgical History: Surgical History History of lumbar surgery (06/2019) History of left salpingo-oophorectomy for benign cyst History of colonoscopy with polypectomy History of cervical spinal surgery History of cardiac radiofrequency ablation (2008) Ablation x3 for atrial tachycardia and right ventricle outflow tract tachycardia done at [facility] History of nasal surgery History of foot surgery (2015) repair of torn ligament in right foot History of knee replacement procedure of right knee (09/2014) revision-poly exchange 06/11/2020 History of hemorrhoidectomy (10/2012) History of (04/2001) <Maryanne Smith PA-C - Last Filed: 12/10/24 14:45> Family History Family History: Family History Father Cerebrovascular accident Family history of heart disease in male family member before age 55 Hypertension Family history of lung cancer Sibling Family history of heart disease in male family member before age 55 Mother Cancer Other Family history of cardiovascular disease <Maryanne Smith PA-C - Last Filed: 12/10/24 14:45> Social History Social History: Social History Social History: Surrogate medical decision maker: Dio Andrade, son. Code status: Full code. Smoking packs per day: 0.5 Smoking cigarettes per day: 10.0 Years smoked: 50 Smoking pack-years: 25.00 Smoking status: Current every day smoker Tobacco type: cigarettes Second hand tobacco smoke exposure: Yes Alcohol intake: never Substance use: never Substance use type: does not use Do You Feel Safe in your Home?: Yes Lack of Transportation: No Lack of Food: Never True Current Housing: I Have Housing Concerned About Future Housing: No Difficulty Paying Gas/Electric Bills: No Difficulty Paying for Meds: No Currently Unemployed: No Education: Decline to Answer Difficulty w/ Childcare or Family Care: No Living arrangements: with family Additional living arrangements comments: . Spiritual care concerns: No <Maryanne Smith PA-C - Last Filed: 12/10/24 14:45> Exam Narrative: General appearance: Well-developed, well-nourished Skin: Normal color Head: Normocephalic, nontraumatic Eyes: Clear conjunctiva ENT: Oropharynx normal, ears normal, nose normal Neck: Supple, nontender Chest and respiratory: Airway patent, no respiratory distress, no accessory muscle use Heart: Regular rate/rhythm Abdomen: Soft, diffuse abdominal tenderness, no guarding or rebound, no organomegaly, quiet bowel sounds Vascular: Normal peripheral pulses, normal capillary refill. Musculoskeletal: Diffuse back pain all over, no bruises, no swelling, no rash Neurologic: Alert and oriented ?3, [employer] is normal as tested, no gross motor deficit <Garcia Rasmussen MD - Last Filed: 12/09/24 17:07> Course Course Emergency Course: <Garcia Rasmussen MD - Last Filed: 12/09/24 17:07> Consultations Consultation #1: DR VARGAS <Garcia Rasmussen MD - Last Filed: 12/09/24 17:07> Date: 12/09/24 <Garcia Rasmussen MD - Last Filed: 12/09/24 17:07> Time: 17:06 <Garcia Rasmussen MD - Last Filed: 12/09/24 17:07> Vital Signs Vital signs: Vital Signs Temperature 98.0 F 12/09/24 10:40 Pulse Rate 99 12/09/24 10:40 Respiratory Rate 16 12/09/24 10:40 Blood Pressure 98/50 L 12/09/24 10:40 Pulse Oximetry 100 12/09/24 10:40 Temperature 97.6 F 12/10/24 06:00 Pulse Rate 81 12/10/24 06:00 Respiratory Rate 16 12/10/24 06:00 Blood Pressure 102/53 L 12/10/24 06:00 Pulse Oximetry 98 12/10/24 12:52 Oxygen Delivery Room Air 12/10/24 12:52 <Maryanne Smith PA-C - Last Filed: 12/10/24 14:45> Vital Signs Temperature 98.0 F 12/09/24 10:40 Pulse Rate 99 12/09/24 10:40 Respiratory Rate 16 12/09/24 10:40 Blood Pressure 98/50 L 12/09/24 10:40 Pulse Oximetry 100 12/09/24 10:40 Temperature 97.6 F 12/10/24 06:00 Pulse Rate 81 12/10/24 06:00 Respiratory Rate 16 12/10/24 06:00 Blood Pressure 102/53 L 12/10/24 06:00 Pulse Oximetry 98 12/10/24 12:52 Oxygen Delivery Room Air 12/10/24 12:52 <Garcia Rasmussen MD - Last Filed: 12/09/24 17:07> Medical Decision Making MDM Narrative Medical decision making narrative: Patient came with multiple symptoms Vital signs showing blood pressure 98/50 otherwise normal Physical examination showing diffuse abdominal tenderness and back tenderness and chest tenderness Differential diagnosis include malignancy with metastasis, diverticulitis, cholecystitis, urinary tract infection, electrolyte imbalance, dehydration Blood workup today includes CBC, CMP, lipase showed Urinalysis showed CT chest abdomen pelvis with IV contrast showed <Garcia Rasmussen MD - Last Filed: 12/09/24 17:07> Differential Diagnosis Differential Diagnosis: As above <Garcia Rasmussen MD - Last Filed: 12/09/24 17:07> Vital Signs Vital Signs: Vital Signs Temperature 98.0 F 12/09/24 10:40 Pulse Rate 99 12/09/24 10:40 Respiratory Rate 16 12/09/24 10:40 Blood Pressure 98/50 L 12/09/24 10:40 Pulse Oximetry 100 12/09/24 10:40 Temperature 97.6 F 12/10/24 06:00 Pulse Rate 81 12/10/24 06:00 Respiratory Rate 16 12/10/24 06:00 Blood Pressure 102/53 L 12/10/24 06:00 Pulse Oximetry 98 12/10/24 12:52 Oxygen Delivery Room Air 12/10/24 12:52 <Maryanne Smith PA-C - Last Filed: 12/10/24 14:45> Vital Signs Temperature 98.0 F 12/09/24 10:40 Pulse Rate 99 12/09/24 10:40 Respiratory Rate 16 12/09/24 10:40 Blood Pressure 98/50 L 12/09/24 10:40 Pulse Oximetry 100 12/09/24 10:40 Temperature 97.6 F 12/10/24 06:00 Pulse Rate 81 12/10/24 06:00 Respiratory Rate 16 12/10/24 06:00 Blood Pressure 102/53 L 12/10/24 06:00 Pulse Oximetry 98 12/10/24 12:52 Oxygen Delivery Room Air 12/10/24 12:52 <Garcia Rasmussen MD - Last Filed: 12/09/24 17:07> Lab Data Result diagrams: 12/10/24 06:21 12/10/24 06:21 <Maryanne Smith PA-C - Last Filed: 12/10/24 14:45> Labs: Lab Results 12/09/24 12/09/24 12/09/24 Range/Units 12:54 12:55 13:50 WBC 11.7 H (4.5-10.0) K/mm3 RBC 4.36 (4.2-5.4) M/mm3 Hgb 12.0 (12.0-15.0) g/dL Hct 36.7 L (37.0-47.0) % MCV 84.2 (80-100) fl MCH 27.5 (26-34) pg MCHC 32.7 (32-36) g/dl RDW 20.4 H (11.5-14.5) % Plt Count 376 H (150-375) k/mm3 MPV 10.0 (7.4-10.4) fl Immature Gran % (Auto) 0.5 (0-0.5) % Neut % (Auto) 79.8 H (45.5-73.1) % Lymph % (Auto) 12.7 L (18.3-44.2) % [place] % (Auto) 6.3 (2.6-8.5) % Eos % (Auto) 0.4 (0-4.4) % Baso % (Auto) 0.3 (0.2-1.2) % Lymph # (Auto) 1.48 (0.9-3.2) K/mm3 [place] # (Auto) 0.7 H (0.1-0.6) K/mm3 Eos # (Auto) 0.1 (0-0.3) K/mm3 Baso # (Auto) 0.0 (0.0-0.1) K/mm3 Abs Immat Gran (auto) 0.06 H (0.00-0.031) K/mm3 Absolute Neuts (auto) 9.3 H (1.3-6.7) K/mm3 Absolute Nucleated RBC 0.000 (0.0-0.012) K/mm3 Nucleated RBC % 0.0 (0.0-0.2) % ESR 17 (0-20) mm/hr PT 14.0 (11.1-14.7) Seconds INR 1.0 APTT 27.3 (22.3-36.8) Seconds Sodium 129 L (137-145) mmol/L Potassium 3.5 (3.4-5.0) mmol/L Chloride 89 L (98-107) mmol/L Carbon Dioxide 31 H (22-30) mmol/L Anion Gap 9 (4-12) mmol/L BUN 17 (7-17) mg/dL Creatinine 0.94 (0.7-1.0) mg/dL Estim Creat Clear Calc 45 ml/min Estimated GFR 59 (59 - ) Glucose 81 (65-110) mg/dL Lactic Acid 1.9 (0.7-2.0) mmol/L Calcium 9.6 (8.4-10.2) mg/dL Total Bilirubin 0.8 (0.2-1.3) mg/dL AST 94 H (14-36) U/L ALT 79 H (6-35) U/L Alkaline Phosphatase 198 H (38-126) U/L C-Reactive Protein 20.1 H (<1.0) mg/dL Total Protein 7.0 (6.3-8.2) g/dL Albumin 3.3 L (3.5-5.1) g/dL Lipase 109 (23-300) U/L Urine Color Yellow (Yellow) Urine Appearance Turbid H (Clear) Urine pH 6.0 (5.0-9.0) Ur Specific [place] 1.015 (1.001-1.035) Urine Protein 2+ H (Negative) mg/dL Urine Glucose (UA) Negative (Negative) mg/dL Urine Ketones Negative (Negative) mg/dL Ur Blood (Man) 1+ H (Negative) Urine Nitrate Negative (Negative) Urine Bilirubin Negative (Negative) Urine Urobilinogen 1.0 (<2.0) mg/dL Leukocyte Esterase Rfl 3+ H (Negative) TOY/UL Urine RBC 6-10 H (0-2) /hpf Urine WBC >100 H (0-3) /hpf Ur Squamous Epith Cells Few (Few) /hpf Urine Bacteria Rare /hpf Urine Casts 0-2 <Maryanne L. Smith, PA-C - Last Filed: 12/10/24 14:45> Lab Results 12/09/24 12/09/24 12/09/24 Range/Units 12:54 12:55 13:50 WBC 11.7 H (4.5-10.0) K/mm3 RBC 4.36 (4.2-5.4) M/mm3 Hgb 12.0 (12.0-15.0) g/dL Hct 36.7 L (37.0-47.0) % MCV 84.2 (80-100) fl MCH 27.5 (26-34) pg MCHC 32.7 (32-36) g/dl RDW 20.4 H (11.5-14.5) % Plt Count 376 H (150-375) k/mm3 MPV 10.0 (7.4-10.4) fl Immature Gran % (Auto) 0.5 (0-0.5) % Neut % (Auto) 79.8 H (45.5-73.1) % Lymph % (Auto) 12.7 L (18.3-44.2) % [place] % (Auto) 6.3 (2.6-8.5) % Eos % (Auto) 0.4 (0-4.4) % Baso % (Auto) 0.3 (0.2-1.2) % Lymph # (Auto) 1.48 (0.9-3.2) K/mm3 [place] # (Auto) 0.7 H (0.1-0.6) K/mm3 Eos # (Auto) 0.1 (0-0.3) K/mm3 Baso # (Auto) 0.0 (0.0-0.1) K/mm3 Abs Immat Gran (auto) 0.06 H (0.00-0.031) K/mm3 Absolute Neuts (auto) 9.3 H (1.3-6.7) K/mm3 Absolute Nucleated RBC 0.000 (0.0-0.012) K/mm3 Nucleated RBC % 0.0 (0.0-0.2) % ESR 17 (0-20) mm/hr PT 14.0 (11.1-14.7) Seconds INR 1.0 APTT 27.3 (22.3-36.8) Seconds Sodium 129 L (137-145) mmol/L Potassium 3.5 (3.4-5.0) mmol/L Chloride 89 L (98-107) mmol/L Carbon Dioxide 31 H (22-30) mmol/L Anion Gap 9 (4-12) mmol/L BUN 17 (7-17) mg/dL Creatinine 0.94 (0.7-1.0) mg/dL Estim Creat Clear Calc 45 ml/min Estimated GFR 59 (59 - ) Glucose 81 (65-110) mg/dL Lactic Acid 1.9 (0.7-2.0) mmol/L Calcium 9.6 (8.4-10.2) mg/dL Total Bilirubin 0.8 (0.2-1.3) mg/dL AST 94 H (14-36) U/L ALT 79 H (6-35) U/L Alkaline Phosphatase 198 H (38-126) U/L C-Reactive Protein 20.1 H (<1.0) mg/dL Total Protein 7.0 (6.3-8.2) g/dL Albumin 3.3 L (3.5-5.1) g/dL Lipase 109 (23-300) U/L Urine Color Yellow (Yellow) Urine Appearance Turbid H (Clear) Urine pH 6.0 (5.0-9.0) Ur Specific [place] 1.015 (1.001-1.035) Urine Protein 2+ H (Negative) mg/dL Urine Glucose (UA) Negative (Negative) mg/dL Urine Ketones Negative (Negative) mg/dL Ur Blood (Man) 1+ H (Negative) Urine Nitrate Negative (Negative) Urine Bilirubin Negative (Negative) Urine Urobilinogen 1.0 (<2.0) mg/dL Leukocyte Esterase Rfl 3+ H (Negative) TOY/UL Urine RBC 6-10 H (0-2) /hpf Urine WBC >100 H (0-3) /hpf Ur Squamous Epith Cells Few (Few) /hpf Urine Bacteria Rare /hpf Urine Casts 0-2 <Garcia Rasmussen MD - Last Filed: 12/09/24 17:07> Imaging Data Radiologist's impression: Impressions Chest/Abdomen/Pelvis CT 12/09/24 16:19 IMPRESSION: 1. Bone lesions, consistent with metastatic disease. Consider CT-guided biopsy of the right ilium. 2. Left lung nodules and left hilar and mediastinal lymphadenopathy, which may be infection or metastatic disease. 3. Left-sided pyelonephritis. 4. Liver masses measuring up to 2.1 cm suspicious for abscesses. 5. 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 No drainable fluid. <Garcia Rasmussen MD - Last Filed: 12/09/24 17:07> Critical Care Time Critical Care Time Critical Care Time: No <Maryanne Smith PA-C - Last Filed: 12/10/24 14:45> Discharge Plan Discharge Clinical Impression: Metastasis to bone, Acute pyelonephritis, Diverticulitis, Liver mass <Maryanne Smith PA-C - Last Filed: 12/10/24 14:45> Patient Disposition: Still a Patient <RASHAUN Dumont Last Filed: 12/10/24 14:45> Condition: Stable <RASHAUN Dumont Last Filed: 12/10/24 14:45>
--- OUTSIDE RECORDS SUMMARY | 2024-12-09 12:15 | XMS_ITS | Encounter Summary ---
Author Organization [facility] Address [address] [place] [address] Care Team Providers Care Electronic Equipment Maint Tech Name Role Phone Zafar Reddy MD Primary Care Provider [phone] Sung Mullen MD Primary Care Provider [phone] Zafar Redyd MD Primary Care Provider [phone] Sung Mullen MD Primary Care Provider [phone] Zafar Reddy MD Primary Care Provider [phone] Sung Mullen MD Primary Care Provider [phone] Edy Aviles DO Primary Care Provider [phone] Per Samson MD Primary Care Provider [phone] Coretta Childers MD Unavailable [phone] Tima Henson MD Unavailable [phone] Encounter Details Date Type Department Care Team (Late st Contact Info) Description 03/13/2017 Orders Only [facility] ProviderKamran MD [address] [place] [id number] Social History Tobacco Use Types Packs/Day Years Used Date Smoking Tobacco: Every Day Alcohol Use Standard Drinks/Week Comments No 0 (1 standard drink = 0.6 oz pur e alcohol) Comments Unknown Sex and Gender Information Value Date Recorded Sex Assigned at Not on file Legal Sex Female 11:06 AM [employer] Gender Identity Not on file Sexual Orientation [...] on filedocumented in this encounter Care Teams Electronic Equipment Maint Tech Relationship Specialty Start Date End Date Zafar Reddy MD [address] [place] [id number] PCP - General 06/10/12 11/12/20 Sung Mullen MD [address] [place] [id number] PCP - General 11/13/20 11/15/20 Zafar Reddy MD [address] [place] [id number] PCP - General 11/16/20 11/22/20 Sung Mullen MD [address] [place] [id number] PCP - General 11/23/20 11/25/20 Zafar Reddy MD [address] [place] [id number] PCP - General 11/26/20 05/20/21 Sung Mullen MD [address] [place] [address] PCP - General Internal Medicine 05/21/21 06/04/22 Edy Aviles DO [address] [place] [address] PCP - General Internal Medicine 06/05/22 05/31/23 Per Samson MD [address] [place] [address] PCP - General Family Practice 06/01/23 Coretta Childers MD [address] [place] [address] Consulting Physician Cardiology 08/28/23 Tima Henson MD [address] [place] [address] Consulting Physician Otolaryngology 08/28/23 documented as of this encounter
--- OUTSIDE RECORDS SUMMARY | 2024-12-09 12:15 | XMS_ITS | Clinical Summary ---
Author Organization [facility] Address [address] [place] [address] Care Team Providers Care Support Specialist Name Role Phone Edy Aviles DO Primary Care Provider [phone] Source Comments [facility],non-owned Affiliates and Associated Physician Practices is amultiple site organization consisting of ambulatory clinics and hospital sitesin [place], [place], [place] and [place]. This disclosure is being madepursuant to the Care Everywhere program and may not contain all information available regarding this patient. Last updated 18.[facility] Allergies Active Allergy Reactions Criticality Noted Date [...] Immunizations Name Administration Dates Next Due Ian [email or web address] primary monoval ent 12+ yr 0.3mL Purple [...] Comments Blood Pressure 148/57 10/26/2021 7:27 AM VERTICAL BORER Pulse 95 10/26/2021 7:27 AM VERTICAL BORER Temperature 36.8 ??C (98.3 ??F) 10/26/2021 7:27 AM CS T Respiratory Rate 16 10/25/2021 10:58 PM VERTICAL BORER Oxygen Saturation 100% 10/26/2021 7:27 AM VERTICAL BORER Inhaled Oxygen Concentration 40% 10/25/2021 1 2:10 PM VERTICAL BORER Weight 85.7 kg (189 lb) 07/08/2022 9:04 [...] 3-4 weeks. Medical Devices Implanted Type Area Licensed Massage Practitioner Device Identifier Shelf Expiration Date Model / Serial / Lot Pin Hlf 255mm 5mm Jtx Lng Ss 35mm Extfix Implanted:Qty: 2 on 10/11/2021 by Jovon Maloney, DO at [facility] Left: Tibia Olmos [employer] Nephew Trauma [id number] / / Pin Hlf 40mm 5mm Jtx Lng Ti Ntrd Extfix Implanted:Qty: 2 on 10/11/2021 by Jovon Maloney, DO at [facility] Left: Tibia [employer]hew Trauma [id number] / / Bar Extfix 200mm Jtx Cfbr Nonster Disp Implanted:Qty: 2 on 10/11/2021 by Jovon Maloney DO at [facility] Left: Tibia [employer]hew Trauma [id number] / / Screw 3.5mm 46mm Ft Hex Drv Nlckg Fly Implanted:Qty: 1 on 10/25/2021 by Jovon Maloney, DO at [facility] Left: Tibia Teresa [employer]omet [id number] / / Screw 3.5mm 50mm Ft Nonlock Hex Drv Elb Implanted:Qty: 2 on 10/25/2021 by Jovon Maloney DO at [facility] Left: Tibia Teresa [employer] [id number] / / Screw 3.5mm 55mm Ft Slf-Tap Hex Lopro Implanted:Qty: 1 on 10/25/2021 by Jovon Maloney DO at [facility] Left: Tibia Teresa [employer] 8150-37-055 / / Screw 3.5mm 65mm T15 Lck Slf-Tap Tip Tpr Implanted:Qty: 3 on 10/25/2021 by Jovon Maloney DO at [facility] Left: Tibia Teresa [employer] [id number] / / Screw 3.5mm 70mm T15 Lck Slf-Tap Tip Tpr Implanted:Qty: 2 on 10/25/2021 by Jovon Maloney, DO at [facility] Left: Tibia Teresa [employer]omet [id number] / / Plate 5 Hl Lck Lopro Dist Blt Tip Tib Lt Implanted:Qty: 1 on 10/25/2021 by Jovon Maloney, DO at [facility] Left: Tibia Teresa [employer] [id number] / / Screw 3.5mm 65mm 2.2mm Mldir Lck Sq Drv Implanted:Qty: 1 on 10/25/2021 by Jovon Maloney, at [facility] Left: Tibia Teresa [employer] [id number] / / Screw 3.5mm 80mm Sq Drv Nonlock Lopro Implanted:Qty: 1 on 10/25/2021 by Jovon Maloney, DO at [facility] Left: Tibia Teresa [employer] [id number] / / Screw 3.5mm 75mm T15 Lck Slf-Tap Tip Tpr Implanted:Qty: 1 on 10/25/2021 by Jovon Maloney, at [facility] Left: Tibia Teresa [employer] [id number] / / Plate 5 Hl Lopro Lck Ulna Olcrn Dist 61 Implanted:Qty: 1 on 10/25/2021 by Jovon Maloney DO at [facility] Left: Tibia Teresa [employer]omet [id number] / / Screw 3.5mm 34mm Ft Nonlock Hex Drv Elb Implanted:Qty: 1 on 10/25/2021 by Jovon Maloney DO at [facility] Left: Tibia Teresa [employer] 8150-37-034 / / Screw 3.5mm 38mm Ft Slf-Tap Hex Lopro Implanted:Qty: 1 on 10/25/2021 by Jovon Maloney DO at [facility] Left: Tibia Teresa [employer] [id number] / / Screw 3.5mm 40mm Ft Slf-Tap Hex Lopro Implanted:Qty: 1 on 10/25/2021 by Jovon Maloney DO at [facility] Left: Tibia Teresa [employer]omet [id number] / / Explanted Type Area Licensed Massage Practitioner Device Identifier Shelf Expiration Date Model / Serial / Lot Clamp Extfix Jtx 10.5mm Bar To Bar Mr Buitrago Explanted:Qty: 2 on 10/11/2021 at [facility] Left: Tibia [employer] Nephew Trauma [id number] / / Screw 3.5mm 55mm Ft Slf-Tap Hex Lopro Explanted:Qty: 1 on 10/25/2021 by Jovon Maloney DO at [facility] Left: Tibia Teresa [employer]omet 8150-37-055 / / Wire K 1.6mm 6in Hlf [facility] Ss Fx Explanted:Qty: 4 on 10/25/2021 by Jovon Maloney DO at [facility] Left: Tibia Teresa [employer]omet [id number] / / Screw 3.5mm 36mm Ft Slf-Tap Hex Lopro Explanted:Qty: 1 on 10/25/2021 by Jovon Maloney DO at [facility] Left: Tibia Teresa [employer]omet [id number] / / Procedures Procedure Name Priority Date/Time Associated Diagnosis Comments BASIC METABOLIC PANEL (CALCIUM TOTAL) Routine 10/26/2021 2:31 AM VERTICAL BORER Closed fracture of left tibial plateau, initial encounter from Last 3 Months or Most Recently Relevant to Health Maintenance Results * (ABNORMAL) BASIC METABOLIC PANEL (CALCIUM TOTAL) (10/26/2021 2:31 AM VERTICAL BORER) BUN 14 7 - 26 mg/dL 10/26/2021 3:29 AM [facility] Creatinine 0.95 0.56 - 0.96 mg/dL 10/26/2021 3:29 AM [facility] Sodium 134(L) 136 - 145 mmol/L 10/26/2021 3:29 AM [facility] Potassium 4.2 3.5 - 4.5 mmol/L 10/26/2021 3:29 AM [facility] Chloride 102 98 - 107 mmol/L 10/26/2021 3:29 AM [facility] CO2 25 22 - 29 mmol/L 10/26/2021 3:29 AM [facility] Glucose 106 70 - 115 mg/dL 10/26/2021 3:29 AM [facility] Calcium 8.9 8.4 - 10.2 mg/dL 10/26/2021 3:29 AM [facility] Anion Gap 11 8 - 18 10/26/2021 3:29 AM [facility] BUN/Creatinine Ratio 15 7 - 23 10/26/2021 3:29 AM [facility] Osmolality Calculated 279 270 - 300 mOsm/kg 10/26/2021 3:29 AM [facility] eGFR by CKD-EPI 63(L) >=90 mL/min/1.7 3 m2 10/26/2021 3:29 AM [facility] Blood BLOOD SPECIMEN / Unknown Lab Venipuncture / Unknown 10/26/2021 2:31 AM VERTICAL BORER 10/26/2021 3:01 AM [facility] Jovon Maloney DO LAB - CHEMISTRY [facility] [address] [place] [address], [facility] [phone] from Last 3 Months or Most Recently Relevant to Health Maintenance Advance Directives * Full Code (Latest Code Status on File) Date Activated Date Inactivated Comments 10/25/2021 1:30 PM 10/26/2021 1:32 PM * Full Code Date Activated Date Inactivated Comments 10/11/2021 12:36 PM 10/15/2021 3:44 PM Care Teams Support Specialist Relationship Specialty Start Date End Date Edy Aviles DO [address] [place] [address] PCP - General 06/17/22
--- OUTSIDE RECORDS SUMMARY | 2024-12-09 12:15 | XMS_ITS | Clinical Summary ---
Author Organization [facility] [address] Address [address] [place] [address] Care Team Providers Care Cafeteria Aide Name Role Phone Per Samson MD Primary Care Provider [phone] Coretta Childers MD Unavailable [phone] Tima Henson MD Unavailable [phone] Allergies Active Allergy Reactions Criticality Noted Date [...] mouth 2 (two) times a day Active twfmhkgu-pol-MW-ly copen-lutein 0.4-300-250 mg-mcg-mcg tabletIndications: Vitamin Deficiency Prevention [...] 08/28/2023 Assessment & Plan (09/21/2023 9:12 AM SAUSAGE INSPECTOR): She is doing pretty well. Feels like [...] and proceed with this. Sinus node dysfunction ([facility]) 06/08/2023 Morbid (severe) obesity due to excess calories 0 06/01/2023 Body mass index 40.0-44.9, adult ([facility]) 06/01 Sleep-disordered breathing 09/07/2022 Status post placement of implantable loop record er 03/07/2022 Overview (03/07/2022): TellmeGen Bio-monitor III Loop Recorder. Dx; Syncope, PSVT, AT, RVOT VT s/p ablation. DOI 03/05/2022-[facility]. Newtronronik remote monitoring. Dizziness 08/19/2021 Lower extremity edema [...] (10/26/2020): Added automatically from request for surgery [id number] Migraine 08/10/2020 Assessment & Plan (08/10/2020 2:22 [...] neuralgia. 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 Assessment & Plan (10/02/2020 1:29 PM SAUSAGE INSPECTOR): Ms. Palma continues to do well clinically after posterior lumbar decompression fusion at L4-5. She has good alignment. There is no lucency around the hardware. We will continue to follow this over time. Assessment & Plan (11/30/2019 1:51 PM SAUSAGE INSPECTOR): Ms. Palma reports persistent numbness in her [...] (05/20/2019): Added automatically from request for surgery [id number] Assessment & Plan (01/22/2023 12:27 PM CDT): [...] physician. Assessment & Plan (01/08/2021 12:53 PM SAUSAGE INSPECTOR): Ms. Palma does not have pain referable [...] time. Assessment & Plan (10/02/2020 1:29 PM SAUSAGE INSPECTOR): Ms. Palma was improved after cervical decompression [...] hour to stretch. FOLLOW UP APPT: With FILLING OPERATOR in 4 weeks with AP/LAT Cervical spine films. Assessment & Plan (11/24/2018 11:40 AM SAUSAGE INSPECTOR): Patient has new onset symptoms of her [...] patient to schedule on her own at [facility]. We will await the CD to be mailed to our office for Dr. Palmer to review and provide further recommendations. She is to continue the same activity restrictions as outlined prior to surgery. Neuropathic pain 11/24/2018 Assessment & Plan (11/24/2018 11:42 AM SAUSAGE INSPECTOR): For her neuropathic pain and would have [...] (12/16/2018): Added automatically from request for surgery [id number] Cervical spinal stenosis 09/27/2018 Overview (09/27/2018): Added automatically from request for surgery [id number] HNP (herniated nucleus pulposus), lumbar 07/13/2018 03/02/2019 Overview (07/13/2018): Added automatically from request for surgery [id number] Encounters Date Type Department Care Team Description 11/25/2024 Telephone [facility] [address] [place] [phone] Jessica Shoemaker NP 11/18/2024 Orders Only [facility] [address] [place] [phone] Vy Pierce MD Status post placement of implantable loop recorder (Primary Dx); Paroxysmal supraventricular tachycardia (HCC); History of radiofrequency ablation (RFA) procedure for cardiac arrhythmia; Syncope and collapse; RVOT ventricular tachycardia (HCC) 11/14/2024 9:15 AM SAUSAGE INSPECTOR Ancillary Procedure [facility] [address] [place] [address] [place] [phone] Status post placement of implantable loop recorder (Primary Dx); NICM (nonischemic cardiomyopathy) (CMS/HCC) (HCC); NSVT (nonsustained ventricular tachycardia) (HCC) 10/28/2024 Telephone [facility] [address] [place] [phone] Jessica Shoemaker NP 10/27/2024 1:00 PM SAUSAGE INSPECTOR Ancillary Procedure [facility] [address] [facility] [address] [place] [phone] Syncope and collapse (Primary Dx); NICM (nonischemic cardiomyopathy) (CMS/HCC) (HCC); NSVT (nonsustained ventricular tachycardia) (HCC); Status post placement of implantable loop recorder; RVOT ventricular tachycardia (HCC); Paroxysmal supraventricular tachycardia (HCC) 10/27/2024 Orders Only [facility] [address] [place] [address] [place] [phone] Jessica Shoemaker NP Dizziness of unknown etiology 10/26/2024 Telephone [place] [address] [place] [phone] Vy Pierce MD 10/19/2024 Orders Only [facility] [address] [place] [phone] Jessica Shoemaker NP 10/10/2024 Telephone [place] [address] [place] [phone] Jessica Shoemaker NP Dizziness 09/26/2024 8:30 AM SAUSAGE INSPECTOR Office Visit [facility] [address] [place] [address] [place] [phone] Jessica Shoemaker NP Syncope and collapse (Primary Dx); Status post placement of implantable loop recorder; Lower extremity edema; cardiomyopathy; RVOT ventricular tachycardia (HCC); History of radiofrequency ablation (RFA) procedure for cardiac arrhythmia 09/26/2024 8:15 AM SAUSAGE INSPECTOR Ancillary Procedure [facility] [address] [facility] [address] [place] [phone] Paroxysmal supraventricular tachycardia (HCC) (Primary Dx); NICM (nonischemic cardiomyopathy) (CMS/HCC) (HCC); NSVT (nonsustained ventricular tachycardia) (HCC); Status post placement of implantable loop recorder; RVOT ventricular tachycardia (HCC); Syncope and collapse 09/26/2024 Orders Only [facility] [address] [facility] [address] [place] [phone] Vy [...] on file Legal Sex Female 11:06 AM SAUSAGE INSPECTOR Gender Identity Not on file Sexual Orientation Not on file Obstetrics History Last Filed Vital Signs Vital Sign Reading Time Taken Comments Blood Pressure 112/64 09/26/2024 8:40 AM SAUSAGE INSPECTOR Pulse 105 09/26/2024 8:40 AM SAUSAGE INSPECTOR Temperature 36.4 ??C (97.5 ??F) 09/07/2023 10:05 AM C DT Respiratory Rate 18 09/15/2023 9:25 AM SAUSAGE INSPECTOR Oxygen Saturation 97% 09/26/2024 8:40 AM SAUSAGE INSPECTOR Inhaled Oxygen Concentration - - Weight 77.1 kg (170 lb) 09/26/2024 8:40 AM SAUSAGE INSPECTOR Height 154.9 cm (5' 1 ) 09/26/2024 8:40 AM SAUSAGE INSPECTOR Body Mass Index 32.12 09/26/2024 8:40 AM SAUSAGE INSPECTOR Plan of Treatment Health Maintenance Due Date [...] Completed 01/24/2022 Medical Devices Implanted Type Area Transport Tech Device Identifier Shelf Expiration Date Model / Serial / Lot Loop Recorder NewtronroniAqua [employer] Biomonitor Iii-Left Upper Chest Chest Knee Arthroplasty Right: Knee Left Lower Leg Hardware From Fracture Left: Leg Orthocon Inc Os-201 Hemasorb Spatula Wax 2gm Bone Sterile - [id number] Implanted:Qty: 1 on 10/15/2018 by Elvin Palmer MD at [facility] N/A: Spine Cervical Orth[employer] Inc 10/08/2020 OS-201 / / [id number] [employer] 3d Cervical 14.4t66c7mc 7 Deg - [id number] Implanted:Qty: 1 on 10/15/2018 by Elvin Palmer MD at [facility] N/A: Spine Cervical Core Link [id number] 12/02/2022 [id number] / / [id number] Core Link Anodyne 12mm Level 1 Spine Cervical Anterior Plate Bone - [id number] Implanted:Qty: 1 on 10/15/2018 by Elvin Palmer MD at [facility] N/A: Spine Cervical Core Link / / Core Link Anodyne 4mm 14mm Variable Angle Self Tap Spine Cervical Screw - [id number] Implanted:Qty: 4 on 10/15/2018 by Elvin Palmer MD at [facility] N/A: Spine Cervical Core Link / / Screw Bone Biased Angle L14 Mm Od3.5 Mm Cephelad Caudal Nonsterile Posterior Occipital Cervical Thoracic System 3500 Series - [id number] Implanted:Qty: 4 on 01/20/2019 by Elvin Palmer MD at [facility] N/A: Spine Cervical Core Link 71786-23 / / Screw Set Spinal 3500 Series - [id number] Implanted:Qty: 4 on 01/20/2019 by Elvin Palmer MD at [facility] N/A: Spine Cervical Core Link 45585-54 / / Core Link [id number] Kerkhoven 3.5mm 50mm Line Prebent Jin Spinal Nonsterile 3500 Series - [id number] Implanted:Qty: 1 on 01/20/2019 by Elvin Palmer MD at [facility] N/A: Spine Cervical Core Link [id number] / / Core Link [id number] Kerkhoven Screw Set 5500 Series - Sna - [id number] Implanted:Qty: 4 on 06/20/2019 by Elvin Palmer MD at [facility] N/A: Back Core Link 92870-11 / NA / Core Link [id number] Kerkhoven 5.5mm 35mm Line Prebent Jin Spinal Nonsterile 5500 Series - Sns - [id number] Implanted:Qty: 2 on 06/20/2019 by Elvin Palmer MD at [facility] N/A: Back Core Link [id number] / NS / IsSn[employer]c [id number] Inqu Paste Mix Plus Steam Pressure Chamber Operator 10cc Bone Graft Hyaluronic Acid Poly - Sna - [id number] Implanted:Qty: 1 on 06/20/2019 by Elvin Palmer MD at [facility] N/A: Back Isto [employer] I[employer]c [id number] 01/19/2021 [id number] / NA / [id number] Core Link 22212-87 Kerkhoven 6.5mm 40mm Spine Pedicle Screw Bone 5500 Series - Sna - [id number] Implanted:Qty: 4 on 06/20/2019 by Elvin Palmer MD at [facility] N/A: Back Core Link 86712-00 / NA / Dinner [employer] Inc 700-025 I Factor Allograft Putty Syringe Graft 2.5cc Bone - [id number] Implanted:Qty: 1 on 11/26/2020 by Elvin Palmer MD at [facility] N/A: Spine Cervical [employer]aped[employer] Inc 09/08/2023 700-025 / / [id number] Cage [facility] 3d Cervical 14.2h37q6gq 7 Deg - [id number] Implanted:Qty: 1 on 11/26/2020 by Elvin Palmer MD at [facility] N/A: Spine Cervical Core Link 10/25/2024 [id number] 708 / / [id number] Core Link Anodyne 12mm Level 1 Spine Cervical Anterior Plate Bone - [id number] Implanted:Qty: 1 on 11/26/2020 by Elvin Palmer MD at [facility] N/A: Spine Cervical Core Link / / Core Link Anodyne 4mm 14mm Variable Angle Self Tap Spine Cervical Screw - [id number] Implanted:Qty: 4 on 11/26/2020 by Elvin Palmer MD at [facility] N/A: Spine Cervical Core Link / / Procedures Procedure Name Priority Date/Time Associated Diagnosis Comments DEVICE CHECK - REMOTE Routine 11/18/2024 12:03 PM SAUSAGE INSPECTOR NICM (nonischemic cardiomyopathy) (CMS/HCC) (HCC) NSVT (nonsustained ventricular tachycardia) (HCC) DEVICE CHECK - REMOTE Routine 10/27/2024 6:13 PM SAUSAGE INSPECTOR NICM (nonischemic cardiomyopathy) (CMS/HCC) (HCC) NSVT (nonsustained ventricular tachycardia) (HCC) SCAN - RADIOLOGY/IMAGING 10/19/2024 DEVICE CHECK - REMOTE Routine 09/26/2024 9:32 AM SAUSAGE INSPECTOR NICM (nonischemic cardiomyopathy) (CMS/HCC) (HCC) NSVT (nonsustained ventricular tachycardia) (HCC) HEPATITIS C ANTIBODY STAT 10/15/2018 11:20 AM SAUSAGE INSPECTOR from Last 3 Months or Most Recently Relevant to Health Maintenance Results * DEVICE CHECK - REMOTE (11/18/2024 12:03 PM SAUSAGE INSPECTOR) Anatomical Region Laterality Modality Other Narrative 12/08/2024 3:50 PM SAUSAGE INSPECTOR Biotronik lllm implanted on March 05, 2022 [...] to monitor remotely. ?? Bandar Jordan Device Brake Operator us [facility] Chelly Pierce MD CV CARDIAC SERVICES PRO CEDURES Final Result * DEVICE CHECK - REMOTE (10/27/2024 6:13 PM SAUSAGE INSPECTOR) Anatomical Region Laterality Modality Other Narrative 10/28/2024 8:21 AM SAUSAGE INSPECTOR TellmeGen Bio-monitor III Loop Recorder. Dx; Syncope, PSVT, AT, RVOT VT s/p ablation. DOI 03/05/2022-[facility]. Newtronronik remote monitoring. Unscheduled ILR remote due to [...] Anatomical Region Laterality Modality Other Jessica Shoemaker FILLING OPERATOR Final Res ult * DEVICE CHECK - REMOTE (09/26/2024 9:32 AM SAUSAGE INSPECTOR) Anatomical Region Laterality Modality Other Narrative 10/28/2024 9:20 AM SAUSAGE INSPECTOR TellmeGen Bio-monitor III Loop Recorder. Dx; Syncope, PSVT, AT, RVOT VT s/p ablation. DOI 03/05/2022-[facility]. Newtronronik remote monitoring. Routine ILR remote. Normal device [...] * Hepatitis C antibody (10/15/2018 11:20 AM SAUSAGE INSPECTOR) Hep C Ab Non-Reactiv e Non-Reactiv e [facility] Blood specimen (specimen) 10/15/2018 11:20 AM SAUSAGE INSPECTOR 10/15/2018 11:41 AM SAUSAGE INSPECTOR Narrative [facility] - 10/15/2018 12:25 PM SAUSAGE INSPECTOR us Notinfile Unknown LAB MICROBIOLOGY - GENERAL ORD ERABLES Final Result [facility] [employer] [employer] Tamar [place]oy [place] [address] from Last 3 Months or Most Recently Relevant to Health Maintenance Insurance MEDICARE [facility] MEDICARE AETNA MEDICARE AETNA SENIOR SUPPLEMENT Advance Directives For more information, please contact: [phone] * Full Code (Latest Code Status on File) Date Activated Date Inactivated Comments 09/07/2023 10:10 AM 09/07/2023 2:44 PM * Full Code Date Activated Date Inactivated Comments 06/20/2019 12:01 PM 06/20/2019 6:34 PM * Full Code Date Activated Date Inactivated Comments 10/15/2018 2:08 PM 10/15/2018 4:39 PM * Full Code Date Activated Date Inactivated Comments 07/16/2018 2:30 PM 07/16/2018 6:36 PM Care Teams Cafeteria Aide Relationship Specialty Start Date End Date Per Samson MD PCP - General Family Practice 06/01/23 Coretta Childers MD Consulting Physician Cardiology 08/28/23 Tima Henson MD [address] [place] [address] [place] [address] Consulting Physician Otolaryngology 08/28/23
--- OUTSIDE RECORDS SUMMARY | 2024-12-09 12:15 | XMS_ITS | Clinical Summary ---
Author Organization [facility] Address [facility] [place], [place] [address] [place] [address] Care Team Providers Care Product Development Consultant Name Role Phone Zafar Reddy MD Primary Care Provider [phone] Allergies Active Allergy Reactions Criticality Noted Date [...] (11/12/2022): Added automatically from request for surgery [id number] Social History Tobacco Use Types Packs/Day Years [...] this topic Insurance MEDICARE AET Care Teams Product Development Consultant Relationship Specialty Start Date End Date Zafar Reddy MD [address] [place] [id number] PCP - General 05/10/12
--- OUTSIDE RECORDS SUMMARY | 2024-12-09 12:15 | XMS_ITS | Encounter Summary ---
Author Organization [facility] Address [address] [place] [address] Care Team Providers Care Business Services Coordinator Name Role Phone Edy Aviles DO Primary Care Provider [phone] Encounter Details Date Type Department Care Team (Late st Contact Info) Description 12/19/2020 Lab Requisition [facility] DermPath Lab [address] [facility] [place] [id number] Israel Lang MD [address] [place] [address] Social History Tobacco Use Types [...] Comments DERMATOPATHOLOGY Routine 12/18/2020 12:0 0 AM NAVAL DESIGNER documented in this encounter Results * DERMATOPATHOLOGY (12/18/2020 12:00 AM NAVAL DESIGNER) Case Report Dermatopathology Report ? Case: [id number] ? Authorizing Provider: ??Israel Lang MD ?Collected: ? 12/18/2020 12:00 AM ? Ordering Location: ? [facility] DermPath Lab ?Received: ?12/19/2020 11:37 AM ? Pathologist: ? Nata Olmos MD ? Specimen: ?Skin, left ear superior rim ? 1 4:54 PM [facility] DER[facility] Final Diagnosis Specimen A. 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 4:54 PM [facility] Gross Description Specimen A: Received is one formalin filled container labeled with the patient's name and designated left ear superior rim. The specimen consists of a shave biopsy (4 pieces) measuring 0z3l1sm, 5m7c4mk, 6v5s4hg, & 4d0y0sj. Jar 0. 4:54 PM [facility] Microscopic Description Specimen A. SKIN, left ear superior rim: There is epidermal hyperplasia overlying dilated blood vessels and fibroplasia. 4:54 PM [facility] Disclaimer An external and internal positive and negative controls are appropriate for the histochemical, immunohistochemical and immunofluorescence stain(s) in this case (if any), except where stated explicitly. The performance characteristics of the stain(s) cited in this report were developed and its performance characteristic determined by the Dermatopathology Laboratory at [facility], directed by Dr. Yessi Jackman. These tests need not be, and therefore are not, approved by the [place] Food and Drug Administration. The tests are used for clinical purposes. Billing Codes Specimen Charges Stain Charges 79817 1 1 4:54 PM [facility] DERMATOPATHOLOGY LABORATORY Embedded Images 1 4:54 PM [facility] DERMATOPATHOLOGY LABORATORY Pathology/Cytolog y TISSUE SPECIMEN FROM SKIN / Unknown 12/18/2020 12/19/2020 11:37 AM NAVAL DESIGNER Israel Lang MD LAB - PATHOLOGY/CYTO LOGY ORDERABLES DERMATOPATHOLOGY LABORATORY [facility] - Department of Dermatology [facility] Medicine [address] [place] [address], [address] [phone] documented in this encounter Visit Diagnoses Not on filedocumented in this encounter Care Teams Business Services Coordinator Relationship Specialty Start Date End Date Edy Aviles DO [address] [place] [address] PCP - General 06/17/22 documented as of this encounter
--- OUTSIDE RECORDS SUMMARY | 2024-12-09 12:15 | XMS_ITS | Referral Summary ---
Author Organization [facility] Address [address] [place] [address] Care Team Providers Care Media Professional Name Role Phone Edy Aviles DO Primary Care Provider [phone] Source Comments [facility],non-owned Affiliates and Associated Physician Practices is amultiple site organization consisting of ambulatory clinics and hospital sitesin [place], [place], [place] and [place]. This disclosure is being madepursuant to the Care Everywhere program and may not contain all information available regarding this patient. Last updated 18.[facility] Allergies Active Allergy Reactions [...] Immunizations Name Administration Dates Next Due Ian StyleTread primary monoval ent 12+ yr 0.3mL Purple [...] Comments Blood Pressure 148/57 10/26/2021 7:27 AM INTERNAL CORROSION SPECIALIST Pulse 95 10/26/2021 7:27 AM INTERNAL CORROSION SPECIALIST Temperature 36.8 ??C (98.3 ??F) 10/26/2021 7:27 AM CS T Respiratory Rate 16 10/25/2021 10:58 PM INTERNAL CORROSION SPECIALIST Oxygen Saturation 100% 10/26/2021 7:27 AM INTERNAL CORROSION SPECIALIST Inhaled Oxygen Concentration 40% 10/25/2021 1 2:10 PM INTERNAL CORROSION SPECIALIST Weight 85.7 kg (189 lb) 07/08/2022 9:04 [...] 3-4 weeks. Medical Devices Implanted Type Area [employer] Crewmember Device Identifier Shelf Expiration Date Model / Serial / Lot Pin Hlf 255mm 5mm Jtx Lng Ss 35mm Extfix Implanted:Qty: 2 on 10/11/2021 by Jovon Maloney, DO at [facility] Left: [employer] [id number] / / Pin Hlf 40mm 5mm Jtx Lng Ti Ntrd Extfix Implanted:Qty: 2 on 10/11/2021 by Jovon Maloney, DO at [facility] Left: [employer] [id number] / / Bar Extfix 200mm Jtx Cfbr Nonster Disp Implanted:Qty: 2 on 10/11/2021 by Jovon Maloney, DO at [facility] Left: [employer] [id number] / / Screw 3.5mm 46mm Ft Hex Drv Nlckg Fly Implanted:Qty: 1 on 10/25/2021 by Jovon Maloney, DO at [facility] Left: [employer] 8150-37-046 / / Screw 3.5mm 50mm Ft Nonlock Hex Drv Elb Implanted:Qty: 2 on 10/25/2021 by Jovon Maloney, DO at [facility] Left: [employer] 8150-37-050 / / Screw 3.5mm 55mm Ft Slf-Tap Hex Lopro Implanted:Qty: 1 on 10/25/2021 by Jovon Maloney, DO at [facility] Left: [employer] 8150-37-055 / / Screw 3.5mm 65mm T15 Lck Slf-Tap Tip Tpr Implanted:Qty: 3 on 10/25/2021 by Jovon Maloney, DO at [facility] Left: [employer] 8161-35-065 / / Screw 3.5mm 70mm T15 Lck Slf-Tap Tip Tpr Implanted:Qty: 2 on 10/25/2021 by Jovon Maloney, DO at [facility] Left: [employer] [id number] / / Plate 5 Hl Lck Lopro Dist Blt Tip Tib Lt Implanted:Qty: 1 on 10/25/2021 by Jovon Maloney, DO at [facility] Left: [employer] 8162-35-705 / / Screw 3.5mm 65mm 2.2mm Mldir Lck Sq Drv Implanted:Qty: 1 on 10/25/2021 by Jovon Maloney, DO at [facility] Left: [employer] [id number] / / Screw 3.5mm 80mm Sq Drv Nonlock Lopro Implanted:Qty: 1 on 10/25/2021 by Jovon Maloney, DO at [facility] Left: [employer] 1312-18-080 / / Screw 3.5mm 75mm T15 Lck Slf-Tap Tip Tpr Implanted:Qty: 1 on 10/25/2021 by Jovon Maloney DO at [facility] Left: [employer] 8161-35-075 / / Plate 5 Hl Lopro Lck Cha Marquez Dist 61 Implanted:Qty: 1 on 10/25/2021 by Jovon Maloney DO at [facility] Left: [employer] [id number] / / Screw 3.5mm 34mm Ft Nonlock Hex Drv Elb Implanted:Qty: 1 on 10/25/2021 by Jovon Maloney DO at [facility] Left: [employer] [id number] / / Screw 3.5mm 38mm Ft Slf-Tap Hex Lopro Implanted:Qty: 1 on 10/25/2021 by Jovon Maloney DO at [facility] Left: [employer] [id number] / / Screw 3.5mm 40mm Ft Slf-Tap Hex Lopro Implanted:Qty: 1 on 10/25/2021 by Jovon Maloney DO at [facility] Left: [employer] [id number] / / Explanted Type Area Hawk Missile System Crewmember Device Identifier Shelf Expiration Date Model / Serial / Lot Clamp Extfix Jtx 10.5mm Bar To Bar Mr Sf Explanted:Qty: 2 on 10/11/2021 at [facility] Left: [employer] [id number] / / Screw 3.5mm 55mm Ft Slf-Tap Hex Lopro Explanted:Qty: 1 on 10/25/2021 by Jovon Maloney DO at [facility] Left: [employer] 8150-37-055 / / Wire K 1.6mm 6in Hlf Bynt Pnt Ss Fx Explanted:Qty: 4 on 10/25/2021 by Jovon Maloney DO at [facility] Left: [employer] [id number] / / Screw 3.5mm 36mm Ft Slf-Tap Hex Lopro Explanted:Qty: 1 on 10/25/2021 by Jovon Maloney DO at [facility] Left: [employer] [id number] / / Procedures Procedure Name Priority Date/Time Associated Diagnosis Comments BASIC METABOLIC PANEL (CALCIUM TOTAL) Routine 10/26/2021 2:31 AM INTERNAL CORROSION SPECIALIST Closed fracture of left tibial plateau, initial encounter from Last 3 Months or Most Recently Relevant to Health Maintenance Results * (ABNORMAL) BASIC METABOLIC PANEL (CALCIUM TOTAL) (10/26/2021 2:31 AM INTERNAL CORROSION SPECIALIST) BUN 14 7 - 26 mg/dL 10/26/2021 3:29 AM [facility] Creatinine 0.95 0.56 - 0.96 mg/dL 10/26/2021 3:29 AM [facility] Sodium 134(L) 136 - 145 mmol/L 10/26/2021 3:29 AM [facility] Potassium 4.2 3.5 - 4.5 mmol/L 10/26/2021 3:29 AM [facility] Chloride 102 98 - 107 mmol/L 10/26/2021 3:29 AM [facility] CO2 25 22 - 29 mmol/L [...] Lab Venipuncture / Unknown 10/26/2021 2:31 AM INTERNAL CORROSION SPECIALIST 10/26/2021 3:01 AM [facility] Jovon Maloney DO LAB - CHEMISTRY JOCELYNN GARCIA [facility] [address] [place] [address], [facility] [phone] from Last 3 Months or Most Recently Relevant to Health Maintenance Advance Directives * Full Code (Latest Code Status on File) Date Activated Date Inactivated Comments 10/25/2021 1:30 PM 10/26/2021 1:32 PM * Full Code Date Activated Date Inactivated Comments 10/11/2021 12:36 PM 10/15/2021 3:44 PM Care Teams Media Professional Relationship Specialty Start Date End Date Edy Aviles DO [address] [address] PCP - General 06/17/22
--- OUTSIDE RECORDS SUMMARY | 2024-12-09 12:15 | XMS_ITS | Encounter Summary ---
Author Organization [facility] Address [address] [facility] [place] [address] Care Team Providers Care Rubber Goods Repairer Name Role Phone Edy Aviles DO Primary Care Provider [phone] Encounter Details Date Type Department Care Team (Late st Contact Info) Description 02/24/2024 Lab Requisition [facility] - DermPath Lab [address] [facility] [facility] [place] [phone] Israel Lang [place] [address] Social History Tobacco Use Types Packs/Day Years [...] CDT) Case Report Dermatopathology Report ? Case: [id number] ? Authorizing Provider: ??Israel Lang MD ?Collected: [...] five pieces in aggregate shave biopsy measuring 21d93y7 mm. Jar 0. 1:41 PM T DERMATOPATHOLOGY [...] characteristic determined by the Dermatopathology Laboratory at [facility], directed by Dr. Yessi Jackman. These tests need not be, and therefore are not, approved by the [place] Food and Drug Administration. The tests are used for clinical purposes. Billing Codes Specimen Charges Stain Charges 89899 55095 [id number] 1 1 1 1:41 PM T DERMATOPATHOLOGY [...] - PATHOLOGY/CYTO LOGY ORDERABLES DERMATOPATHOLOGY LABORATORY [facility] - Department of Dermatology [facility] Medicine [address] [place] [address], [address] [phone] documented in this encounter Visit Diagnoses Not on filedocumented in this encounter Care Teams Rubber Goods Repairer Relationship Specialty Start Date End Date Edy Aviles DO [address] [place], [place] [id number] PCP - General 06/17/22 documented as of this encounter
--- OUTSIDE RECORDS SUMMARY | 2024-12-09 12:15 | XMS_ITS | Referral Summary ---
Author Organization [facility] [address] [facility] [address] Address [address] [place] [address] Care Team Providers Care Body Maker Name Role Phone Per Samson MD Primary Care Provider [phone] Coretta Childers MD Unavailable [phone] Tima Henson MD Unavailable [phone] Encounters Date Type Department Care Team Description 11/25/2024 Telephone [facility] [address] [place] [address] Jessica Shoemaker NP 11/18/2024 Orders Only [facility] Cardiology [address] [place] [phone] Vy Pierce MD Status post placement of implantable loop recorder (Primary Dx); Paroxysmal supraventricular tachycardia (HCC); History of radiofrequency ablation (RFA) procedure for cardiac arrhythmia; Syncope and collapse; RVOT ventricular tachycardia (HCC) 11/14/2024 9:15 AM DREDGE OPERATOR Ancillary Procedure [facility] [address] [place] [phone] Status post placement of implantable loop recorder (Primary Dx); NICM (nonischemic cardiomyopathy) (CMS/HCC) (HCC); NSVT (nonsustained ventricular tachycardia) (HCC) 10/28/2024 Telephone [facility] [address] [place] [phone] Jessica Shoemaker NP 10/27/2024 1:00 PM DREDGE OPERATOR Ancillary Procedure [facility] [address] [place] [address] [place] [phone] Syncope and collapse (Primary Dx); NICM (nonischemic cardiomyopathy) (CMS/HCC) (HCC); NSVT (nonsustained ventricular tachycardia) (HCC); Status post placement of implantable loop recorder; RVOT ventricular tachycardia (HCC); Paroxysmal supraventricular tachycardia (HCC) 10/27/2024 Orders Only [facility] [address] [place] [address] [address] [place] [phone] Jessica Shoemaker NP Dizziness of unknown etiology 10/26/2024 Telephone [facility] [address] [place] [address] [address] [place] [phone] Vy Pierce MD 10/19/2024 Orders Only [facility] Health Information Management [address] [place] [phone] Jessica Shoemaker NP 10/10/[address] [place] [phone] Jessica Shoemaker NP Dizziness 09/26/2024 Orders Only [facility] [address] [place] [address] [place] [phone] Vy Pierce MD NICM (nonischemic cardiomyopathy) (CMS/HCC) (HCC) (Primary Dx); NSVT (nonsustained ventricular tachycardia) (HCC) 09/26/2024 8:15 AM DREDGE OPERATOR Ancillary Procedure [facility] [address] [place] [address] [place] [phone] Paroxysmal supraventricular tachycardia (HCC) (Primary Dx); NICM (nonischemic cardiomyopathy) (CMS/HCC) (HCC); NSVT (nonsustained ventricular tachycardia) (HCC); Status post placement of implantable loop recorder; RVOT ventricular tachycardia (HCC); Syncope and collapse 09/26/2024 8:30 AM DREDGE OPERATOR Office Visit [facility] Cardiology [address] [place] [address] Jessica Shoemaker NP Syncope and [...] mouth 2 (two) times a day Active votdpwfc-nol-JR-ly copen-lutein 0.4-300-250 mg-mcg-mcg tabletIndications: Vitamin Deficiency Prevention [...] 08/28/2023 Assessment & Plan (09/21/2023 9:12 AM DREDGE OPERATOR): She is doing pretty well. Feels like [...] implantable loop record er 03/07/2022 Overview (03/07/2022): [employer] Bio-monitor III Loop Recorder. Dx; Syncope, PSVT, AT, RVOT VT s/p ablation. DOI 03/05/2022-[facility]. [employer] remote monitoring. Dizziness 08/19/2021 Lower [...] (10/26/2020): Added automatically from request for surgery [id number] Migraine 08/10/2020 Assessment & Plan (08/10/2020 2:22 [...] neuralgia. Assessment & Plan (11/30/2019 1:53 PM DREDGE OPERATOR): Ms. Palma has occipital neuralgia with reproduction [...] less. Assessment & Plan (10/02/2020 1:29 PM DREDGE OPERATOR): Ms. Palma continues to do well clinically after posterior lumbar decompression fusion at L4-5. She has good alignment. There is no lucency around the hardware. We will continue to follow this over time. Assessment & Plan (11/30/2019 1:51 PM DREDGE OPERATOR): Ms. Palma reports persistent numbness in her [...] (05/20/2019): Added automatically from request for surgery [id number] Assessment & Plan (01/22/2023 12:27 PM CDT): [...] physician. Assessment & Plan (01/08/2021 12:53 PM DREDGE OPERATOR): Ms. Palma does not have pain referable [...] time. Assessment & Plan (10/02/2020 1:29 PM DREDGE OPERATOR): Ms. Palma was improved after cervical decompression [...] hour to stretch. FOLLOW UP APPT: With ASSOCIATE PROFESSOR OF ENGINEERING in 4 weeks with AP/LAT Cervical spine films. Assessment & Plan (11/24/2018 11:40 AM DREDGE OPERATOR): Patient has new onset symptoms of her [...] patient to schedule on her own at [facility]. We will await the CD to be mailed to our office for Dr. Palmer to review and provide further recommendations. She is to continue the same activity restrictions as outlined prior to surgery. Neuropathic pain 11/24/2018 Assessment & Plan (11/24/2018 11:42 AM DREDGE OPERATOR): For her neuropathic pain and would have [...] (12/16/2018): Added automatically from request for surgery [id number] Cervical spinal stenosis 09/27/2018 Overview (09/27/2018): Added automatically from request for surgery [id number] HNP (herniated nucleus pulposus), lumbar 07/13/2018 03/02/2019 Overview (07/13/2018): Added automatically from request for surgery [id number] Immunizations Name Administration Dates Next Due Pfizer [...] on file Legal Sex Female 11:06 AM DREDGE OPERATOR Gender Identity Not on file Sexual Orientation Not on file Last Filed Vital Signs Vital Sign Reading Time Taken Comments Blood Pressure 112/64 09/26/2024 8:40 AM DREDGE OPERATOR Pulse 105 09/26/2024 8:40 AM DREDGE OPERATOR Temperature 36.4 ??C (97.5 ??F) 09/07/2023 10:05 AM C DT Respiratory Rate 18 09/15/2023 9:25 AM DREDGE OPERATOR Oxygen Saturation 97% 09/26/2024 8:40 AM DREDGE OPERATOR Inhaled Oxygen Concentration - - Weight 77.1 kg (170 lb) 09/26/2024 8:40 AM DREDGE OPERATOR Height 154.9 cm (5' 1 ) 09/26/2024 8:40 AM DREDGE OPERATOR Body Mass Index 32.12 09/26/2024 8:40 AM DREDGE OPERATOR Plan of Treatment Not on file Medical Devices Implanted Type Area Lower [employer] Music Teacher Device Identifier Shelf Expiration Date Model / Serial / Lot Loop Recorder [employer] Biomonitor Iii-Left Upper Chest Chest Knee Arthroplasty Right: Knee Left Lower Leg Hardware From Fracture Left: Leg [employer] Os-201 Hemasorb Spatula Wax 2gm Bone Sterile - [id number] Implanted:Qty: 1 on 10/15/2018 by Elvin Palmer MD at [facility] N/A: Spine Cervical [employer] 10/08/2020 OS-201 / / [id number] [employer] 3d Cervical 14.8l51m0xm 7 Deg - [id number] Implanted:Qty: 1 on 10/15/2018 by Elvin Palmer MD at [facility] N/A: Spine Cervical Core Link [id number] 12/02/2022 [id number] / / [id number] Core Link Anodyne 12mm Level 1 Spine Cervical Anterior Plate Bone - [id number] Implanted:Qty: 1 on 10/15/2018 by Elvin Palmer MD at [facility] N/A: Spine Cervical Core Link / / Core Link Anodyne 4mm 14mm Variable Angle Self Tap Spine Cervical Screw - [id number] Implanted:Qty: 4 on 10/15/2018 by Elvin Palmer MD at [facility] N/A: Spine Cervical Core Link [id number] / / Screw Bone Biased Angle L14 Mm Od3.5 Mm Cephelad Caudal Nonsterile Posterior Occipital Cervical Thoracic System 3500 Series - [id number] Implanted:Qty: 4 on 01/20/2019 by Elvin Palmer MD at [facility] N/A: Spine Cervical Core Link 13658-64 / / Screw Set Spinal 3500 Series - [id number] Implanted:Qty: 4 on 01/20/2019 by Elvin Palmer MD at [facility] N/A: Spine Cervical Core Link [id number] / / Core Link [id number] [place] 3.5mm 50mm Line Prebent Jin Spinal Nonsterile 3500 Series - [id number] Implanted:Qty: 1 on 01/20/2019 by Elvin Palmer MD at [facility] N/A: Spine Cervical Core Link [id number] / / Core Link 20150-67 [place] Screw Set 5500 Series - Sna - [id number] Implanted:Qty: 4 on 06/20/2019 by Elvin Palmer MD at [facility] N/A: Back Core Link 09208-53 / NA / Core Link [id number] [place] 5.5mm 35mm Line Prebent Jin Spinal Nonsterile 5500 Series - Sns - [id number] Implanted:Qty: 2 on 06/20/2019 by Elvin Palmer MD at [facility] N/A: Back Core Link [id number] / NS / [employer] [id number] Inqu Paste Mix Plus Medical Collections Specialist 10cc Bone Graft Hyaluronic Acid Poly - Sna - [id number] Implanted:Qty: 1 on 06/20/2019 by Elvin Palmer MD at [facility] N/A: Back [employer] [id number] 01/19/2021 [id number] / NA / [id number] Core Link [id number] [place] 6.5mm 40mm Spine Pedicle Screw Bone 5500 Series - Sna - [id number] Implanted:Qty: 4 on 06/20/2019 by Elvin Palmer MD at [facility] N/A: Back Core Link [id number] / NA / [employer] 700-025 I Factor Allograft Putty Syringe Graft 2.5cc Bone - [id number] Implanted:Qty: 1 on 11/26/2020 by Elvin Palmer MD at [facility] N/A: Spine Cervical [employer] 09/08/2023 700-025 / / [id number] [employer] 3d Cervical 14.9x51p4wy 7 Deg - [id number] Implanted:Qty: 1 on 11/26/2020 by Elvin Palmer MD at [facility] N/A: Spine Cervical Core Link 10/25/2024 [id number] / / [id number] Core Link Anodyne 12mm Level 1 Spine Cervical Anterior Plate Bone - [id number] Implanted:Qty: 1 on 11/26/2020 by Elvin Palmer MD at [facility] N/A: Spine Cervical Core Link / / Core Link Anodyne 4mm 14mm Variable Angle Self Tap Spine Cervical Screw - [id number] Implanted:Qty: 4 on 11/26/2020 by Elvin Palmer MD at [facility] N/A: Spine Cervical Core Link / / Procedures Procedure Name Priority Date/Time Associated Diagnosis Comments DEVICE CHECK - REMOTE Routine 11/18/2024 12:03 PM DREDGE OPERATOR NICM (nonischemic cardiomyopathy) (CMS/HCC) (HCC) NSVT (nonsustained ventricular tachycardia) (HCC) DEVICE CHECK - REMOTE Routine 10/27/2024 6:13 PM DREDGE OPERATOR NICM (nonischemic cardiomyopathy) (CMS/HCC) (HCC) NSVT (nonsustained ventricular tachycardia) (HCC) SCAN - RADIOLOGY/IMAGING 10/19/2024 DEVICE CHECK - REMOTE Routine 09/26/2024 9:32 AM DREDGE OPERATOR NICM (nonischemic cardiomyopathy) (CMS/HCC) (HCC) NSVT (nonsustained ventricular tachycardia) (HCC) HEPATITIS C ANTIBODY STAT 10/15/2018 11:20 AM DREDGE OPERATOR from Last 3 Months or Most Recently Relevant to Health Maintenance Results * DEVICE CHECK - REMOTE (11/18/2024 12:03 PM DREDGE OPERATOR) Anatomical Region Laterality Modality Other Narrative 12/08/2024 3:50 PM DREDGE OPERATOR [employer] lllm implanted on March 05, 2022 [...] to monitor remotely. ?? Bandar Jordan Device Loom Fixer Apprentice Vy Pierce MD [facility] PRO CEDURES Final Result * DEVICE CHECK - REMOTE (10/27/2024 6:13 PM DREDGE OPERATOR) Anatomical Region Laterality Modality Other Narrative 10/28/2024 8:21 AM DREDGE OPERATOR [employer] Bio-monitor III Loop Recorder. Dx; Syncope, PSVT, AT, RVOT VT s/p ablation. DOI 03/05/2022-[facility]. [employer] remote monitoring. Unscheduled ILR remote due to [...] 1) Ectopy beats: 933. See scanned report. [employer] remote f/u 11/14/2024. Shelley Looney, LARISSA Vy Pierce MD [facility] PRO CEDURES Final Result * SCAN - RADIOLOGY/IMAGING (10/19/2024) Anatomical Region Laterality Modality Other Jessica Shoemaker ASSOCIATE PROFESSOR OF ENGINEERING Final Res ult * DEVICE CHECK - REMOTE (09/26/2024 9:32 AM DREDGE OPERATOR) Anatomical Region Laterality Modality Other Narrative 10/28/2024 9:20 AM DREDGE OPERATOR [employer] Bio-monitor III Loop Recorder. Dx; Syncope, PSVT, AT, RVOT VT s/p ablation. DOI 03/05/2022-[facility]. [employer] remote monitoring. Routine ILR remote. Normal device [...] * Hepatitis C antibody (10/15/2018 11:20 AM DREDGE OPERATOR) Hep C Ab Non-Reactiv e Non-Reactiv e [facility] Blood specimen (specimen) 10/15/2018 11:20 AM DREDGE OPERATOR 10/15/2018 11:41 AM DREDGE OPERATOR Narrative [facility] - 10/15/2018 12:25 PM DREDGE OPERATOR us Notinfile Unknown LAB MICROBIOLOGY - GENERAL ORD ERABLES Final Result [facility] [address] Department [place] [address] from Last 3 Months or Most Recently Relevant to Health Maintenance Insurance MEDICARE AETNA MEDICARE AETNA MEDICARE AETNA SENIOR SUPPLEMENT Advance Directives For more information, please contact: [phone] * Full Code (Latest Code Status on File) Date Activated Date Inactivated Comments 09/07/2023 10:10 AM 09/07/2023 2:44 PM * Full Code Date Activated Date Inactivated Comments 06/20/2019 12:01 PM 06/20/2019 6:34 PM * Full Code Date Activated Date Inactivated Comments 10/15/2018 2:08 PM 10/15/2018 4:39 PM * Full Code Date Activated Date Inactivated Comments 07/16/2018 2:30 PM 07/16/2018 6:36 PM Care Teams Body Maker Relationship Specialty Start Date End Date Per Samson MD PCP - General Family Practice 06/01/23 Coretta Childers MD Consulting Physician Cardiology 08/28/23 Tima Henson MD [address] [address] Consulting Physician Otolaryngology 08/28/23
--- OUTSIDE RECORDS SUMMARY | 2024-12-09 12:15 | XMS_ITS | Patient Health Summary ---
Author Organization [facility] Address [address] [place] [address] Care Team Providers Care Warehouse Unloader Name Role Phone Edy Aviles DO Primary Care Provider [phone] Note from [facility],non-owned Affiliates and Associated Physician Practices is amultiple site organization consisting of ambulatory clinics and hospital sitesin [place], [place], [place] and [place]. This disclosure is being madepursuant to the Care Everywhere program and may not contain all information available regarding this patient. Last updated 18.[facility] Allergies * Codeine(Urticaria,Nausea and/or Vomiting) -Medium Criticality [...] Comments Blood Pressure 148/57 10/26/2021 7:27 AM DOOR SLINGER Pulse 95 10/26/2021 7:27 AM DOOR SLINGER Temperature 36.8 ??C (98.3 ??F) 10/26/2021 7:27 AM CS T Respiratory Rate 16 10/25/2021 10:58 PM DOOR SLINGER Oxygen Saturation 100% 10/26/2021 7:27 AM DOOR SLINGER Inhaled Oxygen Concentration 40% 10/25/2021 1 2:10 PM DOOR SLINGER Weight 85.7 kg (189 lb) 07/08/2022 9:04 AM CDT Height 156.2 cm (5' 1.5 ) 07/08/2022 9:04 AM CDT Body Mass Index 35.13 07/08/2022 9:04 AM CDT Medical Devices Implanted Type Area Pressure Test Operator Device Identifier Shelf Expiration Date Model / Serial / Lot Pin Hlf 255mm 5mm Jtx Lng Ss 35mm Extfix Implanted:Qty: 2 on 10/11/2021 by Jovon Maloney DO at [facility] Left: [employer] [id number] / / Pin Hlf 40mm 5mm Jtx Lng Ti Ntrd Extfix Implanted:Qty: 2 on 10/11/2021 by Jovon Maloney DO at [facility] Left: [employer] [id number] / / Bar Extfix 200mm Jtx Cfbr Nonster Disp Implanted:Qty: 2 on 10/11/2021 by Jovon Maloney DO at [facility] Left: [employer] [id number] / / Screw 3.5mm 46mm Ft Hex Drv Nlckg Fly Implanted:Qty: 1 on 10/25/2021 by Jovon Maloney DO at [facility] Left: [employer]ia [employer] [id number] / / Screw 3.5mm 50mm Ft Nonlock Hex Drv Elb Implanted:Qty: 2 on 10/25/2021 by Jvoon Maloney DO at [facility] Left: [employer] [id number] / / Screw 3.5mm 55mm Ft Slf-Tap Hex Lopro Implanted:Qty: 1 on 10/25/2021 by Jovon Maloney DO at [facility] Left: [employer] [id number] / / Screw 3.5mm 65mm T15 Lck Slf-Tap Tip Tpr Implanted:Qty: 3 on 10/25/2021 by Jovon Maloney DO at [facility] Left: [employer] [id number] / / Screw 3.5mm 70mm T15 Lck Slf-Tap Tip Tpr Implanted:Qty: 2 on 10/25/2021 by Jovon Maloney, DO at [facility] Left: [employer] [id number] / / Plate 5 Hl Lck Lopro Dist Blt Tip Tib Lt Implanted:Qty: 1 on 10/25/2021 by Jovon Maloney, DO at [facility] Left: [employer] [id number] / / Screw 3.5mm 65mm 2.2mm Mldir Lck Sq Drv Implanted:Qty: 1 on 10/25/2021 by Jovon Maloney, DO at [facility] Left: [employer] [id number] / / Screw 3.5mm 80mm Sq Drv Nonlock Lopro Implanted:Qty: 1 on 10/25/2021 by Jovon Maloney, DO at [facility] Left: [employer] [id number] / / Screw 3.5mm 75mm T15 Lck Slf-Tap Tip Tpr Implanted:Qty: 1 on 10/25/2021 by Jovon Maloney, DO at [facility] Left: [employer] [id number] / / Plate 5 Hl Lopro Lck Ulna Olcrn Dist 61 Implanted:Qty: 1 on 10/25/2021 by Jovon Maloney, DO at [facility] Left: [employer] [id number] / / Screw 3.5mm 34mm Ft Nonlock Hex Drv Elb Implanted:Qty: 1 on 10/25/2021 by Jovon Maloney, DO at [facility] Left: [employer] [id number] / / Screw 3.5mm 38mm Ft Slf-Tap Hex Lopro Implanted:Qty: 1 on 10/25/2021 by Jovon Maloney, DO at [facility] Left: [employer] [id number] / / Screw 3.5mm 40mm Ft Slf-Tap Hex Lopro Implanted:Qty: 1 on 10/25/2021 by Jovon Maloney, DO at [facility] Left: [employer] [id number] / / Explanted Type Area Pressure Test Operator Device Identifier Shelf Expiration Date Model / Serial / Lot Clamp Extfix Jtx 10.5mm Bar To Bar Mr Buitrago Explanted:Qty: 2 on 10/11/2021 at [facility] Left: [employer] [id number] / / Screw 3.5mm 55mm Ft Slf-Tap Hex Lopro Explanted:Qty: 1 on 10/25/2021 by Jovon Maloney DO at [facility] Left: [employer] [id number] / / Wire K 1.6mm 6in Hlf Bynt Pnt Ss Fx Explanted:Qty: 4 on 10/25/2021 by Jovon Maloney DO at [facility] Left: [employer] [id number] / / Screw 3.5mm 36mm Ft Slf-Tap Hex Lopro Explanted:Qty: 1 on 10/25/2021 by Jovon Maloney DO at [facility] Left: [employer] [id number] / / Procedures * DERMATOPATHOLOGY(Performed 02/23/2024) * [...] included. Case Report Dermatopathology Report ? Case: [id number] ? Authorizing Provider: ??Israel Lang MD ?Collected: ? 02/23/2024 12:00 AM ? Ordering Location: ? [facility] - ??Received: ?02/25/2024 06:55 AM ? DermPath Lab ? Pathologist: ? Maryanne Olmos MD ? Specimens: ?? A) - Skin, right paranasal cheek ? B) - Skin, right cheek ? C) - Skin, right parietal scalp ? 1:41 PM [facility] DERMATOPATHOLOGY LABORATORY Final Diagnosis Specimen A. 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 SKIN, right parietal scalp: NEUROFIBROMA (D36.10) 1:41 PM [facility] DERMATOPATHOLOGY LABORATORY Clinical History A: R/O BCC vs other B: R/O BCC vs other C: R/O BCC 1:41 PM [facility] DERMATOPATHOLOGY LABORATORY Gross Description Specimen A: Received [...] five pieces in aggregate shave biopsy measuring 33u60n6 mm. Jar 0. 1:41 PM [facility] DERMATOPATHOLOGY LABORATORY Microscopic Description Specimen A. SKIN, [...] collagen is delicate and pale. 1:41 PM [facility] DERMATOPATHOLOGY LABORATORY Disclaimer An external and internal positive and negative controls are appropriate for the histochemical, immunohistochemical and immunofluorescence stain(s) in this case (if any), except where stated explicitly. The performance characteristics of the stain(s) cited in this report were developed and its performance characteristic determined by the Dermatopathology Laboratory at [facility], directed by Dr. Yessi Jackman. These tests need not be, and therefore are not, approved by the [place] Food and Drug Administration. The tests are used for clinical purposes. Billing Codes Specimen Charges Stain Charges 16259 [id number] 96729 1 1 1 4 1:41 PM CDT [...] LAB - PATHOLOGY/CYTO LOGY ORDERABLES DERMATOPATHOLOGY LABORATORY [facility] - Department of Dermatology [address], [address] Floor [address] [phone] * XR KNEE LEFT 3VW (07/08/2022 9:02 AM CDT) Only the most recent of9 resultswithin the time period is included. Anatomical Region Laterality Modality Lower Extremity Radiographic Courtney ging 07/08/2022 9:33 AM CDT Impressions 07/08/2022 9:41 AM CDT IMPRESSION: Unchanged fracture alignment. > Dictated by Ramonita Hernandez M.D. (care program resident). I, Tramaine Ceron MD have personally reviewed and interpreted this examination/study. > Interpreting Provider: Tramaine Ceron MD on 07/08/2022 9:41 AM Narrative 07/08/2022 9:41 AM CDT PROCEDURE: ??XR KNEE LEFT 3VW, DATE/TIME OF EXAM: ??07/08/2022 9:02 AM, LOCATION ??[facility] INDICATION: S82.142D: Closed fracture of left [...] DATE/TIME OF EXAM: 07/08/2022 9:02 AM, LOCATION [facility] INDICATION: S82.142D: Closed fracture of left [...] alignment. > Dictated by Ramonita Hernandez M.D. (care program resident). I, Tramaine Ceron MD have personally reviewed and interpreted this examination/study. > Interpreting Provider: Tramaine Ceron MD on 07/08/2022 9:41 AM Jovon Maloney DO DIAGNOSTIC IMAGING O RDERABLES * (ABNORMAL) CBC W/O DIFFERENTIAL (10/26/2021 2:31 AM DOOR SLINGER) Only the most recent of6 resultswithin the time period is included. WBC 12.2(H) 3.5 - 10.5 10? 3 /uL 10/26/2021 3:15 AM DOOR SLINGER [facility] LABORATORY [facility] RBC 2.39(L) 3.80 - 5.20 10? 6 /uL 10/26/2021 3:15 AM DOOR SLINGER [facility] LABORATORY [facility] Hemoglobin 7.0(L) 12.0 - 15.6 g/dL 10/26/2021 3:15 AM DOOR SLINGER [facility] LABORATORY [facility] Hematocrit 21.7(L) 35.0 - 45.0 % 10/26/2021 3:15 AM [facility] MCV 90.8 80.7 - 98.3 fL 10/26/2021 3:15 AM [facility] MCH 29.3 26.7 - 34.0 pg 10/26/2021 3:15 AM [facility] MCHC 32.3 30.8 - 35.9 g/dL 10/26/2021 3:15 AM [facility] Platelet Count 508(H) 150 - 400 10? 3 /uL 10/26/2021 3:15 AM [facility] RDW-SD 45.7 36.0 - 50.0 fL 10/26/2021 3:15 AM [facility] RDW-CV 14.1 11.2 - 14.8 % 10/26/2021 3:15 AM [facility] MPV 8.9(L) 9.4 - 12.9 fL 10/26/2021 3:15 AM [facility] nRBC Absolute 0.00 0 10? 3 /uL 10/26/2021 3:15 AM [facility] nRBC Auto 0.0 0 /100 WBC 10/26/2021 3:15 AM [facility] Blood BLOOD SPECIMEN / Unknown Lab Venipuncture / Unknown 10/26/2021 2:31 AM DOOR SLINGER 10/26/2021 3:01 AM [facility] Jovon Maloney DO LAB - HEMATOLOGY ORD ERABLES Performing Organization Address City/State/[facility] Co de Phone Number [facility] [address] [place] [phone], [facility] [phone] * (ABNORMAL) BASIC METABOLIC PANEL (CALCIUM TOTAL) (10/26/2021 2:31 AM DOOR SLINGER) Only the most recent of6 resultswithin the time period is included. BUN 14 7 - 26 mg/dL 10/26/2021 3:29 AM [facility] Creatinine 0.95 0.56 - 0.96 mg/dL 10/26/2021 3:29 AM [facility] Sodium 134(L) 136 - 145 mmol/L 10/26/2021 3:29 AM [facility] Potassium 4.2 3.5 - 4.5 mmol/L 10/26/2021 3:29 AM [facility] LABORATORY [facility] Chloride 102 98 - 107 mmol/L 10/26/2021 [...] Lab Venipuncture / Unknown 10/26/2021 2:31 AM DOOR SLINGER 10/26/2021 3:01 AM DOOR SLINGER Jovon Maloney DO LAB - CHEMISTRY JOCELYNN GARCIA [facility] Organization Address City/State/ZIP Co de Phone Number [facility] [address] [place] [address], [facility] [phone] * XR KNEE LEFT 2VW OR LESS (10/25/2021 12:05 PM DOOR SLINGER) Only the most recent of2 resultswithin the time period is included. Anatomical Region Laterality Modality Lower Extremity Radiographic Courtney ging 10/25/2021 12:5 9 PM DOOR SLINGER Impressions 10/25/2021 1:00 PM DOOR SLINGER IMPRESSION: Internally fixated tibial plateau fracture. This report was electronically signed by TRAMAINE CERON MD ??on 10/25/2021 1:00 PM . Narrative 10/25/2021 1:00 PM DOOR SLINGER Exam: ??XR KNEE LEFT 2VW History: ??S82.142A: [...] * [place] JAQUELIN SURGERY (10/25/2021 11:36 AM DOOR SLINGER) Only the most recent of2 resultswithin the time period is included. Narrative [facility] RADIOLOGY - 10/25/2021 11:37 AM DOOR SLINGER Fluoroscopy was used for this exam in the OR. Please see the Operative report. Jovon Maloney DO FLUOROSCOPY ORDERABL ES [facility] RADIOLOGY * ETT LINE PERFORMABLE (10/25/2021 8:26 AM DOOR SLINGER) Narrative Veto Guzman DO - 10/25/2021 8:26 AM DOOR SLINGER Veto Guzman DO ? 10/25/2021 ??8:28 AM Endotracheal Tube Placement: ? Patient Location: OR. Procedure: intubation ([id number]). Procedure Section: ?? Sedation: under general anesthesia. [...] TYPE + SCREEN PANEL (10/25/2021 6:42 AM DOOR SLINGER) Only the most recent of2 resultswithin the time period is included. [facility] Antibody Screen NEG 7:30 AM DOOR SLINGER [facility] BLOOD BANK LAB ABO Rh O POS 10/25/2021 7:30 AM DOOR SLINGER [facility] BLOOD BANK LAB Blood Bank BLOOD SPECIMEN / Unknown Venipuncture / Unknown 10/25/2021 6:42 AM DOOR SLINGER 10/25/2021 6:51 AM DOOR SLINGER Jovon Maloney DO LAB - BLOOD BANK ORD ERABLES [facility] BLOOD BANK LAB [address] [place] [address], [facility] [phone] * SARS-COV-2 (COVID-19) INTERNAL (10/12/2021 3:49 PM DOOR SLINGER) [facility] COVID-19 PCR Not detected Not detected 10/13/2021 6:11 AM DOOR SLINGER [facility] MICROBIOLOGY Microbiology SPECIMEN FROM NASOPHARYNGEAL STRUCTURE / Unknown Collection / Unknown 10/12/2021 3:49 PM DOOR SLINGER 10/12/2021 4:54 PM DOOR SLINGER Narrative [facility] MICROBIOLOGY - 10/13/2021 6:11 AM DOOR SLINGER This nucleic acid amplification assay performance was validated by [facility]biology [facility]. This test has been authorized [...] Maloney DO LAB - MICROBIOLOGY O RDERABLES [facility] MICROBIOLOGY [address] [place] [address], [facility] [phone] * ETT LINE PERFORMABLE (10/11/2021 11:52 AM DOOR SLINGER) Narrative Sloan Salcedo Anes Asst - 10/11/2021 11:52 AM DOOR SLINGER Sloan Salcedo Anes Asst ? 10/11/2021 11:53 AM Endotracheal Tube Placement: ? Patient Location: OR. Intubation Event Date/Time: ??10/11/2021 10:59 AM Procedure: intubation ([id number]). Procedure Section: ?? Sedation: under general anesthesia. [...] KNEE LEFT WO CONTRAST (10/10/2021 9:26 PM DOOR SLINGER) Anatomical Region Laterality Modality Lower Extremity Computed Tomogra phy 10/10/2021 9:33 PM DOOR SLINGER Impressions 10/11/2021 9:05 AM DOOR SLINGER Impression: 1.Comminuted moderately displaced tibial plateau fracture involving the medial and lateral plateau articular surfaces. 2.Comminuted mildly displaced fibular head fracture. Report drafted by Oni Rowe (resident) IDr. TRAMAINE MD have personally reviewed and interpreted this examination/study. This report was electronically signed by TRAMAINE CERON MD ??on 10/11/2021 9:05 AM . Narrative 10/11/2021 9:05 AM DOOR SLINGER Procedure Information DATE: 10/10/2021 9:28 PM EXAMINATION: [...] (COVID-19)+INFLU A+B PCR RAPID (10/10/2021 8:35 PM DOOR SLINGER) COVID-19 PCR Not detected Not detected 10/10/20 9:01 PM [facility] Influenza A Rapid GABRIELA Not Detected Not Detected 10/10/2021 9:01 PM DOOR SLINGER [facility] Influenza B GABRIELA Rapid Not Detected Not Detected 10/10/2021 9:01 PM [facility] Microbiology SPECIMEN FROM NASOPHARYNGEAL STRUCTURE / Unknown Collection / Unknown 10/10/2021 8:35 PM DOOR SLINGER 10/10/2021 8:39 PM DOOR SLINGER Narrative [facility] - 10/10/2021 9:01 PM DOOR SLINGER Influenza assay performed by [employer]. [...] amplification assay performance was validated by [facility]. This test has [...] Jovon Maloney DO LAB - MICROBIOLOGY O THOMASREADINGLUIS [address] [address], [facility] [phone] * XR STRESS ANY JOINT (10/10/2021 8:31 PM DOOR SLINGER) Anatomical Region Laterality Modality Lower Extremity, Upper Extremity Radiographic Imaging 10/11/2021 10:1 6 AM DOOR SLINGER Impressions 10/11/2021 10:19 AM DOOR SLINGER IMPRESSION: No change in alignment of the osseous structures of the ankle status post stress. Report dictated by Ramon Burns DO (care program resident) IDr. KIMI MD, [facility] have personally reviewed and interpreted this examination/study. This report was electronically signed by KIMI TELLO MD, FRCR ??on 10/11/2021 10:19 AM . Narrative 10/11/2021 10:19 AM DOOR SLINGER EXAMINATION: XR STRESS ANY JOINT HISTORY: W11.XXXA: [...] stress. Report dictated by Ramon Burns DO (care program resident) Dr. KIMI Mosley MD, FRROSALBA have personally reviewedand interpreted this examination/study. This report was electronically signed by KIMI TELLO MD, FRCR on 10/11/2021 10:19 AM . Lilliam Aguirre MD DIAGNOSTIC IMAGING O RDERABLES * XR FEMUR LEFT 2VW (10/10/2021 8:31 PM DOOR SLINGER) Anatomical Region Laterality Modality Lower Extremity Radiographic Courtney ging 10/11/2021 10:1 0 AM DOOR SLINGER Impressions 10/11/2021 10:26 AM DOOR SLINGER IMPRESSION: 1.No acute osseous abnormality of the femur. 2.Redemonstrated lateral tibial condyle are fracture and proximal fibular fracture with large joint effusion. Report dictated by Ramon Burns DO (care program resident). Dr. KIMI Mosley MD, FRROSALBA have personally reviewed and interpreted this examination/study. This report was electronically signed by KIMI TELLO MD, FRCR ??on 10/11/2021 10:26 AM . Narrative 10/11/2021 10:26 AM DOOR SLINGER EXAMINATION: XR FEMUR LEFT 2VW HISTORY: W11.XXXA: [...] effusion. Report dictated by Ramon Burns DO (care program resident). Dr. KIMI Mosley MD, FRROSALBA have personally reviewedand interpreted this examination/study. This report was electronically signed by KIMI TELLO MD, YUSEF on 10/11/2021 10:26 AM . Lilliam Aguirre MD DIAGNOSTIC IMAGING O RDERABLES * XR PELVIS 1 OR 2VW (10/10/2021 7:59 PM DOOR SLINGER) Anatomical Region Laterality Modality Pelvis Radiographic Courtney ging 10/11/2021 10:0 4 AM DOOR SLINGER Impressions 10/11/2021 10:52 AM DOOR SLINGER IMPRESSION: No acute fracture identified. Report dictated by Ramon Burns DO (care program resident). Dr. KIMI Mosley MD, FRROSALBA have personally reviewed and interpreted this examination/study. This report was electronically signed by KIMI TELLO MD, FRCR ??on 10/11/2021 10:52 AM . Narrative 10/11/2021 10:52 AM DOOR SLINGER EXAMINATION: XR PELVIS 1 OR 2VW HISTORY: [...] identified. Report dictated by Ramon Burns DO (care program resident). I, Dr. KIMI TELLO MD, FRCR have personally reviewedand interpreted this examination/study. This report was electronically signed by KIMI TELLO MD, FRCR on 10/11/2021 10:52 AM . Lilliam Aguirre MD DIAGNOSTIC IMAGING O RDERABLES * BLOOD TYPE VERIFICATION (10/10/2021 7:08 PM DOOR SLINGER) ABO Rh O POS 10/10/2021 8:0 2 PM DOOR SLINGER [facility] BLOOD BANK LAB Blood Bank BLOOD SPECIMEN / Unknown Lab Venipuncture / Unknown 10/10/2021 7:08 PM DOOR SLINGER 10/10/2021 7:11 PM DOOR SLINGER Lilliam Aguirre MD LAB - BLOOD BANK ORD ERABLES [facility] BLOOD BANK LAB [address] [place] [address], [facility] [phone] * XR HIP 2+ VW LEFT (10/10/2021 6:55 PM DOOR SLINGER) Anatomical Region Laterality Modality Pelvis, Lower Extremity Radiogra [facility] 10/10/2021 7:17 PM DOOR SLINGER Impressions 10/11/2021 8:48 AM DOOR SLINGER IMPRESSION: 1.Fracture of the tibial condyles with involvement of the lateral tibial plateau and in the condylar eminence. There is depression of the lateral tibial plateau (approximately 9 mm). 2.Widening of lateral aspect of ankle joint is noted without definite fractures. Dictated by Andre Aguilar DO (care program resident). I, Dr. KIMI TELLO MD, FR have personally reviewed and interpreted this examination/study. This report was electronically signed by KIMI TELLO MD, FRCR ??on 10/11/2021 8:48 AM . Narrative 10/11/2021 8:48 AM DOOR SLINGER EXAMINATION: XR ANKLE LEFT 3VW OR MORE, [...] MORE, XR KNEE LEFT 3VW, XR HIP [id number] OR MORE, XR TIBIA FIBULA LEFT 2VW [...] definite fractures. Dictated by Andre Aguilar DO (care program resident). I, Dr. KIMI TELLO MD, FRCR have personally reviewedand interpreted this examination/study. This report was electronically signed by KIMI TELLO MD, FRCR on 10/11/2021 8:48 AM . Lilliam Aguirre MD DIAGNOSTIC IMAGING O RDERABLES * XR ANKLE 3+ VW LEFT (10/10/2021 6:55 PM DOOR SLINGER) Anatomical Region Laterality Modality Lower Extremity Radiographic Courtney ging 10/10/2021 7:17 PM DOOR SLINGER Impressions 10/11/2021 8:48 AM DOOR SLINGER IMPRESSION: 1.Fracture of the tibial condyles with involvement of the lateral tibial plateau and in the condylar eminence. There is depression of the lateral tibial plateau (approximately 9 mm). 2.Widening of lateral aspect of ankle joint is noted without definite fractures. Dictated by Andre Aguilar DO (care program resident). I, Dr. KIMI TELLO MD, [facility] have personally reviewed and interpreted this examination/study. This report was electronically signed by KIMI TELLO MD, ROSALBA ??on 10/11/2021 8:48 AM . Narrative 10/11/2021 8:48 AM DOOR SLINGER EXAMINATION: XR ANKLE LEFT 3VW OR MORE, [...] MORE, XR KNEE LEFT 3VW, XR HIP [id number] OR MORE, XR TIBIA FIBULA LEFT 2VW [...] definite fractures. Dictated by Andre Aguilar DO (care program resident). Dr. KIMI Mosley MD, FRROSALBA have personally reviewedand interpreted this examination/study. This report was electronically signed by KIMI TELLO MD, FRCR on 10/11/2021 8:48 AM . Lilliam Aguirre MD DIAGNOSTIC IMAGING O RDERABLES * XR TIBIA FIBULA LEFT 2VW (10/10/2021 6:54 PM DOOR SLINGER) Anatomical Region Laterality Modality Lower Extremity Radiographic Courtney ging 10/10/2021 7:17 PM DOOR SLINGER Impressions 10/11/2021 8:48 AM DOOR SLINGER IMPRESSION: 1.Fracture of the tibial condyles with involvement of the lateral tibial plateau and in the condylar eminence. There is depression of the lateral tibial plateau (approximately 9 mm). 2.Widening of lateral aspect of ankle joint is noted without definite fractures. Dictated by Andre Aguilar DO (care program resident). Dr. KIMI Mosley MD, FRROSALBA have personally reviewed and interpreted this examination/study. This report was electronically signed by KIMI TELOL MD, FRCR ??on 10/11/2021 8:48 AM . Narrative 10/11/2021 8:48 AM DOOR SLINGER EXAMINATION: XR ANKLE LEFT 3VW OR MORE, [...] MORE, XR KNEE LEFT 3VW, XR HIP [id number] OR MORE, XR TIBIA FIBULA LEFT 2VW [...] definite fractures. Dictated by Andre Aguilar DO (care program resident). I, Dr. KIMI TELLO MD, [facility] have personally reviewedand interpreted this examination/study. This report was electronically signed by KIMI TELLO MD, FRCR on 10/11/2021 8:48 AM . Lilliam Aguirre MD DIAGNOSTIC IMAGING O RDERABLES * PT-INR [facility] (10/10/2021 6:49 PM DOOR SLINGER) Pathologist [facility] PT 12.1 12.1 - 14.8 Seconds 10/10/2021 7:38 PM DOOR SLINGER [facility] LABORATORY [facility] INR 0.9 See Comment 10/10/2021 7:38 PM DOOR SLINGER [facility] Comment:The suggested therap eutic range for standard coumadin (warfarin) therapy is an INR of 2.0-3.0. For high-risk patients (Mechanical Mitral Valve Prosthesis, etc.), the suggested prophylactic therapeutic range is an INR of 2.5-3.5. Blood BLOOD SPECIMEN / Unknown Venipuncture / Unknown 10/10/2021 6:49 PM DOOR SLINGER 10/10/2021 7:28 PM DOOR SLINGER Lilliam Aguirre MD LAB - COAGULATION OR DERABLES [facility] [address] [place] [address], [facility] [phone] * (ABNORMAL) CBC W AUTO DIFFERENTIAL (10/10/2021 6:48 PM DOOR SLINGER) WBC 9.8 3.5 - 10.5 10? 3 /uL 10/10/2021 7:11 PM [facility] RBC 4.02 3.80 - 5.20 10? 6 /uL 10/10/2021 7:11 PM [facility] Hemoglobin 11.9(L) 12.0 - 15.6 g/dL 10/10/2021 7:11 PM [facility] Hematocrit 37.4 35.0 - 45.0 % 10/10/2021 7:11 PM [facility] MCV 93.0 80.7 - 98.3 fL 10/10/2021 7:11 PM [facility] MCH 29.6 26.7 - 34.0 pg 10/10/2021 7:11 PM [facility] MCHC 31.8 30.8 - 35.9 g/dL 10/10/2021 7:11 PM [facility] Platelet Count 294 150 - 400 10? 3 /uL 10/10/2021 7:11 PM [facility] RDW-SD 46.0 36.0 - 50.0 fL 10/10/2021 7:11 PM [facility] RDW-CV 13.4 11.2 - 14.8 % 10/10/2021 7:11 PM [facility] MPV 9.9 9.4 - 12.9 fL 10/10/2021 7:11 PM [facility] nRBC Absolute 0.00 0 10? 3 /uL 10/10/2021 7:11 PM [facility] nRBC Auto 0.0 0 /100 WBC 10/10/2021 7:11 PM [facility] Neutrophils % 66.2 35.0 - 70.0 % 10/10/2021 7:11 PM [facility] Lymphocytes % 21.3 20.0 - 43.0 % 10/10/2021 7:11 PM [facility] Monocytes % 10.2 5.0 - 13.0 % 10/10/2021 7:11 PM [facility] Eosinophils % 1.7 0.0 - 6.0 % 10/10/2021 7:11 PM [facility] Basophil % 0.3 0.0 - 2.0 % 10/10/2021 7:11 PM [facility] Neutrophils Absolute 6.5 1.6 - 7.0 10? 3 /uL 10/10/2021 7:11 PM [facility] Lymphocyte Absolute 2.1 1.1 - 3.9 10? 3 /uL 10/10/2021 7:11 PM [facility] Monocytes Absolute 1.00 0.26 - 1.07 10? 3 /uL 10/10/2021 7:11 PM [facility] Eosinophils Absolute 0.17 0.00 - 0.47 10? 3 /uL 10/10/2021 7:11 PM [facility] Basophils Absolute 0.03 0.00 - 0.08 10? 3 /uL 10/10/2021 7:11 PM [facility] Immature Granulocytes % 0.3 0.0 - 1.0 % 10/10/2021 7:11 PM [facility] Immature Granulocytes Absolute 0.03 10/10/2021 7:11 PM [facility] Blood BLOOD SPECIMEN / Unknown Venipuncture / Unknown 10/10/2021 6:48 PM [facility] 10/10/2021 7:01 PM [facility] Lilliam Aguirre MD LAB - HEMATOLOGY ORD ERABLES [facility] [address] [place] [address], [facility] [phone] * (ABNORMAL) COMPREHENSIVE METABOLIC PANEL (10/10/2021 6:48 PM [facility]) BUN 19 7 - 26 mg/dL 10/10/2021 7:25 PM [facility] Creatinine 1.18(H) 0.56 - 0.96 mg/dL 10/10/2021 7:25 PM [facility] Sodium 142 136 - 145 mmol/L 10/10/2021 7:25 PM [facility] Potassium 3.7 3.5 - 4.5 mmol/L 10/10/2021 7:25 PM [facility] Chloride 106 98 - 107 mmol/L 10/10/2021 7:25 PM [facility] CO2 22 22 - 29 mmol/L 10/10/2021 7:25 PM [facility] Glucose 99 70 - 115 mg/dL 10/10/2021 7:25 PM [facility] Calcium 9.9 8.4 - 10.2 mg/dL 10/10/2021 7:25 PM [facility] Protein Total 6.8 6.0 - 8.3 g/dL 10/10/2021 7:25 PM [facility] Albumin 3.6 3.4 - 5.0 g/dL 10/10/2021 7:25 PM [facility] Bilirubin Total 0.2 0.2 - 1.2 mg/dL 10/10/2021 7:25 PM [facility] Alkaline Phosphatase 93 40 - 150 U/L 10/10/2021 7:25 PM [facility] ALT 24 5 - 55 U/L 10/10/2021 7:25 PM [facility] AST 30 5 - 34 U/L 10/10/2021 7:25 PM [facility] Anion Gap 18 8 - 18 10/10/2021 7:25 PM [facility] BUN/Creatinine Ratio 16 7 - 23 10/10/2021 7:25 PM [facility] Osmolality Calculated 296 270 - 300 mOsm/kg 10/10/2021 7:25 PM [facility] Albumin/Globulin Ratio 1.1 1.1 - 2.3 10/10/2021 7:25 PM [facility] eGFR by CKD-EPI 48(L) >=90 mL/min/1.7 3 m2 10/10/2021 7:25 PM [facility] Blood BLOOD SPECIMEN / Unknown Venipuncture / Unknown 10/10/2021 6:48 PM [facility] 10/10/2021 7:01 PM [facility] Lilliam Aguirre MD LAB - CHEMISTRY JOCELYNN GARCIA [facility] Organization Address City/State/ZIP Co de Phone Number [facility] [address] [place] [id number], [facility] [phone] * CULTURE MRSA (09/25/2014 9:07 AM [facility]) Culture MRSA Screen No Growth of Methicillin Resistant Staphylococcus aureus. [facility] Nasopharyngeal 09/25/2014 9: 07 AM [facility] 09/25/2014 3:16 PM [facility] Narrative [facility] - 09/26/2014 11:18 AM [facility] [id number]#[id number] Ashok Loc/Rm/Bed: OP SGPREOP// Historical Provider MD LAB - MICROBIOLOG Y ORDERABLES Performing Organization Address [facility]/State/[facility] Co de Phone Number [facility] [address] [phone] Care Teams Warehouse Unloader Relationship Specialty Start Date End Date Edy Aviles DO [address] [place] [address] PCP - General 06/17/22
[2024-12-09 13:13] LABS: Add Urine Microscopic? YES; Appearance Urine Turbid (Clear); Bacteria Urine Rare /hpf; Bilirubin Urine Negative (Negative); Blood Urine 1+ (Negative); Color Urine Yellow (Yellow); Glucose Urine UA Negative (Negative); Ketones Urine Negative (Negative); Leukocyte Esterase Ur 3+ LEU/UL (Negative); Nitrate Urine Negative (Negative); Non Pathogenic Casts 0-2; Protein Urine 2+ mg/dL (Negative); Specific Grav Ur 1.015 (1.001-1.035); Squamous Epithelial Cell Urine Few /hpf (Few); WBC Urine >100 /hpf (0-3)
[2024-12-09 13:14] LABS: Lactic Acid Reflex 1.9 mmol/L (0.7-2.0)
[2024-12-09 13:30] LABS: Partial Thromboplastin Time 27.3 Seconds (22.3-36.8)
[2024-12-09 13:56] LABS: Basophils Percent Auto 0.3 % (0.2-1.2); Eosinophils Absolute Auto 0.1 K/mm3 (0-0.3); Eosinophils Percent Auto 0.4 % (0-4.4); Hematocrit 36.7 % (37.0-47.0); Immature Granulocyte Absolute 0.06 K/mm3 (0.00-0.031); Immature Granulocyte Percent A 0.5 % (0-0.5); Lymphocytes Absolute Auto 1.48 K/mm3 (0.9-3.2); Lymphocytes Percent Auto 12.7 % (18.3-44.2); Mean Corpuscular HGB Conc 32.7 g/dl (32-36); Mean Corpuscular Hemoglobin 27.5 pg (26-34); Mean Corpuscular Volume 84.2 fl (80-100); Monocytes Absolute Auto 0.7 K/mm3 (0.1-0.6); Monocytes Percent Auto 6.3 % (2.6-8.5); Neutrophils Absolute Auto 9.3 K/mm3 (1.3-6.7); Neutrophils Percent Auto 79.8 % (45.5-73.1); Platelet Count Result 376 k/mm3 (150-375); Red Blood Count 4.36 M/mm3 (4.2-5.4); Red Cell Distribution Width 20.4 % (11.5-14.5); White Blood Count 11.7 K/mm3 (4.5-10.0)
[2024-12-09 14:16] LABS: Alanine Aminotransferase 79 U/L (6-35); Albumin Level 3.3 g/dL (3.5-5.1); Alkaline Phosphatase 198 U/L (38-126); Anion Gap 9 mmol/L (4-12); Aspartate Amino Transferase 94 U/L (14-36); Bilirubin,Total 0.8 mg/dL (0.2-1.3); Blood Urea Nitrogen 17 mg/dL (7-17); Calcium 9.6 mg/dL (8.4-10.2); Carbon Dioxide 31 mmol/L (22-30); Chloride 89 mmol/L (98-107); Estimated CRCL calculation 45 ml/min; Estimated Glomerular Filt Rate 59; Glucose 81 mg/dL (65-110); Lipase 109 U/L (23-300); Potassium 3.5 mmol/L (3.4-5.0); Sodium 129 mmol/L (137-145)
[2024-12-09 14:28] LABS: CRP 20.1 mg/dL (<1.0)
[2024-12-09] MEDS: ONDANSETRON INJ 4 MG/2 ML VIAL IV PUSH (14:37)
[2024-12-09] MEDS: SODIUM CHLORIDE 0.9% IV 1,000 ML 999 ML IV CONT (14:37)
[2024-12-09] MEDS: HYDROmorphone HCL INJ (*CRX) 1 MG/ML SYR 0.5 MG IV PUSH (14:37)
[2024-12-09 15:20] LABS: Erythrocyte Sedimentation Rate 17 mm/hr (0-20)
--- NOTE | 2024-12-09 17:45 | PM.IMHP ---
H&P: HPI History of Present Illness Date/Time: 12/09/24 17:45 Chief Complaint: Abdominal pain. 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 The patient and her son provide the following history. She gives a 1 month history of generalized abdominal discomfort, anorexia, early satiety, occasional dysphagia, intermittent nausea and vomiting, nearly 50 lb unintentional weight loss, and an increase in her chronic back pain. CT scan at that time showed sigmoid diverticulitis with associated phlegmon small bubbles of local free air inseparable from the vaginal cuff and indeterminate ill-defined hypodensities in the liver. EGD has been scheduled and she was told to increase her PPI to twice daily and start sucralfate. Regarding the diverticulitis, she was started on metronidazole and ciprofloxacin and due to concerns for colovaginal fistula (patient reported brownish yellow discharge from the vaginal area similar to her stools) she was referred to General surgery (complete course of antibiotics, switched high-fiber diet once symptoms resolve, and follow-up with GI for colonoscopy) and Gynecology (normal exam with usual vaginal discharge and no evidence of fistula). Unfortunately she is not feeling any better and continues to have diffuse lower abdominal discomfort, poor oral intake, and back pain. She is getting lightheaded and dizzy and has stopped taking her blood pressure medications. Due to ongoing symptoms she called her doctor who instructed her to come to the emergency department as she will likely need to be admitted for further workup. She denies fever, chills, sweats, lymphadenopathy, sinus congestion, sore throat, cough, chest pain, hematemesis, melena, hematochezia, hematuria, dysuria, breast mass, and changing skin lesions. She has never had an abnormal mammogram and she is up-to-date on colonoscopy with history of benign polyps. No history of cancer. In the ED: She was afebrile on arrival with stable vital signs though blood pressures have been running at the lower end of normal. Labs are significant for WBC count of 11.7, sodium 129, chloride 89, carbon dioxide 31, total bilirubin 0.8, AST 94, ALT 79, alkaline phosphatase 198, CRP 20.1, albumin 3.3. Urine was positive for 2+ protein, 1+ blood, 3+ leukocyte esterase, 6 to 10 RBC, and greater than [address] WBC with rare bacteria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 She was started on piperacillin-tazobactam and IV fluids and she is being admitted in this setting for further treatment and workup. Review of Systems Review of Systems: 12 systems were reviewed and are negative except for as per HPI. [facility] Past Medical History Medical History (Updated 12/09/24 @ 23:25 by Corrie Cueto PA-C) Atrial tachycardia atrial tachycardia and right ventricular outflow tract tachycardia status post ablation x3 at [facility] 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46 no issue since with an EF of 69% Esophageal web Diverticulitis Vaginal fistula Insomnia Anxiety Hypertension Neuropathy Rosacea Migraine Herniated disc Headache Depression Osteoporosis Surgical History Surgical History (Updated 12/09/24 @ 23:09 by Corrie Cueto PA-C) History of lumbar surgery (06/2019) History of left salpingo-oophorectomy for benign cyst History of colonoscopy with polypectomy History of cervical spinal surgery History of cardiac radiofrequency ablation (2008) Ablation x3 for atrial tachycardia and right ventricle outflow tract tachycardia done at [facility] History of nasal surgery History of foot surgery (2015) repair of torn ligament in right foot History of knee replacement procedure of right knee (09/2014) revision-poly exchange 06/11/2020 History of hemorrhoidectomy (10/2012) History of (04/2001) Family History Family History Father Cerebrovascular accident Family history of heart disease in male family member before age 55 Hypertension Family history of lung cancer Sibling Family history of heart disease in male family member before age 55 Mother Cancer Other Family history of cardiovascular disease Social History Social History (Updated 12/09/24 @ 23:10 by Corrie Cueto PA-C) Social History: Surrogate medical decision maker: Dio Andrade, son. Code status: Full code. Smoking packs per day: 0.5 Smoking cigarettes per day: 10.0 Years smoked: 50 Smoking pack-years: 25.00 Smoking status: Current every day smoker Tobacco type: cigarettes Second hand tobacco smoke exposure: Yes Alcohol intake: never Substance use: never Substance use type: does not use Do You Feel Safe in your Home?: Yes Lack of Transportation: No Lack of Food: Never True Current Housing: I Have Housing Concerned About Future Housing: No Difficulty Paying Gas/Electric Bills: No Difficulty Paying for Meds: No Currently Unemployed: No Education: Decline to Answer Difficulty w/ Childcare or Family Care: No Living arrangements: with family Additional living arrangements comments: . Spiritual care concerns: No Meds Home Medications and Allergies Home Medications ?Medication ?Instructions ?Recorded ?Confirmed ?Type ehymxuaz-lkj-ozekb acid 0.4 1 tablet PO DAILY 01/12/20 12/09/24 History mg-lycopene 300 mcg-lutein 250 mcg tablet (Centrum Silver) cyclosporine 0.05 % eye drops in a 1 drp EACH EYE Q12H 06/13/21 12/09/24 History dropperette (Restasis) mineral oil 15 ml PO DAILY 05/19/22 12/09/24 History polyethylene glycol 3350 17 gram 17 g PO DAILY 05/19/22 12/09/24 History oral powder packet (Miralax) bumetanide 1 mg tablet 2 mg PO DAILY 12/30/23 12/09/24 History metolazone 2.5 mg tablet 2.5 mg PO EVERY OTHER DAY 12/30/23 12/09/24 History omeprazole 40 mg capsule,delayed See Rx Instructions .Route 10/17/24 12/09/24 Rx release .COMPLEX #180 caps atorvastatin 20 mg tablet See Rx Instructions .Route 11/03/24 12/09/24 Rx .COMPLEX #90 tabs calcium 600 mg (as carbonate)-vit 1 tablet PO DAILY 11/16/24 12/09/24 History D3 20 mcg (800 unit) chewable tablet (Caltrate plus D) tramadol 50 mg tablet 50 mg PO Q8H PRN pain #90 tabs 11/29/24 12/09/24 Rx tizanidine 2 mg tablet 2 mg PO TID PRN muscle spasticity 12/08/24 12/09/24 Rx #30 tabs ciprofloxacin HCl 500 mg tablet 500 mg PO Q12H #20 tabs 12/09/24 12/09/24 Rx metronidazole 500 mg tablet 500 mg PO Q12H #20 tabs 12/09/24 12/09/24 Rx potassium chloride 20 mEq 20 meq PO BID 12/09/24 12/09/24 History tablet,extended release psyllium husk 3.4 gram/5.4 gram 1 tbsp PO DAILY 12/09/24 12/09/24 History oral powder (Metamucil) Allergies Allergy/AdvReac Type Severity Reaction Status Date / Time codeine Allergy Intermediate Hives Verified 12/09/24 10:25 Vital Signs Vital Signs - 24 hr 12/09/24 10:40 12/09/24 13:40 12/09/24 13:41 Temperature 98.0 F Pulse Rate 99 Respiratory Rate 16 Blood Pressure 98/50 L 121/78 Pulse Oximetry 100 100 100 12/09/24 13:55 12/09/24 14:00 12/09/24 14:01 Temperature Pulse Rate Respiratory Rate Blood Pressure 112/73 Pulse Oximetry 100 100 100 12/09/24 14:15 12/09/24 14:31 12/09/24 14:32 Temperature Pulse Rate Respiratory Rate Blood Pressure 125/69 Pulse Oximetry 98 100 Exam Narrative: General: Nontoxic-appearing female sitting up at the side of the bed in no acute distress. Weight: 69 kg. BMI: 20.7. HEENT: PERRL, EOMI. Sclera anicteric. Tacky mucous membranes. Neck: Supple. Respiratory: Lungs are clear to auscultation bilaterally. Cardiovascular: Regular rate and rhythm with S1-S2. Gastrointestinal: Abdomen is soft and nondistended with positive bowel sounds. She is tender to palpation throughout the lower abdomen, more so in the left lower quadrant and somewhat in the suprapubic region. Left-sided CVA tenderness. Skin: Warm and dry. Extremities: No cyanosis, clubbing, or edema. Radial and pedal pulses intact. Neurological: Alert. Cranial nerves 2-12 are grossly intact. No gross focal deficits to casual conversation. Psychiatric: Pleasant and cooperative with normal mood and affect. Judgment and insight intact. H&P: Results Labs Labs: Short CBC 12/09/24 Range/Units 13:50 WBC 11.7 H (4.5-10.0) K/mm3 Hgb 12.0 (12.0-15.0) g/dL Hct 36.7 L (37.0-47.0) % Plt Count 376 H (150-375) k/mm3 BMP 12/09/24 12:55 Sodium 129 L Potassium 3.5 Chloride 89 L Carbon Dioxide 31 H BUN 17 Creatinine 0.94 Glucose 81 Calcium 9.6 Liver Function 12/09/24 Range/Units 12:55 Total Bilirubin 0.8 (0.2-1.3) mg/dL AST 94 H (14-36) U/L ALT 79 H (6-35) U/L Alkaline Phosphatase 198 H (38-126) U/L Albumin 3.3 L (3.5-5.1) g/dL Urine 12/09/24 Range/Units 12:54 Urine Color Yellow (Yellow) Urine Appearance Turbid H (Clear) Urine pH 6.0 (5.0-9.0) Ur Specific [place] 1.015 (1.001-1.035) Urine Protein 2+ H (Negative) mg/dL Urine Glucose (UA) Negative (Negative) mg/dL Impressions Chest/Abdomen/Pelvis CT 12/09/24 16:19 IMPRESSION: 1. Bone lesions, consistent with metastatic disease. Consider CT-guided biopsy of the right ilium. 2. Left lung nodules and left hilar and mediastinal lymphadenopathy, which may be infection or metastatic disease. 3. Left-sided pyelonephritis. 4. Liver masses measuring up to 2.1 cm suspicious for abscesses. 5. 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 No drainable fluid. Assessment and Plan Assessment and plan (1) Liver abscess: Code(s): K75.0 - Abscess of liver Status: Acute (2) Diverticulitis of sigmoid colon: Code(s): K57.32 - Diverticulitis of large intestine without perforation or abscess without bleeding Status: Acute (3) Pyelonephritis of left kidney: Code(s): N12 - Tubulo-interstitial nephritis, not specified as acute or chronic Status: Acute (4) Weight loss: Code(s): R63.4 - Abnormal weight loss Status: Acute (5) Nodule of left lung: Code(s): R91.1 - Solitary pulmonary nodule Status: Acute (6) Bone lesion: Code(s): M89.9 - Disorder of bone, unspecified Status: Acute (7) Dehydration: Code(s): E86.0 - Dehydration Status: Acute Plan The patient presented to the emergency department with complaints of abdominal pain with other symptoms including weight loss, anorexia, early satiety, and back pain as detailed in HPI. Labs, imaging, EKG, and all reports were personally reviewed. CT scan shows findings of chronic sigmoid diverticulitis with a web of fistulas; possible colovesicular fistula as she reports brownish yellow discharge when urinating and the passing of the air while urinating as well. There are lesions in the liver which may very well represent abscess and findings of left-sided pyelonephritis. She has been started on piperacillin/tazobactam which should cover all of these findings. ED physician spoke with the on-call surgeon and their input is appreciated. GI will also be consulted as she will need an endoscopy given ongoing anorexia, intermittent dysphagia, and weight loss. Interventional radiologist consulted for bone biopsy as there are concerns for possible bony metastases. She may need a drain placed for suspected liver abscesses as well. Regarding the left lung pulmonary nodules, I suppose these could be infectious however she will eventually need a PET scan as an outpatient given other findings. She has dry on exam and will be hydrated. Analgesics are available as needed. Blood pressures have been running at the low end of normal and we will continue to hold her antihypertensives. The rest of her home medications will be reviewed and resumed as appropriate. Findings and treatment plan were discussed with the patient. Questions were solicited and answered to satisfaction. The patient's medical management will be taken over by the hospitalist team in a.m. Quality VTE Prophylaxis VTE prophylaxis: mechanical ordered If No VTE Prophylaxis Answer both mechanical and pharmacologic: Reason no pharmacologic proph: medical contraindication (anticipate upcoming procedures) Hospitalist MIPS Advance Care Plan I have confirmed that the patient's Advanced Care Plan is present, code status is documented, or surrogate decision maker is listed in patient medical record.: Yes Medication Reconciliation I have utilized all available resources to obtain, update and review the patients current medications (includes all prescriptions, OTC, herbals, cannabis, and nutritional supplements).: Yes
[2024-12-09] MEDS: SODIUM CHLORIDE 0.9% IV 1,000 ML 150 ML IV CONT (18:10)
[2024-12-09] MEDS: PIPERACILLN/TAZ 3.375GM/NS50ML 3.375 GM/50 ML BAG IVPB (18:10)
[2024-12-09] MEDS: MORPHINE SULFATE (*CRX) 4 MG/ML INJ IV PUSH (18:54)
--- NOTE | 2024-12-09 21:15 | ADMGEN ---
This patient, Frannie Palma, was admitted to 3 [facility] Surg Room 317-01. Patient/family oriented to hospital policies and general routines including ID bracelet, bed and alarms, visiting hours, pain management, procedures, bathroom and other care routines, personal items, smoking policy, room service/diet, and visiting hours. Information on how to activate the Rapid Response Team has been discussed. Patient/Family are encouraged to report perceived risks to care and to ask questions if they do not understand what they are told or what they should do.
[2024-12-10] MEDS: PIPERACILLN/TAZ 3.375GM/NS50ML 3.375 GM/50 ML BAG IVPB ×5 (00:09→23:36)
[2024-12-10] MEDS: traMADol HCL (*CRX) 50 MG TABLET PO (00:16)
--- NOTE | 2024-12-10 00:31 | PC.NURSE ---
Pt is sitting in a chair next to her bed. She said that is, better for her back. Pt reported back pain and was given tramadol 50mg at 0016 for back pain. Pt is also currently has IV antibiotics running, urinary urgency and dizziness due to those reasons along with the administration of pain medication I brought a chair alarm into pt's room. I educated the pt that the chair alarm is for her safety and that due to the factors I listed previously she is at risk for a fall and the chair alarm will help us keep her safe. Pt is refusing the chair alarm.
[2024-12-10 06:00] VITALS: BP 102/53; PULSE 81; RESP 16; TEMP 36.4; O2SAT 98
[2024-12-10 06:35] LABS: Basophils Percent Auto 0.3 % (0.2-1.2); Eosinophils Absolute Auto 0.1 K/mm3 (0-0.3); Eosinophils Percent Auto 0.6 % (0-4.4); Hematocrit 30.8 % (37.0-47.0); Hemoglobin 10.3 g/dL (12.0-15.0); Immature Granulocyte Absolute 0.09 K/mm3 (0.00-0.031); Immature Granulocyte Percent A 0.7 % (0-0.5); Lymphocytes Absolute Auto 1.52 K/mm3 (0.9-3.2); Lymphocytes Percent Auto 11.9 % (18.3-44.2); Mean Corpuscular HGB Conc 33.4 g/dl (32-36); Mean Corpuscular Hemoglobin 27.7 pg (26-34); Mean Corpuscular Volume 82.8 fl (80-100); Mean Platelet Volume 9.9 fl (7.4-10.4); Monocytes Absolute Auto 1.2 K/mm3 (0.1-0.6); Monocytes Percent Auto 9.4 % (2.6-8.5); Neutrophils Absolute Auto 9.8 K/mm3 (1.3-6.7); Neutrophils Percent Auto 77.1 % (45.5-73.1); Platelet Count Result 369 k/mm3 (150-375); Red Blood Count 3.72 M/mm3 (4.2-5.4); White Blood Count 12.7 K/mm3 (4.5-10.0)
[2024-12-10 06:42] LABS: Alanine Aminotransferase 70 U/L (6-35); Albumin Level 3.3 g/dL (3.5-5.1); Alkaline Phosphatase 178 U/L (38-126); Anion Gap 9 mmol/L (4-12); Aspartate Amino Transferase 66 U/L (14-36); Bilirubin,Total 0.9 mg/dL (0.2-1.3); Blood Urea Nitrogen 13 mg/dL (7-17); Calcium 9.5 mg/dL (8.4-10.2); Carbon Dioxide 28 mmol/L (22-30); Chloride 92 mmol/L (98-107); Estimated CRCL calculation 40 ml/min; Estimated Glomerular Filt Rate 50; Glucose 89 mg/dL (65-110); Magnesium 1.8 mg/dL (1.6-2.3); Potassium 3.1 mmol/L (3.4-5.0); Sodium 129 mmol/L (137-145)
[2024-12-10] MEDS: POTASSIUM CHLORIDE 20 MEQ ER TABLET PO ×2 (09:51→18:50)
[2024-12-10] MEDS: PANTOPRAZOLE 40 MG TABLET PO ×2 (09:52→20:39)
[2024-12-10] MEDS: PSYLLIUM POWDER PACKET 1 PACKET PO (09:52)
[2024-12-10] MEDS: cycloSPORINE 0.4 ML OPHTH SOLUTION 1 DROP EACH EYE (09:52)
[2024-12-10] MEDS: polyethylene glycoL 3350 17 GM POWD.PACK PO (09:52)
[2024-12-10] MEDS: CALCIUM/VITAMIN D 500 MG/5 MCG (200 I.U.) TABLET PO (09:53)
--- NOTE | 2024-12-10 11:15 | P.CONGS_ITS ---
Assessment and Plan Assessment and plan (1) Diverticulitis of intestine with abscess: Code(s): K57.80 - Diverticulitis of intestine, part unspecified, with perforation and abscess without bleeding Status: Acute Assessment and Plan: exam largely benign, continue serial exams and IV antibiotics, CT reviewed with the radiologist and no drainable fluid collections ( small liver abscesses), will start clear liquid diet and advanced to low-fiber diet as tolerated (2) Pyelonephritis: Code(s): N12 - Tubulo-interstitial nephritis, not specified as acute or chronic Status: Acute Assessment and Plan: continue IV antibiotics, no evidence of obstruction at this point History of Present Illness Consult details Consult date: 12/10/24 Reason for consult: abdominal pain Requesting physician: Corrie Cueto PA-C Narrative: The patient is a 69-year-old female presenting to the emergency department complaining of lower abdominal pain. The patient reports the pain has been present for over a month. She reports that she has had an an intentional weight loss, poor appetite, weakness, bloating. Workup in the emergency department, including imaging, is significant for complicated diverticulitis with noted small liver abscesses. 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46 no issue since with an EF of 69% Esophageal web Diverticulitis Vaginal fistula Insomnia Anxiety Hypertension Neuropathy Rosacea Migraine Herniated disc Headache Depression Osteoporosis Surgical History Surgical History History of lumbar surgery (06/2019) History of left salpingo-oophorectomy for benign cyst History of colonoscopy with polypectomy History of cervical spinal surgery History of cardiac radiofrequency ablation (2008) Ablation x3 for atrial tachycardia and right ventricle outflow tract tachycardia done at [facility] History of nasal surgery History of foot surgery (2015) repair of torn ligament in right foot History of knee replacement procedure of right knee (09/2014) revision-poly exchange 06/11/2020 History of hemorrhoidectomy (10/2012) History of (04/2001) Family History Family History Father Cerebrovascular accident Family history of heart disease in male family member before age 55 Hypertension Family history of lung cancer Sibling Family history of heart disease in male family member before age 55 Mother Cancer Other Family history of cardiovascular disease Social History Social History Social History: Surrogate medical decision maker: Dio Andrade, son. Code status: Full code. Smoking packs per day: 0.5 Smoking cigarettes per day: 10.0 Years smoked: 50 Smoking pack-years: 25.00 Smoking status: Current every day smoker Tobacco type: cigarettes Second hand tobacco smoke exposure: Yes Alcohol intake: never Substance use: never Substance use type: does not use Do You Feel Safe in your Home?: Yes Lack of Transportation: No Lack of Food: Never True Current Housing: I Have Housing Concerned About Future Housing: No Difficulty Paying Gas/Electric Bills: No Difficulty Paying for Meds: No Currently Unemployed: No Education: Decline to Answer Difficulty w/ Childcare or Family Care: No Living arrangements: with family Additional living arrangements comments: . Spiritual care concerns: No Meds Home Medications and Allergies Home Medications ?Medication ?Instructions ?Recorded ?Confirmed ?Type pabeqmvh-rop-ojgqb acid 0.4 1 tablet PO DAILY 01/12/20 12/09/24 History mg-lycopene 300 mcg-lutein 250 mcg tablet (Centrum Silver) cyclosporine 0.05 % eye drops in a 1 drp EACH EYE Q12H 06/13/21 12/09/24 History dropperette (Restasis) mineral oil 15 ml PO DAILY 05/19/22 12/09/24 History polyethylene glycol 3350 17 gram 17 g PO DAILY 05/19/22 12/09/24 History oral powder packet (Miralax) bumetanide 1 mg tablet 2 mg PO DAILY 12/30/23 12/09/24 History metolazone 2.5 mg tablet 2.5 mg PO EVERY OTHER DAY 12/30/23 12/09/24 History omeprazole 40 mg capsule,delayed See Rx Instructions .Route 10/17/24 12/09/24 Rx release .COMPLEX #180 caps atorvastatin 20 mg tablet See Rx Instructions .Route 11/03/24 12/09/24 Rx .COMPLEX #90 tabs calcium 600 mg (as carbonate)-vit 1 tablet PO DAILY 11/16/24 12/09/24 History D3 20 mcg (800 unit) chewable tablet (Caltrate plus D) tramadol 50 mg tablet 50 mg PO Q8H PRN pain #90 tabs 11/29/24 12/09/24 Rx tizanidine 2 mg tablet 2 mg PO TID PRN muscle spasticity 12/08/24 12/09/24 Rx #30 tabs ciprofloxacin HCl 500 mg tablet 500 mg PO Q12H #20 tabs 12/09/24 12/09/24 Rx metronidazole 500 mg tablet 500 mg PO Q12H #20 tabs 12/09/24 12/09/24 Rx potassium chloride 20 mEq 20 meq PO BID 12/09/24 12/09/24 History tablet,extended release psyllium husk 3.4 gram/5.4 gram 1 tbsp PO DAILY 12/09/24 12/09/24 History oral powder (Metamucil) Allergies Allergy/AdvReac Type Severity Reaction Status Date / Time codeine Allergy Intermediate Hives Verified 12/09/24 10:25 Vital Signs Vital Signs - 24 hr 12/09/24 13:40 12/09/24 13:41 12/09/24 13:55 Temperature Pulse Rate Respiratory Rate Blood Pressure 121/78 Pulse Oximetry 100 100 100 Oxygen Delivery 12/09/24 14:00 12/09/24 14:01 12/09/24 14:15 Temperature Pulse Rate Respiratory Rate Blood Pressure 112/73 Pulse Oximetry 100 100 98 Oxygen Delivery 12/09/24 14:31 12/09/24 14:32 12/09/24 21:48 Temperature 36.4 C L Pulse Rate 85 Respiratory Rate 16 Blood Pressure 125/69 104/51 L Pulse Oximetry 100 98 Oxygen Delivery 12/09/24 22:32 12/10/24 06:00 Temperature 36.4 C Pulse Rate 81 Respiratory Rate 16 Blood Pressure 102/53 L Pulse Oximetry 98 Oxygen Delivery Room Air Exam 2 Const: General: cooperative, comfortable and no acute distress HENMT: Head: normal to inspection, normocephalic and atraumatic Eyes: General: appearance normal, both eyes and all related structures Neck: Neck: normal visual inspection, full ROM and no lymphadenopathy Resp: Auscultation: clear to auscultation bilaterally Cardio: Rate: regular rate Rhythm: regular rhythm GI: Inspection: normal to inspection and distended GI Palp: Yes abdominal tenderness, Yes Soft to palpation, Yes Tenderness to palpation present (GI), No Guarding due to palpation present (GI) and No Rigid due to palpation Skin: General skin exam: normal color and no rashes or lesions noted Neuro: General: patient oriented x3 and CN's II-XI intact bilaterally Extrem: General: normal to inspection and full ROM Results Labs 12/10/24 06:21 12/10/24 06:21 Labs: Abnormal lab results 12/09/24 12/09/24 12/09/24 Range/Units 12:54 12:55 13:50 WBC 11.7 H (4.5-10.0) K/mm3 RBC (4.2-5.4) M/mm3 Hgb (12.0-15.0) g/dL Hct 36.7 L (37.0-47.0) % RDW 20.4 H (11.5-14.5) % Plt Count 376 H (150-375) k/mm3 Immature Gran % (Auto) (0-0.5) % Neut % (Auto) 79.8 H (45.5-73.1) % Lymph % (Auto) 12.7 L (18.3-44.2) % [place] % (Auto) (2.6-8.5) % [place] # (Auto) 0.7 H (0.1-0.6) K/mm3 Abs Immat Gran (auto) 0.06 H (0.00-0.031) K/mm3 Absolute Neuts (auto) 9.3 H (1.3-6.7) K/mm3 Sodium 129 L (137-145) mmol/L Potassium (3.4-5.0) mmol/L Chloride 89 L (98-107) mmol/L Carbon Dioxide 31 H (22-30) mmol/L Creatinine (0.7-1.0) mg/dL Estimated GFR (59 - ) AST 94 H (14-36) U/L ALT 79 H (6-35) U/L Alkaline Phosphatase 198 H (38-126) U/L C-Reactive Protein 20.1 H (<1.0) mg/dL Albumin 3.3 L (3.5-5.1) g/dL Urine Appearance Turbid H (Clear) Urine Protein 2+ H (Negative) mg/dL Ur Blood (Man) 1+ H (Negative) Leukocyte Esterase Rfl 3+ H (Negative) TOY/UL Urine RBC 6-10 H (0-2) /hpf Urine WBC >100 H (0-3) /hpf 12/10/24 Range/Units 06:21 WBC 12.7 H (4.5-10.0) K/mm3 RBC 3.72 L (4.2-5.4) M/mm3 Hgb 10.3 L (12.0-15.0) g/dL Hct 30.8 L (37.0-47.0) % RDW 20.0 H (11.5-14.5) % Plt Count (150-375) k/mm3 Immature Gran % (Auto) 0.7 H (0-0.5) % Neut % (Auto) 77.1 H (45.5-73.1) % Lymph % (Auto) 11.9 L (18.3-44.2) % [place] % (Auto) 9.4 H (2.6-8.5) % [place] # (Auto) 1.2 H (0.1-0.6) K/mm3 Abs Immat Gran (auto) 0.09 H (0.00-0.031) K/mm3 Absolute Neuts (auto) 9.8 H (1.3-6.7) K/mm3 Sodium 129 L (137-145) mmol/L Potassium 3.1 L (3.4-5.0) mmol/L Chloride 92 L (98-107) mmol/L Carbon Dioxide (22-30) mmol/L Creatinine 1.08 H (0.7-1.0) mg/dL Estimated GFR 50 L (59 - ) AST 66 H (14-36) U/L ALT 70 H (6-35) U/L Alkaline Phosphatase 178 H (38-126) U/L C-Reactive Protein (<1.0) mg/dL Albumin 3.3 L (3.5-5.1) g/dL Urine Appearance (Clear) Urine Protein (Negative) mg/dL Ur Blood (Man) (Negative) Leukocyte Esterase Rfl (Negative) TOY/UL Urine RBC (0-2) /hpf Urine WBC (0-3) /hpf Diabetes panel 12/09/24 12/10/24 Range/Units 12:55 06:21 Sodium 129 L 129 L (137-145) mmol/L Potassium 3.5 3.1 L (3.4-5.0) mmol/L Chloride 89 L 92 L (98-107) mmol/L Carbon Dioxide 31 H 28 (22-30) mmol/L BUN 17 13 (7-17) mg/dL Creatinine 0.94 1.08 H (0.7-1.0) mg/dL Glucose 81 89 (65-110) mg/dL Calcium 9.6 9.5 (8.4-10.2) mg/dL AST 94 H 66 H (14-36) U/L ALT 79 H 70 H (6-35) U/L Alkaline Phosphatase 198 H 178 H (38-126) U/L Total Protein 7.0 7.0 (6.3-8.2) g/dL Albumin 3.3 L 3.3 L (3.5-5.1) g/dL Calcium panel 12/09/24 12/10/24 Range/Units 12:55 06:21 Calcium 9.6 9.5 (8.4-10.2) mg/dL Albumin 3.3 L 3.3 L (3.5-5.1) g/dL Pituitary panel 12/09/24 12/10/24 Range/Units 12:55 06:21 Sodium 129 L 129 L (137-145) mmol/L Potassium 3.5 3.1 L (3.4-5.0) mmol/L Chloride 89 L 92 L (98-107) mmol/L Carbon Dioxide 31 H 28 (22-30) mmol/L BUN 17 13 (7-17) mg/dL Creatinine 0.94 1.08 H (0.7-1.0) mg/dL Glucose 81 89 (65-110) mg/dL Calcium 9.6 9.5 (8.4-10.2) mg/dL Adrenal panel 12/09/24 12/10/24 Range/Units 12:55 06:21 Sodium 129 L 129 L (137-145) mmol/L Potassium 3.5 3.1 L (3.4-5.0) mmol/L Chloride 89 L 92 L (98-107) mmol/L Carbon Dioxide 31 H 28 (22-30) mmol/L BUN 17 13 (7-17) mg/dL Creatinine 0.94 1.08 H (0.7-1.0) mg/dL Glucose 81 89 (65-110) mg/dL Calcium 9.6 9.5 (8.4-10.2) mg/dL Total Bilirubin 0.8 0.9 (0.2-1.3) mg/dL AST 94 H 66 H (14-36) U/L ALT 79 H 70 H (6-35) U/L Alkaline Phosphatase 198 H 178 H (38-126) U/L Total Protein 7.0 7.0 (6.3-8.2) g/dL Albumin 3.3 L 3.3 L (3.5-5.1) g/dL All other labs normal. Imaging Abdomen CT scan report/results: report reviewed and image reviewed
--- NOTE | 2024-12-10 12:49 | WPDGICN ---
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 Incidentally noted on imaging are pelvic bone lesions suggestive of metastatic disease of unknown origin. Focal liver lesions identified on yesterday's CT scan may represent abscesses or neoplasms. An oncology consultation is recommended to evaluate the patient and recommend the most appropriate approach for ruling out metastatic disease. To further assess the pelvic anatomy and confirm the presence of a pelvic fistula, an MRI of the pelvis will be obtained. This imaging will guide further management, which may ultimately include a diverting colostomy. Surgery Service is following the patient closely. GI Consult Note Consult date/time: 12/10/24 12:49 Reason for consult: Complicated diverticulitis HPI: Frannie Palma is a 69-year-old female presenting to the emergency department with a chief complaint of lower abdominal pain, ongoing for over a month. Approximately one month ago, she was diagnosed with acute diverticulitis and treated with oral antibiotics. Her symptoms failed to improve, and she subsequently developed pneumaturia and the passage of brownish/mucousy material in her urine. She also reports unintentional weight loss, poor appetite, weakness, and bloating. An abdominal MRI performed on 12/02/2024 revealed complicated diverticulitis with left-sided ureterohydronephrosis. Additionally, liver lesions were identified, raising the possibility of hepatic abscesses or metastases. Incidentally noted pelvic bone lesions were also suggestive of metastatic disease. A CT scan done yesterday showed small bubbles of gas aroud the sigmoid area. The patient is currently hospitalized and receiving intravenous antibiotics under the care of surgery . Of note, her last colonoscopy was in 05/2022 showing diverticulosis and some small polyps. 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46 no issue since with an EF of 69% Esophageal web Diverticulitis Vaginal fistula Insomnia Anxiety Hypertension Neuropathy Rosacea Migraine Herniated disc Headache Depression Osteoporosis Surgical History Surgical History History of lumbar surgery (06/2019) History of left salpingo-oophorectomy for benign cyst History of colonoscopy with polypectomy History of cervical spinal surgery History of cardiac radiofrequency ablation (2008) Ablation x3 for atrial tachycardia and right ventricle outflow tract tachycardia done at [facility] History of nasal surgery History of foot surgery (2015) repair of torn ligament in right foot History of knee replacement procedure of right knee (09/2014) revision-poly exchange 06/11/2020 History of hemorrhoidectomy (10/2012) History of (04/2001) Family History Family History Father Cerebrovascular accident Family history of heart disease in male family member before age 55 Hypertension Family history of lung cancer Sibling Family history of heart disease in male family member before age 55 Mother Cancer Other Family history of cardiovascular disease Social History Social History Social History: Surrogate medical decision maker: Dio Andrade, son. Code status: Full code. Smoking packs per day: 0.5 Smoking cigarettes per day: 10.0 Years smoked: 50 Smoking pack-years: 25.00 Smoking status: Current every day smoker Tobacco type: cigarettes Second hand tobacco smoke exposure: Yes Alcohol intake: never Substance use: never Substance use type: does not use Do You Feel Safe in your Home?: Yes Lack of Transportation: No Lack of Food: Never True Current Housing: I Have Housing Concerned About Future Housing: No Difficulty Paying Gas/Electric Bills: No Difficulty Paying for Meds: No Currently Unemployed: No Education: Decline to Answer Difficulty w/ Childcare or Family Care: No Living arrangements: with family Additional living arrangements comments: . Spiritual care concerns: No Meds Home Medications and Allergies Home Medications ?Medication ?Instructions ?Recorded ?Confirmed ?Type mzcayjco-wgz-ztsoo acid 0.4 1 tablet PO DAILY 01/12/20 12/09/24 History mg-lycopene 300 mcg-lutein 250 mcg tablet (Centrum Silver) cyclosporine 0.05 % eye drops in a 1 drp EACH EYE Q12H 06/13/21 12/09/24 History dropperette (Restasis) mineral oil 15 ml PO DAILY 05/19/22 12/09/24 History polyethylene glycol 3350 17 gram 17 g PO DAILY 05/19/22 12/09/24 History oral powder packet (Miralax) bumetanide 1 mg tablet 2 mg PO DAILY 12/30/23 12/09/24 History metolazone 2.5 mg tablet 2.5 mg PO EVERY OTHER DAY 12/30/23 12/09/24 History omeprazole 40 mg capsule,delayed See Rx Instructions .Route 10/17/24 12/09/24 Rx release .COMPLEX #180 caps atorvastatin 20 mg tablet See Rx Instructions .Route 11/03/24 12/09/24 Rx .COMPLEX #90 tabs calcium 600 mg (as carbonate)-vit 1 tablet PO DAILY 11/16/24 12/09/24 History D3 20 mcg (800 unit) chewable tablet (Caltrate plus D) tramadol 50 mg tablet 50 mg PO Q8H PRN pain #90 tabs 11/29/24 12/09/24 Rx tizanidine 2 mg tablet 2 mg PO TID PRN muscle spasticity 12/08/24 12/09/24 Rx #30 tabs ciprofloxacin HCl 500 mg tablet 500 mg PO Q12H #20 tabs 12/09/24 12/09/24 Rx metronidazole 500 mg tablet 500 mg PO Q12H #20 tabs 12/09/24 12/09/24 Rx potassium chloride 20 mEq 20 meq PO BID 12/09/24 12/09/24 History tablet,extended release psyllium husk 3.4 gram/5.4 gram 1 tbsp PO DAILY 12/09/24 12/09/24 History oral powder (Metamucil) Allergies Allergy/AdvReac Type Severity Reaction Status Date / Time codeine Allergy Intermediate Hives Verified 12/09/24 10:25 Vital Signs Vital Signs - 24 hr 12/09/24 13:40 12/09/24 13:41 12/09/24 13:55 Temperature Pulse Rate Respiratory Rate Blood Pressure 121/78 Pulse Oximetry 100 100 100 Oxygen Delivery 12/09/24 14:00 12/09/24 14:01 12/09/24 14:15 Temperature Pulse Rate Respiratory Rate Blood Pressure 112/73 Pulse Oximetry 100 100 98 Oxygen Delivery 12/09/24 14:31 12/09/24 14:32 12/09/24 21:48 Temperature 97.5 F L Pulse Rate 85 Respiratory Rate 16 Blood Pressure 125/69 104/51 L Pulse Oximetry 100 98 Oxygen Delivery 12/09/24 22:32 12/10/24 06:00 Temperature 97.6 F Pulse Rate 81 Respiratory Rate 16 Blood Pressure 102/53 L Pulse Oximetry 98 Oxygen Delivery Room Air Exam Narrative: Abdomen: Tender to deep and superficial palpation on LLQ, rebound (+). Bowel sounds present. Rest of the examination within normal limits. Results Labs 12/10/24 06:21 12/10/24 06:21 Labs: Short CBC 12/09/24 12/10/24 Range/Units 13:50 06:21 WBC 11.7 H 12.7 H (4.5-10.0) K/mm3 Hgb 12.0 10.3 L (12.0-15.0) g/dL Hct 36.7 L 30.8 L (37.0-47.0) % Plt Count 376 H 369 (150-375) k/mm3 BMP 12/09/24 12/10/24 12:55 06:21 Sodium 129 L 129 L Potassium 3.5 3.1 L Chloride 89 L 92 L Carbon Dioxide 31 H 28 BUN 17 13 Creatinine 0.94 1.08 H Glucose 81 89 Calcium 9.6 9.5 Liver Function 12/09/24 12/10/24 Range/Units 12:55 06:21 Total Bilirubin 0.8 0.9 (0.2-1.3) mg/dL AST 94 H 66 H (14-36) U/L ALT 79 H 70 H (6-35) U/L Alkaline Phosphatase 198 H 178 H (38-126) U/L Albumin 3.3 L 3.3 L (3.5-5.1) g/dL Urine 12/09/24 Range/Units 12:54 Urine Color Yellow (Yellow) Urine Appearance Turbid H (Clear) Urine pH 6.0 (5.0-9.0) Ur Specific [place] 1.015 (1.001-1.035) Urine Protein 2+ H (Negative) mg/dL Urine Glucose (UA) Negative (Negative) mg/dL
[2024-12-10 12:52] VITALS: O2SAT 98
[2024-12-10] MEDS: POTASSIUM CHLORIDE INJ 40 MEQ in SODIUM CHLORIDE 0.9% IV 500 ML 25 MEQ IVPB (13:01)
[2024-12-10 14:00] VITALS: BP 123/55; PULSE 95; RESP 16; TEMP 36.7; O2SAT 100
--- NOTE | 2024-12-10 17:23 | P.PNIM_ITS ---
Progress Note: A&P Assessment and Plan (1) Liver abscess: Code(s): K75.0 - Abscess of liver Status: Acute (2) Diverticulitis of sigmoid colon: Code(s): K57.32 - Diverticulitis of large intestine without perforation or abscess without bleeding Status: Acute (3) Pyelonephritis of left kidney: Code(s): N12 - Tubulo-interstitial nephritis, not specified as acute or chronic Status: Acute (4) Weight loss: Code(s): R63.4 - Abnormal weight loss Status: Acute (5) Nodule of left lung: Code(s): R91.1 - Solitary pulmonary nodule Status: Acute (6) Bone lesion: Code(s): M89.9 - Disorder of bone, unspecified Status: Acute (7) Dehydration: Code(s): E86.0 - Dehydration Status: Acute Plan Record review indicates the patient was seen by Dr. Vargas on November 23, 2024 for abdominal pain. She was advised to finish the prescribed antibiotics of for diverticulitis and follow-up with GI for colonoscopy and follow-up with him in [address] scan abdomen/pelvis on 11/16/2024:which showed Nonobstructing bilateral renal calculi, as above. Mild left hydronephrosis could reflect recently passed stone. No ureteral stones seen currently. Findings compatible with sigmoid diverticulitis with associated pericolonic phlegmon and small bubbles of local free air. Phlegmon is also inseparable from the vaginal cuff. Correlate clinically for any clinical signs of fistulous connection to the vaginal cuff. Ill-defined hypodense hepatic mass like lesions measuring 3.3 cm and 1.5 cm in size, as detailed above. These are indeterminate. Pre and postcontrast CT or MR recommended for for further evaluation. Grouped nodular opacities left lung base, suggestive of infectious/inflammatory process and/or small impacted airways. Follow-up exam in 2-3 months advised given size of the nodules. CT Scan 12/09/2024:1. Bone lesions, consistent with metastatic disease. Consider CT-guided biopsy of the right ilium. 2. Left lung nodules and left hilar and mediastinal lymphadenopathy, which may be infection or metastatic disease. 3. Left-sided pyelonephritis. 4. Liver masses measuring up to 2.1 cm suspicious for abscesses. 5. 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 No drainable fluid. Abdomen MRI : IMPRESSION: 1. Enhancing bone lesions in the pelvis suspicious for metastatic disease. Could consider CT-guided bone biopsy. 2. Mild to moderate left hydroureteronephrosis with transition point at the distal left ureter suggesting stricture related to adjacent inflammatory changes which could be related to diverticulitis. 3. Multiple complex cystic lesions in the liver without evident solid enhancing soft tissue components to suggest neoplasm without evident correlate on the localizer images for an earlier lumbar spine MR dated 01/12/2024. This could represent hepatic abscesses related to the previously noted diverticulitis. She saw Cammy Dennis APRN [facility] for vaginal discharge on 11/16 and performed vaginal culture. Patient has the ongoing generalized abdominal pain, early satiety and approximately 50 lb weight loss and chronic back pain. Surgeries consulted advised to continues serial exams and IV antibiotics. Surgeon reviewed CT reviewed with the radiologist and no drainable fluid collection, patient is started with clear liquid diet and advanced to low-fiber as tolerated. GI is following and due to the concerns of metastatic disease and oncology consulted and appreciate recommendations. Patient is currently on Zosyn. Currently on low-fiber diet. Subjective Date/time seen: 12/10/24 17:23 Interval history: Patient was evaluated the bedside. Patient is a frustrated when taking history. She wants to look her previous chart and gather information. Even though insisting the importance of history taking she replies in 1 or 2 words. Review of Systems Review of Systems: 12 systems were reviewed and are negativ e except for as per HPI. Exam Narrative: General: Nontoxic-appearing female sitting up at the side of the bed in no acute distress. Weight: 69 kg. BMI: 20.7. HEENT: PERRL, EOMI. Sclera anicteric. Tacky mucous membranes. Neck: Supple. Respiratory: Lungs are clear to auscultation bilaterally. Cardiovascular: Regular rate and rhythm with S1-S2. Gastrointestinal: Abdomen is soft and nondistended with positive bowel sounds. She is tender to palpation throughout the lower abdomen, more so in the left lower quadrant and somewhat in the suprapubic region. Left-sided CVA tenderness. Skin: Warm and dry. Extremities: No cyanosis, clubbing, or edema. Radial and pedal pulses intact. Neurological: Alert. Cranial nerves 2-12 are grossly intact. No gross focal deficits to casual conversation. Psychiatric: Pleasant and cooperative with normal mood and affect. Judgment and insight intact. Objective Data Vital Signs Vital Signs: Vital Signs - 24 hr 12/09/24 21:48 12/09/24 22:32 12/10/24 06:00 Temperature 97.5 F L 97.6 F Pulse Rate 85 81 Respiratory Rate 16 16 Blood Pressure 104/51 L 102/53 L Pulse Oximetry 98 98 Oxygen Delivery Room Air 12/10/24 12:52 12/10/24 14:00 Temperature 98.1 F Pulse Rate 95 Respiratory Rate 16 Blood Pressure 123/55 L Pulse Oximetry 98 100 Oxygen Delivery Room Air Intake/Output Intake/Output: Intake & Output 12/07/24 12/08/24 12/09/24 12/10/24 23:59 23:59 23:59 23:59 Intake Total 1050 808.3 Balance 1050 808.3 Meds/Results Medications: Active Medications Generic Name Dose Route Start Last Admin Trade Name Freq PRN Reason Stop Dose Admin Acetaminophen 650 mg 12/09/24 17:07 Acetaminophen 325 Mg Tablet PO Q4H PRN Mild Pain (1-3) or Fever Calcium Carbonate 500 mg 12/10/24 09:00 12/10/24 09:53 Calcium/Vitamin D 500 Mg/5 Mcg (200 I.U.) Tablet PO 500 mg QAM JEISON Administration Cyclosporine 1 drop 12/09/24 23:35 12/10/24 09:52 Cyclosporine 0.4 Ml Ophth Solution EACH EYE 1 drop Q12HR JEISON Administration Piperacillin/Tazobactam/Dextrose 3.375 gm in 50 mls @ 100 mls/hr 12/09/24 18:00 12/10/24 13:37 Zosyn 3.375 Gm/Ns 50 Ml IVPB Infused Q6H JEISON Infusion Ondansetron HCl 4 mg 12/09/24 17:07 Ondansetron Inj 4 Mg/2 Ml Vial IV PUSH Q4H PRN Nausea Pantoprazole Sodium 40 mg 12/10/24 09:00 12/10/24 09:52 Pantoprazole 40 Mg Tablet PO 40 mg Q12HR JEISON Administration Polyethylene Glycol 17 gm 12/10/24 09:00 12/10/24 09:52 Polyethylene Glycol 3350 17 Gm Powd.Pack PO 17 gm DAILY JEISON Administration Potassium Chloride 20 meq 12/10/24 09:00 12/10/24 09:51 Potassium Chloride 20 Meq Er Tablet PO 20 meq BID JEISON Administration Psyllium Hydrophilic Mucilloid 1 packet 12/10/24 09:00 12/10/24 09:52 Psyllium Powder Packet PO 1 packet DAILY JEISON Administration Tramadol HCl 50 mg 12/09/24 23:34 12/10/24 00:16 Tramadol Hcl (*Crx) 50 Mg Tablet PO 50 mg Q8H PRN Administration pain 4-6 Radiology Results: ITS Impressions Chest/Abdomen/Pelvis CT 12/09/24 16:19 IMPRESSION: 1. Bone lesions, consistent with metastatic disease. Consider CT-guided biopsy of the right ilium. 2. Left lung nodules and left hilar and mediastinal lymphadenopathy, which may be infection or metastatic disease. 3. Left-sided pyelonephritis. 4. Liver masses measuring up to 2.1 cm suspicious for abscesses. 5. 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 No drainable fluid. Labs Labs: Laboratory Results - last 24 hr 12/10/24 06:21 WBC 12.7 H RBC 3.72 L Hgb 10.3 L Hct 30.8 L MCV 82.8 MCH 27.7 MCHC 33.4 RDW 20.0 H Plt Count 369 MPV 9.9 Immature Gran % (Auto) 0.7 H Neut % (Auto) 77.1 H Lymph % (Auto) 11.9 L Bowman % (Auto) 9.4 H Eos % (Auto) 0.6 Baso % (Auto) 0.3 Lymph # (Auto) 1.52 Bowman # (Auto) 1.2 H Eos # (Auto) 0.1 Baso # (Auto) 0.0 Abs Immat Gran (auto) 0.09 H Absolute Neuts (auto) 9.8 H Absolute Nucleated RBC 0.000 Nucleated RBC % 0.0 Sodium 129 L Potassium 3.1 L Chloride 92 L Carbon Dioxide 28 Anion Gap 9 BUN 13 Creatinine 1.08 H Estim Creat Clear Calc 40 Estimated GFR 50 L Glucose 89 Calcium 9.5 Magnesium 1.8 Total Bilirubin 0.9 AST 66 H ALT 70 H Alkaline Phosphatase 178 H Total Protein 7.0 Albumin 3.3 L TSH (Reflex) 1.770 Quality VTE Prophylaxis VTE prophylaxis: mechanical ordered Hospitalist MIPS Advance Care Plan I have confirmed that the patient's Advanced Care Plan is present, code status is documented, or surrogate decision maker is listed in patient medical record.: Yes Medication Reconciliation I have utilized all available resources to obtain, update and review the patients current medications (includes all prescriptions, OTC, herbals, cannabis, and nutritional supplements).: Yes
[2024-12-10 21:30] VITALS: BP 124/63; PULSE 88; RESP 18; TEMP 36.9; O2SAT 100
[2024-12-11 05:17] VITALS: BP 106/49; PULSE 75; RESP 16; TEMP 36.8; O2SAT 99
[2024-12-11] MEDS: PIPERACILLN/TAZ 3.375GM/NS50ML 3.375 GM/50 ML BAG IVPB ×3 (05:30→18:45)
[2024-12-11 08:02] LABS: Hematocrit 28.5 % (37.0-47.0); Hemoglobin 9.3 g/dL (12.0-15.0); Mean Corpuscular HGB Conc 32.6 g/dl (32-36); Mean Corpuscular Hemoglobin 27.4 pg (26-34); Mean Corpuscular Volume 83.8 fl (80-100); Mean Platelet Volume 10.4 fl (7.4-10.4); Platelet Count Result 361 k/mm3 (150-375); Red Cell Distribution Width 20.5 % (11.5-14.5); White Blood Count 8.4 K/mm3 (4.5-10.0)
[2024-12-11 08:16] LABS: Alanine Aminotransferase 44 U/L (6-35); Albumin Level 2.7 g/dL (3.5-5.1); Alkaline Phosphatase 146 U/L (38-126); Anion Gap 6 mmol/L (4-12); Aspartate Amino Transferase 40 U/L (14-36); Bilirubin,Total 0.8 mg/dL (0.2-1.3); Blood Urea Nitrogen 9 mg/dL (7-17); Carbon Dioxide 27 mmol/L (22-30); Chloride 99 mmol/L (98-107); Estimated CRCL calculation 42 ml/min; Estimated Glomerular Filt Rate 53; Glucose 81 mg/dL (65-110); Potassium 3.4 mmol/L (3.4-5.0); Sodium 132 mmol/L (137-145)
[2024-12-11] MEDS: PANTOPRAZOLE 40 MG TABLET PO ×2 (10:12→21:18)
[2024-12-11] MEDS: POTASSIUM CHLORIDE 20 MEQ ER TABLET PO ×2 (10:12→18:47)
[2024-12-11] MEDS: CALCIUM/VITAMIN D 500 MG/5 MCG (200 I.U.) TABLET PO (10:13)
--- NOTE | 2024-12-11 12:36 | PM.PNGS ---
Progress Note: A&P Assessment and Plan (1) Diverticulitis of intestine with abscess: Code(s): K57.80 - Diverticulitis of intestine, part unspecified, with perforation and abscess without bleeding Status: Acute Assessment and Plan: exam improved, cont abx and low fiber diet, await MRI per GI workup Subjective Subjective Date/Time Seen: 12/11/24 12:36 Interval history: feels better, less pain, adamaris low fiber diet Review of Systems Review of Systems: All systems reviewed & are unremarkable except as noted in HPI and below Exam Const: General: cooperative, comfortable and no acute distress Resp: Auscultation: clear to auscultation bilaterally Cardio: Rate: regular rate Rhythm: regular rhythm GI: Inspection: normal to inspection and non-distended GI Palp: No abdominal tenderness and Yes Soft to palpation Objective Data Vital Signs Vital Signs: Vital Signs - 24 hr 12/10/24 12:52 12/10/24 14:00 12/10/24 20:40 Temperature 36.7 C Pulse Rate 95 Respiratory Rate 16 Blood Pressure 123/55 L Pulse Oximetry 98 100 Oxygen Delivery Room Air Room Air 12/10/24 21:30 12/11/24 05:17 Temperature 36.9 C 36.8 C Pulse Rate 88 75 Respiratory Rate 18 16 Blood Pressure 124/63 106/49 L Pulse Oximetry 100 99 Oxygen Delivery Intake/Output Intake/Output: Intake & Output 12/08/24 12/09/24 12/10/24 12/11/24 23:59 23:59 23:59 23:59 Intake Total 1050 978.3 600 Balance 1050 978.3 600 Meds/Results Medications: Active Medications Generic Name Dose Route Start Last Admin Trade Name Freq PRN Reason Stop Dose Admin Acetaminophen 650 mg 12/09/24 17:07 Acetaminophen 325 Mg Tablet PO Q4H PRN Mild Pain (1-3) or Fever Calcium Carbonate 500 mg 12/10/24 09:00 12/11/24 10:13 Calcium/Vitamin D 500 Mg/5 Mcg (200 I.U.) Tablet PO 500 mg QAM JEISON Administration Cyclosporine 1 drop 12/09/24 23:35 12/11/24 10:23 Cyclosporine 0.4 Ml Ophth Solution EACH EYE Not Given Q12HR JEISON Piperacillin/Tazobactam/Dextrose 3.375 gm in 50 mls @ 100 mls/hr 12/09/24 18:00 12/11/24 05:30 Zosyn 3.375 Gm/Ns 50 Ml IVPB 100 mls/hr Q6H JEISON Administration Ondansetron HCl 4 mg 12/09/24 17:07 Ondansetron Inj 4 Mg/2 Ml Vial IV PUSH Q4H PRN Nausea Pantoprazole Sodium 40 mg 12/10/24 09:00 12/11/24 10:12 Pantoprazole 40 Mg Tablet PO 40 mg Q12HR JEISON Administration Polyethylene Glycol 17 gm 12/10/24 09:00 12/11/24 10:14 Polyethylene Glycol 3350 17 Gm Powd.Pack PO Not Given DAILY JEISON Potassium Chloride 20 meq 12/10/24 09:00 12/11/24 10:12 Potassium Chloride 20 Meq Er Tablet PO 20 meq BID JEISON Administration Psyllium Hydrophilic Mucilloid 1 packet 12/10/24 09:00 12/11/24 10:14 Psyllium Powder Packet PO Not Given DAILY JEISON Tramadol HCl 50 mg 12/09/24 23:34 12/10/24 00:16 Tramadol Hcl (*Crx) 50 Mg Tablet PO 50 mg Q8H PRN Administration pain 4-6 Radiology Results: ITS Impressions Chest/Abdomen/Pelvis CT 12/09/24 16:19 IMPRESSION: 1. Bone lesions, consistent with metastatic disease. Consider CT-guided biopsy of the right ilium. 2. Left lung nodules and left hilar and mediastinal lymphadenopathy, which may be infection or metastatic disease. 3. Left-sided pyelonephritis. 4. Liver masses measuring up to 2.1 cm suspicious for abscesses. 5. 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 No drainable fluid. Labs Labs: Laboratory Results - last 24 hr 12/11/24 07:02 WBC 8.4 RBC 3.40 L Hgb 9.3 L Hct 28.5 L MCV 83.8 MCH 27.4 MCHC 32.6 RDW 20.5 H Plt Count 361 MPV 10.4 Sodium 132 L Potassium 3.4 Chloride 99 Carbon Dioxide 27 Anion Gap 6 BUN 9 Creatinine 1.03 H Estim Creat Clear Calc 42 Estimated GFR 53 L Glucose 81 Calcium 9.0 Total Bilirubin 0.8 AST 40 H ALT 44 H Alkaline Phosphatase 146 H Total Protein 6.0 L Albumin 2.7 L
--- NOTE | 2024-12-11 13:26 | WPDGIPROGNO ---
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 Clinically there is a high suspicion of a colovesical fistula according to her history. MRI performed this morning however official reading is not available. Will continue to follow along with surgery service. If there is a clear fistula which is not resolving, she might need a diverting colostomy. Subjective Date/time seen: 12/11/24 13:26 Interval history: No change in her current status compared to yesterday. No abdominal pain. Patient coninue to pass brownish material and air through her urine ( pneumaturia). Exam Narrative: no changes compared to yesterday's. Objective Data Vital Signs Vital Signs: Vital Signs - 24 hr 12/10/24 14:00 12/10/24 20:40 12/10/24 21:30 Temperature 98.1 F 98.4 F Pulse Rate 95 88 Respiratory Rate 16 18 Blood Pressure 123/55 L 124/63 Pulse Oximetry 100 100 Oxygen Delivery Room Air 12/11/24 05:17 Temperature 98.2 F Pulse Rate 75 Respiratory Rate 16 Blood Pressure 106/49 L Pulse Oximetry 99 Oxygen Delivery Intake/Output Intake/Output: Intake & Output 12/08/24 12/09/24 12/10/24 12/11/24 23:59 23:59 23:59 23:59 Intake Total 1050 978.3 650 Balance 1050 978.3 650 Meds/Results Medications: Active Medications Generic Name Dose Route Start Last Admin Trade Name Freq PRN Reason Stop Dose Admin Acetaminophen 650 mg 12/09/24 17:07 Acetaminophen 325 Mg Tablet PO Q4H PRN Mild Pain (1-3) or Fever Calcium Carbonate 500 mg 12/10/24 09:00 12/11/24 10:13 Calcium/Vitamin D 500 Mg/5 Mcg (200 I.U.) Tablet PO 500 mg QAM JEISON Administration Cyclosporine 1 drop 12/09/24 23:35 12/11/24 10:23 Cyclosporine 0.4 Ml Ophth Solution EACH EYE Not Given Q12HR JEISON Piperacillin/Tazobactam/Dextrose 3.375 gm in 50 mls @ 100 mls/hr 12/09/24 18:00 12/11/24 13:04 Zosyn 3.375 Gm/Ns 50 Ml IVPB 100 mls/hr Q6H JEISON Administration Ondansetron HCl 4 mg 12/09/24 17:07 Ondansetron Inj 4 Mg/2 Ml Vial IV PUSH Q4H PRN Nausea Pantoprazole Sodium 40 mg 12/10/24 09:00 12/11/24 10:12 Pantoprazole 40 Mg Tablet PO 40 mg Q12HR JEISON Administration Polyethylene Glycol 17 gm 12/10/24 09:00 12/11/24 10:14 Polyethylene Glycol 3350 17 Gm Powd.Pack PO Not Given DAILY JEISON Potassium Chloride 20 meq 12/10/24 09:00 12/11/24 10:12 Potassium Chloride 20 Meq Er Tablet PO 20 meq BID JEISON Administration Psyllium Hydrophilic Mucilloid 1 packet 12/10/24 09:00 12/11/24 10:14 Psyllium Powder Packet PO Not Given DAILY JEISON Tramadol HCl 50 mg 12/09/24 23:34 12/10/24 00:16 Tramadol Hcl (*Crx) 50 Mg Tablet PO 50 mg Q8H PRN Administration pain 4-6 Radiology Results: ITS Impressions Chest/Abdomen/Pelvis CT 12/09/24 16:19 IMPRESSION: 1. Bone lesions, consistent with metastatic disease. Consider CT-guided biopsy of the right ilium. 2. Left lung nodules and left hilar and mediastinal lymphadenopathy, which may be infection or metastatic disease. 3. Left-sided pyelonephritis. 4. Liver masses measuring up to 2.1 cm suspicious for abscesses. 5. 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 No drainable fluid. Labs Labs: Laboratory Results - last 24 hr 12/11/24 07:02 WBC 8.4 RBC 3.40 L Hgb 9.3 L Hct 28.5 L MCV 83.8 MCH 27.4 MCHC 32.6 RDW 20.5 H Plt Count 361 MPV 10.4 Sodium 132 L Potassium 3.4 Chloride 99 Carbon Dioxide 27 Anion Gap 6 BUN 9 Creatinine 1.03 H Estim Creat Clear Calc 42 Estimated GFR 53 L Glucose 81 Calcium 9.0 Total Bilirubin 0.8 AST 40 H ALT 44 H Alkaline Phosphatase 146 H Total Protein 6.0 L Albumin 2.7 L
--- NOTE | 2024-12-11 13:55 | PM.IMPN ---
Progress Note: A&P Assessment and Plan (1) Liver abscess: Code(s): K75.0 - Abscess of liver Status: Acute (2) Diverticulitis of sigmoid colon: Code(s): K57.32 - Diverticulitis of large intestine without perforation or abscess without bleeding Status: Acute (3) Pyelonephritis of left kidney: Code(s): N12 - Tubulo-interstitial nephritis, not specified as acute or chronic Status: Acute (4) Weight loss: Code(s): R63.4 - Abnormal weight loss Status: Acute (5) Nodule of left lung: Code(s): R91.1 - Solitary pulmonary nodule Status: Acute (6) Bone lesion: Code(s): M89.9 - Disorder of bone, unspecified Status: Acute (7) Dehydration: Code(s): E86.0 - Dehydration Status: Acute Plan Record review indicates the patient was seen by Dr. Vargas on November 23, 2024 for abdominal pain. She was advised to finish the prescribed antibiotics of for diverticulitis and follow-up with GI for colonoscopy and follow-up with him in [address] scan abdomen/pelvis on 11/16/2024:which showed Nonobstructing bilateral renal calculi, as above. Mild left hydronephrosis could reflect recently passed stone. No ureteral stones seen currently. Findings compatible with sigmoid diverticulitis with associated pericolonic phlegmon and small bubbles of local free air. Phlegmon is also inseparable from the vaginal cuff. Correlate clinically for any clinical signs of fistulous connection to the vaginal cuff. Ill-defined hypodense hepatic mass like lesions measuring 3.3 cm and 1.5 cm in size, as detailed above. These are indeterminate. Pre and postcontrast CT or MR recommended for for further evaluation. Grouped nodular opacities left lung base, suggestive of infectious/inflammatory process and/or small impacted airways. Follow-up exam in 2-3 months advised given size of the nodules. CT Scan 12/09/2024:1. Bone lesions, consistent with metastatic disease. Consider CT-guided biopsy of the right ilium. 2. Left lung nodules and left hilar and mediastinal lymphadenopathy, which may be infection or metastatic disease. 3. Left-sided pyelonephritis. 4. Liver masses measuring up to 2.1 cm suspicious for abscesses. 5. 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 No drainable fluid. Abdomen MRI : IMPRESSION: 1. Enhancing bone lesions in the pelvis suspicious for metastatic disease. Could consider CT-guided bone biopsy. 2. Mild to moderate left hydroureteronephrosis with transition point at the distal left ureter suggesting stricture related to adjacent inflammatory changes which could be related to diverticulitis. 3. Multiple complex cystic lesions in the liver without evident solid enhancing soft tissue components to suggest neoplasm without evident correlate on the localizer images for an earlier lumbar spine MR dated 01/12/2024. This could represent hepatic abscesses related to the previously noted diverticulitis. She saw Cammy Dennis APRN [facility] for vaginal discharge on 11/16 and performed vaginal culture. Patient has the ongoing generalized abdominal pain, early satiety and approximately 50 lb weight loss and chronic back pain. Surgeries consulted advised to continues serial exams and IV antibiotics. Surgeon reviewed CT reviewed with the radiologist and no drainable fluid collection, patient is started with clear liquid diet and advanced to low-fiber as tolerated. GI is following and due to the concerns of metastatic disease and oncology consulted and appreciate recommendations. Patient is currently on Zosyn. Currently on low-fiber diet.Discussed with radiologist. Tomorrow patient will undergo CT-guided biopsy of the right ilium. Pending oncology evaluation and MRI pelvis read.NPO after midnight. Subjective Date/time seen: 12/11/24 13:55 Interval history: Discussed with radiologist. Tomorrow patient will undergo CT-guided biopsy of the right ilium. Pending oncology evaluation and MRI pelvis read.NPO after midnight.Called her son and updated the ongoing events. Review of Systems Review of Systems: 12 systems were reviewed and are negative except for as per HPI. Exam Narrative: General: Nontoxic-appearing female sitting up at the side of the bed in no acute distress. Weight: 69 kg. BMI: 20.7. HEENT: PERRL, EOMI. Sclera anicteric. Tacky mucous membranes. Neck: Supple. Respiratory: Lungs are clear to auscultation bilaterally. Cardiovascular: Regular rate and rhythm with S1-S2. Gastrointestinal: Abdomen is soft and nondistended with positive bowel sounds. She is tender to palpation throughout the lower abdomen, more so in the left lower quadrant and somewhat in the suprapubic region. Left-sided CVA tenderness. Skin: Warm and dry. Extremities: No cyanosis, clubbing, or edema. Radial and pedal pulses intact. Neurological: Alert. Cranial nerves 2-12 are grossly intact. No gross focal deficits to casual conversation. Psychiatric: Pleasant and cooperative with normal mood and affect. Judgment and insight intact. Objective Data Vital Signs Vital Signs: Vital Signs - 24 hr 12/10/24 14:00 12/10/24 20:40 12/10/24 21:30 Temperature 98.1 F 98.4 F Pulse Rate 95 88 Respiratory Rate 16 18 Blood Pressure 123/55 L 124/63 Pulse Oximetry 100 100 Oxygen Delivery Room Air 12/11/24 05:17 Temperature 98.2 F Pulse Rate 75 Respiratory Rate 16 Blood Pressure 106/49 L Pulse Oximetry 99 Oxygen Delivery Intake/Output Intake/Output: Intake & Output 12/08/24 12/09/24 12/10/24 12/11/24 23:59 23:59 23:59 23:59 Intake Total 1050 978.3 650 Balance 1050 978.3 650 Meds/Results Medications: Active Medications Generic Name Dose Route Start Last Admin Trade Name Freq PRN Reason Stop Dose Admin Acetaminophen 650 mg 12/09/24 17:07 Acetaminophen 325 Mg Tablet PO Q4H PRN Mild Pain (1-3) or Fever Calcium Carbonate 500 mg 12/10/24 09:00 12/11/24 10:13 Calcium/Vitamin D 500 Mg/5 Mcg (200 I.U.) Tablet PO 500 mg QAM JEISON Administration Cyclosporine 1 drop 12/09/24 23:35 12/11/24 10:23 Cyclosporine 0.4 Ml Ophth Solution EACH EYE Not Given Q12HR JEISON Piperacillin/Tazobactam/Dextrose 3.375 gm in 50 mls @ 100 mls/hr 12/09/24 18:00 12/11/24 13:04 Zosyn 3.375 Gm/Ns 50 Ml IVPB 100 mls/hr Q6H JEISON Administration Ondansetron HCl 4 mg 12/09/24 17:07 Ondansetron Inj 4 Mg/2 Ml Vial IV PUSH Q4H PRN Nausea Pantoprazole Sodium 40 mg 12/10/24 09:00 12/11/24 10:12 Pantoprazole 40 Mg Tablet PO 40 mg Q12HR JEISON Administration Polyethylene Glycol 17 gm 12/10/24 09:00 12/11/24 10:14 Polyethylene Glycol 3350 17 Gm Powd.Pack PO Not Given DAILY JEISON Potassium Chloride 20 meq 12/10/24 09:00 12/11/24 10:12 Potassium Chloride 20 Meq Er Tablet PO 20 meq BID JEISON Administration Psyllium Hydrophilic Mucilloid 1 packet 12/10/24 09:00 12/11/24 10:14 Psyllium Powder Packet PO Not Given DAILY JEISON Tramadol HCl 50 mg 12/09/24 23:34 12/10/24 00:16 Tramadol Hcl (*Crx) 50 Mg Tablet PO 50 mg Q8H PRN Administration pain 4-6 Radiology Results: ITS Impressions Chest/Abdomen/Pelvis CT 12/09/24 16:19 IMPRESSION: 1. Bone lesions, consistent with metastatic disease. Consider CT-guided biopsy of the right ilium. 2. Left lung nodules and left hilar and mediastinal lymphadenopathy, which may be infection or metastatic disease. 3. Left-sided pyelonephritis. 4. Liver masses measuring up to 2.1 cm suspicious for abscesses. 5. 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 No drainable fluid. Labs Labs: Laboratory Results - last 24 hr 12/11/24 07:02 WBC 8.4 RBC 3.40 L Hgb 9.3 L Hct 28.5 L MCV 83.8 MCH 27.4 MCHC 32.6 RDW 20.5 H Plt Count 361 MPV 10.4 Sodium 132 L Potassium 3.4 Chloride 99 Carbon Dioxide 27 Anion Gap 6 BUN 9 Creatinine 1.03 H Estim Creat Clear Calc 42 Estimated GFR 53 L Glucose 81 Calcium 9.0 Total Bilirubin 0.8 AST 40 H ALT 44 H Alkaline Phosphatase 146 H Total Protein 6.0 L Albumin 2.7 L Quality VTE Prophylaxis VTE prophylaxis: mechanical ordered Hospitalist [facility] Advance Care Plan I have confirmed that the patient's Advanced Care Plan is present, code status is documented, or surrogate decision maker is listed in patient medical record.: Yes Medication Reconciliation I have utilized all available resources to obtain, update and review the patients current medications (includes all prescriptions, OTC, herbals, cannabis, and nutritional supplements).: Yes
[2024-12-11 14:00] VITALS: BP 112/40; PULSE 75; RESP 17; TEMP 36.3; O2SAT 100
--- NOTE | 2024-12-11 20:33 | WPDGIPROGNO ---
Progress Note: A&P Assessment and Plan (1) UTI (urinary tract infection): Code(s): N39.0 - Urinary tract infection, site not specified Status: Acute Assessment and Plan: Urine culture results reviewed. E coli resistant to Piperacillin, Susceptible to Ceftriaxone. Suggest changing regime to Ceftriaxone 2 g IV daily. Subjective Date/time seen: 12/11/24 20:33 Objective Data Vital Signs Vital Signs: Vital Signs - 24 hr 12/10/24 20:40 12/10/24 21:30 12/11/24 05:17 Temperature 98.4 F 98.2 F Pulse Rate 88 75 Respiratory Rate 18 16 Blood Pressure 124/63 106/49 L Pulse Oximetry 100 99 Oxygen Delivery Room Air 12/11/24 14:00 Temperature 97.4 F L Pulse Rate 75 Respiratory Rate 17 Blood Pressure 112/40 L Pulse Oximetry 100 Oxygen Delivery Intake/Output Intake/Output: Intake & Output 12/08/24 12/09/24 12/10/24 12/11/24 23:59 23:59 23:59 23:59 Intake Total 1050 978.3 2030 Balance 1050 978.3 2030 Meds/Results Medications: Active Medications Generic Name Dose Route Start Last Admin Trade Name Freq PRN Reason Stop Dose Admin Acetaminophen 650 mg 12/09/24 17:07 Acetaminophen 325 Mg Tablet PO Q4H PRN Mild Pain (1-3) or Fever Calcium Carbonate 500 mg 12/10/24 09:00 12/11/24 10:13 Calcium/Vitamin D 500 Mg/5 Mcg (200 I.U.) Tablet PO 500 mg QAM JEISON Administration Cyclosporine 1 drop 12/09/24 23:35 12/11/24 10:23 Cyclosporine 0.4 Ml Ophth Solution EACH EYE Not Given Q12HR JEISON Piperacillin/Tazobactam/Dextrose 3.375 gm in 50 mls @ 100 mls/hr 12/09/24 18:00 12/11/24 19:15 Zosyn 3.375 Gm/Ns 50 Ml IVPB Infused Q6H JEISON Infusion Ondansetron HCl 4 mg 12/09/24 17:07 Ondansetron Inj 4 Mg/2 Ml Vial IV PUSH Q4H PRN Nausea Pantoprazole Sodium 40 mg 12/10/24 09:00 12/11/24 10:12 Pantoprazole 40 Mg Tablet PO 40 mg Q12HR JEISON Administration Polyethylene Glycol 17 gm 12/10/24 09:00 12/11/24 10:14 Polyethylene Glycol 3350 17 Gm Powd.Pack PO Not Given DAILY JEISON Potassium Chloride 20 meq 12/10/24 09:00 12/11/24 18:47 Potassium Chloride 20 Meq Er Tablet PO 20 meq BID JEISON Administration Psyllium Hydrophilic Mucilloid 1 packet 12/10/24 09:00 12/11/24 10:14 Psyllium Powder Packet PO Not Given DAILY JEISON Tramadol HCl 50 mg 12/09/24 23:34 12/10/24 00:16 Tramadol Hcl (*Crx) 50 Mg Tablet PO 50 mg Q8H PRN Administration pain 4-6 Radiology Results: ITS Impressions Chest/Abdomen/Pelvis CT 12/09/24 16:19 IMPRESSION: 1. Bone lesions, consistent with metastatic disease. Consider CT-guided biopsy of the right ilium. 2. Left lung nodules and left hilar and mediastinal lymphadenopathy, which may be infection or metastatic disease. 3. Left-sided pyelonephritis. 4. Liver masses measuring up to 2.1 cm suspicious for abscesses. 5. 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 No drainable fluid. Pelvis MRI 12/11/24 18:02 IMPRESSION: 1. Segmental wall thickening the sigmoid colon with surrounding inflammatory stranding which could be due to focal colitis, diverticulitis or potentially colon cancer. 2. Tract of soft tissue density extending between this segment of colon, the region of the cervix and adjacent loop of small bowel consistent with an enterocolic and/or colovaginal fistula. 3. 3 enhancing bone lesions in the pelvis suspicious for metastatic disease. 4. A few T2 hyperintense lesions in the inferior right hepatic lobe with appearance on earlier MRI of the abdomen suspicious for hepatic abscesses. 5. Moderate left hydroureteronephrosis with tapering of the ureter at the transition point located near the suspected fistula and suggesting stricture related to the surrounding inflammation. : Labs Labs: Laboratory Results - last 24 hr 12/11/24 07:02 WBC 8.4 RBC 3.40 L Hgb 9.3 L Hct 28.5 L MCV 83.8 MCH 27.4 MCHC 32.6 RDW 20.5 H Plt Count 361 MPV 10.4 Sodium 132 L Potassium 3.4 Chloride 99 Carbon Dioxide 27 Anion Gap 6 BUN 9 Creatinine 1.03 H Estim Creat Clear Calc 42 Estimated GFR 53 L Glucose 81 Calcium 9.0 Total Bilirubin 0.8 AST 40 H ALT 44 H Alkaline Phosphatase 146 H Total Protein 6.0 L Albumin 2.7 L
[2024-12-11] MEDS: cycloSPORINE 0.4 ML OPHTH SOLUTION 1 DROP EACH EYE (21:18)
[2024-12-11] MEDS: traMADol HCL (*CRX) 50 MG TABLET PO (21:23)
[2024-12-11 22:00] VITALS: BP 104/59; PULSE 87; RESP 18; TEMP 37.4; O2SAT 100
[2024-12-12 06:00] VITALS: BP 122/56; PULSE 80; RESP 18; TEMP 36.7; O2SAT 100
--- NOTE | 2024-12-12 07:14 | WPDGIPROGNO ---
Progress Note: A&P Assessment and Plan (1) Diverticulitis: Code(s): K57.92 - Diverticulitis of intestine, part unspecified, without perforation or abscess without bleeding Status: Acute Assessment and Plan: The patient's diverticulitis appears complicated by a suspected colovesical fistula, although definitive imaging confirmation is pending. This suspicion is supported by the patient's clinical presentation, including pneumaturia and the passage of brownish material in her urine. Yesterday's urine culture grew Escherichia coli resistant to piperacillin but sensitive to ceftriaxone. The antibiotic regimen was accordingly modified last night. The patient has been counseled regarding the potential need for a diverting colostomy as part of her management plan. This option should be discussed between the patient and the surgical team. Conservative management will be continued for now, and the patient's clinical progress will be closely monitored. (2) Pneumaturia: Code(s): R39.89 - Other symptoms and signs involving the genitourinary system Status: Acute Subjective Date/time seen: 12/12/24 07:14 Interval history: Patient continues to have pneumaturia and the passage of small amount of brownish material in her urine. No fever or abdominal pain. Exam Narrative: Unchanged from yesterday. Objective Data Vital Signs Vital Signs: Vital Signs - 24 hr 12/11/24 14:00 12/11/24 20:00 12/11/24 22:00 Temperature 97.4 F L 99.4 F Pulse Rate 75 87 Respiratory Rate 17 18 Blood Pressure 112/40 L 104/59 L Pulse Oximetry 100 100 Oxygen Delivery Room Air 12/12/24 06:00 Temperature 98.1 F Pulse Rate 80 Respiratory Rate 18 Blood Pressure 122/56 L Pulse Oximetry 100 Oxygen Delivery Intake/Output Intake/Output: Intake & Output 12/09/24 12/10/24 12/11/24 12/12/24 23:59 23:59 23:59 23:59 Intake Total 1050 978.3 2030 100 Balance 1050 978.3 2030 100 Meds/Results Medications: Active Medications Generic Name Dose Route Start Last Admin Trade Name Freq PRN Reason Stop Dose Admin Acetaminophen 650 mg 12/09/24 17:07 Acetaminophen 325 Mg Tablet PO Q4H PRN Mild Pain (1-3) or Fever Calcium Carbonate 500 mg 12/10/24 09:00 12/11/24 10:13 Calcium/Vitamin D 500 Mg/5 Mcg (200 I.U.) Tablet PO 500 mg QAM JEISON Administration Cyclosporine 1 drop 12/09/24 23:35 12/11/24 21:18 Cyclosporine 0.4 Ml Ophth Solution EACH EYE 1 drop Q12HR JEISON Administration Ceftriaxone Sodium 1 gm in 50 mls @ 100 mls/hr 12/11/24 21:00 12/11/24 21:19 Rocephin 1 Gm/Ns 50 Ml IVPB 100 mls/hr Q24H JEISON Administration Ondansetron HCl 4 mg 12/09/24 17:07 Ondansetron Inj 4 Mg/2 Ml Vial IV PUSH Q4H PRN Nausea Pantoprazole Sodium 40 mg 12/10/24 09:00 12/11/24 21:18 Pantoprazole 40 Mg Tablet PO 40 mg Q12HR JEISON Administration Polyethylene Glycol 17 gm 12/10/24 09:00 12/11/24 10:14 Polyethylene Glycol 3350 17 Gm Powd.Pack PO Not Given DAILY JEISON Potassium Chloride 20 meq 12/10/24 09:00 12/11/24 18:47 Potassium Chloride 20 Meq Er Tablet PO 20 meq BID JEISON Administration Psyllium Hydrophilic Mucilloid 1 packet 12/10/24 09:00 12/11/24 10:14 Psyllium Powder Packet PO Not Given DAILY JEISON Tramadol HCl 50 mg 12/09/24 23:34 12/11/24 21:23 Tramadol Hcl (*Crx) 50 Mg Tablet PO 50 mg Q8H PRN Administration pain 4-6 Radiology Results: ITS Impressions Chest/Abdomen/Pelvis CT 12/09/24 16:19 IMPRESSION: 1. Bone lesions, consistent with metastatic disease. Consider CT-guided biopsy of the right ilium. 2. Left lung nodules and left hilar and mediastinal lymphadenopathy, which may be infection or metastatic disease. 3. Left-sided pyelonephritis. 4. Liver masses measuring up to 2.1 cm suspicious for abscesses. 5. 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 No drainable fluid. Pelvis MRI 12/11/24 18:02 IMPRESSION: 1. Segmental wall thickening the sigmoid colon with surrounding inflammatory stranding which could be due to focal colitis, diverticulitis or potentially colon cancer. 2. Tract of soft tissue density extending between this segment of colon, the region of the cervix and adjacent loop of small bowel consistent with an enterocolic and/or colovaginal fistula. 3. 3 enhancing bone lesions in the pelvis suspicious for metastatic disease. 4. A few T2 hyperintense lesions in the inferior right hepatic lobe with appearance on earlier MRI of the abdomen suspicious for hepatic abscesses. 5. Moderate left hydroureteronephrosis with tapering of the ureter at the transition point located near the suspected fistula and suggesting stricture related to the surrounding inflammation. : Labs Labs: Laboratory Results - last 24 hr 12/11/24 07:02 WBC 8.4 RBC 3.40 L Hgb 9.3 L Hct 28.5 L MCV 83.8 MCH 27.4 MCHC 32.6 RDW 20.5 H Plt Count 361 MPV 10.4 Sodium 132 L Potassium 3.4 Chloride 99 Carbon Dioxide 27 Anion Gap 6 BUN 9 Creatinine 1.03 H Estim Creat Clear Calc 42 Estimated GFR 53 L Glucose 81 Calcium 9.0 Total Bilirubin 0.8 AST 40 H ALT 44 H Alkaline Phosphatase 146 H Total Protein 6.0 L Albumin 2.7 L
--- NOTE | 2024-12-12 08:12 | P.PNIM_ITS ---
Progress Note: A&P Assessment and Plan (1) Liver abscess: Code(s): K75.0 - Abscess of liver Status: Acute (2) Diverticulitis of sigmoid colon: Code(s): K57.32 - Diverticulitis of large intestine without perforation or abscess without bleeding Status: Acute (3) Pyelonephritis of left kidney: Code(s): N12 - Tubulo-interstitial nephritis, not specified as acute or chronic Status: Acute (4) Weight loss: Code(s): R63.4 - Abnormal weight loss Status: Acute (5) Nodule of left lung: Code(s): R91.1 - Solitary pulmonary nodule Status: Acute (6) Bone lesion: Code(s): M89.9 - Disorder of bone, unspecified Status: Acute (7) Dehydration: Code(s): E86.0 - Dehydration Status: Acute Plan Record review indicates the patient was seen by Dr. Vargas on November 23, 2024 for abdominal pain. She was advised to finish the prescribed antibiotics of for diverticulitis and follow-up with GI for colonoscopy and follow-up with him in [address] scan abdomen/pelvis on 11/16/2024:which showed Nonobstructing bilateral renal calculi, as above. Mild left hydronephrosis could reflect recently passed stone. No ureteral stones seen currently. Findings compatible with sigmoid diverticulitis with associated pericolonic phlegmon and small bubbles of local free air. Phlegmon is also inseparable from the vaginal cuff. Correlate clinically for any clinical signs of fistulous connection to the vaginal cuff. Ill-defined hypodense hepatic mass like lesions measuring 3.3 cm and 1.5 cm in size, as detailed above. These are indeterminate. Pre and postcontrast CT or MR recommended for for further evaluation. Grouped nodular opacities left lung base, suggestive of infectious/inflammatory process and/or small impacted airways. Follow-up exam in 2-3 months advised given size of the nodules. CT Scan 12/09/2024:1. Bone lesions, consistent with metastatic disease. Consider CT-guided biopsy of the right ilium. 2. Left lung nodules and left hilar and mediastinal lymphadenopathy, which may be infection or metastatic disease. 3. Left-sided pyelonephritis. 4. Liver masses measuring up to 2.1 cm suspicious for abscesses. 5. 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 No drainable fluid. Abdomen MRI : IMPRESSION: 1. Enhancing bone lesions in the pelvis suspicious for metastatic disease. Could consider CT-guided bone biopsy. 2. Mild to moderate left hydroureteronephrosis with transition point at the distal left ureter suggesting stricture related to adjacent inflammatory changes which could be related to diverticulitis. 3. Multiple complex cystic lesions in the liver without evident solid enhancing soft tissue components to suggest neoplasm without evident correlate on the localizer images for an earlier lumbar spine MR dated 01/12/2024. This could represent hepatic abscesses related to the previously noted diverticulitis. She saw Cammy Dennis APRN [facility] for vaginal discharge on 11/16 and performed vaginal culture. Patient has the ongoing generalized abdominal pain, early satiety and approximately 50 lb weight loss and chronic back pain. Surgeries consulted advised to continues serial exams and IV antibiotics. Surgeon reviewed CT reviewed with the radiologist and no drainable fluid collection, patient is started with clear liquid diet and advanced to low-fiber as tolerated. GI is following and due to the concerns of metastatic disease and oncology consulted and appreciate recommendations. Patient underwent CT guided biopsy of lytic lesion in right fifth rib. Pending Oncology eval.Yesterday's urine culture grew Escherichia coli resistant to piperacillin but sensitive to ceftriaxone. The antibiotic regimen was accordingly modified last night. Subjective Date/time seen: 12/12/24 08:12 Interval history: Patient underwent CT guided biopsy of lytic lesion in right fifth rib. Pending Oncology eval.Yesterday's urine culture grew Escherichia coli resistant to piperacillin but sensitive to ceftriaxone. The antibiotic regimen was accordingly modified last night. Review of Systems Review of Systems: 12 systems were reviewed and are negativ e except for as per HPI. Exam Narrative: General: Nontoxic-appearing female sitting up at the side of the bed in no acute distress. Weight: 69 kg. BMI: 20.7. HEENT: PERRL, EOMI. Sclera anicteric. Tacky mucous membranes. Neck: Supple. Respiratory: Lungs are clear to auscultation bilaterally. Cardiovascular: Regular rate and rhythm with S1-S2. Gastrointestinal: Abdomen is soft and nondistended with positive bowel sounds. She is tender to palpation throughout the lower abdomen, more so in the left lower quadrant and somewhat in the suprapubic region. Left-sided CVA tenderness. Skin: Warm and dry. Extremities: No cyanosis, clubbing, or edema. Radial and pedal pulses intact. Neurological: Alert. Cranial nerves 2-12 are grossly intact. No gross focal deficits to casual conversation. Psychiatric: Pleasant and cooperative with normal mood and affect. Judgment a nd insight intact. Objective Data Vital Signs Vital Signs: Vital Signs - 24 hr 12/11/24 14:00 12/11/24 20:00 12/11/24 22:00 Temperature 97.4 F L 99.4 F Pulse Rate 75 87 Respiratory Rate 17 18 Blood Pressure 112/40 L 104/59 L Pulse Oximetry 100 100 Oxygen Delivery Room Air 12/12/24 06:00 Temperature 98.1 F Pulse Rate 80 Respiratory Rate 18 Blood Pressure 122/56 L Pulse Oximetry 100 Oxygen Delivery Intake/Output Intake/Output: Intake & Output 12/09/24 12/10/24 12/11/24 12/12/24 23:59 23:59 23:59 23:59 Intake Total 1050 978.3 2030 100 Balance 1050 978.3 2030 100 Meds/Results Medications: Active Medications Generic Name Dose Route Start Last Admin Trade Name Freq PRN Reason Stop Dose Admin Acetaminophen 650 mg 12/09/24 17:07 Acetaminophen 325 Mg Tablet PO Q4H PRN Mild Pain (1-3) or Fever Calcium Carbonate 500 mg 12/10/24 09:00 12/11/24 10:13 Calcium/Vitamin D 500 Mg/5 Mcg (200 I.U.) Tablet PO 500 mg QAM JEISON Administration Cyclosporine 1 drop 12/09/24 23:35 12/11/24 21:18 Cyclosporine 0.4 Ml Ophth Solution EACH EYE 1 drop Q12HR JEISON Administration Ceftriaxone Sodium 1 gm in 50 mls @ 100 mls/hr 12/11/24 21:00 12/11/24 21:19 Rocephin 1 Gm/Ns 50 Ml IVPB 100 mls/hr Q24H JEISON Administration Ondansetron HCl 4 mg 12/09/24 17:07 Ondansetron Inj 4 Mg/2 Ml Vial IV PUSH Q4H PRN Nausea Pantoprazole Sodium 40 mg 12/10/24 09:00 12/11/24 21:18 Pantoprazole 40 Mg Tablet PO 40 mg Q12HR JEISON Administration Polyethylene Glycol 17 gm 12/10/24 09:00 12/11/24 10:14 Polyethylene Glycol 3350 17 Gm Powd.Pack PO Not Given DAILY JEISON Potassium Chloride 20 meq 12/10/24 09:00 12/11/24 18:47 Potassium Chloride 20 Meq Er Tablet PO 20 meq BID JEISON Administration Psyllium Hydrophilic Mucilloid 1 packet 12/10/24 09:00 12/11/24 10:14 Psyllium Powder Packet PO Not Given DAILY JEISON Tramadol HCl 50 mg 12/09/24 23:34 12/11/24 21:23 Tramadol Hcl (*Crx) 50 Mg Tablet PO 50 mg Q8H PRN Administration pain 4-6 Radiology Results: ITS Impressions Chest/Abdomen/Pelvis CT 12/09/24 16:19 IMPRESSION: 1. Bone lesions, consistent with metastatic disease. Consider CT-guided biopsy of the right ilium. 2. Left lung nodules and left hilar and mediastinal lymphadenopathy, which may be infection or metastatic disease. 3. Left-sided pyelonephritis. 4. Liver masses measuring up to 2.1 cm suspicious for abscesses. 5. 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 No drainable fluid. Pelvis MRI 12/11/24 18:02 IMPRESSION: 1. Segmental wall thickening the sigmoid colon with surrounding inflammatory stranding which could be due to focal colitis, diverticulitis or potentially colon cancer. 2. Tract of soft tissue density extending between this segment of colon, the region of the cervix and adjacent loop of small bowel consistent with an enterocolic and/or colovaginal fistula. 3. 3 enhancing bone lesions in the pelvis suspicious for metastatic disease. 4. A few T2 hyperintense lesions in the inferior right hepatic lobe with appearance on earlier MRI of the abdomen suspicious for hepatic abscesses. 5. Moderate left hydroureteronephrosis with tapering of the ureter at the transition point located near the suspected fistula and suggesting stricture related to the surrounding inflammation. : Labs Labs: Laboratory Results - last 24 hr 12/11/24 07:02 Sodium 132 L Potassium 3.4 Chloride 99 Carbon Dioxide 27 Anion Gap 6 BUN 9 Creatinine 1.03 H Estim Creat Clear Calc 42 Estimated GFR 53 L Glucose 81 Calcium 9.0 Total Bilirubin 0.8 AST 40 H ALT 44 H Alkaline Phosphatase 146 H Total Protein 6.0 L Albumin 2.7 L Quality VTE Prophylaxis VTE prophylaxis: mechanical ordered Hospitalist MIPS Advance Care Plan I have confirmed that the patient's Advanced Care Plan is present, code status is documented, or surrogate decision maker is listed in patient medical record.: Yes Medication Reconciliation I have utilized all available resources to obtain, update and review the patients current medications (includes all prescriptions, OTC, herbals, cannabis, and nutritional supplements).: Yes
[2024-12-12] MEDS: CALCIUM/VITAMIN D 500 MG/5 MCG (200 I.U.) TABLET PO (08:30)
[2024-12-12] MEDS: POTASSIUM CHLORIDE 20 MEQ ER TABLET PO ×2 (08:30→16:46)
[2024-12-12] MEDS: PANTOPRAZOLE 40 MG TABLET PO ×2 (08:30→21:50)
[2024-12-12] MEDS: traMADol HCL (*CRX) 50 MG TABLET PO ×2 (08:34→18:18)
[2024-12-12 09:20] LABS: Reticulocyte Hemoglobin Conten 28.3 pg (28.2-36.6); Reticulocyte Percent 1.54 % (0.7-4.3); Reticulocytes Absolute 0.05 10^6/uL (0.02-0.10)
[2024-12-12 09:38] LABS: Lactate Dehydrogenase 185 U/L (120-246)
[2024-12-12 09:45] LABS: Transferrin 121 mg/dL (206-381)
[2024-12-12 09:54] LABS: Iron 29 ug/dL (37-170)
[2024-12-12 10:04] LABS: Percent Iron Saturation 18 % (20-50)
[2024-12-12 10:44] LABS: Folic Acid 13.5 ng/mL (2.76->20)
[2024-12-12 13:22] VITALS: BMI 27.3
[2024-12-12 14:00] VITALS: BP 114/58; PULSE 89; RESP 18; TEMP 36.3; O2SAT 100
--- NOTE | 2024-12-12 14:08 | PM.PNGS ---
Progress Note: A&P Assessment and Plan (1) Diverticulitis of intestine with abscess: Code(s): K57.80 - Diverticulitis of intestine, part unspecified, with perforation and abscess without bleeding Status: Acute Assessment and Plan: exam benign, cont IV abx, low fiber diet (2) Metastasis to bone: Code(s): C79.51 - Secondary malignant neoplasm of bone Status: Acute Assessment and Plan: bone bx today Subjective Subjective Date/Time Seen: 12/12/24 14:08 Interval history: getting bone bx today, no abd pain, adamaris low fiber diet Review of Systems Review of Systems: All systems reviewed & are unremarkable except as noted in HPI and below Exam Const: General: cooperative, comfortable and no acute distress Resp: Auscultation: clear to auscultation bilaterally Cardio: Rate: regular rate Rhythm: regular rhythm GI: Inspection: normal to inspection and non-distended GI Palp: No abdominal tenderness and Yes Soft to palpation Objective Data Vital Signs Vital Signs: Vital Signs - 24 hr 12/11/24 20:00 12/11/24 22:00 12/12/24 06:00 Temperature 37.4 C 36.7 C Pulse Rate 87 80 Respiratory Rate 18 18 Blood Pressure 104/59 L 122/56 L Pulse Oximetry 100 100 Oxygen Delivery Room Air 12/12/24 08:00 Temperature Pulse Rate Respiratory Rate Blood Pressure Pulse Oximetry Oxygen Delivery Room Air Intake/Output Intake/Output: Intake & Output 12/09/24 12/10/24 12/11/24 12/12/24 23:59 23:59 23:59 23:59 Intake Total 1050 978.3 2030 100 Balance 1050 978.3 2030 100 Meds/Results Medications: Active Medications Generic Name Dose Route Start Last Admin Trade Name Freq PRN Reason Stop Dose Admin Acetaminophen 650 mg 12/09/24 17:07 Acetaminophen 325 Mg Tablet PO Q4H PRN Mild Pain (1-3) or Fever Calcium Carbonate 500 mg 12/10/24 09:00 12/12/24 08:30 Calcium/Vitamin D 500 Mg/5 Mcg (200 I.U.) Tablet PO 500 mg QAM JEISON Administration Cyclosporine 1 drop 12/09/24 23:35 12/12/24 08:37 Cyclosporine 0.4 Ml Ophth Solution EACH EYE Not Given Q12HR JEISON Ceftriaxone Sodium 1 gm in 50 mls @ 100 mls/hr 12/11/24 21:00 12/11/24 21:19 Rocephin 1 Gm/Ns 50 Ml IVPB 12/17/24 21:29 100 mls/hr Q24H JEISON Administration Ondansetron HCl 4 mg 12/09/24 17:07 Ondansetron Inj 4 Mg/2 Ml Vial IV PUSH Q4H PRN Nausea Pantoprazole Sodium 40 mg 12/10/24 09:00 12/12/24 08:30 Pantoprazole 40 Mg Tablet PO 40 mg Q12HR JEISON Administration Polyethylene Glycol 17 gm 12/10/24 09:00 12/12/24 08:40 Polyethylene Glycol 3350 17 Gm Powd.Pack PO Not Given DAILY JEISON Potassium Chloride 20 meq 12/10/24 09:00 12/12/24 08:30 Potassium Chloride 20 Meq Er Tablet PO 20 meq BID JEISON Administration Psyllium Hydrophilic Mucilloid 1 packet 12/10/24 09:00 12/12/24 08:40 Psyllium Powder Packet PO Not Given DAILY JEISON Tramadol HCl 50 mg 12/09/24 23:34 12/12/24 08:34 Tramadol Hcl (*Crx) 50 Mg Tablet PO 50 mg Q8H PRN Administration pain 4-6 Radiology Results: ITS Impressions Chest/Abdomen/Pelvis CT 12/09/24 16:19 IMPRESSION: 1. Bone lesions, consistent with metastatic disease. Consider CT-guided biopsy of the right ilium. 2. Left lung nodules and left hilar and mediastinal lymphadenopathy, which may be infection or metastatic disease. 3. Left-sided pyelonephritis. 4. Liver masses measuring up to 2.1 cm suspicious for abscesses. 5. 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 No drainable fluid. ADDENDUM: 12/12/24 1309 There is a nondisplaced pathologic fracture of the left acromion. Pelvis MRI 12/11/24 18:02 IMPRESSION: 1. Segmental wall thickening the sigmoid colon with surrounding inflammatory stranding which could be due to focal colitis, diverticulitis or potentially colon cancer. 2. Tract of soft tissue density extending between this segment of colon, the region of the cervix and adjacent loop of small bowel consistent with an enterocolic and/or colovaginal fistula. 3. 3 enhancing bone lesions in the pelvis suspicious for metastatic disease. 4. A few T2 hyperintense lesions in the inferior right hepatic lobe with appearance on earlier MRI of the abdomen suspicious for hepatic abscesses. 5. Moderate left hydroureteronephrosis with tapering of the ureter at the transition point located near the suspected fistula and suggesting stricture related to the surrounding inflammation. : Labs Labs: Laboratory Results - last 24 hr 12/12/24 08:59 Absolute Retic 0.05 Percent Retic 1.54 Immature Retic Fraction 34.0 H Retic Hgb Content 28.3 Iron 29 L TIBC 161 L % Saturation 18 L Transferrin 121 L Ferritin 365.00 H Lactate Dehydrogenase 185 Vitamin B12 314.0 Folate 13.5
[2024-12-12 17:56] LABS: IFOB Positive Control Positive; Immunochemical Fecal Occult Bl Negative (N)
--- NOTE | 2024-12-12 18:57 | P.CONONC_ITS ---
Assessment and Plan Assessment and plan (1) Metastasis to bone: Code(s): C79.51 - Secondary malignant neoplasm of bone Status: Acute Assessment and Plan: Metastatic disease. CT scan showed bone lesions consistent with metastatic disease along with left lung nodule, hilar lymphadenopathy and mediastinal lymphadenopathy along with liver masses suspicious for abscesses. There was chronic sigmoid diverticulitis with web the stool is containing gas between portion of the sigmoid colon. Last colonoscopy was performed in May of 2022. Patient had CT-guided biopsy of the right 5th rib and pathology is pending. I will order CEA level today. Patient may need PET scan after the discharge. I provided her my office information for follow-up. Based on the pathology will decide the management. I have answered all the questions to patient's satisfaction. Plan Anemia. Labs showed hemoglobin of 9.3. Iron study showed slightly low iron and iron saturation. Vitamin B12 level was slightly low as well. I will check methylmalonic acid level and soluble transferrin receptor. We will start iron replacement. HPI Data of Consult Date/Time: 12/12/24 18:57 Requesting Physician: Chris Weiss MD Primary Care Provider: Per Samson MD Consult Narrative Narrative: Frannie Palma is a 69 year old female with history of gastroesophageal reflux disease, atrial tachycardia status post cardiac ablation and cardiomyopathy along with hypertension and hyperlipidemia came into the hospital for the evaluation of abdominal discomfort. She has no previous history of malignancy. Patient has lost 50 lb weight unintentionally. She has been complaining of chronic back and the right upper shoulder pain. Denies any melena hematochezia. CT chest abdomen pelvis done on December 09 showed bone lesions consistent with metastatic disease along with left lung nodule, left hilar and mediastinal lymphadenopathy and multiple liver masses measuring up to 2.1 cm suspicious for abscess. There was also chronic sigmoid diverticulitis. Patient had CT-guided biopsy of the lytic lesion of the right 5th rib performed on December 09. MRI of the pelvis showed segmental wall thickening of the sigmoid colon could be diverticulitis or potentially colon cancer. Patient had last colonoscopy done on May 2022 that showed diverticulosis with small colon polyps. There is a concern of suspected colovesical fistula. 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46 no issue since with an EF of 69% Esophageal web Diverticulitis Vaginal fistula Insomnia Anxiety Hypertension Neuropathy Rosacea Migraine Herniated disc Headache Depression Osteoporosis Surgical History Surgical History History of lumbar surgery (06/2019) History of left salpingo-oophorectomy for benign cyst History of colonoscopy with polypectomy History of cervical spinal surgery History of cardiac radiofrequency ablation (2008) Ablation x3 for atrial tachycardia and right ventricle outflow tract tachycardia done at [facility] History of nasal surgery History of foot surgery (2015) repair of torn ligament in right foot History of knee replacement procedure of right knee (09/2014) revision-poly exchange 06/11/2020 History of hemorrhoidectomy (10/2012) History of (04/2001) Family History Family History Father Cerebrovascular accident Family history of heart disease in male family member before age 55 Hypertension Family history of lung cancer Sibling Family history of heart disease in male family member before age 55 Mother Cancer Other Family history of cardiovascular disease Social History Social History Social History: Surrogate medical decision maker: Dio Andrade, son. Code status: Full code. Smoking packs per day: 0.5 Smoking cigarettes per day: 10.0 Years smoked: 50 Smoking pack-years: 25.00 Smoking status: Current every day smoker Tobacco type: cigarettes Second hand tobacco smoke exposure: Yes Alcohol intake: never Substance use: never Substance use type: does not use Do You Feel Safe in your Home?: Yes Lack of Transportation: No Lack of Food: Never True Current Housing: I Have Housing Concerned About Future Housing: No Difficulty Paying Gas/Electric Bills: No Difficulty Paying for Meds: No Currently Unemployed: No Education: Decline to Answer Difficulty w/ Childcare or Family Care: No Living arrangements: with family Additional living arrangements comments: . Spiritual care concerns: No Meds Home Medications and Allergies Home Medications ?Medication ?Instructions ?Recorded ?Confirmed ?Type [id number]-[id number] acid 0.4 1 tablet PO DAILY 01/12/20 12/09/24 History mg-lycopene 300 mcg-lutein 250 mcg tablet (Centrum Silver) cyclosporine 0.05 % eye drops in a 1 drp EACH EYE Q12H 06/13/21 12/09/24 History dropperette (Restasis) mineral oil 15 ml PO DAILY 05/19/22 12/09/24 History polyethylene glycol 3350 17 gram 17 g PO DAILY 05/19/22 12/09/24 History oral powder packet (Miralax) bumetanide 1 mg tablet 2 mg PO DAILY 12/30/23 12/09/24 History metolazone 2.5 mg tablet 2.5 mg PO EVERY OTHER DAY 12/30/23 12/09/24 History omeprazole 40 mg capsule,delayed See Rx Instructions .Route 10/17/24 12/09/24 Rx release .COMPLEX #180 caps atorvastatin 20 mg tablet See Rx Instructions .Route 11/03/24 12/09/24 Rx .COMPLEX #90 tabs calcium 600 mg (as carbonate)-vit 1 tablet PO DAILY 11/16/24 12/09/24 History D3 20 mcg (800 unit) chewable tablet (Caltrate plus D) tramadol 50 mg tablet 50 mg PO Q8H PRN pain #90 tabs 11/29/24 12/09/24 Rx tizanidine 2 mg tablet 2 mg PO TID PRN muscle spasticity 12/08/24 12/09/24 Rx #30 tabs ciprofloxacin HCl 500 mg tablet 500 mg PO Q12H #20 tabs 12/09/24 12/09/24 Rx metronidazole 500 mg tablet 500 mg PO Q12H #20 tabs 12/09/24 12/09/24 Rx potassium chloride 20 mEq 20 meq PO BID 12/09/24 12/09/24 History tablet,extended release psyllium husk 3.4 gram/5.4 gram 1 tbsp PO DAILY 12/09/24 12/09/24 History oral powder (Metamucil) Allergies Allergy/AdvReac Type Severity Reaction Status Date / Time codeine Allergy Intermediate Hives Verified 12/09/24 10:25 Vital Signs Vital Signs - 24 hr 12/11/24 20:00 12/11/24 22:00 12/12/24 06:00 Temperature 37.4 C 36.7 C Pulse Rate 87 80 Respiratory Rate 18 18 Blood Pressure 104/59 L 122/56 L Pulse Oximetry 100 100 Oxygen Delivery Room Air 12/12/24 08:00 12/12/24 14:00 Temperature 36.3 C L Pulse Rate 89 Respiratory Rate 18 Blood Pressure 114/58 L Pulse Oximetry 100 Oxygen Delivery Room Air Exam 2 Narrative: Lungs are clear to auscultation bilaterally Cardiovascular regular rate rhythm no murmurs Abdomen soft nontender nondistended bowel sounds Are positive Extremities no edema Results Labs 12/11/24 07:02 12/11/24 07:02
[2024-12-12 22:00] VITALS: BP 118/62; PULSE 89; RESP 16; TEMP 36.6; O2SAT 100
[2024-12-13 06:00] VITALS: BP 129/59; PULSE 91; RESP 16; TEMP 36.4; O2SAT 99
--- NOTE | 2024-12-13 07:20 | P.CDI_ITS ---
CDI Query Clarification Request BMI: 27.4 Nutritional Diagnostic Statement: Please refer to the comprehensive nutrition assessment for further information. If you agree with diagnosis of Severe protein calorie malnutrition related to altered GI function, loss of appetite as evidenced by intakes <75% needs >1 month; weight loss 19%/4 months and 29%/9 months. Please specify severity if known: * Mild * Moderate * Severe * Other/Unknown <Noa Garcia RN - Last Filed: 12/13/24 07:20> Clarified Diagnosis Clarified Diagnosis: * Severe <Merrick Green MD - Last Filed: 12/13/24 08:33>
--- NOTE | 2024-12-13 07:39 | P.PNGI_ITS ---
Progress Note: A&P Assessment and Plan (1) Diverticulitis: Code(s): K57.92 - Diverticulitis of intestine, part unspecified, without perforation or abscess without bleeding Status: Acute Assessment and Plan: The patient's primary concern is the possibility of metastatic disease, which is currently under investigation. While an invasive colon cancer within the context of her current diverticulitis-like presentation cannot be ruled out, it is considered unlikely given her prior normal colonoscopy 3 years ago, which only revealed diverticulosis. The patient is currently on the second day of ceftriaxone therapy after her urine culture demonstrated the presence of ESBL- producing E. coli, necessitating the discontinuation of Zosyn. The surgical team is following her as well. Subjective Date/time seen: 12/13/24 07:39 Interval history: Patient had a biopsy of the right 5th rib yesterday, CT-guided. Results are pending. Oncology is actively following her, and a PET scan is planned probably after discharge. From a GI standpoint, the patient continues to pass air scant amount of brownish material In her urine. This is indicative of a colovesical fistula. Exam Narrative: Unchanged from yes Objective Data Vital Signs Vital Signs: Vital Signs - 24 hr 12/12/24 08:00 12/12/24 14:00 12/12/24 20:00 Temperature 97.3 F L Pulse Rate 89 Respiratory Rate 18 Blood Pressure 114/58 L Pulse Oximetry 100 Oxygen Delivery Room Air Room Air 12/12/24 22:00 12/13/24 06:00 Temperature 97.8 F 97.6 F Pulse Rate 89 91 Respiratory Rate 16 16 Blood Pressure 118/62 129/59 L Pulse Oximetry 100 99 Oxygen Delivery Intake/Output Intake/Output: Intake & Output 12/10/24 12/11/24 12/12/24 12/13/24 23:59 23:59 23:59 23:59 Intake Total 978.3 2080 1450 200 Balance 978.3 2080 1450 200 Meds/Results Medications: Active Medications Generic Name Dose Route Start Last Admin Trade Name Freq PRN Reason Stop Dose Admin Acetaminophen 650 mg 12/09/24 17:07 Acetaminophen 325 Mg Tablet PO Q4H PRN Mild Pain (1-3) or Fever Calcium Carbonate 500 mg 12/10/24 09:00 12/12/24 08:30 Calcium/Vitamin D 500 Mg/5 Mcg (200 I.U.) Tablet PO 500 mg QAM JEISON Administration Cyclosporine 1 drop 12/09/24 23:35 12/12/24 21:50 Cyclosporine 0.4 Ml Ophth Solution EACH EYE Not Given Q12HR JEISON Ferrous Sulfate 142 mg 12/13/24 08:00 Ferrous Sulfate Dried 142 Mg Tabcr PO BIDWM JEISON Ceftriaxone Sodium 1 gm in 50 mls @ 100 mls/hr 12/11/24 21:00 12/12/24 22:20 Rocephin 1 Gm/Ns 50 Ml IVPB 12/17/24 21:29 Infused Q24H JEISON Infusion Ondansetron HCl 4 mg 12/09/24 17:07 Ondansetron Inj 4 Mg/2 Ml Vial IV PUSH Q4H PRN Nausea Pantoprazole Sodium 40 mg 12/10/24 09:00 12/12/24 21:50 Pantoprazole 40 Mg Tablet PO 40 mg Q12HR JEISON Administration Polyethylene Glycol 17 gm 12/10/24 09:00 12/12/24 08:40 Polyethylene Glycol 3350 17 Gm Powd.Pack PO Not Given DAILY [facility] Potassium Chloride 20 meq 12/10/24 09:00 12/12/24 16:46 Potassium Chloride 20 Meq Er Tablet PO 20 meq BID JEISON Administration Psyllium Hydrophilic Mucilloid 1 packet 12/10/24 09:00 12/12/24 08:40 Psyllium Powder Packet PO Not Given DAILY JEISON Tramadol HCl 50 mg 12/09/24 23:34 12/12/24 18:18 Tramadol Hcl (*Crx) 50 Mg Tablet PO 50 mg Q8H PRN Administration pain 4-6 Radiology Results: ITS Impressions Chest/Abdomen/Pelvis CT 12/09/24 16:19 IMPRESSION: 1. Bone lesions, consistent with metastatic disease. Consider CT-guided biopsy of the right ilium. 2. Left lung nodules and left hilar and mediastinal lymphadenopathy, which may be infection or metastatic disease. 3. Left-sided pyelonephritis. 4. Liver masses measuring up to 2.1 cm suspicious for abscesses. 5. 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 No drainable fluid. ADDENDUM: 12/12/24 1309 There is a nondisplaced pathologic fracture of the left acromion. ADDENDUM: 12/12/24 1422 There is a pathologic fracture of C7 spinous process. Pelvis MRI 12/11/24 18:02 IMPRESSION: 1. Segmental wall thickening the sigmoid colon with surrounding inflammatory stranding which could be due to focal colitis, diverticulitis or potentially colon cancer. 2. Tract of soft tissue density extending between this segment of colon, the region of the cervix and adjacent loop of small bowel consistent with an enterocolic and/or colovaginal fistula. 3. 3 enhancing bone lesions in the pelvis suspicious for metastatic disease. 4. A few T2 hyperintense lesions in the inferior right hepatic lobe with appearance on earlier MRI of the abdomen suspicious for hepatic abscesses. 5. Moderate left hydroureteronephrosis with tapering of the ureter at the transition point located near the suspected fistula and suggesting stricture related to the surrounding inflammation. : Bone Biopsy CT 12/12/24 14:17 IMPRESSION: 1. CT-guided core needle biopsy of a lytic lesion in right fifth rib. Labs Labs: Laboratory Results - last 24 hr 12/12/24 12/12/24 08:59 17:16 Absolute Retic 0.05 Percent Retic 1.54 Immature Retic Fraction 34.0 H Retic Hgb Content 28.3 Iron 29 L TIBC 161 L % Saturation 18 L Transferrin 121 L Ferritin 365.00 H Lactate Dehydrogenase 185 Vitamin B12 314.0 Folate 13.5 Stl Occult Blood (IFOB) Negative
[2024-12-13] MEDS: traMADol HCL (*CRX) 50 MG TABLET PO ×2 (09:15→17:27)
[2024-12-13] MEDS: polyethylene glycoL 3350 17 GM POWD.PACK PO (09:16)
[2024-12-13] MEDS: PSYLLIUM POWDER PACKET 1 PACKET PO (09:16)
[2024-12-13] MEDS: POTASSIUM CHLORIDE 20 MEQ ER TABLET PO ×2 (09:18→16:55)
[2024-12-13] MEDS: PANTOPRAZOLE 40 MG TABLET PO ×2 (09:18→20:46)
[2024-12-13] MEDS: CALCIUM/VITAMIN D 500 MG/5 MCG (200 I.U.) TABLET PO (09:18)
[2024-12-13] MEDS: FERROUS SULFATE DRIED 142 MG TABCR PO ×2 (09:18→16:55)
[2024-12-13 14:00] VITALS: BP 122/61; PULSE 75; RESP 18; TEMP 36.9; O2SAT 100
--- NOTE | 2024-12-13 15:53 | P.PNIM_ITS ---
Progress Note: A&P Assessment and Plan (1) Liver abscess: Code(s): K75.0 - Abscess of liver Status: Acute (2) Diverticulitis of sigmoid colon: Code(s): K57.32 - Diverticulitis of large intestine without perforation or abscess without bleeding Status: Acute (3) Pyelonephritis of left kidney: Code(s): N12 - Tubulo-interstitial nephritis, not specified as acute or chronic Status: Acute (4) Weight loss: Code(s): R63.4 - Abnormal weight loss Status: Acute (5) Nodule of left lung: Code(s): R91.1 - Solitary pulmonary nodule Status: Acute (6) Bone lesion: Code(s): M89.9 - Disorder of bone, unspecified Status: Acute (7) Dehydration: Code(s): E86.0 - Dehydration Status: Acute Plan Record review indicates the patient was seen by Dr. Vargas on November 23, 2024 for abdominal pain. She was advised to finish the prescribed antibiotics of for diverticulitis and follow-up with GI for colonoscopy and follow-up with him in [address] scan abdomen/pelvis on 11/16/2024:which showed Nonobstructing bilateral renal calculi, as above. Mild left hydronephrosis could reflect recently passed stone. No ureteral stones seen currently. Findings compatible with sigmoid diverticulitis with associated pericolonic phlegmon and small bubbles of local free air. Phlegmon is also inseparable from the vaginal cuff. Correlate clinically for any clinical signs of fistulous connection to the vaginal cuff. Ill-defined hypodense hepatic mass like lesions measuring 3.3 cm and 1.5 cm in size, as detailed above. These are indeterminate. Pre and postcontrast CT or MR recommended for for further evaluation. Grouped nodular opacities left lung base, suggestive of infectious/inflammatory process and/or small impacted airways. Follow-up exam in 2-3 months advised given size of the nodules. CT Scan 12/09/2024:1. Bone lesions, consistent with metastatic disease. Consider CT-guided biopsy of the right ilium. 2. Left lung nodules and left hilar and mediastinal lymphadenopathy, which may be infection or metastatic disease. 3. Left-sided pyelonephritis. 4. Liver masses measuring up to 2.1 cm suspicious for abscesses. 5. 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 No drainable fluid. Abdomen MRI : IMPRESSION: 1. Enhancing bone lesions in the pelvis suspicious for metastatic disease. Could consider CT-guided bone biopsy. 2. Mild to moderate left hydroureteronephrosis with transition point at the distal left ureter suggesting stricture related to adjacent inflammatory changes which could be related to diverticulitis. 3. Multiple complex cystic lesions in the liver without evident solid enhancing soft tissue components to suggest neoplasm without evident correlate on the localizer images for an earlier lumbar spine MR dated 01/12/2024. This could represent hepatic abscesses related to the previously noted diverticulitis. 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 Exam Narrative: General: Nontoxic-appearing female sitting up at the side of the bed in no acute distress. Weight: 69 kg. BMI: 20.7. HEENT: PERRL, EOMI. Sclera anicteric. Tacky mucous membranes. Neck: Supple. Respiratory: Lungs are clear to auscultation bilaterally. Cardiovascular: Regular rate and rhythm with S1-S2. Gastrointestinal: Abdomen is soft and nondistended with positive bowel sounds. She is tender to palpation throughout the lower abdomen, more so in the left lower quadrant and somewhat in the suprapubic region. Left-sided CVA tenderness. Skin: Warm and dry. Extremities: No cyanosis, clubbing, or edema. Radial and pedal pulses intact. Neurological: Alert. Cranial nerves 2-12 are grossly intact. No gross focal deficits to casual conversation. Psychiatric: Pleasant and cooperative with normal mood and affect. Judgment and insight intact. Objective Data Vital Signs Vital Signs: Vital Signs - 24 hr 12/12/24 20:00 12/12/24 22:00 12/13/24 06:00 Temperature 97.8 F 97.6 F Pulse Rate 89 91 Respiratory Rate 16 16 Blood Pressure 118/62 129/59 L Pulse Oximetry 100 99 Oxygen Delivery Room Air 12/13/24 08:00 Temperature Pulse Rate Respiratory Rate Blood Pressure Pulse Oximetry Oxygen Delivery Room Air Intake/Output Intake/Output: Intake & Output 12/10/24 12/11/24 12/12/24 12/13/24 23:59 23:59 23:59 23:59 Intake Total 978.3 2080 1450 440 Balance 978.3 2080 1450 440 Meds/Results Medications: Active Medications Generic Name Dose Route Start Last Admin Trade Name Freq PRN Reason Stop Dose Admin Acetaminophen 650 mg 12/09/24 17:07 Acetaminophen 325 Mg Tablet PO Q4H PRN Mild Pain (1-3) or Fever Calcium Carbonate 500 mg 12/10/24 09:00 12/13/24 09:18 Calcium/Vitamin D 500 Mg/5 Mcg (200 I.U.) Tablet PO 500 mg QAM JEISON Administration Cyclosporine 1 drop 12/09/24 23:35 12/13/24 09:19 Cyclosporine 0.4 Ml Ophth Solution EACH EYE Not Given Q12HR JEISON Ferrous Sulfate 142 mg 12/13/24 08:00 12/13/24 09:18 Ferrous Sulfate Dried 142 Mg Tabcr PO 142 mg BIDWM JEISON Administration Ceftriaxone Sodium 1 gm in 50 mls @ 100 mls/hr 12/11/24 21:00 12/12/24 22:20 Rocephin 1 Gm/Ns 50 Ml IVPB 12/17/24 21:29 Infused Q24H JEISON Infusion Ondansetron HCl 4 mg 12/09/24 17:07 Ondansetron Inj 4 Mg/2 Ml Vial IV PUSH Q4H PRN Nausea Pantoprazole Sodium 40 mg 12/10/24 09:00 12/13/24 09:18 Pantoprazole 40 Mg Tablet PO 40 mg Q12HR JEISON Administration Polyethylene Glycol 17 gm 12/10/24 09:00 12/13/24 09:16 Polyethylene Glycol 3350 17 Gm Powd.Pack PO 17 gm DAILY JEISON Administration Potassium Chloride 20 meq 12/10/24 09:00 12/13/24 09:18 Potassium Chloride 20 Meq Er Tablet PO 20 meq BID JEISON Administration Psyllium Hydrophilic Mucilloid 1 packet 12/10/24 09:00 12/13/24 09:16 Psyllium Powder Packet PO 1 packet DAILY JEISON Administration Tramadol HCl 50 mg 12/09/24 23:34 12/13/24 09:15 Tramadol Hcl (*Crx) 50 Mg Tablet PO 50 mg Q8H PRN Administration pain 4-6 Radiology Results: ITS Impressions Chest/Abdomen/Pelvis CT 12/09/24 16:19 IMPRESSION: 1. Bone lesions, consistent with metastatic disease. Consider CT-guided biopsy of the right ilium. 2. Left lung nodules and left hilar and mediastinal lymphadenopathy, which may be infection or metastatic disease. 3. Left-sided pyelonephritis. 4. Liver masses measuring up to 2.1 cm suspicious for abscesses. 5. 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 No drainable fluid. ADDENDUM: 12/12/24 1309 There is a nondisplaced pathologic fracture of the left acromion. ADDENDUM: 12/12/24 1422 There is a pathologic fracture of C7 spinous process. Pelvis MRI 12/11/24 18:02 IMPRESSION: 1. Segmental wall thickening the sigmoid colon with surrounding inflammatory stranding which could be due to focal colitis, diverticulitis or potentially colon cancer. 2. Tract of soft tissue density extending between this segment of colon, the region of the cervix and adjacent loop of small bowel consistent with an enterocolic and/or colovaginal fistula. 3. 3 enhancing bone lesions in the pelvis suspicious for metastatic disease. 4. A few T2 hyperintense lesions in the inferior right hepatic lobe with appearance on earlier MRI of the abdomen suspicious for hepatic abscesses. 5. Moderate left hydroureteronephrosis with tapering of the ureter at the transition point located near the suspected fistula and suggesting stricture related to the surrounding inflammation. : Bone Biopsy CT 12/12/24 14:17 IMPRESSION: 1. CT-guided core needle biopsy of a lytic lesion in right fifth rib. Labs Labs: Laboratory Results - last 24 hr 12/12/24 17:16 Stl Occult Blood (IFOB) Negative Quality VTE Prophylaxis VTE prophylaxis: mechanical ordered
--- NOTE | 2024-12-13 15:55 | P.PNGS_ITS ---
Progress Note: A&P Assessment and Plan (1) Diverticulitis of intestine with abscess: Code(s): K57.80 - Diverticulitis of intestine, part unspecified, with perforation and abscess without bleeding Status: Acute Assessment and Plan: * Clinically improving. Tolerating low fiber diet. Okay to discharge on oral antibiotics when medically stable and can follow-up with Dr. Vargas in the office in 2 weeks. Will add Flagyl as she is only on ceftriaxone at this time. She will need anaerobic coverage with oral antibiotics on discharge as well. (2) Metastasis to bone: Code(s): C79.51 - Secondary malignant neoplasm of bone Status: Acute Assessment and Plan: * Bone biopsy yesterday, pathology pending Plan I have discussed the patient's case and plan of care with Dr. Vargas. Subjective Subjective Date/Time Seen: 12/13/24 15:55 Patient reports: no new complaints, pain is less, tolerating a regular diet, flatus, bowel movement and afebrile Exam Const: General: comfortable and no acute distress Orientation/consciousness: patient oriented x3 GI: Inspection: non-distended GI Palp: Yes Soft to palpation, Yes Tenderness to palpation present (GI) (mild LLQ and RLQ tenderness), No Guarding due to palpation present (GI) and No Rebound tenderness present Auscultation: normal bowel sounds Objective Data Vital Signs Vital Signs: Vital Signs - 24 hr 12/12/24 20:00 12/12/24 22:00 12/13/24 06:00 Temperature 97.8 F 97.6 F Pulse Rate 89 91 Respiratory Rate 16 16 Blood Pressure 118/62 129/59 L Pulse Oximetry 100 99 Oxygen Delivery Room Air 12/13/24 08:00 Temperature Pulse Rate Respiratory Rate Blood Pressure Pulse Oximetry Oxygen Delivery Room Air Intake/Output Intake/Output: Intake & Output 12/10/24 12/11/24 12/12/24 12/13/24 23:59 23:59 23:59 23:59 Intake Total 978.3 2080 1450 440 Balance 978.3 2080 1450 440 Meds/Results Medications: Active Medications Generic Name Dose Route Start Last Admin Trade Name Freq PRN Reason Stop Dose Admin Acetaminophen 650 mg 12/09/24 17:07 Acetaminophen 325 Mg Tablet PO Q4H PRN Mild Pain (1-3) or Fever Calcium Carbonate 500 mg 12/10/24 09:00 12/13/24 09:18 Calcium/Vitamin D 500 Mg/5 Mcg (200 I.U.) Tablet PO 500 mg QAM JEISON Administration Cyclosporine 1 drop 12/09/24 23:35 12/13/24 09:19 Cyclosporine 0.4 Ml Ophth Solution EACH EYE Not Given Q12HR JEISON Ferrous Sulfate 142 mg 12/13/24 08:00 12/13/24 09:18 Ferrous Sulfate Dried 142 Mg Tabcr PO 142 mg BIDWM EJISON Administration Ceftriaxone Sodium 1 gm in 50 mls @ 100 mls/hr 12/11/24 21:00 12/12/24 22:20 Rocephin 1 Gm/Ns 50 Ml IVPB 12/17/24 21:29 Infused Q24H JEISON Infusion Ondansetron HCl 4 mg 12/09/24 17:07 Ondansetron Inj 4 Mg/2 Ml Vial IV PUSH Q4H PRN Nausea Pantoprazole Sodium 40 mg 12/10/24 09:00 12/13/24 09:18 Pantoprazole 40 Mg Tablet PO 40 mg Q12HR JEISON Administration Polyethylene Glycol 17 gm 12/10/24 09:00 12/13/24 09:16 Polyethylene Glycol 3350 17 Gm Powd.Pack PO 17 gm DAILY JEISON Administration Potassium Chloride 20 meq 12/10/24 09:00 12/13/24 09:18 Potassium Chloride 20 Meq Er Tablet PO 20 meq BID JEISON Administration Psyllium Hydrophilic Mucilloid 1 packet 12/10/24 09:00 12/13/24 09:16 Psyllium Powder Packet PO 1 packet DAILY JEISON Administration Tramadol HCl 50 mg 12/09/24 23:34 12/13/24 09:15 Tramadol Hcl (*Crx) 50 Mg Tablet PO 50 mg Q8H PRN Administration pain 4-6 Radiology Results: ITS Impressions Chest/Abdomen/Pelvis CT 12/09/24 16:19 IMPRESSION: 1. Bone lesions, consistent with metastatic disease. Consider CT-guided biopsy of the right ilium. 2. Left lung nodules and left hilar and mediastinal lymphadenopathy, which may be infection or metastatic disease. 3. Left-sided pyelonephritis. 4. Liver masses measuring up to 2.1 cm suspicious for abscesses. 5. 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 No drainable fluid. ADDENDUM: 12/12/24 1309 There is a nondisplaced pathologic fracture of the left acromion. ADDENDUM: 12/12/24 1422 There is a pathologic fracture of C7 spinous process. Pelvis MRI 12/11/24 18:02 IMPRESSION: 1. Segmental wall thickening the sigmoid colon with surrounding inflammatory stranding which could be due to focal colitis, diverticulitis or potentially colon cancer. 2. Tract of soft tissue density extending between this segment of colon, the region of the cervix and adjacent loop of small bowel consistent with an enterocolic and/or colovaginal fistula. 3. 3 enhancing bone lesions in the pelvis suspicious for metastatic disease. 4. A few T2 hyperintense lesions in the inferior right hepatic lobe with appearance on earlier MRI of the abdomen suspicious for hepatic abscesses. 5. Moderate left hydroureteronephrosis with tapering of the ureter at the transition point located near the suspected fistula and suggesting stricture rel ated to the surrounding inflammation. : Bone Biopsy CT 12/12/24 14:17 IMPRESSION: 1. CT-guided core needle biopsy of a lytic lesion in right fifth rib. Labs Labs: Laboratory Results - last 24 hr 12/12/24 17:16 Stl Occult Blood (IFOB) Negative
[2024-12-13] MEDS: metroNIDAZOLE 500 MG/ISO 100ML 500 MG/100 ML BAG 100 MG IVPB ×2 (16:55→22:00)
[2024-12-13] MEDS: cycloSPORINE 0.4 ML OPHTH SOLUTION 1 DROP EACH EYE (20:46)
[2024-12-13 22:00] VITALS: BP 125/61; PULSE 77; RESP 18; TEMP 36.7; O2SAT 100
[2024-12-14 02:57] LABS: CA-125 21 U/mL (<35)
[2024-12-14] MEDS: metroNIDAZOLE 500 MG/ISO 100ML 500 MG/100 ML BAG 100 MG IVPB ×2 (05:10→13:12)
[2024-12-14 06:00] VITALS: BP 124/59; PULSE 79; RESP 18; TEMP 36.4; O2SAT 100
[2024-12-14 06:54] LABS: Haptoglobin 542 mg/dL (43-212)
[2024-12-14 07:42] LABS: Basophils Absolute Auto 0.1 K/mm3 (0.0-0.1); Basophils Percent Auto 0.8 % (0.2-1.2); Eosinophils Absolute Auto 0.2 K/mm3 (0-0.3); Eosinophils Percent Auto 2.5 % (0-4.4); Hematocrit 29.5 % (37.0-47.0); Hemoglobin 9.4 g/dL (12.0-15.0); Immature Granulocyte Absolute 0.25 K/mm3 (0.00-0.031); Immature Granulocyte Percent A 3.4 % (0-0.5); Lymphocytes Absolute Auto 1.78 K/mm3 (0.9-3.2); Lymphocytes Percent Auto 24.3 % (18.3-44.2); Mean Corpuscular HGB Conc 31.9 g/dl (32-36); Mean Corpuscular Hemoglobin 27.2 pg (26-34); Mean Corpuscular Volume 85.3 fl (80-100); Mean Platelet Volume 9.2 fl (7.4-10.4); Monocytes Absolute Auto 0.8 K/mm3 (0.1-0.6); Monocytes Percent Auto 11.3 % (2.6-8.5); Neutrophils Absolute Auto 4.2 K/mm3 (1.3-6.7); Neutrophils Percent Auto 57.7 % (45.5-73.1); Platelet Count Result 529 k/mm3 (150-375); Red Blood Count 3.46 M/mm3 (4.2-5.4); Red Cell Distribution Width 20.9 % (11.5-14.5); White Blood Count 7.3 K/mm3 (4.5-10.0)
[2024-12-14 07:52] LABS: Alanine Aminotransferase 33 U/L (6-35); Albumin Level 2.9 g/dL (3.5-5.1); Alkaline Phosphatase 121 U/L (38-126); Anion Gap 6 mmol/L (4-12); Aspartate Amino Transferase 31 U/L (14-36); Bilirubin,Total 0.4 mg/dL (0.2-1.3); Blood Urea Nitrogen 8 mg/dL (7-17); Calcium 9.4 mg/dL (8.4-10.2); Carbon Dioxide 26 mmol/L (22-30); Chloride 101 mmol/L (98-107); Estimated CRCL calculation 41 ml/min; Estimated Glomerular Filt Rate 55; Glucose 84 mg/dL (65-110); Magnesium 1.8 mg/dL (1.6-2.3); Potassium 4.2 mmol/L (3.4-5.0); Sodium 133 mmol/L (137-145)
[2024-12-14] MEDS: polyethylene glycoL 3350 17 GM POWD.PACK PO (08:44)
[2024-12-14] MEDS: PSYLLIUM POWDER PACKET 1 PACKET PO (08:44)
[2024-12-14] MEDS: POTASSIUM CHLORIDE 20 MEQ ER TABLET PO ×2 (08:45→16:51)
[2024-12-14] MEDS: PANTOPRAZOLE 40 MG TABLET PO ×2 (08:45→20:45)
[2024-12-14] MEDS: CALCIUM/VITAMIN D 500 MG/5 MCG (200 I.U.) TABLET PO (08:45)
[2024-12-14] MEDS: FERROUS SULFATE DRIED 142 MG TABCR PO ×2 (08:45→16:51)
[2024-12-14] MEDS: traMADol HCL (*CRX) 50 MG TABLET PO ×2 (08:45→18:28)
--- NOTE | 2024-12-14 10:40 | PM.PNGS ---
Progress Note: A&P Assessment and Plan (1) Diverticulitis of intestine with abscess: Code(s): K57.80 - Diverticulitis of intestine, part unspecified, with perforation and abscess without bleeding Status: Acute Assessment and Plan: exam benign, given other medical issues she is really not a candidate for elective sigmoid resection, kelsey as it may delay treatment of likely malignancy, cont conservative mgmt c low fiber diet and abx, ok to dc home from surgical standpoint, f/u 2 wks (2) Metastasis to bone: Code(s): C79.51 - Secondary malignant neoplasm of bone Status: Acute Assessment and Plan: await path, will need f/u c oncology Subjective Subjective Date/Time Seen: 12/14/24 10:40 Interval history: feels ok, no abd pain, anxious about path Review of Systems Review of Systems: All systems reviewed & are unremarkable except as noted in HPI and below Exam Const: General: cooperative, comfortable and no acute distress Resp: Auscultation: clear to auscultation bilaterally Cardio: Rate: regular rate Rhythm: regular rhythm GI: Inspection: normal to inspection GI Palp: No abdominal tenderness and Yes Soft to palpation Objective Data Vital Signs Vital Signs: Vital Signs - 24 hr 12/13/24 14:00 12/13/24 20:00 12/13/24 22:00 Temperature 36.9 C 36.7 C Pulse Rate 75 77 Respiratory Rate 18 18 Blood Pressure 122/61 125/61 Pulse Oximetry 100 100 Oxygen Delivery Room Air 12/14/24 06:00 Temperature 36.4 C Pulse Rate 79 Respiratory Rate 18 Blood Pressure 124/59 L Pulse Oximetry 100 Oxygen Delivery Intake/Output Intake/Output: Intake & Output 12/11/24 12/12/24 12/13/24 12/14/24 23:59 23:59 23:59 23:59 Intake Total 0 1450 2120 200 Balance 0 1450 2120 200 Meds/Results Medications: Active Medications Generic Name Dose Route Start Last Admin Trade Name Freq PRN Reason Stop Dose Admin Acetaminophen 650 mg 12/09/24 17:07 Acetaminophen 325 Mg Tablet PO Q4H PRN Mild Pain (1-3) or Fever Calcium Carbonate 500 mg 12/10/24 09:00 12/14/24 08:45 Calcium/Vitamin D 500 Mg/5 Mcg (200 I.U.) Tablet PO 500 mg QAM JEISON Administration Cyclosporine 1 drop 12/09/24 23:35 12/14/24 08:46 Cyclosporine 0.4 Ml Ophth Solution EACH EYE Not Given Q12HR [facility] Enoxaparin Sodium 40 mg 12/14/24 09:00 12/14/24 08:48 Enoxaparin 40 Mg/0.4 Ml Syringe SUB-Q Not Given DAILY [facility] [place] Ferrous Sulfate 142 mg 12/13/24 08:00 12/14/24 08:45 Ferrous Sulfate Dried 142 Mg Tabcr PO 142 mg BIDWM JEISON Administration Ceftriaxone Sodium 1 gm in 50 mls @ 100 mls/hr 12/11/24 21:00 12/13/24 20:46 Rocephin 1 Gm/Ns 50 Ml IVPB 12/17/24 21:29 100 mls/hr Q24H JEISON Administration Metronidazole 500 mg in 100 mls @ 100 mls/hr 12/13/24 16:30 12/14/24 06:10 Flagyl 500 Mg/Iso Soln 100 Ml IVPB Infused Q8HR [facility] [place] Infusion Ondansetron HCl 4 mg 12/09/24 17:07 Ondansetron Inj 4 Mg/2 Ml Vial IV PUSH Q4H PRN Nausea Pantoprazole Sodium 40 mg 12/10/24 09:00 12/14/24 08:45 Pantoprazole 40 Mg Tablet PO 40 mg Q12HR JEISON Administration Polyethylene Glycol 17 gm 12/10/24 09:00 12/14/24 08:44 Polyethylene Glycol 3350 17 Gm Powd.Pack PO 17 gm DAILY JEISON Administration Potassium Chloride 20 meq 12/10/24 09:00 12/14/24 08:45 Potassium Chloride 20 Meq Er Tablet PO 20 meq BID JEISON Administration Psyllium Hydrophilic Mucilloid 1 packet 12/10/24 09:00 12/14/24 08:44 Psyllium Powder Packet PO 1 packet DAILY [facility] [place] Administration Tramadol HCl 50 mg 12/09/24 23:34 12/14/24 08:45 Tramadol Hcl (*Crx) 50 Mg Tablet PO 50 mg Q8H PRN Administration pain 4-6 Radiology Results: ITS Impressions Chest/Abdomen/Pelvis CT 12/09/24 16:19 IMPRESSION: 1. Bone lesions, consistent with metastatic disease. Consider CT-guided biopsy of the right ilium. 2. Left lung nodules and left hilar and mediastinal lymphadenopathy, which may be infection or metastatic disease. 3. Left-sided pyelonephritis. 4. Liver masses measuring up to 2.1 cm suspicious for abscesses. 5. 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 No drainable fluid. ADDENDUM: 12/12/24 1309 There is a nondisplaced pathologic fracture of the left acromion. ADDENDUM: 12/12/24 1422 There is a pathologic fracture of C7 spinous process. Pelvis MRI 12/11/24 18:02 IMPRESSION: 1. Segmental wall thickening the sigmoid colon with surrounding inflammatory stranding which could be due to focal colitis, diverticulitis or potentially colon cancer. 2. Tract of soft tissue density extending between this segment of colon, the region of the cervix and adjacent loop of small bowel consistent with an enterocolic and/or colovaginal fistula. 3. 3 enhancing bone lesions in the pelvis suspicious for metastatic disease. 4. A few T2 hyperintense lesions in the inferior right hepatic lobe with appearance on earlier MRI of the abdomen suspicious for hepatic abscesses. 5. Moderate left hydroureteronephrosis with tapering of the ureter at the transition point located near the suspected fistula and suggesting stricture related to the surrounding inflammation. : Bone Biopsy CT 12/12/24 14:17 IMPRESSION: 1. CT-guided core needle biopsy of a lytic lesion in right fifth rib. Labs Labs: Laboratory Results - last 24 hr 12/12/24 12/14/24 08:59 07:25 WBC 7.3 RBC 3.46 L Hgb 9.4 L Hct 29.5 L MCV 85.3 MCH 27.2 MCHC 31.9 L RDW 20.9 H Plt Count 529 H MPV 9.2 Immature Gran % (Auto) 3.4 H Neut % (Auto) 57.7 Lymph % (Auto) 24.3 [place] % (Auto) 11.3 H Eos % (Auto) 2.5 Baso % (Auto) 0.8 Lymph # (Auto) 1.78 [place] # (Auto) 0.8 H Eos # (Auto) 0.2 Baso # (Auto) 0.1 Abs Immat Gran (auto) 0.25 H Absolute Neuts (auto) 4.2 Absolute Nucleated RBC 0.000 Nucleated RBC % 0.0 Haptoglobin 542 H Sodium 133 L Potassium 4.2 Chloride 101 Carbon Dioxide 26 Anion Gap 6 BUN 8 Creatinine 1.00 Estim Creat Clear Calc 41 Estimated GFR 55 L Glucose 84 Calcium 9.4 Magnesium 1.8 Total Bilirubin 0.4 AST 31 ALT 33 Alkaline Phosphatase 121 Total Protein 7.0 Albumin 2.9 L CA 125 Antigen 21
--- NOTE | 2024-12-14 11:55 | P.PNIM_ITS ---
Progress Note: A&P Assessment and Plan (1) Liver abscess: Code(s): K75.0 - Abscess of liver Status: Acute (2) Diverticulitis of sigmoid colon: Code(s): K57.32 - Diverticulitis of large intestine without perforation or abscess without bleeding Status: Acute (3) Pyelonephritis of left kidney: Code(s): N12 - Tubulo-interstitial nephritis, not specified as acute or chronic Status: Acute (4) Weight loss: Code(s): R63.4 - Abnormal weight loss Status: Acute (5) Nodule of left lung: Code(s): R91.1 - Solitary pulmonary nodule Status: Acute (6) Bone lesion: Code(s): M89.9 - Disorder of bone, unspecified Status: Acute (7) Dehydration: Code(s): E86.0 - Dehydration Status: Acute Plan Record review indicates the patient was seen by Dr. Vargas on November 23, 2024 for abdominal pain. She was advised to finish the prescribed antibiotics of for diverticulitis and follow-up with GI for colonoscopy and follow-up with him in [address] scan abdomen/pelvis on 11/16/2024:which showed Nonobstructing bilateral renal calculi, as above. Mild left hydronephrosis could reflect recently passed stone. No ureteral stones seen currently. Findings compatible with sigmoid diverticulitis with associated pericolonic phlegmon and small bubbles of local free air. Phlegmon is also inseparable from the vaginal cuff. Correlate clinically for any clinical signs of fistulous connection to the vaginal cuff. Ill-defined hypodense hepatic mass like lesions measuring 3.3 cm and 1.5 cm in size, as detailed above. These are indeterminate. Pre and postcontrast CT or MR recommended for for further evaluation. Grouped nodular opacities left lung base, suggestive of infectious/inflammatory process and/or small impacted airways. Follow-up exam in 2-3 months advised given size of the nodules. CT Scan 12/09/2024:1. Bone lesions, consistent with metastatic disease. Consider CT-guided biopsy of the right ilium. 2. Left lung nodules and left hilar and mediastinal lymphadenopathy, which may be infection or metastatic disease. 3. Left-sided pyelonephritis. 4. Liver masses measuring up to 2.1 cm suspicious for abscesses. 5. 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 No drainable fluid. Abdomen MRI : IMPRESSION: 1. Enhancing bone lesions in the pelvis suspicious for metastatic disease. Could consider CT-guided bone biopsy. 2. Mild to moderate left hydroureteronephrosis with transition point at the distal left ureter suggesting stricture related to adjacent inflammatory changes which could be related to diverticulitis. 3. Multiple complex cystic lesions in the liver without evident solid enhancing soft tissue components to suggest neoplasm without evident correlate on the localizer images for an earlier lumbar spine MR dated 01/12/2024. This could represent hepatic abscesses related to the previously noted diverticulitis. 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 Exam Narrative: General: Nontoxic-appearing female sitting up at the side of the bed in no acute distress. Weight: 69 kg. BMI: 20.7. HEENT: PERRL, EOMI. Sclera anicteric. Tacky mucous membranes. Neck: Supple. Respiratory: Lungs are clear to auscultation bilaterally. Cardiovascular: Regular rate and rhythm with S1-S2. Gastrointestinal: Abdomen is soft and nondistended with positive bowel sounds. She is tender to palpation throughout the lower abdomen, more so in the left lower quadrant and somewhat in the suprapubic region. Left-sided CVA tenderness. Skin: Warm and dry. Extremities: No cyanosis, clubbing, or edema. Radial and pedal pulses intact. Neurological: Alert. Cranial nerves 2-12 are grossly intact. No gross focal deficits to casual conversation. Psychiatric: Pleasant and cooperative with normal mood and affect. Judgment and insight intact. Objective Data Vital Signs Vital Signs: Vital Signs - 24 hr 12/13/24 14:00 12/13/24 20:00 12/13/24 22:00 Temperature 98.5 F 98.1 F Pulse Rate 75 77 Respiratory Rate 18 18 Blood Pressure 122/61 125/61 Pulse Oximetry 100 100 Oxygen Delivery Room Air 12/14/24 06:00 12/14/24 08:00 Temperature 97.6 F Pulse Rate 79 Respiratory Rate 18 Blood Pressure 124/59 L Pulse Oximetry 100 Oxygen Delivery Room Air Intake/Output Intake/Output: Intake & Output 12/11/24 12/12/24 12/13/24 12/14/24 23:59 23:59 23:59 23:59 Intake Total 2080 1450 2120 440 Balance 2080 1450 2120 440 Meds/Results Medications: Active Medications Generic Name Dose Route Start Last Admin Trade Name Freq PRN Reason Stop Dose Admin Acetaminophen 650 mg 12/09/24 17:07 Acetaminophen 325 Mg Tablet PO Q4H PRN Mild Pain (1-3) or Fever Calcium Carbonate 500 mg 12/10/24 09:00 12/14/24 08:45 Calcium/Vitamin D 500 Mg/5 Mcg (200 I.U.) Tablet PO 500 mg QAM JEISON Administration Cyclosporine 1 drop 12/09/24 23:35 12/14/24 08:46 Cyclosporine 0.4 Ml Ophth Solution EACH EYE Not Given Q12HR COUNTS INCLUDE 234 BEDS AT [facility] Enoxaparin Sodium 40 mg 12/14/24 09:00 12/14/24 08:48 Enoxaparin 40 Mg/0.4 Ml Syringe SUB-Q Not Given DAILY JEISON Ferrous Sulfate 142 mg 12/13/24 08:00 12/14/24 08:45 Ferrous Sulfate Dried 142 Mg Tabcr PO 142 mg BIDWM JEISON Administration Ceftriaxone Sodium 1 gm in 50 mls @ 100 mls/hr 12/11/24 21:00 12/13/24 20:46 Rocephin 1 Gm/Ns 50 Ml IVPB 12/17/24 21:29 100 mls/hr Q24H JEISON Administration Metronidazole 500 mg in 100 mls @ 100 mls/hr 12/13/24 16:30 12/14/24 06:10 Flagyl 500 Mg/Iso Soln 100 Ml IVPB Infused Q8HR JEISON Infusion Ondansetron HCl 4 mg 12/09/24 17:07 Ondansetron Inj 4 Mg/2 Ml Vial IV PUSH Q4H PRN Nausea Pantoprazole Sodium 40 mg 12/10/24 09:00 12/14/24 08:45 Pantoprazole 40 Mg Tablet PO 40 mg Q12HR JEISON Administration Polyethylene Glycol 17 gm 12/10/24 09:00 12/14/24 08:44 Polyethylene Glycol 3350 17 Gm Powd.Pack PO 17 gm DAILY JEISON Administration Potassium Chloride 20 meq 12/10/24 09:00 12/14/24 08:45 Potassium Chloride 20 Meq Er Tablet PO 20 meq BID JEISON Administration Psyllium Hydrophilic Mucilloid 1 packet 12/10/24 09:00 12/14/24 08:44 Psyllium Powder Packet PO 1 packet DAILY JEISON Administration Tramadol HCl 50 mg 12/09/24 23:34 12/14/24 08:45 Tramadol Hcl (*Crx) 50 Mg Tablet PO 50 mg Q8H PRN Administration pain 4-6 Radiology Results: ITS Impressions Chest/Abdomen/Pelvis CT 12/09/24 16:19 IMPRESSION: 1. Bone lesions, consistent with metastatic disease. Consider CT-guided biopsy of the right ilium. 2. Left lung nodules and left hilar and mediastinal lymphadenopathy, which may be infection or metastatic disease. 3. Left-sided pyelonephritis. 4. Liver masses measuring up to 2.1 cm suspicious for abscesses. 5. 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 No drainable fluid. ADDENDUM: 12/12/24 1309 There is a nondisplaced pathologic fracture of the left acromion. ADDENDUM: 12/12/24 1422 There is a pathologic fracture of C7 spinous process. Pelvis MRI 12/11/24 18:02 IMPRESSION: 1. Segmental wall thickening the sigmoid colon with surrounding inflammatory stranding which could be due to focal colitis, diverticulitis or potentially colon cancer. 2. Tract of soft tissue density extending between this segment of colon, the region of the cervix and adjacent loop of small bowel consistent with an enterocolic and/or colovaginal fistula. 3. 3 enhancing bone lesions in the pelvis suspicious for metastatic disease. 4. A few T2 hyperintense lesions in the inferior right hepatic lobe with appearance on earlier MRI of the abdomen suspicious for hepatic abscesses. 5. Moderate left hydroureteronephrosis with tapering of the ureter at the transition point located near the suspected fistula and suggesting stricture related to the surrounding inflammation. : Bone Biopsy CT 12/12/24 14:17 IMPRESSION: 1. CT-guided core needle biopsy of a lytic lesion in right fifth rib. Labs Labs: Laboratory Results - last 24 hr 12/12/24 12/14/24 08:59 07:25 WBC 7.3 RBC 3.46 L Hgb 9.4 L Hct 29.5 L MCV 85.3 MCH 27.2 MCHC 31.9 L RDW 20.9 H Plt Count 529 H MPV 9.2 Immature Gran % (Auto) 3.4 H Neut % (Auto) 57.7 Lymph % (Auto) 24.3 [place] % (Auto) 11.3 H Eos % (Auto) 2.5 Baso % (Auto) 0.8 Lymph # (Auto) 1.78 [place] # (Auto) 0.8 H Eos # (Auto) 0.2 Baso # (Auto) 0.1 Abs Immat Gran (auto) 0.25 H Absolute Neuts (auto) 4.2 Absolute Nucleated RBC 0.000 Nucleated RBC % 0.0 Haptoglobin 542 H Sodium 133 L Potassium 4.2 Chloride 101 Carbon Dioxide 26 Anion Gap 6 BUN 8 Creatinine 1.00 Estim Creat Clear Calc 41 Estimated GFR 55 L Glucose 84 Calcium 9.4 Magnesium 1.8 Total Bilirubin 0.4 AST 31 ALT 33 Alkaline Phosphatase 121 Total Protein 7.0 Albumin 2.9 L CA 125 Antigen 21 Quality VTE Prophylaxis VTE prophylaxis: mechanical ordered
[2024-12-14 14:00] VITALS: BP 137/67; PULSE 77; RESP 20; TEMP 36.8; O2SAT 100
[2024-12-14 22:00] VITALS: BP 140/67; PULSE 76; RESP 18; TEMP 36.9; O2SAT 99
[2024-12-14] MEDS: metroNIDAZOLE 500 MG TABLET PO (22:05)
[2024-12-15] MEDS: metroNIDAZOLE 500 MG TABLET PO ×3 (05:33→21:31)
[2024-12-15 06:00] VITALS: BP 120/51; PULSE 71; RESP 18; TEMP 37; O2SAT 95
[2024-12-15] MEDS: PSYLLIUM POWDER PACKET 1 PACKET PO (09:05)
[2024-12-15] MEDS: polyethylene glycoL 3350 17 GM POWD.PACK PO (09:05)
[2024-12-15 09:07] VITALS: RESP 18; O2SAT 95
[2024-12-15] MEDS: POTASSIUM CHLORIDE 20 MEQ ER TABLET PO ×2 (09:07→16:02)
[2024-12-15] MEDS: PANTOPRAZOLE 40 MG TABLET PO ×2 (09:07→21:31)
[2024-12-15] MEDS: CALCIUM/VITAMIN D 500 MG/5 MCG (200 I.U.) TABLET PO (09:07)
--- NOTE | 2024-12-15 10:05 | PCNFU ---
Nutrition Follow-Up Complete: Severe protein calorie malnutrition related to altered GI function, loss of appetite as evidenced by intakes <75% needs >1 month; weight loss 19%/4 months and 29%/9 months Adequate PO intake at least 75% when diet advanced - Progressing. Intakes 50-100% Goal: Pt current nutrition is Low fiber diet. Ensure Enlive BID (350 kcal, 20 g protein). Nutrition recommendation: No new recommendations. Continue current nutrition care plan and orders. Agree with orders. Last recorded weight is 65.2 kg. Bowel Motility: Last BM +1 12/12/24 Labs Reviewed: No labs today. Labs 12/14 Hgb 9.4, Hct 29.5, Alb 2.9, Na 133 Meds Noted : Protonix, Zofran, rocephin Skin: No skin issues Additional Notes: pt had biopsy, advanced to low fiber diet by GI for diverticulitis. Discharge soon. Intakes are fair to good, supplements are appropriate. Agree with orders. Monitoring diet orders, weights, intakes, labs, output, plan of care Follow up in 3 days
[2024-12-15 14:00] VITALS: BP 141/66; PULSE 86; RESP 20; TEMP 36.3; O2SAT 100
[2024-12-15] MEDS: FERROUS SULFATE DRIED 142 MG TABCR PO (16:02)
[2024-12-15 18:43] LABS: Methylmalonic Acid 138 nmol/L (69-390)
[2024-12-15] MEDS: traMADol HCL (*CRX) 50 MG TABLET PO (19:32)
[2024-12-15 22:18] VITALS: BP 138/60; PULSE 86; RESP 20; TEMP 36.6; O2SAT 100
[2024-12-16] MEDS: metroNIDAZOLE 500 MG TABLET PO (05:54)
[2024-12-16] MEDS: ONDANSETRON INJ 4 MG/2 ML VIAL IV PUSH (05:56)
[2024-12-16 06:00] VITALS: BP 133/65; PULSE 112; RESP 20; TEMP 36.7; O2SAT 100
[2024-12-16] MEDS: LIDOCAINE 1% PF INJ 5 ML VIAL INFILTRATE (08:45)
[2024-12-16] MEDS: POTASSIUM CHLORIDE 20 MEQ ER TABLET PO (10:16)
[2024-12-16] MEDS: PANTOPRAZOLE 40 MG TABLET PO (10:16)
[2024-12-16] MEDS: CALCIUM/VITAMIN D 500 MG/5 MCG (200 I.U.) TABLET PO (10:16)
[2024-12-16] MEDS: cycloSPORINE 0.4 ML OPHTH SOLUTION 1 DROP EACH EYE (10:17)
--- NOTE | 2024-12-16 10:45 | P.DS_ITS ---
DS: Admitting Diagnosis Discharge Date 12/16/24, Admitting Diagnosis Abdominal pain. DS: Discharge Diagnosis Discharge Diagnosis (1) Pyelonephritis of left kidney: Code(s): N12 - Tubulo-interstitial nephritis, not specified as acute or chronic Status: Acute (2) Liver abscess: Code(s): K75.0 - Abscess of liver Status: Acute DS: Summary Hospital Course Hospital Course: This is a very pleasant 69-year-old female smoker with history of atrial tachycardia status post cardiac ablation, peripartum cardiomyopathy at the age of 46, hypertension, hyperlipidemia, recurrent syncope status post loop recorder, gastroesophageal reflux disease, esophageal web, arthritis, anxiety, and chronic back pain who presented to the emergency department via private vehicle at the instruction of her primary doctor for evaluation of abdominal pain. The patient and her son provide the following history. She gives a 1 month history of generalized abdominal discomfort, anorexia, early satiety, occasional dysphagia, intermittent nausea and vomiting, nearly 50 lb unintentional weight loss, and an increase in her chronic back pain. CT scan at that time showed sigmoid diverticulitis with associated phlegmon small bubbles of local free air inseparable from the vaginal cuff and indeterminate ill-defined hypodensities in the liver. EGD has been scheduled and she was told to increase her PPI to twice daily and start sucralfate. Regarding the diverticulitis, she was started on metronidazole and ciprofloxacin and due to concerns for colovaginal fistula (patient reported brownish yellow discharge from the vaginal area similar to her stools) she was referred to General surgery (complete course of antibiotics, switched high-fiber diet once symptoms resolve, and follow-up with GI for c olonoscopy) and Gynecology (normal exam with usual vaginal discharge and no evidence of fistula). Unfortunately she is not feeling any better and continues to have diffuse lower abdominal discomfort, poor oral intake, and back pain. She is getting lightheaded and dizzy and has stopped taking her blood pressure medications. Due to ongoing symptoms she called her doctor who instructed her to come to the emergency department as she will likely need to be admitted for further workup. She denies fever, chills, sweats, lymphadenopathy, sinus congestion, sore throat, cough, chest pain, hematemesis, melena, hematochezia, hematuria, dysuria, breast mass, and changing skin lesions. She has never had an abnormal mammogram and she is up-to-date on colonoscopy with history of benign polyps. No history of cancer. In the ED: She was afebrile on arrival with stable vital signs though blood pressures have been running at the lower end of normal. Labs are significant for WBC count of 11.7, sodium 129, chloride 89, carbon dioxide 31, total bilirubin 0.8, AST 94, ALT 79, alkaline phosphatase 198, CRP 20.1, albumin 3.3. Urine was positive for 2+ protein, 1+ blood, 3+ leukocyte esterase, 6 to 10 RBC, and greater than [address] with 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 She was started on piperacillin-tazobactam and IV fluids and she is being admitted in this setting for further treatment and workup. Patient was started on Antibiotics for pyelonephritis and urine culture E coli sensitive to Rocephin. Gen was surgery was consulted for hepatic abscess however recommended antibiotics therapy for now and will follow up outpatient for fistula after infection has been treated. Dr Ludwig was consulted for bone mets with unknown primary, biopsy was done and pathology showed carcinona of unknown primary. Patient will continue follow up with Dr Ludwig as scheduled. Given liver abscess, patient was discharged on Rocephin and Flagyl to complete a total of 14 days. F/u with PCP in 3-5 days F/u with Gen surgery and oncology as instructed. 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 further plans pending bone biopsy oncology and surgery and Gi following Time Spent with Patient Time attestation: Total time spent providing and/or coordinating discharge services: DS: Data Data Completed and Pending Completed studies during hospitalization: Pending at discharge 12/12/24 14:01 Surgical [PTH] Routine Labs on day of discharge: Labs from last 24 hours 12/12/24 08:59 Methylmalonic Acid 138 Discharge Plan Discharge Attending physician on discharge: Merrick Green Consulting providers: Mary Vargas; Basil Ludwig Discharging Clinician: Merrick Green Anticipated Discharge Date/Time: 12/16/24 10:38 Patient Disposition: Home Health Service Activity: as tolerated Diet: as tolerated Discharge Instructions: Per Care Coordination: [facility] infusion ([phone]) arranged for IV antibiotics for IV Rocephin 1g q24 until 12/23/24. [facility] ([phone]) has been arranged for nursing. *Nursing please fax discharge instructions to [phone] Dr. Per Samson has agreed to follow. PICC to be pulled after treatment 12/23/[address] Green. Patient Instructions: Antibiotic Form, Heart Failure (GEN) Patient Language: Luxembourgish Stand Alone Forms: General Discharge Information Follow-up/Referrals: Basil Ludwig MD [Physician] - (F/u with oncology as instructed ) Mary Vargas MD [Physician] - (F/u with Surgery as instructed ) Per Samson MD [Primary Care Provider] - (F/u with PCP in 3-5 days ) Discharge Medications: New ferrous sulfate [Slow Release Iron] 142 mg (45 mg iron) Tablet Extended Release 142 mg PO BIDWM 30 Days Qty: 60 0RF metronidazole 500 mg Tablet 500 mg PO Q8HR 7 Days Qty: 21 0RF Continued Centrum Silver 0.4-300-250 mg-mcg-mcg tablet 1 tablet PO DAILY Restasis 0.05 % dropperette 1 drp EACH EYE Q12H Caltrate 600 plus D 600 mg-20 mcg (800 unit) tablet,chewable 1 tablet PO DAILY bumetanide 1 mg tablet 2 mg PO DAILY metolazone 2.5 mg tablet 2.5 mg PO EVERY OTHER DAY tramadol 50 mg tablet 50 mg PO Q8H PRN (Reason: pain) Qty: 90 0RF mineral oil Oil 15 ml PO DAILY polyethylene glycol 3350 [Miralax] 17 gram Powder In Packet 17 g PO DAILY Metamucil 3.4 gram/5.4 gram powder 1 tbsp PO DAILY Rx Instructions: mix into at least 8 oz of water or juice before administering potassium chloride 20 mEq tablet extended release 20 meq PO BID Rx Instructions: TAKE 2 TABLETS BY MOUTH DAILY omeprazole 40 mg capsule,delayed release(DR/EC) See Rx Instructions .ROUTE .COMPLEX Qty: 180 0RF Dose Instruction: TAKE 1 CAPSULE BY MOUTH TWICE DAILY Rx Instructions: TAKE 1 CAPSULE BY MOUTH TWICE DAILY atorvastatin 20 mg tablet See Rx Instructions .ROUTE .COMPLEX Qty: 90 0RF Dose Instruction: TAKE 1 TABLET BY MOUTH DAILY Rx Instructions: TAKE 1 TABLET BY MOUTH DAILY tizanidine 2 mg tablet 2 mg PO TID PRN (Reason: muscle spasticity) Qty: 30 0RF ciprofloxacin HCl 500 mg tablet 500 mg PO Q12H Qty: 20 0RF Rx Instructions: STOP TIZANIDINE metronidazole 500 mg tablet 500 mg PO Q12H Qty: 20 0RF Date of admission: 12/09/24 17:22 Primary Care Provider: Per Samson Admitting Provider: Chris Weiss Attending physician on admission: Chris Weiss Condition: Stable
[2024-12-16 12:33] LABS: Soluble Transferrin Receptor 1.43 mg/L (0.76-1.76)
== END 2024-12-16 12:10 | disposition home health service (06) | DRG 441 ==
LOC: ANHED 17:07 → ANH3MEDSUR 18:34
PROVIDERS: Internal Medicine Hematology & Oncology; Physician Assistant; Admitting Provider General Practice; Emergency Provider Emergency Medicine; PCP Family Medicine; Visit Provider Internal Medicine
DX: K75.0 Abscess of liver (principal); E43 Unspecified severe protein-calorie malnutrition; Q39.4 Esophageal web; C79.51 Secondary malignant neoplasm of bone; K57.32 Diverticulitis of large intestine without perforation or abscess without bleeding; N39.0 Urinary tract infection, site not specified; N12 Tubulo-interstitial nephritis, not specified as acute or chronic; N32.1 Vesicointestinal fistula; Z16.12 Extended spectrum beta lactamase (ESBL) resistance; B96.20 Unspecified Escherichia coli [E. coli] as the cause of diseases classified elsewhere; C80.1 Malignant (primary) neoplasm, unspecified; E86.0 Dehydration; E78.5 Hyperlipidemia, unspecified; F17.210 Nicotine dependence, cigarettes, uncomplicated; F41.9 Anxiety disorder, unspecified; F32.A Depression, unspecified; G89.29 Other chronic pain; I10 Essential (primary) hypertension; K21.9 Gastro-esophageal reflux disease without esophagitis; M19.90 Unspecified osteoarthritis, unspecified site; M54.9 Dorsalgia, unspecified; M81.0 Age-related osteoporosis without current pathological fracture; R91.8 Other nonspecific abnormal finding of lung field; R39.89 Other symptoms and signs involving the genitourinary system; Z96.651 Presence of right artificial knee joint; Z68.27 Body mass index [BMI] 27.0-27.9, adult
CPT/HCPCS: 20225; 36415; 36569; 71260; 72197; 74177; 77012; 80053; 81001; 82274; 82607; 82728; 82746; 83010; 83540; 83550; 83605; 83615; 83690; 83735; 83921; 84238; 84443; 84466; 85025; 85027; 85046; 85610; 85652; 85730; 86140; 86304; 87040; 87086; 87186; 88307; 88311; 88342; 96361; 96365; 96375; 96376; 99285; A9270; A9577; C1751; J0696; J1171; J1650; J1836; J2003; J2270; J2405; J2543; J3480; J7030; J7040; Q9967

== ENCOUNTER 2024-12-29 10:23 | Outpatient (CLI) | payer MEDICARE, SELFPAY ==
--- NOTE | ~2024-12-29 | PE_ITS ---
EXAMINATION: PET skull to mid thigh DATE: 12/29/2024 12:38 INDICATION: Secondary malignant neoplasm of bone. TECHNIQUE: Blood glucose level was 84 mg/dL. 9.713 mCi of 18-fluorodeoxyglucose (18-FDG) was administ ered i.v. Low dose computed tomography (CT) images were acquired from the base of the brain to the pr oximal thighs for attenuation correction and anatomic localization. Automated exposure control was em ployed. Dose-length product (DLP) was 1035 mGy-cm. Positron emission tomography (PET) images were acq uired in the same distribution. COMPARISON: CT chest, abdomen, and pelvis 12/09/2024, 11/16/24 FINDINGS: Head/neck: There is an 11 x 14 mm right supraclavicular node with increased activity. There are scatt ered mixed lytic and sclerotic lesions of bone with increased activity. There are changes of anterior and posterior fusion procedures in cervical spine. Chest: The lungs demonstrate mild atelectasis. There are multiple nodules in left lower lobe measurin g up to 10 mm with increased activity. No pleural effusion. The heart size is normal. There are coron nilesh artery calcifications. No pericardial effusion. There is left hilar and mediastinal lymphadenopat hy with increased activity. There is an electronic implant in left anterior chest wall. There are sca ttered mixed lytic and sclerotic lesions of bone with increased activity. Abdomen/pelvis/proximal thighs: There are multiple masses in the liver measuring up to 2.5 cm with in creased activity. There are gallstones in the gallbladder, which is normal in size. The spleen, pancr eas, and adrenal glands are normal. There are cysts in the kidneys measuring up to 2.2 cm on the righ t. There are stones in the kidneys measuring up to 10 mm on the left. There are scattered diverticula in the colon. 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 There are no dilated loops of bowel. The appendix is normal. There are no pathologically enlarged lymph nodes. There is no free intraperitoneal fluid. There are scatte red mixed lytic and sclerotic lesions of bone with increased activity. There are changes of posterior fusion procedure in lumbar spine. IMPRESSION: 1. Left lung nodules, left hilar, mediastinal, and right supraclavicular lymphadenopathy, liver julius s, and bone lesions, consistent with metastatic disease. 2. Chronic sigmoid diverticulitis. Reviewed, dictated and finalized at location A. INSPECTOR IMPRESSION: 1. Left lung nodules, left hilar, mediastinal, and right supraclavicular lympha denopathy, liver masses, and bone lesions, consistent with metastatic disease. 2. Chronic sigmoid diverticulitis.
--- OUTSIDE RECORDS SUMMARY | 2024-12-29 10:45 | XMS_ITS | Referral Summary ---
Author Organization [facility] [address] [place] [address] 162 [address] [place] [address] Care Team Providers Care Comfort Advisor Name Role Phone Per Samson MD Primary Care Provider [phone] Coretta Childers MD Unavailable [phone] Tima Henson MD Unavailable [phone] Encounters Date Type Department Care Team Description 12/26/2024 7:45 AM PUBLIC ADDRESS SYSTEM OPERATOR Ancillary Procedure [facility] Cardiology [address] [place] [address] [place] [phone] NICM (nonischemic cardiomyopathy) (CMS/HCC) (HCC); NSVT (nonsustained ventricular tachycardia) (HCC) 11/25/2024 Telephone [facility] Cardiology [address] [place] [address] [address] [place] [address] Jessica Shoemaker NP 11/18/2024 Orders Only [facility] Cardiology [address] [place] [address] [place] [phone] Vy Pierce MD Status post placement of implantable loop recorder (Primary Dx); Paroxysmal supraventricular tachycardia (HCC); History of radiofrequency ablation (RFA) procedure for cardiac arrhythmia; Syncope and collapse; RVOT ventricular tachycardia (HCC) 11/14/2024 9:15 AM PUBLIC ADDRESS SYSTEM OPERATOR Ancillary Procedure [facility] Cardiology [address] [place] [address] [place] [phone] Status post placement of implantable loop recorder (Primary Dx); NICM (nonischemic cardiomyopathy) (CMS/HCC) (HCC); NSVT (nonsustained ventricular tachycardia) (HCC) 10/28/2024 Telephone [facility] Cardiology [address] [place] [phone] Jessica Shoemaker NP 10/27/2024 1:00 PM PUBLIC ADDRESS SYSTEM OPERATOR Ancillary Procedure [facility] Cardiology [address] [place] [phone] Syncope and collapse (Primary Dx); NICM (nonischemic cardiomyopathy) (CMS/HCC) (HCC); NSVT (nonsustained ventricular tachycardia) (HCC); Status post placement of implantable loop recorder; RVOT ventricular tachycardia (HCC); Paroxysmal supraventricular tachycardia (HCC) 10/27/2024 Orders Only [facility] Cardiology [address] [place] [phone] Jessica Shoemaker NP Dizziness of unknown etiology 10/26/2024 Telephone [facility] Cardiology [address] [place] [phone] Vy Pierce MD 10/19/2024 Orders Only [facility] Health Information Management [address] [place] [address] Jessica Shoemaker NP 10/10/2024 Telephone [facility] Cardiology [address] [place] [phone] Jessica Shoemaker NP Dizziness from Last 3 Months Allergies Active Allergy Reactions Criticality Noted Date Comments Codeine Reynaes Medium Lisinopril Nausea only,Nausea A nd Vomiting Low 08/19/2021 Nausea and abdom pain Nausea and abdom pain Nausea and abdom pain Medications calcium carbonate-vit D3-min 600 mg calcium- 400 unit tablet Take 1 capsule by mouth 2 (two) times a day Active omeprazole (PriLOSEC) 40 mg capsule Take 1 capsule (40 mg total) by mouth 2 (two) times a day Active ogxzmncw-wka-VR-ly copen-lutein 0.4-300-250 mg-mcg-mcg tabletIndications: Vitamin Deficiency Prevention [...] 08/28/2023 Assessment & Plan (09/21/2023 9:12 AM PUBLIC ADDRESS SYSTEM OPERATOR): She is doing pretty well. Feels [...] implantable loop record er 03/07/2022 Overview (03/07/2022): [employer] Bio-monitor III Loop Recorder. Dx; Syncope, PSVT, AT, RVOT VT s/p ablation. DOI 03/05/2022-[facility]. Emberronik remote monitoring. Dizziness 08/19/2021 Lower extremity edema [...] (10/26/2020): Added automatically from request for surgery [id number] Migraine 08/10/2020 Assessment & Plan (08/10/2020 2:22 [...] neuralgia. Assessment & Plan (11/30/2019 1:53 PM PUBLIC ADDRESS SYSTEM OPERATOR): Ms. Palma has occipital neuralgia with [...] less. Assessment & Plan (10/02/2020 1:29 PM PUBLIC ADDRESS SYSTEM OPERATOR): Ms. Palma continues to do well clinically after posterior lumbar decompression fusion at L4-5. She has good alignment. There is no lucency around the hardware. We will continue to follow this over time. Assessment & Plan (11/30/2019 1:51 PM PUBLIC ADDRESS SYSTEM OPERATOR): Ms. Palma reports persistent numbness in [...] (05/20/2019): Added automatically from request for surgery [id number] Assessment & Plan (01/22/2023 12:27 PM CDT): [...] physician. Assessment & Plan (01/08/2021 12:53 PM PUBLIC ADDRESS SYSTEM OPERATOR): Ms. Palma does not have pain [...] time. Assessment & Plan (10/02/2020 1:29 PM PUBLIC ADDRESS SYSTEM OPERATOR): Ms. Palma was improved after cervical [...] hour to stretch. FOLLOW UP APPT: With EDIPHONE OPERATOR in 4 weeks with AP/LAT Cervical spine films. Assessment & Plan (11/24/2018 11:40 AM PUBLIC ADDRESS SYSTEM OPERATOR): Patient has new onset symptoms of [...] patient to schedule on her own at [facility] [place]. We will await the CD to be mailed to our office for Dr. Palmer to review and provide further recommendations. She is to continue the same activity restrictions as outlined prior to surgery. Neuropathic pain 11/24/2018 Assessment & Plan (11/24/2018 11:42 AM PUBLIC ADDRESS SYSTEM OPERATOR): For her neuropathic pain and would [...] (12/16/2018): Added automatically from request for surgery [id number] Cervical spinal stenosis 09/27/2018 Overview (09/27/2018): Added automatically from request for surgery [id number] HNP (herniated nucleus pulposus), lumbar 07/13/2018 03/02/2019 Overview (07/13/2018): Added automatically from request for surgery [id number] Immunizations Immunization Administration Dates Next Due Pfizer SARS-CoV-2 Monovalent [...] on file Legal Sex Female 11:06 AM PUBLIC ADDRESS SYSTEM OPERATOR Gender Identity Not on file Sexual Orientation Not on file Last Filed Vital Signs Vital Sign Reading Time Taken Comments Blood Pressure 112/64 09/26/2024 8:40 AM PUBLIC ADDRESS SYSTEM OPERATOR Pulse 105 09/26/2024 8:40 AM PUBLIC ADDRESS SYSTEM OPERATOR Temperature 36.4 C (97.5 F) 09/07/2023 10:05 AM CDT Respiratory Rate 18 09/15/2023 9:25 AM PUBLIC ADDRESS SYSTEM OPERATOR Oxygen Saturation 97% 09/26/2024 8:40 AM PUBLIC ADDRESS SYSTEM OPERATOR Inhaled Oxygen Concentration - - Weight 77.1 kg (170 lb) 09/26/2024 8:40 AM PUBLIC ADDRESS SYSTEM OPERATOR Height 154.9 cm (5' 1 ) 09/26/2024 8:40 AM PUBLIC ADDRESS SYSTEM OPERATOR Body Mass Index 32.12 09/26/2024 8:40 AM PUBLIC ADDRESS SYSTEM OPERATOR Plan of Treatment Not on file Medical Devices Implanted Type Area Technical Services Consultant Device Identifier Shelf Expiration Date Model / Serial / Lot Loop Recorder Biotronik Biomonitor Iii-Left Upper Chest Chest Knee Arthroplasty Right: Knee Left Lower Leg Hardware From Fracture Left: Leg [employer] Inc Os-201 Hemasorb Spatula Wax 2gm Bone Sterile - [id number] Implanted:Qty: 1 on 10/15/2018 by Elvin Palmer MD at [facility] N/A: Spine Cervical [employer] Inc 10/08/2020 OS-201 / / [id number] [employer] 3d Cervical 14.9m81m6jo 7 Deg - [id number] Implanted:Qty: 1 on 10/15/2018 by Elvin Palmer MD at [facility] N/A: Spine Cervical Core Link [id number] 12/02/2022 [id number] / / [id number] Core Link Anodyne 12mm Level 1 Spine Cervical Anterior Plate Bone - [id number] Implanted:Qty: 1 on 10/15/2018 by Elvin Palmer MD at [facility] N/A: Spine Cervical Core Link / / Core Link Anodyne 4mm 14mm Variable Angle Self Tap Spine Cervical Screw - [id number] Implanted:Qty: 4 on 10/15/2018 by Elvin Palmer MD at [facility] N/A: Spine Cervical Core Link / / Screw Bone Biased Angle L14 Mm Od3.5 Mm Cephelad Caudal Nonsterile Posterior Occipital Cervical Thoracic System 3500 Series - [id number] Implanted:Qty: 4 on 01/20/2019 by Elvin Palmer MD at [facility] N/A: Spine Cervical Core Link 72184-64 / / Screw Set Spinal 3500 Series - [id number] Implanted:Qty: 4 on 01/20/2019 by Elvin Palmer MD at [facility] N/A: Spine Cervical Core Link 18052-76 / / Core Link [id number] [place] 3.5mm 50mm Line Prebent Jin Spinal Nonsterile 3500 Series - [id number] Implanted:Qty: 1 on 01/20/2019 by Elvin Palmer MD at [facility] N/A: Spine Cervical Core Link [id number] / / Core Link 56356-33 [place] Screw Set 5500 Series - Sna - [id number] Implanted:Qty: 4 on 06/20/2019 by Elvin Palmer MD at [facility] N/A: Back Core Link 49203-01 / NA / Core Link [id number] [place] 5.5mm 35mm Line Prebent Jin Spinal Nonsterile 5500 Series - Sns - [id number] Implanted:Qty: 2 on 06/20/2019 by Elvin Palmer MD at [facility] N/A: Back Core Link [id number] / NS / Bott[employer] [id number] Inqu Paste Mix Plus Pie Filling Mixer 10cc Bone Graft Hyaluronic Acid Poly - Sna - [id number] Implanted:Qty: 1 on 06/20/2019 by Elvin Palmer MD at [facility] N/A: [employer] [id number] 01/19/2021 [id number] / NA / [id number] Core Link 60426-36 [place] 6.5mm 40mm Spine Pedicle Screw Bone 5500 Series - Sna - [id number] Implanted:Qty: 4 on 06/20/2019 by Elvin Palmer MD at [facility] N/A: Back Core Link 08626-30 / NA / Cerapedics Inc 700-025 I Factor Allograft Putty Syringe Graft 2.5cc Bone - [id number] Implanted:Qty: 1 on 11/26/2020 by Elvin Palmer MD at [facility] N/A: Spine Cervical [employer] Inc 09/08/2023 700-025 / / [id number] [employer] 3d Cervical 14.5e54g7vc 7 Deg - [id number] Implanted:Qty: 1 on 11/26/2020 by Elvin Palmer MD at [facility] N/A: Spine Cervical Core Link 10/25/2024 [id number] / / [id number] Core Link Anodyne 12mm Level 1 Spine Cervical Anterior Plate Bone - [id number] Implanted:Qty: 1 on 11/26/2020 by Elvin Palmer MD at [facility] N/A: Spine Cervical Core Link / / Core Link Anodyne 4mm 14mm Variable Angle Self Tap Spine Cervical Screw - [id number] Implanted:Qty: 4 on 11/26/2020 by Elvin Palmer MD at [facility] N/A: Spine Cervical Core Link / / Procedures Procedure Name Priority Date/Time Associated Diagnosis Comments DEVICE CHECK - REMOTE Routine 11/18/2024 12:03 PM PUBLIC ADDRESS SYSTEM OPERATOR NICM (nonischemic cardiomyopathy) (CMS/HCC) (HCC) NSVT (nonsustained ventricular tachycardia) ([facility]) DEVICE CHECK - REMOTE Routine 10/27/2024 6:13 PM PUBLIC ADDRESS SYSTEM OPERATOR NICM (nonischemic cardiomyopathy) (CMS/HCC) (HCC) NSVT (nonsustained ventricular tachycardia) (HCC) SCAN - RADIOLOGY/IMAGING 10/19/2024 HEPATITIS C ANTIBODY STAT 10/15/2018 11:20 AM PUBLIC ADDRESS SYSTEM OPERATOR from Last 3 Months or Most Recently Relevant to Health Maintenance Results * DEVICE CHECK - REMOTE (11/18/2024 12:03 PM PUBLIC ADDRESS SYSTEM OPERATOR) Anatomical Region Laterality Modality Other Narrative 12/08/2024 3:50 PM PUBLIC ADDRESS SYSTEM OPERATOR Biotronik lllm implanted on March 05, 2022 for syncope. Patient had a routine remote transmission on November 14, 2024 Medications: Norvasc 5 mg daily Interrogation of the patients device demonstrates appropriate loop function (0) Symptom events Auto Device detected events of, (0) Pause, (0) Bradycardia, (6) Tachy, all show SVT longest detected November 07 at 5:17 a.m., 2 minutes 34 seconds in duration (0) AT, (0) AF, Presenting Rhythm: Sinus tachycardia at 100 bpm Battery: OK at 50% Plan: 1) Scheduled routine remote with Tachy episode. 2) Continue to monitor remotely. Bandar Jordan Device Aircraft Structural Repairer [facility] Chelly Pierce MD [facility] PRO CEDURES Final Result * DEVICE CHECK - REMOTE (10/27/2024 6:13 PM PUBLIC ADDRESS SYSTEM OPERATOR) Anatomical Region Laterality Modality Other Narrative 10/28/2024 8:21 AM PUBLIC ADDRESS SYSTEM OPERATOR [employer] Bio-monitor III Loop Recorder. Dx; Syncope, PSVT, AT, RVOT VT s/p ablation. DOI 03/05/2022-[facility]. Biotronik remote monitoring. Unscheduled ILR remote due [...] remote f/u 11/14/2024. Shelley Looney RN us [facility] Chelly Pierce MD CV CARDIAC SERVICES PRO CEDURES Final Result * SCAN - RADIOLOGY/IMAGING (10/19/2024) Anatomical Region Laterality Modality Other us Jessica Shoemaker EDIPHONE OPERATOR Final Res ult * Hepatitis C antibody (10/15/2018 11:20 AM PUBLIC ADDRESS SYSTEM OPERATOR) Hep C Ab Non-Reactiv e Non-Reactiv e [facility] Blood specimen (specimen) 10/15/2018 11:20 AM PUBLIC ADDRESS SYSTEM OPERATOR 10/15/2018 11:41 AM PUBLIC ADDRESS SYSTEM OPERATOR Narrative [facility] - 10/15/2018 12:25 PM PUBLIC ADDRESS SYSTEM OPERATOR us Notinfile Unknown LAB MICROBIOLOGY - GENERAL ORD ERABLES Final Result [facility] [address] Department [place] [address] from Last 3 Months or Most Recently Relevant to Health Maintenance Insurance MEDICARE AETNA MEDICARE AETNA MEDICARE AETNA SENIOR SUPPLEMENT Advance Directives For more information, please contact: [phone] * Full Code (Latest Code Status on File) Date Activated Date Inactivated Comments 09/07/2023 10:10 AM 09/07/2023 2:44 PM * Full Code Date Activated Date Inactivated Comments 06/20/2019 12:01 PM 06/20/2019 6:34 PM * Full Code Date Activated Date Inactivated Comments 10/15/2018 2:08 PM 10/15/2018 4:39 PM * Full Code Date Activated Date Inactivated Comments 07/16/2018 2:30 PM 07/16/2018 6:36 PM Care Teams Comfort Advisor Relationship Specialty Start Date End Date Per Samson MD PCP - General Family Practice 06/01/23 Coretta Childers MD Consulting Physician Cardiology 08/28/23 Tima Henson MD [address] [place] [address] Consulting Physician Otolaryngology 08/28/23
--- OUTSIDE RECORDS SUMMARY | 2024-12-29 10:45 | XMS_ITS | Referral Summary ---
Author Organization [facility] Address [address] [place] [address] Care Team Providers Care Scalp Specialist Name Role Phone Edy Aviles DO Primary Care Provider [phone] Source Comments [facility],non-owned Affiliates and Associated Physician Practices is amultiple site organization consisting of ambulatory clinics and hospital sitesin [place], [place], [place] and [place]. This disclosure is being madepursuant to the Care Everywhere program and may not contain all information available regarding this patient. Last updated 18.[facility] Allergies Active Allergy Reactions Criticality Noted [...] Immunizations Name Administration Dates Next Due Ian Netlift primary monoval ent 12+ yr 0.3mL Purple cap 09/08/2021,03/05/2021,02/05/2021 Social History Tobacco Use Types Packs/Day Years Used Date Smoking Tobacco: Every Day Cigarettes 0.5 52.2 Started: 10/25/1972 Smokeless Tobacco: Never Tobacco Cessation:Ready [...] Comments Blood Pressure 148/57 10/26/2021 7:27 AM WORKERS COMPENSATION ADJUSTER Pulse 95 10/26/2021 7:27 AM WORKERS COMPENSATION ADJUSTER Temperature 36.8 C (98.3 F) 10/26/2021 7:27 AM WORKERS COMPENSATION ADJUSTER Respiratory Rate 16 10/25/2021 10:58 PM WORKERS COMPENSATION ADJUSTER Oxygen Saturation 100% 10/26/2021 7:27 AM WORKERS COMPENSATION ADJUSTER Inhaled Oxygen Concentration 40% 10/25/2021 1 2:10 PM WORKERS COMPENSATION ADJUSTER Weight 85.7 kg (189 lb) 07/08/2022 9:04 [...] 3-4 weeks. Medical Devices Implanted Type Area Poker Supervisor Device Identifier Shelf Expiration Date Model / Serial / Lot Pin Hlf 255mm 5mm Jtx Lng Ss 35mm Extfix Implanted:Qty: 2 on 10/11/2021 by Jovon Maloney, DO at [facility] Left: Tibia [employer] [id number] / / Pin Hlf 40mm 5mm Jtx Lng Ti Ntrd Extfix Implanted:Qty: 2 on 10/11/2021 by Jovon Maloney, DO at [facility] Left: [employer] [id number] / / Bar Extfix 200mm Jtx Cfbr Nonster Disp Implanted:Qty: 2 on 10/11/2021 by Jovon Maloney, DO at [facility] Left: [employer] [id number] / / Screw 3.5mm 46mm Ft Hex Drv Nlckg Fly Implanted:Qty: 1 on 10/25/2021 by Jovon Maloney, DO at [facility] Left: Tibia Teresa [employer] 8150-37-046 / / Screw 3.5mm 50mm Ft Nonlock Hex Drv Elb Implanted:Qty: 2 on 10/25/2021 by Jovon Maloney, DO at [facility] Left: Tibia [employer] 8150-37-050 / / Screw 3.5mm 55mm Ft Slf-Tap Hex Lopro Implanted:Qty: 1 on 10/25/2021 by Jovon Maloney, DO at [facility] Left: [employer]ia [employer] 8150-37-055 / / Screw 3.5mm 65mm T15 Lck Slf-Tap Tip Tpr Implanted:Qty: 3 on 10/25/2021 by Jovon Maloney, DO at [facility] Left: [employer]ia [employer] 8161-35-065 / / Screw 3.5mm 70mm T15 Lck Slf-Tap Tip Tpr Implanted:Qty: 2 on 10/25/2021 by Jovon Maloney, DO at [facility] Left: Tibia [employer] [id number] / / Plate 5 Hl Lck Lopro Dist Blt Tip Tib Lt Implanted:Qty: 1 on 10/25/2021 by Jovon Maloney, DO at [facility] Left: [employer] 8162-35-705 / / Screw 3.5mm 65mm 2.2mm Mldir Lck Sq Drv Implanted:Qty: 1 on 10/25/2021 by Jovon Maloney, DO at [facility] Left: [employer]ia [employer] [id number] / / Screw 3.5mm 80mm Sq Drv Nonlock Lopro Implanted:Qty: 1 on 10/25/2021 by Jovon Maloney, DO at [facility] Left: [employer] 1312-18-080 / / Screw 3.5mm 75mm T15 Lck Slf-Tap Tip Tpr Implanted:Qty: 1 on 10/25/2021 by RevJovon roa DO at [facility] Left: [employer] 8161-35-075 / / Plate 5 Hl Lopro Lck Cha Marquez Dist 61 Implanted:Qty: 1 on 10/25/2021 by Jovon Maloney DO at [facility] Left: Tibia [employer] 84475-8 / / Screw 3.5mm 34mm Ft Nonlock Hex Drv Elb Implanted:Qty: 1 on 10/25/2021 by Jovon Maloney DO at [facility] Left: [employer] 8150-37-034 / / Screw 3.5mm 38mm Ft Slf-Tap Hex Lopro Implanted:Qty: 1 on 10/25/2021 by Jovon Maloney DO at [facility] Left: [employer] 8150-37-038 / / Screw 3.5mm 40mm Ft Slf-Tap Hex Lopro Implanted:Qty: 1 on 10/25/2021 by Jovon Maloney DO at [facility] Left: [employer]ia [employer] 8150-37-040 / / Explanted Type Area Poker Supervisor Device Identifier Shelf Expiration Date Model / Serial / Lot Clamp Extfix Jtx 10.5mm Bar To Bar Mr Sf Explanted:Qty: 2 on 10/11/[address] [facility] Left: [employer] [id number] / / Screw 3.5mm 55mm Ft Slf-Tap Hex Lopro Explanted:Qty: 1 on 10/25/2021 by Jovon Maloney DO at [facility] Left: [employer] 8150-37-055 / / Wire K 1.6mm 6in Hlf Bynt Pnt Ss Fx Explanted:Qty: 4 on 10/25/2021 by Jovon Maloney DO at [facility] Left: [employer]ia [employer] [id number] / / Screw 3.5mm 36mm Ft Slf-Tap Hex Lopro Explanted:Qty: 1 on 10/25/2021 by Jovon Maloney DO at [facility] Left: Tibia [employer] [id number] / / Procedures Procedure Name Priority Date/Time Associated Diagnosis Comments BASIC METABOLIC PANEL (CALCIUM TOTAL) Routine 10/26/2021 2:31 AM WORKERS COMPENSATION ADJUSTER Closed fracture of left tibial plateau, initial encounter from Last 3 Months or Most Recently Relevant to Health Maintenance Results * (ABNORMAL) BASIC METABOLIC PANEL (CALCIUM TOTAL) (10/26/2021 2:31 AM WORKERS COMPENSATION ADJUSTER) BUN 14 7 - 26 mg/dL 10/26/2021 3:29 AM [facility] Creatinine 0.95 0.56 - 0.96 mg/dL 10/26/2021 3:29 AM [facility] Sodium 134(L) 136 - 145 mmol/L 10/26/2021 3:29 AM [facility] Potassium 4.2 3.5 - 4.5 mmol/L 10/26/2021 3:29 AM [facility] Chloride 102 98 - 107 mmol/L 10/26/2021 3:29 AM [facility] CO2 25 22 - 29 mmol/L 10/26/2021 3:29 AM [facility] Glucose 106 70 - 115 mg/dL 10/26/2021 3:29 AM [facility] Calcium 8.9 8.4 - 10.2 mg/dL 10/26/2021 3:29 AM [facility] Anion Gap 11 8 - 18 10/26/2021 3:29 AM [facility] BUN/Creatinine Ratio 15 7 - 23 10/26/2021 3:29 AM [facility] Osmolality Calculated 279 270 - 300 mOsm/kg 10/26/2021 3:29 AM [facility] eGFR by CKD-EPI 63(L) >=90 mL/min/1.7 3 m2 10/26/2021 3:29 AM [facility] Blood BLOOD SPECIMEN / Unknown Lab Venipuncture / Unknown 10/26/2021 2:31 AM WORKERS COMPENSATION ADJUSTER 10/26/2021 3:01 AM [facility] Jovon Maloney DO LAB - CHEMISTRY [facility] [address] [place] [address], [facility] [phone] from Last 3 Months or Most Recently Relevant to Health Maintenance Advance Directives * Full Code (Latest Code Status on File) Date Activated Date Inactivated Comments 10/25/2021 1:30 PM 10/26/2021 1:32 PM * Full Code Date Activated Date Inactivated Comments 10/11/2021 12:36 PM 10/15/2021 3:44 PM Care Teams Scalp Specialist Relationship Specialty Start Date End Date Edy Aviles DO [address] [place] [address] PCP - General 06/17/22
--- OUTSIDE RECORDS SUMMARY | 2024-12-29 10:45 | XMS_ITS | Clinical Summary ---
Author Organization [facility] Address [address] [place] [address] Care Team Providers Care Three Knife Trimmer Name Role Phone Edy Aviles DO Primary Care Provider [phone] Source Comments [facility],non-owned Affiliates and Associated Physician Practices is amultiple site organization consisting of ambulatory clinics and hospital sitesin [place], [place] and [place]. This disclosure is being madepursuant to the Care Everywhere program and may not contain all information available regarding this patient. Last updated 18.[facility] Allergies Active Allergy Reactions Criticality Noted Date [...] Immunizations Name Administration Dates Next Due Ian Percello primary monoval ent 12+ yr 0.3mL Purple [...] Comments Blood Pressure 148/57 10/26/2021 7:27 AM SHEEP [facility]ARER Pulse 95 10/26/2021 7:27 AM [facility]EP [facility] Temperature 36.8 C (98.3 F) 10/26/2021 7:27 AM [facility]EP [facility] Respiratory Rate 16 10/25/2021 10:58 PM SHEEP [facility]ARER Oxygen Saturation 100% 10/26/2021 7:27 AM [facility]EP [facility] Inhaled Oxygen Concentration 40% 10/25/2021 1 2:10 PM [facility]EP [facility] Weight 85.7 kg (189 lb) 07/08/2022 9:04 [...] LIPID TESTING 1955 MAMMOGRAM 1955 MEDICARE AWV 12 MONTHS 1955 HEPATITIS C SCREENING 09/06/1974 [...] Recent Progress Patient-Stated? Author Mobility General Nancy Curry RN Note: Expected end date: 3 months The goal is to maintain or improve your mobility at the optimum level for you. Interventions: Will be compliant with progressive WB to LLE, full weight in 3-4 weeks. Medical Devices Implanted Type Area Field Sales Manager Device Identifier Shelf Expiration Date Model / Serial / Lot Pin Hlf 255mm 5mm Jtx Lng Ss 35mm Extfix Implanted:Qty: 2 on 10/11/2021 by Jovon Maloney, DO at [facility] Left: [employer] [id number] / / Pin Hlf 40mm 5mm Jtx Lng Ti Ntrd Extfix Implanted:Qty: 2 on 10/11/2021 by Jovon Maloney, DO at [facility] Left: [employer] [id number] / / Bar Extfix 200mm Jtx Cfbr Nonster Disp Implanted:Qty: 2 on 10/11/2021 by Jovon Maloney, DO at [facility] Left: [employer] [id number] / / Screw 3.5mm 46mm Ft Hex Drv Nlckg Fly Implanted:Qty: 1 on 10/25/2021 by Jovon Maloney, at [facility] Left: [employer] 8150-37-046 / / Screw 3.5mm 50mm Ft Nonlock Hex Drv Elb Implanted:Qty: 2 on 10/25/2021 by Jovon Maloney DO at [facility] Left: [employer] 8150-37-050 / / Screw 3.5mm 55mm Ft Slf-Tap Hex Lopro Implanted:Qty: 1 on 10/25/2021 by Jovon Maloney, DO at [facility] Left: [employer] 8150-37-055 / / Screw 3.5mm 65mm T15 Lck Slf-Tap Tip Tpr Implanted:Qty: 3 on 10/25/2021 by Jovon Maloney DO at [facility] Left: [employer] 8161-35-065 / / Screw 3.5mm 70mm T15 Lck Slf-Tap Tip Tpr Implanted:Qty: 2 on 10/25/2021 by Jovon Maloney, at [facility] Left: [employer] [id number] / / Plate 5 Hl Lck Lopro Dist Blt Tip Tib Lt Implanted:Qty: 1 on 10/25/2021 by Jovon Maloney, at [facility] Left: [employer] 8162-35-705 / / Screw 3.5mm 65mm 2.2mm Mldir Lck Sq Drv Implanted:Qty: 1 on 10/25/2021 by Jovon Maloney, at [facility] Left: [employer] [id number] / / Screw 3.5mm 80mm Sq Drv Nonlock Lopro Implanted:Qty: 1 on 10/25/2021 by Jovon Maloney DO at [facility] Left: [employer] 1312-18-080 / / Screw 3.5mm 75mm T15 Lck Slf-Tap Tip Tpr Implanted:Qty: 1 on 10/25/2021 by Jovon Maloney DO at [facility] Left: [employer] 8161-35-075 / / Plate 5 Hl Lopro Lck Ulna Olcrn Dist 61 Implanted:Qty: 1 on 10/25/2021 by Jovon Maloney DO at [facility] Left: [employer] [id number] / / Screw 3.5mm 34mm Ft Nonlock Hex Drv Elb Implanted:Qty: 1 on 10/25/2021 by Jovon Maloney DO at [facility] Left: [employer] 8150-37-034 / / Screw 3.5mm 38mm Ft Slf-Tap Hex Lopro Implanted:Qty: 1 on 10/25/2021 by Jovon Maloney DO at [facility] Left: [employer] 8150-37-038 / / Screw 3.5mm 40mm Ft Slf-Tap Hex Lopro Implanted:Qty: 1 on 10/25/2021 by Jovon Maloney DO at [facility] Left: [employer] 8150-37-040 / / Explanted Type Area Field Sales Manager Device Identifier Shelf Expiration Date Model / Serial / Lot Clamp Extfix Jtx 10.5mm Bar To Bar Mr Buitrago Explanted:Qty: 2 on 10/11/2021 at [facility] Left: [employer] [id number] / / Screw 3.5mm 55mm Ft Slf-Tap Hex Lopro Explanted:Qty: 1 on 10/25/2021 by Jovon Maloney DO at [facility] Left: [employer] 8150-37-055 / / Wire K 1.6mm 6in Hlf By Pnt Ss Fx Explanted:Qty: 4 on 10/25/2021 by Jovon Maloney DO at [facility] Left: [employer] [id number] / / Screw 3.5mm 36mm Ft Slf-Tap Hex Lopro Explanted:Qty: 1 on 10/25/2021 by Jovon Maloney DO at [facility] Left: [employer] [id number] / / Procedures Procedure Name Priority Date/Time Associated Diagnosis Comments BASIC METABOLIC PANEL (CALCIUM TOTAL) Routine 10/26/2021 2:31 AM [facility] Closed fracture of left tibial plateau, initial encounter from Last 3 Months or Most Recently Relevant to Health Maintenance Results * (ABNORMAL) BASIC METABOLIC PANEL (CALCIUM TOTAL) (10/26/2021 2:31 AM SHEEP SHEARER) BUN 14 7 - 26 mg/dL 10/26/2021 3:29 AM [facility]3] [facility] Creatinine 0.95 0.56 - 0.96 mg/dL 10/26/2021 3:29 AM [facility]3] [facility] Sodium 134(L) 136 - 145 mmol/L 10/26/2021 3:29 AM [facility]3] [facility] Potassium 4.2 3.5 - 4.5 mmol/L 10/26/2021 3:29 AM [facility]3] [facility] Chloride 102 98 - 107 mmol/L 10/26/2021 3:29 AM [facility] H[facility]PITAL CO2 25 22 - 29 mmol/L 10/26/2021 3:29 AM [facility]3] [facility] Glucose 106 70 - 115 mg/dL 10/26/2021 3:29 AM [facility] Calcium 8.9 8.4 - 10.2 mg/dL 10/26/2021 3:29 AM [facility] Anion Gap 11 8 - 18 10/26/2021 3:29 AM [facility] BUN/Creatinine Ratio 15 7 - 23 10/26/2021 3:29 AM [facility] Osmolality Calculated 279 270 - 300 mOsm/kg 10/26/2021 3:29 AM [facility] eGFR by CKD-EPI 63(L) >=90 mL/min/1.7 3 m2 10/26/2021 3:29 AM [facility] Blood BLOOD SPECIMEN / Unknown Lab Venipuncture / Unknown 10/26/2021 2:31 AM [facility] 10/26/2021 3:[address] [facility] Jovon Maloney DO LAB - CHEMISTRY JOCELYNN GARCIA [facility] [address] [place] [address], [facility] [phone] from Last 3 Months or Most Recently Relevant to Health Maintenance Advance Directives * Full Code (Latest Code Status on File) Date Activated Date Inactivated Comments 10/25/2021 1:30 PM 10/26/2021 1:32 PM * Full Code Date Activated Date Inactivated Comments 10/11/2021 12:36 PM 10/15/2021 3:44 PM Care Teams Three Knife Trimmer Relationship Specialty Start Date End Date Edy Aviles DO [address] [place], [place] [id number] PCP - General 06/17/22
--- OUTSIDE RECORDS SUMMARY | 2024-12-29 10:45 | XMS_ITS | Patient Health Summary ---
Author Organization [facility] Address [address] [place] [place] [address] Care Team Providers Care Dip Painter Name Role Phone Edy Aviles DO Primary Care Provider [phone] Note from [facility],non-owned Affiliates and Associated Physician Practices is amultiple site organization consisting of ambulatory clinics and hospital sitesin [place], [place], [place] and [place]. This disclosure is being madepursuant to the Care Everywhere program and may not contain all information available regarding this patient. Last updated 18.[facility] Allergies * Codeine(Urticaria,Nausea and/or Vomiting) -Medium Criticality [...] Comments Blood Pressure 148/57 10/26/2021 7:27 AM GEOTHERMAL POWERPLANT MECHANIC HELPER Pulse 95 10/26/2021 7:27 AM GEOTHERMAL POWERPLANT MECHANIC HELPER Temperature 36.8 C (98.3 F) 10/26/2021 7:27 AM GEOTHERMAL POWERPLANT MECHANIC HELPER Respiratory Rate 16 10/25/2021 10:58 PM GEOTHERMAL POWERPLANT MECHANIC HELPER Oxygen Saturation 100% 10/26/2021 7:27 AM GEOTHERMAL POWERPLANT MECHANIC HELPER Inhaled Oxygen Concentration 40% 10/25/2021 1 2:10 PM GEOTHERMAL POWERPLANT MECHANIC HELPER Weight 85.7 kg (189 lb) 07/08/2022 9:04 AM CDT Height 156.2 cm (5' 1.5 ) 07/08/2022 9:04 AM CDT Body Mass Index 35.13 07/08/2022 9:04 AM CDT Medical Devices Implanted Type Area Healthcare Business Analyst Device Identifier Shelf Expiration Date Model / Serial / Lot Pin Hlf 255mm 5mm Jtx Lng Ss 35mm Extfix Implanted:Qty: 2 on 10/11/2021 by Jovon Maloney DO at [facility] Left: [employer] [id number] / / Pin Hlf 40mm 5mm Jtx Lng Ti Ntrd Extfix Implanted:Qty: 2 on 10/11/2021 by Jovon Maloney DO at [facility] Left: [employer] [id number] / / Bar Extfix 200mm Jtx Cfbr Nonster Disp Implanted:Qty: 2 on 10/11/2021 by Jovon Maloney DO at [facility] Left: [employer] [id number] / / Screw 3.5mm 46mm Ft Hex Drv Nlckg Fly Implanted:Qty: 1 on 10/25/2021 by Jovon Maloney DO at [facility] Left: [employer]ia [employer] [id number] / / Screw 3.5mm 50mm Ft Nonlock Hex Drv Elb Implanted:Qty: 2 on 10/25/2021 by Jovon Maloney DO at [facility] Left: [employer] [id number] / / Screw 3.5mm 55mm Ft Slf-Tap Hex Lopro Implanted:Qty: 1 on 10/25/2021 by Jovon Maloney DO at [facility] Left: [employer] [id number] / / Screw 3.5mm 65mm T15 Lck Slf-Tap Tip Tpr Implanted:Qty: 3 on 10/25/2021 by Jovon Maloney DO at [facility] Left: [employer] [id number] / / Screw 3.5mm 70mm T15 Lck Slf-Tap Tip Tpr Implanted:Qty: 2 on 10/25/2021 by Jovon Maloney, DO at [facility] Left: [employer] [id number] / / Plate 5 Hl Lck Lopro Dist Blt Tip Tib Lt Implanted:Qty: 1 on 10/25/2021 by Jovon Maloney, DO at [facility] Left: [employer] [id number] / / Screw 3.5mm 65mm 2.2mm Mldir Lck Sq Drv Implanted:Qty: 1 on 10/25/2021 by Jovon Maloney, DO at [facility] Left: [employer] [id number] / / Screw 3.5mm 80mm Sq Drv Nonlock Lopro Implanted:Qty: 1 on 10/25/2021 by Jovon Maloney, DO at [facility] Left: [employer] [id number] / / Screw 3.5mm 75mm T15 Lck Slf-Tap Tip Tpr Implanted:Qty: 1 on 10/25/2021 by Jovon Maloney, DO at [facility] Left: [employer] [id number] / / Plate 5 Hl Lopro Lck Ulna Olcrn Dist 61 Implanted:Qty: 1 on 10/25/2021 by Jovon Maloney, DO at [facility] Left: [employer] [id number] / / Screw 3.5mm 34mm Ft Nonlock Hex Drv Elb Implanted:Qty: 1 on 10/25/2021 by Jovon Maloney, DO at [facility] Left: [employer] [id number] / / Screw 3.5mm 38mm Ft Slf-Tap Hex Lopro Implanted:Qty: 1 on 10/25/2021 by Jovon Maloney, DO at [facility] Left: [employer] [id number] / / Screw 3.5mm 40mm Ft Slf-Tap Hex Lopro Implanted:Qty: 1 on 10/25/2021 by Jovon Maloney, DO at [facility] Left: [employer] [id number] / / Explanted Type Area Healthcare Business Analyst Device Identifier Shelf Expiration Date Model / Serial / Lot Clamp Extfix Jtx 10.5mm Bar To Bar Mr Buitrago Explanted:Qty: 2 on 10/11/2021 at [facility] Left: [employer] [id number] / / Screw 3.5mm 55mm Ft Slf-Tap Hex Lopro Explanted:Qty: 1 on 10/25/2021 by Jovon Maloney DO at [facility] Left: [employer] 8150-37-055 / / Wire K 1.6mm 6in Hlf Bynt Pnt Ss Fx Explanted:Qty: 4 on 10/25/2021 by Jovon Maloney DO at [facility] Left: [employer] [id number] / / Screw 3.5mm 36mm Ft Slf-Tap Hex Lopro Explanted:Qty: 1 on 10/25/2021 by Jovon Maloney DO at [facility] Left: [employer] [id number] / / Procedures * DERMATOPATHOLOGY(Performed 02/23/2024) * [...] period is included. Case Report Dermatopathology Report Case: [id number] Authorizing Provider: Israel Lang MD Collected: 02/23/2024 12:00 AM Ordering Location: [facility] - Received: 02/25/2024 06:55 AM DermPath Lab Pathologist: Maryanne Olmos MD Specimens: A) - Skin, right paranasal cheek B) - Skin, right cheek C) - Skin, right parietal scalp 1:[address] [facility] DERMATOPATHOLOGY LABORATORY Final Diagnosis Specimen A. 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 SKIN, right parietal scalp: NEUROFIBROMA (D36.10) 1:[address] [facility] DERMATOPATHOLOGY LABORATORY Clinical History A: R/O BCC vs other B: R/O BCC vs other C: R/O BCC 1:[address] [facility] DERMATOPATHOLOGY LABORATORY Gross Description Specimen A: [...] five pieces in aggregate shave biopsy measuring 05s16m6 mm. Jar 0. 1:[address] [facility] DERMATOPATHOLOGY LABORATORY Microscopic Description Specimen A. [...] collagen is delicate and pale. 1:[address] [facility] DERMATOPATHOLOGY LABORATORY Disclaimer An external and internal positive and negative controls are appropriate for the histochemical, immunohistochemical and immunofluorescence stain(s) in this case (if any), except where stated explicitly. The performance characteristics of the stain(s) cited in this report were developed and its performance characteristic determined by the Dermatopathology Laboratory at [facility], directed by Dr. Yessi Jackman. These tests need not be, and therefore are not, approved by the [place] Food and Drug Administration. The tests are used for clinical purposes. Billing Codes Specimen Charges Stain Charges 22025 70351 [id number] 1 1 1 4 1:41 PM CDT [...] LAB - PATHOLOGY/CYTO LOGY ORDERABLES DERMATOPATHOLOGY LABORATORY [facility] - Department of Dermatology [address], [address] [phone] * XR KNEE LEFT 3VW (07/08/2022 9:02 AM CDT) Only the most recent of9 resultswithin the time period is included. Anatomical Region Laterality Modality Lower Extremity Radiographic Courtney ging 07/08/2022 9:33 AM CDT Impressions 07/08/2022 9:41 AM CDT IMPRESSION: Unchanged fracture alignment. > Dictated by Ramonita Hernandez M.D. (human resources vice president). I, Tramaine Ceron MD have personally reviewed and interpreted this examination/study. > Interpreting Provider: Tramaine Ceron MD on 07/08/2022 9:41 AM Narrative 07/08/2022 9:41 AM CDT PROCEDURE: XR KNEE LEFT 3VW, DATE/TIME OF EXAM: 07/08/2022 9:02 AM, LOCATION [facility] INDICATION: S82.142D: Closed fracture of left tibial [...] DATE/TIME OF EXAM: 07/08/2022 9:02 AM, LOCATION [facility] INDICATION: S82.142D: Closed fracture of left tibial [...] alignment. > Dictated by Ramonita Hernandez M.D. (human resources vice president). I, Tramaine Ceron MD have personally reviewed and interpreted this examination/study. > Interpreting Provider: Tramaine Ceron MD on 07/08/2022 9:41 AM Jovon Maloney DO DIAGNOSTIC IMAGING O RDERABLES * (ABNORMAL) CBC W/O DIFFERENTIAL (10/26/2021 2:31 AM GEOTHERMAL POWERPLANT MECHANIC HELPER) Only the most recent of6 resultswithin the time period is included. WBC 12.2(H) 3.5 - 10.5 10 3/uL 10/26/2021 3:15 AM GEOTHERMAL POWERPLANT MECHANIC HELPER [facility] LABORATORY [facility] RBC 2.39(L) 3.80 - 5.20 10 6/uL 10/26/2021 3:15 AM GEOTHERMAL POWERPLANT MECHANIC HELPER [facility] LABORATORY [facility] Hemoglobin 7.0(L) 12.0 - 15.6 g/dL 10/26/2021 3:15 AM [facility] Hematocrit 21.7(L) 35.0 - 45.0 % 10/26/2021 3:15 AM [facility] MCV 90.8 80.7 - 98.3 fL 10/26/2021 3:15 AM [facility] MCH 29.3 26.7 - 34.0 pg 10/26/2021 3:15 AM [facility] MCHC 32.3 30.8 - 35.9 g/dL 10/26/2021 3:15 AM [facility] Platelet Count 508(H) 150 - 400 10 3/uL 10/26/2021 3:15 AM [facility] RDW-SD 45.7 36.0 - 50.0 fL 10/26/2021 3:15 AM [facility] RDW-CV 14.1 11.2 - 14.8 % 10/26/2021 3:15 AM [facility] MPV 8.9(L) 9.4 - 12.9 fL 10/26/2021 3:15 AM [facility] nRBC Absolute 0.00 0 10 3/uL 10/26/2021 3:15 AM [facility] nRBC Auto 0.0 0 /100 WBC 10/26/2021 3:15 AM [facility] Blood BLOOD SPECIMEN / Unknown Lab Venipuncture / Unknown 10/26/2021 2:31 AM GEOTHERMAL POWERPLANT MECHANIC HELPER 10/26/2021 3:01 AM [facility] Jovon Maloney DO LAB - HEMATOLOGY ORD ERABLES Performing Organization Address City/State/[facility] Co de Phone Number [facility] [address] [place] [phone], [facility] [phone] * (ABNORMAL) BASIC METABOLIC PANEL (CALCIUM TOTAL) (10/26/2021 2:31 AM GEOTHERMAL POWERPLANT MECHANIC HELPER) Only the most recent of6 resultswithin the time period is included. BUN 14 7 - 26 mg/dL 10/26/2021 3:29 AM [facility] Creatinine 0.95 0.56 - 0.96 mg/dL 10/26/2021 3:29 AM [facility] Sodium 134(L) 136 - 145 mmol/L 10/26/2021 3:29 AM [facility] Potassium 4.2 3.5 - 4.5 mmol/L 10/26/2021 3:29 AM [facility] Chloride 102 98 - 107 mmol/L 10/26/2021 3:29 AM [facility] CO2 25 22 - 29 mmol/L 10/26/2021 3:29 AM [facility] Glucose 106 70 - 115 mg/dL 10/26/2021 3:29 AM [facility] Calcium 8.9 8.4 - 10.2 mg/dL 10/26/2021 3:29 AM [facility] Anion Gap 11 8 - 18 10/26/2021 3:29 AM [facility] BUN/Creatinine Ratio 15 7 - 23 10/26/2021 3:29 AM [facility] Osmolality Calculated 279 270 - 300 mOsm/kg 10/26/2021 3:29 AM [facility] eGFR by CKD-EPI 63(L) >=90 mL/min/1.7 3 m2 10/26/2021 3:29 AM [facility] Blood BLOOD SPECIMEN / Unknown Lab Venipuncture / Unknown 10/26/2021 2:31 AM GEOTHERMAL POWERPLANT MECHANIC HELPER 10/26/2021 3:01 AM GEOTHERMAL POWERPLANT MECHANIC HELPER Jovon Maloney DO LAB - CHEMISTRY LINCOLNE RADHA [facility] [address] [place] [address], [facility] [phone] * XR KNEE LEFT 2VW OR LESS (10/25/2021 12:05 PM GEOTHERMAL POWERPLANT MECHANIC HELPER) Only the most recent of2 resultswithin the time period is included. Anatomical Region Laterality Modality Lower Extremity Radiographic Courtney ging 10/25/2021 12:5 9 PM GEOTHERMAL POWERPLANT MECHANIC HELPER Impressions 10/25/2021 1:00 PM GEOTHERMAL POWERPLANT MECHANIC HELPER IMPRESSION: Internally fixated tibial plateau fracture. This report was electronically signed by TRAMAINE CERON MD on 10/25/2021 1:00 PM . Narrative 10/25/2021 1:00 PM GEOTHERMAL POWERPLANT MECHANIC HELPER Exam: XR KNEE LEFT 2VW History: S82.142A: [...] * [place] JAQUELIN SURGERY (10/25/2021 11:36 AM GEOTHERMAL POWERPLANT MECHANIC HELPER) Only the most recent of2 resultswithin the time period is included. Narrative [facility] RADIOLOGY - 10/25/2021 11:37 AM GEOTHERMAL POWERPLANT MECHANIC HELPER Fluoroscopy was used for this exam in the OR. Please see the Operative report. Jovon Maloney DO FLUOROSCOPY ORDERABL ES [facility] RADIOLOGY * ETT LINE PERFORMABLE (10/25/2021 8:26 AM GEOTHERMAL POWERPLANT MECHANIC HELPER) Narrative Veto Guzman DO - 10/25/2021 8:26 AM GEOTHERMAL POWERPLANT MECHANIC HELPER Veto Guzman DO 10/25/2021 8:28 AM Endotracheal Tube Placement: Patient Location: OR. Procedure: intubation ([id number]). Procedure Section: Sedation: under general anesthesia. Indications for Airway Management: anesthesia Induction: standard IV Patient Position: sniffing and supine Mask Ventilation: easy. Blade Type: [...] monitor and CO2 detector Tube secured with: adhesive tape. Dentition unchanged? Yes Difficult Airway? No. Staff Section Anesthesia Provider: Shubham Sarmiento MD Provider #1: Veto Guzman DO, Performed the procedure. Provider #2: Concepción Kaufman DO. Additional Comments: Janniew Ángel 3. Shubham Sarmiento MD GENERAL ANESTHESIA O RDERABLES * TYPE + SCREEN PANEL (10/25/2021 6:42 AM GEOTHERMAL POWERPLANT MECHANIC HELPER) Only the most recent of2 resultswithin the time period is included. [facility] Antibody Screen NEG 7:30 AM GEOTHERMAL POWERPLANT MECHANIC HELPER [facility] BLOOD BANK LAB ABO Rh O POS 10/25/2021 7:30 AM GEOTHERMAL POWERPLANT MECHANIC HELPER [facility] BLOOD BANK LAB Blood Bank BLOOD SPECIMEN / Unknown Venipuncture / Unknown 10/25/2021 6:42 AM GEOTHERMAL POWERPLANT MECHANIC HELPER 10/25/2021 6:51 AM GEOTHERMAL POWERPLANT MECHANIC HELPER Jovon Maloney DO LAB - BLOOD BANK ORD ERABLES [facility] BLOOD BANK LAB [address] [place] [address], [facility] [phone] * SARS-COV-2 (COVID-19) INTERNAL (10/12/2021 3:49 PM GEOTHERMAL POWERPLANT MECHANIC HELPER) [facility] COVID-19 PCR Not detected Not detected 10/13/2021 6:11 AM GEOTHERMAL POWERPLANT MECHANIC HELPER [facility] MICROBIOLOGY Microbiology SPECIMEN FROM NASOPHARYNGEAL STRUCTURE / Unknown Collection / Unknown 10/12/2021 3:49 PM GEOTHERMAL POWERPLANT MECHANIC HELPER 10/12/2021 4:54 PM GEOTHERMAL POWERPLANT MECHANIC HELPER Narrative [facility] MICROBIOLOGY - 10/13/2021 6:11 AM GEOTHERMAL POWERPLANT MECHANIC HELPER This nucleic acid amplification assay performance was validated by [facility] Microbiology Laboratory. This test has been authorized by the Food and Drug administration (FDA)under an Emergency Use Authorization (EUA). This test has been validated [...] Maloney DO LAB - MICROBIOLOGY O RDERABLES [facility] MICROBIOLOGY [address] [place] [address], [facility] [phone] * ETT LINE PERFORMABLE (10/11/2021 11:52 AM GEOTHERMAL POWERPLANT MECHANIC HELPER) Narrative Sloan Salcedo Anes Asst - 10/11/2021 11:52 AM GEOTHERMAL POWERPLANT MECHANIC HELPER Sloan Salcedo Anes Asst 10/11/2021 11:53 AM Endotracheal Tube Placement: Patient Location: OR. Intubation Event Date/Time: 10/11/2021 10:59 AM Procedure: intubation ([id number]). Procedure Section: Sedation: under general anesthesia. Indications for Airway Management: anesthesia Induction: standard IV Patient Position: sniffing and supine Mask Ventilation: easy. Blade Type: Barlow Blade Size: 2 Laryngoscopy View: grade 1 (full cords) Intubation Adjuncts: stylet Nasal Airway Size: 7 Tube: endotracheal tube Placement: oral Tube type: cuff - inflated Tube Size (MM): 7 Measured From: gums Cuff volume (mL): 5 Cuff Inflated With: air Number of Attempts: 1. Placement Verified By: direct visualization, bilateral breath sounds, chest auscultation and CO2 detector CXR Findings: ETT in proper place. Tube secured with: adhesive tape and ETT foote. Dentition unchanged? Yes Difficult Airway? No. Procedure Start Time: 10/11/2021 10:59 AM. Staff Section Anesthesia Provider: Sloan Salcedo Anes Asst, Performed the procedure Frank Nahid MD GENERAL ANESTHESIA O RDERABLES * CT KNEE LEFT WO CONTRAST (10/10/2021 9:26 PM GEOTHERMAL POWERPLANT MECHANIC HELPER) Anatomical Region Laterality Modality Lower Extremity Computed Tomogra phy 10/10/2021 9:33 PM GEOTHERMAL POWERPLANT MECHANIC HELPER Impressions 10/11/2021 9:05 AM GEOTHERMAL POWERPLANT MECHANIC HELPER Impression: 1.Comminuted moderately displaced tibial plateau fracture involving the medial and lateral plateau articular surfaces. 2.Comminuted mildly displaced fibular head fracture. Report drafted by Oni Rowe (resident) IDr. TRAMAINE MD have personally reviewed and interpreted this examination/study. This report was electronically signed by TRAMAINE CERON MD on 10/11/2021 9:05 AM . Narrative 10/11/2021 9:05 AM GEOTHERMAL POWERPLANT MECHANIC HELPER Procedure Information DATE: 10/10/2021 9:28 PM EXAMINATION: [...] (COVID-19)+INFLU A+B PCR RAPID (10/10/2021 8:35 PM GEOTHERMAL POWERPLANT MECHANIC HELPER) COVID-19 PCR Not detected Not detected 10/10/20 9:01 PM [facility] Influenza A Rapid GABRIELA Not Detected Not Detected 10/10/2021 9:01 PM [facility] Influenza B GABRIELA Rapid Not Detected Not Detected 10/10/2021 9:01 PM [facility] Microbiology SPECIMEN FROM NASOPHARYNGEAL STRUCTURE / Unknown Collection / Unknown 10/10/2021 8:35 PM GEOTHERMAL POWERPLANT MECHANIC HELPER 10/10/2021 8:39 PM GEOTHERMAL POWERPLANT MECHANIC HELPER [facility] - 10/10/2021 9:01 PM GEOTHERMAL POWERPLANT MECHANIC HELPER Influenza assay performed by Nucleic Acid Amplification. Results do not exclude the possibility of a mixed viral infection. NOTE: Detecting and identifying specific viral nucleic acids from individuals exhibiting signs and symptoms of respiratory infection aids in the diagnosis of respiratory infection, if used in conjunction with other clinical and laboratory findings. The results of this test should not be used as the sole basis for diagnosis, treatment, or patient management decisions. This nucleic acid amplification assay performance was validated by [facility]. This test has been authorized by the Food and Drug administration (FDA)under an Emergency Use Authorization (EUA). This test has been validated [...] Maloney DO LAB - MICROBIOLOGY O RDERABLES [address] [address], [facility] [phone] * XR STRESS ANY JOINT (10/10/2021 8:31 PM GEOTHERMAL POWERPLANT MECHANIC HELPER) Anatomical Region Laterality Modality Lower Extremity, Upper Extremity Radiographic Imaging 10/11/2021 10:1 6 AM GEOTHERMAL POWERPLANT MECHANIC HELPER Impressions 10/11/2021 10:19 AM GEOTHERMAL POWERPLANT MECHANIC HELPER IMPRESSION: No change in alignment of the osseous structures of the ankle status post stress. Report dictated by Ramon Burns DO (human resources vice president) IDr. KIMI MD, FRCR have personally reviewed and interpreted this examination/study. This report was electronically signed by KIMI TELLO MD, FRCR on 10/11/2021 10:19 AM . Narrative 10/11/2021 10:19 AM GEOTHERMAL POWERPLANT MECHANIC HELPER EXAMINATION: XR STRESS ANY JOINT HISTORY: W11.XXXA: [...] stress. Report dictated by Ramon Burns DO (human resources vice president) Dr. KIMI Mosley MD, FRCR have personally reviewedand interpreted this examination/study. This report was electronically signed by KIMI TELLO MD, FRROSALBA on 10/11/2021 10:19 AM . Lilliam Aguirre MD DIAGNOSTIC IMAGING O RDERABLES * XR FEMUR LEFT 2VW (10/10/2021 8:31 PM GEOTHERMAL POWERPLANT MECHANIC HELPER) Anatomical Region Laterality Modality Lower Extremity Radiographic Courtney ging 10/11/2021 10:1 0 AM GEOTHERMAL POWERPLANT MECHANIC HELPER Impressions 10/11/2021 10:26 AM GEOTHERMAL POWERPLANT MECHANIC HELPER IMPRESSION: 1.No acute osseous abnormality of the femur. 2.Redemonstrated lateral tibial condyle are fracture and proximal fibular fracture with large joint effusion. Report dictated by Ramon Burns DO (human resources vice president). Dr. KIMI Mosley MD, FRCR have personally reviewed and interpreted this examination/study. This report was electronically signed by KIMI TELLO MD, FRROSALBA on 10/11/2021 10:26 AM . Narrative 10/11/2021 10:26 AM GEOTHERMAL POWERPLANT MECHANIC HELPER EXAMINATION: XR FEMUR LEFT 2VW HISTORY: W11.XXXA: [...] effusion. Report dictated by Ramon Burns DO (human resources vice president). Dr. KIMI Mosley MD, FRCR have personally reviewedand interpreted this examination/study. This report was electronically signed by KIMI TELLO MD, FRCR on 10/11/2021 10:26 AM . Lilliam Aguirre MD DIAGNOSTIC IMAGING O RDERABLES * XR PELVIS 1 OR 2VW (10/10/2021 7:59 PM GEOTHERMAL POWERPLANT MECHANIC HELPER) Anatomical Region Laterality Modality Pelvis Radiographic Courtney ging 10/11/2021 10:0 4 AM GEOTHERMAL POWERPLANT MECHANIC HELPER Impressions 10/11/2021 10:52 AM GEOTHERMAL POWERPLANT MECHANIC HELPER IMPRESSION: No acute fracture identified. Report dictated by Ramon Burns DO (human resources vice president). Dr. KIMI Mosley MD, FRCR have personally reviewed and interpreted this examination/study. This report was electronically signed by KIMI TELLO MD, FRROSALBA on 10/11/2021 10:52 AM . Narrative 10/11/2021 10:52 AM GEOTHERMAL POWERPLANT MECHANIC HELPER EXAMINATION: XR PELVIS 1 OR 2VW HISTORY: [...] identified. Report dictated by Ramon Burns DO (human resources vice president). I, Dr. KIMI TELLO MD, FRCR have personally reviewedand interpreted this examination/study. This report was electronically signed by KIMI TELLO MD, FRCR on 10/11/2021 10:52 AM . Lilliam Aguirre MD DIAGNOSTIC IMAGING O RDERABLES * BLOOD TYPE VERIFICATION (10/10/2021 7:08 PM GEOTHERMAL POWERPLANT MECHANIC HELPER) ABO Rh O POS 10/10/2021 8:0 2 PM GEOTHERMAL POWERPLANT MECHANIC HELPER [facility] BLOOD BANK LAB Blood Bank BLOOD SPECIMEN / Unknown Lab Venipuncture / Unknown 10/10/2021 7:08 PM GEOTHERMAL POWERPLANT MECHANIC HELPER 10/10/2021 7:11 PM GEOTHERMAL POWERPLANT MECHANIC HELPER Lilliam Aguirre MD LAB - BLOOD BANK ORD ERABLES [facility] BLOOD BANK LAB [address] [place] [address], [facility] [phone] * XR HIP 2+ VW LEFT (10/10/2021 6:55 PM GEOTHERMAL POWERPLANT MECHANIC HELPER) Anatomical Region Laterality Modality Pelvis, Lower Extremity Radiogra phic Imaging 10/10/2021 7:17 PM GEOTHERMAL POWERPLANT MECHANIC HELPER Impressions 10/11/2021 8:48 AM GEOTHERMAL POWERPLANT MECHANIC HELPER IMPRESSION: 1.Fracture of the tibial condyles with involvement of the lateral tibial plateau and in the condylar eminence. There is depression of the lateral tibial plateau (approximately 9 mm). 2.Widening of lateral aspect of ankle joint is noted without definite fractures. Dictated by Andre Aguilar DO (human resources vice president). I, Dr. KIMI TELLO MD, [facility] have personally reviewed and interpreted this examination/study. This report was electronically signed by KIMI TELLO MD, FRCR on 10/11/2021 8:48 AM . Narrative 10/11/2021 8:48 AM GEOTHERMAL POWERPLANT MECHANIC HELPER EXAMINATION: XR ANKLE LEFT 3VW OR MORE, [...] MORE, XR KNEE LEFT 3VW, XR HIP [id number] OR MORE, XR TIBIA FIBULA LEFT 2VW [...] definite fractures. Dictated by Andre Aguilar DO (human resources vice president). Dr. KIMI Mosley MD, [facility] have personally reviewedand interpreted this examination/study. This report was electronically signed by KIMI TELLO MD, FR on 10/11/2021 8:48 AM . Lilliam Aguirre MD DIAGNOSTIC IMAGING O RDERABLES * XR ANKLE 3+ VW LEFT (10/10/2021 6:55 PM GEOTHERMAL POWERPLANT MECHANIC HELPER) Anatomical Region Laterality Modality Lower Extremity Radiographic Courtney ging 10/10/2021 7:17 PM GEOTHERMAL POWERPLANT MECHANIC HELPER Impressions 10/11/2021 8:48 AM GEOTHERMAL POWERPLANT MECHANIC HELPER IMPRESSION: 1.Fracture of the tibial condyles with involvement of the lateral tibial plateau and in the condylar eminence. There is depression of the lateral tibial plateau (approximately 9 mm). 2.Widening of lateral aspect of ankle joint is noted without definite fractures. Dictated by Andre Aguilar DO (human resources vice president). Dr. KIMI MosleyVIL, MD, FRROSALBA have personally reviewed and interpreted this examination/study. This report was electronically signed by KIMI TELLO MD, FRROSALBA on 10/11/2021 8:48 AM . Narrative 10/11/2021 8:48 AM GEOTHERMAL POWERPLANT MECHANIC HELPER EXAMINATION: XR ANKLE LEFT 3VW OR MORE, [...] MORE, XR KNEE LEFT 3VW, XR HIP [id number] OR MORE, XR TIBIA FIBULA LEFT 2VW [...] definite fractures. Dictated by Andre Aguilar DO (human resources vice president). Dr. KIMI Mosley MD, FR[facility] have personally reviewedand interpreted this examination/study. This report was electronically signed by KIMI TELLO MD, FRCR on 10/11/2021 8:48 AM . Lilliam Aguirre MD DIAGNOSTIC IMAGING O RDERABLES * XR TIBIA FIBULA LEFT 2VW (10/10/2021 6:54 PM GEOTHERMAL POWERPLANT MECHANIC HELPER) Anatomical Region Laterality Modality Lower Extremity Radiographic Courtney ging 10/10/2021 7:17 PM GEOTHERMAL POWERPLANT MECHANIC HELPER Impressions 10/11/2021 8:48 AM GEOTHERMAL POWERPLANT MECHANIC HELPER IMPRESSION: 1.Fracture of the tibial condyles with involvement of the lateral tibial plateau and in the condylar eminence. There is depression of the lateral tibial plateau (approximately 9 mm). 2.Widening of lateral aspect of ankle joint is noted without definite fractures. Dictated by Andre Aguilar DO (human resources vice president). Dr. KIMI Mosley MD, FRROSALBA have personally reviewed and interpreted this examination/study. This report was electronically signed by KIMI TELLO MD, FRCR on 10/11/2021 8:48 AM . Narrative 10/11/2021 8:48 AM GEOTHERMAL POWERPLANT MECHANIC HELPER EXAMINATION: XR ANKLE LEFT 3VW OR MORE, [...] MORE, XR KNEE LEFT 3VW, XR HIP [id number] OR MORE, XR TIBIA FIBULA LEFT 2VW [...] definite fractures. Dictated by Andre Aguilar DO (human resources vice president). I, Dr. KIMI TELLO MD, [facility] have personally reviewedand interpreted this examination/study. This report was electronically signed by KIMI TELLO MD, FRCR on 10/11/2021 8:48 AM . Lilliam Aguirre MD DIAGNOSTIC IMAGING O RDERABLES * PT-INR [facility] (10/10/2021 6:49 PM GEOTHERMAL POWERPLANT MECHANIC HELPER) PT 12.1 12.1 - 14.8 Seconds 10/10/2021 7:38 PM [facility] INR 0.9 See Comment 10/10/2021 7:38 PM [facility] Comment:The suggested therap eutic range for standard coumadin (warfarin) therapy is an INR of 2.0-3.0. For high-risk patients (Mechanical Mitral Valve Prosthesis, etc.), the suggested prophylactic therapeutic range is an INR of 2.5-3.5. Blood BLOOD SPECIMEN / Unknown Venipuncture / Unknown 10/10/2021 6:49 PM GEOTHERMAL POWERPLANT MECHANIC HELPER 10/10/2021 7:28 PM GEOTHERMAL POWERPLANT MECHANIC HELPER Lilliam Aguirre MD LAB - COAGULATION OR DERABLES [facility] [address] [place] [phone], [facility] [phone] * (ABNORMAL) CBC W AUTO DIFFERENTIAL (10/10/2021 6:48 PM GEOTHERMAL POWERPLANT MECHANIC HELPER) WBC 9.8 3.5 - 10.5 10 3/uL 10/10/2021 7:11 PM GEOTHERMAL POWERPLANT MECHANIC HELPER [facility] RBC 4.02 3.80 - 5.20 10 6/uL 10/10/2021 7:11 PM [facility] Hemoglobin 11.9(L) 12.0 - 15.6 g/dL 10/10/2021 7:11 PM [facility] Hematocrit 37.4 35.0 - 45.0 % 10/10/2021 7:11 PM [facility] MCV 93.0 80.7 - 98.3 fL 10/10/2021 7:11 PM [facility] MCH 29.6 26.7 - 34.0 pg 10/10/2021 7:11 PM [facility] MCHC 31.8 30.8 - 35.9 g/dL 10/10/2021 7:11 PM [facility] Platelet Count 294 150 - 400 10 3/uL 10/10/2021 7:11 PM [facility] RDW-SD 46.0 36.0 - 50.0 fL 10/10/2021 7:11 PM [facility] RDW-CV 13.4 11.2 - 14.8 % 10/10/2021 7:11 PM [facility] MPV 9.9 9.4 - 12.9 fL 10/10/2021 7:11 PM [facility] nRBC Absolute 0.00 0 10 3/uL 10/10/2021 7:11 PM [facility] nRBC Auto 0.0 0 /100 WBC 10/10/2021 7:11 PM [facility] Neutrophils % 66.2 35.0 - 70.0 % 10/10/2021 7:11 PM [facility] Lymphocytes % 21.3 20.0 - 43.0 % 10/10/2021 7:11 PM [facility] Monocytes % 10.2 5.0 - 13.0 % 10/10/2021 7:11 PM [facility] Eosinophils % 1.7 0.0 - 6.0 % 10/10/2021 7:11 PM [facility] Basophil % 0.3 0.0 - 2.0 % 10/10/2021 7:11 PM [facility] Neutrophils Absolute 6.5 1.6 - 7.0 10 3/uL 10/10/2021 7:11 PM [facility] Lymphocyte Absolute 2.1 1.1 - 3.9 10 3/uL 10/10/2021 7:11 PM [facility] Monocytes Absolute 1.00 0.26 - 1.07 10 3/uL 10/10/2021 7:11 PM [facility] Eosinophils Absolute 0.17 0.00 - 0.47 10 3/uL 10/10/2021 7:11 PM [facility] Basophils Absolute 0.03 0.00 - 0.08 10 3/uL 10/10/2021 7:11 PM [facility] Immature Granulocytes % 0.3 0.0 - 1.0 % 10/10/2021 7:11 PM [facility] Immature Granulocytes Absolute 0.03 10/10/2021 7:11 PM [facility] Blood BLOOD SPECIMEN / Unknown Venipuncture / Unknown 10/10/2021 6:48 PM GEOTHERMAL POWERPLANT MECHANIC HELPER 10/10/2021 7:01 PM GEOTHERMAL POWERPLANT MECHANIC HELPER Lilliam Aguirre MD LAB - HEMATOLOGY ORD ERABLES Performing Organization Address [facility] Co de Phone Number [address] [phone] [phone] * (ABNORMAL) COMPREHENSIVE METABOLIC PANEL (10/10/2021 6:48 PM GEOTHERMAL POWERPLANT MECHANIC HELPER) BUN 19 7 - 26 mg/dL 10/10/2021 7:25 PM [facility] Creatinine 1.18(H) 0.56 - 0.96 mg/dL 10/10/2021 7:25 PM [facility] Sodium 142 136 - 145 mmol/L 10/10/2021 7:25 PM [facility] Potassium 3.7 3.5 - 4.5 mmol/L 10/10/2021 7:25 PM [facility] Chloride 106 98 - 107 mmol/L 10/10/2021 7:25 PM [facility] CO2 22 22 - 29 mmol/L 10/10/2021 7:25 PM [facility] Glucose 99 70 - 115 mg/dL 10/10/2021 7:25 PM [facility] Calcium 9.9 8.4 - 10.2 mg/dL 10/10/2021 7:25 PM [facility] Protein Total 6.8 6.0 - 8.3 g/dL 10/10/2021 7:25 PM [facility] Albumin 3.6 3.4 - 5.0 g/dL 10/10/2021 7:25 PM [facility] Bilirubin Total 0.2 0.2 - 1.2 mg/dL 10/10/2021 7:25 PM [facility] Alkaline Phosphatase 93 40 - 150 U/L 10/10/2021 7:25 PM [facility] ALT 24 5 - 55 U/L 10/10/2021 7:25 PM [facility] AST 30 5 - 34 U/L 10/10/2021 7:25 PM [facility] Anion Gap 18 8 - 18 10/10/2021 7:25 PM [facility] BUN/Creatinine Ratio 16 7 - 23 10/10/2021 7:25 PM [facility] Osmolality Calculated 296 270 - 300 mOsm/kg 10/10/2021 7:25 PM [facility] Albumin/Globulin Ratio 1.1 1.1 - 2.3 10/10/2021 7:25 PM [facility] eGFR by CKD-EPI 48(L) >=90 mL/min/1.7 3 m2 10/10/2021 7:25 PM [facility] Blood BLOOD SPECIMEN / Unknown Venipuncture / Unknown 10/10/2021 6:48 PM GEOTHERMAL POWERPLANT MECHANIC HELPER 10/10/2021 7:01 PM GEOTHERMAL POWERPLANT MECHANIC HELPER Lilliam Aguirre MD LAB - CHEMISTRY JOCELYNN GARCIA [facility] Organization Address City/State/[facility] Co de Phone Number [address] [phone], [facility] [phone] * CULTURE MRSA (09/25/2014 9:07 AM GEOTHERMAL POWERPLANT MECHANIC HELPER) Culture MRSA Screen No Growth of Methicillin Resistant Staphylococcus aureus. [facility] Nasopharyngeal 09/25/2014 9: 07 AM GEOTHERMAL POWERPLANT MECHANIC HELPER 09/25/2014 3:16 PM GEOTHERMAL POWERPLANT MECHANIC HELPER Narrative [facility] - 09/26/2014 11:18 AM GEOTHERMAL POWERPLANT MECHANIC HELPER AshokSpecimen#[id number] Ashok Loc/Rm/Bed: OP SGPREOP// Historical Provider LAB - MICROBIOLOG Y ORDERABLES [facility] LABORATORY [facility] [address] [phone] Care Teams Dip Painter Relationship Specialty Start Date End Date Edy Aviles DO [address] [place] [address] PCP - General 06/17/22
--- OUTSIDE RECORDS SUMMARY | 2024-12-29 10:45 | XMS_ITS | Encounter Summary ---
Author Organization [facility] Address [address] [place] [address] Care Team Providers Care Family Psychologist Name Role Phone dEy Aviles DO Primary Care Provider [phone] Encounter Details Date Type Department Care Team (Late st Contact Info) Description 12/19/2020 Lab Requisition [facility] DermPath Lab [address] [facility] ([place], [place]), [facility] [place] [id number] [place] [address] Social History Tobacco Use Types Packs/Day Years [...] Comments DERMATOPATHOLOGY Routine 12/18/2020 12:0 0 AM DRAFTER AUTOMOTIVE DES[employer]AYOUT documented in this encounter Results * DERMATOPATHOLOGY (12/18/2020 12:00 AM DRAFTER AUTOMOTIVE DESIGN LAYOUT) Case Report Dermatopathology Report Case: [id number] Authorizing Provider: Israel Lang MD Collected: 12/18/2020 12:00 AM Ordering Location: [facility] DermPath Lab Received: 12/19/2020 11:37 AM Pathologist: Nata Olmos MD Specimen: Skin, left ear superior rim 4:54 PM [facility] DERMATOPATHOLOGY LABORATORY Final Diagnosis Specimen A. 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 4:54 PM [facility] DERMATOPATHOLOGY LABORATORY Gross Description Specimen A: Received is one formalin filled container labeled with the patient's name and designated left ear superior rim. The specimen consists of a shave biopsy (4 pieces) measuring [id number], 2k3y0pk, 5h1g7nw, & 3y6f3li. Jar 0. 4:54 PM [employer] DERMATOPATHOLOGY LABORATORY Microscopic Description Specimen A. SKIN, left ear superior rim: There is epidermal hyperplasia overlying dilated blood vessels and fibroplasia. 4:54 PM [facility] DERMATOPATHOLOGY LABORATORY Disclaimer An external and internal positive and negative controls are appropriate for the histochemical, immunohistochemical and immunofluorescence stain(s) in this case (if any), except where stated explicitly. The performance characteristics of the stain(s) cited in this report were developed and its performance characteristic determined by the Dermatopathology Laboratory at [facility], directed by Dr. Yessi Jakcman. These tests need not be, and therefore are not, approved by the [place] Food and Drug Administration. The tests are used for clinical purposes. Billing Codes Specimen Charges Stain Charges 74579 1 4:54 PM [facility] DERMATOPATHOLOGY LABORATORY Embedded Images 4:54 PM [facility] DERMATOPATHOLOGY LABORATORY Pathology/Cytolog y TISSUE SPECIMEN FROM SKIN / Unknown 12/18/2020 12/19/2020 11:37 AM [facility] Israel Lang MD LAB - PATHOLOGY/CYTO LOGY ORDERABLES DERMATOPATHOLOGY LABORATORY [facility] - Department of Dermatology [address] [phone] documented in this encounter Visit Diagnoses Not on filedocumented in this encounter Care Teams Family Psychologist Relationship Specialty Start Date End Date Edy Aviles DO [address] [place] [address] PCP - General 06/17/22 documented as of this encounter
--- OUTSIDE RECORDS SUMMARY | 2024-12-29 10:45 | XMS_ITS | Clinical Summary ---
Author Organization [facility] Address [address] [place] [address] Care Team Providers Care Sap Security Architect Name Role Phone Zafar Reddy MD Primary Care Provider [phone] Allergies Active Allergy Reactions Criticality Noted Date [...] (11/12/2022): Added automatically from request for surgery [id number] Social History Tobacco Use Types Packs/Day Years [...] 84 03/17/2023 11:57 AM CDT Temperature 36.6 C (97.9 F) 03/17/2023 11:31 AM CDT Respiratory Rate 18 03/17/2023 11:57 AM CDT [...] age to complete this topic Insurance [facility] Care Teams Sap Security Architect Relationship Specialty Start Date End Date Zafar Reddy MD [address] [place] [id number] PCP - General 05/10/12
--- OUTSIDE RECORDS SUMMARY | 2024-12-29 10:45 | XMS_ITS | Encounter Summary ---
Author Organization [facility] Address [address] [place] [address] Care Team Providers Care Manager Business Planning Name Role Phone Zafar Reddy MD Primary Care Provider [phone] Sung Mullen MD Primary Care Provider [phone] Zafar Reddy MD Primary Care Provider [phone] Sung Mullen MD Primary Care Provider [phone] Zafar Reddy MD Primary Care Provider [phone] Sung Mullen MD Primary Care Provider [phone] Edy Aviles DO Primary Care Provider [phone] Per Samson MD Primary Care Provider [phone] Coretta Childers MD Unavailable [phone] Tima Henson MD Unavailable [phone] Encounter Details Date Type Department Care Team (Late st Contact Info) Description 03/13/2017 Orders Only [facility] ProviderKamran MD [address] [place] [address] Social History Tobacco Use Types Packs/Day Years Used Date Smoking Tobacco: Every Day Alcohol Use Standard Drinks/Week Comments No 0 (1 standard drink = 0.6 oz pur e alcohol) Comments Unknown Sex and Gender Information Value Date Recorded Sex Assigned at Not on file Legal Sex Female 11:06 AM 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 [employer] Gender Identity Not on file Sexual Orientation [...] on filedocumented in this encounter Care Teams Manager Business Planning Relationship Specialty Start Date End Date Zafar Reddy MD [address] [place] [address] PCP - General 06/10/12 11/12/20 Sung Mullen MD [address] [place] [address] PCP - General 11/13/20 11/15/20 Zafar Reddy MD [address] [place] [address] PCP - General 11/16/20 11/22/20 Sung Mullen MD [address] [place] [address] PCP - General 11/23/20 11/25/20 Zafar Reddy MD [address] [place] [address] PCP - General 11/26/20 05/20/21 Sung Mullen MD [address] [place] [address] PCP - General Internal Medicine 05/21/21 06/04/22 Edy Aviles DO [address] [place] [address] PCP - General Internal Medicine 06/05/22 05/31/23 Per Samson MD [address] [place] [address] PCP - General Family Practice 06/01/23 Coretta Childers MD [address] [place] [address] Consulting Physician Cardiology 08/28/23 Tima Henson MD [address] [place] [address] Consulting Physician Otolaryngology 08/28/23 documented as of this encounter
--- OUTSIDE RECORDS SUMMARY | 2024-12-29 10:45 | XMS_ITS | Clinical Summary ---
Author Organization [facility] [address] Address [address] [place] [address] Care Team Providers Care Packaging Tech Name Role Phone Per Samson MD Primary Care Provider [phone] Coretta Childers MD Unavailable [phone] Tima Henson MD Unavailable [phone] Allergies Active Allergy Reactions Criticality Noted Date [...] mouth 2 (two) times a day Active aaqwypsz-sjf-NV-ly copen-lutein 0.4-300-250 mg-mcg-mcg tabletIndications: Vitamin Deficiency Prevention [...] 08/28/2023 Assessment & Plan (09/21/2023 9:12 AM TRACER CLERK): She is doing pretty well. Feels like [...] and proceed with this. Sinus node dysfunction ([facility]) 06/08/2023 Morbid (severe) obesity due to excess calories 0 06/01/2023 Body mass index 40.0-44.9, adult ([facility]) 06/01 Sleep-disordered breathing 09/07/2022 Status post placement of implantable loop record er 03/07/2022 Overview (03/07/2022): [employer] Bio-monitor III Loop Recorder. Dx; Syncope, PSVT, AT, RVOT VT s/p ablation. DOI 03/05/2022-[facility]. [employer] remote monitoring. Dizziness 08/19/2021 Lower extremity edema [...] (10/26/2020): Added automatically from request for surgery [id number] Migraine 08/10/2020 Assessment & Plan (08/10/2020 2:22 [...] neuralgia. 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 Assessment & Plan (10/02/2020 1:29 PM TRACER CLERK): Ms. Palma continues to do well clinically after posterior lumbar decompression fusion at L4-5. She has good alignment. There is no lucency around the hardware. We will continue to follow this over time. Assessment & Plan (11/30/2019 1:51 PM TRACER CLERK): Ms. Palma reports persistent numbness in her [...] (05/20/2019): Added automatically from request for surgery [id number] Assessment & Plan (01/22/2023 12:27 PM CDT): [...] physician. Assessment & Plan (01/08/2021 12:53 PM TRACER CLERK): Ms. Palma does not have pain referable [...] time. Assessment & Plan (10/02/2020 1:29 PM TRACER CLERK): Ms. Palma was improved after cervical decompression [...] hour to stretch. FOLLOW UP APPT: With SERVICE PARTS DRIVER in 4 weeks with AP/LAT Cervical spine films. Assessment & Plan (11/24/2018 11:40 AM TRACER CLERK): Patient has new onset symptoms of her [...] patient to schedule on her own at [facility]. We will await the CD to be mailed to our office for Dr. Palmer to review and provide further recommendations. She is to continue the same activity restrictions as outlined prior to surgery. Neuropathic pain 11/24/2018 Assessment & Plan (11/24/2018 11:42 AM TRACER CLERK): For her neuropathic pain and would have [...] (12/16/2018): Added automatically from request for surgery [id number] Cervical spinal stenosis 09/27/2018 Overview (09/27/2018): Added automatically from request for surgery [id number] HNP (herniated nucleus pulposus), lumbar 07/13/2018 03/02/2019 Overview (07/13/2018): Added automatically from request for surgery [id number] Encounters Date Type Department Care Team Description 12/26/2024 7:45 AM TRACER CLERK Ancillary Procedure [facility] [address] [place] [address] [place] [phone] NICM (nonischemic cardiomyopathy) (CMS/HCC) (HCC); NSVT (nonsustained ventricular tachycardia) (HCC) 11/25/2024 Telephone [facility] [address] [place] [phone] Jessica Shoemaker NP 11/18/2024 Orders Only [facility] [address] [place] [address] [place] [phone] Vy Pierce MD Status post placement of implantable loop recorder (Primary Dx); Paroxysmal supraventricular tachycardia (HCC); History of radiofrequency ablation (RFA) procedure for cardiac arrhythmia; Syncope and collapse; RVOT ventricular tachycardia (HCC) 11/14/2024 9:15 AM TRACER CLERK Ancillary Procedure [facility] [address] [place] [address] [place] [address] [place] [phone] Status post placement of implantable loop recorder (Primary Dx); NICM (nonischemic cardiomyopathy) (CMS/HCC) (HCC); NSVT (nonsustained ventricular tachycardia) (HCC) 10/28/2024 Telephone [facility] [address] [place] [address] [place] [phone] Jessica Shoemaker NP 10/27/2024 1:00 PM TRACER CLERK Ancillary Procedure [facility] [address] [place] [address] [place] [phone] Syncope and collapse (Primary Dx); NICM (nonischemic cardiomyopathy) (CMS/HCC) (HCC); NSVT (nonsustained ventricular tachycardia) (HCC); Status post placement of implantable loop recorder; RVOT ventricular tachycardia (HCC); Paroxysmal supraventricular tachycardia (HCC) 10/27/2024 Orders Only [facility] [address] [place] [address] [address] [place] [phone] Jessica Shoemaker NP Dizziness of unknown etiology 10/26/2024 Telephone [facility] [address] [place] [address] [address] [place] [phone] Vy Pierce MD 10/19/2024 Orders Only [facility] Health Information Management [address] [place] [address] Jessica Shoemaker NP 10/10/[address] [place] [phone] Jessica Shoemaker NP Dizziness from Last 3 Months Immunizations Immunization Administration Dates Next Due Pfizer SARS-CoV-2 Monovalent Vaccination (12+ Yrs) PURPLE 09/08/2021,03/05/2021,02/05/2021 Surgical History Surgery Date Site/Laterality Comments CARDIAC ELECTROPHYSIOLOGY ST UDY AND ABLATION x 3 SECTION RHINOPLASTY nose fracture ANTERIOR CERVICAL DISCECTOMY W/ FUSION C4-6 in 1999 - and - C3-4 in 2018 TUBAL LIGATION HEMORRHOID SURGERY SALPINGOOPHORECTOMY Left KNEE [...] on file Legal Sex Female 11:06 AM TRACER CLERK Gender Identity Not on file Sexual Orientation Not on file Obstetrics History Last Filed Vital Signs Vital Sign Reading Time Taken Comments Blood Pressure 112/64 09/26/2024 8:40 AM TRACER CLERK Pulse 105 09/26/2024 8:40 AM TRACER CLERK Temperature 36.4 C (97.5 F) 09/07/2023 10:05 AM CDT Respiratory Rate 18 09/15/2023 9:25 AM TRACER CLERK Oxygen Saturation 97% 09/26/2024 8:40 AM TRACER CLERK Inhaled Oxygen Concentration - - Weight 77.1 kg (170 lb) 09/26/2024 8:40 AM TRACER CLERK Height 154.9 cm (5' 1 ) 09/26/2024 8:40 AM TRACER CLERK Body Mass Index 32.12 09/26/2024 8:40 AM TRACER CLERK Plan of Treatment Health Maintenance Due Date [...] Completed 01/24/2022 Medical Devices Implanted Type Area Wireless Cellular Technician Device Identifier Shelf Expiration Date Model / Serial / Lot Loop Recorder Biotronik Biomonitor Iii-Left Upper Chest Chest Knee Arthroplasty Right: Knee Left Lower Leg Hardware From Fracture Left: Leg [employer]ocon Inc Os-201 Hemasorb Spatula Wax 2gm Bone Sterile - [id number] Implanted:Qty: 1 on 10/15/2018 by Elvin Palmer MD at [facility] N/A: Spine Cervical [employer] Inc 10/08/2020 OS-201 / / [id number] [facility] 3d Cervical 14.1g00r5ld 7 Deg - [id number] Implanted:Qty: 1 on 10/15/2018 by Elvin Palmer MD at [facility] N/A: Spine Cervical Core Link [id number] 12/02/2022 [id number] 709 / / [id number] Core Link Anodyne 12mm Level 1 Spine Cervical Anterior Plate Bone - [id number] Implanted:Qty: 1 on 10/15/2018 by Elvin Palmer MD at [facility] N/A: Spine Cervical Core Link / / Core Link [id number] Anodyne 4mm 14mm Variable Angle Self Tap Spine Cervical Screw - [id number] Implanted:Qty: 4 on 10/15/2018 by Elvin Palmer MD at [facility] N/A: Spine Cervical Core Link 12039-06 / / Screw Bone Biased Angle L14 Mm Od3.5 Mm Cephelad Caudal Nonsterile Posterior Occipital Cervical Thoracic System 3500 Series - [id number] Implanted:Qty: 4 on 01/20/2019 by Elvin Palmer MD at [facility] N/A: Spine Cervical Core Link 21141-00 / / Screw Set Spinal 3500 Series - [id number] Implanted:Qty: 4 on 01/20/2019 by Elvin Palmer MD at [facility] N/A: Spine Cervical Core Link 99102-03 / / Core Link [id number] [place] 3.5mm 50mm Line Prebent Jin Spinal Nonsterile 3500 Series - [id number] Implanted:Qty: 1 on 01/20/2019 by Elvin Palmer MD at [facility] N/A: Spine Cervical Core Link [id number] / / Core Link [id number] [place] Screw Set 5500 Series - Sna - [id number] Implanted:Qty: 4 on 06/20/2019 by Elvin Palmer MD at [facility] N/A: Back Core Link 63815-64 / NA / Core Link [id number] [place] 5.5mm 35mm Line Prebent Jin Spinal Nonsterile 5500 Series - Sns - [id number] Implanted:Qty: 2 on 06/20/2019 by Elvin Palmer MD at [facility] N/A: Back Core Link [id number] / NS / [employer] [id number] Inqu Paste Mix Plus Rehabilitation Tech 10cc Bone Graft Hyaluronic Acid Poly - Sna - [id number] Implanted:Qty: 1 on 06/20/2019 by Elvin Palmer MD at [facility] N/A: Back [employer] [id number] 01/19/2021 [id number] / NA / [id number] Core Link 70711-52 [place] 6.5mm 40mm Spine Pedicle Screw Bone 5500 Series - Sna - [id number] Implanted:Qty: 4 on 06/20/2019 by Elvin Palmer MD at [facility] N/A: Back Core Link [id number] / NA / Ceraped[employer] Inc 700-025 I Factor Allograft Putty Syringe Graft 2.5cc Bone - [id number] Implanted:Qty: 1 on 11/26/2020 by Elvin Palmer MD at [facility] N/A: Spine Cervical [employer] Inc 09/08/2023 700-025 / / [id number] [employer] 3d Cervical 14.1c09c3fm 7 Deg - [id number] Implanted:Qty: 1 on 11/26/2020 by Elvin Palmer MD at [facility] N/A: Spine Cervical Core Link 10/25/2024 [id number] 708 / / [id number] Core Link Anodyne 12mm Level 1 Spine Cervical Anterior Plate Bone - [id number] Implanted:Qty: 1 on 11/26/2020 by Elvin Palmer MD at [facility] N/A: Spine Cervical Core Link / / Core Link Anodyne 4mm 14mm Variable Angle Self Tap Spine Cervical Screw - [id number] Implanted:Qty: 4 on 11/26/2020 by Elvin Palmer MD at [facility] N/A: Spine Cervical Core Link [id number] / / Procedures Procedure Name Priority Date/Time Associated Diagnosis Comments DEVICE CHECK - REMOTE Routine 11/18/2024 12:03 PM TRACER CLERK NICM (nonischemic cardiomyopathy) (CMS/HCC) (HCC) NSVT (nonsustained ventricular tachycardia) (HCC) DEVICE CHECK - REMOTE Routine 10/27/2024 6:13 PM TRACER CLERK NICM (nonischemic cardiomyopathy) (CMS/HCC) (HCC) NSVT (nonsustained ventricular tachycardia) (HCC) SCAN - RADIOLOGY/IMAGING 10/19/2024 HEPATITIS C ANTIBODY STAT 10/15/2018 11:20 AM TRACER CLERK from Last 3 Months or Most Recently Relevant to Health Maintenance Results * DEVICE CHECK - REMOTE (11/18/2024 12:03 PM TRACER CLERK) Anatomical Region Laterality Modality Other Narrative 12/08/2024 3:50 PM TRACER CLERK Biotronik lllm implanted on March 05, 2022 [...] Continue to monitor remotely. Bandar Jordan Device Head Librarian [facility] Chelly Pierce MD CV CARDIAC SERVICES PRO CEDURES Final Result * DEVICE CHECK - REMOTE (10/27/2024 6:13 PM TRACER CLERK) Anatomical Region Laterality Modality Other Narrative 10/28/2024 8:21 AM TRACER CLERK [employer] Bio-monitor III Loop Recorder. Dx; Syncope, PSVT, AT, RVOT VT s/p ablation. DOI 03/05/2022-[facility]. [employer] remote monitoring. Unscheduled ILR remote due to [...] Region Laterality Modality Other us Jessica Shoemaker SERVICE PARTS DRIVER Final Res ult * Hepatitis C antibody (10/15/2018 11:20 AM TRACER CLERK) Hep C Ab Non-Reactiv e Non-Reactiv e [facility] Blood specimen (specimen) 10/15/2018 11:20 AM TRACER CLERK 10/15/2018 11:41 AM TRACER CLERK Narrative [facility] - 10/15/2018 12:25 PM TRACER CLERK us Notinfile Unknown LAB MICROBIOLOGY - GENERAL ORD ERABLES Final Result [facility] [address] [place] [address] from Last 3 Months or Most Recently Relevant to Health Maintenance Insurance MEDICARE [facility] Address: [address] [address] [facility] MEDICARE [employer] MEDICARE [employer] SENIOR SUPPLEMENT Advance Directives For more information, please contact: [phone] * Full Code (Latest Code Status on File) Date Activated Date Inactivated Comments 09/07/2023 10:10 AM 09/07/2023 2:44 PM * Full Code Date Activated Date Inactivated Comments 06/20/2019 12:01 PM 06/20/2019 6:34 PM * Full Code Date Activated Date Inactivated Comments 10/15/2018 2:08 PM 10/15/2018 4:39 PM * Full Code Date Activated Date Inactivated Comments 07/16/2018 2:30 PM 07/16/2018 6:36 PM Care Teams Packaging Tech Relationship Specialty Start Date End Date Per Samson MD PCP - General Family Practice 06/01/23 [facility] Consulting Physician Cardiology 08/28/23 Tima Henson MD [address] [place] [address] Consulting Physician Otolaryngology 08/28/23
--- OUTSIDE RECORDS SUMMARY | 2024-12-29 10:45 | XMS_ITS | Encounter Summary ---
Author Organization [facility] Health Address [address] [place] [address] Care Team Providers Care Jump Iron Machine Presser Name Role Phone Edy Aviles DO Primary Care Provider [phone] Encounter Details Date Type Department Care Team (Late st Contact Info) Description 02/24/2024 Lab Requisition [facility] - DermPath Lab [address] [facility], [facility] [place] [phone] [place] [address] Social History Tobacco Use Types Packs/Day Years Used Date Smoking Tobacco: Every Day Cigarettes 0.5 52.2 Started: 10/25/1972 Smokeless Tobacco: Never Alcohol Use [...] 12:00 AM CDT) Case Report Dermatopathology Report Case: [id number] Authorizing Provider: Israel Lang MD Collected: 02/23/2024 12:00 AM Ordering Location: [facility] - Received: 02/25/2024 06:55 AM DermPath Lab Pathologist: Maryanne Olmos MD Specimens: A) - Skin, right paranasal cheek B) - Skin, right cheek C) - Skin, right parietal scalp 4 1:41 PM CDT DERMATOPATHOLOGY LABORATORY Final Diagnosis Specimen A. 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 SKIN, right parietal scalp: NEUROFIBROMA (D36.10) 4 1:41 PM CDT DERMATOPATHOLOGY LABORATORY Clinical History A: R/O BCC vs other B: R/O BCC vs other C: R/O BCC 1:41 PM T DERMATOPATHOLOGY LABORATORY Gross Description Specimen A: Received [...] five pieces in aggregate shave biopsy measuring 60m15l2 mm. Jar 0. 1:41 PM T DERMATOPATHOLOGY [...] characteristic determined by the Dermatopathology Laboratory at [facility], directed by Dr. Yessi Jackman. These tests need not be, and therefore are not, approved by the [place] Food and Drug Administration. The tests are used for clinical purposes. Billing Codes Specimen Charges Stain Charges 78239 33152 03676 1 1 1 1:41 PM CDT DERMATOPATHOLOGY LABORATORY Embedded Images 1:41 PM T DERMATOPATHOLOGY LABORATORY Pathology/Cytology TISSUE SPECIMEN FROM SKIN / Unknown 02/23/2024 02/25/2024 6:55 AM CDT Miscellaneous samples (specimen) TISSUE SPECIMEN FROM SKIN / Unknown 02/23/2024 02/25/2024 6:55 AM CDT Miscellaneous samples (specimen) TISSUE SPECIMEN FROM SKIN / Unknown 02/23/2024 02/25/2024 6:55 AM CDT Israel Lang MD LAB - PATHOLOGY/CYTO LOGY ORDERABLES DERMATOPATHOLOGY LABORATORY [facility] - Department of Dermatology [facility] [address] [place] [address], [address] [phone] documented in this encounter Visit Diagnoses Not on filedocumented in this encounter Care Teams Jump Iron Machine Presser Relationship Specialty Start Date End Date Edy Aviles DO [address] [place], [place] [id number] PCP - General 06/17/22 documented as of this encounter
--- OUTSIDE RECORDS SUMMARY | 2024-12-29 10:45 | XMS_ITS | Clinical Summary ---
Author Organization [facility] Jareth kay [facility] Address [address] [facility] [place] [address] Care Team Providers Care Clinical Education Coordinator Name Role Phone Unavailable Primary Care Provider Unavailabl e Social History Tobacco Use Types Packs/Day Years Used Date Smoking Tobacco: Never Assessed Comments Unknown Sex and Gender Information Value Date Recorded Sex Assigned at Not on file Legal Sex Female 2:15 PM VEGETABLE GROWER Gender Identity Not on file Sexual Orientation Not on file Plan of Treatment Upcoming Encounters Date Type Department Care Team (Late st Contact Info) Description 01/04/2025 12:00 PM VEGETABLE GROWER Office Visit [facility] Oncology and Hematology - Ashok [address] [facility] [address] [place] [address] Basil Ludwig MD [address] [facility] [address] [place] [address] Health Maintenance Due Date Last Done Comments DTAP/TDAP/TD VACCINES (1 - Tdap) 1975 BREAST CANCER SCREENING 1996 COLORECTAL SCREENING 2001 Colorectal Cancer Screening 2001 FIT-DNA Q 3 years 2001 FIT/FOBT Q 1 year 2001 Flex Sig/CT Colonography Q 5 years 2001 PNEUMOCOCCAL VACCINE 65+ YEARS (1 of 1 - PCV) 09/10/20 06 ZOSTER VACCINE (1 of 2) 2006 OSTEOPOROSIS SCREENING 2021 INFLUENZA VACCINE (#1) 2024 RSV VACCINE (60+ or ) (1 - 1-dose 75+ series) 2031
[2024-12-29 11:06] LABS: Glucose Point of Care 84 mg/dl (65-105)
== END 2024-12-29 10:24 | disposition home or self-care (01) ==
PROVIDERS: PCP Family Medicine; Visit Provider Nurse Practitioner Family
DX: C79.51 Secondary malignant neoplasm of bone (principal)
CPT/HCPCS: 78815; 93005; A9552

== ENCOUNTER 2024-12-29 12:35 | Outpatient (CLI) | payer MEDICARE, SELFPAY ==
--- OUTSIDE RECORDS SUMMARY | 2024-12-29 12:48 | XMS_ITS | Clinical Summary ---
Author Organization [facility] [place] [address] Address [address] [place] [address] Care Team Providers Care Fabric Stretcher Name Role Phone Per Samson MD Primary Care Provider [phone] Coretta Childers MD Unavailable [phone] Tima Henson MD Unavailable [phone] Allergies Active Allergy Reactions Criticality Noted Date [...] mouth 2 (two) times a day Active omwjdkwe-egx-VH-ly copen-lutein 0.4-300-250 mg-mcg-mcg tabletIndications: Vitamin Deficiency Prevention [...] 08/28/2023 Assessment & Plan (09/21/2023 9:12 AM BOOKKEEPING CLERKS SUPERVISOR): She is doing pretty well. Feels like [...] and proceed with this. Sinus node dysfunction ([facility]) 06/08/2023 Morbid (severe) obesity due to excess calories 0 06/01/2023 Body mass index 40.0-44.9, adult ([facility]) 06/01 Sleep-disordered breathing 09/07/2022 Status post placement of implantable loop record er 03/07/2022 Overview (03/07/2022): TouristR Bio-monitor III Loop Recorder. Dx; Syncope, PSVT, AT, RVOT VT s/p ablation. DOI 03/05/2022-[facility]. Topixronik remote monitoring. Dizziness 08/19/2021 Lower extremity edema [...] (10/26/2020): Added automatically from request for surgery [id number] Migraine 08/10/2020 Assessment & Plan (08/10/2020 2:22 [...] neuralgia. 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 Assessment & Plan (10/02/2020 1:29 PM BOOKKEEPING CLERKS SUPERVISOR): Ms. Palma continues to do well clinically after posterior lumbar decompression fusion at L4-5. She has good alignment. There is no lucency around the hardware. We will continue to follow this over time. Assessment & Plan (11/30/2019 1:51 PM BOOKKEEPING CLERKS SUPERVISOR): Ms. Palma reports persistent numbness in her [...] (05/20/2019): Added automatically from request for surgery [id number] Assessment & Plan (01/22/2023 12:27 PM CDT): [...] physician. Assessment & Plan (01/08/2021 12:53 PM BOOKKEEPING CLERKS SUPERVISOR): Ms. Palma does not have pain referable [...] time. Assessment & Plan (10/02/2020 1:29 PM BOOKKEEPING CLERKS SUPERVISOR): Ms. Palma was improved after cervical decompression [...] hour to stretch. FOLLOW UP APPT: With ANGLE SHEARER in 4 weeks with AP/LAT Cervical spine films. Assessment & Plan (11/24/2018 11:40 AM BOOKKEEPING CLERKS SUPERVISOR): Patient has new onset symptoms of her [...] patient to schedule on her own at [facility]. We will await the CD to be mailed to our office for Dr. Palmer to review and provide further recommendations. She is to continue the same activity restrictions as outlined prior to surgery. Neuropathic pain 11/24/2018 Assessment & Plan (11/24/2018 11:42 AM BOOKKEEPING CLERKS SUPERVISOR): For her neuropathic pain and would have [...] (12/16/2018): Added automatically from request for surgery [id number] Cervical spinal stenosis 09/27/2018 Overview (09/27/2018): Added automatically from request for surgery [id number] HNP (herniated nucleus pulposus), lumbar 07/13/2018 03/02/2019 Overview (07/13/2018): Added automatically from request for surgery [id number] Encounters Date Type Department Care Team Description 12/26/2024 7:45 AM BOOKKEEPING CLERKS SUPERVISOR Ancillary Procedure [facility] Cardiology [address] [place] [address] [place] [phone] NICM (nonischemic cardiomyopathy) (CMS/HCC) (HCC); NSVT (nonsustained ventricular tachycardia) (HCC) 11/25/2024 Telephone [facility] Cardiology [address] [place] [phone] Jessica Shoemaker NP 11/18/2024 Orders Only [facility] [address] [place] [address] [place] [phone] Vy Pierce MD Status post placement of implantable loop recorder (Primary Dx); Paroxysmal supraventricular tachycardia (HCC); History of radiofrequency ablation (RFA) procedure for cardiac arrhythmia; Syncope and collapse; RVOT ventricular tachycardia (HCC) 11/14/2024 9:15 AM BOOKKEEPING CLERKS SUPERVISOR Ancillary Procedure [facility] Card[facility] [address] [place] [address] [place] [address] [place] [phone] Status post placement of implantable loop recorder (Primary Dx); NICM (nonischemic cardiomyopathy) (CMS/HCC) (HCC); NSVT (nonsustained ventricular tachycardia) (HCC) 10/28/2024 Telephone [facility] [address] [place] [address] [place] [phone] Jessica Shoemaker NP 10/27/2024 1:00 PM BOOKKEEPING CLERKS SUPERVISOR Ancillary Procedure [facility] [address] [place] [address] [place] [phone] Syncope and collapse (Primary Dx); NICM (nonischemic cardiomyopathy) (CMS/HCC) (HCC); NSVT (nonsustained ventricular tachycardia) (HCC); Status post placement of implantable loop recorder; RVOT ventricular tachycardia (HCC); Paroxysmal supraventricular tachycardia (HCC) 10/27/2024 Orders Only [facility] [address] [place] [address] [address] [place] [phone] Jessica Shoemaker NP Dizziness of unknown etiology 10/26/2024 Telephone [facility] [address] [place] [address] [address] [place] [phone] Vy Pierce MD 10/19/2024 Orders Only [facility] Health Information Management [address] [place] [phone] Jessica Shoemaker NP 10/10/[address] [place] [phone] Jessica Shoemaker NP Dizziness from Last [...] on file Legal Sex Female 11:06 AM BOOKKEEPING CLERKS SUPERVISOR Gender Identity Not on file Sexual Orientation Not on file Obstetrics History Last Filed Vital Signs Vital Sign Reading Time Taken Comments Blood Pressure 112/64 09/26/2024 8:40 AM BOOKKEEPING CLERKS SUPERVISOR Pulse 105 09/26/2024 8:40 AM BOOKKEEPING CLERKS SUPERVISOR Temperature 36.4 C (97.5 F) 09/07/2023 10:05 AM CDT Respiratory Rate 18 09/15/2023 9:25 AM BOOKKEEPING CLERKS SUPERVISOR Oxygen Saturation 97% 09/26/2024 8:40 AM BOOKKEEPING CLERKS SUPERVISOR Inhaled Oxygen Concentration - - Weight 77.1 kg (170 lb) 09/26/2024 8:40 AM BOOKKEEPING CLERKS SUPERVISOR Height 154.9 cm (5' 1 ) 09/26/2024 8:40 AM BOOKKEEPING CLERKS SUPERVISOR Body Mass Index 32.12 09/26/2024 8:40 AM BOOKKEEPING CLERKS SUPERVISOR Plan of Treatment Health Maintenance Due Date [...] Completed 01/24/2022 Medical Devices Implanted Type Area Relationship Advisor Device Identifier Shelf Expiration Date Model / Serial / Lot Loop Recorder Biotronik Biomonitor Iii-Left Upper Chest Chest Knee Arthroplasty Right: Knee Left Lower Leg Hardware From Fracture Left: Leg [employer] Os-201 Hemasorb Spatula Wax 2gm Bone Sterile - [id number] Implanted:Qty: 1 on 10/15/2018 by Elvin Palmer MD at [facility] N/A: Spine Cervical [employer] Inc 10/08/2020 OS-201 / / [id number] [facility] 3d Cervical 14.7e01v1sb 7 Deg - [id number] Implanted:Qty: 1 on 10/15/2018 by Elvin Palmer MD at [facility] N/A: Spine Cervical Core Link [id number] 12/02/2022 [id number] / / [id number] Core Link Anodyne 12mm Level 1 Spine Cervical Anterior Plate Bone - [id number] Implanted:Qty: 1 on 10/15/2018 by Elvin Palmer MD at [facility] N/A: Spine Cervical Core Link / / Core Link [id number] Anodyne 4mm 14mm Variable Angle Self Tap Spine Cervical Screw - [id number] Implanted:Qty: 4 on 10/15/2018 by Elvin Palmer MD at [facility] N/A: Spine Cervical Core Link 00287-40 / / Screw Bone Biased Angle L14 Mm Od3.5 Mm Cephelad Caudal Nonsterile Posterior Occipital Cervical Thoracic System 3500 Series - [id number] Implanted:Qty: 4 on 01/20/2019 by Elvin Palmer MD at [facility] N/A: Spine Cervical Core Link 39085-01 / / Screw Set Spinal 3500 Series - [id number] Implanted:Qty: 4 on 01/20/2019 by Elvin Palmer MD at [facility] N/A: Spine Cervical Core Link 16868-28 / / Core Link [id number] [place] 3.5mm 50mm Line Prebent Jin Spinal Nonsterile 3500 Series - [id number] Implanted:Qty: 1 on 01/20/2019 by Elvin Palmer MD at [facility] N/A: Spine Cervical Core Link [id number] / / Core Link 47850-79 [place] Screw Set 5500 Series - Sna - [id number] Implanted:Qty: 4 on 06/20/2019 by Elvin Palmer MD at [facility] N/A: Back Core Link 91809-80 / NA / Core Link [id number] [place]wood 5.5mm 35mm Line Prebent Jin Spinal Nonsterile 5500 Series - Sns - [id number] Implanted:Qty: 2 on 06/20/2019 by Elvin Palmer MD at [facility] N/A: Back Core Link [id number] / NS / [employer] [id number] Inqu Paste Mix Plus Structural Technician 10cc Bone Graft Hyaluronic Acid Poly - Sna - [id number] Implanted:Qty: 1 on 06/20/2019 by Elvin Palmer MD at [facility] N/A: Back [employer] [id number] 01/19/2021 [id number] / NA / [id number] Core Link 97059-77 Glenwood 6.5mm 40mm Spine Pedicle Screw Bone 5500 Series - Sna - [id number] Implanted:Qty: 4 on 06/20/2019 by Elvin Palmer MD at [facility] N/A: Back Core Link 40177-13 / NA / [employer] Inc 700-025 I Factor Allograft Putty Syringe Graft 2.5cc Bone - [id number] Implanted:Qty: 1 on 11/26/2020 by Elvin Palmer MD at [facility] N/A: Spine Cervical [employer] Inc 09/08/2023 700-025 / / [id number] [employer] 3d Cervical 14.0i59r2uo 7 Deg - [id number] Implanted:Qty: 1 on 11/26/2020 by Elvin Palmer MD at [facility] N/A: Spine Cervical Core Link 10/25/2024 [id number] / / [id number] Core Link Anodyne 12mm Level 1 Spine Cervical Anterior Plate Bone - [id number] Implanted:Qty: 1 on 11/26/2020 by Elvin Palmer MD at [facility] N/A: Spine Cervical Core Link / / Core Link Anodyne 4mm 14mm Variable Angle Self Tap Spine Cervical Screw - [id number] Implanted:Qty: 4 on 11/26/2020 by Elvin Palmer MD at [facility] N/A: Spine Cervical Core Link 09540-85 / / Procedures Procedure Name Priority Date/Time Associated Diagnosis Comments DEVICE CHECK - REMOTE Routine 11/18/2024 12:03 PM BOOKKEEPING CLERKS SUPERVISOR NICM (nonischemic cardiomyopathy) (CMS/HCC) (HCC) NSVT (nonsustained ventricular tachycardia) (HCC) DEVICE CHECK - REMOTE Routine 10/27/2024 6:13 PM BOOKKEEPING CLERKS SUPERVISOR NICM (nonischemic cardiomyopathy) (CMS/HCC) (HCC) NSVT (nonsustained ventricular tachycardia) (HCC) SCAN - RADIOLOGY/IMAGING 10/19/2024 HEPATITIS C ANTIBODY STAT 10/15/2018 11:20 AM BOOKKEEPING CLERKS SUPERVISOR from Last 3 Months or Most Recently Relevant to Health Maintenance Results * DEVICE CHECK - REMOTE (11/18/2024 12:03 PM BOOKKEEPING CLERKS SUPERVISOR) Anatomical Region Laterality Modality Other Narrative 12/08/2024 3:50 PM BOOKKEEPING CLERKS SUPERVISOR Biotronik lllm implanted on March 05, 2022 [...] Continue to monitor remotely. Bandar Jordan Device Plug Machine Operator [facility] Chelly Pierce MD [facility] CARDI[facility] PRO CEDURES Final Result * DEVICE CHECK - REMOTE (10/27/2024 6:13 PM BOOKKEEPING CLERKS SUPERVISOR) Anatomical Region Laterality Modality Other Narrative 10/28/2024 8:21 AM BOOKKEEPING CLERKS SUPERVISOR [employer] Bio-monitor III Loop Recorder. Dx; Syncope, PSVT, AT, RVOT VT s/p ablation. DOI 03/05/2022-[facility]. Topixronik remote monitoring. Unscheduled ILR remote due to [...] Region Laterality Modality Other us Jessica Shoemaker ANGLE SHEARER Final Res ult * Hepatitis C antibody (10/15/2018 11:20 AM BOOKKEEPING CLERKS SUPERVISOR) Hep C Ab Non-Reactiv e Non-Reactiv e [facility] Blood specimen (specimen) 10/15/2018 11:20 AM BOOKKEEPING CLERKS SUPERVISOR 10/15/2018 11:41 AM BOOKKEEPING CLERKS SUPERVISOR Narrative [facility] - 10/15/2018 12:25 PM BOOKKEEPING CLERKS SUPERVISOR us Notinfile Unknown LAB MICROBIOLOGY - GENERAL ORD ERABLES Final Result [facility] [address] Department [place] [address] from Last 3 Months or Most Recently Relevant to Health Maintenance Insurance MEDICARE [facility] MEDICARE T MEDICARE [employer] SENIOR SUPPLEMENT Advance Directives For more information, please contact: [phone] * Full Code (Latest Code Status on File) Date Activated Date Inactivated Comments 09/07/2023 10:10 AM 09/07/2023 2:44 PM * Full Code Date Activated Date Inactivated Comments 06/20/2019 12:01 PM 06/20/2019 6:34 PM * Full Code Date Activated Date Inactivated Comments 10/15/2018 2:08 PM 10/15/2018 4:39 PM * Full Code Date Activated Date Inactivated Comments 07/16/2018 2:30 PM 07/16/2018 6:36 PM Care Teams Fabric Stretcher Relationship Specialty Start Date End Date Per Samson MD PCP - General Family Practice [facility]23 [facility] Phys[facility] Cardiology 08/28/23 Tima Henson MD [address] [place] [address] Consulting Physician Otolaryngology 08/28/23
--- OUTSIDE RECORDS SUMMARY | 2024-12-29 12:48 | XMS_ITS | Referral Summary ---
Author Organization [facility] [address] [place] [address] [address] [place] [address] Care Team Providers Care Exchange Architect Name Role Phone Per Samson MD Primary Care Provider [phone] Coretta Childers MD Unavailable [phone] Tima Henson MD Unavailable [phone] Encounters Date Type Department Care Team Description 12/26/2024 7:45 AM SLIP PRESSER Ancillary Procedure [facility] Cardiology [address] [place] [address] [place] [phone] NICM (nonischemic cardiomyopathy) (CMS/HCC) (HCC); NSVT (nonsustained ventricular tachycardia) (HCC) 11/25/2024 Telephone [facility] Cardiology [address] [place] [address] [address] [place] [address] Jessica Shoemaker NP 11/18/2024 Orders Only [facility]iology [address] [place] [address] [place] [phone] yV Pierce MD Status post placement of implantable loop recorder (Primary Dx); Paroxysmal supraventricular tachycardia (HCC); History of radiofrequency ablation (RFA) procedure for cardiac arrhythmia; Syncope and collapse; RVOT ventricular tachycardia (HCC) 11/14/2024 9:15 AM SLIP PRESSER Ancillary Procedure [facility] Cardiology [address] [place] [address] [place] [phone] Status post placement of implantable loop recorder (Primary Dx); NICM (nonischemic cardiomyopathy) (CMS/HCC) (HCC); NSVT (nonsustained ventricular tachycardia) (HCC) 10/28/2024 Telephone [facility] Cardiology [address] [place] [phone] Jessica Shoemaker NP 10/27/2024 1:00 PM SLIP PRESSER Ancillary Procedure [facility] Cardiology [address] [place] [phone] Syncope and collapse (Primary Dx); NICM (nonischemic cardiomyopathy) (CMS/HCC) (HCC); NSVT (nonsustained ventricular tachycardia) (HCC); Status post placement of implantable loop recorder; RVOT ventricular tachycardia (HCC); Paroxysmal supraventricular tachycardia (HCC) 10/27/2024 Orders Only [facility] Cardiology [address] [place] [phone] Jessica Shoemaker NP Dizziness of unknown etiology 10/26/2024 Telephone [facility] Cardiology [address] [place] [phone] Vy Pierce MD 10/19/2024 Orders Only [facility] Health Information Management [address] [place] [address] Jessica Shoemaker NP 10/10/2024 Telephone [facility] Cardiology [address] [place] [phone] Jessica Shoemaker NP Dizziness from Last [...] mouth 2 (two) times a day Active vnqpefes-ike-LA-ly copen-lutein 0.4-300-250 mg-mcg-mcg tabletIndications: Vitamin Deficiency Prevention [...] 08/28/2023 Assessment & Plan (09/21/2023 9:12 AM SLIP PRESSER): She is doing pretty well. Feels like [...] implantable loop record er 03/07/2022 Overview (03/07/2022): [employer] Bio-monitor III Loop Recorder. Dx; Syncope, PSVT, AT, RVOT VT s/p ablation. DOI 03/05/2022-[facility]. Luma.ioronik remote monitoring. Dizziness 08/19/2021 Lower extremity edema [...] (10/26/2020): Added automatically from request for surgery [id number] Migraine 08/10/2020 Assessment & Plan (08/10/2020 2:22 [...] neuralgia. Assessment & Plan (11/30/2019 1:53 PM SLIP PRESSER): Ms. Palma has occipital neuralgia with reproduction [...] less. Assessment & Plan (10/02/2020 1:29 PM SLIP PRESSER): Ms. Palma continues to do well clinically after posterior lumbar decompression fusion at L4-5. She has good alignment. There is no lucency around the hardware. We will continue to follow this over time. Assessment & Plan (11/30/2019 1:51 PM SLIP PRESSER): Ms. Palma reports persistent numbness in her [...] (05/20/2019): Added automatically from request for surgery [id number] Assessment & Plan (01/22/2023 12:27 PM CDT): [...] physician. Assessment & Plan (01/08/2021 12:53 PM SLIP PRESSER): Ms. Palma does not have pain referable [...] time. Assessment & Plan (10/02/2020 1:29 PM SLIP PRESSER): Ms. Palma was improved after cervical decompression [...] hour to stretch. FOLLOW UP APPT: With DATA REVIEWER in 4 weeks with AP/LAT Cervical spine films. Assessment & Plan (11/24/2018 11:40 AM SLIP PRESSER): Patient has new onset symptoms of her [...] patient to schedule on her own at [facility]. We will await the CD to be mailed to our office for Dr. Palmer to review and provide further recommendations. She is to continue the same activity restrictions as outlined prior to surgery. Neuropathic pain 11/24/2018 Assessment & Plan (11/24/2018 11:42 AM SLIP PRESSER): For her neuropathic pain and would have [...] (12/16/2018): Added automatically from request for surgery [id number] Cervical spinal stenosis 09/27/2018 Overview (09/27/2018): Added automatically from request for surgery [id number] HNP (herniated nucleus pulposus), lumbar 07/13/2018 03/02/2019 Overview (07/13/2018): Added automatically from request for surgery [id number] Immunizations Immunization Administration Dates Next Due Pfizer [...] on file Legal Sex Female 11:06 AM SLIP PRESSER Gender Identity Not on file Sexual Orientation Not on file Last Filed Vital Signs Vital Sign Reading Time Taken Comments Blood Pressure 112/64 09/26/2024 8:40 AM SLIP PRESSER Pulse 105 09/26/2024 8:40 AM SLIP PRESSER Temperature 36.4 C (97.5 F) 09/07/2023 10:05 AM CDT Respiratory Rate 18 09/15/2023 9:25 AM SLIP PRESSER Oxygen Saturation 97% 09/26/2024 8:40 AM SLIP PRESSER Inhaled Oxygen Concentration - - Weight 77.1 kg (170 lb) 09/26/2024 8:40 AM SLIP PRESSER Height 154.9 cm (5' 1 ) 09/26/2024 8:40 AM SLIP PRESSER Body Mass Index 32.12 09/26/2024 8:40 AM SLIP PRESSER Plan of Treatment Not on file Medical Devices Implanted Type Area Printing Machine Operator Device Identifier Shelf Expiration Date Model / Serial / Lot Loop Recorder Biotronik Biomonitor Iii-Left Upper Chest Chest Knee Arthroplasty Right: Knee Left Lower Leg Hardware From Fracture Left: Leg [employer] Inc Os-201 Hemasorb Spatula Wax 2gm Bone Sterile - [id number] Implanted:Qty: 1 on 10/15/2018 by Elvin Palmer MD at [facility] N/A: Spine Cervical [employer] Inc 10/08/2020 OS-201 / / [id number] C[employer] 3d Cervical [id number] 7 Deg - [id number] Implanted:Qty: 1 on 10/15/2018 by Elvin Palmer MD at [facility] N/A: Spine Cervical Core Link [id number] 12/02/2022 [id number] / / [id number] Core Link Anodyne 12mm Level 1 Spine Cervical Anterior Plate Bone - [id number] Implanted:Qty: 1 on 10/15/2018 by Elvin Palmer MD at [facility] N/A: Spine Cervical Core Link / / Core Link Anodyne 4mm 14mm Variable Angle Self Tap Spine Cervical Screw - [id number] Implanted:Qty: 4 on 10/15/2018 by Elvin Palmer MD at [facility] N/A: Spine Cervical Core Link / / Screw Bone Biased Angle L14 Mm Od3.5 Mm Cephelad Caudal Nonsterile Posterior Occipital Cervical Thoracic System 3500 Series - [id number] Implanted:Qty: 4 on 01/20/2019 by Elvin Palmer MD at [facility] N/A: Spine Cervical Core Link [id number] / / Screw Set Spinal 3500 Series - [id number] Implanted:Qty: 4 on 01/20/2019 by Elvin Palmer MD at [facility] N/A: Spine Cervical Core Link [id number] / / Core Link [id number] [place] 3.5mm 50mm Line Prebent Jin Spinal Nonsterile 3500 Series - [id number] Implanted:Qty: 1 on 01/20/2019 by Elvin Palmer MD at [facility] N/A: Spine Cervical Core Link [id number] / / Core Link [id number] [place] Screw Set 5500 Series - Sna - [id number] Implanted:Qty: 4 on 06/20/2019 by Elvin Palmer MD at [facility] N/A: Back Core Link 18467-42 / NA / Core Link [id number] [place] 5.5mm 35mm Line Prebent Jin Spinal Nonsterile 5500 Series - Sns - [id number] Implanted:Qty: 2 on 06/20/2019 by Elvin Palmer MD at [facility] N/A: Back Core Link [id number] / NS / [employer] [id number] Inqu Paste Mix Plus Ticket Collector 10cc Bone Graft Hyaluronic Acid Poly - Sna - [id number] Implanted:Qty: 1 on 06/20/2019 by Elvin Palmer MD at [facility] N/A: [employer] [id number] 01/19/2021 [id number] / NA / [id number] Core Link [id number] [place] 6.5mm 40mm Spine Pedicle Screw Bone 5500 Series - Sna - [id number] Implanted:Qty: 4 on 06/20/2019 by Elvin Palmer MD at [facility] N/A: Back Core Link [id number] / NA / Cerapedics Inc 700-025 I Factor Allograft Putty Syringe Graft 2.5cc Bone - [id number] Implanted:Qty: 1 on 11/26/2020 by Elvin Palmer MD at [facility] N/A: Spine Cervical [employer] Inc 09/08/2023 700-025 / / [id number] C[employer] 3d Cervical 14.0m39r7iq 7 Deg - [id number] Implanted:Qty: 1 on 11/26/2020 by Elvin Palmer MD at [facility] N/A: Spine Cervical Core Link 10/25/2024 [id number] / / [id number] Core Link Anodyne 12mm Level 1 Spine Cervical Anterior Plate Bone - [id number] Implanted:Qty: 1 on 11/26/2020 by Elvin Palmer MD at [facility] N/A: Spine Cervical Core Link / / Core Link Anodyne 4mm 14mm Variable Angle Self Tap Spine Cervical Screw - [id number] Implanted:Qty: 4 on 11/26/2020 by Elvin Palmer MD at [facility] N/A: Spine Cervical Core Link / / Procedures Procedure Name Priority Date/Time Associated Diagnosis Comments DEVICE CHECK - REMOTE Routine 11/18/2024 12:03 PM SLIP PRESSER NICM (nonischemic cardiomyopathy) (CMS/HCC) (HCC) NSVT (nonsustained ventricular tachycardia) ([facility]) DEVICE CHECK - REMOTE Routine 10/27/2024 6:13 PM SLIP PRESSER NICM (nonischemic cardiomyopathy) (CMS/HCC) (HCC) NSVT (nonsustained ventricular tachycardia) (HCC) SCAN - RADIOLOGY/IMAGING 10/19/2024 HEPATITIS C ANTIBODY STAT 10/15/2018 11:20 AM SLIP PRESSER from Last 3 Months or Most Recently Relevant to Health Maintenance Results * DEVICE CHECK - REMOTE (11/18/2024 12:03 PM SLIP PRESSER) Anatomical Region Laterality Modality Other Narrative 12/08/2024 3:50 PM SLIP PRESSER Biotronik lllm implanted on March 05, 2022 [...] Continue to monitor remotely. Bandar Jordan Device Scourer [facility] Chelly Pierce MD [facility] PRO CEDURES Final Result * DEVICE CHECK - REMOTE (10/27/2024 6:13 PM SLIP PRESSER) Anatomical Region Laterality Modality Other Narrative 10/28/2024 8:21 AM SLIP PRESSER [employer] Bio-monitor III Loop Recorder. Dx; Syncope, PSVT, AT, RVOT VT s/p ablation. DOI 03/05/2022-[facility]. Biotronik remote monitoring. Unscheduled [...] Region Laterality Modality Other us Jessica Shoemaker DATA REVIEWER Final Res ult * Hepatitis C antibody (10/15/2018 11:20 AM SLIP PRESSER) Hep C Ab Non-Reactiv e Non-Reactiv e [facility] Blood specimen (specimen) 10/15/2018 11:20 AM SLIP PRESSER 10/15/2018 11:41 AM SLIP PRESSER Narrative [facility] - 10/15/2018 12:25 PM SLIP PRESSER us Notinfile Unknown LAB MICROBIOLOGY - GENERAL ORD ERABLES Final Result [facility] [address] Department [place] [address] from Last 3 Months or Most Recently Relevant to Health Maintenance Insurance MEDICARE [employer] MEDICARE [employer] MEDICARE [employer] SENIOR SUPPLEMENT Advance Directives For more information, please contact: [phone] * Full Code (Latest Code Status on File) Date Activated Date Inactivated Comments 09/07/2023 10:10 AM 09/07/2023 2:44 PM * Full Code Date Activated Date Inactivated Comments 06/20/2019 12:01 PM 06/20/2019 6:34 PM * Full Code Date Activated Date Inactivated Comments 10/15/2018 2:08 PM 10/15/2018 4:39 PM * Full Code Date Activated Date Inactivated Comments 07/16/2018 2:30 PM 07/16/2018 6:36 PM Care Teams Exchange Architect Relationship Specialty Start Date End Date Per Samson MD PCP - General Family Practice 06/01/23 Coretta Childers MD Consulting Physician Cardiology 08/28/23 Tima Henson MD [address] [place] [address] Consulting Physician Otolaryngology 08/28/23
--- OUTSIDE RECORDS SUMMARY | 2024-12-29 12:48 | XMS_ITS | Clinical Summary ---
Author Organization [facility] Jareth kay [facility] Address [address] [facility] [place] [address] Care Team Providers Care Furnace Feeder Name Role Phone Unavailable Primary Care Provider Unavailabl e Social History Tobacco Use Types Packs/Day Years Used Date Smoking Tobacco: Never Assessed Comments Unknown Sex and Gender Information Value Date Recorded Sex Assigned at Not on file Legal Sex Female 2:15 PM NICKER Gender Identity Not on file Sexual Orientation Not on file Plan of Treatment Upcoming Encounters Date Type Department Care Team (Late st Contact Info) Description 01/04/2025 12:00 PM NICKER Office Visit [facility] Oncology and Hematology - [place] [address] [facility] [address] [place] [address] Basil Ludwig MD [address] [facility] [address] [place] [address] Health Maintenance Due Date Last [...]
--- OUTSIDE RECORDS SUMMARY | 2024-12-29 12:48 | XMS_ITS | Clinical Summary ---
Author Organization [facility] Address [address] [place] [address] Care Team Providers Care Corn Sheller Name Role Phone Zafar Reddy MD Primary Care Provider [phone] Allergies Active Allergy Reactions Criticality Noted Date [...] (11/12/2022): Added automatically from request for surgery [id number] Social History Tobacco Use Types Packs/Day Years [...] age to complete this topic Insurance [facility] Care Teams Corn Sheller Relationship Specialty Start Date End Date Zafar Reddy MD [address] [place] [address] PCP - General 05/10/12
--- OUTSIDE RECORDS SUMMARY | 2024-12-29 12:48 | XMS_ITS | Encounter Summary ---
Author Organization [facility] Address [address] [address] [facility] [address] [place] [address] Care Team Providers Care Interventional Technologist Name Role Phone Zafar Reddy MD Primary Care Provider [phone] Sung Mullen MD Primary Care Provider [phone] Zafar Reddy MD Primary Care Provider [phone] Sung Mullen MD Primary Care Provider [phone] Zafar Reddy MD Primary Care Provider [phone] Sung Mullen MD Primary Care Provider [phone] Edy Aviles DO Primary Care Provider [phone] Per Samson MD Primary Care Provider [phone] Coretta Childers MD Unavailable [phone] Tima Henson MD Unavailable [phone] Encounter Details Date Type Department Care Team (Late st Contact Info) Description 03/13/2017 Orders Only [facility] ProviderKamran MD [address] [place] [address] Social History Tobacco Use Types Packs/Day Years Used Date Smoking Tobacco: Every Day Alcohol Use Standard Drinks/Week Comments No 0 (1 standard drink = 0.6 oz pur e alcohol) Comments Unknown Sex and Gender Information Value Date Recorded Sex Assigned at Not on file Legal Sex Female 11:06 AM BARREL BURNER Gender Identity Not on file Sexual Orientation [...] on filedocumented in this encounter Care Teams Interventional Technologist Relationship Specialty Start Date End Date Zafar Reddy MD [address] [place] [address] PCP - General 06/10/12 11/12/20 Sung Mullen MD [address] [place] [address] PCP - General 11/13/20 11/15/20 Zafar Reddy MD [address] [place] [address] PCP - General 11/16/20 11/22/20 Sung Mullen MD [address] [place] [address] PCP - General 11/23/20 11/25/20 Zafar Reddy MD [address] [place] [address] PCP - General 11/26/20 05/20/21 Sung Mullen MD [address] [place] [address] PCP - General Internal Medicine 05/21/21 06/04/22 Edy Aviles DO [address] [place] [address] PCP - General Internal Medicine 06/05/22 05/31/23 Per Samson MD [address] [place] [address] PCP - General Family Practice 06/01/23 Coretta Childers MD [address] [place] [address] Consulting Physician Cardiology 08/28/23 Tima Henson MD [address] [place] [place] [address] Consulting Physician Otolaryngology 08/28/23 documented as of this encounter
--- OUTSIDE RECORDS SUMMARY | 2024-12-29 12:48 | XMS_ITS | Patient Health Summary ---
Author Organization [facility] Address [address] [place] [address] Care Team Providers Care Under Seal Operator Name Role Phone Edy Aviles DO Primary Care Provider [phone] Note from [facility],non-owned Affiliates and Associated Physician Practices is amultiple site organization consisting of ambulatory clinics and hospital sitesin [place], [place], [place] and [place]. This disclosure is being madepursuant to the Care Everywhere program and may not contain all information available regarding this patient. Last updated 18.[facility] Allergies * Codeine(Urticaria,Nausea and/or Vomiting) -Medium [...] Comments Blood Pressure 148/57 10/26/2021 7:27 AM UNDERWRITING ASSISTANT Pulse 95 10/26/2021 7:27 AM UNDERWRITING ASSISTANT Temperature 36.8 C (98.3 F) 10/26/2021 7:27 AM UNDERWRITING ASSISTANT Respiratory Rate 16 10/25/2021 10:58 PM UNDERWRITING ASSISTANT Oxygen Saturation 100% 10/26/2021 7:27 AM UNDERWRITING ASSISTANT Inhaled Oxygen Concentration 40% 10/25/2021 1 2:10 PM UNDERWRITING ASSISTANT Weight 85.7 kg (189 lb) 07/08/2022 9:04 AM CDT Height 156.2 cm (5' 1.5 ) 07/08/2022 9:04 AM CDT Body Mass Index 35.13 07/08/2022 9:04 AM CDT Medical Devices Implanted Type Area Water Resources Engineer Device Identifier Shelf Expiration Date Model / Serial / Lot Pin Hlf 255mm 5mm Jtx Lng Ss 35mm Extfix Implanted:Qty: 2 on 10/11/2021 by Jovon Maloney DO at [facility] Left: [employer] [id number] / / Pin Hlf 40mm 5mm Jtx Lng Ti Ntrd Extfix Implanted:Qty: 2 on 10/11/2021 by Jovon Maloney DO at [facility] Left: [employer] [id number] / / Bar Extfix 200mm Jtx Cfbr Nonster Disp Implanted:Qty: 2 on 10/11/2021 by Jovon Maloney DO at [facility] Left: [employer] [id number] / / Screw 3.5mm 46mm Ft Hex Drv Nlckg Fly Implanted:Qty: 1 on 10/25/2021 by Jovon Maloney DO at [facility] Left: [employer] [id number] / / Screw 3.5mm 50mm Ft Nonlock Hex Drv Elb Implanted:Qty: 2 on 10/25/2021 by Jovon Maloney DO at [facility] Left: [employer] [id number] / / Screw 3.5mm 55mm Ft Slf-Tap Hex Lopro Implanted:Qty: 1 on 10/25/2021 by Jovon Maloney DO at [facility] Left: [employer] 8150-37-055 / / Screw 3.5mm 65mm T15 Lck Slf-Tap Tip Tpr Implanted:Qty: 3 on 10/25/2021 by Jovon Maloney DO at [facility] Left: [employer] [id number] / / Screw 3.5mm 70mm T15 Lck Slf-Tap Tip Tpr Implanted:Qty: 2 on 10/25/2021 by Jovon Maloney, DO at [facility] Left: [employer] [id number] / / Plate 5 Hl Lck Lopro Dist Blt Tip Tib Lt Implanted:Qty: 1 on 10/25/2021 by Jovon Maloney, DO at [facility] Left: [employer] [id number] / / Screw 3.5mm 65mm 2.2mm Mldir Lck Sq Drv Implanted:Qty: 1 on 10/25/2021 by Jovon Maloney, DO at [facility] Left: [employer] [id number] / / Screw 3.5mm 80mm Sq Drv Nonlock Lopro Implanted:Qty: 1 on 10/25/2021 by Jovon Maloney, DO at [facility] Left: [employer] [id number] / / Screw 3.5mm 75mm T15 Lck Slf-Tap Tip Tpr Implanted:Qty: 1 on 10/25/2021 by Jovon Maloney, DO at [facility] Left: [employer] [id number] / / Plate 5 Hl Lopro Lck Ulna Olcrn Dist 61 Implanted:Qty: 1 on 10/25/2021 by Jovon Maloney, DO at [facility] Left: [employer] [id number] / / Screw 3.5mm 34mm Ft Nonlock Hex Drv Elb Implanted:Qty: 1 on 10/25/2021 by Jovon Maloney, DO at [facility] Left: [employer] [id number] / / Screw 3.5mm 38mm Ft Slf-Tap Hex Lopro Implanted:Qty: 1 on 10/25/2021 by Jovon Maloney, DO at [facility] Left: [employer] [id number] / / Screw 3.5mm 40mm Ft Slf-Tap Hex Lopro Implanted:Qty: 1 on 10/25/2021 by Jovon Maloney, DO at [facility] Left: [employer] [id number] / / Explanted Type Area Water Resources Engineer Device Identifier Shelf Expiration Date Model / Serial / Lot Clamp Extfix Jtx 10.5mm Bar To Bar Mr Buitrago Explanted:Qty: 2 on 10/11/2021 at [facility] Left: [employer] [id number] / / Screw 3.5mm 55mm Ft Slf-Tap Hex Lopro Explanted:Qty: 1 on 10/25/2021 by Jovon Maloney DO at [facility] Left: [employer] 8150-37-055 / / Wire K 1.6mm 6in Hlf Bynt Pnt Ss Fx Explanted:Qty: 4 on 10/25/2021 by Jovon Maloney DO at [facility] Left: [employer] [id number] / / Screw 3.5mm 36mm Ft Slf-Tap Hex Lopro Explanted:Qty: 1 on 10/25/2021 by Jovon Maloney DO at [facility] Left: [employer] [id number] / / Procedures * DERMATOPATHOLOGY(Performed 02/23/2024) * [...] is included. Case Report Dermatopathology Report Case: [id number] Authorizing Provider: Israel Lang MD Collected: 02/23/2024 12:00 AM Ordering Location: [facility] - Received: 02/25/2024 06:55 AM DermPath Lab Pathologist: Maryanne Olmos MD Specimens: A) - Skin, right paranasal cheek B) - Skin, right cheek C) - Skin, right parietal scalp 1:[address] [facility] DERMATOPATHOLOGY LABORATORY Final Diagnosis Specimen A. 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 SKIN, right parietal scalp: NEUROFIBROMA (D36.10) 1:[address] [facility] DERMATOPATHOLOGY LABORATORY Clinical History A: R/O BCC vs other B: R/O BCC vs other C: R/O BCC 1:[address] [facility] DERMATOPATHOLOGY LABORATORY Gross Description Specimen [...] five pieces in aggregate shave biopsy measuring [id number] mm. Jar 0. 1:[address] [facility] DERMATOPATHOLOGY LABORATORY Microscopic Description Specimen [...] collagen is delicate and pale. 1:[address] [facility] DERMATOPATHOLOGY LABORATORY Disclaimer An external and internal positive and negative controls are appropriate for the histochemical, immunohistochemical and immunofluorescence stain(s) in this case (if any), except where stated explicitly. The performance characteristics of the stain(s) cited in this report were developed and its performance characteristic determined by the Dermatopathology Laboratory at [facility], directed by Dr. Yessi Jackman. These tests need not be, and therefore are not, approved by the [place] Food and Drug Administration. The tests are used for clinical purposes. Billing Codes Specimen Charges Stain Charges 58781 [id number] 1 1 1 4 1:41 PM CDT [...] - PATHOLOGY/CYTO LOGY ORDERABLES DERMATOPATHOLOGY LABORATORY [facility] - Department of Dermatology [address] [phone] * XR KNEE LEFT 3VW (07/08/2022 9:02 AM CDT) Only the most recent of9 resultswithin the time period is included. Anatomical Region Laterality Modality Lower Extremity Radiographic Courtney ging 07/08/2022 9:33 AM CDT Impressions 07/08/2022 9:41 AM CDT IMPRESSION: Unchanged fracture alignment. > Dictated by Ramonita Hernandez M.D. (residential subcontractor). I, Tramaine Ceron MD have personally reviewed and interpreted this examination/study. > Interpreting Provider: Tramaine Ceron MD on 07/08/2022 9:41 AM Narrative 07/08/2022 9:41 AM CDT PROCEDURE: XR KNEE LEFT 3VW, DATE/TIME OF EXAM: 07/08/2022 9:02 AM, LOCATION [facility] INDICATION: S82.142D: Closed fracture of left tibial [...] DATE/TIME OF EXAM: 07/08/2022 9:02 AM, LOCATION [facility] INDICATION: S82.142D: Closed fracture of left tibial [...] alignment. > Dictated by Ramonita Hernandez M.D. (residential subcontractor). I, Tramaine Ceron MD have personally reviewed and interpreted this examination/study. > Interpreting Provider: Tramaine Ceron MD on 07/08/2022 9:41 AM Jovon Maloney DO DIAGNOSTIC IMAGING O RDERABLES * (ABNORMAL) CBC W/O DIFFERENTIAL (10/26/2021 2:31 AM UNDERWRITING ASSISTANT) Only the most recent of6 resultswithin the time period is included. WBC 12.2(H) 3.5 - 10.5 10 3/uL 10/26/2021 3:15 AM UNDERWRITING ASSISTANT [facility] LABORATORY [facility] RBC 2.39(L) 3.80 - 5.20 10 6/uL 10/26/2021 3:15 AM UNDERWRITING ASSISTANT [facility] LABORATORY [facility] Hemoglobin 7.0(L) 12.0 - 15.6 g/dL 10/26/2021 3:15 AM [facility] Hematocrit 21.7(L) 35.0 - 45.0 % 10/26/2021 3:15 AM [facility] MCV 90.8 80.7 - 98.3 fL 10/26/2021 3:15 AM [facility] MCH 29.3 26.7 - 34.0 pg 10/26/2021 3:15 AM [facility] MCHC 32.3 30.8 - 35.9 g/dL 10/26/2021 3:15 AM [facility] Platelet Count 508(H) 150 - 400 10 3/uL 10/26/2021 3:15 AM [facility] RDW-SD 45.7 36.0 - 50.0 fL 10/26/2021 3:15 AM [facility] RDW-CV 14.1 11.2 - 14.8 % 10/26/2021 3:15 AM [facility] MPV 8.9(L) 9.4 - 12.9 fL 10/26/2021 3:15 AM [facility] nRBC Absolute 0.00 0 10 3/uL 10/26/2021 3:15 AM [facility] nRBC Auto 0.0 0 /100 WBC 10/26/2021 3:15 AM [facility] Blood BLOOD SPECIMEN / Unknown Lab Venipuncture / Unknown 10/26/2021 2:31 AM UNDERWRITING ASSISTANT 10/26/2021 3:01 AM [facility] Jovon Maloney DO LAB - HEMATOLOGY ORD ERABLES Performing Organization Address City/State/[facility] Co de Phone Number [facility] [address] [place] [phone], [facility] [phone] * (ABNORMAL) BASIC METABOLIC PANEL (CALCIUM TOTAL) (10/26/2021 2:31 AM UNDERWRITING ASSISTANT) Only the most recent of6 resultswithin the time period is included. BUN 14 7 - 26 mg/dL 10/26/2021 3:29 AM [facility] Creatinine 0.95 0.56 - 0.96 mg/dL 10/26/2021 3:29 AM [facility] Sodium 134(L) 136 - 145 mmol/L 10/26/2021 3:29 AM [facility] Potassium 4.2 3.5 - 4.5 mmol/L 10/26/2021 3:29 AM [facility] Chloride 102 98 - 107 mmol/L 10/26/2021 3:29 AM [facility] CO2 25 22 - 29 mmol/L 10/26/2021 3:29 AM [facility] Glucose 106 70 - 115 mg/dL 10/26/2021 3:29 AM [facility] Calcium 8.9 8.4 - 10.2 mg/dL 10/26/2021 3:29 AM [facility] Anion Gap 11 8 - 18 10/26/2021 3:29 AM [facility] BUN/Creatinine Ratio 15 7 - 23 10/26/2021 3:29 AM [facility] Osmolality Calculated 279 270 - 300 mOsm/kg 10/26/2021 3:29 AM [facility] eGFR by CKD-EPI 63(L) >=90 mL/min/1.7 3 m2 10/26/2021 3:29 AM [facility] Blood BLOOD SPECIMEN / Unknown Lab Venipuncture / Unknown 10/26/2021 2:31 AM UNDERWRITING ASSISTANT 10/26/2021 3:01 AM UNDERWRITING ASSISTANT Jovon Maloney DO LAB - CHEMISTRY LINCOLNE RADHA [facility] [address] [place] [address], [facility] [phone] * XR KNEE LEFT 2VW OR LESS (10/25/2021 12:05 PM UNDERWRITING ASSISTANT) Only the most recent of2 resultswithin the time period is included. Anatomical Region Laterality Modality Lower Extremity Radiographic Courtney ging 10/25/2021 12:5 9 PM UNDERWRITING ASSISTANT Impressions 10/25/2021 1:00 PM UNDERWRITING ASSISTANT IMPRESSION: Internally fixated tibial plateau fracture. This report was electronically signed by TRAMAINE CERON MD on 10/25/2021 1:00 PM . Narrative 10/25/2021 1:00 PM UNDERWRITING ASSISTANT Exam: XR KNEE LEFT 2VW History: S82.142A: [...] * FL JAQUELIN SURGERY (10/25/2021 11:36 AM UNDERWRITING ASSISTANT) Only the most recent of2 resultswithin the time period is included. Narrative [facility] RADIOLOGY - 10/25/2021 11:37 AM UNDERWRITING ASSISTANT Fluoroscopy was used for this exam in the OR. Please see the Operative report. Jovon Maloney DO FLUOROSCOPY ORDERABL ES [facility] RADIOLOGY * ETT LINE PERFORMABLE (10/25/2021 8:26 AM UNDERWRITING ASSISTANT) Narrative Veto Guzman DO - 10/25/2021 8:26 AM UNDERWRITING ASSISTANT Veto Guzman DO 10/25/2021 8:28 AM Endotracheal Tube Placement: Patient Location: OR. Procedure: intubation ([id number]). Procedure Section: Sedation: under general anesthesia. Indications [...] TYPE + SCREEN PANEL (10/25/2021 6:42 AM UNDERWRITING ASSISTANT) Only the most recent of2 resultswithin the time period is included. [facility] Antibody Screen NEG 7:30 AM UNDERWRITING ASSISTANT [facility] BLOOD BANK LAB ABO Rh O POS 10/25/2021 7:30 AM UNDERWRITING ASSISTANT [facility] BLOOD BANK LAB Blood Bank BLOOD SPECIMEN / Unknown Venipuncture / Unknown 10/25/2021 6:42 AM UNDERWRITING ASSISTANT 10/25/2021 6:51 AM UNDERWRITING ASSISTANT Jovon Maloney DO LAB - BLOOD BANK ORD ERABLES [facility] BLOOD BANK LAB [address] [place] [address], [facility] [phone] * SARS-COV-2 (COVID-19) INTERNAL (10/12/2021 3:49 PM UNDERWRITING ASSISTANT) [facility] COVID-19 PCR Not detected Not detected 10/13/2021 6:[address] [facility] MICROBIOLOGY Microbiology SPECIMEN FROM NASOPHARYNGEAL STRUCTURE / Unknown Collection / Unknown 10/12/2021 3:49 PM UNDERWRITING ASSISTANT 10/12/2021 4:54 PM UNDERWRITING ASSISTANT Narrative [facility] MICROBIOLOGY - 10/13/2021 6:11 AM UNDERWRITING ASSISTANT This nucleic acid amplification assay performance was validated by [facility] Microbiology Laboratory. This test has been [...] Maloney DO LAB - MICROBIOLOGY O RDERABLES [facility] MICROBIOLOGY [address] [place] [address], [facility] [phone] * ETT LINE PERFORMABLE (10/11/2021 11:52 AM UNDERWRITING ASSISTANT) Narrative Sloan Salcedo Anes Asst - 10/11/2021 11:52 AM UNDERWRITING ASSISTANT Sloan Salcedo Anes Asst 10/11/2021 11:53 AM Endotracheal Tube Placement: Patient Location: OR. Intubation Event Date/Time: 10/11/2021 10:59 AM Procedure: intubation ([id number]). Procedure Section: Sedation: under general anesthesia. Indications [...] KNEE LEFT WO CONTRAST (10/10/2021 9:26 PM UNDERWRITING ASSISTANT) Anatomical Region Laterality Modality Lower Extremity Computed Tomogra phy 10/10/2021 9:33 PM UNDERWRITING ASSISTANT Impressions 10/11/2021 9:05 AM UNDERWRITING ASSISTANT Impression: 1.Comminuted moderately displaced tibial plateau fracture involving the medial and lateral plateau articular surfaces. 2.Comminuted mildly displaced fibular head fracture. Report drafted by Oni Rowe (resident) IDr. TRAMAINE MD have personally reviewed and interpreted this examination/study. This report was electronically signed by TRAMAINE CERON MD on 10/11/2021 9:05 AM . Narrative 10/11/2021 9:05 AM UNDERWRITING ASSISTANT Procedure Information DATE: 10/10/2021 9:28 PM EXAMINATION: [...] (COVID-19)+INFLU A+B PCR RAPID (10/10/2021 8:35 PM UNDERWRITING ASSISTANT) COVID-19 PCR Not detected Not detected 10/10/20 9:01 PM [facility] Influenza A Rapid GABRIELA Not Detected Not Detected 10/10/2021 9:01 PM [facility] Influenza B GABRIELA Rapid Not Detected Not Detected 10/10/2021 9:01 PM [facility] Microbiology SPECIMEN FROM NASOPHARYNGEAL STRUCTURE / Unknown Collection / Unknown 10/10/2021 8:35 PM UNDERWRITING ASSISTANT 10/10/2021 8:39 PM UNDERWRITING ASSISTANT [facility] - 10/10/2021 9:01 PM UNDERWRITING ASSISTANT Influenza assay performed by [employer]. [...] amplification assay performance was validated by [facility]. This test has been authorized [...] Maloney DO LAB - MICROBIOLOGY O RDERABLES [address] [address], [facility] [phone] * XR STRESS ANY JOINT (10/10/2021 8:31 PM UNDERWRITING ASSISTANT) Anatomical Region Laterality Modality Lower Extremity, Upper Extremity Radiographic Imaging 10/11/2021 10:1 6 AM UNDERWRITING ASSISTANT Impressions 10/11/2021 10:19 AM UNDERWRITING ASSISTANT IMPRESSION: No change in alignment of the osseous structures of the ankle status post stress. Report dictated by Ramon Burns DO (residential subcontractor) IDr. KIMI MD, FRCR have personally reviewed and interpreted this examination/study. This report was electronically signed by KIMI TELLO MD, FRCR on 10/11/2021 10:19 AM . Narrative 10/11/2021 10:19 AM UNDERWRITING ASSISTANT EXAMINATION: XR STRESS ANY JOINT HISTORY: W11.XXXA: [...] stress. Report dictated by Ramon Burns DO (residential subcontractor) Dr. KIMI Mosley MD, FRCR have personally reviewedand interpreted this examination/study. This report was electronically signed by KIMI TELLO MD, FRROSALBA on 10/11/2021 10:19 AM . Lilliam Aguirre MD DIAGNOSTIC IMAGING O RDERABLES * XR FEMUR LEFT 2VW (10/10/2021 8:31 PM UNDERWRITING ASSISTANT) Anatomical Region Laterality Modality Lower Extremity Radiographic Courtney ging 10/11/2021 10:1 0 AM UNDERWRITING ASSISTANT Impressions 10/11/2021 10:26 AM UNDERWRITING ASSISTANT IMPRESSION: 1.No acute osseous abnormality of the femur. 2.Redemonstrated lateral tibial condyle are fracture and proximal fibular fracture with large joint effusion. Report dictated by Ramon Burns DO (residential subcontractor). Dr. KIMI Mosley MD, FRCR have personally reviewed and interpreted this examination/study. This report was electronically signed by KIMI TELLO MD, FRROSALBA on 10/11/2021 10:26 AM . Narrative 10/11/2021 10:26 AM UNDERWRITING ASSISTANT EXAMINATION: XR FEMUR LEFT 2VW HISTORY: W11.XXXA: [...] effusion. Report dictated by Ramon Burns DO (residential subcontractor). Dr. KIMI Mosley MD, FRCR have personally reviewedand interpreted this examination/study. This report was electronically signed by KIMI TELLO MD, FRCR on 10/11/2021 10:26 AM . Lilliam Aguirre MD DIAGNOSTIC IMAGING O RDERABLES * XR PELVIS 1 OR 2VW (10/10/2021 7:59 PM UNDERWRITING ASSISTANT) Anatomical Region Laterality Modality Pelvis Radiographic Courtney ging 10/11/2021 10:0 4 AM UNDERWRITING ASSISTANT Impressions 10/11/2021 10:52 AM UNDERWRITING ASSISTANT IMPRESSION: No acute fracture identified. Report dictated by Ramon Burns DO (residential subcontractor). Dr. KIMI Mosley MD, FRCR have personally reviewed and interpreted this examination/study. This report was electronically signed by KIMI TELLO MD, FRROSALBA on 10/11/2021 10:52 AM . Narrative 10/11/2021 10:52 AM UNDERWRITING ASSISTANT EXAMINATION: XR PELVIS 1 OR 2VW HISTORY: W11.XXXA: Fall from ladder, initial encounter COMPARISON: Radiograph of the left hip dated 10-29 at 6:43 PM FINDINGS: Instrumented posterior spinal fusion of L4-L5. No acute fracture is identified. The femoral heads appear well-seated within their respective acetabula. The pubic symphysis is intact. Degenerative changes at the bilateral sacroiliac joints. Procedure Note iKmi Tello MD - 10/11/2021 EXAMINATION: XR PELVIS [...] identified. Report dictated by Ramon Burns DO (residential subcontractor). I, Dr. KIMI TELLO MD, FRCR have personally reviewedand interpreted this examination/study. This report was electronically signed by KIMI TELLO MD, FRCR on 10/11/2021 10:52 AM . Lilliam Aguirre MD DIAGNOSTIC IMAGING O RDERABLES * BLOOD TYPE VERIFICATION (10/10/2021 7:08 PM UNDERWRITING ASSISTANT) ABO Rh O POS 10/10/2021 8:0 2 PM UNDERWRITING ASSISTANT [facility] BLOOD BANK LAB Blood Bank BLOOD SPECIMEN / Unknown Lab Venipuncture / Unknown 10/10/2021 7:08 PM UNDERWRITING ASSISTANT 10/10/2021 7:11 PM UNDERWRITING ASSISTANT Lilliam Aguirre MD LAB - BLOOD BANK ORD ERABLES [facility] BLOOD BANK LAB [address] [place] [address], [facility] [phone] * XR HIP 2+ VW LEFT (10/10/2021 6:55 PM UNDERWRITING ASSISTANT) Anatomical Region Laterality Modality Pelvis, Lower Extremity Radiogra phic Imaging 10/10/2021 7:17 PM UNDERWRITING ASSISTANT Impressions 10/11/2021 8:48 AM UNDERWRITING ASSISTANT IMPRESSION: 1.Fracture of the tibial condyles with involvement of the lateral tibial plateau and in the condylar eminence. There is depression of the lateral tibial plateau (approximately 9 mm). 2.Widening of lateral aspect of ankle joint is noted without definite fractures. Dictated by Andre Aguilar DO (residential subcontractor). I, Dr. KIMI TELLO MD, [facility] have personally reviewed and interpreted this examination/study. This report was electronically signed by KIMI TELLO MD, FRCR on 10/11/2021 8:48 AM . Narrative 10/11/2021 8:48 AM UNDERWRITING ASSISTANT EXAMINATION: XR ANKLE LEFT 3VW OR MORE, [...] MORE, XR KNEE LEFT 3VW, XR HIP [id number] OR MORE, XR TIBIA FIBULA LEFT 2VW [...] is noted without definite fractures. Dictated by Anrde Aguilar DO (residential subcontractor). Dr. KIMI Mosley MD, [facility] have personally reviewedand interpreted this examination/study. This report was electronically signed by KIMI TELLO MD, FR on 10/11/2021 8:48 AM . Lilliam Aguirre MD DIAGNOSTIC IMAGING O RDERABLES * XR ANKLE 3+ VW LEFT (10/10/2021 6:55 PM UNDERWRITING ASSISTANT) Anatomical Region Laterality Modality Lower Extremity Radiographic Courtney ging 10/10/2021 7:17 PM UNDERWRITING ASSISTANT Impressions 10/11/2021 8:48 AM UNDERWRITING ASSISTANT IMPRESSION: 1.Fracture of the tibial condyles with involvement of the lateral tibial plateau and in the condylar eminence. There is depression of the lateral tibial plateau (approximately 9 mm). 2.Widening of lateral aspect of ankle joint is noted without definite fractures. Dictated by Andre Aguilar DO (residential subcontractor). Dr. KIMI MosleyVIL, MD, FRROSALBA have personally reviewed and interpreted this examination/study. This report was electronically signed by KIMI TELLO MD, FRROSALBA on 10/11/2021 8:48 AM . Narrative 10/11/2021 8:48 AM UNDERWRITING ASSISTANT EXAMINATION: XR ANKLE LEFT 3VW OR MORE, [...] MORE, XR KNEE LEFT 3VW, XR HIP [id number] OR MORE, XR TIBIA FIBULA LEFT 2VW [...] definite fractures. Dictated by Andre Aguilar DO (residential subcontractor). Dr. KIMI Mosley MD, FRROSALBA have personally reviewedand interpreted this examination/study. This report was electronically signed by KIMI TELLO MD, FRCR on 10/11/2021 8:48 AM . Lilliam Aguirre MD DIAGNOSTIC IMAGING O RDERABLES * XR TIBIA FIBULA LEFT 2VW (10/10/2021 6:54 PM UNDERWRITING ASSISTANT) Anatomical Region Laterality Modality Lower Extremity Radiographic Courtney ging 10/10/2021 7:17 PM UNDERWRITING ASSISTANT Impressions 10/11/2021 8:48 AM UNDERWRITING ASSISTANT IMPRESSION: 1.Fracture of the tibial condyles with involvement of the lateral tibial plateau and in the condylar eminence. There is depression of the lateral tibial plateau (approximately 9 mm). 2.Widening of lateral aspect of ankle joint is noted without definite fractures. Dictated by Andre Aguilar DO (residential subcontractor). Dr. KIMI Mosley MD, FRROSALBA have personally reviewed and interpreted this examination/study. This report was electronically signed by KIMI TELLO MD, FRCR on 10/11/2021 8:48 AM . Narrative 10/11/2021 8:48 AM UNDERWRITING ASSISTANT EXAMINATION: XR ANKLE LEFT 3VW OR MORE, [...] MORE, XR KNEE LEFT 3VW, XR HIP [id number] OR MORE, XR TIBIA FIBULA LEFT 2VW [...] definite fractures. Dictated by Andre Aguilar DO (residential subcontractor). I, Dr. KIMI TELLO MD, [facility] have personally reviewedand interpreted this examination/study. This report was electronically signed by KIMI TELLO MD, FRCR on 10/11/2021 8:48 AM . Lilliam Aguirre MD DIAGNOSTIC IMAGING O RDERABLES * PT-INR [facility] (10/10/2021 6:49 PM UNDERWRITING ASSISTANT) PT 12.1 12.1 - 14.8 Seconds 10/10/2021 7:38 PM [facility] INR 0.9 See Comment 10/10/2021 7:38 PM [facility] Comment:The suggested therap eutic range for standard coumadin (warfarin) therapy is an INR of 2.0-3.0. For high-risk patients (Mechanical Mitral Valve Prosthesis, etc.), the suggested prophylactic therapeutic range is an INR of 2.5-3.5. Blood BLOOD SPECIMEN / Unknown Venipuncture / Unknown 10/10/2021 6:49 PM UNDERWRITING ASSISTANT 10/10/2021 7:28 PM UNDERWRITING ASSISTANT Lilliam Aguirre MD LAB - COAGULATION OR DERABLES [facility] [address] [place] [address], [facility] [phone] * (ABNORMAL) CBC W AUTO DIFFERENTIAL (10/10/2021 6:48 PM UNDERWRITING ASSISTANT) WBC 9.8 3.5 - 10.5 10 3/uL 10/10/2021 7:11 PM UNDERWRITING ASSISTANT [facility] RBC 4.02 3.80 - 5.20 10 6/uL 10/10/2021 7:11 PM [facility] Hemoglobin 11.9(L) 12.0 - 15.6 g/dL 10/10/2021 7:11 PM [facility] Hematocrit 37.4 35.0 - 45.0 % 10/10/2021 7:11 PM [facility] MCV 93.0 80.7 - 98.3 fL 10/10/2021 7:11 PM [facility] MCH 29.6 26.7 - 34.0 pg 10/10/2021 7:11 PM [facility] MCHC 31.8 30.8 - 35.9 g/dL 10/10/2021 7:11 PM [facility] Platelet Count 294 150 - 400 10 3/uL 10/10/2021 7:11 PM [facility] RDW-SD 46.0 36.0 - 50.0 fL 10/10/2021 7:11 PM [facility] RDW-CV 13.4 11.2 - 14.8 % 10/10/2021 7:11 PM [facility] MPV 9.9 9.4 - 12.9 fL 10/10/2021 7:11 PM [facility] nRBC Absolute 0.00 0 10 3/uL 10/10/2021 7:11 PM [facility] nRBC Auto 0.0 0 /100 WBC 10/10/2021 7:11 PM [facility] Neutrophils % 66.2 35.0 - 70.0 % 10/10/2021 7:11 PM [facility] Lymphocytes % 21.3 20.0 - 43.0 % 10/10/2021 7:11 PM [facility] Monocytes % 10.2 5.0 - 13.0 % 10/10/2021 7:11 PM [facility] Eosinophils % 1.7 0.0 - 6.0 % 10/10/2021 7:11 PM [facility] Basophil % 0.3 0.0 - 2.0 % 10/10/2021 7:11 PM [facility] Neutrophils Absolute 6.5 1.6 - 7.0 10 3/uL 10/10/2021 7:11 PM [facility] Lymphocyte Absolute 2.1 1.1 - 3.9 10 3/uL 10/10/2021 7:11 PM [facility] Monocytes Absolute 1.00 0.26 - 1.07 10 3/uL 10/10/2021 7:11 PM [facility] Eosinophils Absolute 0.17 0.00 - 0.47 10 3/uL 10/10/2021 7:11 PM [facility] Basophils Absolute 0.03 0.00 - 0.08 10 3/uL 10/10/2021 7:11 PM [facility] Immature Granulocytes % 0.3 0.0 - 1.0 % 10/10/2021 7:11 PM [facility] Immature Granulocytes Absolute 0.03 10/10/2021 7:11 PM [facility] Blood BLOOD SPECIMEN / Unknown Venipuncture / Unknown 10/10/2021 6:48 PM UNDERWRITING ASSISTANT 10/10/2021 7:01 PM UNDERWRITING ASSISTANT Lilliam Aguirre MD LAB - HEMATOLOGY ORD ERABLES Performing Organization Address [facility] Co de Phone Number [address] [phone] [phone] * (ABNORMAL) COMPREHENSIVE METABOLIC PANEL (10/10/2021 6:48 PM UNDERWRITING ASSISTANT) BUN 19 7 - 26 mg/dL 10/10/2021 7:25 PM [facility] Creatinine 1.18(H) 0.56 - 0.96 mg/dL 10/10/2021 7:25 PM [facility] Sodium 142 136 - 145 mmol/L 10/10/2021 7:25 PM [facility] Potassium 3.7 3.5 - 4.5 mmol/L 10/10/2021 7:25 PM [facility] Chloride 106 98 - 107 mmol/L 10/10/2021 7:25 PM [facility] CO2 22 22 - 29 mmol/L 10/10/2021 7:25 PM [facility] Glucose 99 70 - 115 mg/dL 10/10/2021 7:25 PM [facility] Calcium 9.9 8.4 - 10.2 mg/dL 10/10/2021 7:25 PM [facility] Protein Total 6.8 6.0 - 8.3 g/dL 10/10/2021 7:25 PM [facility] Albumin 3.6 3.4 - 5.0 g/dL 10/10/2021 7:25 PM [facility] Bilirubin Total 0.2 0.2 - 1.2 mg/dL 10/10/2021 7:25 PM [facility] Alkaline Phosphatase 93 40 - 150 U/L 10/10/2021 7:25 PM [facility] ALT 24 5 - 55 U/L 10/10/2021 7:25 PM [facility] AST 30 5 - 34 U/L 10/10/2021 7:25 PM [facility] Anion Gap 18 8 - 18 10/10/2021 7:25 PM [facility] BUN/Creatinine Ratio 16 7 - 23 10/10/2021 7:25 PM [facility] Osmolality Calculated 296 270 - 300 mOsm/kg 10/10/2021 7:25 PM [facility] Albumin/Globulin Ratio 1.1 1.1 - 2.3 10/10/2021 7:25 PM [facility] eGFR by CKD-EPI 48(L) >=90 mL/min/1.7 3 m2 10/10/2021 7:25 PM [facility] Blood BLOOD SPECIMEN / Unknown Venipuncture / Unknown 10/10/2021 6:48 PM UNDERWRITING ASSISTANT 10/10/2021 7:01 PM UNDERWRITING ASSISTANT Lilliam Aguirre MD LAB - CHEMISTRY JOCELYNN GARCIA [facility] Organization Address City/State/[facility] Co de Phone Number [address] [address], [facility] [phone] * CULTURE MRSA (09/25/2014 9:07 AM UNDERWRITING ASSISTANT) Culture MRSA Screen No Growth of Methicillin Resistant Staphylococcus aureus. [facility] Nasopharyngeal 09/25/2014 9: 07 AM UNDERWRITING ASSISTANT 09/25/2014 3:16 PM UNDERWRITING ASSISTANT Narrative [facility] - 09/26/2014 11:18 AM UNDERWRITING ASSISTANT AshokSpecimen#[id number] Ashok Loc/Rm/Bed: OP SGPREOP// Historical Provider LAB - MICROBIOLOG Y ORDERABLES [facility] LABORATORY [facility] [address] [phone] Care Teams Under Seal Operator Relationship Specialty Start Date End Date Edy Aviles DO [address] [place] [address] PCP - General 06/17/22
--- OUTSIDE RECORDS SUMMARY | 2024-12-29 12:48 | XMS_ITS | Encounter Summary ---
Author Organization [facility] Address [address] [facility] [place] [address] Care Team Providers Care Transactional Attorney Name Role Phone Edy Aviles DO Primary Care Provider [phone] Encounter Details Date Type Department Care Team (Late st Contact Info) Description 12/19/2020 Lab Requisition [facility] DermPath Lab [address] [facility], [facility] [place] [id number] [place] [address] Social History Tobacco Use Types Packs/Day Years [...] Comments DERMATOPATHOLOGY Routine 12/18/2020 12:0 0 AM PROJECT CONSTRUCTION MANAGER documented in this encounter Results * DERMATOPATHOLOGY (12/18/2020 12:00 AM PROJECT CONSTRUCTION MANAGER) Case Report Dermatopathology Report Case: [id number] Authorizing Provider: Israel Lang MD Collected: 12/18/2020 12:00 AM Ordering Location: [facility] DermPath Lab Received: 12/19/2020 11:37 AM Pathologist: Nata Olmos MD Specimen: Skin, left ear superior rim 4:54 PM [facility] DERMATOPATHOLOGY LABORATORY Final Diagnosis Specimen A. 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 4:54 PM [facility] DERMATOPATHOLOGY LABORATORY Gross Description Specimen A: Received is one formalin filled container labeled with the patient's name and designated left ear superior rim. The specimen consists of a shave biopsy (4 pieces) measuring 7r8y9xl, 2n4i4zd, 6j4l4ev, & 6s8n6pp. Jar 0. 4:54 PM PROJECT CONSTRUCTION MANAGER DERMATOPATHOLOGY LABORATORY Microscopic Description Specimen A. SKIN, left ear superior rim: There is epidermal hyperplasia overlying dilated blood vessels and fibroplasia. 4:54 PM [facility] DERMATOPATHOLOGY LABORATORY Disclaimer An external and internal positive and negative controls are appropriate for the histochemical, immunohistochemical and immunofluorescence stain(s) in this case (if any), except where stated explicitly. The performance characteristics of the stain(s) cited in this report were developed and its performance characteristic determined by the Dermatopathology Laboratory at [facility], directed by Dr. Yessi Jackman. These tests need not be, and therefore are not, approved by the [place] Food and Drug Administration. The tests are used for clinical purposes. Billing Codes Specimen Charges Stain Charges 73360 1 4:54 PM [facility] DERMATOPATHOLOGY LABORATORY Embedded Images 4:54 PM [facility] DERMATOPATHOLOGY LABORATORY Pathology/Cytolog y TISSUE SPECIMEN FROM SKIN / Unknown 12/18/2020 12/19/2020 11:37 AM [facility] Israel Lang MD LAB - PATHOLOGY/CYTO LOGY ORDERABLES DERMATOPATHOLOGY LABORATORY [facility] - Department of Dermatology [address] [phone] documented in this encounter Visit Diagnoses Not on filedocumented in this encounter Care Teams Transactional Attorney Relationship Specialty Start Date End Date Edy Aviles DO [address] [place] [address] PCP - General 06/17/22 documented as of this encounter
--- NOTE | 2024-12-29 12:53 | ECG_ITS ---
Test Date: 2024-12-29 13:05:23 Measurements Intervals [place] Rate: 91 P: 63 NE: 164 QRS: 63 QRSD: 93 T: 76 QT: 364 QTc: 450 Interpretive Statements SINUS RHYTHM BORDERLINE T WAVE ABNORMALITY- ANTERIOR LEADS BASELINE ARTIFACT- I, II, III, AVR, AVL, AVF BORDERLINE ECG No previous ECG available for comparison Electronically Signed On 12-29-2024 13:37:02 FINANCE VICE PRESIDENT by Bradly Jackson D.O.
== END 2024-12-29 12:36 | disposition home or self-care (01) ==
LOC: ANHSURGERY 12:45
PROVIDERS: PCP Family Medicine; Visit Provider Surgery
DX: E78.00 Pure hypercholesterolemia, unspecified (principal); Z01.818 Encounter for other preprocedural examination
CPT/HCPCS: 93005

== ENCOUNTER 2025-01-02 02:47 | Day surgery (SDC) | payer MEDICARE, SELFPAY ==
--- NOTE | 2024-12-22 12:54 | PC.NURSE ---
Report to the Outpatient Waiting Room, entrance under the green pavilion located off [facility], at time _10 AM on date _01/02/25 . Planned Procedure Time: __1200 NOON .? Time changes happen often and if your time is changed the preop area will call you the afternoon before. - You and your visitor will be asked to self-screen and do not enter if you have any COVID symptoms. Please call surgeon if you need to reschedule. - A mask is optional within the hospital at this time. Patients may have clear liquids (water, carbonated beverages, clear teas, apple juice) until 3 hours prior to surgery ( 9AM)with a maximum of 20 ounces. - No food from midnight until time of surgery and no smoking, or chewing tobacco (or any form of nicotine). No chewing gum, candy or mints. Take only the following medications with a SIP of water on the morning of surgery: ___EYE DROP DO NOT STOP ANY OF YOUR OTHER PRESCRIPTION MEDICATIONS PRIOR TO SURGERY EXCEPT THE FOLLOWING Hold all vitamins and supplements for 3 days per anesthesiologist. LAST DOSE 12/29/24 Medications to discontinue per physician NONE Please no make-up, nail malaysian, hairspray, perfume, deodorant, or body powder the day of surgery.? No jewelry (including any body piercings) or valuables the day of surgery, leave them at home.? Please take a shower or bath the night before, or the morning of, surgery with an antibacterial soap.? Wear comfortable, loose fitting clothing.? Children are encouraged to wear pajamas. - Jewelry must be removed prior to entering the operating room.? Rings and piercings that are not removed may be cut off. - The hospital will not accept responsibility for valuables.? - Please leave all valuables, including medications, at home the day of surgery. If you are going home after surgery, a licensed grain combine driver must drive you home.? - NO public transportation without another adult if you receive anesthesia. - We recommend that an adult stay with you for 24 hours following discharge. - We also recommend that you do not drive, make important decision, drink alcoholic beverages, or take any drugs that were not prescribed by your health care provider for at least 24 hours after your discharge time. Follow any additional instructions given to you from your surgeon. Telephone instructions given to __PATIENT and asked if any additional questions and then verbalized understanding. Patient advised to call surgeon office or pre surgery nurse liaison [phone] if any additional questions.
[2024-12-22 13:26] VITALS: BMI 31.0
[2025-01-02] VITALS (9 sets, daily range): BP systolic 104–151; BP diastolic 39–92; PULSE 86–104; RESP 12–18; TEMP 36.1–36.5; O2SAT 96–100
--- NOTE | ~2025-01-02 | XR_ITS ---
INTRAOPERATIVE FLUOROSCOPY: CLINICAL HISTORY: 69 years old Female; INSERTION FLORINA CATH PROCEDURE COMMENTS: Limited intraoperative fluoroscopy of the chest was performed. CUMULATIVE DOSE: 0.9 mGy FLUOROSCOPY TIME: 5.6 seconds FINDINGS/IMPRESSION: Please refer to operative note for further details. Reviewed, dictated and finalized at location A. OR LEGAL SECRETARY
--- NOTE | ~2025-01-02 | XR_ITS ---
CHEST RADIOGRAPH CLINICAL HISTORY: POST INSERTION FLORINA CATH . COMPARISON: 11/10/2024 TECHNIQUE: Single portable view of the chest. FINDINGS Left internal jugular central venous power port catheter identified with its tip projecting over the superior vena cava. Loop recorder projects to the left of midline. The remainder of the cardiomediastinal silhouette is otherwise unremarkable. The lungs are clear. IMPRESSION: Interval placement of a left internal jugular central venous power port catheter, in position and rayo dy for immediate use. Reviewed, dictated and finalized at location A. GRINDER OPERATOR IMPRESSION: Interval placement of a left internal jugular central venous power port cathete r, in position and ready for immediate use.
--- OUTSIDE RECORDS SUMMARY | 2025-01-02 02:52 | XMS_ITS | Clinical Summary ---
Author Organization [facility] Address [address] [place] [address] Care Team Providers Care Bridge/Structure Inspection Team Leader Name Role Phone Edy Aviles DO Primary Care Provider [phone] Source Comments [facility],non-owned Affiliates and Associated Physician Practices is amultiple site organization consisting of ambulatory clinics and hospital sitesin [place], [place], [place] and [place]. This disclosure is being madepursuant to the Care Everywhere program and may not contain all information available regarding this patient. 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 Medical Devices Implanted Type Area Peoplesoft Analyst Device Identifier Shelf Expiration Date Model / Serial / Lot Pin Hlf 255mm 5mm Jtx Lng Ss 35mm Extfix Implanted:Qty: 2 on 10/11/2021 by Jovon Maloney, DO at [facility] Left: [employer] [id number] / / Pin Hlf 40mm 5mm Jtx Lng Ti Ntrd Extfix Implanted:Qty: 2 on 10/11/2021 by Jovon Maloney, DO at [facility] Left: [employer] [id number] / / Bar Extfix 200mm Jtx Cfbr Nonster Disp Implanted:Qty: 2 on 10/11/2021 by Jovon Maloney, DO at [facility] Left: [employer] [id number] / / Screw 3.5mm 46mm Ft Hex Drv Nlckg Fly Implanted:Qty: 1 on 10/25/2021 by Jovon Maloney, at [facility] Left: [employer] [id number] / / Screw 3.5mm 50mm Ft Nonlock Hex Drv Elb Implanted:Qty: 2 on 10/25/2021 by Jovon Maloney DO at [facility] Left: [employer] [id number] / / Screw 3.5mm 55mm Ft Slf-Tap Hex Lopro Implanted:Qty: 1 on 10/25/2021 by Jovon Maloney, DO at [facility] Left: [employer] 8150-37-055 / / Screw 3.5mm 65mm T15 Lck Slf-Tap Tip Tpr Implanted:Qty: 3 on 10/25/2021 by Jovon Maloney DO at [facility] Left: [employer] 8161-35-065 / / Screw 3.5mm 70mm T15 Lck Slf-Tap Tip Tpr Implanted:Qty: 2 on 10/25/2021 by Jovon Maloney, at [facility] Left: [employer] [id number] / / Plate 5 Hl Lck Lopro Dist Blt Tip Tib Lt Implanted:Qty: 1 on 10/25/2021 by Jovon Maloney, at [facility] Left: [employer] [id number] / / Screw 3.5mm 65mm 2.2mm Mldir Lck Sq Drv Implanted:Qty: 1 on 10/25/2021 by Jovon Maloney, at [facility] Left: [employer] [id number] / / Screw 3.5mm 80mm Sq Drv Nonlock Lopro Implanted:Qty: 1 on 10/25/2021 by Jovon Maloney DO at [facility] Left: [employer] [id number] / / Screw 3.5mm 75mm T15 Lck Slf-Tap Tip Tpr Implanted:Qty: 1 on 10/25/2021 by Jovon Maloney DO at [facility] Left: [employer] [id number] / / Plate 5 Hl Lopro Lck Ulna Olcrn Dist 61 Implanted:Qty: 1 on 10/25/2021 by Jovon Maloney DO at [facility] Left: [employer] [id number] / / Screw 3.5mm 34mm Ft Nonlock Hex Drv Elb Implanted:Qty: 1 on 10/25/2021 by Jovon Maloney DO at [facility] Left: [employer] [id number] / / Screw 3.5mm 38mm Ft Slf-Tap Hex Lopro Implanted:Qty: 1 on 10/25/2021 by Jovon Maloney DO at [facility] Left: [employer] [id number] / / Screw 3.5mm 40mm Ft Slf-Tap Hex Lopro Implanted:Qty: 1 on 10/25/2021 by Jovon Maloney DO at [facility] Left: [employer] [id number] / / Explanted Type Area Peoplesoft Analyst Device Identifier Shelf Expiration Date Model / Serial / Lot Clamp Extfix Jtx 10.5mm Bar To Bar Mr Buitrago Explanted:Qty: 2 on 10/11/2021 at [facility] Left: [employer] [id number] / / Screw 3.5mm 55mm Ft Slf-Tap Hex Lopro Explanted:Qty: 1 on 10/25/2021 by Jovon Maloney DO at [facility] Left: [employer] 8150-37-055 / / Wire K 1.6mm 6in Hlf By Pnt Ss Fx Explanted:Qty: 4 on 10/25/2021 by Jovon Maloney DO at [facility] Left: [employer] [id number] / / Screw 3.5mm 36mm Ft Slf-Tap Hex Lopro Explanted:Qty: 1 on 10/25/2021 by Jovon Maloney DO at [facility] Left: [employer] [id number] / / Procedures Procedure Name Priority Date/Time Associated Diagnosis Comments BASIC METABOLIC PANEL (CALCIUM TOTAL) Routine 10/26/2021 2:31 AM SEWER AND DRAIN TECHNICIAN Closed fracture of left tibial plateau, initial encounter from Last 3 Months or Most Recently Relevant to Health Maintenance Results * (ABNORMAL) BASIC METABOLIC PANEL (CALCIUM TOTAL) (10/26/2021 2:31 AM SEWER AND DRAIN TECHNICIAN) BUN 14 7 - 26 mg/dL 10/26/2021 3:29 AM [facility] Creatinine 0.95 0.56 - 0.96 mg/dL 10/26/2021 3:29 AM [facility] Sodium 134(L) 136 - 145 mmol/L 10/26/2021 3:29 AM [facility] Potassium 4.2 3.5 - 4.5 mmol/L 10/26/2021 3:29 AM [facility] Chloride 102 98 - 107 mmol/L 10/26/2021 3:29 AM [facility] CO2 25 22 - 29 mmol/L 10/26/2021 3:29 AM [facility] Glucose 106 70 - 115 mg/dL 10/26/2021 3:29 AM [facility] Calcium 8.9 8.4 - 10.2 mg/dL 10/26/2021 3:29 AM [facility] Anion Gap 11 8 - 18 10/26/2021 3:29 AM [facility] BUN/Creatinine Ratio 15 7 - 23 10/26/2021 3:29 AM [facility] Osmolality Calculated 279 270 - 300 mOsm/kg 10/26/2021 3:29 AM [facility] eGFR by CKD-EPI 63(L) >=90 mL/min/1.7 3 m2 10/26/2021 3:29 AM [facility] Blood BLOOD SPECIMEN / Unknown Lab Venipuncture / Unknown 10/26/2021 2:31 AM SEWER AND DRAIN TECHNICIAN 10/26/2021 3:01 AM [facility] Jovon Maloney DO LAB - CHEMISTRY JOCELYNN GARCIA [facility] [address] [place] [address], [facility] [phone] from Last 3 Months or Most Recently Relevant to Health Maintenance Advance Directives * Full Code (Latest Code Status on File) Date Activated Date Inactivated Comments 10/25/2021 1:30 PM 10/26/2021 1:32 PM * Full Code Date Activated Date Inactivated Comments 10/11/2021 12:36 PM 10/15/2021 3:44 PM Care Teams Bridge/Structure Inspection Team Leader Relationship Specialty Start Date End Date Edy Aviles DO [address] [place], [place] [id number] PCP - General 06/17/22
--- OUTSIDE RECORDS SUMMARY | 2025-01-02 02:52 | XMS_ITS | Clinical Summary ---
Author Organization [facility] Jareth kay [facility] Address [address] [facility] [place] [address] Care Team Providers Care Vat Skimmer Name Role Phone Unavailable Primary Care Provider Unavailabl e Social History Tobacco Use Types Packs/Day Years Used Date Smoking Tobacco: Never Assessed Comments Unknown Sex and Gender Information Value Date Recorded Sex Assigned at Not on file Legal Sex Female 2:15 PM OPERATIONS TECHNICIAN Gender Identity Not on file Sexual Orientation Not on file Plan of Treatment Upcoming Encounters Date Type Department Care Team (Late st Contact Info) Description 01/04/2025 12:00 PM OPERATIONS TECHNICIAN Office Visit [facility] Oncology and Hematology - Ashok [address] [facility] [address] [place] [address] Basil Ludwig MD [address] [facility] [address] [place] [address] Health Maintenance Due Date Last [...]
--- OUTSIDE RECORDS SUMMARY | 2025-01-02 02:52 | XMS_ITS | Encounter Summary ---
Author Organization [facility] Address [address] [place] [address] Care Team Providers Care Anesthesiology Faculty Name Role Phone Edy Aviles DO Primary Care Provider [phone] Encounter Details Date Type Department Care Team (Late st Contact Info) Description 12/19/2020 Lab Requisition [facility] DermPath Lab [address] [facility], [facility] [place] [id number] [place] [address] Social History Tobacco Use Types Packs/Day Years [...] Comments DERMATOPATHOLOGY Routine 12/18/2020 12:0 0 AM MUTUEL TELLER documented in this encounter Results * DERMATOPATHOLOGY (12/18/2020 12:00 AM MUTUEL TELLER) Case Report Dermatopathology Report Case: [id number] Authorizing Provider: Israel Lang MD Collected: 12/18/2020 12:00 AM Ordering Location: [facility] DermPath Lab Received: 12/19/2020 11:37 AM Pathologist: Nata Olmos MD Specimen: Skin, left ear superior rim 4:54 PM [facility] DERMATOPATHOLOGY LABORATORY Final Diagnosis Specimen A. 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 4:54 PM [facility] DERMATOPATHOLOGY LABORATORY Gross Description Specimen A: Received is one formalin filled container labeled with the patient's name and designated left ear superior rim. The specimen consists of a shave biopsy (4 pieces) measuring 4j6i2tg, 0u1l1dw, 3j9o7av, & 3o9z3cf. Jar 0. 4:54 PM MUTUEL TELLER DERMATOPATHOLOGY LABORATORY Microscopic Description Specimen A. SKIN, left ear superior rim: There is epidermal hyperplasia overlying dilated blood vessels and fibroplasia. 4:54 PM [facility] DERMATOPATHOLOGY LABORATORY Disclaimer An external and internal positive and negative controls are appropriate for the histochemical, immunohistochemical and immunofluorescence stain(s) in this case (if any), except where stated explicitly. The performance characteristics of the stain(s) cited in this report were developed and its performance characteristic determined by the Dermatopathology Laboratory at [facility], directed by Dr. Yessi Jackman. These tests need not be, and therefore are not, approved by the [place] Food and Drug Administration. The tests are used for clinical purposes. Billing Codes Specimen Charges Stain Charges 56867 1 4:54 PM [facility] DERMATOPATHOLOGY LABORATORY Embedded Images 4:54 PM [facility] DERMATOPATHOLOGY LABORATORY Pathology/Cytolog y TISSUE SPECIMEN FROM SKIN / Unknown 12/18/2020 12/19/2020 11:37 AM [facility] Israel Lang MD LAB - PATHOLOGY/CYTO LOGY ORDERABLES DERMATOPATHOLOGY LABORATORY [facility] - Department of Dermatology [address] [phone] documented in this encounter Visit Diagnoses Not on filedocumented in this encounter Care Teams Anesthesiology Faculty Relationship Specialty Start Date End Date Edy Aviles DO [address] [place] [address] PCP - General 06/17/22 documented as of this encounter
--- OUTSIDE RECORDS SUMMARY | 2025-01-02 02:52 | XMS_ITS | Clinical Summary ---
Author Organization [facility] Address [address] [place] [address] Care Team Providers Care Socket Puller Name Role Phone Zafar Reddy MD Primary Care Provider [phone] Allergies Active Allergy Reactions Criticality Noted Date [...] (11/12/2022): Added automatically from request for surgery [id number] Social History Tobacco Use Types Packs/Day Years [...] age to complete this topic Insurance MEDICARE [facility] Care Teams Socket Puller Relationship Specialty Start Date End Date Zafar Reddy MD [address] [place] [id number] PCP - General 05/10/12
--- OUTSIDE RECORDS SUMMARY | 2025-01-02 02:52 | XMS_ITS | Patient Health Summary ---
Author Organization [facility] Address [address] [place] [address] Care Team Providers Care Glove Cutter Name Role Phone Edy Aviles DO Primary Care Provider [phone] Note from [facility],non-owned Affiliates and Associated Physician Practices is amultiple site organization consisting of ambulatory clinics and hospital sitesin [place] and [place]. This disclosure is being madepursuant to the Care Everywhere program and may not contain all information available regarding this patient. Last updated 18.[facility] Allergies * Codeine(Urticaria,Nausea and/or Vomiting) -Medium [...] Comments Blood Pressure 148/57 10/26/2021 7:27 AM ORNAMENTAL IRON WORKER Pulse 95 10/26/2021 7:27 AM ORNAMENTAL IRON WORKER Temperature 36.8 C (98.3 F) 10/26/2021 7:27 AM ORNAMENTAL IRON WORKER Respiratory Rate 16 10/25/2021 10:58 PM ORNAMENTAL IRON WORKER Oxygen Saturation 100% 10/26/2021 7:27 AM ORNAMENTAL IRON WORKER Inhaled Oxygen Concentration 40% 10/25/2021 1 2:10 PM ORNAMENTAL IRON WORKER Weight 85.7 kg (189 lb) 07/08/2022 9:04 AM CDT Height 156.2 cm (5' 1.5 ) 07/08/2022 9:04 AM CDT Body Mass Index 35.13 07/08/2022 9:04 AM CDT Medical Devices Implanted Type Area Scarf And Anneal Operator Device Identifier Shelf Expiration Date Model / Serial / Lot Pin Hlf 255mm 5mm Jtx Lng Ss 35mm Extfix Implanted:Qty: 2 on 10/11/2021 by Jovon Maloney DO at [facility] Left: [employer] [id number] / / Pin Hlf 40mm 5mm Jtx Lng Ti Ntrd Extfix Implanted:Qty: 2 on 10/11/2021 by Jovon Maloney DO at [facility] Left: [employer] [id number] / / Bar Extfix 200mm Jtx Cfbr Nonster Disp Implanted:Qty: 2 on 10/11/2021 by Jovon Maloney DO at [facility] Left: [employer] [id number] / / Screw 3.5mm 46mm Ft Hex Drv Nlckg Fly Implanted:Qty: 1 on 10/25/2021 by Jovon Maloney DO at [facility] Left: [employer] [id number] / / Screw 3.5mm 50mm Ft Nonlock Hex Drv Elb Implanted:Qty: 2 on 10/25/2021 by Jovon Maloney DO at [facility] Left: [employer] [id number] / / Screw 3.5mm 55mm Ft Slf-Tap Hex Lopro Implanted:Qty: 1 on 10/25/2021 by Jovon Maloney DO at [facility] Left: [employer] [id number] / / Screw 3.5mm 65mm T15 Lck Slf-Tap Tip Tpr Implanted:Qty: 3 on 10/25/2021 by Jovon Maloney DO at [facility] Left: [employer] [id number] / / Screw 3.5mm 70mm T15 Lck Slf-Tap Tip Tpr Implanted:Qty: 2 on 10/25/2021 by Jovon Maloney, DO at [facility] Left: [employer] [id number] / / Plate 5 Hl Lck Lopro Dist Blt Tip Tib Lt Implanted:Qty: 1 on 10/25/2021 by Jovon Maloney, DO at [facility] Left: [employer] [id number] / / Screw 3.5mm 65mm 2.2mm Mldir Lck Sq Drv Implanted:Qty: 1 on 10/25/2021 by Jovon Maloney, DO at [facility] Left: [employer] [id number] / / Screw 3.5mm 80mm Sq Drv Nonlock Lopro Implanted:Qty: 1 on 10/25/2021 by Jovon Maloney, DO at [facility] Left: [employer] 1312-18-080 / / Screw 3.5mm 75mm T15 Lck Slf-Tap Tip Tpr Implanted:Qty: 1 on 10/25/2021 by Jovon Maloney, DO at [facility] Left: [employer] [id number] / / Plate 5 Hl Lopro Lck Ulna Olcrn Dist 61 Implanted:Qty: 1 on 10/25/2021 by Jovon Maloney, DO at [facility] Left: [employer] [id number] / / Screw 3.5mm 34mm Ft Nonlock Hex Drv Elb Implanted:Qty: 1 on 10/25/2021 by Jovon Maloney, DO at [facility] Left: [employer] [id number] / / Screw 3.5mm 38mm Ft Slf-Tap Hex Lopro Implanted:Qty: 1 on 10/25/2021 by Jovon Maloney, DO at [facility] Left: [employer] [id number] / / Screw 3.5mm 40mm Ft Slf-Tap Hex Lopro Implanted:Qty: 1 on 10/25/2021 by Jovon Maloney, DO at [facility] Left: [employer] [id number] / / Explanted Type Area Scarf And Anneal Operator Device Identifier Shelf Expiration Date Model / Serial / Lot Clamp Extfix Jtx 10.5mm Bar To Bar Mr Buitrago Explanted:Qty: 2 on 10/11/2021 at [facility] Left: [employer] [id number] / / Screw 3.5mm 55mm Ft Slf-Tap Hex Lopro Explanted:Qty: 1 on 10/25/2021 by Jovon Mlaoney DO at [facility] Left: [employer] [id number] / / Wire K 1.6mm 6in Hlf Bynt Pnt Ss Fx Explanted:Qty: 4 on 10/25/2021 by Jovon Maloney DO at [facility] Left: [employer] [id number] / / Screw 3.5mm 36mm Ft Slf-Tap Hex Lopro Explanted:Qty: 1 on 10/25/2021 by Jovon Maloney DO at [facility] Left: [employer] [id number] / / Procedures * DERMATOPATHOLOGY(Performed 02/23/2024) * [...] is included. Case Report Dermatopathology Report Case: [id number] Authorizing Provider: Israel Lang MD Collected: 02/23/2024 12:00 AM Ordering Location: [facility] - Received: 02/25/2024 06:55 AM DermPath Lab Pathologist: Maryanne Olmos MD Specimens: A) - Skin, right paranasal cheek B) - Skin, right cheek C) - Skin, right parietal scalp 1:41 PM [facility] Final Diagnosis Specimen A. 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 SKIN, right parietal scalp: NEUROFIBROMA (D36.10) 1:41 PM [facility] Clinical History A: R/O BCC vs other B: R/O BCC vs other C: R/O BCC 1:41 PM [facility] Gross Description Specimen A: Received [...] five pieces in aggregate shave biopsy measuring 24g52x0 mm. Jar 0. 1:41 PM [facility] Microscopic Description Specimen A. SKIN, [...] collagen is delicate and pale. 1:41 PM [facility] Disclaimer An external and internal positive and negative controls are appropriate for the histochemical, immunohistochemical and immunofluorescence stain(s) in this case (if any), except where stated explicitly. The performance characteristics of the stain(s) cited in this report were developed and its performance characteristic determined by the Dermatopathology Laboratory at [facility], directed by Dr. Yessi Jackman. These tests need not be, and therefore are not, approved by the [place] Food and Drug Administration. The tests are used for clinical purposes. Billing Codes Specimen Charges Stain Charges 57997 [id number] 1 1 1 4 1:41 PM CDT [...] LAB - PATHOLOGY/CYTO LOGY ORDERABLES DERMATOPATHOLOGY LABORATORY [facility] - Department of Dermatology [address] [phone] * XR KNEE LEFT 3VW (07/08/2022 9:02 AM CDT) Only the most recent of9 resultswithin the time period is included. Anatomical Region Laterality Modality Lower Extremity Radiographic Courtney ging 07/08/2022 9:33 AM CDT Impressions 07/08/2022 9:41 AM CDT IMPRESSION: Unchanged fracture alignment. > Dictated by Ramonita Hernandez M.D. (resident services supervisor). I, Tramaine Ceron MD have personally reviewed and interpreted this examination/study. > Interpreting Provider: Tramaine Ceron MD on 07/08/2022 9:41 AM Narrative 07/08/2022 9:41 AM CDT PROCEDURE: XR KNEE LEFT 3VW, DATE/TIME OF EXAM: 07/08/2022 9:02 AM, LOCATION [facility] INDICATION: S82.142D: Closed fracture of left [...] DATE/TIME OF EXAM: 07/08/2022 9:02 AM, LOCATION [facility] INDICATION: S82.142D: Closed fracture of left [...] Dictated by Ramonita Hernandez M.D. (resident services supervisor). I, Tramaine Ceron MD have personally reviewed and interpreted this examination/study. > Interpreting Provider: Tramaine Ceron MD on 07/08/2022 9:41 AM Jovon Maloney DO DIAGNOSTIC IMAGING O RDERABLES * (ABNORMAL) CBC W/O DIFFERENTIAL (10/26/2021 2:31 AM ORNAMENTAL IRON WORKER) Only the most recent of6 resultswithin the time period is included. WBC 12.2(H) 3.5 - 10.5 10 3/uL 10/26/2021 3:15 AM ORNAMENTAL IRON WORKER [facility] RBC 2.39(L) 3.80 - 5.20 10 6/uL 10/26/2021 3:15 AM ORNAMENTAL IRON WORKER [facility] Hemoglobin 7.0(L) 12.0 - 15.6 g/dL 10/26/2021 3:15 AM [facility] Hematocrit 21.7(L) 35.0 - 45.0 % 10/26/2021 3:15 AM [facility] MCV 90.8 80.7 - 98.3 fL 10/26/2021 3:15 AM [facility] MCH 29.3 26.7 - 34.0 pg 10/26/2021 3:15 AM [facility] MCHC 32.3 30.8 - 35.9 g/dL 10/26/2021 3:15 AM [facility] Platelet Count 508(H) 150 - 400 10 3/uL 10/26/2021 3:15 AM [facility] RDW-SD 45.7 36.0 - 50.0 fL 10/26/2021 3:15 AM [facility] RDW-CV 14.1 11.2 - 14.8 % 10/26/2021 3:15 AM [facility] MPV 8.9(L) 9.4 - 12.9 fL 10/26/2021 3:15 AM [facility] nRBC Absolute 0.00 0 10 3/uL 10/26/2021 3:15 AM [facility] nRBC Auto 0.0 0 /100 WBC 10/26/2021 3:15 AM [facility] Blood BLOOD SPECIMEN / Unknown Lab Venipuncture / Unknown 10/26/2021 2:31 AM ORNAMENTAL IRON WORKER 10/26/2021 3:01 AM [facility] Jovon Maloney DO LAB - HEMATOLOGY ORD ERABLES Performing Organization Address City/State/[facility] Co de Phone Number [facility] [address] [place] [phone], [facility] [phone] * (ABNORMAL) BASIC METABOLIC PANEL (CALCIUM TOTAL) (10/26/2021 2:31 AM ORNAMENTAL IRON WORKER) Only the most recent of6 resultswithin the time period is included. BUN 14 7 - 26 mg/dL 10/26/2021 3:29 AM [facility] Creatinine 0.95 0.56 - 0.96 mg/dL 10/26/2021 3:29 AM [facility] Sodium 134(L) 136 - 145 mmol/L 10/26/2021 3:29 AM [facility] Potassium 4.2 3.5 - 4.5 mmol/L 10/26/2021 3:29 AM [facility] Chloride 102 98 - 107 mmol/L 10/26/2021 3:29 AM [facility] CO2 25 22 - 29 mmol/L 10/26/2021 3:29 AM [facility] Glucose 106 70 - 115 mg/dL 10/26/2021 3:29 AM [facility] Calcium 8.9 8.4 - 10.2 mg/dL 10/26/2021 3:29 AM [facility] Anion Gap 11 8 - 18 10/26/2021 3:29 AM [facility] BUN/Creatinine Ratio 15 7 - 23 10/26/2021 3:29 AM [facility] Osmolality Calculated 279 270 - 300 mOsm/kg 10/26/2021 3:29 AM [facility] eGFR by CKD-EPI 63(L) >=90 mL/min/1.7 3 m2 10/26/2021 3:29 AM [facility] Blood BLOOD SPECIMEN / Unknown Lab Venipuncture / Unknown 10/26/2021 2:31 AM ORNAMENTAL IRON WORKER 10/26/2021 3:01 AM ORNAMENTAL IRON WORKER Jovon Maloney DO LAB - CHEMISTRY [place] [facility] [address] [place] [address], [facility] [phone] * XR KNEE LEFT 2VW OR LESS (10/25/2021 12:05 PM ORNAMENTAL IRON WORKER) Only the most recent of2 resultswithin the time period is included. Anatomical Region Laterality Modality Lower Extremity Radiographic Courtney ging 10/25/2021 12:5 9 PM ORNAMENTAL IRON WORKER Impressions 10/25/2021 1:00 PM ORNAMENTAL IRON WORKER IMPRESSION: Internally fixated tibial plateau fracture. This report was electronically signed by TRAMAINE CERON MD on 10/25/2021 1:00 PM . Narrative 10/25/2021 1:00 PM ORNAMENTAL IRON WORKER Exam: XR KNEE LEFT 2VW History: S82.142A: [...] * [place] JAQUELIN SURGERY (10/25/2021 11:36 AM ORNAMENTAL IRON WORKER) Only the most recent of2 resultswithin the time period is included. Narrative [facility] - 10/25/2021 11:37 AM ORNAMENTAL IRON WORKER Fluoroscopy was used for this exam in the OR. Please see the Operative report. Jovon Maloney DO FLUOROSCOPY ORDERABL ES [facility] * ETT LINE PERFORMABLE (10/25/2021 8:26 AM ORNAMENTAL IRON WORKER) Narrative Veto Guzman DO - 10/25/2021 8:26 AM ORNAMENTAL IRON WORKER Veto Guzman DO 10/25/2021 8:28 AM Endotracheal Tube Placement: Patient Location: OR. Procedure: intubation (63603). Procedure Section: Sedation: under general anesthesia. Indications [...] TYPE + SCREEN PANEL (10/25/2021 6:42 AM ORNAMENTAL IRON WORKER) Only the most recent of2 resultswithin the time period is included. [facility] Antibody Screen NEG 7:30 AM ORNAMENTAL IRON WORKER [facility] ABO Rh O POS 10/25/2021 7:30 AM ORNAMENTAL IRON WORKER [facility] Blood Bank BLOOD SPECIMEN / Unknown Venipuncture / Unknown 10/25/2021 6:42 AM ORNAMENTAL IRON WORKER 10/25/2021 6:51 AM ORNAMENTAL IRON WORKER Jovon Maloney DO LAB - BLOOD BANK ORD ERABLES [facility] [address] [place] [address], [facility] [phone] * SARS-COV-2 (COVID-19) INTERNAL (10/12/2021 3:49 PM ORNAMENTAL IRON WORKER) [facility] COVID-19 PCR Not detected Not detected 10/13/2021 6:11 AM ORNAMENTAL IRON WORKER [facility] Microbiology SPECIMEN FROM NASOPHARYNGEAL STRUCTURE / Unknown Collection / Unknown 10/12/2021 3:49 PM ORNAMENTAL IRON WORKER 10/12/2021 4:54 PM ORNAMENTAL IRON WORKER Narrative [facility] - 10/13/2021 6:11 AM ORNAMENTAL IRON WORKER This nucleic acid amplification assay performance was validated by [facility]. This test has been [...] Maloney DO LAB - MICROBIOLOGY O RDERABLES [facility] MICROBIOLOGY [address] [place] [address], [facility] [phone] * ETT LINE PERFORMABLE (10/11/2021 11:52 AM ORNAMENTAL IRON WORKER) Narrative Sloan Salcedo Anes Asst - 10/11/2021 11:52 AM ORNAMENTAL IRON WORKER Sloan Salcedo Anes Asst 10/11/2021 11:53 AM Endotracheal Tube Placement: Patient Location: OR. Intubation Event Date/Time: 10/11/2021 10:59 AM Procedure: intubation ([id number]). Procedure Section: Sedation: under general anesthesia. Indications [...] KNEE LEFT WO CONTRAST (10/10/2021 9:26 PM ORNAMENTAL IRON WORKER) Anatomical Region Laterality Modality Lower Extremity Computed Tomogra phy 10/10/2021 9:33 PM ORNAMENTAL IRON WORKER Impressions 10/11/2021 9:05 AM ORNAMENTAL IRON WORKER Impression: 1.Comminuted moderately displaced tibial plateau fracture involving the medial and lateral plateau articular surfaces. 2.Comminuted mildly displaced fibular head fracture. Report drafted by Oni Rowe (resident) IDr. TRAMAINE MD have personally reviewed and interpreted this examination/study. This report was electronically signed by TRAMAINE CERON MD on 10/11/2021 9:05 AM . Narrative 10/11/2021 9:05 AM ORNAMENTAL IRON WORKER Procedure Information DATE: 10/10/2021 9:28 PM EXAMINATION: [...] (COVID-19)+INFLU A+B PCR RAPID (10/10/2021 8:35 PM ORNAMENTAL IRON WORKER) COVID-19 PCR Not detected Not detected 10/10/20 9:01 PM [facility] Influenza A Rapid GABRIELA Not Detected Not Detected 10/10/2021 9:01 PM [facility] Influenza B GABRIELA Rapid Not Detected Not Detected 10/10/2021 9:01 PM [facility] Microbiology SPECIMEN FROM NASOPHARYNGEAL STRUCTURE / Unknown Collection / Unknown 10/10/2021 8:35 PM ORNAMENTAL IRON WORKER 10/10/2021 8:39 PM ORNAMENTAL IRON WORKER [facility] - 10/10/2021 9:01 PM ORNAMENTAL IRON WORKER Influenza assay performed by [employer]. [...] assay performance was validated by [facility]. This test has been authorized by [...] Maloney DO LAB - MICROBIOLOGY O RDERABLES [address] [address], [facility] [phone] * XR STRESS ANY JOINT (10/10/2021 8:31 PM ORNAMENTAL IRON WORKER) Anatomical Region Laterality Modality Lower Extremity, Upper Extremity Radiographic Imaging 10/11/2021 10:1 6 AM ORNAMENTAL IRON WORKER Impressions 10/11/2021 10:19 AM ORNAMENTAL IRON WORKER IMPRESSION: No change in alignment of the osseous structures of the ankle status post stress. Report dictated by Ramon Burns DO (resident services supervisor) IDr. KIMI MD, FRCR have personally reviewed and interpreted this examination/study. This report was electronically signed by KIMI TELLO MD, FRCR on 10/11/2021 10:19 AM . Narrative 10/11/2021 10:19 AM ORNAMENTAL IRON WORKER EXAMINATION: XR STRESS ANY JOINT HISTORY: W11.XXXA: [...] dictated by Ramon Burns DO (resident services supervisor) Dr. KIMI Mosley MD, FRCR have personally reviewedand interpreted this examination/study. This report was electronically signed by KIMI TELLO MD, FRROSALBA on 10/11/2021 10:19 AM . Lilliam Aguirre MD DIAGNOSTIC IMAGING O RDERABLES * XR FEMUR LEFT 2VW (10/10/2021 8:31 PM ORNAMENTAL IRON WORKER) Anatomical Region Laterality Modality Lower Extremity Radiographic Courtney ging 10/11/2021 10:1 0 AM ORNAMENTAL IRON WORKER Impressions 10/11/2021 10:26 AM ORNAMENTAL IRON WORKER IMPRESSION: 1.No acute osseous abnormality of the femur. 2.Redemonstrated lateral tibial condyle are fracture and proximal fibular fracture with large joint effusion. Report dictated by Ramon Burns DO (resident services supervisor). Dr. KIMI Mosley MD, FRCR have personally reviewed and interpreted this examination/study. This report was electronically signed by KIMI TELLO MD, FRROSALBA on 10/11/2021 10:26 AM . Narrative 10/11/2021 10:26 AM ORNAMENTAL IRON WORKER EXAMINATION: XR FEMUR LEFT 2VW HISTORY: W11.XXXA: [...] dictated by Ramon Burns DO (resident services supervisor). Dr. KIMI Mosley MD, FRCR have personally reviewedand interpreted this examination/study. This report was electronically signed by KIMI TELLO MD, FRCR on 10/11/2021 10:26 AM . Lilliam Aguirre MD DIAGNOSTIC IMAGING O RDERABLES * XR PELVIS 1 OR 2VW (10/10/2021 7:59 PM ORNAMENTAL IRON WORKER) Anatomical Region Laterality Modality Pelvis Radiographic Courtney ging 10/11/2021 10:0 4 AM ORNAMENTAL IRON WORKER Impressions 10/11/2021 10:52 AM ORNAMENTAL IRON WORKER IMPRESSION: No acute fracture identified. Report dictated by Ramon Burns DO (resident services supervisor). Dr. KIMI Mosley MD, FRCR have personally reviewed and interpreted this examination/study. This report was electronically signed by KMII TELLO MD, FRROSALBA on 10/11/2021 10:52 AM . Narrative 10/11/2021 10:52 AM ORNAMENTAL IRON WORKER EXAMINATION: XR PELVIS 1 OR 2VW HISTORY: [...] dictated by Ramon Burns DO (resident services supervisor). I, Dr. KIMI TELLO MD, FRCR have personally reviewedand interpreted this examination/study. This report was electronically signed by KIMI TELLO MD, FRCR on 10/11/2021 10:52 AM . Lilliam Aguirre MD DIAGNOSTIC IMAGING O RDERABLES * BLOOD TYPE VERIFICATION (10/10/2021 7:08 PM ORNAMENTAL IRON WORKER) ABO Rh O POS 10/10/2021 8:0 2 PM ORNAMENTAL IRON WORKER [facility] Blood Bank BLOOD SPECIMEN / Unknown Lab Venipuncture / Unknown 10/10/2021 7:08 PM ORNAMENTAL IRON WORKER 10/10/2021 7:11 PM ORNAMENTAL IRON WORKER Lilliam Aguirre MD LAB - BLOOD BANK ORD ERABLES [facility] [address] [place] [address], [facility] [phone] * XR HIP 2+ VW LEFT (10/10/2021 6:55 PM ORNAMENTAL IRON WORKER) Anatomical Region Laterality Modality Pelvis, Lower Extremity Radiogra phic Imaging 10/10/2021 7:17 PM ORNAMENTAL IRON WORKER Impressions 10/11/2021 8:48 AM ORNAMENTAL IRON WORKER IMPRESSION: 1.Fracture of the tibial condyles with involvement of the lateral tibial plateau and in the condylar eminence. There is depression of the lateral tibial plateau (approximately 9 mm). 2.Widening of lateral aspect of ankle joint is noted without definite fractures. Dictated by Andre Aguilar DO (resident services supervisor). I, Dr. KIMI TELLO MD, [facility] have personally reviewed and interpreted this examination/study. This report was electronically signed by KIMI TELLO MD, FRCR on 10/11/2021 8:48 AM . Narrative 10/11/2021 8:48 AM ORNAMENTAL IRON WORKER EXAMINATION: XR ANKLE LEFT 3VW OR MORE, [...] MORE, XR KNEE LEFT 3VW, XR HIP [id number] OR MORE, XR TIBIA FIBULA LEFT 2VW [...] Dictated by Andre Aguilar DO (resident services supervisor). Dr. KIMI Mosley MD, [facility] have personally reviewedand interpreted this examination/study. This report was electronically signed by KIMI TELLO MD, FR on 10/11/2021 8:48 AM . Lilliam Aguirre MD DIAGNOSTIC IMAGING O RDERABLES * XR ANKLE 3+ VW LEFT (10/10/2021 6:55 PM ORNAMENTAL IRON WORKER) Anatomical Region Laterality Modality Lower Extremity Radiographic Courtney ging 10/10/2021 7:17 PM ORNAMENTAL IRON WORKER Impressions 10/11/2021 8:48 AM ORNAMENTAL IRON WORKER IMPRESSION: 1.Fracture of the tibial condyles with involvement of the lateral tibial plateau and in the condylar eminence. There is depression of the lateral tibial plateau (approximately 9 mm). 2.Widening of lateral aspect of ankle joint is noted without definite fractures. Dictated by Andre Aguilar DO (resident services supervisor). Dr. KIMI MosleyVIL, MD, FRROSALBA have personally reviewed and interpreted this examination/study. This report was electronically signed by KIMI TELLO MD, FRROSALBA on 10/11/2021 8:48 AM . Narrative 10/11/2021 8:48 AM ORNAMENTAL IRON WORKER EXAMINATION: XR ANKLE LEFT 3VW OR MORE, [...] MORE, XR KNEE LEFT 3VW, XR HIP [id number] OR MORE, XR TIBIA FIBULA LEFT 2VW [...] Dictated by Andre Aguilar DO (resident services supervisor). Dr. KIMI Mosley MD, FRROS[facility] have personally reviewedand interpreted this examination/study. This report was electronically signed by KIMI TELLO MD, FRCR on 10/11/2021 8:48 AM . Lilliam Aguirre MD DIAGNOSTIC IMAGING O RDERABLES * XR TIBIA FIBULA LEFT 2VW (10/10/2021 6:54 PM ORNAMENTAL IRON WORKER) Anatomical Region Laterality Modality Lower Extremity Radiographic Courtney ging 10/10/2021 7:17 PM ORNAMENTAL IRON WORKER Impressions 10/11/2021 8:48 AM ORNAMENTAL IRON WORKER IMPRESSION: 1.Fracture of the tibial condyles with involvement of the lateral tibial plateau and in the condylar eminence. There is depression of the lateral tibial plateau (approximately 9 mm). 2.Widening of lateral aspect of ankle joint is noted without definite fractures. Dictated by Andre Aguilar DO (resident services supervisor). Dr. KIMI Mosley MD, FRROSALBA have personally reviewed and interpreted this examination/study. This report was electronically signed by KIMI TELLO MD, FRCR on 10/11/2021 8:48 AM . Narrative 10/11/2021 8:48 AM ORNAMENTAL IRON WORKER EXAMINATION: XR ANKLE LEFT 3VW OR MORE, [...] MORE, XR KNEE LEFT 3VW, XR HIP [id number] OR MORE, XR TIBIA FIBULA LEFT 2VW [...] Dictated by Andre Aguilar DO (resident services supervisor). I, Dr. KIMI TELLO MD, [facility] have personally reviewedand interpreted this examination/study. This report was electronically signed by KIMI TELLO MD, FRCR on 10/11/2021 8:48 AM . Lliliam Aguirre MD DIAGNOSTIC IMAGING O RDERABLES * PT-INR [facility] (10/10/2021 6:49 PM ORNAMENTAL IRON WORKER) PT 12.1 12.1 - 14.8 Seconds 10/10/2021 7:38 PM [facility] INR 0.9 See Comment 10/10/2021 7:38 PM [facility] Comment:The suggested therap eutic range for standard coumadin (warfarin) therapy is an INR of 2.0-3.0. For high-risk patients (Mechanical Mitral Valve Prosthesis, etc.), the suggested prophylactic therapeutic range is an INR of 2.5-3.5. Blood BLOOD SPECIMEN / Unknown Venipuncture / Unknown 10/10/2021 6:49 PM ORNAMENTAL IRON WORKER 10/10/2021 7:28 PM ORNAMENTAL IRON WORKER Lilliam Aguirre MD LAB - COAGULATION OR DERABLES [facility] [address] [place] [phone], [facility] [phone] * (ABNORMAL) CBC W AUTO DIFFERENTIAL (10/10/2021 6:48 PM ORNAMENTAL IRON WORKER) WBC 9.8 3.5 - 10.5 10 3/uL 10/10/2021 7:11 PM ORNAMENTAL IRON WORKER [facility] RBC 4.02 3.80 - 5.20 10 6/uL 10/10/2021 7:11 PM [facility] Hemoglobin 11.9(L) 12.0 - 15.6 g/dL 10/10/2021 7:11 PM [facility] Hematocrit 37.4 35.0 - 45.0 % 10/10/2021 7:11 PM [facility] MCV 93.0 80.7 - 98.3 fL 10/10/2021 7:11 PM [facility] MCH 29.6 26.7 - 34.0 pg 10/10/2021 7:11 PM [facility] MCHC 31.8 30.8 - 35.9 g/dL 10/10/2021 7:11 PM [facility] Platelet Count 294 150 - 400 10 3/uL 10/10/2021 7:11 PM [facility] RDW-SD 46.0 36.0 - 50.0 fL 10/10/2021 7:11 PM [facility] RDW-CV 13.4 11.2 - 14.8 % 10/10/2021 7:11 PM [facility] MPV 9.9 9.4 - 12.9 fL 10/10/2021 7:11 PM [facility] nRBC Absolute 0.00 0 10 3/uL 10/10/2021 7:11 PM [facility] nRBC Auto 0.0 0 /100 WBC 10/10/2021 7:11 PM [facility] Neutrophils % 66.2 35.0 - 70.0 % 10/10/2021 7:11 PM [facility] Lymphocytes % 21.3 20.0 - 43.0 % 10/10/2021 7:11 PM [facility] Monocytes % 10.2 5.0 - 13.0 % 10/10/2021 7:11 PM [facility] Eosinophils % 1.7 0.0 - 6.0 % 10/10/2021 7:11 PM [facility] Basophil % 0.3 0.0 - 2.0 % 10/10/2021 7:11 PM [facility] Neutrophils Absolute 6.5 1.6 - 7.0 10 3/uL 10/10/2021 7:11 PM [facility] Lymphocyte Absolute 2.1 1.1 - 3.9 10 3/uL 10/10/2021 7:11 PM [facility] Monocytes Absolute 1.00 0.26 - 1.07 10 3/uL 10/10/2021 7:11 PM [facility] Eosinophils Absolute 0.17 0.00 - 0.47 10 3/uL 10/10/2021 7:11 PM [facility] Basophils Absolute 0.03 0.00 - 0.08 10 3/uL 10/10/2021 7:11 PM [facility] Immature Granulocytes % 0.3 0.0 - 1.0 % 10/10/2021 7:11 PM [facility] Immature Granulocytes Absolute 0.03 10/10/2021 7:11 PM [facility] Blood BLOOD SPECIMEN / Unknown Venipuncture / Unknown 10/10/2021 6:48 PM ORNAMENTAL IRON WORKER 10/10/2021 7:01 PM ORNAMENTAL IRON WORKER Lilliam Aguirre MD LAB - HEMATOLOGY ORD ERABLES Performing Organization Address [facility] Co de Phone Number [address] [address] [phone] * (ABNORMAL) COMPREHENSIVE METABOLIC PANEL (10/10/2021 6:48 PM ORNAMENTAL IRON WORKER) BUN 19 7 - 26 mg/dL 10/10/2021 7:25 PM [facility] Creatinine 1.18(H) 0.56 - 0.96 mg/dL 10/10/2021 7:25 PM [facility] Sodium 142 136 - 145 mmol/L 10/10/2021 7:25 PM [facility] Potassium 3.7 3.5 - 4.5 mmol/L 10/10/2021 7:25 PM [facility] Chloride 106 98 - 107 mmol/L 10/10/2021 7:25 PM [facility] CO2 22 22 - 29 mmol/L 10/10/2021 7:25 PM [facility] Glucose 99 70 - 115 mg/dL 10/10/2021 7:25 PM [facility] Calcium 9.9 8.4 - 10.2 mg/dL 10/10/2021 7:25 PM [facility] Protein Total 6.8 6.0 - 8.3 g/dL 10/10/2021 7:25 PM [facility] Albumin 3.6 3.4 - 5.0 g/dL 10/10/2021 7:25 PM [facility] Bilirubin Total 0.2 0.2 - 1.2 mg/dL 10/10/2021 7:25 PM [facility] Alkaline Phosphatase 93 40 - 150 U/L 10/10/2021 7:25 PM [facility] ALT 24 5 - 55 U/L 10/10/2021 7:25 PM [facility] AST 30 5 - 34 U/L 10/10/2021 7:25 PM [facility] Anion Gap 18 8 - 18 10/10/2021 7:25 PM [facility] BUN/Creatinine Ratio 16 7 - 23 10/10/2021 7:25 PM [facility] Osmolality Calculated 296 270 - 300 mOsm/kg 10/10/2021 7:25 PM [facility] Albumin/Globulin Ratio 1.1 1.1 - 2.3 10/10/2021 7:25 PM [facility] eGFR by CKD-EPI 48(L) >=90 mL/min/1.7 3 m2 10/10/2021 7:25 PM [facility] Blood BLOOD SPECIMEN / Unknown Venipuncture / Unknown 10/10/2021 6:48 PM ORNAMENTAL IRON WORKER 10/10/2021 7:01 PM ORNAMENTAL IRON WORKER Lilliam Aguirre MD LAB - CHEMISTRY JOCELYNN GARCIA [facility] Organization Address City/State/[facility] Co de Phone Number [address] [address], [facility] [phone] * CULTURE MRSA (09/25/2014 9:07 AM ORNAMENTAL IRON WORKER) Culture MRSA Screen No Growth of Methicillin Resistant Staphylococcus aureus. [facility] Nasopharyngeal 09/25/2014 9: 07 AM ORNAMENTAL IRON WORKER 09/25/2014 3:16 PM ORNAMENTAL IRON WORKER Narrative [facility] - 09/26/2014 11:18 AM ORNAMENTAL IRON WORKER AshokSpecimen#[id number] Ashok Loc/Rm/Bed: OP SGPREOP// Historical Provider LAB - MICROBIOLOG Y ORDERABLES [facility] [address] [phone] Care Teams Glove Cutter Relationship Specialty Start Date End Date Edy Aviles DO [address] [place] [address] PCP - General 06/17/22
--- OUTSIDE RECORDS SUMMARY | 2025-01-02 02:52 | XMS_ITS | Encounter Summary ---
Author Organization [facility] Health Address [address] [facility] [place] [address] Care Team Providers Care Systems Program Manager Name Role Phone Edy Aviles DO Primary Care Provider [phone] Encounter Details Date Type Department Care Team (Late st Contact Info) Description 02/24/2024 Lab Requisition [facility] - DermPath Lab [address] [facility], [facility] [place] [id number] Israel Lang [place] [address] Social History Tobacco Use Types Packs/Day Years [...] AM CDT) Case Report Dermatopathology Report Case: [id number] Authorizing Provider: Israel Lang MD Collected: 02/23/2024 12:00 AM Ordering Location: [facility] - Received: 02/25/2024 06:55 AM [...] five pieces in aggregate shave biopsy measuring [id number] mm. Jar 0. 1:41 PM T DERMATOPATHOLOGY [...] characteristic determined by the Dermatopathology Laboratory at [facility], directed by Dr. Yessi Jackman. These tests need not be, and therefore are not, approved by the [place] Food and Drug Administration. The tests are used for clinical purposes. Billing Codes Specimen Charges Stain Charges 33751 [id number] 1 1 1 1:41 PM CDT DERMATOPATHOLOGY [...] LAB - PATHOLOGY/CYTO LOGY ORDERABLES DERMATOPATHOLOGY LABORATORY [facility] - Department of Dermatology [facility] Specialized Medicine [address] [place] [address], [address] [phone] documented in this encounter Visit Diagnoses Not on filedocumented in this encounter Care Teams Systems Program Manager Relationship Specialty Start Date End Date Edy Aviles DO [address] [place], [place] [id number] PCP - General 06/17/22 documented as of this encounter
--- OUTSIDE RECORDS SUMMARY | 2025-01-02 02:52 | XMS_ITS | Referral Summary ---
Author Organization [facility] Address [address] [facility] [place] [address] Care Team Providers Care Sawmill Worker Name Role Phone Edy Aviles DO Primary Care Provider [phone] Source Comments [facility],non-owned Affiliates and Associated Physician Practices is amultiple site organization consisting of ambulatory clinics and hospital sitesin [place] and [place]. This disclosure is being madepursuant to the Care Everywhere program and may not contain all information available regarding this patient. Last updated 18.[facility] Allergies Active Allergy Reactions Criticality Noted Date [...] Immunizations Name Administration Dates Next Due [employer] primary monoval ent 12+ yr 0.3mL Purple [...] Comments Blood Pressure 148/57 10/26/2021 7:27 AM INDIVIDUAL PENSION CONSULTANT Pulse 95 10/26/2021 7:27 AM INDIVIDUAL PENSION CONSULTANT Temperature 36.8 C (98.3 F) 10/26/2021 7:27 AM INDIVIDUAL PENSION CONSULTANT Respiratory Rate 16 10/25/2021 10:58 PM INDIVIDUAL PENSION CONSULTANT Oxygen Saturation 100% 10/26/2021 7:27 AM INDIVIDUAL PENSION CONSULTANT Inhaled Oxygen Concentration 40% 10/25/2021 1 2:10 PM INDIVIDUAL PENSION CONSULTANT Weight 85.7 kg (189 lb) 07/08/2022 9:04 [...] 3-4 weeks. Medical Devices Implanted Type Area Pay Clerk Device Identifier Shelf Expiration Date Model / Serial / Lot Pin Hlf 255mm 5mm Jtx Lng Ss 35mm Extfix Implanted:Qty: 2 on 10/11/2021 by Jovon Maloney, DO at [facility] Left: [employer] [id number] / / Pin Hlf 40mm 5mm Jtx Lng Ti Ntrd Extfix Implanted:Qty: 2 on 10/11/2021 by Jovon Maloney, DO at [facility] Left: [employer] [id number] / / Bar Extfix 200mm Jtx Cfbr Nonster Disp Implanted:Qty: 2 on 10/11/2021 by Jovon Maloney, DO at [facility] Left: [employer] [id number] / / Screw 3.5mm 46mm Ft Hex Drv Nlckg Fly Implanted:Qty: 1 on 10/25/2021 by Jovon Maloney, DO at [facility] Left: [employer] 8150-37-046 / / Screw 3.5mm 50mm Ft Nonlock Hex Drv Elb Implanted:Qty: 2 on 10/25/2021 by Jovon Maloney, DO at [facility] Left: [employer] [id number] / / Screw 3.5mm 55mm Ft Slf-Tap Hex Lopro Implanted:Qty: 1 on 10/25/2021 by Jovon Maloney, DO at [facility] Left: [employer] [id number] / / Screw 3.5mm 65mm T15 Lck Slf-Tap Tip Tpr Implanted:Qty: 3 on 10/25/2021 by Jovon Maloney, DO at [facility] Left: [employer] 8161-35-065 / / Screw 3.5mm 70mm T15 Lck Slf-Tap Tip Tpr Implanted:Qty: 2 on 10/25/2021 by Jovon Maloney, DO at [facility] Left: [employer] [id number] / / Plate 5 Hl Lck Lopro Dist Blt Tip Tib Lt Implanted:Qty: 1 on 10/25/2021 by Jovon Maloney, DO at [facility] Left: [employer] [id number] / / Screw 3.5mm 65mm 2.2mm Mldir Lck Sq Drv Implanted:Qty: 1 on 10/25/2021 by Jovon Maloney, DO at [facility] Left: [employer] [id number] / / Screw 3.5mm 80mm Sq Drv Nonlock Lopro Implanted:Qty: 1 on 10/25/2021 by Jovon Maloney, DO at [facility] Left: [employer] [id number] / / Screw 3.5mm 75mm T15 Lck Slf-Tap Tip Tpr Implanted:Qty: 1 on 10/25/2021 by RevJovon roa DO at [facility] Left: [employer] [id number] / / Plate 5 Hl Lopro Lck Cha Marquez Dist 61 Implanted:Qty: 1 on 10/25/2021 by Jovon Maloney DO at [facility] Left: [employer] [id number] / / Screw 3.5mm 34mm Ft Nonlock Hex Drv Elb Implanted:Qty: 1 on 10/25/2021 by Jovon Maloney DO at [facility] Left: [employer] [id number] / / Screw 3.5mm 38mm Ft Slf-Tap Hex Lopro Implanted:Qty: 1 on 10/25/2021 by Jovon Maloney DO at [facility] Left: [employer] [id number] / / Screw 3.5mm 40mm Ft Slf-Tap Hex Lopro Implanted:Qty: 1 on 10/25/2021 by Jovon Maloney DO at [facility] Left: [employer] [id number] / / Explanted Type Area Pay Clerk Device Identifier Shelf Expiration Date Model / Serial / Lot Clamp Extfix Jtx 10.5mm Bar To Bar Mr Sf Explanted:Qty: 2 on 10/11/2021 at [facility] Left: [employer] [id number] / / Screw 3.5mm 55mm Ft Slf-Tap Hex Lopro Explanted:Qty: 1 on 10/25/2021 by Jovon Maloney DO at [facility] Left: [employer] [id number] / / Wire K 1.6mm 6in Hlf Bynt Pnt Ss Fx Explanted:Qty: 4 on 10/25/2021 by Jovon Maloney DO at [facility] Left: [employer] [id number] / / Screw 3.5mm 36mm Ft Slf-Tap Hex Lopro Explanted:Qty: 1 on 10/25/2021 by Jovon Maloney DO at [facility] Left: [employer] [id number] / / Procedures Procedure Name Priority Date/Time Associated Diagnosis Comments BASIC METABOLIC PANEL (CALCIUM TOTAL) Routine 10/26/2021 2:31 AM INDIVIDUAL PENSION CONSULTANT Closed fracture of left tibial plateau, initial encounter from Last 3 Months or Most Recently Relevant to Health Maintenance Results * (ABNORMAL) BASIC METABOLIC PANEL (CALCIUM TOTAL) (10/26/2021 2:31 AM INDIVIDUAL PENSION CONSULTANT) BUN 14 7 - 26 mg/dL 10/26/2021 3:29 AM [facility] Creatinine 0.95 0.56 - 0.96 mg/dL 10/26/2021 3:29 AM [facility] Sodium 134(L) 136 - 145 mmol/L 10/26/2021 3:29 AM [facility] Potassium 4.2 3.5 - 4.5 mmol/L 10/26/2021 3:29 AM [facility] Chloride 102 98 - 107 [...] Lab Venipuncture / Unknown 10/26/2021 2:31 AM INDIVIDUAL PENSION CONSULTANT 10/26/2021 3:01 AM [facility] Jovon Maloney DO LAB - CHEMISTRY JOCELYNN GARCIA [facility] [address] [place] [address], [facility] [phone] from Last 3 Months or Most Recently Relevant to Health Maintenance Advance Directives * Full Code (Latest Code Status on File) Date Activated Date Inactivated Comments 10/25/2021 1:30 PM 10/26/2021 1:32 PM * Full Code Date Activated Date Inactivated Comments 10/11/2021 12:36 PM 10/15/2021 3:44 PM Care Teams Sawmill Worker Relationship Specialty Start Date End Date Edy Aviles DO [address] [place] [address] PCP - General 06/17/22
--- OUTSIDE RECORDS SUMMARY | 2025-01-02 02:53 | XMS_ITS | Clinical Summary ---
Author Organization [facility] [place] [address] Address [address] [place] [address] Care Team Providers Care Client Delivery Manager Name Role Phone Per Samson MD Primary Care Provider [phone] Coretta Childers MD Unavailable [phone] Tima Henson MD Unavailable [phone] Allergies Active Allergy Reactions Criticality Noted Date [...] mouth 2 (two) times a day Active httwwckp-soc-CR-ly copen-lutein 0.4-300-250 mg-mcg-mcg tabletIndications: Vitamin Deficiency Prevention [...] 08/28/2023 Assessment & Plan (09/21/2023 9:12 AM CUFFER): She is doing pretty well. Feels like [...] and proceed with this. Sinus node dysfunction ([facility]) 06/08/2023 Morbid (severe) obesity due to excess calories 0 06/01/2023 Body mass index 40.0-44.9, adult ([facility]) 06/01 Sleep-disordered breathing 09/07/2022 Status post placement of implantable loop record er 03/07/2022 Overview (03/07/2022): DataParenting Bio-monitor III Loop Recorder. Dx; Syncope, PSVT, AT, RVOT VT s/p ablation. DOI 03/05/2022-[facility]. [employer] remote monitoring. Dizziness 08/19/2021 Lower extremity edema [...] (10/26/2020): Added automatically from request for surgery [id number] Migraine 08/10/2020 Assessment & Plan (08/10/2020 2:22 [...] neuralgia. 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 Assessment & Plan (10/02/2020 1:29 PM CUFFER): Ms. Palma continues to do well clinically after posterior lumbar decompression fusion at L4-5. She has good alignment. There is no lucency around the hardware. We will continue to follow this over time. Assessment & Plan (11/30/2019 1:51 PM CUFFER): Ms. Palma reports persistent numbness in her [...] (05/20/2019): Added automatically from request for surgery [id number] Assessment & Plan (01/22/2023 12:27 PM CDT): [...] physician. Assessment & Plan (01/08/2021 12:53 PM CUFFER): Ms. Palma does not have pain referable [...] time. Assessment & Plan (10/02/2020 1:29 PM CUFFER): Ms. Palma was improved after cervical decompression [...] hour to stretch. FOLLOW UP APPT: With SECURITY POLICE OFFICER in 4 weeks with AP/LAT Cervical spine films. Assessment & Plan (11/24/2018 11:40 AM CUFFER): Patient has new onset symptoms of her [...] patient to schedule on her own at [facility]. We will await the CD to be mailed to our office for Dr. Palmer to review and provide further recommendations. She is to continue the same activity restrictions as outlined prior to surgery. Neuropathic pain 11/24/2018 Assessment & Plan (11/24/2018 11:42 AM CUFFER): For her neuropathic pain and would have [...] (12/16/2018): Added automatically from request for surgery [id number] Cervical spinal stenosis 09/27/2018 Overview (09/27/2018): Added automatically from request for surgery [id number] HNP (herniated nucleus pulposus), lumbar 07/13/2018 03/02/2019 Overview (07/13/2018): Added automatically from request for surgery [id number] Encounters Date Type Department Care Team Description 12/26/2024 7:45 AM CUFFER Ancillary Procedure [facility] Cardiology [address] [place] [address] [place] [phone] Syncope and collapse (Primary Dx); NICM (nonischemic cardiomyopathy) (CMS/HCC) (HCC); NSVT (nonsustained ventricular tachycardia) (HCC); RVOT ventricular tachycardia (HCC); Paroxysmal supraventricular tachycardia (HCC); Status post placement of implantable loop recorder 11/25/2024 Telephone [facility] Cardiology [address] [place] [phone] Jessica Shoemaker NP 11/18/2024 Orders Only [facility] Cardiology [address] [place] [address] [place] [phone] Vy Pierce MD Status post placement of implantable loop recorder (Primary Dx); Paroxysmal supraventricular tachycardia (HCC); History of radiofrequency ablation (RFA) procedure for cardiac arrhythmia; Syncope and collapse; RVOT ventricular tachycardia (HCC) 11/14/2024 9:15 AM CUFFER Ancillary Procedure [facility] Cardiology [address] [place] [address] [place] [phone] Status post placement of implantable loop recorder (Primary Dx); NICM (nonischemic cardiomyopathy) (CMS/HCC) (HCC); NSVT (nonsustained ventricular tachycardia) (HCC) 10/28/2024 Telephone [facility] Cardiology [address] [place] [phone] Jessica Shoemaker NP 10/27/2024 1:00 PM CUFFER Ancillary Procedure [facility] Cardiology [address] [place] [address] [place] [phone] Syncope and collapse (Primary Dx); NICM (nonischemic cardiomyopathy) (CMS/HCC) (HCC); NSVT (nonsustained ventricular tachycardia) (HCC); Status post placement of implantable loop recorder; RVOT ventricular tachycardia (HCC); Paroxysmal supraventricular tachycardia (HCC) 10/27/2024 Orders Only [facility] Cardiology [address] [place] [address] [place] [phone] Jessica Shoemaker NP Dizziness of unknown etiology 10/26/[address] [phone] Vy Pierce MD 10/19/2024 Orders Only [facility] Health Information Management [address] [place] [phone] Jessica Shoemaker NP 10/10/2024 Telephone [place] [address] [place] [phone] Jessica Shoemaker NP Dizziness from Last [...] on file Legal Sex Female 11:06 AM CUFFER Gender Identity Not on file Sexual Orientation Not on file Obstetrics History Last Filed Vital Signs Vital Sign Reading Time Taken Comments Blood Pressure 112/64 09/26/2024 8:40 AM CUFFER Pulse 105 09/26/2024 8:40 AM CUFFER Temperature 36.4 C (97.5 F) 09/07/2023 10:05 AM CDT Respiratory Rate 18 09/15/2023 9:25 AM CUFFER Oxygen Saturation 97% 09/26/2024 8:40 AM CUFFER Inhaled Oxygen Concentration - - Weight 77.1 kg (170 lb) 09/26/2024 8:40 AM CUFFER Height 154.9 cm (5' 1 ) 09/26/2024 8:40 AM CUFFER Body Mass Index 32.12 09/26/2024 8:40 AM CUFFER Plan of Treatment Health Maintenance Due Date [...] Completed 01/24/2022 Medical Devices Implanted Type Area Tool Dispatcher Device Identifier Shelf Expiration Date Model / Serial / Lot Loop Recorder Biotronik Biomonitor Iii-Left Upper Chest Chest Knee Arthroplasty Right: Knee Left Lower Leg Hardware From Fracture Left: Leg [employer] Os-201 Hemasorb Spatula Wax 2gm Bone Sterile - [id number] Implanted:Qty: 1 on 10/15/2018 by Elvin Palmer MD at [facility] N/A: Spine Cervical [employer] 10/08/2020 OS-201 / / [id number] Cage [employer] 3d Cervical [id number] 7 Deg - [id number] Implanted:Qty: 1 on 10/15/2018 by Elvin Palmer MD at [facility] N/A: Spine Cervical Core Link [id number] 12/02/2022 [id number] / / [id number] Core Link Anodyne 12mm Level 1 Spine Cervical Anterior Plate Bone - [id number] Implanted:Qty: 1 on 10/15/2018 by Elvin Palmer MD at [facility] N/A: Spine Cervical Core Link / / Core Link [id number] Anodyne 4mm 14mm Variable Angle Self Tap Spine Cervical Screw - [id number] Implanted:Qty: 4 on 10/15/2018 by Elvin Palmer MD at [facility] N/A: Spine Cervical Core Link 19993-16 / / Screw Bone Biased Angle L14 Mm Od3.5 Mm Cephelad Caudal Nonsterile Posterior Occipital Cervical Thoracic System 3500 Series - [id number] Implanted:Qty: 4 on 01/20/2019 by Elvin Palmer MD at [facility] N/A: Spine Cervical Core Link [id number] / / Screw Set Spinal 3500 Series - [id number] Implanted:Qty: 4 on 01/20/2019 by Elvin Palmer MD at [facility] N/A: Spine Cervical Core Link [id number] / / Core Link [id number] Florence 3.5mm 50mm Line Prebent Jin Spinal Nonsterile 3500 Series - [id number] Implanted:Qty: 1 on 01/20/2019 by Elvin Palmer MD at [facility] N/A: Spine Cervical Core Link [id number] / / Core Link [id number] Florence Screw Set 5500 Series - Sna - [id number] Implanted:Qty: 4 on 06/20/2019 by Elvin Palmer MD at [facility] N/A: Back Core Link 33742-54 / NA / Core Link [id number] Florence 5.5mm 35mm Line Prebent Jin Spinal Nonsterile 5500 Series - Sns - [id number] Implanted:Qty: 2 on 06/20/2019 by Elvin Palmer MD at [facility] N/A: Back Core Link [id number] / NS / [employer] [id number] Inqu Paste Mix Plus Project Management Professional 10cc Bone Graft Hyaluronic Acid Poly - Sna - [id number] Implanted:Qty: 1 on 06/20/2019 by Elvin Palmer MD at [facility] N/A: Back [employer] [id number] 01/19/2021 [id number] / NA / [id number] Core Link 85108-87 Florence 6.5mm 40mm Spine Pedicle Screw Bone 5500 Series - Sna - [id number] Implanted:Qty: 4 on 06/20/2019 by Elvin Palmer MD at [facility] N/A: Back Core Link [id number] / NA / Cer[employer] 700-025 I Factor Allograft Putty Syringe Graft 2.5cc Bone - [id number] Implanted:Qty: 1 on 11/26/2020 by Elvin Palmer MD at [facility] N/A: Spine Cervical [employer] 09/08/2023 700-025 / / [id number] C[employer] 3d Cervical [id number] 7 Deg - [id number] Implanted:Qty: 1 on 11/26/2020 by Elvin Palmer MD at [facility] N/A: Spine Cervical Core Link 10/25/2024 [id number] / / [id number] Core Link Anodyne 12mm Level 1 Spine Cervical Anterior Plate Bone - [id number] Implanted:Qty: 1 on 11/26/2020 by Elvin Palmer MD at [facility] N/A: Spine Cervical Core Link / / Core Link Anodyne 4mm 14mm Variable Angle Self Tap Spine Cervical Screw - [id number] Implanted:Qty: 4 on 11/26/2020 by Elvin Palmer MD at [facility] N/A: Spine Cervical Core Link [id number] / / Procedures Procedure Name Priority Date/Time Associated Diagnosis Comments DEVICE CHECK - REMOTE Routine 12/26/2024 9:15 AM CUFFER NICM (nonischemic cardiomyopathy) (CMS/HCC) (HCC) NSVT (nonsustained ventricular tachycardia) (HCC) DEVICE CHECK - REMOTE Routine 11/18/2024 12:03 PM CUFFER NICM (nonischemic cardiomyopathy) (CMS/HCC) (HCC) NSVT (nonsustained ventricular tachycardia) (HCC) DEVICE CHECK - REMOTE Routine 10/27/2024 6:13 PM CUFFER NICM (nonischemic cardiomyopathy) (CMS/HCC) (HCC) NSVT (nonsustained ventricular tachycardia) (HCC) SCAN - RADIOLOGY/IMAGING 10/19/2024 HEPATITIS C ANTIBODY STAT 10/15/2018 11:20 AM CUFFER from Last 3 Months or Most Recently Relevant to Health Maintenance Results * DEVICE CHECK - REMOTE (12/26/2024 9:15 AM CUFFER) Anatomical Region Laterality Modality Other Narrative 12/29/2024 1:37 PM CUFFER DataParenting Bio-monitor III Loop Recorder. Dx; Syncope, PSVT, AT, RVOT VT s/p ablation. DOI 03/05/2022-[facility]. Pay[employer]ik remote monitoring. Routine ILR remote. Normal device function. Battery function-Ok. Presenting rhythm: VS, regular (SR). Medications: Norvasc. No auto or patient recorded episodes noted. Counters since last scheduled transmission on 11/14/2024. --0 Tachy (total: 27) --0 Sudden rate drop (total: 7) --0 Pause (total: 19) --0 Symptom (total: 0) --0 AF (total: 1) Ectopy beats: 1880. See scanned report. [employer] remote f/u 02/06/2025. Shelley Looney, LARISSA Vy Pierce MD [facility] PRO CEDURES Final Result * DEVICE CHECK - REMOTE (11/18/2024 12:03 PM CUFFER) Anatomical Region Laterality Modality Other Narrative 12/08/2024 3:50 PM CUFFER Biotronik lllm implanted on March 05, 2022 [...] Continue to monitor remotely. Bandar Jordan Device Social Problems Specialist Vy Pierce MD [facility] PRO CEDURES Final Result * DEVICE CHECK - REMOTE (10/27/2024 6:13 PM CUFFER) Anatomical Region Laterality Modality Other Narrative 10/28/2024 8:21 AM CUFFER [employer] Bio-monitor III Loop Recorder. Dx; Syncope, PSVT, AT, RVOT VT s/p ablation. DOI 03/05/2022-[facility]. Biotronik remote monitoring. Unscheduled ILR remote [...] Region Laterality Modality Other us Jessica Shoemaker SECURITY POLICE OFFICER Final Res ult * Hepatitis C antibody (10/15/2018 11:20 AM CUFFER) Hep C Ab Non-Reactiv e Non-Reactiv e [facility] Blood specimen (specimen) 10/15/2018 11:20 AM CUFFER 10/15/2018 11:[address] [facility] - 10/15/2018 12:25 PM CUFFER us Notinfile Unknown LAB MICROBIOLOGY - GENERAL ORD ERABLES Final Result [facility] [address] Department [place] [address] from Last 3 Months or Most Recently Relevant to Health Maintenance Insurance MEDICARE AETNA AETNA MEDICARE AETNA SENIOR SUPPLEMENT Advance Directives For more information, please contact: [phone] * Full Code (Latest Code Status on File) Date Activated Date Inactivated Comments 09/07/2023 10:10 AM 09/07/2023 2:44 PM * Full Code Date Activated Date Inactivated Comments 06/20/2019 12:01 PM 06/20/2019 6:34 PM * Full Code Date Activated Date Inactivated Comments 10/15/2018 2:08 PM 10/15/2018 4:39 PM * Full Code Date Activated Date Inactivated Comments 07/16/2018 2:30 PM 07/16/2018 6:36 PM Care Teams Client Delivery Manager Relationship Specialty Start Date End Date Per Samson MD PCP - General Family Practice 06/01/23 Coretta Childers MD Consulting Physician Cardiology 08/28/23 Tima Henson MD [address] [place] [address] Consulting Physician Otolaryngology 08/28/23
--- OUTSIDE RECORDS SUMMARY | 2025-01-02 02:53 | XMS_ITS | Referral Summary ---
Author Organization [facility] [address] [place] [address] [address] [place] [address] Care Team Providers Care Sql Report Developer Name Role Phone Per Samson MD Primary Care Provider [phone] Coretta Childers MD Unavailable [phone] Tima Henson MD Unavailable [phone] Encounters Date Type Department Care Team Description 12/26/2024 7:45 AM LINING MARKER Ancillary Procedure [facility] Cardiology [address] [place] [address] [place] [phone] Syncope and collapse (Primary Dx); NICM (nonischemic cardiomyopathy) (CMS/HCC) (HCC); NSVT (nonsustained ventricular tachycardia) (HCC); RVOT ventricular tachycardia (HCC); Paroxysmal supraventricular tachycardia (HCC); Status post placement of implantable loop recorder 11/25/2024 Telephone [facility] Cardiology [address] [facility] [address] [place] [address] Jessica Shoemaker NP 11/18/2024 Orders Only [facility] Cardiology [address] [place] [address] [place] [phone] Vy Pierce MD Status post placement of implantable loop recorder (Primary Dx); Paroxysmal supraventricular tachycardia (HCC); History of radiofrequency ablation (RFA) procedure for cardiac arrhythmia; Syncope and collapse; RVOT ventricular tachycardia (HCC) 11/14/2024 9:15 AM LINING MARKER Ancillary Procedure [facility] Cardiology [address] [place] [address] [place] [phone] Status post placement of implantable loop recorder (Primary Dx); NICM (nonischemic cardiomyopathy) (CMS/HCC) (HCC); NSVT (nonsustained ventricular tachycardia) (HCC) 10/28/2024 Telephone [facility] Cardiology [address] [place] [phone] Jessica Shoemaker NP 10/27/2024 1:00 PM LINING MARKER Ancillary Procedure [facility] Cardiology [address] [place] [phone] Syncope and collapse (Primary Dx); NICM (nonischemic cardiomyopathy) (CMS/HCC) (HCC); NSVT (nonsustained ventricular tachycardia) (HCC); Status post placement of implantable loop recorder; RVOT ventricular tachycardia (HCC); Paroxysmal supraventricular tachycardia (HCC) 10/27/2024 Orders Only [facility] Cardiology [address] [place] [address] [place] [phone] Jessica Shoemaker NP Dizziness of unknown etiology 10/26/2024 Telephone [place] [address] [place] [phone] Vy Pierce MD 10/19/2024 Orders Only [facility] Health Information Management [address] [place] [address] Jessica Shoemaker NP 10/10/2024 Telephone [facility] Cardiology [address] [place] [address] [place] [phone] Jessica Shoemaker NP Dizziness from Last [...] mouth 2 (two) times a day Active wwzrgden-iyr-KY-ly copen-lutein 0.4-300-250 mg-mcg-mcg tabletIndications: Vitamin Deficiency Prevention [...] 08/28/2023 Assessment & Plan (09/21/2023 9:12 AM LINING MARKER): She is doing pretty well. Feels like [...] and proceed with this. Sinus node dysfunction ([facility]/HCC) 06/08/2023 Morbid (severe) obesity due to excess calories 0 06/01/2023 Body mass index 40.0-44.9, adult (CMS/HCC) 06/01 Sleep-disordered breathing 09/07/2022 Status post placement of implantable loop record er 03/07/2022 Overview (03/07/2022): K[employer] Secret Bio-monitor III Loop Recorder. Dx; Syncope, PSVT, AT, RVOT VT s/p ablation. DOI 03/05/2022-[facility]. K[employer]ik remote monitoring. Dizziness 08/19/2021 Lower extremity edema [...] (10/26/2020): Added automatically from request for surgery [id number] Migraine 08/10/2020 Assessment & Plan (08/10/2020 2:22 [...] neuralgia. Assessment & Plan (11/30/2019 1:53 PM LINING MARKER): Ms. Palma has occipital neuralgia with reproduction [...] made. They will be reviewed with Dr. iSngh who is acting supervising physician at this time as Dr. Palmer is out on extended medical leave. Explained to the patient should surgery be recommended she would need to have a BMI of 35 or less. Assessment & Plan (10/02/2020 1:29 PM LINING MARKER): Ms. Palma continues to do well clinically after posterior lumbar decompression fusion at L4-5. She has good alignment. There is no lucency around the hardware. We will continue to follow this over time. Assessment & Plan (11/30/2019 1:51 PM LINING MARKER): Ms. Palma reports persistent numbness in her [...] (05/20/2019): Added automatically from request for surgery [id number] Assessment & Plan (01/22/2023 12:27 PM CDT): [...] physician. Assessment & Plan (01/08/2021 12:53 PM LINING MARKER): Ms. Palma does not have pain referable [...] time. Assessment & Plan (10/02/2020 1:29 PM LINING MARKER): Ms. Palma was improved after cervical decompression [...] hour to stretch. FOLLOW UP APPT: With PATTERNMAKER PLASTER in 4 weeks with AP/LAT Cervical spine films. Assessment & Plan (11/24/2018 11:40 AM LINING MARKER): Patient has new onset symptoms of her [...] patient to schedule on her own at [facility]. We will await the CD to be mailed to our office for Dr. Palmer to review and provide further recommendations. She is to continue the same activity restrictions as outlined prior to surgery. Neuropathic pain 11/24/2018 Assessment & Plan (11/24/2018 11:42 AM LINING MARKER): For her neuropathic pain and would have [...] (12/16/2018): Added automatically from request for surgery [id number] Cervical spinal stenosis 09/27/2018 Overview (09/27/2018): Added automatically from request for surgery [id number] HNP (herniated nucleus pulposus), lumbar 07/13/2018 03/02/2019 Overview (07/13/2018): Added automatically from request for surgery [id number] Immunizations Immunization Administration Dates Next Due Pfizer [...] on file Legal Sex Female 11:06 AM LINING MARKER Gender Identity Not on file Sexual Orientation Not on file Last Filed Vital Signs Vital Sign Reading Time Taken Comments Blood Pressure 112/64 09/26/2024 8:40 AM LINING MARKER Pulse 105 09/26/2024 8:40 AM LINING MARKER Temperature 36.4 C (97.5 F) 09/07/2023 10:05 AM CDT Respiratory Rate 18 09/15/2023 9:25 AM LINING MARKER Oxygen Saturation 97% 09/26/2024 8:40 AM LINING MARKER Inhaled Oxygen Concentration - - Weight 77.1 kg (170 lb) 09/26/2024 8:40 AM LINING MARKER Height 154.9 cm (5' 1 ) 09/26/2024 8:40 AM LINING MARKER Body Mass Index 32.12 09/26/2024 8:40 AM LINING MARKER Plan of Treatment Not on file Medical Devices Implanted Type Area Cloth Tester Quality Device Identifier Shelf Expiration Date Model / Serial / Lot Loop Recorder KwicrroniDaily Secret Biomonitor Iii-Left Upper Chest Chest Knee Arthroplasty Right: Knee Left Lower Leg Hardware From Fracture Left: Leg Orthocon Inc Os-201 Hemasorb Spatula Wax 2gm Bone Sterile - [id number] Implanted:Qty: 1 on 10/15/2018 by Elvin Palmer MD at [facility] N/A: Spine Cervical Orthocon Inc 10/08/2020 OS-201 / / [id number] Cage Foundation 3d Cervical 14.9s56m6br 7 Deg - [id number] Implanted:Qty: 1 on 10/15/2018 by Elvin Palmer MD at [facility] N/A: Spine Cervical Core Link [id number] 12/02/2022 [id number] / / [id number] Core Link Anodyne 12mm Level 1 Spine Cervical Anterior Plate Bone - [id number] Implanted:Qty: 1 on 10/15/2018 by Elvin Palmer MD at [facility] N/A: Spine Cervical Core Link / / Core Link Anodyne 4mm 14mm Variable Angle Self Tap Spine Cervical Screw - [id number] Implanted:Qty: 4 on 10/15/2018 by Elvin Palmer MD at [facility] N/A: Spine Cervical Core Link / / Screw Bone Biased Angle L14 Mm Od3.5 Mm Cephelad Caudal Nonsterile Posterior Occipital Cervical Thoracic System 3500 Series - [id number] Implanted:Qty: 4 on 01/20/2019 by Elvin Palmer MD at [facility] N/A: Spine Cervical Core Link 02201-12 / / Screw Set Spinal 3500 Series - [id number] Implanted:Qty: 4 on 01/20/2019 by Elvin Palmer MD at [facility] N/A: Spine Cervical Core Link [id number] / / Core Link [id number] [place] 3.5mm 50mm Line Prebent Jin Spinal Nonsterile 3500 Series - [id number] Implanted:Qty: 1 on 01/20/2019 by Elvin Palmer MD at [facility] N/A: Spine Cervical Core Link [id number] / / Core Link [id number] [place] Screw Set 5500 Series - Sna - [id number] Implanted:Qty: 4 on 06/20/2019 by Elvin Palmer MD at [facility] N/A: Back Core Link [id number] / NA / Core Link [id number] [place] 5.5mm 35mm Line Prebent Jin Spinal Nonsterile 5500 Series - Sns - [id number] Implanted:Qty: 2 on 06/20/2019 by Elvin Palmer MD at [facility] N/A: Back Core Link [id number] / NS / [employer] [id number] Inqu Paste Mix Plus Business Banking Officer 10cc Bone Graft Hyaluronic Acid Poly - Sna - [id number] Implanted:Qty: 1 on 06/20/2019 by Elvin Palmer MD at [facility] N/A: Back [employer] [id number] 01/19/2021 [id number] / NA / [id number] Core Link [id number] [place] 6.5mm 40mm Spine Pedicle Screw Bone 5500 Series - Sna - [id number] Implanted:Qty: 4 on 06/20/2019 by Elvin Palmer MD at [facility] N/A: Back Core Link [id number] / NA / Cerapedics Inc 700-025 I Factor Allograft Putty Syringe Graft 2.5cc Bone - [id number] Implanted:Qty: 1 on 11/26/2020 by Elvin Palmer MD at [facility] N/A: Spine Cervical Cer[employer] Inc 09/08/2023 700-025 / / [id number] Cage Foundation 3d Cervical 14.1v28e1kk 7 Deg - [id number] Implanted:Qty: 1 on 11/26/2020 by Elvin Palmer MD at [facility] N/A: Spine Cervical Core Link 10/25/2024 [id number] / / [id number] Core Link Anodyne 12mm Level 1 Spine Cervical Anterior Plate Bone - [id number] Implanted:Qty: 1 on 11/26/2020 by Elvin Palmer MD at [facility] N/A: Spine Cervical Core Link / / Core Link Anodyne 4mm 14mm Variable Angle Self Tap Spine Cervical Screw - [id number] Implanted:Qty: 4 on 11/26/2020 by Elvin Palmer MD at [facility] N/A: Spine Cervical Core Link / / Procedures Procedure Name Priority Date/Time Associated Diagnosis Comments DEVICE CHECK - REMOTE Routine 12/26/2024 9:15 AM LINING MARKER NICM (nonischemic cardiomyopathy) (CMS/HCC) (HCC) NSVT (nonsustained ventricular tachycardia) (HCC) DEVICE CHECK - REMOTE Routine 11/18/2024 12:03 PM LINING MARKER NICM (nonischemic cardiomyopathy) (CMS/HCC) (HCC) NSVT (nonsustained ventricular tachycardia) (HCC) DEVICE CHECK - REMOTE Routine 10/27/2024 6:13 PM LINING MARKER NICM (nonischemic cardiomyopathy) (CMS/HCC) (HCC) NSVT (nonsustained ventricular tachycardia) (HCC) SCAN - RADIOLOGY/IMAGING 10/19/2024 HEPATITIS C ANTIBODY STAT 10/15/2018 11:20 AM LINING MARKER from Last 3 Months or Most Recently Relevant to Health Maintenance Results * DEVICE CHECK - REMOTE (12/26/2024 9:15 AM LINING MARKER) Anatomical Region Laterality Modality Other Narrative 12/29/2024 1:37 PM LINING MARKER [employer] Bio-monitor III Loop Recorder. Dx; Syncope, PSVT, AT, RVOT VT s/p ablation. DOI 03/05/2022-[facility]. [employer]ik remote monitoring. Routine ILR remote. Normal device function. Battery function-Ok. Presenting rhythm: VS, regular (SR). Medications: Norvasc. No auto or patient recorded episodes noted. Counters since last scheduled transmission on 11/14/2024. --0 Tachy (total: 27) --0 Sudden rate drop (total: 7) --0 Pause (total: 19) --0 Symptom (total: 0) --0 AF (total: 1) Ectopy beats: 1880. See scanned report. [employer] remote f/u 02/06/2025. Shelley Looney RN [facility] Chelly Pierce MD [facility] PRO CEDURES Final Result * DEVICE CHECK - REMOTE (11/18/2024 12:03 PM LINING MARKER) Anatomical Region Laterality Modality Other Narrative 12/08/2024 3:50 PM LINING MARKER Biotronik lllm implanted on March 05, 2022 [...] Continue to monitor remotely. Bandar Jordan Device Financial Analysis Manager [facility] Chelly Pierce MD [facility] PRO CEDURES Final Result * DEVICE CHECK - REMOTE (10/27/2024 6:13 PM LINING MARKER) Anatomical Region Laterality Modality Other Narrative 10/28/2024 8:21 AM LINING MARKER [employer] Bio-monitor III Loop Recorder. Dx; Syncope, PSVT, AT, RVOT VT s/p ablation. DOI 03/05/2022-[facility]. K[employer]ik remote monitoring. Unscheduled ILR remote due to [...] remote f/u 11/14/2024. Shelley Looney, LARISSA us [employer] Chelly Pierce MD [facility] PRO CEDURES Final Result * SCAN - RADIOLOGY/IMAGING (10/19/2024) Anatomical Region Laterality Modality Other us Jessica Shoemaker PATTERNMAKER PLASTER Final Res ult * Hepatitis C antibody (10/15/2018 11:20 AM LINING MARKER) Hep C Ab Non-Reactiv e Non-Reactiv e [facility] Blood specimen (specimen) 10/15/2018 11:20 AM LINING MARKER 10/15/2018 11:41 AM LINING MARKER Narrative [facility] - 10/15/2018 12:25 PM LINING MARKER us Notinfile Unknown LAB MICROBIOLOGY - GENERAL ORD ERABLES Final Result [facility] [address] Department [place] [address] from Last 3 Months or Most Recently Relevant to Health Maintenance Insurance MEDICARE AETNA MEDICARE AETNA Projects MEDICARE AETNA SENIOR SUPPLEMENT Advance Directives For more information, please contact: [phone] * Full Code (Latest Code Status on File) Date Activated Date Inactivated Comments 09/07/2023 10:10 AM 09/07/2023 2:44 PM * Full Code Date Activated Date Inactivated Comments 06/20/2019 12:01 PM 06/20/2019 6:34 PM * Full Code Date Activated Date Inactivated Comments 10/15/2018 2:08 PM 10/15/2018 4:39 PM * Full Code Date Activated Date Inactivated Comments 07/16/2018 2:30 PM 07/16/2018 6:36 PM Care Teams Sql Report Developer Relationship Specialty Start Date End Date Per Samson MD PCP - General Family Practice 06/01/23 Coretta Childers MD Consulting Physician Cardiology 08/28/23 Tima Henson MD [address] [place] [address] Consulting Physician Otolaryngology 08/28/23
--- OUTSIDE RECORDS SUMMARY | 2025-01-02 02:53 | XMS_ITS | Encounter Summary ---
Author Organization [facility] Address [address] [place] [address] Care Team Providers Care Landscape Maintenance Internship Name Role Phone Zafar Reddy MD Primary Care Provider [phone] Sung Mullen MD Primary Care Provider [phone] Zafar Reddy MD Primary Care Provider [phone] Sung Mullen MD Primary Care Provider [phone] Zafar Reddy MD Primary Care Provider [phone] Sung Mullen MD Primary Care Provider [phone] Edy Aviles DO Primary Care Provider [phone] Per Samson MD Primary Care Provider [phone] Coretta Childers MD Unavailable [phone] Tima Henson MD Unavailable [phone] Encounter Details Date Type Department Care Team (Late st Contact Info) Description 03/13/2017 Orders Only [facility] ProviderKamran MD [address] [place] [address] Social History Tobacco Use Types Packs/Day Years Used Date Smoking Tobacco: Every Day Alcohol Use Standard Drinks/Week Comments No 0 (1 standard drink = 0.6 oz pur e alcohol) Comments Unknown Sex and Gender Information Value Date Recorded Sex Assigned at Not on file Legal Sex Female 11:06 AM CHECK SCALER Gender Identity Not on file Sexual Orientation [...] on filedocumented in this encounter Care Teams Landscape Maintenance Internship Relationship Specialty Start Date End Date Zafar Reddy MD [address] [place] [address] PCP - General 06/10/12 11/12/20 Sung Mullen MD [address] [place] [address] PCP - General 11/13/20 11/15/20 Zafar Reddy MD [address] [place] [address] PCP - General 11/16/20 11/22/20 Sung Mullen MD [address] [place] [address] PCP - General 11/23/20 11/25/20 Zafar Reddy MD [address] [place] [address] PCP - General 11/26/20 05/20/21 Sung Mullen MD [address] [place] [address] PCP - General Internal Medicine 05/21/21 06/04/22 Edy Aviles DO [address] [place] [address] PCP - General Internal Medicine 06/05/22 05/31/23 Per Samson MD [address] [place] [address] PCP - General Family Practice 06/01/23 Coretta Childers MD [address] [place] [address] Consulting Physician Cardiology 08/28/23 Tima Henson MD [address] [address] Consulting Physician Otolaryngology 08/28/23 documented as of this encounter
--- NOTE | 2025-01-02 11:24 | P.PNAN_ITS ---
Anes - Initial Pre Proc Eval Procedure: Operation Date: 01/02/25 12:00 Proposed Procedures p Insertion Manny Cath - Mary Vargas MD Date/Time: 01/02/25 11:24 Surgeon: Mary Vargas MD Pre Op Diagnosis: Metastatic Bone Cancer Patient Data Age: 69 Gender: F Height: 1.56 m Weight: 68.9 kg Last Vital Signs Temp 97.7 F 01/02/25 10:30 Pulse 104 H 01/02/25 10:30 Resp 16 01/02/25 10:30 BP 149/64 H 01/02/25 10:30 Pulse Ox 99 01/02/25 10:30 O2 Del Method Room Air 01/02/25 10:30 Allergies Allergy/AdvReac Type Severity Reaction Status Date / Time codeine Allergy Intermediate Hives Verified 12/28/24 08:40 Home Medications ?Medication ?Instructions ?Recorded ?Confirmed ?Type bedehuiv-ehq-iloug acid 0.4 1 tablet PO DAILY 01/12/20 01/02/25 History mg-lycopene 300 mcg-lutein 250 mcg tablet (Centrum Silver) cyclosporine 0.05 % eye drops in a 1 drp EACH EYE Q12H 06/13/21 01/02/25 History dropperette (Restasis) mineral oil 15 ml PO DAILY 05/19/22 01/02/25 History polyethylene glycol 3350 17 gram 17 g PO DAILY 05/19/22 01/02/25 History oral powder packet (Miralax) bumetanide 1 mg tablet 2 mg PO DAILY 12/30/23 01/02/25 History metolazone 2.5 mg tablet 2.5 mg PO EVERY OTHER DAY 12/30/23 01/02/25 History omeprazole 40 mg capsule,delayed See Rx Instructions .Route 10/17/24 01/02/25 Rx release .COMPLEX #180 caps atorvastatin 20 mg tablet See Rx Instructions .Route 11/03/24 01/02/25 Rx .COMPLEX #90 tabs calcium 600 mg (as carbonate)-vit 1 tablet PO DAILY 11/16/24 01/02/25 History D3 20 mcg (800 unit) chewable tablet (Caltrate plus D) tramadol 50 mg tablet 50 mg PO Q8H PRN pain #90 tabs 11/29/24 01/02/25 Rx metronidazole 500 mg tablet 500 mg PO Q12H #20 tabs 12/09/24 12/22/24 Rx potassium chloride 20 mEq 20 meq PO BID 12/09/24 01/02/25 History tablet,extended release psyllium husk 3.4 gram/5.4 gram 1 tbsp PO DAILY 12/09/24 01/02/25 History oral powder (Metamucil) ferrous sulfate 142 mg (45 mg 142 mg PO BIDWM 30 days #60 tabs 12/16/24 12/22/24 Rx iron) tablet,extended release (Slow Release Iron) fluconazole 100 mg tablet 100 mg PO ONCE #1 tablet 12/27/24 Rx (Diflucan) dulaglutide 0.75 mg/0.5 mL 0.75 mg (0.5 mL) subcut WEEKLY #6 12/28/24 Rx subcutaneous pen injector mL (Trulicity) Patient hx anesthesia problems: none Family hx anesthesia problems: none Results Review: All pre-operative results and documents have been reviewed as part of the pre- operative evaluation. 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46 no issue since with an EF of 69% Esophageal web Diverticulitis Vaginal fistula Insomnia Anxiety Hypertension Neuropathy Rosacea Migraine Herniated disc Headache Depression Osteoporosis Surgical History Surgical History History of lumbar surgery (06/2019) History of left salpingo-oophorectomy for benign cyst History of colonoscopy with polypectomy History of cervical spinal surgery History of cardiac radiofrequency ablation (2008) Ablation x3 for atrial tachycardia and right ventricle outflow tract tachycardia done at [facility] History of nasal surgery History of foot surgery (2015) repair of torn ligament in right foot History of knee replacement procedure of right knee (09/2014) revision-poly exchange 06/11/2020 History of hemorrhoidectomy (10/2012) History of (04/2001) Family History Family History Father Cerebrovascular accident Family history of heart disease in male family member before age 55 Hypertension Family history of lung cancer Sibling Family history of heart disease in male family member before age 55 Mother Cancer Other Family history of cardiovascular disease Social History Social History Social History: Surrogate medical decision maker: Dio Andrade, son. Code status: Full code. Smoking packs per day: 0.5 Smoking cigarettes per day: 10.0 Years smoked: 50 Smoking pack-years: 25.00 Smoking status: Current every day smoker Tobacco type: cigarettes Second hand tobacco smoke exposure: Yes Alcohol intake: never Substance use: never Substance use type: does not use Do You Feel Safe in your Home?: Yes Lack of Transportation: No Lack of Food: Never True Current Housing: I Have Housing Concerned About Future Housing: No Difficulty Paying Gas/Electric Bills: No Difficulty Paying for Meds: No Currently Unemployed: No Education: Decline to Answer Difficulty w/ Childcare or Family Care: No Living arrangements: with family Additional living arrangements comments: . Spiritual care concerns: No Anes - Eval Final PreProcedure Day of Procedure 01/02/25 11:24 Patient weight: obese Lungs: normal air movement Airway: Mallampati scale and special considerations (Upper and lower perm im plants, not removable. ) Neurological: alert and oriented Last oral intake: >/= 8 hours ASA classification: IV Emergent: no Anesthetic plan: proceed Anesthesia type and monitoring: general GIVS and standard monitoring Results Review: All pre-operative results and documents have been reviewed as part of the pre- operative evaluation. Pt for port for metastatic ca to bone, unclear primary per pt and notes. COPD and cont to smoke 1/2 ppd, ECHO 2021 w LVEF 73%. Informed Consent: The patient's anesthetic plan and its attendant risks and benefits were discussed with the patient/family/POA. Questions were solicited and answers provided to the satisfaction of the patient/family/POA.
--- NOTE | 2025-01-02 11:29 | WPDHPUPDATE1 ---
History and Physical Update Update Date/Time: 01/02/25 11:29 History and Physical has been reviewed, including an updated exam of the patient. There are NO changes in the patient's condition. Risks, benefits, and alternatives have been discussed and questions answered. Patient agrees to proceed with procedure. will proceed with placement of port for chemotherapy access
[2025-01-02] MEDS: ceFAZolin 2 GM/D5W 50 ML 2 GM/50 ML BAG IVPB (11:49)
[2025-01-02] MEDS: BUPIVACAINE/EPINEPHRINE 0.5% 30 ML VIAL INFILTRATE (12:13)
[2025-01-02] MEDS: HEPARIN SODIUM 5,000 UNITS/ML VIAL 5000 UNITS IRRIGATION (12:14)
[2025-01-02] MEDS: HEPARIN SODIUM, PORCINE 10,000 UNITS/10 ML VIAL 3000 UNITS IV PUSH (12:15)
[2025-01-02] MEDS: LACTATED RINGERS 1,000 ML 30 ML IV CONT (12:33)
[2025-01-02] MEDS: fentaNYL CITRATE INJ (*CRX) 100 MCG/2 ML VIAL 25 MCG IV PUSH ×4 (12:44→13:20)
--- NOTE | 2025-01-02 12:49 | W.PM.PROC2 ---
Procedure Note - Detailed Date of Procedure 01/02/25 Pre-op Diagnosis Metastatic Bone Cancer Post-op Diagnosis Same Procedure Performed Placement of left internal jugular venous access device under both ultrasound and fluoroscopic guidance Surgeon Mary Vargas MD Anesthesia General and Local Indications 69-year-old female with metastatic bone cancer Findings 1st stick left IJ Description of Procedure Patient was brought into the operating room and placed in the supine position. After adequate induction of mac anesthesia, the patient was prepped and draped in normal sterile fashion. Time-out was then done to verify the patient's identity, as well as the procedure being performed. I began by making a small incision in the left chest. I then used the ultrasound to gain access into the left internal jugular vein. Once access was gained, I placed the guidewire in the vein and confirmed proper positioning. I then locally anesthetized the area in the left chest. I then enlarged the incision including making a subcutaneous pocket inferiorly to allow placement of the port itself. I proceeded to tunnel the catheter from the chest to the left neck insertion site. I then placed a dilating sheath over the guidewire into the left internal jugular vein via sterile Seldinger technique. This was once again done and confirmed via fluoroscopic guidance. I then removed the dilator and the guidewire, now just leaving the sheath in the vein. I then fed the previously flushed catheter into the left internal jugular vein under fluoroscopic guidance. At approximately 25 cm, the catheter was noted to be near the atrial caval junction. I then peeled away the sheath, now just leaving the catheter in the vein. I then was able to easily draw and flush from the catheter. The catheter was cut to fit and attached to the port itself. The port was placed into the previously made subcutaneous pocket and sutured in with 0 Ethibond suture. Final fluoroscopic view showed the termination of the catheter at the atrial caval junction with a nice smooth curvature back to the port itself. I was able to gain access to the port with a Heredia needle and was able to easily draw and flush from the port. I then flushed 4 cc of a final heparin flush into the port. The incision was closed with 3 0 Vicryl suture in the subcutaneous tissue and the skin was closed with 4 O Monocryl subcuticular suture. Dermabond was then placed on wound. The patient tolerated the procedure well and will be sent to the recovery room in stable condition. Implants left internal jugular venous access device Estimated Blood Loss 5 Pathology None sent Complications No immediate complications Condition Stable Disposition PACU [facility] Billing Surgery - Charge Forward: Surgery Billing
== END 2025-01-02 14:20 | disposition home or self-care (01) ==
PROVIDERS: PCP Family Medicine; Visit Provider Surgery
PROC: (CPT 36561; principal; 2025-01-02 12:00)
DX: C79.51 Secondary malignant neoplasm of bone (principal); I10 Essential (primary) hypertension; I47.19 Other supraventricular tachycardia; G47.00 Insomnia, unspecified; F41.9 Anxiety disorder, unspecified; F32.A Depression, unspecified; M81.0 Age-related osteoporosis without current pathological fracture; G62.9 Polyneuropathy, unspecified; F17.210 Nicotine dependence, cigarettes, uncomplicated; E66.9 Obesity, unspecified; Z68.28 Body mass index [BMI] 28.0-28.9, adult; Z79.891 Long term (current) use of opiate analgesic; Z79.85 Long-term (current) use of injectable non-insulin antidiabetic drugs; Z98.890 Other specified postprocedural states; Z98.1 Arthrodesis status; Z87.19 Personal history of other diseases of the digestive system; Z86.79 Personal history of other diseases of the circulatory system; Z80.1 Family history of malignant neoplasm of trachea, bronchus and lung; Z82.49 Family history of ischemic heart disease and other diseases of the circulatory system
CPT/HCPCS: 36561; 77001; C1788; J0690; J1644; J2003; J2250; J2405; J2704; J3010; J7030; J7120

== ENCOUNTER 2025-01-04 12:27 | Outpatient (CLI) | payer MEDICARE, SELFPAY ==
[2025-01-04 13:03] LABS: Basophils Absolute Auto 0.1 K/mm3 (0.0-0.1); Basophils Percent Auto 0.8 % (0.2-1.2); Eosinophils Absolute Auto 0.2 K/mm3 (0-0.3); Eosinophils Percent Auto 2.1 % (0-4.4); Hematocrit 35.1 % (37.0-47.0); Hemoglobin 11.1 g/dL (12.0-15.0); Immature Granulocyte Absolute 0.02 K/mm3 (0.00-0.031); Immature Granulocyte Percent A 0.3 % (0-0.5); Lymphocytes Absolute Auto 1.68 K/mm3 (0.9-3.2); Lymphocytes Percent Auto 23.1 % (18.3-44.2); Mean Corpuscular HGB Conc 31.6 g/dl (32-36); Mean Corpuscular Hemoglobin 27.7 pg (26-34); Mean Corpuscular Volume 87.5 fl (80-100); Mean Platelet Volume 9.3 fl (7.4-10.4); Monocytes Absolute Auto 0.8 K/mm3 (0.1-0.6); Monocytes Percent Auto 10.7 % (2.6-8.5); Neutrophils Absolute Auto 4.6 K/mm3 (1.3-6.7); Platelet Count Result 465 k/mm3 (150-375); Red Blood Count 4.01 M/mm3 (4.2-5.4); Red Cell Distribution Width 19.3 % (11.5-14.5); White Blood Count 7.3 K/mm3 (4.5-10.0)
[2025-01-04 13:46] LABS: Alanine Aminotransferase 19 U/L (6-35); Albumin Level 3.3 g/dL (3.5-5.1); Alkaline Phosphatase 156 U/L (38-126); Anion Gap 7 mmol/L (4-12); Aspartate Amino Transferase 35 U/L (14-36); Bilirubin,Total 0.5 mg/dL (0.2-1.3); Blood Urea Nitrogen 10 mg/dL (7-17); Calcium 10.2 mg/dL (8.4-10.2); Carbon Dioxide 28 mmol/L (22-30); Chloride 102 mmol/L (98-107); Estimated Glomerular Filt Rate > 60; Glucose 89 mg/dL (65-110); Potassium 4.5 mmol/L (3.4-5.0); Sodium 137 mmol/L (137-145)
--- OUTSIDE RECORDS SUMMARY | 2025-01-04 14:00 | XMS_ITS | Referral Summary ---
Author Organization [facility] Address [address] [place] [address] Care Team Providers Care Operations Examiner Name Role Phone Edy Aviles DO Primary Care Provider [phone] Source Comments [facility],non-owned Affiliates and Associated Physician Practices is amultiple site organization consisting of ambulatory clinics and hospital sitesin [place], [place], [place] and [place]. This disclosure is being madepursuant to the Care Everywhere program and may not contain all information available regarding this patient. Last updated 18.[facility] Allergies Active Allergy Reactions Criticality Noted Date [...] Immunizations Name Administration Dates Next Due Ian Migo.me primary monoval ent 12+ yr 0.3mL Purple [...] Comments Blood Pressure 148/57 10/26/2021 7:27 AM SORTING LIVESTOCK WORKER Pulse 95 10/26/2021 7:27 AM SORTING LIVESTOCK WORKER Temperature 36.8 C (98.3 F) 10/26/2021 7:27 AM SORTING LIVESTOCK WORKER Respiratory Rate 16 10/25/2021 10:58 PM SORTING LIVESTOCK WORKER Oxygen Saturation 100% 10/26/2021 7:27 AM SORTING LIVESTOCK WORKER Inhaled Oxygen Concentration 40% 10/25/2021 1 2:10 PM SORTING LIVESTOCK WORKER Weight 85.7 kg (189 lb) 07/08/2022 [...] 3-4 weeks. Medical Devices Implanted Type Area Interactive Video Technician Device Identifier Shelf Expiration Date Model / Serial / Lot Pin Hlf 255mm 5mm Jtx Lng Ss 35mm Extfix Implanted:Qty: 2 on 10/11/2021 by Jovon Maloney, DO at [facility] Left: [employer] [id number] / / Pin Hlf 40mm 5mm Jtx Lng Ti Ntrd Extfix Implanted:Qty: 2 on 10/11/2021 by Jovon Maloney, DO at [facility] Left: [employer] [id number] / / Bar Extfix 200mm Jtx Cfbr Nonster Disp Implanted:Qty: 2 on 10/11/2021 by Jovon Maloney, DO at [facility] Left: [employer] [id number] / / Screw 3.5mm 46mm Ft Hex Drv Nlckg Fly Implanted:Qty: 1 on 10/25/2021 by Jovon Maloney, DO at [facility] Left: [employer] [id number] / / Screw 3.5mm 50mm Ft Nonlock Hex Drv Elb Implanted:Qty: 2 on 10/25/2021 by Jovon Maloney, DO at [facility] Left: [employer] [id number] / / Screw 3.5mm 55mm Ft Slf-Tap Hex Lopro Implanted:Qty: 1 on 10/25/2021 by Jovon Maloney, DO at [facility] Left: [employer] [id number] / / Screw 3.5mm 65mm T15 Lck Slf-Tap Tip Tpr Implanted:Qty: 3 on 10/25/2021 by Jovon Maloney, DO at [facility] Left: [employer] [id number] / / Screw 3.5mm 70mm T15 Lck Slf-Tap Tip Tpr Implanted:Qty: 2 on 10/25/2021 by Jovon Maloney, DO at [facility] Left: [employer] [id number] / / Plate 5 Hl Lck Lopro Dist Blt Tip Tib Lt Implanted:Qty: 1 on 10/25/2021 by Jovon Maloney, DO at [facility] Left: [employer] [id number] / / Screw 3.5mm 65mm 2.2mm Mldir Lck Sq Drv Implanted:Qty: 1 on 10/25/2021 by Jovon Maloney, DO at [facility] Left: [employer] [id number] / / Screw 3.5mm 80mm Sq Drv Nonlock Lopro Implanted:Qty: 1 on 10/25/2021 by Jovon Maloney, DO at [facility] Left: [employer] [id number] / / Screw 3.5mm 75mm T15 Lck Slf-Tap Tip Tpr Implanted:Qty: 1 on 10/25/2021 by RevJovon roa DO at [facility] Left: [employer] [id number] / / Plate 5 Hl Lopro Lck Cha Marquez Dist 61 Implanted:Qty: 1 on 10/25/2021 by Jovon Maloney DO at [facility] Left: [employer] [id number] / / Screw 3.5mm 34mm Ft Nonlock Hex Drv Elb Implanted:Qty: 1 on 10/25/2021 by Jovon Maloney DO at [facility] Left: [employer] [id number] / / Screw 3.5mm 38mm Ft Slf-Tap Hex Lopro Implanted:Qty: 1 on 10/25/2021 by Jovon Maloney DO at [facility] Left: [employer] [id number] / / Screw 3.5mm 40mm Ft Slf-Tap Hex Lopro Implanted:Qty: 1 on 10/25/2021 by Jovon Maloney DO at [facility] Left: [employer] [id number] / / Explanted Type Area Interactive Video Technician Device Identifier Shelf Expiration Date Model / Serial / Lot Clamp Extfix Jtx 10.5mm Bar To Bar Mr Sf Explanted:Qty: 2 on 10/11/2021 at [facility] Left: [employer] [id number] / / Screw 3.5mm 55mm Ft Slf-Tap Hex Lopro Explanted:Qty: 1 on 10/25/2021 by Jovon Maloney DO at [facility] Left: [employer] [id number] / / Wire K 1.6mm 6in Hlf Bynt Pnt Ss Fx Explanted:Qty: 4 on 10/25/2021 by Jovon Maloney DO at [facility] Left: [employer] [id number] / / Screw 3.5mm 36mm Ft Slf-Tap Hex Lopro Explanted:Qty: 1 on 10/25/2021 by Jovon Maloney DO at [facility] Left: [employer] [id number] / / Procedures Procedure Name Priority Date/Time Associated Diagnosis Comments BASIC METABOLIC PANEL (CALCIUM TOTAL) Routine 10/26/2021 2:31 AM SORTING LIVESTOCK WORKER Closed fracture of left tibial plateau, initial encounter from Last 3 Months or Most Recently Relevant to Health Maintenance Results * (ABNORMAL) BASIC METABOLIC PANEL (CALCIUM TOTAL) (10/26/2021 2:31 AM SORTING LIVESTOCK WORKER) BUN 14 7 - 26 mg/dL 10/26/2021 3:29 AM [facility] Creatinine 0.95 0.56 - 0.96 mg/dL 10/26/2021 3:29 AM [facility] Sodium 134(L) 136 - 145 mmol/L 10/26/2021 3:29 AM [facility] Potassium 4.2 3.5 - 4.5 mmol/L 10/26/2021 3:29 AM [facility] Chloride 102 98 - 107 mmol/L 10/26/2021 3:29 AM [facility] CO2 25 22 - 29 mmol/L 10/26/2021 3:29 AM [facility] Glucose 106 70 - 115 mg/dL 10/26/2021 3:29 AM [facility] Calcium 8.9 8.4 - 10.2 mg/dL 10/26/2021 3:29 AM [facility] Anion Gap 11 8 - 18 10/26/2021 3:29 AM [facility] BUN/Creatinine Ratio 15 7 - 23 10/26/2021 3:29 AM [facility] Osmolality Calculated 279 270 - 300 mOsm/kg 10/26/2021 3:29 AM [facility] eGFR by CKD-EPI 63(L) >=90 mL/min/1.7 3 m2 10/26/2021 3:29 AM [facility] Blood BLOOD SPECIMEN / Unknown Lab Venipuncture / Unknown 10/26/2021 2:31 AM SORTING LIVESTOCK WORKER 10/26/2021 3:01 AM [facility] Jovon Maloney DO LAB - CHEMISTRY [facility] [address] [place] [address], [facility] [phone] from Last 3 Months or Most Recently Relevant to Health Maintenance Advance Directives * Full Code (Latest Code Status on File) Date Activated Date Inactivated Comments 10/25/2021 1:30 PM 10/26/2021 1:32 PM * Full Code Date Activated Date Inactivated Comments 10/11/2021 12:36 PM 10/15/2021 3:44 PM Care Teams Operations Examiner Relationship Specialty Start Date End Date Edy Aviles DO [address] [place] [address] PCP - General 06/17/22
--- OUTSIDE RECORDS SUMMARY | 2025-01-04 14:00 | XMS_ITS | Clinical Summary ---
[facility] Address [address] [place] [address] Care Team Providers Care Asset Protection Officer Name Role Phone Unavailable Primary Care Provider Unavailabl e Allergies Active Allergy Reactions Criticality Noted Date Comments Codeine Hives,Nausea and Vomiting High 10/10/2021 Lisinopril Nausea and Vomiting Low 08/19/2021 Nausea and abdom pain Nausea and abdom pain Nausea and abdom pain Nausea and abdom pain Nausea and abdom pain Nausea and abdom pain Medications atorvastatin (LIPITOR) 20 mg tablet Take 20 mg by mouth daily. Active bumetanide (BUMEX) 2 mg tablet Take 2 mg by mouth daily. 4 Active metOLazone (ZAROXOLYN) 2.5 mg tablet Take 2.5 mg by mouth daily. 4 Active omeprazole (PriLOSEC) 40 mg Capsule, Delayed Release(E.C.) Take 40 mg by mouth 2 times daily. Active potassium chloride (K-TAB) 20 mEq Extended Release tablet Take 40 mEq by mouth daily. Active cycloSPORINE (RESTASIS) 0.05 % Drops 1 Drop by See Admin Instructions route 2 times daily. Takes .04mg Active traMADoL (ULTRAM) 50 mg tablet Take 50 mg by mouth every 8 hours as needed for Pain. Active multivit-min/ir on/FA/vit K/lut (CENTRUM SILVER WOMEN ORAL) Take by mouth. Act leo calcium carbonate/vitam in D3 (CALTRATE 600 + D ORAL) Take 600 mg by mouth 2 times daily. Active cholecalciferol , Vitamin D3, 125 mcg (5,000 unit) Capsule Take 5,000 Units by mouth daily. Active MINERAL OIL ORAL Take by mouth. Activ e POLYETHYLENE GLYCOL 3350 ORAL Take by mouth daily. Dissolve in 8 ounces of fluid and drink entire liquid Active psyllium (METAMUCIL) Packet Take 1 Packet by mouth daily. 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) from Last 3 Months Family History Medical History Relation Name Comments No Known Problems Child Stroke Father Cancer - Other Mother Heart Disease Mother No Known Problems Sister Relation Name Status Comments Child Alive Father Mother Sister Alive Social History Tobacco Use Types Packs/Day Years Used Date Smoking Tobacco: Never Smokeless Tobacco: Never Tobacco Cessation:Counseling Given: Not Answered Alcohol Use Standard Drinks/Week Comments Never 0 (1 standard drink = 0.6 oz pur e alcohol) Comments Unknown Sex and Gender Information Value Date Recorded Sex Assigned at Not on file Legal Sex Female 2:15 PM WATER TANKER DRIVER Gender Identity Not on file Sexual Orientation Not on file Last Filed Vital Signs Vital Sign Reading Time Taken Comments Blood Pressure 136/80 01/04/2025 11:45 AM WATER TANKER DRIVER Pulse 97 01/04/2025 11:41 AM WATER TANKER DRIVER Temperature 36.4 C (97.5 F) 01/04/2025 11:41 AM WATER TANKER DRIVER Respiratory Rate 15 01/04/2025 11:41 AM WATER TANKER DRIVER Oxygen Saturation 92% 01/04/2025 11:41 AM WATER TANKER DRIVER Inhaled Oxygen Concentration - - Weight 71.7 kg (158 lb) 01/04/2025 11:41 AM WATER TANKER DRIVER Height 154.9 cm (5' 1 ) 01/04/2025 11:41 AM WATER TANKER DRIVER Body Mass Index 29.85 01/04/2025 11:41 AM WATER TANKER DRIVER Plan of Treatment Upcoming Encounters Date Type Department Care Team (Late st Contact Info) Description 01/19/2025 11:00 AM CDT Office Visit [facility] Oncology and Hematology [facility] [address] [place] [address] Basil Ludwig MD [address] [place] [address] Health Maintenance Due Date Last Done Comments DTAP/TDAP/TD VACCINES (1 - Tdap) 1975 Traditional Medicare (ACO) A nnual Wellness Visit 1975 BREAST CANCER SCREENING 1996 COLORECTAL SCREENING 2001 Colorectal Cancer Screening 2001 FIT-DNA Q 3 years 2001 FIT/FOBT Q 1 year 2001 Flex Sig/CT Colonography Q 5 years 2001 PNEUMOCOCCAL VACCINE 65+ YEA RS (1 of 1 - PCV) 2006 ZOSTER VACCINE (1 of 2) 2006 OSTEOPOROSIS SCREENING 2021 INFLUENZA VACCINE (#1) 2024 COVID-19 Vaccine ( season) 2024 09/08/2021, 03/05/2021, 02/05/2021 RSV VACCINE (60+ or ) (1 - 1-dose 75+ series) 2031 Insurance MEDICARE PART A AND B [employer] MEDICARE SUPP AESSI
--- OUTSIDE RECORDS SUMMARY | 2025-01-04 14:00 | XMS_ITS | Patient Health Summary ---
Author Organization [facility] Address [address] [place] [address] Care Team Providers Care Exhaust And Muffler Fitter Name Role Phone Edy Aviles DO Primary Care Provider [phone] Note from [facility],non-owned Affiliates and Associated Physician Practices is amultiple site organization consisting of ambulatory clinics and hospital sitesin [place], [place], [place] and [place]. This disclosure is being madepursuant to the Care Everywhere program and may not contain all information available regarding this patient. Last updated 18.[facility] Allergies * Codeine(Urticaria,Nausea and/or Vomiting) [...] Comments Blood Pressure 148/57 10/26/2021 7:27 AM HOUSE CLEANER Pulse 95 10/26/2021 7:27 AM HOUSE CLEANER Temperature 36.8 C (98.3 F) 10/26/2021 7:27 AM HOUSE CLEANER Respiratory Rate 16 10/25/2021 10:58 PM HOUSE CLEANER Oxygen Saturation 100% 10/26/2021 7:27 AM HOUSE CLEANER Inhaled Oxygen Concentration 40% 10/25/2021 1 2:10 PM HOUSE CLEANER Weight 85.7 kg (189 lb) 07/08/2022 9:04 AM CDT Height 156.2 cm (5' 1.5 ) 07/08/2022 9:04 AM CDT Body Mass Index 35.13 07/08/2022 9:04 AM CDT Medical Devices Implanted Type Area Radiologic Technology Instructor Device Identifier Shelf Expiration Date Model / Serial / Lot Pin Hlf 255mm 5mm Jtx Lng Ss 35mm Extfix Implanted:Qty: 2 on 10/11/2021 by Jovon Maloney DO at [facility] Left: [employer] [id number] / / Pin Hlf 40mm 5mm Jtx Lng Ti Ntrd Extfix Implanted:Qty: 2 on 10/11/2021 by Jovon Maloney DO at [facility] Left: [employer] [id number] / / Bar Extfix 200mm Jtx Cfbr Nonster Disp Implanted:Qty: 2 on 10/11/2021 by Jovon Maloney DO at [facility] Left: [employer] [id number] / / Screw 3.5mm 46mm Ft Hex Drv Nlckg Fly Implanted:Qty: 1 on 10/25/2021 by Jovon Maloeny DO at [facility] Left: [employer] [id number] / / Screw 3.5mm 50mm Ft Nonlock Hex Drv Elb Implanted:Qty: 2 on 10/25/2021 by Jovon Maloney DO at [facility] Left: [employer] [id number] / / Screw 3.5mm 55mm Ft Slf-Tap Hex Lopro Implanted:Qty: 1 on 10/25/2021 by Jovon Maloney DO at [facility] Left: [employer] [id number] / / Screw 3.5mm 65mm T15 Lck Slf-Tap Tip Tpr Implanted:Qty: 3 on 10/25/2021 by Jovon Maloney DO at [facility] Left: [employer] [id number] / / Screw 3.5mm 70mm T15 Lck Slf-Tap Tip Tpr Implanted:Qty: 2 on 10/25/2021 by Jovon Maloney, DO at [facility] Left: [employer] [id number] / / Plate 5 Hl Lck Lopro Dist Blt Tip Tib Lt Implanted:Qty: 1 on 10/25/2021 by Jovon Maloney, DO at [facility] Left: [employer] [id number] / / Screw 3.5mm 65mm 2.2mm Mldir Lck Sq Drv Implanted:Qty: 1 on 10/25/2021 by Jovon Maloney, DO at [facility] Left: [employer] [id number] / / Screw 3.5mm 80mm Sq Drv Nonlock Lopro Implanted:Qty: 1 on 10/25/2021 by Jovon Maloney, DO at [facility] Left: [employer] [id number] / / Screw 3.5mm 75mm T15 Lck Slf-Tap Tip Tpr Implanted:Qty: 1 on 10/25/2021 by Jovon Maloney, DO at [facility] Left: [employer] [id number] / / Plate 5 Hl Lopro Lck Ulna Olcrn Dist 61 Implanted:Qty: 1 on 10/25/2021 by Jovon Maloney, DO at [facility] Left: [employer] [id number] / / Screw 3.5mm 34mm Ft Nonlock Hex Drv Elb Implanted:Qty: 1 on 10/25/2021 by Jovon Maloney, DO at [facility] Left: [employer] [id number] / / Screw 3.5mm 38mm Ft Slf-Tap Hex Lopro Implanted:Qty: 1 on 10/25/2021 by Jovon Maloney, DO at [facility] Left: [employer] [id number] / / Screw 3.5mm 40mm Ft Slf-Tap Hex Lopro Implanted:Qty: 1 on 10/25/2021 by Jovon Maloney, DO at [facility] Left: [employer] [id number] / / Explanted Type Area Radiologic Technology Instructor Device Identifier Shelf Expiration Date Model / Serial / Lot Clamp Extfix Jtx 10.5mm Bar To Bar Mr Buitrago Explanted:Qty: 2 on 10/11/2021 at [facility] Left: [employer] [id number] / / Screw 3.5mm 55mm Ft Slf-Tap Hex Lopro Explanted:Qty: 1 on 10/25/2021 by Jovon Maloney DO at [facility] Left: [employer] [id number] / / Wire K 1.6mm 6in Hlf Bynt Pnt Ss Fx Explanted:Qty: 4 on 10/25/2021 by Jovon Maloney DO at [facility] Left: [employer] [id number] / / Screw 3.5mm 36mm Ft Slf-Tap Hex Lopro Explanted:Qty: 1 on 10/25/2021 by Jovon Maloney DO at [facility] Left: [employer] [id number] / / Procedures * DERMATOPATHOLOGY(Performed 02/23/2024) * [...] is included. Case Report Dermatopathology Report Case: [id number] Authorizing Provider: Israel Lang MD Collected: 02/23/2024 12:00 AM Ordering Location: [facility] - Received: 02/25/2024 06:55 AM DermPath Lab Pathologist: Maryanne Olmos MD Specimens: A) - Skin, right paranasal cheek B) - Skin, right cheek C) - Skin, right parietal scalp 1:41 PM [facility] Final Diagnosis Specimen A. 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 SKIN, right parietal scalp: NEUROFIBROMA (D36.10) 1:41 PM [facility] Clinical History A: R/O BCC vs other B: R/O BCC vs other C: R/O BCC 1:41 PM [facility] Gross Description Specimen [...] five pieces in aggregate shave biopsy measuring 94y36h8 mm. Jar 0. 1:41 PM [facility] Microscopic Description Specimen [...] collagen is delicate and pale. 1:41 PM [facility] Disclaimer An external and internal positive and negative controls are appropriate for the histochemical, immunohistochemical and immunofluorescence stain(s) in this case (if any), except where stated explicitly. The performance characteristics of the stain(s) cited in this report were developed and its performance characteristic determined by the Dermatopathology Laboratory at [facility], directed by Dr. Yessi Jackman. These tests need not be, and therefore are not, approved by the [place] Food and Drug Administration. The tests are used for clinical purposes. Billing Codes Specimen Charges Stain Charges 95668 11029 40046 1 1 1 4 1:41 PM CDT [...] LAB - PATHOLOGY/CYTO LOGY ORDERABLES DERMATOPATHOLOGY LABORATORY [facility] - Department of Dermatology [address], [address] [phone] * XR KNEE LEFT 3VW (07/08/2022 9:02 AM CDT) Only the most recent of9 resultswithin the time period is included. Anatomical Region Laterality Modality Lower Extremity Radiographic Courtney ging 07/08/2022 9:33 AM CDT Impressions 07/08/2022 9:41 AM CDT IMPRESSION: Unchanged fracture alignment. > Dictated by Ramonita Hernandez M.D. (vice president process). I, Tramaine Ceron MD have personally reviewed and interpreted this examination/study. > Interpreting Provider: Tramaine Ceron MD on 07/08/2022 9:41 AM Narrative 07/08/2022 9:41 AM CDT PROCEDURE: XR KNEE LEFT 3VW, DATE/TIME OF EXAM: 07/08/2022 9:02 AM, LOCATION [facility] INDICATION: S82.142D: Closed fracture of left tibial [...] DATE/TIME OF EXAM: 07/08/2022 9:02 AM, LOCATION [facility] INDICATION: S82.142D: Closed fracture of left tibial [...] alignment. > Dictated by Ramonita Hernandez M.D. (vice president process). I, Tramaine Ceron MD have personally reviewed and interpreted this examination/study. > Interpreting Provider: Tramaine Ceron MD on 07/08/2022 9:41 AM Jovon Maloney DO DIAGNOSTIC IMAGING O RDERABLES * (ABNORMAL) CBC W/O DIFFERENTIAL (10/26/2021 2:31 AM HOUSE CLEANER) Only the most recent of6 resultswithin the time period is included. WBC 12.2(H) 3.5 - 10.5 10 3/uL 10/26/2021 3:15 AM HOUSE CLEANER [facility] RBC 2.39(L) 3.80 - 5.20 10 6/uL 10/26/2021 3:15 AM HOUSE CLEANER [facility] Hemoglobin 7.0(L) 12.0 - 15.6 g/dL 10/26/2021 3:15 AM [facility] Hematocrit 21.7(L) 35.0 - 45.0 % 10/26/2021 3:15 AM [facility] MCV 90.8 80.7 - 98.3 fL 10/26/2021 3:15 AM [facility] MCH 29.3 26.7 - 34.0 pg 10/26/2021 3:15 AM [facility] MCHC 32.3 30.8 - 35.9 g/dL 10/26/2021 3:15 AM [facility] Platelet Count 508(H) 150 - 400 10 3/uL 10/26/2021 3:15 AM [facility] RDW-SD 45.7 36.0 - 50.0 fL 10/26/2021 3:15 AM [facility] RDW-CV 14.1 11.2 - 14.8 % 10/26/2021 3:15 AM [facility] MPV 8.9(L) 9.4 - 12.9 fL 10/26/2021 3:15 AM [facility] nRBC Absolute 0.00 0 10 3/uL 10/26/2021 3:15 AM [facility] nRBC Auto 0.0 0 /100 WBC 10/26/2021 3:15 AM [facility] Blood BLOOD SPECIMEN / Unknown Lab Venipuncture / Unknown 10/26/2021 2:31 AM HOUSE CLEANER 10/26/2021 3:01 AM [facility] Jovon Maloney DO LAB - HEMATOLOGY ORD ERABLES Performing Organization Address City/State/[facility] Co de Phone Number [facility] [address] [place] [phone], [facility] [phone] * (ABNORMAL) BASIC METABOLIC PANEL (CALCIUM TOTAL) (10/26/2021 2:31 AM HOUSE CLEANER) Only the most recent of6 resultswithin the time period is included. BUN 14 7 - 26 mg/dL 10/26/2021 3:29 AM [facility] Creatinine 0.95 0.56 - 0.96 mg/dL 10/26/2021 3:29 AM [facility] Sodium 134(L) 136 - 145 mmol/L 10/26/2021 3:29 AM [facility] Potassium 4.2 3.5 - 4.5 mmol/L 10/26/2021 3:29 AM [facility] Chloride 102 98 - 107 mmol/L 10/26/2021 3:29 AM [facility] CO2 25 22 - 29 mmol/L 10/26/2021 3:29 AM [facility] Glucose 106 70 - 115 mg/dL 10/26/2021 3:29 AM [facility] Calcium 8.9 8.4 - 10.2 mg/dL 10/26/2021 3:29 AM [facility] Anion Gap 11 8 - 18 10/26/2021 3:29 AM [facility] BUN/Creatinine Ratio 15 7 - 23 10/26/2021 3:29 AM [facility] Osmolality Calculated 279 270 - 300 mOsm/kg 10/26/2021 3:29 AM [facility] eGFR by CKD-EPI 63(L) >=90 mL/min/1.7 3 m2 10/26/2021 3:29 AM [facility] Blood BLOOD SPECIMEN / Unknown Lab Venipuncture / Unknown 10/26/2021 2:31 AM HOUSE CLEANER 10/26/2021 3:01 AM HOUSE CLEANER Jovon Maloney DO LAB - CHEMISTRY [place] RADHA [facility] [address] [place] [address], [facility] [phone] * XR KNEE LEFT 2VW OR LESS (10/25/2021 12:05 PM HOUSE CLEANER) Only the most recent of2 resultswithin the time period is included. Anatomical Region Laterality Modality Lower Extremity Radiographic Courtney ging 10/25/2021 12:5 9 PM HOUSE CLEANER Impressions 10/25/2021 1:00 PM HOUSE CLEANER IMPRESSION: Internally fixated tibial plateau fracture. This report was electronically signed by TRAMAINE CERON MD on 10/25/2021 1:00 PM . Narrative 10/25/2021 1:00 PM HOUSE CLEANER Exam: XR KNEE LEFT 2VW History: S82.142A: [...] * [place] JAQUELIN SURGERY (10/25/2021 11:36 AM HOUSE CLEANER) Only the most recent of2 resultswithin the time period is included. Narrative [facility] - 10/25/2021 11:37 AM HOUSE CLEANER Fluoroscopy was used for this exam in the OR. Please see the Operative report. Jovon Maloney DO FLUOROSCOPY ORDERABL ES [facility] * ETT LINE PERFORMABLE (10/25/2021 8:26 AM HOUSE CLEANER) Narrative Veto Guzman DO - 10/25/2021 8:26 AM HOUSE CLEANER Veto Guzman DO 10/25/2021 8:28 AM Endotracheal Tube Placement: Patient Location: OR. Procedure: intubation (32585). Procedure Section: Sedation: under general anesthesia. Indications [...] TYPE + SCREEN PANEL (10/25/2021 6:42 AM HOUSE CLEANER) Only the most recent of2 resultswithin the time period is included. [facility] Antibody Screen NEG 7:30 AM HOUSE CLEANER [facility] ABO Rh O POS 10/25/2021 7:30 AM HOUSE CLEANER [facility] Blood Bank BLOOD SPECIMEN / Unknown Venipuncture / Unknown 10/25/2021 6:42 AM HOUSE CLEANER 10/25/2021 6:51 AM HOUSE CLEANER Jovon Maloney DO LAB - BLOOD BANK ORD ERABLES [facility] [address] [place] [address], [facility] [phone] * SARS-COV-2 (COVID-19) INTERNAL (10/12/2021 3:49 PM HOUSE CLEANER) [facility] COVID-19 PCR Not detected Not detected 10/13/2021 6:11 AM HOUSE CLEANER [facility] Microbiology SPECIMEN FROM NASOPHARYNGEAL STRUCTURE / Unknown Collection / Unknown 10/12/2021 3:49 PM HOUSE CLEANER 10/12/2021 4:54 PM HOUSE CLEANER Narrative [facility] - 10/13/2021 6:11 AM HOUSE CLEANER This nucleic acid amplification assay performance was validated by [facility]. This test has been authorized [...] Maloney DO LAB - MICROBIOLOGY O RDERABLES [facility] MICRO[facility]OLOG[facility] [address] [place] [address], [facility] [phone] * ETT LINE PERFORMABLE (10/11/2021 11:52 AM HOUSE CLEANER) Narrative Sloan Salcedo Anes Asst - 10/11/2021 11:52 AM HOUSE CLEANER Sloan Salcedo Anes Asst 10/11/2021 11:53 AM Endotracheal Tube Placement: Patient Location: OR. Intubation Event Date/Time: 10/11/2021 10:59 AM Procedure: intubation (30585). Procedure Section: Sedation: under general anesthesia. Indications [...] KNEE LEFT WO CONTRAST (10/10/2021 9:26 PM HOUSE CLEANER) Anatomical Region Laterality Modality Lower Extremity Computed Tomogra phy 10/10/2021 9:33 PM HOUSE CLEANER Impressions 10/11/2021 9:05 AM HOUSE CLEANER Impression: 1.Comminuted moderately displaced tibial plateau fracture involving the medial and lateral plateau articular surfaces. 2.Comminuted mildly displaced fibular head fracture. Report drafted by Oni Rowe (resident) IDr. TRAMAINE MD have personally reviewed and interpreted this examination/study. This report was electronically signed by TRAMAINE CERON MD on 10/11/2021 9:05 AM . Narrative 10/11/2021 9:05 AM HOUSE CLEANER Procedure Information DATE: 10/10/2021 9:28 PM EXAMINATION: [...] (COVID-19)+INFLU A+B PCR RAPID (10/10/2021 8:35 PM HOUSE CLEANER) COVID-19 PCR Not detected Not detected 10/10/20 9:01 PM [facility] Influenza A Rapid GABRIELA Not Detected Not Detected 10/10/2021 9:01 PM [facility] Influenza B GABRIELA Rapid Not Detected Not Detected 10/10/2021 9:01 PM [facility] Microbiology SPECIMEN FROM NASOPHARYNGEAL STRUCTURE / Unknown Collection / Unknown 10/10/2021 8:35 PM HOUSE CLEANER 10/10/2021 8:39 PM HOUSE CLEANER [facility] - 10/10/2021 9:01 PM HOUSE CLEANER Influenza assay performed by [employer]. [...] acid amplification assay performance was validated by [facility]. This test has been authorized by [...] Maloney DO LAB - MICROBIOLOGY O RDERABLES [address] [address], [facility] [phone] * XR STRESS ANY JOINT (10/10/2021 8:31 PM HOUSE CLEANER) Anatomical Region Laterality Modality Lower Extremity, Upper Extremity Radiographic Imaging 10/11/2021 10:1 6 AM HOUSE CLEANER Impressions 10/11/2021 10:19 AM HOUSE CLEANER IMPRESSION: No change in alignment of the osseous structures of the ankle status post stress. Report dictated by Ramon Burns DO (vice president process) IDr. KIMI MD, FRCR have personally reviewed and interpreted this examination/study. This report was electronically signed by KIMI TELLO MD, FRCR on 10/11/2021 10:19 AM . Narrative 10/11/2021 10:19 AM HOUSE CLEANER EXAMINATION: XR STRESS ANY JOINT HISTORY: W11.XXXA: [...] stress. Report dictated by Ramon Burns DO (vice president process) Dr. KIMI Mosley MD, FRCR have personally reviewedand interpreted this examination/study. This report was electronically signed by KIMI TELLO MD, FRROSALBA on 10/11/2021 10:19 AM . Lilliam Agurire MD DIAGNOSTIC IMAGING O RDERABLES * XR FEMUR LEFT 2VW (10/10/2021 8:31 PM HOUSE CLEANER) Anatomical Region Laterality Modality Lower Extremity Radiographic Courtney ging 10/11/2021 10:1 0 AM HOUSE CLEANER Impressions 10/11/2021 10:26 AM HOUSE CLEANER IMPRESSION: 1.No acute osseous abnormality of the femur. 2.Redemonstrated lateral tibial condyle are fracture and proximal fibular fracture with large joint effusion. Report dictated by Ramon Burns DO (vice president process). Dr. KIMI Mosley MD, FRCR have personally reviewed and interpreted this examination/study. This report was electronically signed by KIMI TELLO MD, FRROSALBA on 10/11/2021 10:26 AM . Narrative 10/11/2021 10:26 AM HOUSE CLEANER EXAMINATION: XR FEMUR LEFT 2VW HISTORY: W11.XXXA: [...] effusion. Report dictated by Ramon Burns DO (vice president process). Dr. KIMI Mosley MD, FRCR have personally reviewedand interpreted this examination/study. This report was electronically signed by KIMI TELLO MD, FRCR on 10/11/2021 10:26 AM . Lilliam Aguirre MD DIAGNOSTIC IMAGING O RDERABLES * XR PELVIS 1 OR 2VW (10/10/2021 7:59 PM HOUSE CLEANER) Anatomical Region Laterality Modality Pelvis Radiographic Courtney ging 10/11/2021 10:0 4 AM HOUSE CLEANER Impressions 10/11/2021 10:52 AM HOUSE CLEANER IMPRESSION: No acute fracture identified. Report dictated by Ramon Burns DO (vice president process). Dr. KIMI Mosley MD, FRCR have personally reviewed and interpreted this examination/study. This report was electronically signed by KIMI TELLO MD, FRROSALBA on 10/11/2021 10:52 AM . Narrative 10/11/2021 10:52 AM HOUSE CLEANER EXAMINATION: XR PELVIS 1 OR 2VW HISTORY: [...] identified. Report dictated by Ramon Burns DO (vice president process). I, Dr. KIMI TELLO MD, FRCR have personally reviewedand interpreted this examination/study. This report was electronically signed by KIMI TELLO MD, FRCR on 10/11/2021 10:52 AM . Lilliam Aguirre MD DIAGNOSTIC IMAGING O RDERABLES * BLOOD TYPE VERIFICATION (10/10/2021 7:08 PM HOUSE CLEANER) ABO Rh O POS 10/10/2021 8:0 2 PM HOUSE CLEANER [facility] Blood Bank BLOOD SPECIMEN / Unknown Lab Venipuncture / Unknown 10/10/2021 7:08 PM HOUSE CLEANER 10/10/2021 7:11 PM HOUSE CLEANER Lilliam Aguirre MD LAB - BLOOD BANK ORD ERABLES [facility] [address] [place] [address], [facility] [phone] * XR HIP 2+ VW LEFT (10/10/2021 6:55 PM HOUSE CLEANER) Anatomical Region Laterality Modality Pelvis, Lower Extremity Radiogra phic Imaging 10/10/2021 7:17 PM HOUSE CLEANER Impressions 10/11/2021 8:48 AM HOUSE CLEANER IMPRESSION: 1.Fracture of the tibial condyles with involvement of the lateral tibial plateau and in the condylar eminence. There is depression of the lateral tibial plateau (approximately 9 mm). 2.Widening of lateral aspect of ankle joint is noted without definite fractures. Dictated by Andre Aguilar DO (vice president process). I, Dr. KIMI TELLO MD, [facility] have personally reviewed and interpreted this examination/study. This report was electronically signed by KIMI TELLO MD, FRCR on 10/11/2021 8:48 AM . Narrative 10/11/2021 8:48 AM HOUSE CLEANER EXAMINATION: XR ANKLE LEFT 3VW OR MORE, [...] MORE, XR KNEE LEFT 3VW, XR HIP [id number] OR MORE, XR TIBIA FIBULA LEFT 2VW [...] definite fractures. Dictated by Andre Aguilar DO (vice president process). Dr. KIMI Mosley MD, [facility] have personally reviewedand interpreted this examination/study. This report was electronically signed by KIMI TELLO MD, FR on 10/11/2021 8:48 AM . Lilliam Aguirre MD DIAGNOSTIC IMAGING O RDERABLES * XR ANKLE 3+ VW LEFT (10/10/2021 6:55 PM HOUSE CLEANER) Anatomical Region Laterality Modality Lower Extremity Radiographic Courtney ging 10/10/2021 7:17 PM HOUSE CLEANER Impressions 10/11/2021 8:48 AM HOUSE CLEANER IMPRESSION: 1.Fracture of the tibial condyles with involvement of the lateral tibial plateau and in the condylar eminence. There is depression of the lateral tibial plateau (approximately 9 mm). 2.Widening of lateral aspect of ankle joint is noted without definite fractures. Dictated by Andre Aguilar DO (vice president process). Dr. KIMI MosleyVIL, MD, FRROSALBA have personally reviewed and interpreted this examination/study. This report was electronically signed by KIMI TELLO MD, FRROSALBA on 10/11/2021 8:48 AM . Narrative 10/11/2021 8:48 AM HOUSE CLEANER EXAMINATION: XR ANKLE LEFT 3VW OR MORE, [...] MORE, XR KNEE LEFT 3VW, XR HIP [id number] OR MORE, XR TIBIA FIBULA LEFT 2VW [...] definite fractures. Dictated by Andre Aguilar DO (vice president process). Dr. KIMI Mosley MD, FRROSALBA have personally reviewedand interpreted this examination/study. This report was electronically signed by KIMI TELLO MD, FRCR on 10/11/2021 8:48 AM . Lilliam Aguirre MD DIAGNOSTIC IMAGING O RDERABLES * XR TIBIA FIBULA LEFT 2VW (10/10/2021 6:54 PM HOUSE CLEANER) Anatomical Region Laterality Modality Lower Extremity Radiographic Courtney ging 10/10/2021 7:17 PM HOUSE CLEANER Impressions 10/11/2021 8:48 AM HOUSE CLEANER IMPRESSION: 1.Fracture of the tibial condyles with involvement of the lateral tibial plateau and in the condylar eminence. There is depression of the lateral tibial plateau (approximately 9 mm). 2.Widening of lateral aspect of ankle joint is noted without definite fractures. Dictated by Andre Aguilar DO (vice president process). Dr. KIMI Mosley MD, FRROSALBA have personally reviewed and interpreted this examination/study. This report was electronically signed by KIMI TELLO MD, FRCR on 10/11/2021 8:48 AM . Narrative 10/11/2021 8:48 AM HOUSE CLEANER EXAMINATION: XR ANKLE LEFT 3VW OR MORE, [...] MORE, XR KNEE LEFT 3VW, XR HIP [id number] OR MORE, XR TIBIA FIBULA LEFT 2VW [...] definite fractures. Dictated by Andre Aguilar DO (vice president process). I, Dr. KIMI TELLO MD, [facility] have personally reviewedand interpreted this examination/study. This report was electronically signed by KIMI TELLO MD, FRCR on 10/11/2021 8:48 AM . Lilliam Aguirre MD DIAGNOSTIC IMAGING O RDERABLES * PT-INR [facility] (10/10/2021 6:49 PM HOUSE CLEANER) PT 12.1 12.1 - 14.8 Seconds 10/10/2021 7:38 PM [facility] INR 0.9 See Comment 10/10/2021 7:38 PM [facility] Comment:The suggested therap eutic range for standard coumadin (warfarin) therapy is an INR of 2.0-3.0. For high-risk patients (Mechanical Mitral Valve Prosthesis, etc.), the suggested prophylactic therapeutic range is an INR of 2.5-3.5. Blood BLOOD SPECIMEN / Unknown Venipuncture / Unknown 10/10/2021 6:49 PM HOUSE CLEANER 10/10/2021 7:28 PM HOUSE CLEANER Lilliam Aguirre MD LAB - COAGULATION OR DERABLES [facility] [address] [place] [phone], [facility] [phone] * (ABNORMAL) CBC W AUTO DIFFERENTIAL (10/10/2021 6:48 PM HOUSE CLEANER) WBC 9.8 3.5 - 10.5 10 3/uL 10/10/2021 7:11 PM HOUSE CLEANER [facility] RBC 4.02 3.80 - 5.20 10 6/uL 10/10/2021 7:11 PM [facility] Hemoglobin 11.9(L) 12.0 - 15.6 g/dL 10/10/2021 7:11 PM [facility] Hematocrit 37.4 35.0 - 45.0 % 10/10/2021 7:11 PM [facility] MCV 93.0 80.7 - 98.3 fL 10/10/2021 7:11 PM [facility] MCH 29.6 26.7 - 34.0 pg 10/10/2021 7:11 PM [facility] MCHC 31.8 30.8 - 35.9 g/dL 10/10/2021 7:11 PM [facility] Platelet Count 294 150 - 400 10 3/uL 10/10/2021 7:11 PM [facility] RDW-SD 46.0 36.0 - 50.0 fL 10/10/2021 7:11 PM [facility] RDW-CV 13.4 11.2 - 14.8 % 10/10/2021 7:11 PM [facility] MPV 9.9 9.4 - 12.9 fL 10/10/2021 7:11 PM [facility] nRBC Absolute 0.00 0 10 3/uL 10/10/2021 7:11 PM [facility] nRBC Auto 0.0 0 /100 WBC 10/10/2021 7:11 PM [facility] Neutrophils % 66.2 35.0 - 70.0 % 10/10/2021 7:11 PM [facility] Lymphocytes % 21.3 20.0 - 43.0 % 10/10/2021 7:11 PM [facility] Monocytes % 10.2 5.0 - 13.0 % 10/10/2021 7:11 PM [facility] Eosinophils % 1.7 0.0 - 6.0 % 10/10/2021 7:11 PM [facility] Basophil % 0.3 0.0 - 2.0 % 10/10/2021 7:11 PM [facility] Neutrophils Absolute 6.5 1.6 - 7.0 10 3/uL 10/10/2021 7:11 PM [facility] Lymphocyte Absolute 2.1 1.1 - 3.9 10 3/uL 10/10/2021 7:11 PM [facility] Monocytes Absolute 1.00 0.26 - 1.07 10 3/uL 10/10/2021 7:11 PM [facility] Eosinophils Absolute 0.17 0.00 - 0.47 10 3/uL 10/10/2021 7:11 PM [facility] Basophils Absolute 0.03 0.00 - 0.08 10 3/uL 10/10/2021 7:11 PM [facility] Immature Granulocytes % 0.3 0.0 - 1.0 % 10/10/2021 7:11 PM [facility] Immature Granulocytes Absolute 0.03 10/10/2021 7:11 PM [facility] Blood BLOOD SPECIMEN / Unknown Venipuncture / Unknown 10/10/2021 6:48 PM HOUSE CLEANER 10/10/2021 7:01 PM HOUSE CLEANER Lilliam Aguirre MD LAB - HEMATOLOGY ORD ERABLES Performing Organization Address [facility] Co de Phone Number [address] [address] [phone] * (ABNORMAL) COMPREHENSIVE METABOLIC PANEL (10/10/2021 6:48 PM HOUSE CLEANER) BUN 19 7 - 26 mg/dL 10/10/2021 7:25 PM [facility] Creatinine 1.18(H) 0.56 - 0.96 mg/dL 10/10/2021 7:25 PM [facility] Sodium 142 136 - 145 mmol/L 10/10/2021 7:25 PM [facility] Potassium 3.7 3.5 - 4.5 mmol/L 10/10/2021 7:25 PM [facility] Chloride 106 98 - 107 mmol/L 10/10/2021 7:25 PM [facility] CO2 22 22 - 29 mmol/L 10/10/2021 7:25 PM [facility] Glucose 99 70 - 115 mg/dL 10/10/2021 7:25 PM [facility] Calcium 9.9 8.4 - 10.2 mg/dL 10/10/2021 7:25 PM [facility] Protein Total 6.8 6.0 - 8.3 g/dL 10/10/2021 7:25 PM [facility] Albumin 3.6 3.4 - 5.0 g/dL 10/10/2021 7:25 PM [facility] Bilirubin Total 0.2 0.2 - 1.2 mg/dL 10/10/2021 7:25 PM [facility] Alkaline Phosphatase 93 40 - 150 U/L 10/10/2021 7:25 PM [facility] ALT 24 5 - 55 U/L 10/10/2021 7:25 PM [facility] AST 30 5 - 34 U/L 10/10/2021 7:25 PM [facility] Anion Gap 18 8 - 18 10/10/2021 7:25 PM [facility] BUN/Creatinine Ratio 16 7 - 23 10/10/2021 7:25 PM [facility] Osmolality Calculated 296 270 - 300 mOsm/kg 10/10/2021 7:25 PM [facility] Albumin/Globulin Ratio 1.1 1.1 - 2.3 10/10/2021 7:25 PM [facility] eGFR by CKD-EPI 48(L) >=90 mL/min/1.7 3 m2 10/10/2021 7:25 PM [facility] Blood BLOOD SPECIMEN / Unknown Venipuncture / Unknown 10/10/2021 6:48 PM HOUSE CLEANER 10/10/2021 7:01 PM HOUSE CLEANER Lilliam Aguirre MD LAB - CHEMISTRY JOCELYNN GARCIA [facility] Organization Address City/State/[facility] Co de Phone Number [address] [address], [facility] [phone] * CULTURE MRSA (09/25/2014 9:07 AM HOUSE CLEANER) Culture MRSA Screen No Growth of Methicillin Resistant Staphylococcus aureus. [facility] Nasopharyngeal 09/25/2014 9: 07 AM HOUSE CLEANER 09/25/2014 3:16 PM HOUSE CLEANER Narrative [facility] - 09/26/2014 11:18 AM HOUSE CLEANER AshokSpecimen#[id number] Ashok Loc/Rm/Bed: OP SGPREOP// Historical Provider LAB - MICROBIOLOG Y ORDERABLES [facility] [address] [phone] Care Teams Exhaust And Muffler Fitter Relationship Specialty Start Date End Date Edy Aviles DO [address] [place] [address] PCP - General 06/17/22
--- OUTSIDE RECORDS SUMMARY | 2025-01-04 14:00 | XMS_ITS | Clinical Summary ---
Author Organization [facility] Address [address] [place] [address] Care Team Providers Care News Specialist Name Role Phone Zafar Reddy MD Primary Care Provider [phone] Allergies Active Allergy Reactions Criticality Noted Date [...] (11/12/2022): Added automatically from request for surgery [id number] Social History Tobacco Use Types Packs/Day Years [...] age to complete this topic [facility] Care Teams News Specialist Relationship Specialty Start Date End Date Zafar Reddy MD [address] [place] [address] PCP - General 05/10/12
--- OUTSIDE RECORDS SUMMARY | 2025-01-04 14:00 | XMS_ITS | Encounter Summary ---
Author Organization [facility] Health Address [address] [place] [address] Care Team Providers Care Board Mixer Tender Name Role Phone Edy Aviles DO Primary Care Provider [phone] Encounter Details Date Type Department Care Team (Late st Contact Info) Description 02/24/2024 Lab Requisition [facility] - DermPath Lab [address] [facility], [place] [phone] Israel Lang [place] [address] Social History Tobacco Use Types Packs/Day Years [...] AM CDT) Case Report Dermatopathology Report Case: [id number] Authorizing Provider: Israel Lang MD Collected: 02/23/2024 12:00 AM Ordering Location: [facility] - Received: 02/25/2024 [...] five pieces in aggregate shave biopsy measuring 43b79l1 mm. Jar 0. 1:41 PM T DERMATOPATHOLOGY [...] characteristic determined by the Dermatopathology Laboratory at [facility], directed by Dr. Yessi Jackman. These tests need not be, and therefore are not, approved by the [place] Food and Drug Administration. The tests are used for clinical purposes. Billing Codes Specimen Charges Stain Charges 01112 [id number] 1 1 1 1:41 PM CDT DERMATOPATHOLOGY [...] LAB - PATHOLOGY/CYTO LOGY ORDERABLES DERMATOPATHOLOGY LABORATORY [facility] - Department of Dermatology [facility] Specialized Medicine [address] [place] [address], [address] [phone] documented in this encounter Visit Diagnoses Not on filedocumented in this encounter Care Teams Board Mixer Tender Relationship Specialty Start Date End Date Edy Aviles DO [address] [place], [place] [id number] PCP - General 06/17/22 documented as of this encounter
--- OUTSIDE RECORDS SUMMARY | 2025-01-04 14:00 | XMS_ITS | Referral Summary ---
Author Organization [facility] [address] [place] [address] 162 [address] [place] [address] Care Team Providers Care Patient Assessment Coordinator Name Role Phone Per Samson MD Primary Care Provider [phone] Coretta Childers MD Unavailable [phone] Tima Henson MD Unavailable [phone] Encounters Date Type Department Care Team Description 12/26/2024 7:45 AM CHARTERED FINANCIAL ANALYST Ancillary Procedure [facility] Card[facility] [address] [place] [address] [place] [phone] Syncope and collapse (Primary Dx); NICM (nonischemic cardiomyopathy) (CMS/HCC) (HCC); NSVT (nonsustained ventricular tachycardia) (HCC); RVOT ventricular tachycardia (HCC); Paroxysmal supraventricular tachycardia (HCC); Status post placement of implantable loop recorder 11/25/2024 Telephone [facility] [address] [facility] [address] [place] [address] Jessica Shoemaker NP 11/18/2024 Orders Only [facility] [address] [place] [address] [place] [phone] Vy Pierce MD Status post placement of implantable loop recorder (Primary Dx); Paroxysmal supraventricular tachycardia (HCC); History of radiofrequency ablation (RFA) procedure for cardiac arrhythmia; Syncope and collapse; RVOT ventricular tachycardia (HCC) 11/14/2024 9:15 AM CHARTERED FINANCIAL ANALYST Ancillary Procedure [facility] [address] [place] [address] [place] [phone] Status post placement of implantable loop recorder (Primary Dx); NICM (nonischemic cardiomyopathy) (CMS/HCC) (HCC); NSVT (nonsustained ventricular tachycardia) (HCC) 10/28/2024 Telephone [facility] [address] [place] [phone] Jessica Shoemaker NP 10/27/2024 1:00 PM CHARTERED FINANCIAL ANALYST Ancillary Procedure [facility] [address] [place] [phone] Syncope and collapse (Primary Dx); NICM (nonischemic cardiomyopathy) (CMS/HCC) (HCC); NSVT (nonsustained ventricular tachycardia) (HCC); Status post placement of implantable loop recorder; RVOT ventricular tachycardia (HCC); Paroxysmal supraventricular tachycardia (HCC) 10/27/2024 Orders Only [facility] [address] [place] [address] [place] [phone] Jessica Shoemaker NP Dizziness of unknown etiology 10/26/2024 Telephone [place] [address] [place] [phone] Vy Pierce MD 10/19/2024 Orders Only [facility] Health Information Management [address] [place] [address] Jessica Shoemaker NP 10/10/2024 Telephone [facility] [address] [place] [address] [address] [place] [phone] Jessica Shoemaker NP Dizziness from Last [...] mouth 2 (two) times a day Active wzzjwplb-qht-BN-ly copen-lutein 0.4-300-250 mg-mcg-mcg tabletIndications: Vitamin Deficiency Prevention [...] 08/28/2023 Assessment & Plan (09/21/2023 9:12 AM CHARTERED FINANCIAL ANALYST): She is doing pretty well. Feels like [...] and proceed with this. Sinus node dysfunction ([facility]/HCC) 06/08/2023 Morbid (severe) obesity due to excess calories 0 06/01/2023 Body mass index 40.0-44.9, adult (CMS/HCC) 06/01 Sleep-disordered breathing 09/07/2022 Status post placement of implantable loop record er 03/07/2022 Overview (03/07/2022): Netatmoroni1001 Menus Bio-monitor III Loop Recorder. Dx; Syncope, PSVT, AT, RVOT VT s/p ablation. DOI 03/05/2022-[facility]. Netatmoronik remote monitoring. Dizziness 08/19/2021 Lower extremity edema [...] (10/26/2020): Added automatically from request for surgery [id number] Migraine 08/10/2020 Assessment & Plan (08/10/2020 2:22 [...] neuralgia. 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 Assessment & Plan (10/02/2020 1:29 PM CHARTERED FINANCIAL ANALYST): Ms. Palma continues to do well clinically after posterior lumbar decompression fusion at L4-5. She has good alignment. There is no lucency around the hardware. We will continue to follow this over time. Assessment & Plan (11/30/2019 1:51 PM CHARTERED FINANCIAL ANALYST): Ms. Palma reports persistent numbness in her [...] (05/20/2019): Added automatically from request for surgery [id number] Assessment & Plan (01/22/2023 12:27 PM CDT): [...] physician. Assessment & Plan (01/08/2021 12:53 PM CHARTERED FINANCIAL ANALYST): Ms. Palma does not have pain referable [...] time. Assessment & Plan (10/02/2020 1:29 PM CHARTERED FINANCIAL ANALYST): Ms. Palma was improved after cervical decompression [...] hour to stretch. FOLLOW UP APPT: With SALES AND SERVICE ADVISOR in 4 weeks with AP/LAT Cervical spine films. Assessment & Plan (11/24/2018 11:40 AM CHARTERED FINANCIAL ANALYST): Patient has new onset symptoms of her [...] patient to schedule on her own at [facility]. We will await the CD to be mailed to our office for Dr. Palmer to review and provide further recommendations. She is to continue the same activity restrictions as outlined prior to surgery. Neuropathic pain 11/24/2018 Assessment & Plan (11/24/2018 11:42 AM CHARTERED FINANCIAL ANALYST): For her neuropathic pain and would have [...] (12/16/2018): Added automatically from request for surgery [id number] Cervical spinal stenosis 09/27/2018 Overview (09/27/2018): Added automatically from request for surgery [id number] HNP (herniated nucleus pulposus), lumbar 07/13/2018 03/02/2019 Overview (07/13/2018): Added automatically from request for surgery [id number] Immunizations Immunization Administration Dates Next Due Pfizer [...] on file Legal Sex Female 11:06 AM CHARTERED FINANCIAL ANALYST Gender Identity Not on file Sexual Orientation Not on file Last Filed Vital Signs Vital Sign Reading Time Taken Comments Blood Pressure 112/64 09/26/2024 8:40 AM CHARTERED FINANCIAL ANALYST Pulse 105 09/26/2024 8:40 AM CHARTERED FINANCIAL ANALYST Temperature 36.4 C (97.5 F) 09/07/2023 10:05 AM CDT Respiratory Rate 18 09/15/2023 9:25 AM CHARTERED FINANCIAL ANALYST Oxygen Saturation 97% 09/26/2024 8:40 AM CHARTERED FINANCIAL ANALYST Inhaled Oxygen Concentration - - Weight 77.1 kg (170 lb) 09/26/2024 8:40 AM CHARTERED FINANCIAL ANALYST Height 154.9 cm (5' 1 ) 09/26/2024 8:40 AM CHARTERED FINANCIAL ANALYST Body Mass Index 32.12 09/26/2024 8:40 AM CHARTERED FINANCIAL ANALYST Plan of Treatment Not on file Medical Devices Implanted Type Area Oxidation Operator Device Identifier Shelf Expiration Date Model / Serial / Lot Loop Recorder [id number] Menus Biomonitor Iii-Left Upper Chest Chest Knee Arthroplasty Right: Knee Left Lower Leg Hardware From Fracture Left: Leg [employer] Inc Os-201 Hemasorb Spatula Wax 2gm Bone Sterile - [id number] Implanted:Qty: 1 on 10/15/2018 by Elvin Palmer MD at [facility] N/A: Spine Cervical [employer] Inc 10/08/2020 OS-201 / / [id number] C[employer] 3d Cervical 14.0r67d2mh 7 Deg - [id number] Implanted:Qty: 1 on 10/15/2018 by Elvin Palmer MD at [facility] N/A: Spine Cervical Core Link [id number] 12/02/2022 [id number] / / [id number] Core Link Anodyne 12mm Level 1 Spine Cervical Anterior Plate Bone - [id number] Implanted:Qty: 1 on 10/15/2018 by Elvin Palmer MD at [facility] N/A: Spine Cervical Core Link / / Core Link Anodyne 4mm 14mm Variable Angle Self Tap Spine Cervical Screw - [id number] Implanted:Qty: 4 on 10/15/2018 by Elvin Palmer MD at [facility] N/A: Spine Cervical Core Link / / Screw Bone Biased Angle L14 Mm Od3.5 Mm Cephelad Caudal Nonsterile Posterior Occipital Cervical Thoracic System 3500 Series - [id number] Implanted:Qty: 4 on 01/20/2019 by Elvin Palmer MD at [facility] N/A: Spine Cervical Core Link [id number] / / Screw Set Spinal 3500 Series - [id number] Implanted:Qty: 4 on 01/20/2019 by Elvin Palmer MD at [facility] N/A: Spine Cervical Core Link [id number] / / Core Link [id number] Tomales 3.5mm 50mm Line Prebent Jin Spinal Nonsterile 3500 Series - [id number] Implanted:Qty: 1 on 01/20/2019 by Elvin Palmer MD at [facility] N/A: Spine Cervical Core Link [id number] / / Core Link 30631-68 Tomales Screw Set 5500 Series - Sna - [id number] Implanted:Qty: 4 on 06/20/2019 by Elvin Palmer MD at [facility] N/A: Back Core Link 42610-65 / NA / Core Link [id number] Tomales 5.5mm 35mm Line Prebent Jin Spinal Nonsterile 5500 Series - Sns - [id number] Implanted:Qty: 2 on 06/20/2019 by Elvin Palmer MD at [facility] N/A: Back Core Link [id number] / NS / [employer] Llc [id number] Inqu Paste Mix Plus Cutter Operator Asbestos Shingle 10cc Bone Graft Hyaluronic Acid Poly - Sna - [id number] Implanted:Qty: 1 on 06/20/2019 by Elvin Palmer MD at [facility] N/A: Back Weft Ii Llc [id number] 01/19/2021 [id number] / NA / [id number] Core Link 67066-66 Tomales 6.5mm 40mm Spine Pedicle Screw Bone 5500 Series - Sna - [id number] Implanted:Qty: 4 on 06/20/2019 by Elvin Palmer MD at [facility] N/A: Back Core Link 27188-04 / NA / Cerapedics Inc 700-025 I Factor Allograft Putty Syringe Graft 2.5cc Bone - [id number] Implanted:Qty: 1 on 11/26/2020 by Elvin Palmer MD at [facility] N/A: Spine Cervical [employer] Inc 09/08/2023 700-025 / / [id number] Cage [employer] 3d Cervical 14.0h44x9kr 7 Deg - [id number] Implanted:Qty: 1 on 11/26/2020 by Elvin Palmer MD at [facility] N/A: Spine Cervical Core Link 10/25/2024 [id number] / / [id number] Core Link Anodyne 12mm Level 1 Spine Cervical Anterior Plate Bone - [id number] Implanted:Qty: 1 on 11/26/2020 by Elvin Palmer MD at [facility] N/A: Spine Cervical Core Link / / Core Link Anodyne 4mm 14mm Variable Angle Self Tap Spine Cervical Screw - [id number] Implanted:Qty: 4 on 11/26/2020 by Elvin Palmer MD at [facility] N/A: Spine Cervical Core Link / / Procedures Procedure Name Priority Date/Time Associated Diagnosis Comments DEVICE CHECK - REMOTE Routine 12/26/2024 9:15 AM CHARTERED FINANCIAL ANALYST NICM (nonischemic cardiomyopathy) (CMS/HCC) (HCC) NSVT (nonsustained ventricular tachycardia) (HCC) DEVICE CHECK - REMOTE Routine 11/18/2024 12:03 PM CHARTERED FINANCIAL ANALYST NICM (nonischemic cardiomyopathy) (CMS/HCC) (HCC) NSVT (nonsustained ventricular tachycardia) (HCC) DEVICE CHECK - REMOTE Routine 10/27/2024 6:13 PM CHARTERED FINANCIAL ANALYST NICM (nonischemic cardiomyopathy) (CMS/HCC) (HCC) NSVT (nonsustained ventricular tachycardia) (HCC) SCAN - RADIOLOGY/IMAGING 10/19/2024 HEPATITIS C ANTIBODY STAT 10/15/2018 11:20 AM CHARTERED FINANCIAL ANALYST from Last 3 Months or Most Recently Relevant to Health Maintenance Results * DEVICE CHECK - REMOTE (12/26/2024 9:15 AM CHARTERED FINANCIAL ANALYST) Anatomical Region Laterality Modality Other Narrative 12/29/2024 1:37 PM CHARTERED FINANCIAL ANALYST Scancell Bio-monitor III Loop Recorder. Dx; Syncope, PSVT, AT, RVOT VT s/p ablation. DOI 03/05/2022-[facility]. Netatmoronik remote monitoring. Routine ILR remote. Normal device [...] BioTronik remote f/u 02/06/2025. Shelley Looney RN [facility] Chelly Pierce MD [facility] CARDIAC SERVICES PRO CEDURES Final Result * DEVICE CHECK - REMOTE (11/18/2024 12:03 PM CHARTERED FINANCIAL ANALYST) Anatomical Region Laterality Modality Other Narrative 12/08/2024 3:50 PM CHARTERED FINANCIAL ANALYST Biotronik lllm implanted on March 05, 2022 [...] Continue to monitor remotely. Bandar Jordan Device Toy Painter [facility] Chelly Pierce MD CV CARDIAC SERVICES PRO CEDURES Final Result * DEVICE CHECK - REMOTE (10/27/2024 6:13 PM CHARTERED FINANCIAL ANALYST) Anatomical Region Laterality Modality Other Narrative 10/28/2024 8:21 AM CHARTERED FINANCIAL ANALYST Scancell Bio-monitor III Loop Recorder. Dx; Syncope, PSVT, AT, RVOT VT s/p ablation. DOI 03/05/2022-[facility]. Netatmoronik remote monitoring. Unscheduled ILR remote due to [...] Region Laterality Modality Other us Jessica Shoemaker SALES AND SERVICE ADVISOR Final Res ult * Hepatitis C antibody (10/15/2018 11:20 AM CHARTERED FINANCIAL ANALYST) Hep C Ab Non-Reactiv e Non-Reactiv e [facility] Blood specimen (specimen) 10/15/2018 11:20 AM CHARTERED FINANCIAL ANALYST 10/15/2018 11:41 AM CHARTERED FINANCIAL ANALYST Narrative [facility] - 10/15/2018 12:25 PM CHARTERED FINANCIAL ANALYST us Notinfile Unknown LAB MICROBIOLOGY - GENERAL ORD ERABLES Final Result [facility] [address] Department [place] [address] from Last 3 Months or Most Recently Relevant to Health Maintenance [place] [address] [employer] MEDICARE A[employer]NA MEDICARE A[employer] SENIOR SUPPLEMENT Advance Directives For more information, please contact: [phone] * Full Code (Latest Code Status on File) Date Activated Date Inactivated Comments 09/07/2023 10:10 AM 09/07/2023 2:44 PM * Full Code Date Activated Date Inactivated Comments 06/20/2019 12:01 PM 06/20/2019 6:34 PM * Full Code Date Activated Date Inactivated Comments 10/15/2018 2:08 PM 10/15/2018 4:39 PM * Full Code Date Activated Date Inactivated Comments 07/16/2018 2:30 PM 07/16/2018 6:36 PM Care Teams Patient Assessment Coordinator Relationship Specialty Start Date End Date Per Samson MD PCP - General Family Practice 06/01/23 Coretta Childers MD Consulting Physician Cardiology 08/28/23 Tima Henson MD [address] [place] [address] Consulting Physician Otolaryngology 08/28/23
--- OUTSIDE RECORDS SUMMARY | 2025-01-04 14:00 | XMS_ITS | Clinical Summary ---
Author Organization [facility] Address [address] [place] [address] Care Team Providers Care Meat Passer Name Role Phone Edy Aviles DO Primary Care Provider [phone] Source Comments [facility],non-owned Affiliates and Associated Physician Practices is amultiple site organization consisting of ambulatory clinics and hospital sitesin [place], [place], [place] and [place]. This disclosure is being madepursuant to the Care Everywhere program and may not contain all information available regarding this patient. Last updated 18.[facility] [employer] Allergies Active Allergy Reactions Criticality Noted Date [...] Immunizations Name Administration Dates Next Due Ian Zuppler primary monoval ent 12+ yr 0.3mL Purple [...] Comments Blood Pressure 148/57 10/26/2021 7:27 AM UROLOGY PHYSICIAN ASSISTANT Pulse 95 10/26/2021 7:27 AM UROLOGY PHYSICIAN ASSISTANT Temperature 36.8 C (98.3 F) 10/26/2021 7:27 AM UROLOGY PHYSICIAN ASSISTANT Respiratory Rate 16 10/25/2021 10:58 PM UROLOGY PHYSICIAN ASSISTANT Oxygen Saturation 100% 10/26/2021 7:27 AM UROLOGY PHYSICIAN ASSISTANT Inhaled Oxygen Concentration 40% 10/25/2021 1 2:10 PM UROLOGY PHYSICIAN ASSISTANT Weight 85.7 kg (189 lb) 07/08/2022 [...] 3-4 weeks. Medical Devices Implanted Type Area Cable Machine Operator Device Identifier Shelf Expiration Date Model / Serial / Lot Pin Hlf 255mm 5mm Jtx Lng Ss 35mm Extfix Implanted:Qty: 2 on 10/11/2021 by Jovon Maloney, DO at [facility] Left: [employer] [id number] / / Pin Hlf 40mm 5mm Jtx Lng Ti Ntrd Extfix Implanted:Qty: 2 on 10/11/2021 by Jovon Maloney, DO at [facility] Left: [employer] [id number] / / Bar Extfix 200mm Jtx Cfbr Nonster Disp Implanted:Qty: 2 on 10/11/2021 by Jovon Maloney, DO at [facility] Left: [employer] [id number] / / Screw 3.5mm 46mm Ft Hex [...] 2 on 10/25/2021 by Jovon Maloney, at [facility] Left: Tibia [employer] [id number] / / Plate 5 Hl Lck Lopro Dist Blt Tip Tib Lt Implanted:Qty: 1 on 10/25/2021 by Jovon Maloney, at [facility] Left: Tibia [employer] [id number] / / Screw 3.5mm 65mm 2.2mm Mldir Lck Sq Drv Implanted:Qty: 1 on 10/25/2021 by Jovon Maloney, at [facility] Left: Tibia [employer] [id number] / / Screw 3.5mm 80mm Sq Drv [...] [facility] Left: Tibia [employer] [id number] / / Screw 3.5mm 34mm Ft Nonlock [...] Biomet [id number] / / Explanted Type Area Cable Machine Operator Device Identifier Shelf Expiration Date Model / Serial / Lot Clamp Extfix Jtx 10.5mm Bar To Bar Mr Buitrago Explanted:Qty: 2 on 10/11/2021 at [facility] Left: [employer] [id number] / / Screw 3.5mm 55mm Ft Slf-Tap Hex Lopro Explanted:Qty: 1 on 10/25/2021 by Jovon Maloney DO at [facility] Left: [employer]ia [employer] [id number] / / Wire K 1.6mm 6in Hlf By Pnt Ss Fx Explanted:Qty: 4 on 10/25/2021 by Jovon Maloney DO at [facility] Left: Tibia [employer] [id number] / / Screw 3.5mm 36mm Ft Slf-Tap Hex Lopro Explanted:Qty: 1 on 10/25/2021 by Jovon Maloney DO at [facility] Left: Tibia [employer] [id number] / / Procedures Procedure Name Priority Date/Time Associated Diagnosis Comments BASIC METABOLIC PANEL (CALCIUM TOTAL) Routine 10/26/2021 2:31 AM UROLOGY PHYSICIAN ASSISTANT Closed fracture of left tibial plateau, initial encounter from Last 3 Months or Most Recently Relevant to Health Maintenance Results * (ABNORMAL) BASIC METABOLIC PANEL (CALCIUM TOTAL) (10/26/2021 2:31 AM UROLOGY PHYSICIAN ASSISTANT) BUN 14 7 - 26 mg/dL 10/26/2021 3:29 AM [facility] Creatinine 0.95 0.56 - 0.96 mg/dL 10/26/2021 3:29 AM [facility] Sodium 134(L) 136 - 145 mmol/L 10/26/2021 3:29 AM [facility] Potassium 4.2 3.5 - 4.5 mmol/L 10/26/2021 3:29 AM [facility] Chloride 102 98 - 107 mmol/L 10/26/2021 3:29 AM [facility] HOSPITAL CO2 25 22 - 29 mmol/L 10/26/2021 3:29 AM [facility] Glucose 106 70 - 115 [...] Lab Venipuncture / Unknown 10/26/2021 2:31 AM UROLOGY PHYSICIAN ASSISTANT 10/26/2021 3:01 AM [facility] Jovon Maloney DO LAB - CHEMISTRY [facility] [address] [place] [address], [facility] [phone] from Last 3 Months or Most Recently Relevant to Health Maintenance Advance Directives * Full Code (Latest Code Status on File) Date Activated Date Inactivated Comments 10/25/2021 1:30 PM 10/26/2021 1:32 PM * Full Code Date Activated Date Inactivated Comments 10/11/2021 12:36 PM 10/15/2021 3:44 PM Care Teams Meat Passer Relationship Specialty Start Date End Date Edy Aviles DO [address] [place], [place] [id number] PCP - General 06/17/22
--- OUTSIDE RECORDS SUMMARY | 2025-01-04 14:00 | XMS_ITS | Encounter Summary ---
Author Organization [facility] Address [address] [facility] [place] [address] Care Team Providers Care Instrument Repairer Helper Name Role Phone Edy Aviles DO Primary Care Provider [phone] Encounter Details Date Type Department Care Team (Late st Contact Info) Description 12/19/2020 Lab Requisition [facility] [address], [facility] [place] [id number] [place] [address] Social History Tobacco Use Types Packs/Day Years [...] Comments DERMATOPATHOLOGY Routine 12/18/2020 12:0 0 AM DIRECTOR OF LAND documented in this encounter Results * DERMATOPATHOLOGY (12/18/2020 12:00 AM DIRECTOR OF LAND) Case Report Dermatopathology Report Case: [id number] Authorizing Provider: Israel Lang MD Collected: 12/18/2020 12:00 AM Ordering Location: [facility] Received: 12/19/2020 11:37 AM Pathologist: Nata Olmos MD Specimen: Skin, left ear superior rim 4:54 PM [facility] Final Diagnosis Specimen A. 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 4:54 PM [facility] Gross Description Specimen A: Received is one formalin filled container labeled with the patient's name and designated left ear superior rim. The specimen consists of a shave biopsy (4 pieces) measuring 5f5x1je, 2j6j0vi, 0z1b7vm, & 7b5i5bp. Jar 0. 4:54 PM DIRECTOR OF LAND DERMATOPATHOLOGY LABORATORY Microscopic Description Specimen A. SKIN, left ear superior rim: There is epidermal hyperplasia overlying dilated blood vessels and fibroplasia. 4:54 PM [facility] DERMAT[facility]ATH[facility]Y [facility]ORATORY Disclaimer An external and internal positive and negative controls are appropriate for the histochemical, immunohistochemical and immunofluorescence stain(s) in this case (if any), except where stated explicitly. The performance characteristics of the stain(s) cited in this report were developed and its performance characteristic determined by the Dermatopathology Laboratory at [facility], directed by Dr. Yessi Jackman. These tests need not be, and therefore are not, approved by the [place] Food and Drug Administration. The tests are used for clinical purposes. Billing Codes Specimen Charges Stain Charges 12942 1 4:54 PM [facility] DERMATOPATH[facility]Y [facility]ATORY Embedded Images 4:54 PM [facility] Pathology/Cytolog y TISSUE SPECIMEN FROM SKIN / Unknown 12/18/2020 12/19/2020 11:37 AM [facility] Israel Lang MD LAB - PATHOLOGY/[facility]TO [facility] DERMATOPATHOLOGY LABORATORY [facility] - Department of Dermatology [address], [address] [phone] documented in this encounter Visit Diagnoses Not on filedocumented in this encounter Care Teams Instrument Repairer Helper Relationship Specialty Start Date End Date Edy Aviles DO [address] [place] [address] PCP - General 06/17/22 documented as of this encounter
--- OUTSIDE RECORDS SUMMARY | 2025-01-04 14:01 | XMS_ITS | Encounter Summary ---
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) 01/04/2025 1:17 PM SENIOR IT BUSINESS ANALYST Scheduled Orders Name Type Priority Associated Diagnoses Orde r Schedule TEMPUS XT DNA AND RNA Lab Routine 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
--- OUTSIDE RECORDS SUMMARY | 2025-01-04 14:01 | XMS_ITS | Encounter Summary ---
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) Procedures AK OFFICE/OUTPATIENT ESTABLISHED MOD MDM 30 MIN AK OFFICE/OUTPATIENT NEW MODERATE MDM 45 MINUTES Reuben Leigh MD [id number] [place] [address] Phone: tel: fax: [place] [phone] Referral ID Status Reason Start Date Expiration Date V isits Requested Visits Authorized [id number] Open STL CTS 01/04/2025 01/04/2026 1 1 GER COSMETICS * Eval and Treat (Routine) - Closed Specialty Diagnoses / Procedures Referred By Contac t Referred To Contact Oncology Diagnoses 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) Procedures AK OFFICE/OUTPATIENT ESTABLISHED MOD MDM 30 MIN AK OFFICE/OUTPATIENT NEW MODERATE MDM 45 MINUTES Basil Ludwig MD [address] [place] [phone] Phone: tel: fax: [place] [phone] Referral ID Status Reason Start Date Expiration Date V isits Requested Visits Authorized [id number] Closed STL CTS 01/04/2025 01/05/2026 1 1 GER COSMETICS Reason for Visit * Reason Comments Establish Care Cancer Encounter Details Date Type Department Care Team (Late st Contact Info) Description 01/04/2025 12:00 PM MANAGER COSMETICS Office Visit [facility] Oncology and Hematology - [place] [address] [facility] [address] [place] [address] Basil Ludwig MD [address] [place] [address] Carcinoma metastatic to bone with unknown [...] on file Legal Sex Female 2:15 PM MANAGER COSMETICS Gender Identity Not on file Sexual Orientation Not on file documented as of this encounter Last Filed Vital Signs Vital Sign Reading Time Taken Comments Blood Pressure 136/80 01/04/2025 11:45 AM MANAGER COSMETICS Pulse 97 01/04/2025 11:41 AM MANAGER COSMETICS Temperature 36.4 C (97.5 F) 01/04/2025 11:41 AM MANAGER COSMETICS Respiratory Rate 15 01/04/2025 11:41 AM MANAGER COSMETICS Oxygen Saturation 92% 01/04/2025 11:41 AM MANAGER COSMETICS Inhaled Oxygen Concentration - - Weight 71.7 kg (158 lb) 01/04/2025 11:41 AM MANAGER COSMETICS Height 154.9 cm (5' 1 ) 01/04/2025 11:41 AM MANAGER COSMETICS Body Mass Index 29.85 01/04/2025 11:41 AM MANAGER COSMETICS documented in this encounter Progress Notes * Basil Ludwig MD - 01/04/2025 12:29 PM CST Hematology-oncology consult Note Requesting Physician Primary Care Physician No primary care provider on file. Problem list There is no problem list on file for this patient. Previous TREATMENT ? Measurable Disease ? Reason for Visit Frannie Palma is a 69 y.o. female who was referred for consultation for metastatic cancer. History of present illness This is a 69-year-old female with history of GERD, atrial tachycardia status post cardiacablation and cardiomyopathy along with history of hypertension and hyperlipidemia was admitted to the hospital due to abdominal discomfort on December 09, 2024. Patient has a history of smoking half pack per day for about 50 years duration. She has no previous history of malignancy. CT scan performed showed multiple bone lesions along with left lung nodule, left hilar and mediastinal lymphadenopathy with multiple liver masses. CT-guided biopsy of the lytic lesion of the right fifth rib was performed on December 09 and came back positive for metastatic carcinoma of unknown primary. She already got place. She is complaining of the right rib cage pain. She also has some intermittent dysphagia. According the patient she had EGD done 3 years ago with dilatation of esophageal stricture. Her colonoscopy was also 3 years ago and that showed colon polyps. She denies any melena hematochezia. Denies any other complaints. Past Medical History Past Medical History: Diagnosis Date Depression Hyperlipidemia Malignant neoplasm (CMS/HCC) Surgical History Past Surgical History: Procedure Laterality Date HX ACL RECONSTRUCTION 2019 HX BACK SURGERY lower back-2017 HX CARDIAC ELECTROPHYSIOLOGY MAPPING AND ABLATION x3 in 2012 HX SECTION 2000 HX FOOT SURGERY Right torn ligament-2015 HX HEMORRHOIDECTOMY 2011,2021 HX KNEE REPLACEMENT, TOTAL Right 2013 HX LEG SURGERY 2020 HX NECK SURGERY C6-7-2020 HX NECK SURGERY buckled neck(went through back of the neck)-2018 HX NECK SURGERY C3-6 (neck through front)-2017 HX NECK SURGERY 1999 HX ORIF FEMUR 2020 HX SALPINGO-OOPHORECTOMY Left 1986 HX SPINAL SURGERY L4&L5-2019 Medications Current Outpatient Medications Medication Sig Dispense Refill bumetanide (BUMEX) 2 mg tablet Take 2 mg by mouth daily. metOLazone (ZAROXOLYN) 2.5 mg tablet Take 2.5 mg by mouth daily. cycloSPORINE (RESTASIS) 0.05 % Drops 1 Drop by See Admin Instructions route 2 times daily. Takes .04mg multivit-min/iron/FA/vit K/lut (CENTRUM SILVER WOMEN ORAL) Take by mouth. calcium carbonate/vitamin D3 (CALTRATE 600 + D ORAL) Take 600 mg by mouth 2 times daily. cholecalciferol, Vitamin D3, 125 mcg (5,000 unit) Capsule Take 5,000 Units by mouth daily. MINERAL OIL ORAL Take by mouth. POLYETHYLENE GLYCOL 3350 ORAL Take by mouth daily. Dissolve in 8 ounces of fluid and drink entire liquid psyllium (METAMUCIL) Packet Take 1 Packet by mouth daily. atorvastatin (LIPITOR) 20 mg tablet Take 20 mg by mouth daily. omeprazole (PriLOSEC) 40 mg Capsule, Delayed Release(E.C.) Take 40 mg by mouth 2 times daily. potassium chloride (K-TAB) 20 mEq Extended Release tablet Take 40 mEq by mouth daily. traMADoL (ULTRAM) 50 mg tablet Take 50 mg by mouth every 8 hours as needed for Pain. No current facility-administered medications for this visit. Allergies Allergies Allergen Reactions Codeine Hives and Nausea and Vomiting Lisinopril Nausea and Vomiting Nausea and abdom pain Nausea and abdom pain Nausea and abdom pain Nausea and abdom pain Nausea and abdom pain Nausea and abdom pain Immunizations: Immunization History Administered Date(s) Administered ([employer])(12 YR UP) COVID-19 VACCINE - EMERGENCY USE AUTHORIZATION, MRNA, [id number](PF) 30 MCG/0.3 MLIM SUSP 02/05/2021, 03/05/2021, 09/08/2021 Family History Family History Problem Relation Name Age of Onset Stroke Father Cancer - Other Mother Heart Disease Mother No Known Problems Sister No Known Problems Child Social History Social History Tobacco Use Smoking status: Never Smokeless tobacco: Never Substance Use Topics Alcohol use: Never Review of Systems Constitutional: Patient did not mention fever; no night sweats; poor appetite with tiredness and fatigue and weight loss NEENT: Patient did not mention headache; no change in vision; no change in hearing; no sore throat;no dysphagia Respiratory: Patient did not mention shortness of breath; no pleuritic chest pain; no cough; no hemoptysis Cardiac: Patient did not mention cardiac-like chest pain; no palpitations; no orthopnea; no PND; noDOE Breasts: Patient did not mention tenderness; no masses GI: Patient did not mention abdominal pain; no nausea; no vomiting; no diarrhea; no hematochezia; no melena, complain of mild dysphagia : Patient did not mention dysuria; no frequency; no hesitancy; no hematuria ADMISSIONS NURSE: Musculosketetal: Patient did not mention bone pain; no arthralgia; no joint swelling; no myalgia; Skin: Patient did not mention pruritis; no rash; no petechiae; no ecchymoses Endocrine: Patient did not mention polydipsia; no polyuria; no unusual weight gain Neuro: Patient did not mention headache; no change in vision; no sensory changes; no muscle weakness; no confusion; no seizures Psych: Patient did not mention anxiety; no depression; Physical Exam Vitals: As per nursing note Constitutional: Well developed, well nourished, no acute distress, non-toxic appearance Teeth and gum. No signs of infection or swelling. Eyes: PERRL, conjunctiva normal HEENT: Atraumatic, external ears normal, nose normal, oropharynx moist, no pharyngeal exudates. no sinus tenderness Neck- normal range of motion, no tenderness, supple Respiratory: No respiratory distress, normal breath sounds, no rales, no wheezing Cardiovascular: Normal rate, normal rhythm, no murmurs, no gallops, no rubs GI: Soft, nondistended, normal bowel sounds, nontender, no splenomegaly, no hepatomegaly, no mass, no rebound, no guarding : No costovertebral angle tenderness Musculoskeletal: No edema, no tenderness, no deformities. Back- no tenderness Integument: Well hydrated, no rash, Digits and nails inspection normal Lymphatic: No lymphadenopathy noted Neurologic: Alert & oriented x 3, CN 2-12 normal, normal motor function, normal sensory function, no focal deficits noted Psychiatric: Speech and behavior appropriate ? labs No results found for this or any previous visit (from the past 24 hours). Pathology ? Imaging & Other Studies Performance Status? ECOG performance status 1 Assessment / Plan: ? Metastatic carcinoma of unknown primary status post right fifth rib lytic lesion core biopsy done on December 12, 2024. Patient had PET scan done on December 29, 2024 that showed left lung nodules, left hilar, mediastinal and right supraclavicular lymphadenopathy with liver masses and bone lesions consistent with metastatic disease. Patient has a history of EGD done 3 years ago with dilatation of esophagus for dysphagia. She is still having some dysphagia. She is also has a history of smoking half pack per day for 50 years duration. She denies any previous history of malignancy including any female cancer. She already has Mediport placed. I am concerned about lung cancer versus possibility of esophageal cancer. I will order [facility] next generation sequencing for XT, SF and tumor origin test. I will also call pathologist to get their input regarding the possible diagnosis. She will be referred for chemotherapy teaching. Patient is scheduled to have repeat EGD on January 17. I would like tosee her back after the repeat EGD in 2 weeks. I will also order baseline labs including CBC, CMP, alpha-fetoprotein, CA 15-3 and CA 19-9. I have answered all the questions to patient and the family satisfaction. Follow-up in 2 weeks. Bone metastasis. She is taking tramadol and is still quite uncomfortable with the right rib cage pain. Will refer to radiation oncology consultation. We will also start Xgeva on a monthly basis. Hyperlipidemia. She is on Lipitor. Thank you very much for allowing me to participate in Franniedenia Hendersons's evaluation and management. Please feel free to contact if I can be of any further assistance in your patient???s care requiringhematology or oncology evaluation. Sincerely, ? ? Basil Ludwig M.D. cell TOBACCO COUNSELING She was counseled to discontinue tobacco/nicotine use. Basil Ludwig MD ,01/04/2025 12:29 PM ? Total time spent 60 minutes, two third of the total time spent counseling patient [id number]. CC:? 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) Expected: 01/04/2025, Expires: 01/04/2026 COMPREHENSIVE METABOLIC PANEL Lab Stat 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) Expected: 01/04/2025, Expires: 01/04/2026 CANCER ANTIGEN 15-3 Lab Routine 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) Expected: 01/04/2025, Expires: 01/04/2026 ALPHA FETOPROTEIN TUMOR MARKER Lab Routine 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) Expected: 01/04/2025, Expires: 01/04/2026 CANCER ANTIGEN 19-9 Lab Routine 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) Expected: 01/04/2025, Expires: 01/04/2026 MISCELLANEOUS LAB TEST Lab Routine 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
--- OUTSIDE RECORDS SUMMARY | 2025-01-04 14:01 | XMS_ITS | Encounter Summary ---
Author Organization [facility] Address [address] [place] [address] Care Team Providers Care Oncology Rep Name Role Phone Zafar Reddy MD Primary Care Provider [phone] Sung Mullen MD Primary Care Provider [phone] Zafar Reddy MD Primary Care Provider [phone] Sung Mullen MD Primary Care Provider [phone] Zafar Reddy MD Primary Care Provider [phone] Sung Mullen MD Primary Care Provider [phone] Edy Aviles DO Primary Care Provider [phone] Per Samson MD Primary Care Provider [phone] Coretta Childers MD Unavailable [phone] Tima Henson MD Unavailable [phone] Encounter Details Date Type Department Care Team (Late st Contact Info) Description 03/13/2017 Orders Only [facility] ProviderKamran MD [address] [place] [address] Social History Tobacco Use Types Packs/Day Years Used Date Smoking Tobacco: Every Day Alcohol Use Standard Drinks/Week Comments No 0 (1 standard drink = 0.6 oz pur e alcohol) Comments Unknown Sex and Gender Information Value Date Recorded Sex Assigned at Not on file 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 Gender Identity Not on file Sexual [...] on filedocumented in this encounter Care Teams Oncology Rep Relationship Specialty Start Date End Date Zafar Reddy MD [address] [place] [address] PCP - General 06/10/12 11/12/20 Sung Mullen MD [address] [place] [address] PCP - General 11/13/20 11/15/20 Zafar Reddy MD [address] [place] [address] PCP - General 11/16/20 11/22/20 Sung Mullen MD [address] [place] [address] PCP - General 11/23/20 11/25/20 Zafar Reddy MD [address] [place] [address] PCP - General 11/26/20 05/20/21 Sung Mullen MD [address] [place] [address] PCP - General Internal Medicine 05/21/21 06/04/22 Edy Aviles DO [address] [place] [address] PCP - General Internal Medicine 06/05/22 05/31/23 Per Samson MD [address] [place] [address] PCP - General Family Practice 06/01/23 Coretta Childers MD [address] [place] [address] Consulting Physician Cardiology 08/28/23 Tima Henson MD [address] [address] Consulting Physician Otolaryngology 08/28/23 documented as of this encounter
--- OUTSIDE RECORDS SUMMARY | 2025-01-04 14:01 | XMS_ITS | Clinical Summary ---
Author Organization [facility] [address] Address [address] [place] [address] Care Team Providers Care Physical Anthropologist Name Role Phone Per Samson MD Primary Care Provider [phone] Coretta Childers MD Unavailable [phone] Tima Henson MD Unavailable [phone] Allergies Active Allergy Reactions Criticality Noted Date [...] mouth 2 (two) times a day Active pqmnsuye-zpw-ZM-ly copen-lutein 0.4-300-250 mg-mcg-mcg tabletIndications: Vitamin Deficiency Prevention [...] 08/28/2023 Assessment & Plan (09/21/2023 9:12 AM FRAME BANDER): She is doing pretty well. Feels like [...] and proceed with this. Sinus node dysfunction ([facility]) 06/08/2023 Morbid (severe) obesity due to excess calories 0 06/01/2023 Body mass index 40.0-44.9, adult ([facility]) 06/01 Sleep-disordered breathing 09/07/2022 Status post placement of implantable loop record er 03/07/2022 Overview (03/07/2022): Siine Bio-monitor III Loop Recorder. Dx; Syncope, PSVT, AT, RVOT VT s/p ablation. DOI 03/05/2022-[facility]. Senceraronik remote monitoring. Dizziness 08/19/2021 Lower extremity edema [...] (10/26/2020): Added automatically from request for surgery [id number] Migraine 08/10/2020 Assessment & Plan (08/10/2020 2:22 [...] neuralgia. 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 Assessment & Plan (10/02/2020 1:29 PM FRAME BANDER): Ms. Palma continues to do well clinically after posterior lumbar decompression fusion at L4-5. She has good alignment. There is no lucency around the hardware. We will continue to follow this over time. Assessment & Plan (11/30/2019 1:51 PM FRAME BANDER): Ms. Palma reports persistent numbness in her [...] (05/20/2019): Added automatically from request for surgery [id number] Assessment & Plan (01/22/2023 12:27 PM CDT): [...] physician. Assessment & Plan (01/08/2021 12:53 PM FRAME BANDER): Ms. Palma does not have pain referable [...] time. Assessment & Plan (10/02/2020 1:29 PM FRAME BANDER): Ms. Palma was improved after cervical decompression [...] hour to stretch. FOLLOW UP APPT: With POLICE MAGISTRATE in 4 weeks with AP/LAT Cervical spine films. Assessment & Plan (11/24/2018 11:40 AM FRAME BANDER): Patient has new onset symptoms of her [...] patient to schedule on her own at [facility] [address]. We will await the CD to be mailed to our office for Dr. Palmer to review and provide further recommendations. She is to continue the same activity restrictions as outlined prior to surgery. Neuropathic pain 11/24/2018 Assessment & Plan (11/24/2018 11:42 AM FRAME BANDER): For her neuropathic pain and would have [...] (12/16/2018): Added automatically from request for surgery [id number] Cervical spinal stenosis 09/27/2018 Overview (09/27/2018): Added automatically from request for surgery [id number] HNP (herniated nucleus pulposus), lumbar 07/13/2018 03/02/2019 Overview (07/13/2018): Added automatically from request for surgery [id number] Encounters Date Type Department Care Team Description 12/26/2024 7:45 AM FRAME BANDER Ancillary Procedure [facility] [address] [place] [address] [place] [phone] Syncope and collapse (Primary Dx); NICM (nonischemic cardiomyopathy) (CMS/HCC) (HCC); NSVT (nonsustained ventricular tachycardia) (HCC); RVOT ventricular tachycardia (HCC); Paroxysmal supraventricular tachycardia (HCC); Status post placement of implantable loop recorder 11/25/2024 Telephone [facility] [address] [place] [phone] Jessica Shoemaker NP 11/18/2024 Orders Only [facility] [address] [place] [address] [place] [phone] Vy Pierce MD Status post placement of implantable loop recorder (Primary Dx); Paroxysmal supraventricular tachycardia (HCC); History of radiofrequency ablation (RFA) procedure for cardiac arrhythmia; Syncope and collapse; RVOT ventricular tachycardia (HCC) 11/14/2024 9:15 AM FRAME BANDER Ancillary Procedure [facility] [address] [place] [address] [place] [phone] Status post placement of implantable loop recorder (Primary Dx); NICM (nonischemic cardiomyopathy) (CMS/HCC) (HCC); NSVT (nonsustained ventricular tachycardia) (HCC) 10/28/2024 Telephone [facility] [address] [place] [phone] Jessica Shoemaker NP 10/27/2024 1:00 PM FRAME BANDER Ancillary Procedure [facility] [address] [place] [address] [place] [phone] Syncope and collapse (Primary Dx); NICM (nonischemic cardiomyopathy) (CMS/HCC) (HCC); NSVT (nonsustained ventricular tachycardia) (HCC); Status post placement of implantable loop recorder; RVOT ventricular tachycardia (HCC); Paroxysmal supraventricular tachycardia (HCC) 10/27/2024 Orders Only [facility] [address] [place] [address] [place] [phone] Jessica Shoemaker NP Dizziness of unknown etiology 10/26/[address] [phone] Vy Pierce MD 10/19/2024 Orders Only [facility] Health Information Management [address] [place] [address] Jessica Shoemaker NP 10/10/2024 Telephone [place] [address] [place] [phone] Jessica Shoemaker NP Dizziness from Last [...] on file Legal Sex Female 11:06 AM FRAME BANDER Gender Identity Not on file Sexual Orientation Not on file Obstetrics History Last Filed Vital Signs Vital Sign Reading Time Taken Comments Blood Pressure 112/64 09/26/2024 8:40 AM FRAME BANDER Pulse 105 09/26/2024 8:40 AM FRAME BANDER Temperature 36.4 C (97.5 F) 09/07/2023 10:05 AM CDT Respiratory Rate 18 09/15/2023 9:25 AM FRAME BANDER Oxygen Saturation 97% 09/26/2024 8:40 AM FRAME BANDER Inhaled Oxygen Concentration - - Weight 77.1 kg (170 lb) 09/26/2024 8:40 AM FRAME BANDER Height 154.9 cm (5' 1 ) 09/26/2024 8:40 AM FRAME BANDER Body Mass Index 32.12 09/26/2024 8:40 AM FRAME BANDER Plan of Treatment Health Maintenance Due Date [...] Completed 01/24/2022 Medical Devices Implanted Type Area Tallow Maker Device Identifier Shelf Expiration Date Model / Serial / Lot Loop Recorder Biotronik Biomonitor Iii-Left Upper Chest Chest Knee Arthroplasty Right: Knee Left Lower Leg Hardware From Fracture Left: Leg Orthocon Inc Os-201 Hemasorb Spatula Wax 2gm Bone Sterile - [id number] Implanted:Qty: 1 on 10/15/2018 by Elvin Palmer MD at [facility] N/A: Spine Cervical Orthocon Inc 10/08/2020 OS-201 / / [id number] Cage Foundation 3d Cervical 14.7w88d4qq 7 Deg - [id number] Implanted:Qty: 1 on 10/15/2018 by Elvin Palmer MD at [facility] N/A: Spine Cervical Core Link [id number] 12/02/2022 [id number] / / [id number] Core Link Anodyne 12mm Level 1 Spine Cervical Anterior Plate Bone - [id number] Implanted:Qty: 1 on 10/15/2018 by Elvin Palmer MD at [facility] N/A: Spine Cervical Core Link / / Core Link [id number] Anodyne 4mm 14mm Variable Angle Self Tap Spine Cervical Screw - [id number] Implanted:Qty: 4 on 10/15/2018 by Elvin Palmer MD at [facility] N/A: Spine Cervical Core Link 24637-80 / / Screw Bone Biased Angle L14 Mm Od3.5 Mm Cephelad Caudal Nonsterile Posterior Occipital Cervical Thoracic System 3500 Series - [id number] Implanted:Qty: 4 on 01/20/2019 by Elvin Palmer MD at [facility] N/A: Spine Cervical Core Link 71978-09 / / Screw Set Spinal 3500 Series - [id number] Implanted:Qty: 4 on 01/20/2019 by Elvin Palmer MD at [facility] N/A: Spine Cervical Core Link 18876-18 / / Core Link [id number] Edgemont 3.5mm 50mm Line Prebent Jin Spinal Nonsterile 3500 Series - [id number] Implanted:Qty: 1 on 01/20/2019 by Elvin Palmer MD at [facility] N/A: Spine Cervical Core Link [id number] / / Core Link 29272-00 Edgemont Screw Set 5500 Series - Sna - [id number] Implanted:Qty: 4 on 06/20/2019 by Elvin Palmer MD at [facility] N/A: Back Core Link 70648-68 / NA / Core Link [id number] Edgemont 5.5mm 35mm Line Prebent Jin Spinal Nonsterile 5500 Series - Sns - [id number] Implanted:Qty: 2 on 06/20/2019 by Elvin Palmer MD at [facility] N/A: Back Core Link [id number] / NS / [employer] [id number] Inqu Paste Mix Plus Extracorporeal Circulation Specialist 10cc Bone Graft Hyaluronic Acid Poly - Sna - [id number] Implanted:Qty: 1 on 06/20/2019 by Elvin Palmer MD at [facility] N/A: Back IsTalenz [employer]c [id number] 01/19/2021 [id number] / NA / [id number] Core Link 54691-27 Edgemont 6.5mm 40mm Spine Pedicle Screw Bone 5500 Series - Sna - [id number] Implanted:Qty: 4 on 06/20/2019 by Elvin Palmer MD at [facility] N/A: Back Core Link 59614-76 / NA / Cerapedics Inc 700-025 I Factor Allograft Putty Syringe Graft 2.5cc Bone - [id number] Implanted:Qty: 1 on 11/26/2020 by Elvin Palmer MD at [facility] N/A: Spine Cervical Cerapedics Inc 09/08/2023 700-025 / / [id number] Cage Foundation 3d Cervical 14.8u04g8aw 7 Deg - [id number] Implanted:Qty: 1 on 11/26/2020 by Elvin Palmer MD at [facility] N/A: Spine Cervical Core Link 10/25/2024 [id number] / / [id number] Core Link Anodyne 12mm Level 1 Spine Cervical Anterior Plate Bone - [id number] Implanted:Qty: 1 on 11/26/2020 by Elvin Palmer MD at [facility] N/A: Spine Cervical Core Link / / Core Link Anodyne 4mm 14mm Variable Angle Self Tap Spine Cervical Screw - [id number] Implanted:Qty: 4 on 11/26/2020 by Elvin Palmer MD at [facility] N/A: Spine Cervical Core Link 60061-04 / / Procedures Procedure Name Priority Date/Time Associated Diagnosis Comments DEVICE CHECK - REMOTE Routine 12/26/2024 9:15 AM FRAME BANDER NICM (nonischemic cardiomyopathy) (CMS/HCC) (HCC) NSVT (nonsustained ventricular tachycardia) (HCC) DEVICE CHECK - REMOTE Routine 11/18/2024 12:03 PM FRAME BANDER NICM (nonischemic cardiomyopathy) (CMS/HCC) (HCC) NSVT (nonsustained ventricular tachycardia) (HCC) DEVICE CHECK - REMOTE Routine 10/27/2024 6:13 PM FRAME BANDER NICM (nonischemic cardiomyopathy) (CMS/HCC) (HCC) NSVT (nonsustained ventricular tachycardia) (HCC) SCAN - RADIOLOGY/IMAGING 10/19/2024 HEPATITIS C ANTIBODY STAT 10/15/2018 11:20 AM FRAME BANDER from Last 3 Months or Most Recently Relevant to Health Maintenance Results * DEVICE CHECK - REMOTE (12/26/2024 9:15 AM FRAME BANDER) Anatomical Region Laterality Modality Other Narrative 12/29/2024 1:37 PM FRAME BANDER Siine Bio-monitor III Loop Recorder. Dx; Syncope, PSVT, AT, RVOT VT s/p ablation. DOI 03/05/2022-[facility]. Senceraronik remote monitoring. Routine ILR remote. Normal device function. Battery function-Ok. Presenting rhythm: VS, regular (SR). Medications: Norvasc. No auto or patient recorded episodes noted. Counters since last scheduled transmission on 11/14/2024. --0 Tachy (total: 27) --0 Sudden rate drop (total: 7) --0 Pause (total: 19) --0 Symptom (total: 0) --0 AF (total: 1) Ectopy beats: 1880. See scanned report. [employer] remote f/u 02/06/2025. Shelley Looney, LARISSA Vy Pierce MD [facility] PRO CEDURES Final Result * DEVICE CHECK - REMOTE (11/18/2024 12:03 PM FRAME BANDER) Anatomical Region Laterality Modality Other Narrative 12/08/2024 3:50 PM FRAME BANDER Biotronik lllm implanted on March 05, 2022 [...] Continue to monitor remotely. Bandar Jordan Device Disease Management Nurse Vy Pierce MD [facility] PRO CEDURES Final Result * DEVICE CHECK - REMOTE (10/27/2024 6:13 PM FRAME BANDER) Anatomical Region Laterality Modality Other Narrative 10/28/2024 8:21 AM FRAME BANDER SenceraroniDroid system master Bio-monitor III Loop Recorder. Dx; Syncope, PSVT, AT, RVOT VT s/p ablation. DOI 03/05/2022-[facility]. Biotronik remote monitoring. Unscheduled ILR [...] Region Laterality Modality Other us Jessica Shoemaker POLICE MAGISTRATE Final Res ult * Hepatitis C antibody (10/15/2018 11:20 AM FRAME BANDER) Hep C Ab Non-Reactiv e Non-Reactiv e [facility] Blood specimen (specimen) 10/15/2018 11:20 AM FRAME BANDER 10/15/2018 11:41 AM FRAME BANDER Narrative [facility] - 10/15/2018 12:25 PM FRAME BANDER us Notinfile Unknown LAB MICROBIOLOGY - GENERAL ORD ERABLES Final Result [facility] [address] Department [place] [address] from Last 3 Months or Most Recently Relevant to Health Maintenance Insurance MEDICARE AETNA AETNA Technology MEDICARE AETNA SENIOR SUPPLEMENT Advance Directives For more information, please contact: [phone] * Full Code (Latest Code Status on File) Date Activated Date Inactivated Comments 09/07/2023 10:10 AM 09/07/2023 2:44 PM * Full Code Date Activated Date Inactivated Comments 06/20/2019 12:01 PM 06/20/2019 6:34 PM * Full Code Date Activated Date Inactivated Comments 10/15/2018 2:08 PM 10/15/2018 4:39 PM * Full Code Date Activated Date Inactivated Comments 07/16/2018 2:30 PM 07/16/2018 6:36 PM Care Teams Physical Anthropologist Relationship Specialty Start Date End Date Per Samson MD PCP - General Family Practice 06/01/23 Coretta Childers MD Consulting Physician Cardiology 08/28/23 Tima Henson MD [address] [place] [address] Consulting Physician Otolaryngology 08/28/23
[2025-01-09 08:29] LABS: Alpha Fetoprotein Tumor Marker 2.2 ng/mL
== END 2025-01-04 12:28 | disposition home or self-care (01) ==
LOC: ANHLAB 12:31
PROVIDERS: PCP Family Medicine; Visit Provider Internal Medicine Hematology & Oncology
DX: C79.51 Secondary malignant neoplasm of bone (principal); C80.1 Malignant (primary) neoplasm, unspecified
CPT/HCPCS: 36415; 80053; 82105; 85025

== ENCOUNTER 2025-01-09 08:34 | Outpatient (CLI) | payer MEDICARE, SELFPAY | END 2025-01-09 08:35 | disposition home or self-care (01) | PROVIDERS: PCP Family Medicine; Visit Provider Nurse Practitioner Adult Health | DX: C79.51 Secondary malignant neoplasm of bone (principal); S12.691A Other nondisplaced fracture of seventh cervical vertebra, initial encounter for closed fracture; R59.0 Localized enlarged lymph nodes; Z98.1 Arthrodesis status; X58.XXXA Exposure to other specified factors, initial encounter | CPT/HCPCS: 72156; 72157; 72158; A9577; A9579 ==

== ENCOUNTER 2025-01-17 00:47 | Day surgery (SDC) | payer MEDICARE, SELFPAY ==
[2025-01-05 14:17] VITALS: BMI 28.3
--- OUTSIDE RECORDS SUMMARY | 2025-01-17 00:50 | XMS_ITS | Clinical Summary ---
Author Organization [facility] Address [address] [facility] [place] [address] Care Team Providers Care Plant Assigner Name Role Phone Edy Aviles DO Primary Care Provider [phone] Source Comments [facility],non-owned Affiliates and Associated Physician Practices is amultiple site organization consisting of ambulatory clinics and hospital sitesin [place], [place], [place] and [place]. This disclosure is being madepursuant to the Care Everywhere program and may not contain all information available regarding this patient. Last updated 18.[facility] Allergies Active Allergy Reactions Criticality Noted [...] Immunizations Name Administration Dates Next Due Ian Lumier primary monoval ent 12+ yr 0.3mL Purple [...] Comments Blood Pressure 148/57 10/26/2021 7:27 AM BARREL PLATER Pulse 95 10/26/2021 7:27 AM BARREL PLATER Temperature 36.8 C (98.3 F) 10/26/2021 7:27 AM BARREL PLATER Respiratory Rate 16 10/25/2021 10:58 PM BARREL PLATER Oxygen Saturation 100% 10/26/2021 7:27 AM BARREL PLATER Inhaled Oxygen Concentration 40% 10/25/2021 1 2:10 PM BARREL PLATER Weight 85.7 kg (189 lb) 07/08/2022 9:04 [...] 3-4 weeks. Medical Devices Implanted Type Area Grinder Set Up Operator External Device Identifier Shelf Expiration Date Model / Serial / Lot Pin Hlf 255mm 5mm Jtx Lng Ss 35mm Extfix Implanted:Qty: 2 on 10/11/2021 by Jovon Maloney, DO at [facility] Left: Tibia Olmos [employer] Nephew Trauma [id number] / / Pin Hlf 40mm 5mm Jtx Lng Ti Ntrd Extfix Implanted:Qty: 2 on 10/11/2021 by Jovon Maloney, DO at [facility] Left: Tibia [employer] [id number] / / Bar Extfix 200mm Jtx Cfbr Nonster Disp Implanted:Qty: 2 on 10/11/2021 by Jovon Maloney, DO at [facility] Left: Tibia [employer] [id number] / / Screw 3.5mm 46mm Ft Hex Drv Nlckg Fly Implanted:Qty: 1 on 10/25/2021 by Jovon Maloney, at [facility] Left: Tibia Teresa Biomet 8150-37-046 / / Screw 3.5mm 50mm Ft Nonlock Hex Drv Elb Implanted:Qty: 2 on 10/25/2021 by Jovon Maloney DO at [facility] Left: Tibia Teresa [employer]omet 8150-37-050 / / Screw 3.5mm 55mm Ft Slf-Tap Hex Lopro Implanted:Qty: 1 on 10/25/2021 by Jovon Maloney, DO at [facility] Left: Tibia Teresa [employer]omet 8150-37-055 / / Screw 3.5mm 65mm T15 Lck Slf-Tap Tip Tpr Implanted:Qty: 3 on 10/25/2021 by Jovon Maloney DO at [facility] Left: Tibia Teresa [employer]omet 8161-35-065 / / Screw 3.5mm 70mm T15 Lck Slf-Tap Tip Tpr Implanted:Qty: 2 on 10/25/2021 by Jovon Maloney, at [facility] Left: Tibia Teresa [employer]omet [id number] / / Plate 5 Hl Lck Lopro Dist Blt Tip Tib Lt Implanted:Qty: 1 on 10/25/2021 by Jovon Maloney, at [facility] Left: Tibia Teresa [employer] 8162-35-705 / / Screw 3.5mm 65mm 2.2mm Mldir Lck Sq Drv Implanted:Qty: 1 on 10/25/2021 by Jovon Maloney, at [facility] Left: Tibia Teresa [employer]omet [id number] / / Screw 3.5mm 80mm Sq Drv Nonlock Lopro Implanted:Qty: 1 on 10/25/2021 by Jovon Maloney DO at [facility] Left: Tibia Teresa [employer]omet 1312-18-080 / / Screw 3.5mm 75mm T15 Lck Slf-Tap Tip Tpr Implanted:Qty: 1 on 10/25/2021 by Jovon Maloney DO at [facility] Left: Tibia Teresa [employer]omet 8161-35-075 / / Plate 5 Hl Lopro Lck Ulna Olcrn Dist 61 Implanted:Qty: 1 on 10/25/2021 by Jovon Maloney DO at [facility] Left: Tibia Teresa Biomet 49053-0 / / Screw 3.5mm 34mm Ft Nonlock Hex Drv Elb Implanted:Qty: 1 on 10/25/2021 by Jovon Maloney DO at [facility] Left: Tibia Teresa [employer]omet 8150-37-034 / / Screw 3.5mm 38mm Ft Slf-Tap Hex Lopro Implanted:Qty: 1 on 10/25/2021 by Jovon Maloney DO at [facility] Left: Tibia Teresa [employer] 8150-37-038 / / Screw 3.5mm 40mm Ft Slf-Tap Hex Lopro Implanted:Qty: 1 on 10/25/2021 by Jovon Maloney DO at [facility] Left: Tibia Teresa [employer]omet 8150-37-040 / / Explanted Type Area Grinder Set Up Operator External Device Identifier Shelf Expiration Date Model / Serial / Lot Clamp Extfix Jtx 10.5mm Bar To Bar Mr Buitrago Explanted:Qty: 2 on 10/11/2021 at [facility] Left: Tibia [employer] Nephew Trauma [id number] / / Screw 3.5mm 55mm Ft Slf-Tap Hex Lopro Explanted:Qty: 1 on 10/25/2021 by Jovon Maloney DO at [facility] Left: Tibia Teresa [employer] 8150-37-055 / / Wire K 1.6mm 6in Hlf By Pnt Ss Fx Explanted:Qty: 4 on 10/25/2021 by Jovon Maloney DO at [facility] Left: Tibia Teresa [employer]omet [id number] / / Screw 3.5mm 36mm Ft Slf-Tap Hex Lopro Explanted:Qty: 1 on 10/25/2021 by Jovon Maloney DO at [facility] Left: Tibia Teresa Biomet [id number] / / Procedures Procedure Name Priority Date/Time Associated Diagnosis Comments BASIC METABOLIC PANEL (CALCIUM TOTAL) Routine 10/26/2021 2:31 AM BARREL PLATER Closed fracture of left tibial plateau, initial encounter from Last 3 Months or Most Recently Relevant to Health Maintenance Results * (ABNORMAL) BASIC METABOLIC PANEL (CALCIUM TOTAL) (10/26/2021 2:31 AM BARREL PLATER) BUN 14 7 - 26 mg/dL 10/26/2021 3:29 AM [facility] Creatinine 0.95 0.56 - 0.96 mg/dL 10/26/2021 3:29 AM [facility] Sodium 134(L) 136 - 145 mmol/L 10/26/2021 3:29 AM [facility] Potassium 4.2 3.5 - 4.5 mmol/L 10/26/2021 3:29 AM [facility] Chloride 102 98 - 107 mmol/L 10/26/2021 3:29 AM [facility] CO2 25 22 - 29 mmol/L 10/26/2021 3:29 AM [facility] Glucose 106 70 - 115 mg/dL 10/26/2021 3:29 AM [facility] Calcium 8.9 8.4 - 10.2 mg/dL 10/26/2021 3:29 AM [facility] Anion Gap 11 8 - 18 10/26/2021 3:29 AM [facility] BUN/Creatinine Ratio 15 7 - 23 10/26/2021 3:29 AM [facility] Osmolality Calculated 279 270 - 300 mOsm/kg 10/26/2021 3:29 AM [facility] eGFR by CKD-EPI 63(L) >=90 mL/min/1.7 3 m2 10/26/2021 3:29 AM [facility] Blood BLOOD SPECIMEN / Unknown Lab Venipuncture / Unknown 10/26/2021 2:31 AM BARREL PLATER 10/26/2021 3:01 AM [facility] Jovon Maloney DO LAB - CHEMISTRY [facility]OC[facility] [address] [place] [address], [facility] [phone] from Last 3 Months or Most Recently Relevant to Health Maintenance Advance Directives * Full Code (Latest Code Status on File) Date Activated Date Inactivated Comments 10/25/2021 1:30 PM 10/26/2021 1:32 PM * Full Code Date Activated Date Inactivated Comments 10/11/2021 12:36 PM 10/15/2021 3:44 PM Care Teams Plant Assigner Relationship Specialty Start Date End Date Edy Aviles DO [address] [place], [place] [id number] PCP - General 06/17/22
--- OUTSIDE RECORDS SUMMARY | 2025-01-17 00:50 | XMS_ITS | Encounter Summary ---
Author Organization [facility] Address [address] [place] [address] Care Team Providers Care Client Insights Consultant Name Role Phone Edy Aviles DO Primary Care Provider [phone] Encounter Details Date Type Department Care Team (Late st Contact Info) Description 12/19/2020 Lab Requisition [facility] [address], [place] [id number] [place] [address] Social History Tobacco Use Types Packs/Day Years [...] Comments DERMATOPATHOLOGY Routine 12/18/2020 12:0 0 AM FLOORMAN documented in this encounter Results * DERMATOPATHOLOGY (12/18/2020 12:00 AM FLOORMAN) Case Report Dermatopathology Report Case: [id number] Authorizing Provider: Israel Lang MD Collected: 12/18/2020 12:00 AM Ordering Location: [facility] Received: 12/19/2020 11:37 AM Pathologist: Nata Olmos MD Specimen: Skin, left ear superior rim 4:54 PM [facility] DERMATOP[facility] Final Diagnosis Specimen A. 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 4:54 PM [facility] Gross Description Specimen A: Received is one formalin filled container labeled with the patient's name and designated left ear superior rim. The specimen consists of a shave biopsy (4 pieces) measuring [id number], 2d4v9fp, 8s1a5xe, & 3n6s7gg. Jar 0. 4:54 PM [facility] DERMATOPATH[facility]Y LABORATORY Microscopic Description Specimen A. SKIN, left ear superior rim: There is epidermal hyperplasia overlying dilated blood vessels and fibroplasia. 4:54 PM [facility] DERMATOPATHOLOGY [facility]OR[facility] Disclaimer An external and internal positive and negative controls are appropriate for the histochemical, immunohistochemical and immunofluorescence stain(s) in this case (if any), except where stated explicitly. The performance characteristics of the stain(s) cited in this report were developed and its performance characteristic determined by the Dermatopathology Laboratory at [facility], directed by Dr. Yessi Jackman. These tests need not be, and therefore are not, approved by the [place] Food and Drug Administration. The tests are used for clinical purposes. Billing Codes Specimen Charges Stain Charges 36595 1 4:54 PM [facility] DERMATOPATHOLOGY [facility]ORAT[facility] Embedded Images 4:54 PM [facility] DERMATOPATH[facility]Y [facility] Pathology/Cytolog y TISSUE SPECIMEN FROM SKIN / Unknown 12/18/2020 12/19/2020 11:37 AM [facility] Israel Lang MD LAB - PATHOLOGY/CYTO LOGY ORDERABLES DERMATOPATHOLOGY LABORATORY [facility] - Department of Dermatology [address], [address] [phone] documented in this encounter Visit Diagnoses Not on filedocumented in this encounter Care Teams Client Insights Consultant Relationship Specialty Start Date End Date Edy Aviles DO [address] [place] [address] PCP - General 06/17/22 documented as of this encounter
--- OUTSIDE RECORDS SUMMARY | 2025-01-17 00:50 | XMS_ITS | Referral Summary ---
Author Organization [facility] [address] Address [address] [place] [phone] Care Team Providers Care Extracorporeal Circulation Specialist Name Role Phone Per Samson MD Primary Care Provider [phone] Coretta Childers MD Unavailable [phone] Tima Henson MD Unavailable [phone] Encounters Date Type Department Care Team Description 01/10/2025 8:00 AM VORTEX OPERATOR Office Visit [facility] [address] [place] [address] [place] [phone] Jessica Shoemaker NP Unintended weight loss; Status post placement of implantable loop recorder; Malignant neoplasm metastatic to bone (HCC) 12/26/2024 7:45 AM VORTEX OPERATOR Ancillary Procedure [facility] [address] [place] [address] [place] [phone] Syncope and collapse (Primary Dx); NICM (nonischemic cardiomyopathy) (HCC); NSVT (nonsustained ventricular tachycardia) (HCC); RVOT ventricular tachycardia (HCC); Paroxysmal supraventricular tachycardia; Status post placement of implantable loop recorder 11/25/2024 Telephone [facility] [address] [place] [address] [place] [phone] Jessica Shoemaker NP 11/18/2024 Orders Only [facility] [address] [place] [address] [place] [phone] Vy Pierce MD Status post placement of implantable loop recorder (Primary Dx); Paroxysmal supraventricular tachycardia; History of radiofrequency ablation (RFA) procedure for cardiac arrhythmia; Syncope and collapse; RVOT ventricular tachycardia (HCC) 11/14/2024 9:15 AM VORTEX OPERATOR Ancillary Procedure [facility] [address] [place] [phone] Status post placement of implantable loop recorder (Primary Dx); NICM (nonischemic cardiomyopathy) (HCC); NSVT (nonsustained ventricular tachycardia) (HCC) 10/28/[address] [phone] Jessica Shoemaker NP 10/27/2024 1:00 PM VORTEX OPERATOR Ancillary Procedure [facility] [address] [place] [phone] Syncope and collapse (Primary Dx); NICM (nonischemic cardiomyopathy) (HCC); NSVT (nonsustained ventricular tachycardia) (HCC); Status post placement of implantable loop recorder; RVOT ventricular tachycardia (HCC); Paroxysmal supraventricular tachycardia 10/27/2024 Orders Only [facility] [address] [place] [address] [place] [phone] Jessica Shoemaker NP Dizziness of unknown etiology 10/26/[address] [place] [phone] Vy Pierce MD 10/19/2024 Orders Only [facility] Information [facility] [address] [place] [address] Jessica Shoemaker NP from Last 3 Months Allergies Active Allergy [...] mouth 2 (two) times a day Active rzaefpxe-hlt-NV-ly copen-lutein 0.4-300-250 mg-mcg-mcg tabletIndications: Vitamin Deficiency Prevention [...] tablet 04/28/20 24 Active Additional Information Patient not taking.Reported on 01/10/2025 bumetanide (BUMEX) 2 mg tabletIndications: Lower extremity edema TAKE 1 TABLET BY MOUTH DAILY 30 MINUTES AFTER METOLAZONE 90 tablet 1 08/29/20 24 Active traMADoL (ULTRAM) 50 mg tablet Take by mouth every 8 (eight) hours as needed 08/30/20 24 Active amLODIPine (NORVASC) 5 mg tabletIndications: Essential hypertension Take 1 tablet (5 mg total) by mouth daily 90 tablet 3 07/13/20 24 025 Discontin ued(Thera py completed ) Active Problems Problem Noted Date Diagnosed Date Vocal cord nodule 08/28/2023 Hoarseness 08/28/2023 Assessment & Plan (08/28/2023 2:02 PM CDT): She has hoarseness due to vocal polyps. We are scheduling her for surgery. Vocal cord polyps 08/28/2023 Assessment & Plan (09/21/2023 9:12 AM VORTEX OPERATOR): She is doing pretty well. Feels [...] and proceed with this. Sinus node dysfunction 06/08/2023 Morbid (severe) obesity due to excess calories 0 06/01/2023 Body mass index 40.0-44.9, adult ([facility]) 06/01 Sleep-disordered breathing 09/07/2022 Status post placement of implantable loop record er 03/07/2022 Overview (03/07/2022): [employer] Bio-monitor III Loop Recorder. Dx; Syncope, PSVT, AT, RVOT VT s/p ablation. DOI 03/05/2022-[facility]. [employer] remote monitoring. Dizziness 08/19/2021 Lower extremity edema [...] (10/26/2020): Added automatically from request for surgery [id number] Migraine 08/10/2020 Assessment & Plan (08/10/2020 2:22 [...] neuralgia. Assessment & Plan (11/30/2019 1:53 PM VORTEX OPERATOR): Ms. Palma has occipital neuralgia with [...] less. Assessment & Plan (10/02/2020 1:29 PM VORTEX OPERATOR): Ms. Palma continues to do well clinically after posterior lumbar decompression fusion at L4-5. She has good alignment. There is no lucency around the hardware. We will continue to follow this over time. Assessment & Plan (11/30/2019 1:51 PM VORTEX OPERATOR): Ms. Palma reports persistent numbness in [...] (05/20/2019): Added automatically from request for surgery [id number] Assessment & Plan (01/22/2023 12:27 PM CDT): [...] physician. Assessment & Plan (01/08/2021 12:53 PM VORTEX OPERATOR): Ms. Palma does not have pain [...] time. Assessment & Plan (10/02/2020 1:29 PM VORTEX OPERATOR): Ms. Palma was improved after cervical [...] to stretch. FOLLOW UP APPT: With SALES ASSISTANT in 4 weeks with AP/LAT Cervical spine films. Assessment & Plan (11/24/2018 11:40 AM VORTEX OPERATOR): Patient has new onset symptoms of [...] patient to schedule on her own at [facility]. We will await the CD to be mailed to our office for Dr. Palmer to review and provide further recommendations. She is to continue the same activity restrictions as outlined prior to surgery. Neuropathic pain 11/24/2018 Assessment & Plan (11/24/2018 11:42 AM VORTEX OPERATOR): For her neuropathic pain and would [...] (12/16/2018): Added automatically from request for surgery [id number] Cervical spinal stenosis 09/27/2018 Overview (09/27/2018): Added automatically from request for surgery [id number] HNP (herniated nucleus pulposus), lumbar 07/13/2018 03/02/2019 Overview (07/13/2018): Added automatically from request for surgery [id number] Immunizations Immunization Administration Dates Next Due Pfizer [...] on file Legal Sex Female 11:06 AM VORTEX OPERATOR Gender Identity Not on file Sexual Orientation Not on file Last Filed Vital Signs Vital Sign Reading Time Taken Comments Blood Pressure 134/78 01/10/2025 8:00 AM VORTEX OPERATOR Pulse 108 01/10/2025 8:00 AM VORTEX OPERATOR Temperature 36.4 C (97.5 F) 09/07/2023 10:05 AM CDT Respiratory Rate 18 09/15/2023 9:25 AM VORTEX OPERATOR Oxygen Saturation 98% 01/10/2025 8:00 AM VORTEX OPERATOR Inhaled Oxygen Concentration - - Weight 69.9 kg (154 lb 3.2 oz) 01/10/2025 8:00 A M VORTEX OPERATOR Height 154.9 cm (5' 1 ) 01/10/2025 8:00 AM VORTEX OPERATOR Body Mass Index 29.14 01/10/2025 8:00 AM VORTEX OPERATOR Plan of Treatment Not on file Medical Devices Implanted Type Area Drafting Teacher Device Identifier Shelf Expiration Date Model / Serial / Lot Loop Recorder Biotronik Biomonitor Iii-Left Upper Chest Chest Knee Arthroplasty Right: Knee Left Lower Leg Hardware From Fracture Left: Leg [employer] Inc Os-201 Hemasorb Spatula Wax 2gm Bone Sterile - [id number] Implanted:Qty: 1 on 10/15/2018 by Elvin Palmer MD at [facility] N/A: Spine Cervical [employer] Inc 10/08/2020 OS-201 / / [id number] Cage [employer] 3d Cervical 14.1r47u2cg 7 Deg - [id number] Implanted:Qty: 1 on 10/15/2018 by Elvin Palmer MD at [facility] N/A: Spine Cervical Core Link [id number] 12/02/2022 [id number] / / [id number] Core Link Anodyne 12mm Level 1 Spine Cervical Anterior Plate Bone - [id number] Implanted:Qty: 1 on 10/15/2018 by Elvin Palmer MD at [facility] N/A: Spine Cervical Core Link / / Core Link Anodyne 4mm 14mm Variable Angle Self Tap Spine Cervical Screw - [id number] Implanted:Qty: 4 on 10/15/2018 by Elvin Palmer MD at [facility] N/A: Spine Cervical Core Link / / Screw Bone Biased Angle L14 Mm Od3.5 Mm Cephelad Caudal Nonsterile Posterior Occipital Cervical Thoracic System 3500 Series - [id number] Implanted:Qty: 4 on 01/20/2019 by Elvin Palmer MD at [facility] N/A: Spine Cervical Core Link 08766-75 / / Screw Set Spinal 3500 Series - [id number] Implanted:Qty: 4 on 01/20/2019 by Elvin Palmer MD at [facility] N/A: Spine Cervical Core Link 01897-58 / / Core Link [id number] [place] 3.5mm 50mm Line Prebent Jin Spinal Nonsterile 3500 Series - [id number] Implanted:Qty: 1 on 01/20/2019 by Elvin Palmer MD at [facility] N/A: Spine Cervical Core Link [id number] / / Core Link 09308-04 [place] Screw Set 5500 Series - Sna - [id number] Implanted:Qty: 4 on 06/20/2019 by Elvin Palmer MD at [facility] N/A: Back Core Link 36588-12 / NA / Core Link [id number] [place] 5.5mm 35mm Line Prebent Jin Spinal Nonsterile 5500 Series - Sns - [id number] Implanted:Qty: 2 on 06/20/2019 by Elvin Palmer MD at [facility] N/A: Back Core Link [id number] / NS / [employer] [id number] Inqu Paste Mix Plus Insurance Marketing Rep 10cc Bone Graft Hyaluronic Acid Poly - Sna - [id number] Implanted:Qty: 1 on 06/20/2019 by Elvin Palmer MD at [facility] N/A: Back [employer] [id number] 01/19/2021 [id number] / NA / [id number] Core Link 60314-58 [place] 6.5mm 40mm Spine Pedicle Screw Bone 5500 Series - Sna - [id number] Implanted:Qty: 4 on 06/20/2019 by Elvin Palmer MD at [facility] N/A: Back Core Link 01704-19 / NA / Cerapedics Inc 700-025 I Factor Allograft Putty Syringe Graft 2.5cc Bone - [id number] Implanted:Qty: 1 on 11/26/2020 by Elvin Palmer MD at [facility] N/A: Spine Cervical [employer] Inc 09/08/2023 700-025 / / [id number] Cage Foundation 3d Cervical 14.2q16j1ju 7 Deg - [id number] Implanted:Qty: 1 on 11/26/2020 by Elvin Palmer MD at [facility] N/A: Spine Cervical Core Link 10/25/2024 [id number] / / [id number] Core Link Anodyne 12mm Level 1 Spine Cervical Anterior Plate Bone - [id number] Implanted:Qty: 1 on 11/26/2020 by Elvin Palmer MD at [facility] N/A: Spine Cervical Core Link / / Core Link Anodyne 4mm 14mm Variable Angle Self Tap Spine Cervical Screw - [id number] Implanted:Qty: 4 on 11/26/2020 by Elvin Palmer MD at [facility] N/A: Spine Cervical Core Link / / Procedures Procedure Name Priority Date/Time Associated Diagnosis Comments DEVICE CHECK - REMOTE Routine 12/26/2024 9:15 AM VORTEX OPERATOR NICM (nonischemic cardiomyopathy) (HCC) NSVT (nonsustained ventricular tachycardia) (HCC) DEVICE CHECK - REMOTE Routine 11/18/2024 12:03 PM VORTEX OPERATOR NICM (nonischemic cardiomyopathy) (HCC) NSVT (nonsustained ventricular tachycardia) (HCC) DEVICE CHECK - REMOTE Routine 10/27/2024 6:13 PM VORTEX OPERATOR NICM (nonischemic cardiomyopathy) (HCC) NSVT (nonsustained ventricular tachycardia) (HCC) SCAN - RADIOLOGY/IMAGING 10/19/2024 HEPATITIS C ANTIBODY STAT 10/15/2018 11:20 AM VORTEX OPERATOR from Last 3 Months or Most Recently Relevant to Health Maintenance Results * DEVICE CHECK - REMOTE (12/26/2024 9:15 AM VORTEX OPERATOR) Anatomical Region Laterality Modality Other Narrative 12/29/2024 1:37 PM VORTEX OPERATOR [employer] Bio-monitor III Loop Recorder. Dx; Syncope, PSVT, AT, RVOT VT s/p ablation. DOI 03/05/2022-[facility]. [employer] remote monitoring. Routine ILR remote. Normal device [...] [employer] remote f/u 02/06/2025. Shelley Looney RN [facility] Chelly Pierce MD CV CARDIAC SERVICES PRO CEDURES Final Result * DEVICE CHECK - REMOTE (11/18/2024 12:03 PM VORTEX OPERATOR) Anatomical Region Laterality Modality Other Narrative 12/08/2024 3:50 PM VORTEX OPERATOR [employer]ot[employer]ik lllm implanted on March 05, [...] Continue to monitor remotely. Bandar Jordan Device Graphic Design Teacher us [facility] Chelly Pierce MD CV CARDIAC SERVICES PRO CEDURES Final Result * DEVICE CHECK - REMOTE (10/27/2024 6:13 PM VORTEX OPERATOR) Anatomical Region Laterality Modality Other Narrative 10/28/2024 8:21 AM VORTEX OPERATOR [employer] Bio-monitor III Loop Recorder. Dx; Syncope, PSVT, AT, RVOT VT s/p ablation. [facility] [employer] remote [facility]. Unscheduled ILR remote due to [...] 1) Ectopy beats: 933. See scanned report. [employer] remote f/u 11/14/2024. Shelley Looney, LARISSA us [employer] Chelly Pierce MD CV CARDIAC SERVICES PRO CEDURES Final Result * SCAN - RADIOLOGY/IMAGING (10/19/2024) Anatomical Region Laterality Modality Other us Jessica Shoemaker SALES ASSISTANT Final Res ult * Hepatitis C antibody (10/15/2018 11:20 AM VORTEX OPERATOR) Hep C Ab Non-Reactiv e Non-Reactiv e [facility] Blood specimen (specimen) 10/15/2018 11:20 AM VORTEX OPERATOR 10/15/2018 11:41 AM VORTEX OPERATOR Narrative [facility] - 10/15/2018 12:25 PM VORTEX OPERATOR us Notinfile Unknown LAB MICROBIOLOGY - GENERAL ORD ERABLES Final Result [facility] [address] [place] [address] from Last 3 Months or Most Recently Relevant to Health Maintenance Insurance MEDICARE AETNA MEDICARE AETNA MEDICARE AETNA SENIOR SUPPLEMENT Advance Directives For more information, please contact: [phone] * Full Code (Latest Code Status on File) Date Activated Date Inactivated Comments 09/07/2023 10:10 AM 09/07/2023 2:44 PM * Full Code Date Activated Date Inactivated Comments 06/20/2019 12:01 PM 06/20/2019 6:34 PM * Full Code Date Activated Date Inactivated Comments 10/15/2018 2:08 PM 10/15/2018 4:39 PM * Full Code Date Activated Date Inactivated Comments 07/16/2018 2:30 PM 07/16/2018 6:36 PM Care Teams Extracorporeal Circulation Specialist Relationship Specialty Start Date End Date Per Samson MD PCP - General Family Practice 06/01/23 Coretta Childers MD Consulting Physician Cardiology 08/28/23 Tima Henson MD [address] [place] [address] Consulting Physician Otolaryngology 08/28/23
--- OUTSIDE RECORDS SUMMARY | 2025-01-17 00:50 | XMS_ITS | Clinical Summary ---
Author Organization [facility] Address [address] [place] [address] Care Team Providers Care News Internship Name Role Phone Unavailable Primary Care Provider [...] Encounters Date Type Department Care Team Description 01/14/2025 External Device Data ST[facility] ABSTRACTION Provider, Abstract 01/13/2025 Orders Only [facility] [place] [address] [place] [phone] Basil Ludwig MD 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) (Primary Dx) 01/11/2025 External Device Data STL ABSTRACTION Provider, Abstract 01/11/2025 External Device Data ST[facility] ABSTRACTION Provider, Abstract 01/10/2025 External Device Data ST[facility] ABSTRACTION Provider, Abstract 01/10/2025 Abstract [facility] [place] [address] [place] [phone] Basil Ludwig MD 01/09/2025 Orders Only [facility] [place] [address] Basil Ludwig MD 01/04/2025 12:00 PM [employer]PERVISOR [employer] Office Visit [facility] [place] [address] [place] [phone] Basil Ludwig MD 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) (Primary Dx) 01/04/2025 Orders Only [facility] - [place] [address] [place] [address] Basil Ludwig MD Carcinoma metastatic to bone [...] on file Legal Sex Female 2:15 PM [employer]PER[employer] Gender Identity Not on file Sexual Orientation Not on file Last Filed Vital Signs Vital Sign Reading Time Taken Comments Blood Pressure 136/80 01/04/2025 11:45 AM [employer] Pulse 97 01/04/2025 11:41 AM [employer] Temperature 36.4 C (97.5 F) 01/04/2025 11:41 AM [employer] Respiratory Rate 15 01/04/2025 11:41 AM [employer] Oxygen Saturation 92% 01/04/2025 11:41 AM [employer]PER[employer]OR [employer] Inhaled Oxygen Concentration - - Weight 71.7 kg (158 lb) 01/04/2025 11:41 AM [employer] Height 154.9 cm (5' 1 ) 01/04/2025 11:41 AM [employer] Body Mass Index 29.85 01/04/2025 11:41 AM [employer]PER[employer]OR [employer] Plan of Treatment Upcoming Encounters Date Type Department Care Team (Late st Contact Info) Description 01/19/2025 11:00 AM CDT Office Visit [facility] [address] [facility] [address] [place] [address] Basil Ludwig MD [address] [place] [address] Health Maintenance Due Date Last Done Comments Pre-Diabetes and Diabetes Screening 1956 DTAP/TDAP/TD VACCINES (1 - Tdap) 1975 Traditional Medicare (ACO) A nnual Wellness Visit 1975 BREAST CANCER SCREENING 1996 COLORECTAL SCREENING 2001 Colorectal Cancer Screening 2001 FIT-DNA Q 3 years 2001 FIT/FOBT Q 1 year 2001 Flex Sig/CT Colonography Q 5 years 2001 PNEUMOCOCCAL VACCINE 50+ YEA RS (1 of 1 - PCV) 2006 ZOSTER VACCINE (1 of 2) 2006 OSTEOPOROSIS SCREENING 2021 INFLUENZA VACCINE (#1) 2024 COVID-19 Vaccine ( - season) 2024 09/08/2021, 03/05/2021, 02/05/2021 RSV VACCINE (60+ or ) (1 - 1-dose 75+ series) 2031 Procedures Procedure Name Priority Date/Time Associated Diagnosis Comments [facility] Routine 01/13/2025 5:40 PM SUPERVISOR [employer] 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) [facility] NORMAL BLOOD Routine 01/04/2025 1:17 PM [employer]PER[employer]OR [employer] 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) [facility] DNA AND RNA SOLID TUMOR Routine 01/04/2025 1:17 PM [employer]PER[employer]OR [employer] 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) ALPHA FETOPROTEIN TUMOR MARKER Routine 01/04/2025 10:32 AM SUPERVISOR [employer] from Last 3 Months Results * [facility] XF (01/13/2025 5:40 PM SUPERVISOR [employer]) Reason for Study To identify mutations relevant to patient's cancer. 01/13/2025 5:40 PM [employer]PER[employer]OR [employer] [facility] Genetic Diseases Assessed Cancer 01/13/2025 5:40 PM [employer]PER[employer]OR [employer] [facility] Description of Ranges of DNA Sequences Examined 105 gene liquid biopsy 01/13/2025 5:40 PM SUPER[employer]OR [employer] [facility] Overall Interpretation positive 01/13/2025 5:40 PM SUPER[employer]OR [employer] [facility] [email or web address] 01/13/2025 5:40 PM SUPERVISOR [employer] [facility] Comment:[facility] link Low Coverage Regions ERRFI1, JAK1, PMS2, SPOP 01/13/2025 5:40 PM [employer]PER[employer]OR [employer] [facility] Trial Count 3 01/13/2025 5:40 PM SUPER[employer]OR [employer] [facility]: Clinical Trial Match 1 Clinical Trial NCT ID: [id number] Clinical Trial Title: TAPUR: Testing the Use of Food and Drug Administration (FDA) Approved Drugs That Target a Specific Abnormality in a Tumor Gene in People With Advanced Stage Cancer Clinical Trial URL: [email or web address] [email or web address]/[email or web address] Clinical Phase: Phase 2 Clinical Trial Matches: AKT1 p.E17K mutation Clinical Trial Distance and Location: [address], [place], [place] 01/13/2025 5:40 PM SUPERVISOR [employer] [facility]: Clinical Trial Match 2 Clinical Trial NCT ID: [id number] Clinical Trial Title: Study Of ATRN-119 In Patients With Advanced Solid Tumors Clinical Trial URL: [email or web address] [email or web address].gov/[email or web address]/[email or web address] Clinical Phase: Phase 1/Phase 2 Clinical Trial Matches: TP53 p.V157L mutation Clinical Trial Distance and Location: [address] [place], [place] 01/13/2025 5:40 PM SUPERVISOR [employer] [facility]: Clinical Trial Match 3 Clinical Trial NCT ID: [id number] Clinical Trial Title: IACS-6274 With or Without Bevacizumab and Paclitaxel for the Treatment of Advanced Solid Tumors Clinical Trial URL: [email or web address] [email or web address].gov/ct2/apolonia [email or web address] Clinical Phase: Phase 1 Clinical Trial Matches: PTEN c.493-1G>C mutation, AKT1 p.E17K mutation Clinical Trial Distance and Location: [address], [place], [place] 01/13/2025 5:40 PM SUPERVISOR [employer] [facility] Tumor Mutational Angelica 8.6 m/MB 01/13/2025 5:40 PM SUPERVISOR [employer] [facility] Microsatellite Instability Note MSI-High not detected 01/13/2025 5:40 PM SUPERVISOR [employer] [facility] Treatment Implications Note No reportable treatment options found. 01/13/2025 5:40 PM SUPERVISOR [employer] [facility] Blood specimen (specimen) 01/08/2025 5:50 AM SUPERVISOR [employer] Narrative This result has genomic variants that were not included in this document. us Basil Ludwig MD MOLECULAR ORDERABLES Final Resu lt [facility] [address], [address] [place] [address], [facility] [address], [address] [place] [address] * [facility] NORMAL BLOOD (01/04/2025 1:17 PM SUPERVISOR [employer] WAVE) [facility] 01/04/2025 11:00 PM [employer]PER[employer]OR [employer] [facility] Comment:See NGS Report for R esults. Blood specimen (specimen) 01/04/2025 1:17 PM SUPERVISOR [employer] 01/04/2025 1:19 PM SUPERVISOR [employer] us Basil Ludwig MD MOLECULAR ORDERABLES Final Resu lt [facility] [address], [address] [place] [address], [facility] [address], [address] [place] [address] * ALPHA FETOPROTEIN TUMOR MARKER (01/04/2025 10:32 AM SUPERVISOR [employer] WAVE) Blood us Basil Ludwig MD CHEMISTRY ORDERABLES Final Resu lt from Last 3 Months Insurance [employer] MEDICARE SUPP AESSI
--- OUTSIDE RECORDS SUMMARY | 2025-01-17 00:50 | XMS_ITS | Encounter Summary ---
Author Organization [facility] Address [address] [place] [address] Care Team Providers Care Dog License Officer Supervisor Name Role Phone Edy Aviles DO Primary Care Provider [phone] Encounter Details Date Type Department Care Team (Late st Contact Info) Description 02/24/2024 Lab Requisition [facility] - DermPath Lab [address], [facility] [place] [id number] Israel Lang [place] [address] Social History Tobacco Use Types Packs/Day Years [...] AM CDT) Case Report Dermatopathology Report Case: [id number] Authorizing Provider: Israel Lang MD Collected: 02/23/2024 12:00 AM Ordering Location: [facility] - Received: 02/25/2024 06:55 AM [...] five pieces in aggregate shave biopsy measuring 34e14s5 mm. Jar 0. 1:41 PM T DERMATOPATHOLOGY [...] characteristic determined by the Dermatopathology Laboratory at [facility], directed by Dr. Yessi Jackman. These tests need not be, and therefore are not, approved by the [place] Food and Drug Administration. The tests are used for clinical purposes. Billing Codes Specimen Charges Stain Charges 45120 21322 69604 1 1 1 1:41 PM CDT DERMATOPATHOLOGY [...] LAB - PATHOLOGY/CYTO LOGY ORDERABLES DERMATOPATHOLOGY LABORATORY [facility] - Department of Dermatology [facility] Specialized Medicine [address] [place] [address], [address] [phone] documented in this encounter Visit Diagnoses Not on filedocumented in this encounter Care Teams Dog License Officer Supervisor Relationship Specialty Start Date End Date Edy Aviles DO [address] [place], [place] [id number] PCP - General 06/17/22 documented as of this encounter
--- OUTSIDE RECORDS SUMMARY | 2025-01-17 00:50 | XMS_ITS | Clinical Summary ---
Author Organization [facility] Address [address] [place] [address] Care Team Providers Care Docent Coordinator Name Role Phone Zafar Reddy MD Primary Care Provider [phone] Allergies Active Allergy Reactions Criticality Noted Date [...] (11/12/2022): Added automatically from request for surgery [id number] Social History Tobacco Use Types Packs/Day Years [...] age to complete this topic Insurance MEDICARE [facility] Care Teams Docent Coordinator Relationship Specialty Start Date End Date Zafar Reddy MD [address] [place] [id number] PCP - General 05/10/12
--- OUTSIDE RECORDS SUMMARY | 2025-01-17 00:50 | XMS_ITS | Patient Health Summary ---
Author Organization [facility] Address [address] [facility] [place] [address] Care Team Providers Care Armature Varnisher Name Role Phone Edy Aviles DO Primary Care Provider [phone] Note from [facility],non-owned Affiliates and Associated Physician Practices is amultiple site organization consisting of ambulatory clinics and hospital sitesin [place], [place], [place] and [place]. This disclosure is being madepursuant to the Care Everywhere program and may not contain all information available regarding this patient. Last updated 18.[facility] Allergies * Codeine(Urticaria,Nausea and/or Vomiting) -Medium [...] Comments Blood Pressure 148/57 10/26/2021 7:27 AM [facility] Pulse 95 10/26/2021 7:27 AM [facility] Temperature 36.8 C (98.3 F) 10/26/2021 7:27 AM [facility] Respiratory Rate 16 10/25/2021 10:58 PM [facility] Oxygen Saturation 100% 10/26/2021 7:27 AM [facility] Inhaled Oxygen Concentration 40% 10/25/2021 1 2:10 PM [facility] Weight 85.7 kg (189 lb) 07/08/2022 9:04 AM CDT Height 156.2 cm (5' 1.5 ) 07/08/2022 9:04 AM CDT Body Mass Index 35.13 07/08/2022 9:04 AM CDT Medical Devices Implanted Type Area Satellite Instruction Facilitator Device Identifier Shelf Expiration Date Model / Serial / Lot Pin Hlf 255mm 5mm Jtx Lng Ss 35mm Extfix Implanted:Qty: 2 on 10/11/2021 by Jovon Maloney DO at [facility] Left: [employer] [id number] / / Pin Hlf 40mm 5mm Jtx Lng Ti Ntrd Extfix Implanted:Qty: 2 on 10/11/2021 by Jovon Maloney DO at [facility] Left: [employer] [id number] / / Bar Extfix 200mm Jtx Cfbr Nonster Disp Implanted:Qty: 2 on 10/11/2021 by Jovon Maloney DO at [facility] Left: [employer] [id number] / / Screw 3.5mm 46mm Ft Hex Drv Nlckg Fly Implanted:Qty: 1 on 10/25/2021 by Jovon Maloney DO at [facility] Left: [employer]ia [employer] [id number] / / Screw 3.5mm 50mm Ft Nonlock Hex Drv Elb Implanted:Qty: 2 on 10/25/2021 by Jovon Maloney DO at [facility] Left: [employer] [id number] / / Screw 3.5mm 55mm Ft Slf-Tap Hex Lopro Implanted:Qty: 1 on 10/25/2021 by Jovon Maloney DO at [facility] Left: [employer] [id number] / / Screw 3.5mm 65mm T15 Lck Slf-Tap Tip Tpr Implanted:Qty: 3 on 10/25/2021 by Jovon Maloney DO at [facility] Left: [employer] [id number] / / Screw 3.5mm 70mm T15 Lck Slf-Tap Tip Tpr Implanted:Qty: 2 on 10/25/2021 by Jovon Maloney, DO at [facility] Left: [employer] [id number] / / Plate 5 Hl Lck Lopro Dist Blt Tip Tib Lt Implanted:Qty: 1 on 10/25/2021 by Jovon Maloney, DO at [facility] Left: [employer] [id number] / / Screw 3.5mm 65mm 2.2mm Mldir Lck Sq Drv Implanted:Qty: 1 on 10/25/2021 by Jovon Maloney, DO at [facility] Left: [employer] [id number] / / Screw 3.5mm 80mm Sq Drv Nonlock Lopro Implanted:Qty: 1 on 10/25/2021 by Jovon Maloney, DO at [facility] Left: [employer] [id number] / / Screw 3.5mm 75mm T15 Lck Slf-Tap Tip Tpr Implanted:Qty: 1 on 10/25/2021 by Jovon Maloney, DO at [facility] Left: [employer] [id number] / / Plate 5 Hl Lopro Lck Ulna Olcrn Dist 61 Implanted:Qty: 1 on 10/25/2021 by Jovon Maloney, DO at [facility] Left: [employer] [id number] / / Screw 3.5mm 34mm Ft Nonlock Hex Drv Elb Implanted:Qty: 1 on 10/25/2021 by Jovon Maloney, DO at [facility] Left: [employer] [id number] / / Screw 3.5mm 38mm Ft Slf-Tap Hex Lopro Implanted:Qty: 1 on 10/25/2021 by Jovon Maloney, DO at [facility] Left: [employer] [id number] / / Screw 3.5mm 40mm Ft Slf-Tap Hex Lopro Implanted:Qty: 1 on 10/25/2021 by Jovon Maloney, DO at [facility] Left: [employer] [id number] / / Explanted Type Area Satellite Instruction Facilitator Device Identifier Shelf Expiration Date Model / Serial / Lot Clamp Extfix Jtx 10.5mm Bar To Bar Mr Buitrago Explanted:Qty: 2 on 10/11/2021 at [facility] Left: [employer] [id number] / / Screw 3.5mm 55mm Ft Slf-Tap Hex Lopro Explanted:Qty: 1 on 10/25/2021 by Jovon Maloney DO at [facility] Left: [employer] 8150-37-055 / / Wire K 1.6mm 6in Hlf Bynt Pnt Ss Fx Explanted:Qty: 4 on 10/25/2021 by Jovon Maloney DO at [facility] Left: [employer] [id number] / / Screw 3.5mm 36mm Ft Slf-Tap Hex Lopro Explanted:Qty: 1 on 10/25/2021 by Jovon Maloney DO at [facility] Left: [employer] [id number] / / Procedures * DERMATOPATHOLOGY(Performed 02/23/2024) * [...] is included. Case Report Dermatopathology Report Case: [id number] Authorizing Provider: Israel Lang MD Collected: 02/23/2024 12:00 AM Ordering Location: [facility] - Received: 02/25/2024 06:55 AM DermPath Lab Pathologist: Maryanne Olmos MD Specimens: A) - Skin, right paranasal cheek B) - Skin, right cheek C) - Skin, right parietal scalp 1:41 PM [facility] NAMED [facility] DERMATOPATHOLOGY LABORATORY Final Diagnosis Specimen A. 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 SKIN, right parietal scalp: NEUROFIBROMA (D36.10) 1:41 PM [facility] NAMED [facility] DERMATOPATHOLOGY LABORATORY Clinical History A: R/O BCC vs other B: R/O BCC vs other C: R/O BCC 1:41 PM [facility] NAMED [facility] DERMATOPATHOLOGY LABORATORY Gross Description Specimen A: [...] five pieces in aggregate shave biopsy measuring [id number] mm. Jar 0. 1:41 PM [facility] NAMED [facility] DERMATOPATHOLOGY LABORATORY Microscopic Description Specimen A. [...] collagen is delicate and pale. 1:41 PM [facility] NAMED [facility] DERMATOPATHOLOGY LABORATORY Disclaimer An external and internal positive and negative controls are appropriate for the histochemical, immunohistochemical and immunofluorescence stain(s) in this case (if any), except where stated explicitly. The performance characteristics of the stain(s) cited in this report were developed and its performance characteristic determined by the Dermatopathology Laboratory at [facility], directed by Dr. Yessi Jackman. These tests need not be, and therefore are not, approved by the [place] Food and Drug Administration. The tests are used for clinical purposes. Billing Codes Specimen Charges Stain Charges 79592 [id number] 1 1 1 4 1:41 PM CDT [...] LAB - PATHOLOGY/CYTO LOGY ORDERABLES DERMATOPATHOLOGY LABORATORY [facility] - Department of Dermatology [address], [address] [phone] * XR KNEE LEFT 3VW (07/08/2022 9:02 AM CDT) Only the most recent of9 resultswithin the time period is included. Anatomical Region Laterality Modality Lower Extremity Radiographic Courtney ging 07/08/2022 9:33 AM CDT Impressions 07/08/2022 9:41 AM CDT IMPRESSION: Unchanged fracture alignment. > Dictated by Ramonita Hernandez M.D. (vice president compliance). I, Tramaine Ceron MD have personally reviewed and interpreted this examination/study. > Interpreting Provider: Tramaine Ceron MD on 07/08/2022 9:41 AM Narrative 07/08/2022 9:41 AM CDT PROCEDURE: XR KNEE LEFT 3VW, DATE/TIME OF EXAM: 07/08/2022 9:02 AM, LOCATION [facility] INDICATION: S82.142D: Closed fracture of left tibial [...] DATE/TIME OF EXAM: 07/08/2022 9:02 AM, LOCATION [facility] INDICATION: S82.142D: Closed fracture of left tibial [...] Dictated by Ramonita Hernandez M.D. (vice president compliance). I, Tramaine Ceron MD have personally reviewed and interpreted this examination/study. > Interpreting Provider: Tramaine Ceron MD on 07/08/2022 9:41 AM Jovon Maloney DO DIAGNOSTIC IMAGING O RDERABLES * (ABNORMAL) CBC W/O DIFFERENTIAL (10/26/2021 2:31 AM [facility]) Only the most recent of6 resultswithin the time period is included. WBC 12.2(H) 3.5 - 10.5 10 3/uL 10/26/2021 3:15 AM [facility] LABORATORY [facility] RBC 2.39(L) 3.80 - 5.20 10 6/uL 10/26/2021 3:15 AM [facility] Hemoglobin 7.0(L) 12.0 - 15.6 g/dL 10/26/2021 3:15 AM [facility] Hematocrit 21.7(L) 35.0 - 45.0 % 10/26/2021 3:15 AM [facility] MCV 90.8 80.7 - 98.3 fL 10/26/2021 3:15 AM [facility] MCH 29.3 26.7 - 34.0 pg 10/26/2021 3:15 AM [facility] MCHC 32.3 30.8 - 35.9 g/dL 10/26/2021 3:15 AM [facility] Platelet Count 508(H) 150 - 400 10 3/uL 10/26/2021 3:15 AM [facility] RDW-SD 45.7 36.0 - 50.0 fL 10/26/2021 3:15 AM [facility] RDW-CV 14.1 11.2 - 14.8 % 10/26/2021 3:15 AM [facility] MPV 8.9(L) 9.4 - 12.9 fL 10/26/2021 3:15 AM [facility] nRBC Absolute 0.00 0 10 3/uL 10/26/2021 3:15 AM [facility] nRBC Auto 0.0 0 /100 WBC 10/26/2021 3:15 AM [facility] Blood BLOOD SPECIMEN / Unknown Lab Venipuncture / Unknown 10/26/2021 2:31 AM [facility] 10/26/2021 3:[address] [facility] Jovon Maloney DO LAB - HEMATOLOGY ORD ERABLES Performing Organization Address City/State/[facility] Co de Phone Number [facility] [address] [place] [id number], [facility] [phone] * (ABNORMAL) BASIC METABOLIC PANEL (CALCIUM TOTAL) (10/26/2021 2:31 AM [facility]) Only the most recent of6 resultswithin the time period is included. BUN 14 7 - 26 mg/dL 10/26/2021 3:29 AM [facility] Creatinine 0.95 0.56 - 0.96 mg/dL 10/26/2021 3:29 AM [facility] Sodium 134(L) 136 - 145 mmol/L 10/26/2021 3:29 AM [facility] Potassium 4.2 3.5 - 4.5 mmol/L 10/26/2021 3:29 AM [facility] Chloride 102 98 - 107 mmol/L 10/26/2021 3:29 AM [facility] CO2 25 22 - 29 mmol/L 10/26/2021 3:29 AM [facility] Glucose 106 70 - 115 mg/dL 10/26/2021 3:29 AM [facility] Calcium 8.9 8.4 - 10.2 mg/dL 10/26/2021 3:29 AM [facility] Anion Gap 11 8 - 18 10/26/2021 3:29 AM [facility] BUN/Creatinine Ratio 15 7 - 23 10/26/2021 3:29 AM [facility] Osmolality Calculated 279 270 - 300 mOsm/kg 10/26/2021 3:29 AM [facility] eGFR by CKD-EPI 63(L) >=90 mL/min/1.7 3 m2 10/26/2021 3:29 AM [facility] Blood BLOOD SPECIMEN / Unknown Lab Venipuncture / Unknown 10/26/2021 2:31 AM [facility] 10/26/2021 3:01 AM [facility] Jovon Maloney DO LAB - CHEMISTRY LINCOLNE RADHA [facility] [address] [place] [address], [facility] [phone] * XR KNEE LEFT 2VW OR LESS (10/25/2021 12:05 PM [facility]) Only the most recent of2 resultswithin the time period is included. Anatomical Region Laterality Modality Lower Extremity Radiographic Courtney ging 10/25/2021 12:5 9 PM [facility] Impressions 10/25/2021 1:00 PM [facility] IMPRESSION: Internally fixated tibial plateau fracture. This report was electronically signed by TRAMAINE CERON MD on 10/25/2021 1:00 PM . Narrative 10/25/2021 1:00 PM [facility] Exam: XR KNEE LEFT 2VW History: S82.142A: [...] * FL JAQUELIN SURGERY (10/25/2021 11:36 AM [facility]) Only the most recent of2 resultswithin the time period is included. Narrative [facility] RADIOLOGY - 10/25/2021 11:37 AM [facility] Fluoroscopy was used for this exam in the OR. Please see the Operative report. Jovon Maloney DO FLUOROSCOPY ORDERABL ES [facility] RADIOLOGY * ETT LINE PERFORMABLE (10/25/2021 8:26 AM [facility]) Narrative Veto Guzman DO - 10/25/2021 8:26 AM [facility] Veto Guzman DO 10/25/2021 8:28 AM Endotracheal Tube Placement: Patient Location: OR. Procedure: intubation ([id number]). Procedure Section: Sedation: under general anesthesia. Indications [...] TYPE + SCREEN PANEL (10/25/2021 6:42 AM [facility]) Only the most recent of2 resultswithin the time period is included. [facility] Antibody Screen NEG 7:30 AM [facility] BLOOD BANK LAB ABO Rh O POS 10/25/2021 7:30 AM [facility] BLOOD BANK LAB Blood Bank BLOOD SPECIMEN / Unknown Venipuncture / Unknown 10/25/2021 6:42 AM [facility] 10/25/2021 6:51 AM [facility] Jovon Maloney DO LAB - BLOOD BANK ORD ERABLES [facility] BLOOD BANK LAB [address] [place] [address], [facility] [phone] * SARS-COV-2 (COVID-19) INTERNAL (10/12/2021 3:49 PM [facility]) [facility] COVID-19 PCR Not detected Not detected 10/13/2021 6:11 AM [facility] MICROBIOLOGY Microbiology SPECIMEN FROM NASOPHARYNGEAL STRUCTURE / Unknown Collection / Unknown 10/12/2021 3:49 PM [facility] 10/12/2021 4:54 PM [facility] Narrative [facility] MICROBIOLOGY - 10/13/2021 6:11 AM [facility] This nucleic acid amplification assay performance was validated by [facility]. This test has [...] Maloney DO LAB - MICROBIOLOGY O RDERABLES [facility] MICROBIOLOGY [address] [place] [address], [facility] [phone] * ETT LINE PERFORMABLE (10/11/2021 11:52 AM [facility]) Narrative Sloan Salcedo Anes Asst - 10/11/2021 11:52 AM [facility] Sloan Salcedo Anes Asst 10/11/2021 11:53 AM Endotracheal Tube Placement: Patient Location: OR. Intubation Event Date/Time: 10/11/2021 10:59 AM Procedure: intubation ([id number]). Procedure Section: Sedation: under general anesthesia. Indications [...] KNEE LEFT WO CONTRAST (10/10/2021 9:26 PM [facility]) Anatomical Region Laterality Modality Lower Extremity Computed Tomogra phy 10/10/2021 9:33 PM [facility] Impressions 10/11/2021 9:05 AM [facility] Impression: 1.Comminuted moderately displaced tibial plateau fracture involving the medial and lateral plateau articular surfaces. 2.Comminuted mildly displaced fibular head fracture. Report drafted by Oni Rowe (resident) IDr. TRAMAINE MD have personally reviewed and interpreted this examination/study. This report was electronically signed by TRAMAINE CERON MD on 10/11/2021 9:05 AM . Narrative 10/11/2021 9:05 AM [facility] Procedure Information DATE: 10/10/2021 9:28 PM EXAMINATION: [...] (COVID-19)+INFLU A+B PCR RAPID (10/10/2021 8:35 PM [facility]) COVID-19 PCR Not detected Not detected 10/10/20 9:01 PM [facility] Influenza A Rapid GABRIELA Not Detected Not Detected 10/10/2021 9:01 PM [facility] Influenza B GABRIELA Rapid Not Detected Not Detected 10/10/2021 9:01 PM [facility] Microbiology SPECIMEN FROM NASOPHARYNGEAL STRUCTURE / Unknown Collection / Unknown 10/10/2021 8:35 PM [facility] 10/10/2021 8:39 PM [facility] - 10/10/2021 9:01 PM [facility] Influenza assay performed by [employer]. [...] acid amplification assay performance was validated by [facility]. This test has been authorized by the [...] Maloney DO LAB - MICROBIOLOGY O RDERABLES [address] [address], [facility] [phone] * XR STRESS ANY JOINT (10/10/2021 8:31 PM [facility]) Anatomical Region Laterality Modality Lower Extremity, Upper Extremity Radiographic Imaging 10/11/2021 10:1 6 AM [facility] Impressions 10/11/2021 10:19 AM [facility] IMPRESSION: No change in alignment of the osseous structures of the ankle status post stress. Report dictated by Ramon Burns DO (vice president compliance) IDr. KIMI MD, FRCR have personally reviewed and interpreted this examination/study. This report was electronically signed by KIMI TELLO MD, FRCR on 10/11/2021 10:19 AM . Narrative 10/11/2021 10:19 AM [facility] EXAMINATION: XR STRESS ANY JOINT HISTORY: W11.XXXA: [...] dictated by Ramon Burns DO (vice president compliance) Dr. KIMI Mosley MD, FRCR have personally reviewedand interpreted this examination/study. This report was electronically signed by KIMI TELLO MD, FRROSALBA on 10/11/2021 10:19 AM . Lilliam Aguirre MD DIAGNOSTIC IMAGING O RDERABLES * XR FEMUR LEFT 2VW (10/10/2021 8:31 PM [facility]) Anatomical Region Laterality Modality Lower Extremity Radiographic Courtney ging 10/11/2021 10:1 0 AM [facility] Impressions 10/11/2021 10:26 AM [facility] IMPRESSION: 1.No acute osseous abnormality of the femur. 2.Redemonstrated lateral tibial condyle are fracture and proximal fibular fracture with large joint effusion. Report dictated by Ramon Burns DO (vice president compliance). Dr. KIMI Mosley MD, FRCR have personally reviewed and interpreted this examination/study. This report was electronically signed by KIMI TELLO MD, FRROSALBA on 10/11/2021 10:26 AM . Narrative 10/11/2021 10:26 AM [facility] EXAMINATION: XR FEMUR LEFT 2VW HISTORY: W11.XXXA: [...] dictated by Ramon Burns DO (vice president compliance). Dr. KIMI Mosley MD, FRCR have personally reviewedand interpreted this examination/study. This report was electronically signed by KIMI TELLO MD, FRCR on 10/11/2021 10:26 AM . Lilliam Aguirre MD DIAGNOSTIC IMAGING O RDERABLES * XR PELVIS 1 OR 2VW (10/10/2021 7:59 PM [facility]) Anatomical Region Laterality Modality Pelvis Radiographic Courtney ging 10/11/2021 10:0 4 AM [facility] Impressions 10/11/2021 10:52 AM [facility] IMPRESSION: No acute fracture identified. Report dictated by Ramon Burns DO (vice president compliance). Dr. KIMI Mosley MD, FRCR have personally reviewed and interpreted this examination/study. This report was electronically signed by KIMI TELLO MD, FRROSALBA on 10/11/2021 10:52 AM . Narrative 10/11/2021 10:52 AM [facility] EXAMINATION: XR PELVIS 1 OR 2VW HISTORY: [...] dictated by Ramon Burns DO (vice president compliance). I, Dr. KIMI TELLO MD, FRCR have personally reviewedand interpreted this examination/study. This report was electronically signed by KIMI TELLO MD, FRCR on 10/11/2021 10:52 AM . Lilliam Aguirre MD DIAGNOSTIC IMAGING O RDERABLES * BLOOD TYPE VERIFICATION (10/10/2021 7:08 PM [facility]) ABO Rh O POS 10/10/2021 8:0 2 PM [place] [facility] BLOOD BANK LAB Blood Bank BLOOD SPECIMEN / Unknown Lab Venipuncture / Unknown 10/10/2021 7:08 PM [facility] 10/10/2021 7:11 PM [facility] Lilliam Aguirre MD LAB - BLOOD BANK ORD ERABLES [facility] BLOOD BANK LAB [address] [place] [address], [facility] [phone] * XR HIP 2+ VW LEFT (10/10/2021 6:55 PM [facility]) Anatomical Region Laterality Modality Pelvis, Lower Extremity Radiogra phic Imaging 10/10/2021 7:17 PM [facility] Impressions 10/11/2021 8:48 AM [facility] IMPRESSION: 1.Fracture of the tibial condyles with involvement of the lateral tibial plateau and in the condylar eminence. There is depression of the lateral tibial plateau (approximately 9 mm). 2.Widening of lateral aspect of ankle joint is noted without definite fractures. Dictated by Andre Aguilar DO (vice president compliance). I, Dr. KIMI TELLO MD, [facility] have personally reviewed and interpreted this examination/study. This report was electronically signed by KIMI TELLO MD, FRCR on 10/11/2021 8:48 AM . Narrative 10/11/2021 8:48 AM [facility] EXAMINATION: XR ANKLE LEFT 3VW OR MORE, [...] MORE, XR KNEE LEFT 3VW, XR HIP [id number] OR MORE, XR TIBIA FIBULA LEFT 2VW [...] Dictated by Andre Aguilar DO (vice president compliance). Dr. KIMI Mosley MD, [facility] have personally reviewedand interpreted this examination/study. This report was electronically signed by KIMI TELLO MD, FR on 10/11/2021 8:48 AM . Lilliam Aguirre MD DIAGNOSTIC IMAGING O RDERABLES * XR ANKLE 3+ VW LEFT (10/10/2021 6:55 PM [facility]) Anatomical Region Laterality Modality Lower Extremity Radiographic Courtney ging 10/10/2021 7:17 PM [facility] Impressions 10/11/2021 8:48 AM [facility] IMPRESSION: 1.Fracture of the tibial condyles with involvement of the lateral tibial plateau and in the condylar eminence. There is depression of the lateral tibial plateau (approximately 9 mm). 2.Widening of lateral aspect of ankle joint is noted without definite fractures. Dictated by Andre Aguilar DO (vice president compliance). Dr. KIMI MosleyVIL, MD, FRROSALBA have personally reviewed and interpreted this examination/study. This report was electronically signed by KIMI TELLO MD, FRROSALBA on 10/11/2021 8:48 AM . Narrative 10/11/2021 8:48 AM [facility] EXAMINATION: XR ANKLE LEFT 3VW OR MORE, [...] MORE, XR KNEE LEFT 3VW, XR HIP [id number] OR MORE, XR TIBIA FIBULA LEFT 2VW [...] Dictated by Andre Aguilar DO (vice president compliance). Dr. KIMI Mosley MD, FRROSALBA have personally reviewedand interpreted this examination/study. This report was electronically signed by KIMI TELLO MD, FRCR on 10/11/2021 8:48 AM . Lilliam Aguirre MD DIAGNOSTIC IMAGING O RDERABLES * XR TIBIA FIBULA LEFT 2VW (10/10/2021 6:54 PM [facility]) Anatomical Region Laterality Modality Lower Extremity Radiographic Courtney ging 10/10/2021 7:17 PM [facility] Impressions 10/11/2021 8:48 AM [facility] IMPRESSION: 1.Fracture of the tibial condyles with involvement of the lateral tibial plateau and in the condylar eminence. There is depression of the lateral tibial plateau (approximately 9 mm). 2.Widening of lateral aspect of ankle joint is noted without definite fractures. Dictated by Andre Aguilar DO (vice president compliance). Dr. KIMI Mosley MD, FRROSALBA have personally reviewed and interpreted this examination/study. This report was electronically signed by KIMI TELLO MD, FRCR on 10/11/2021 8:48 AM . Narrative 10/11/2021 8:48 AM [facility] EXAMINATION: XR ANKLE LEFT 3VW OR MORE, [...] MORE, XR KNEE LEFT 3VW, XR HIP [id number] OR MORE, XR TIBIA FIBULA LEFT 2VW [...] Dictated by Andre Aguilar DO (vice president compliance). I, Dr. KIMI TELLO MD, [facility] have personally reviewedand interpreted this examination/study. This report was electronically signed by KIMI TELLO MD, FRCR on 10/11/2021 8:48 AM . Lilliam Aguirre MD DIAGNOSTIC IMAGING O RDERABLES * PT-INR [facility] (10/10/2021 6:49 PM [facility]) PT 12.1 12.1 - 14.8 Seconds 10/10/2021 7:38 PM [facility] INR 0.9 See Comment 10/10/2021 7:38 PM [facility] Comment:The suggested therap eutic range for standard coumadin (warfarin) therapy is an INR of 2.0-3.0. For high-risk patients (Mechanical Mitral Valve Prosthesis, etc.), the suggested prophylactic therapeutic range is an INR of 2.5-3.5. Blood BLOOD SPECIMEN / Unknown Venipuncture / Unknown 10/10/2021 6:49 PM [facility] 10/10/2021 7:28 PM [facility] Lilliam Aguirre MD LAB - COAGULATION OR DERABLES [facility] [address] [place] [address], [facility] [phone] * (ABNORMAL) CBC W AUTO DIFFERENTIAL (10/10/2021 6:48 PM [facility]) WBC 9.8 3.5 - 10.5 10 3/uL 10/10/2021 7:11 PM [place] [facility] RBC 4.02 3.80 - 5.20 10 6/uL 10/10/2021 7:11 PM [facility] Hemoglobin 11.9(L) 12.0 - 15.6 g/dL 10/10/2021 7:11 PM [facility] Hematocrit 37.4 35.0 - 45.0 % 10/10/2021 7:11 PM [facility] MCV 93.0 80.7 - 98.3 fL 10/10/2021 7:11 PM [facility] MCH 29.6 26.7 - 34.0 pg 10/10/2021 7:11 PM [facility] MCHC 31.8 30.8 - 35.9 g/dL 10/10/2021 7:11 PM [facility] Platelet Count 294 150 - 400 10 3/uL 10/10/2021 7:11 PM [facility] RDW-SD 46.0 36.0 - 50.0 fL 10/10/2021 7:11 PM [facility] RDW-CV 13.4 11.2 - 14.8 % 10/10/2021 7:11 PM [facility] MPV 9.9 9.4 - 12.9 fL 10/10/2021 7:11 PM [facility] nRBC Absolute 0.00 0 10 3/uL 10/10/2021 7:11 PM [facility] nRBC Auto 0.0 0 /100 WBC 10/10/2021 7:11 PM [facility] Neutrophils % 66.2 35.0 - 70.0 % 10/10/2021 7:11 PM [facility] Lymphocytes % 21.3 20.0 - 43.0 % 10/10/2021 7:11 PM [facility] Monocytes % 10.2 5.0 - 13.0 % 10/10/2021 7:11 PM [facility] Eosinophils % 1.7 0.0 - 6.0 % 10/10/2021 7:11 PM [facility] Basophil % 0.3 0.0 - 2.0 % 10/10/2021 7:11 PM [facility] Neutrophils Absolute 6.5 1.6 - 7.0 10 3/uL 10/10/2021 7:11 PM [facility] Lymphocyte Absolute 2.1 1.1 - 3.9 10 3/uL 10/10/2021 7:11 PM [facility] Monocytes Absolute 1.00 0.26 - 1.07 10 3/uL 10/10/2021 7:11 PM [facility] Eosinophils Absolute 0.17 0.00 - 0.47 10 3/uL 10/10/2021 7:11 PM [facility] Basophils Absolute 0.03 0.00 - 0.08 10 3/uL 10/10/2021 7:11 PM [facility] Immature Granulocytes % 0.3 0.0 - 1.0 % 10/10/2021 7:11 PM [facility] Immature Granulocytes Absolute 0.03 10/10/2021 7:11 PM [facility] Blood BLOOD SPECIMEN / Unknown Venipuncture / Unknown 10/10/2021 6:48 PM [facility] 10/10/2021 7:01 PM [facility] Lilliam Aguirre MD LAB - HEMATOLOGY ORD ERABLES Performing Organization Address [facility] Co de Phone Number [address] [address] [phone] * (ABNORMAL) COMPREHENSIVE METABOLIC PANEL (10/10/2021 6:48 PM [facility]) BUN 19 7 - 26 mg/dL 10/10/2021 7:25 PM [facility] Creatinine 1.18(H) 0.56 - 0.96 mg/dL 10/10/2021 7:25 PM [facility] Sodium 142 136 - 145 mmol/L 10/10/2021 7:25 PM [facility] Potassium 3.7 3.5 - 4.5 mmol/L 10/10/2021 7:25 PM [facility] Chloride 106 98 - 107 mmol/L 10/10/2021 7:25 PM [facility] CO2 22 22 - 29 mmol/L 10/10/2021 7:25 PM [facility] Glucose 99 70 - 115 mg/dL 10/10/2021 7:25 PM [facility] Calcium 9.9 8.4 - 10.2 mg/dL 10/10/2021 7:25 PM [facility] Protein Total 6.8 6.0 - 8.3 g/dL 10/10/2021 7:25 PM [facility] Albumin 3.6 3.4 - 5.0 g/dL 10/10/2021 7:25 PM [facility] Bilirubin Total 0.2 0.2 - 1.2 mg/dL 10/10/2021 7:25 PM [facility] Alkaline Phosphatase 93 40 - 150 U/L 10/10/2021 7:25 PM [facility] ALT 24 5 - 55 U/L 10/10/2021 7:25 PM [facility] AST 30 5 - 34 U/L 10/10/2021 7:25 PM [facility] Anion Gap 18 8 - 18 10/10/2021 7:25 PM [facility] BUN/Creatinine Ratio 16 7 - 23 10/10/2021 7:25 PM [facility] Osmolality Calculated 296 270 - 300 mOsm/kg 10/10/2021 7:25 PM [facility] Albumin/Globulin Ratio 1.1 1.1 - 2.3 10/10/2021 7:25 PM [facility] eGFR by CKD-EPI 48(L) >=90 mL/min/1.7 3 m2 10/10/2021 7:25 PM [facility] Blood BLOOD SPECIMEN / Unknown Venipuncture / Unknown 10/10/2021 6:48 PM [facility] 10/10/2021 7:01 PM [facility] Lilliam Aguirre MD LAB - CHEMISTRY JOCELYNN [facility] Organization Address City/State/[facility] Co de Phone Number [address] [address], [facility] [phone] * CULTURE MRSA (09/25/2014 9:07 AM [facility]) Culture MRSA Screen No Growth of Methicillin Resistant Staphylococcus aureus. [facility] Nasopharyngeal 09/25/2014 9: 07 AM [facility] 09/25/2014 3:16 PM [facility] Narrative [facility] - 09/26/2014 11:18 AM [facility] AshokSpecimen#[id number] Ashok Loc/Rm/Bed: OP SGPREOP// Historical Provider LAB - MICROBIOLOG Y ORDERABLES [facility] [address] [phone] Care Teams Armature Varnisher Relationship Specialty Start Date End Date Edy Aviles DO [address] [place] [address] PCP - General 06/17/22
--- OUTSIDE RECORDS SUMMARY | 2025-01-17 00:50 | XMS_ITS | Referral Summary ---
Author Organization [facility] Address [address] [place] [address] Care Team Providers Care Terrapin Fisher Name Role Phone Edy Avlies DO Primary Care Provider [phone] Source Comments [facility],non-owned Affiliates and Associated Physician Practices is amultiple site organization consisting of ambulatory clinics and hospital sitesin [place], [place]. This disclosure is being madepursuant to the Care Everywhere program and may not contain all information available regarding this patient. Last updated 18.[facility] Allergies Active Allergy Reactions Criticality Noted Date [...] Immunizations Name Administration Dates Next Due [employer] primary monoval ent 12+ yr 0.3mL Purple [...] Comments Blood Pressure 148/57 10/26/2021 7:27 AM [facility] Pulse 95 10/26/2021 7:27 AM [facility]PER[facility] Temperature 36.8 C (98.3 F) 10/26/2021 7:27 AM [facility] Respiratory Rate 16 10/25/2021 10:58 PM [facility] Oxygen Saturation 100% 10/26/2021 7:27 AM [facility] Inhaled Oxygen Concentration 40% 10/25/2021 1 2:10 PM [facility]PER[facility] Weight 85.7 kg (189 lb) 07/08/2022 9:04 [...] 3-4 weeks. Medical Devices Implanted Type Area Manager Plumbing Device Identifier Shelf Expiration Date Model / Serial / Lot Pin Hlf 255mm 5mm Jtx Lng Ss 35mm Extfix Implanted:Qty: 2 on 10/11/2021 by Jovon Maloney, DO at [facility] Left: [employer] [id number] / / Pin Hlf 40mm 5mm Jtx Lng Ti Ntrd Extfix Implanted:Qty: 2 on 10/11/2021 by Jovon Maloney, DO at [facility] Left: [employer] [id number] / / Bar Extfix 200mm Jtx Cfbr Nonster Disp Implanted:Qty: 2 on 10/11/2021 by Jovon Maloney, DO at [facility] Left: [employer] [id number] / / Screw 3.5mm 46mm Ft Hex Drv Nlckg Fly Implanted:Qty: 1 on 10/25/2021 by Jovon Maloney, DO at [facility] Left: [employer] 8150-37-046 / / Screw 3.5mm 50mm Ft Nonlock Hex Drv Elb Implanted:Qty: 2 on 10/25/2021 by Jovon Maloney, DO at [facility] Left: [employer] 8150-37-050 / / Screw 3.5mm 55mm Ft Slf-Tap Hex Lopro Implanted:Qty: 1 on 10/25/2021 by Jovon Maloney, DO at [facility] Left: [employer] 8150-37-055 / / Screw 3.5mm 65mm T15 Lck Slf-Tap Tip Tpr Implanted:Qty: 3 on 10/25/2021 by Jovon Maloney, DO at [facility] Left: [employer] 8161-35-065 / / Screw 3.5mm 70mm T15 Lck Slf-Tap Tip Tpr Implanted:Qty: 2 on 10/25/2021 by Jovon Maloney, DO at [facility] Left: [employer] [id number] / / Plate 5 Hl Lck Lopro Dist Blt Tip Tib Lt Implanted:Qty: 1 on 10/25/2021 by Jovon Maloney, DO at [facility] Left: [employer] 8162-35-705 / / Screw 3.5mm 65mm 2.2mm Mldir Lck Sq Drv Implanted:Qty: 1 on 10/25/2021 by Jovon Maloney, DO at [facility] Left: [employer] [id number] / / Screw 3.5mm 80mm Sq Drv Nonlock Lopro Implanted:Qty: 1 on 10/25/2021 by Jovon Maloney, DO at [facility] Left: [employer] 1312-18-080 / / Screw 3.5mm 75mm T15 Lck Slf-Tap Tip Tpr Implanted:Qty: 1 on 10/25/2021 by RevJovon roa DO at [facility] Left: [employer] 8161-35-075 / / Plate 5 Hl Lopro Lck Cha Marquez Dist 61 Implanted:Qty: 1 on 10/25/2021 by Jovon Maloney DO at [facility] Left: [employer] [id number] / / Screw 3.5mm 34mm Ft Nonlock Hex Drv Elb Implanted:Qty: 1 on 10/25/2021 by Jovon Maloney DO at [facility] Left: [employer] 8150-37-034 / / Screw 3.5mm 38mm Ft Slf-Tap Hex Lopro Implanted:Qty: 1 on 10/25/2021 by Jovon Maloney DO at [facility] Left: [employer] 8150-37-038 / / Screw 3.5mm 40mm Ft Slf-Tap Hex Lopro Implanted:Qty: 1 on 10/25/2021 by Jovon Maloney DO at [facility] Left: [employer] 8150-37-040 / / Explanted Type Area Manager Plumbing Device Identifier Shelf Expiration Date Model / Serial / Lot Clamp Extfix Jtx 10.5mm Bar To Bar Mr Sf Explanted:Qty: 2 on 10/11/2021 at [facility] Left: [employer] [id number] / / Screw 3.5mm 55mm Ft Slf-Tap Hex Lopro Explanted:Qty: 1 on 10/25/2021 by Jovon Maloney DO at [facility] Left: [employer] 8150-37-055 / / Wire K 1.6mm 6in Hlf Bynt Pnt Ss Fx Explanted:Qty: 4 on 10/25/2021 by Jovon Maloney DO at [facility] Left: [employer] [id number] / / Screw 3.5mm 36mm Ft Slf-Tap Hex Lopro Explanted:Qty: 1 on 10/25/2021 by Jovon Malonye DO at [facility] Left: [employer] [id number] / / Procedures Procedure Name Priority Date/Time Associated Diagnosis Comments BASIC METABOLIC PANEL (CALCIUM TOTAL) Routine 10/26/2021 2:31 AM [facility] Closed fracture of left tibial plateau, initial encounter from Last 3 Months or Most Recently Relevant to Health Maintenance Results * (ABNORMAL) BASIC METABOLIC PANEL (CALCIUM TOTAL) (10/26/2021 2:31 AM TERRITORY SUPERVISOR) BUN 14 7 - 26 mg/dL 10/26/2021 3:29 AM [facility] Creatinine 0.95 0.56 - 0.96 mg/dL 10/26/2021 3:29 AM [facility] Sodium 134(L) 136 - 145 mmol/L 10/26/2021 3:29 AM [facility] Potassium 4.2 3.5 - 4.5 mmol/L 10/26/2021 3:29 AM [facility] Chloride 102 98 - 107 mmol/L 10/26/2021 3:29 AM [facility] CO2 25 22 - 29 mmol/L 10/26/2021 3:29 AM [facility] Glucose 106 70 - 115 mg/dL 10/26/2021 3:29 AM [facility] Calcium 8.9 8.4 - 10.2 mg/dL 10/26/2021 3:29 AM [facility] Anion Gap 11 8 - 18 10/26/2021 3:29 AM [facility] BUN/Creatinine Ratio 15 7 - 23 10/26/2021 3:29 AM [facility] Osmolality Calculated 279 270 - 300 mOsm/kg 10/26/2021 3:29 AM [facility] eGFR by CKD-EPI 63(L) >=90 mL/min/1.7 3 m2 10/26/2021 3:29 AM [facility] Blood BLOOD SPECIMEN / Unknown Lab Venipuncture / Unknown 10/26/2021 2:31 AM T[facility]IT[facility] SUPERVISOR 10/26/2021 3:01 AM [facility] Jovon Maloney DO LAB - CHEMISTRY JOCELYNN GARCIA [facility] [address] [place] [address], [facility] [phone] from Last 3 Months or Most Recently Relevant to Health Maintenance Advance Directives * Full Code (Latest Code Status on File) Date Activated Date Inactivated Comments 10/25/2021 1:30 PM 10/26/2021 1:32 PM * Full Code Date Activated Date Inactivated Comments 10/11/2021 12:36 PM 10/15/2021 3:44 PM Care Teams Terrapin Fisher Relationship Specialty Start Date End Date Edy Aviles DO [address] [place] [address] PCP - General 06/17/22
--- OUTSIDE RECORDS SUMMARY | 2025-01-17 00:50 | XMS_ITS | Clinical Summary ---
Author Organization [facility] [address] Address [address] [place] [address] Care Team Providers Care Heat Treat Technician Name Role Phone Per Samson MD Primary Care Provider [phone] Coretta Childers MD Unavailable [phone] Tima Henson MD Unavailable [phone] Allergies Active Allergy Reactions Criticality Noted Date [...] mouth 2 (two) times a day Active dkrkbuti-dvm-CQ-ly copen-lutein 0.4-300-250 mg-mcg-mcg tabletIndications: Vitamin Deficiency Prevention [...] 08/28/2023 Assessment & Plan (09/21/2023 9:12 AM INTERNAL INVESTIGATOR): She is doing pretty well. Feels like [...] 0 06/01/2023 Body mass index 40.0-44.9, adult ([facility]) 06/01 Sleep-disordered breathing 09/07/2022 Status post placement of implantable loop record er 03/07/2022 Overview (03/07/2022): MobStac Bio-monitor III Loop Recorder. Dx; Syncope, PSVT, AT, RVOT VT s/p ablation. DOI 03/05/2022-[facility]. Yeelionronik remote monitoring. Dizziness 08/19/2021 Lower extremity edema [...] (10/26/2020): Added automatically from request for surgery [id number] Migraine 08/10/2020 Assessment & Plan (08/10/2020 2:22 [...] neuralgia. 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 Assessment & Plan (10/02/2020 1:29 PM INTERNAL INVESTIGATOR): Ms. Palma continues to do well clinically after posterior lumbar decompression fusion at L4-5. She has good alignment. There is no lucency around the hardware. We will continue to follow this over time. Assessment & Plan (11/30/2019 1:51 PM INTERNAL INVESTIGATOR): Ms. Palma reports persistent numbness in her [...] (05/20/2019): Added automatically from request for surgery [id number] Assessment & Plan (01/22/2023 12:27 PM CDT): [...] physician. Assessment & Plan (01/08/2021 12:53 PM INTERNAL INVESTIGATOR): Ms. Palma does not have pain referable [...] time. Assessment & Plan (10/02/2020 1:29 PM INTERNAL INVESTIGATOR): Ms. Palma was improved after cervical decompression [...] hour to stretch. FOLLOW UP APPT: With MANAGER APPLICATION in 4 weeks with AP/LAT Cervical spine films. Assessment & Plan (11/24/2018 11:40 AM INTERNAL INVESTIGATOR): Patient has new onset symptoms of her [...] patient to schedule on her own at [facility]. We will await the CD to be mailed to our office for Dr. Palmer to review and provide further recommendations. She is to continue the same activity restrictions as outlined prior to surgery. Neuropathic pain 11/24/2018 Assessment & Plan (11/24/2018 11:42 AM INTERNAL INVESTIGATOR): For her neuropathic pain and would have [...] (12/16/2018): Added automatically from request for surgery [id number] Cervical spinal stenosis 09/27/2018 Overview (09/27/2018): Added automatically from request for surgery [id number] HNP (herniated nucleus pulposus), lumbar 07/13/2018 03/02/2019 Overview (07/13/2018): Added automatically from request for surgery [id number] Encounters Date Type Department Care Team Description 01/10/2025 8:00 AM INTERNAL INVESTIGATOR Office Visit [facility] Cardiology [address] [place] [address] [place] [phone] Jessica Shoemaker NP Unintended weight loss; Status post placement of implantable loop recorder; Malignant neoplasm metastatic to bone (HCC) 12/26/2024 7:45 AM INTERNAL INVESTIGATOR Ancillary Procedure [facility] Cardiology [address] [place] [address] [place], [place] [address] [place] [address] Syncope and collapse (Primary Dx); NICM (nonischemic cardiomyopathy) (HCC); NSVT (nonsustained ventricular tachycardia) (HCC); RVOT ventricular tachycardia (HCC); Paroxysmal supraventricular tachycardia; Status post placement of implantable loop recorder 11/25/2024 Telephone [facility] Cardiology [address] [place] [address] [place] [phone] Jessica Shoemaker NP 11/18/2024 Orders Only [facility] Cardiology [address] [place] [address] [place], [place] [address] [phone] Vy Pierce MD Status post placement of implantable loop recorder (Primary Dx); Paroxysmal supraventricular tachycardia; History of radiofrequency ablation (RFA) procedure for cardiac arrhythmia; Syncope and collapse; RVOT ventricular tachycardia (HCC) 11/14/2024 9:15 AM INTERNAL INVESTIGATOR Ancillary Procedure [facility] Cardiology [address] [place] [phone] Status post placement of implantable loop recorder (Primary Dx); NICM (nonischemic cardiomyopathy) (HCC); NSVT (nonsustained ventricular tachycardia) (HCC) 10/28/[address] [address] Jessica Shoemaker NP 10/27/2024 1:00 PM INTERNAL INVESTIGATOR Ancillary Procedure [address] [address] Syncope and collapse (Primary Dx); NICM (nonischemic cardiomyopathy) (HCC); NSVT (nonsustained ventricular tachycardia) (HCC); Status post placement of implantable loop recorder; RVOT ventricular tachycardia (HCC); Paroxysmal supraventricular tachycardia 10/27/2024 Orders Only [facility] Cardiology [address] [place] [address] [address] [place] [phone] Jessica Shoemaker NP Dizziness of unknown etiology 10/26/[address] [place] [phone] Vy Pierce MD 10/19/2024 Orders Only [facility] Health Information Management [address] [place] [address] Jessica Shoemaker NP from Last 3 Months Immunizations Immunization Administration [...] on file Legal Sex Female 11:06 AM INTERNAL INVESTIGATOR Gender Identity Not on file Sexual Orientation Not on file Obstetrics History Last Filed Vital Signs Vital Sign Reading Time Taken Comments Blood Pressure 134/78 01/10/2025 8:00 AM INTERNAL INVESTIGATOR Pulse 108 01/10/2025 8:00 AM INTERNAL INVESTIGATOR Temperature 36.4 C (97.5 F) 09/07/2023 10:05 AM CDT Respiratory Rate 18 09/15/2023 9:25 AM INTERNAL INVESTIGATOR Oxygen Saturation 98% 01/10/2025 8:00 AM INTERNAL INVESTIGATOR Inhaled Oxygen Concentration - - Weight 69.9 kg (154 lb 3.2 oz) 01/10/2025 8:00 A M INTERNAL INVESTIGATOR Height 154.9 cm (5' 1 ) 01/10/2025 8:00 AM INTERNAL INVESTIGATOR Body Mass Index 29.14 01/10/2025 8:00 AM INTERNAL INVESTIGATOR Plan of Treatment Health Maintenance Due Date [...] Completed 01/24/2022 Medical Devices Implanted Type Area Denitrator Device Identifier Shelf Expiration Date Model / Serial / Lot Loop Recorder Biotronik Biomonitor Iii-Left Upper Chest Chest Knee Arthroplasty Right: Knee Left Lower Leg Hardware From Fracture Left: Leg [employer]ocon Inc Os-201 Hemasorb Spatula Wax 2gm Bone Sterile - [id number] Implanted:Qty: 1 on 10/15/2018 by Elvin Palmer MD at [facility] N/A: Spine Cervical [employer] Inc 10/08/2020 OS-201 / / [id number] [employer] 3d Cervical [id number] 7 Deg - [id number] Implanted:Qty: 1 on 10/15/2018 by Elvin Palmer MD at [facility] N/A: Spine Cervical Core Link [id number] 12/02/2022 [id number] / / [id number] Core Link Anodyne 12mm Level 1 Spine Cervical Anterior Plate Bone - [id number] Implanted:Qty: 1 on 10/15/2018 by Elvin Palmer MD at [facility] N/A: Spine Cervical Core Link / / Core Link [id number] Anodyne 4mm 14mm Variable Angle Self Tap Spine Cervical Screw - [id number] Implanted:Qty: 4 on 10/15/2018 by Elvin Palmer MD at [facility] N/A: Spine Cervical Core Link [id number] / / Screw Bone Biased Angle L14 Mm Od3.5 Mm Cephelad Caudal Nonsterile Posterior Occipital Cervical Thoracic System 3500 Series - [id number] Implanted:Qty: 4 on 01/20/2019 by Elvin Palmer MD at [facility] N/A: Spine Cervical Core Link [id number] / / Screw Set Spinal 3500 Series - [id number] Implanted:Qty: 4 on 01/20/2019 by Elvin Palmer MD at [facility] N/A: Spine Cervical Core Link 27357-48 / / Core Link [id number] [place] 3.5mm 50mm Line Prebent Jin Spinal Nonsterile 3500 Series - [id number] Implanted:Qty: 1 on 01/20/2019 by Elvin Palmer MD at [facility] N/A: Spine Cervical Core Link [id number] / / Core Link [id number] [place] Screw Set 5500 Series - Sna - [id number] Implanted:Qty: 4 on 06/20/2019 by Elvin Palmer MD at [facility] N/A: Back Core Link 26949-07 / NA / Core Link [id number] [place] 5.5mm 35mm Line Prebent Jin Spinal Nonsterile 5500 Series - Sns - [id number] Implanted:Qty: 2 on 06/20/2019 by Elvin Palmer MD at [facility] N/A: Back Core Link [id number] / NS / [employer] [id number] Inqu Paste Mix Plus Transistor Tester 10cc Bone Graft Hyaluronic Acid Poly - Sna - [id number] Implanted:Qty: 1 on 06/20/2019 by Elvin Palmer MD at [facility] N/A: Back [employer] [id number] 01/19/2021 [id number] / NA / [id number] Core Link 15441-95 [place] 6.5mm 40mm Spine Pedicle Screw Bone 5500 Series - Sna - [id number] Implanted:Qty: 4 on 06/20/2019 by Elvin Palmer MD at [facility] N/A: Back Core Link [id number] / NA / Cerapedics Inc 700-025 I Factor Allograft Putty Syringe Graft 2.5cc Bone - [id number] Implanted:Qty: 1 on 11/26/2020 by Elvin Palmer MD at [facility] N/A: Spine Cervical [employer] Inc 09/08/2023 700-025 / / [id number] [employer] 3d Cervical 14.8d45x3xm 7 Deg - [id number] Implanted:Qty: 1 on 11/26/2020 by Elvin Palmer MD at [facility] N/A: Spine Cervical Core Link 10/25/2024 [id number] / / [id number] Core Link Anodyne 12mm Level 1 Spine Cervical Anterior Plate Bone - [id number] Implanted:Qty: 1 on 11/26/2020 by Elvin Palmer MD at [facility] N/A: Spine Cervical Core Link / / Core Link Anodyne 4mm 14mm Variable Angle Self Tap Spine Cervical Screw - [id number] Implanted:Qty: 4 on 11/26/2020 by Elvin Palmer MD at [facility] N/A: Spine Cervical Core Link [id number] / / Procedures Procedure Name Priority Date/Time Associated Diagnosis Comments DEVICE CHECK - REMOTE Routine 12/26/2024 9:15 AM INTERNAL INVESTIGATOR NICM (nonischemic cardiomyopathy) (HCC) NSVT (nonsustained ventricular tachycardia) (HCC) DEVICE CHECK - REMOTE Routine 11/18/2024 12:03 PM INTERNAL INVESTIGATOR NICM (nonischemic cardiomyopathy) (HCC) NSVT (nonsustained ventricular tachycardia) (HCC) DEVICE CHECK - REMOTE Routine 10/27/2024 6:13 PM INTERNAL INVESTIGATOR NICM (nonischemic cardiomyopathy) (HCC) NSVT (nonsustained ventricular tachycardia) (HCC) SCAN - RADIOLOGY/IMAGING 10/19/2024 HEPATITIS C ANTIBODY STAT 10/15/2018 11:20 AM INTERNAL INVESTIGATOR from Last 3 Months or Most Recently Relevant to Health Maintenance Results * DEVICE CHECK - REMOTE (12/26/2024 9:15 AM INTERNAL INVESTIGATOR) Anatomical Region Laterality Modality Other Narrative 12/29/2024 1:37 PM INTERNAL INVESTIGATOR MobStac Bio-monitor III Loop Recorder. Dx; Syncope, PSVT, AT, RVOT VT s/p ablation. DOI 03/05/2022-[facility]. Yeelionronik remote monitoring. Routine ILR remote. Normal device [...] scanned report. BioTronik remote f/u 02/06/2025. Shelley Looney, LARISSA Vy Pierce MD [facility] PRO CEDURES Final Result * DEVICE CHECK - REMOTE (11/18/2024 12:03 PM INTERNAL INVESTIGATOR) Anatomical Region Laterality Modality Other Narrative 12/08/2024 3:50 PM INTERNAL INVESTIGATOR Biotronik lllm implanted on March 05, 2022 [...] Continue to monitor remotely. Bandar Jordan Device Electric Range Preparer Vy Pierce MD [facility] C[facility] PRO CEDURES Final Result * DEVICE CHECK - REMOTE (10/27/2024 6:13 PM INTERNAL INVESTIGATOR) Anatomical Region Laterality Modality Other Narrative 10/28/2024 8:21 AM INTERNAL INVESTIGATOR YeelionroniMetropolitan App Bio-monitor III Loop Recorder. Dx; Syncope, PSVT, AT, RVOT VT s/p ablation. DOI 03/05/2022-[facility]. Biotronik remote monitoring. Unscheduled ILR [...] Region Laterality Modality Other us Jessica Shoemaker MANAGER APPLICATION Final Res ult * Hepatitis C antibody (10/15/2018 11:20 AM INTERNAL INVESTIGATOR) Hep C Ab Non-Reactiv e Non-Reactiv e [facility] Blood specimen (specimen) 10/15/2018 11:20 AM INTERNAL INVESTIGATOR 10/15/2018 11:41 AM INTERNAL INVESTIGATOR Narrative [facility] - 10/15/2018 12:25 PM INTERNAL INVESTIGATOR us Notinfile Unknown LAB MICROBIOLOGY - GENERAL ORD ERABLES Final Result [facility] [address] Department [place] [address] from Last 3 Months or Most Recently Relevant to Health Maintenance Insurance MEDICARE [employer] [facility] Address: [address] [address] [employer] MEDICARE [employer] SENIOR SUPPLEMENT Advance Directives For more information, please contact: [phone] * Full Code (Latest Code Status on File) Date Activated Date Inactivated Comments 09/07/2023 10:10 AM 09/07/2023 2:44 PM * Full Code Date Activated Date Inactivated Comments 06/20/2019 12:01 PM 06/20/2019 6:34 PM * Full Code Date Activated Date Inactivated Comments 10/15/2018 2:08 PM 10/15/2018 4:39 PM * Full Code Date Activated Date Inactivated Comments 07/16/2018 2:30 PM 07/16/2018 6:36 PM Care Teams Heat Treat Technician Relationship Specialty Start Date End Date Per Samson MD PCP - General Family Practice 06/01/23 Coretta Childers MD Consulting Physician Cardiology 08/28/23 Tima Henson MD [address] [place] [address] Consulting Physician Otolaryngology 08/28/23
--- OUTSIDE RECORDS SUMMARY | 2025-01-17 00:50 | XMS_ITS | Encounter Summary ---
Author Organization [facility] Address [address] [place] [address] Care Team Providers Care Ad Setter Name Role Phone Zafar Reddy MD Primary Care Provider [phone] Sung Mullen MD Primary Care Provider [phone] Zafar Reddy MD Primary Care Provider [phone] Sung Mullen MD Primary Care Provider [phone] Zafar Reddy MD Primary Care Provider [phone] Sung Mullen MD Primary Care Provider [phone] Edy Aviles DO Primary Care Provider [phone] Per Samson MD Primary Care Provider [phone] Coretta Childers MD Unavailable [phone] Tima Henson MD Unavailable [phone] Encounter Details Date Type Department Care Team (Late st Contact Info) Description 03/13/2017 Orders Only [facility] ProviderKamran MD [address] [place] [address] Social History Tobacco Use Types Packs/Day Years Used Date Smoking Tobacco: Every Day Alcohol Use Standard Drinks/Week Comments No 0 (1 standard drink = 0.6 oz pur e alcohol) Comments Unknown Sex and Gender Information Value Date Recorded Sex Assigned at Not on file Legal Sex Female 11:06 AM TAX SERVICES SPECIALIST Gender Identity Not on file Sexual [...] on filedocumented in this encounter Care Teams Ad Setter Relationship Specialty Start Date End Date Zafar Reddy MD [address] [place] [address] PCP - General 06/10/12 11/12/20 Sung Mullen MD [address] [address] PCP - General 11/13/20 11/15/20 Zafar Reddy MD [address] [place] [address] PCP - General 11/16/20 11/22/20 Sung Mullen MD [address] [place] [address] PCP - General 11/23/20 11/25/20 Zafar Reddy MD [address] [place] [address] PCP - General 11/26/20 05/20/21 Sung Mullen MD [address] [place] [address] PCP - General Internal Medicine 05/21/21 06/04/22 Edy Aviles DO [address] [place] [address] PCP - General Internal Medicine 06/05/22 05/31/23 Per Samson MD [address] [place] [address] PCP - General Family Practice 06/01/23 [facility] [address] [place] [address] Consulting Physician Cardiology 08/28/23 Tima Henson MD [address] [address] Consulting Physician Otolaryngology 08/28/23 documented as of this encounter
[2025-01-17 11:43] VITALS: BP 144/65; PULSE 87; RESP 18; TEMP 36.7; O2SAT 98
[2025-01-17] MEDS: LACTATED RINGERS 1,000 ML 150 ML IV CONT (12:18)
--- NOTE | 2025-01-17 12:46 | P.HP_ITS ---
History of Present Illness History of Present Illness Consent: Risks, benefits, and alternatives have been discussed and questions answered. Patient agrees to proceed with procedure. Chief complaint: Epigastric pain, Esophageal web,GERD Narrative: Frannie Palma is a 69 year old female here for egd, she was diagnosed with multiple bone lesions with left lung nodule left hilar and mediastinal lymphadenopathy associated with hypodense lesions in the liver. This was followed by CT-guided biopsies from a lytic lesion on the right rib which was consistent with metastatic carcinoma of unknown primary. On further questioning, patient gives me history of difficulty in swallowing associated with choking sensation on and off for last several months. 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46 no issue since with an EF of 69% Esophageal web Diverticulitis Vaginal fistula Insomnia Anxiety Hypertension Neuropathy Rosacea Migraine Herniated disc Headache Depression Osteoporosis Surgical History Surgical History History of lumbar surgery (06/2019) History of left salpingo-oophorectomy for benign cyst History of colonoscopy with polypectomy History of cervical spinal surgery History of cardiac radiofrequency ablation (2008) Ablation x3 for atrial tachycardia and right ventricle outflow tract tachycardia done at [facility] History of nasal surgery History of foot surgery (2015) repair of torn ligament in right foot History of knee replacement procedure of right knee (09/2014) revision-poly exchange 06/11/2020 History of hemorrhoidectomy (10/2012) History of (04/2001) Family History Family History Father Cerebrovascular accident Family history of heart disease in male family member before age 55 Hypertension Family history of lung cancer Sibling Family history of heart disease in male family member before age 55 Mother Cancer Other Family history of cardiovascular disease Social History Social History (Updated 01/16/25 @ 10:[address] [facility]) Social History: Surrogate medical decision maker: Dio Andrade, son. Code status: Full code. Smoking packs per day: 0.5 Smoking cigarettes per day: 10.0 Years smoked: 50 Smoking pack-years: 25.00 Smoking status: Current every day smoker Tobacco type: cigarettes Second hand tobacco smoke exposure: No Alcohol intake: never Substance use: never Substance use type: does not use Do You Feel Safe in your Home?: Yes Lack of Transportation: No Lack of Food: Never True Current Housing: I Have Housing Concerned About Future Housing: No Difficulty Paying Gas/Electric Bills: No Difficulty Paying for Meds: No Currently Unemployed: No Education: Decline to Answer Difficulty w/ Childcare or Family Care: No Living arrangements: with family Additional living arrangements comments: . Spiritual care concerns: No Meds Home Medications and Allergies Home Medications ?Medication ?Instructions ?Recorded ?Confirmed ?Type thuaxkkt-cqh-jgtwo acid 0.4 1 tablet PO DAILY 01/12/20 01/17/25 History mg-lycopene 300 mcg-lutein 250 mcg tablet (Centrum Silver) cyclosporine 0.05 % eye drops in a 1 drp EACH EYE Q12H 06/13/21 01/17/25 History dropperette (Restasis) mineral oil 15 ml PO DAILY 05/19/22 01/17/25 History polyethylene glycol 3350 17 gram 17 g PO DAILY 05/19/22 01/17/25 History oral powder packet (Miralax) bumetanide 1 mg tablet 2 mg PO DAILY 12/30/23 01/17/25 History atorvastatin 20 mg tablet See Rx Instructions .Route 11/03/24 01/17/25 Rx .COMPLEX #90 tabs calcium 600 mg (as carbonate)-vit 1 tablet PO DAILY 11/16/24 01/17/25 History D3 20 mcg (800 unit) chewable tablet (Caltrate plus D) tramadol 50 mg tablet 50 mg PO Q8H PRN pain #90 tabs 11/29/24 01/16/25 Rx potassium chloride 20 mEq 20 meq PO BID 12/09/24 01/17/25 History tablet,extended release psyllium husk 3.4 gram/5.4 gram 1 tbsp PO DAILY 12/09/24 01/16/25 History oral powder (Metamucil) ciprofloxacin HCl 500 mg tablet 500 mg PO BID 10 days #20 tabs 01/11/25 01/17/25 Rx metronidazole 500 mg tablet 500 mg PO BID 10 days #20 tabs 01/11/25 01/17/25 Rx metolazone 2.5 mg tablet 2.5 mg PO DAILY 01/16/25 01/17/25 History omeprazole 40 mg capsule,delayed See Rx Instructions .Route 01/16/25 01/17/25 Rx release .COMPLEX #180 caps Allergies Allergy/AdvReac Type Severity Reaction Status Date / Time codeine Allergy Intermediate Hives Verified 01/16/25 10:35 Vital Signs Vital Signs - 24 hr 01/17/25 11:43 Temperature 98.1 F Pulse Rate 87 Respiratory Rate 18 Blood Pressure 144/65 H Pulse Oximetry 98 Oxygen Delivery Room Air Exam Const: General: comfortable and no acute distress HENMT: Face/Nose/Sinus: Normal nares present Eyes: General: appearance normal, both eyes and all related structures Neck: Neck: no JVD Resp: Auscultation: clear to auscultation bilaterally Cardio: Rate: regular rate GI: Inspection: non-distended GI Palp: Yes Soft to palpation Skin: General skin exam: normal color Neuro: Speech: normal speech Psych: Mental Status: mental status grossly normal Assessment and Plan Assessment and plan (1) Choking: Code(s): T17.308A - Unspecified foreign body in larynx causing other injury, initial encounter Status: Acute Assessment and Plan: egd (2) Carcinoma of unknown primary: Code(s): C80.1 - Malignant (primary) neoplasm, unspecified Status: Acute Assessment and Plan: by hem-onc (3) Metastasis to bone: Code(s): C79.51 - Secondary malignant neoplasm of bone Status: Acute
--- NOTE | 2025-01-17 12:47 | WPDANESEPPF ---
Anes - Initial Pre Proc Eval Procedure: Operation Date: 01/17/25 13:30 Proposed Procedures p Esophagogastroduodenoscopy - Brian Tsai MD Date/Time: 01/17/25 12:47 Surgeon: Brian Tsai MD Pre Op Diagnosis: Epigastric pain, Esophageal web,GERD Patient Data Age: 69 Gender: F Height: 1.55 m Weight: 72 kg Last Vital Signs Temp 36.7 C 01/17/25 11:43 Pulse 87 01/17/25 11:43 Resp 18 01/17/25 11:43 BP 144/65 H 01/17/25 11:43 Pulse Ox 98 01/17/25 11:43 O2 Del Method Room Air 01/17/25 11:43 Allergies Allergy/AdvReac Type Severity Reaction Status Date / Time codeine Allergy Intermediate Hives Verified 01/16/25 10:35 Home Medications ?Medication ?Instructions ?Recorded ?Confirmed ?Type qrfvzhos-yxm-mgcms acid 0.4 1 tablet PO DAILY 01/12/20 01/17/25 History mg-lycopene 300 mcg-lutein 250 mcg tablet (Centrum Silver) cyclosporine 0.05 % eye drops in a 1 drp EACH EYE Q12H 06/13/21 01/17/25 History dropperette (Restasis) mineral oil 15 ml PO DAILY 05/19/22 01/17/25 History polyethylene glycol 3350 17 gram 17 g PO DAILY 05/19/22 01/17/25 History oral powder packet (Miralax) bumetanide 1 mg tablet 2 mg PO DAILY 12/30/23 01/17/25 History atorvastatin 20 mg tablet See Rx Instructions .Route 11/03/24 01/17/25 Rx .COMPLEX #90 tabs calcium 600 mg (as carbonate)-vit 1 tablet PO DAILY 11/16/24 01/17/25 History D3 20 mcg (800 unit) chewable tablet (Caltrate plus D) tramadol 50 mg tablet 50 mg PO Q8H PRN pain #90 tabs 11/29/24 01/16/25 Rx potassium chloride 20 mEq 20 meq PO BID 12/09/24 01/17/25 History tablet,extended release psyllium husk 3.4 gram/5.4 gram 1 tbsp PO DAILY 12/09/24 01/16/25 History oral powder (Metamucil) ciprofloxacin HCl 500 mg tablet 500 mg PO BID 10 days #20 tabs 01/11/25 01/17/25 Rx metronidazole 500 mg tablet 500 mg PO BID 10 days #20 tabs 01/11/25 01/17/25 Rx metolazone 2.5 mg tablet 2.5 mg PO DAILY 01/16/25 01/17/25 History omeprazole 40 mg capsule,delayed See Rx Instructions .Route 01/16/25 01/17/25 Rx release .COMPLEX #180 caps Patient hx anesthesia problems: none Family hx anesthesia problems: none Results Review: All pre-operative results and documents have been reviewed as part of the pre-operative evaluation. 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46 no issue since with an EF of 69% Esophageal web Diverticulitis Vaginal fistula Insomnia Anxiety Hypertension Neuropathy Rosacea Migraine Herniated disc Headache Depression Osteoporosis Surgical History Surgical History History of lumbar surgery (06/2019) History of left salpingo-oophorectomy for benign cyst History of colonoscopy with polypectomy History of cervical spinal surgery History of cardiac radiofrequency ablation (2008) Ablation x3 for atrial tachycardia and right ventricle outflow tract tachycardia done at [facility] History of nasal surgery History of foot surgery (2015) repair of torn ligament in right foot History of knee replacement procedure of right knee (09/2014) revision-poly exchange 06/11/2020 History of hemorrhoidectomy (10/2012) History of (04/2001) Family History Family History Father Cerebrovascular accident Family history of heart disease in male family member before age 55 Hypertension Family history of lung cancer Sibling Family history of heart disease in male family member before age 55 Mother Cancer Other Family history of cardiovascular disease Social History Social History Social History: Surrogate medical decision maker: Dio Andrade, son. Code status: Full code. Smoking packs per day: 0.5 Smoking cigarettes per day: 10.0 Years smoked: 50 Smoking pack-years: 25.00 Smoking status: Current every day smoker Tobacco type: cigarettes Second hand tobacco smoke exposure: No Alcohol intake: never Substance use: never Substance use type: does not use Do You Feel Safe in your Home?: Yes Lack of Transportation: No Lack of Food: Never True Current Housing: I Have Housing Concerned About Future Housing: No Difficulty Paying Gas/Electric Bills: No Difficulty Paying for Meds: No Currently Unemployed: No Education: Decline to Answer Difficulty w/ Childcare or Family Care: No Living arrangements: with family Additional living arrangements comments: . Spiritual care concerns: No Anes - Eval Final PreProcedure Day of Procedure 01/17/25 12:47 Patient weight: obese Heart: regular rate and rhythm Lungs: clear to auscultation Airway: Mallampati scale class II Neurological: alert and oriented Last oral intake: >/= 8 hours ASA classification: III Emergent: no Anesthetic plan: proceed Anesthesia type and monitoring: general GIVS and standard monitoring Results Review: All pre-operative results and documents have been reviewed as part of the pre-operative evaluation. Informed Consent: The patient's anesthetic plan and its attendant risks and benefits were discussed with the patient/family/POA. Questions were solicited and answers provided to the satisfaction of the patient/family/POA.
[2025-01-17 12:59] VITALS: BP 141/68; PULSE 80; RESP 18; O2SAT 100
[2025-01-17 13:09] VITALS: BP 141/72; PULSE 78; RESP 18; O2SAT 100
[2025-01-17 13:19] VITALS: BP 154/76; PULSE 80; RESP 18; O2SAT 100
== END 2025-01-17 13:26 | disposition home or self-care (01) ==
PROVIDERS: Referring Provider Nurse Practitioner Family; Visit Provider Internal Medicine Gastroenterology
PROC: 0DJ08ZZ Inspection of Upper Intestinal Tract, Via Natural or Artificial Opening Endoscopic (ICD-10-PCS; CPT 43235; principal; 2025-01-17 13:30)
DX: R13.10 Dysphagia, unspecified (principal); K44.9 Diaphragmatic hernia without obstruction or gangrene; C80.1 Malignant (primary) neoplasm, unspecified; C79.51 Secondary malignant neoplasm of bone; C78.7 Secondary malignant neoplasm of liver and intrahepatic bile duct; F17.210 Nicotine dependence, cigarettes, uncomplicated
CPT/HCPCS: 43235; J2704; J7120

== ENCOUNTER 2025-01-27 08:37 | Outpatient (CLI) | payer MEDICARE, SELFPAY ==
--- NOTE | 2025-01-23 11:56 | PC.NURSE ---
Pre Radiology instructions Report to the outpatient carrie alvarez on date _8:30 AM____ at time 01/27/25 for procedure Time: _10:30 AM___ YOU MAY BE MONITORED AT HOSPITAL FOR UP TO 4 HOURS AFTER YOUR PROCEDURE. A visitor will be allowed to accompany the patient into the hospital. You and your visitor will be asked to self-screen and do not enter if you have any COVID symptoms. A mask is OPTIONAL within the hospital. Patients are to have no food or drink 6 hours prior to procedure time Driving will be restricted after the procedure, you must have a person to drive you home. Labs will be drawn in preop area and once reviewed, you will be taken to radiology area for procedure. When the procedure is completed, you will be taken to outpatient where you will be monitored for several hours. You may have one visitor in this area. Other than holding anti-coagulants, patient may take other medication(s) as scheduled. Prior to your appointment date patients are instructed to hold anti-coagulants after discussing with ordering provider to stop. If unable to discontinue anti-coagulants please notify radiologist. ? No aspirin or warfarin (Coumadin) for 7 days prior to the procedure. ? No clopidogrel (Plavix), ticagrelor (Brilinta), prasugrel (Effient) or dabigatran (Pradaxa) for 5 days prior to the procedure. ? No rivaroxaban (Xarelto), apixaban (Eliquis), dipyridamole (Aggrenox or Persantine) or cilostazol (Pletal) for 2 days prior to the procedure. Medications to discontinue per physician: __NONE Date to take last dose: Please leave all valuables, including medications, at home the day of procedure. The hospital will not accept responsibility for valuables. Wear comfortable, loose fitting clothing.? Follow any additional instructions given to you from ordering provider. Telephone instructions given to ____PATIENT and asked if any additional questions and then verbalized understanding. Patient advised to call scheduling provider office or registration scheduling [phone] if any additional questions.
[2025-01-23 12:02] VITALS: BMI 28.3
[2025-01-27] VITALS (11 sets, daily range): BP systolic 108–159; BP diastolic 54–88; PULSE 89–102; RESP 16–18; TEMP 36.8; O2SAT 98–100; BMI 28.8
--- NOTE | ~2025-01-27 | US_ITS ---
EXAMINATION: US biopsy liver DATE: 01/27/2025 12:05 INDICATION: Complex cystic hepatic mass. Carcinoma of indeterminate etiology, metastatic to bone TECHNIQUE: The procedure including the risks and benefits was discussed with the patient. Risks discu ssed included bleeding and infection. The patient understood the risks and agreed to proceed. The sk in overlying the liver was prepped and draped in usual sterile fashion. Anesthetic was administered with 1% lidocaine subcutaneously. An 18 gauge core biopsy needle was advanced under continuous ultra sound observation to the lesion of interest. 4 core biopsy specimens were obtained. Additionally 22- gauge spinal needle was advanced into the cystic component of the lesion and fluid was aspirated from the lesion. The needle was removed and the entry site was cleaned and dressed. Post procedure ultr asound demonstrated no hemorrhage. The fluid was sent to the lab for aerobic, anaerobic and fungal Gr am stain and cultures and for cytology. FINDINGS: Ultrasound images demonstrate an approximately 3.8 x 3.3 x 2.3 similar complex cystic mass which peripherally is mildly hyperechoic to the surrounding liver and with central anechoic and hypoe choic cystic components by irregular thick intervening septations. 2.5 cL of opaque reddish -orange-colored fluid was aspirated and sent to the lab. IMPRESSION: 1. Successful Ultrasound-guided core needle biopsy and fluid aspiration from a 3.8 x 3.3 x 2.3 cm com plex cystic hepatic mass. Differential would include malignancy and abscess. Reviewed, dictated and finalized at location A. IMPRESSION: 1. Successful Ultrasound-guided core needle biopsy and fluid aspiration from a 3.8 x 3.3 x 2.3 cm complex cystic hepatic mass. Differential would include vu gnancy and abscess.
[2025-01-27 10:02] LABS: Mean Platelet Volume 9.3 fl (7.4-10.4); Platelet Count Result 433 k/mm3 (150-375)
[2025-01-27 10:24] LABS: Prothrombin Time 13.3 Seconds (11.1-14.7)
--- NOTE | 2025-01-27 13:12 | SUR.PHASEII ---
1304: Spoke w/ Dr. Hyde and told him that the patient stated, She was not staying for [address] hours [address] to recover[address] Dr. Hyde asked this RN to please reiterate that patient has a high risk for bleeding and that it would be in her best interest to stay the 4 hours to recover. RN relayed the message to patient. She said she was very uncomfortable and takes pain meds Q3H at home and hasn't any yet today. RN notified Dr. Hyde and he said it was fine to give patient her home dose of pain meds now.
[2025-01-27] MEDS: HYDROcodone/acetaminophen (*CRX) 5-325 MG TABLET 1 TAB PO (13:25)
== END 2025-01-27 15:37 | disposition home or self-care (01) ==
PROVIDERS: PCP Family Medicine; Visit Provider Radiology Diagnostic Radiology
PROC: BF45ZZZ Ultrasonography of Liver (ICD-10-PCS; CPT 47000; principal; 2025-01-27 10:30)
DX: Z01.818 Encounter for other preprocedural examination (principal); C22.8 Malignant neoplasm of liver, primary, unspecified as to type
CPT/HCPCS: 36415; 47000; 76942; 85049; 85610; 87070; 87075; 87102; 87205; 87206; 88108; 88305; 88307; 88312; 88342; A9270

== ENCOUNTER 2025-05-22 08:59 | Outpatient (CLI) | payer MEDICARE, SELFPAY ==
--- NOTE | ~2025-05-22 | CT_ITS ---
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 Dose reduction technique was used on this scan by uti lizing automated exposure control and iterative reconstruction technique. The dose-length product (DL P) was 816.95 mGy-cm. Comparison: 12/09/2024 Findings: There is no evidence of any significant mediastinal, hilar or axillary lymphadenopathy. The mediastin al soft tissues and vascular structures appear normal. There is no evidence of pleural or pericardial effusion. The lungs are clear. No pulmonary nodules or infiltrates are noted. Stable hepatic cysts. The spleen, pancreas, gallbladder, and adrenal glands are within normal limits. Bilateral nonobstructing renal stones are present. There are atherosclerotic calcifications of the a hung. No lymphadenopathy. Findings compatible with chronic sigmoid diverticulitis with enterocolonic and colocolonic fistulas p resent in the left lower quadrant Urinary bladder is unremarkable. No pelvic mass seen. No ascites. Stable metastatic lesions involving the T9, T11, and L1 vertebral bodies. There are additional metastatic lesions involving the bilatera l iliac wings, similar to prior exam. Metastatic lesion in the posterior right ninth rib is more scle rotic and expansile, with suspected nondisplaced pathologic fracture present at this time. Metastatic lesion at the right scapula is more sclerotic and increased in size as compared to prior exam. Impression: Osseous metastatic disease, as detailed above. Several lesions are increased in size and sclerosis as compared to prior exam, which could reflect interval response to therapy. Suspected nondisplaced pat hologic fracture in the posterior right ninth rib. Stable presumed hepatic cysts. 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 Bilateral nonobstructing nephrolithiasis. Reviewed, dictated and finalized at location M. Impression: Osseous metastatic disease, as detailed above. Several lesions are increased in size and sclerosis as compared to prior exam, which could reflect interval res ponse to therapy. Suspected nondisplaced pathologic fracture in the posterior r ight ninth rib. Stable presumed hepatic cysts. 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 Bilateral nonobstructing nephrolithiasis.
--- OUTSIDE RECORDS SUMMARY | 2025-05-22 09:07 | XMS_ITS | Clinical Summary ---
Author Organization [facility] Address [address] [place] [address] Care Team Providers Care Radio Operator Name Role Phone Edy Aviles DO Primary Care Provider [phone] Source Comments [facility],non-owned Affiliates and Associated Physician Practices is amultiple site organization consisting of ambulatory clinics and hospital sitesin [place], [place], [place] and [place]. This disclosure is being madepursuant to the Care Everywhere program and may not contain all information available regarding this patient. Last updated 18.[facility] [place] Allergies Active Allergy Reactions Criticality Noted Date Comments Codeine Urticaria,Nausea and /or Vomiting Medium 10/10/2021 Lisinopril Nausea and/or Vomiting Low 08/19/2021 Nausea and abdom pain Medications * Be aware that medications may not be up to date on this document. Alwaysverify current medications with the patient. metoprolol tartrate (LOPRESSOR) 25 MG tablet Take [...] 0.05 % ophthalmic suspension 2 times daily Activ e aspirin (ASPIRIN) 325 MG tablet Take 325 mg by mouth once daily Active therapeutic multivitamin-min erals (THERAGRAN-M) tablet Take 1 tablet by mouth daily with food Active calcium carbonate (CALTRATE) 600 MG tablet Take 1 tablet by mouth daily with food Active vitamin D3 (CHOLECALCIFEROL ) 25 MCG (1000 UNITS) tablet Take 2,000 Units by mouth once daily Active Estradiol (IMVEXXY MAINTENANCE PACK) 10 MCG INST Insert into the vagina Two times a week Active gabapentin (NEURONTIN) 300 MG capsule Take 1 (one) capsule by mouth 3 times daily 90 capsule 1 Active docusate sodium (COLACE) 100 MG capsuleIndicatio ns:Closed fracture of left tibial plateau, initial encounter Take 1 (one) capsule by mouth 2 times daily 60 capsule 1 Active Active Problems Problem Noted Date Diagnosed Date Accidental fall from ladder 10/10/2021 Closed fracture of left fibula and tibia 021 Pain of left lower extremity 10/10/2021 Closed fracture of left tibial plateau Retained orthopedic hardware Immunizations 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 Never 10/10/2021 Comments No Sex and Gender Information Value Date Recorded Sex Assigned at Not on file Legal Sex Female 6:21 AM LAMPS TESTER AND INSPECTOR Gender Identity Not on file Sexual Orientation Not on file Last Filed Vital Signs Vital Sign Reading Time Taken Comments Blood Pressure 148/57 10/26/2021 7:27 AM LAMPS TESTER AND INSPECTOR Pulse 95 10/26/2021 7:27 AM LAMPS TESTER AND INSPECTOR Temperature 36.8 C (98.3 F) 10/26/2021 7:27 AM LAMPS TESTER AND INSPECTOR Respiratory Rate 16 10/25/2021 10:58 PM LAMPS TESTER AND INSPECTOR Oxygen Saturation 100% 10/26/2021 7:27 AM LAMPS TESTER AND INSPECTOR Inhaled Oxygen Concentration 40% 10/25/2021 1 2:10 PM LAMPS TE[employer] AND INSPECTOR Weight 85.7 kg (189 lb) 07/08/2022 9:04 AM CDT Height 156.2 cm (5' 1.5) 07/08/2022 9:04 AM CDT Body Mass Index [...] FLEX SIG - COLON CA SCREENING 1955 MAMMOGRAM 1955 MEDICARE AWV 12 MONTHS 1955 HEPATITIS C SCREENING 09/06/1974 DTAP/TDAP/TD VACCINES (1 - Tdap) 1975 PNEUMOCOCCAL VACCINE 50+ (1 of 2 - PCV) 1975 ZOSTER VACCINE (1 of 2) 2006 COVID-19 VACCINE (4 - season) 2024 09/08/2021, 03/05/2021, 02/05/2021 SCREENING FOR DIABETES 10/26/2024 , 10/15/2021, 10/14/2021, Additional history exists DEPRESSION SCREENING 11/09/2024 INFLUENZA VACCINE (#1) 2025 LIPID TESTING 08/19/2026 08/19/2021 Respiratory Syncytial Virus (RSV) Vaccine Pt: or [...] complete this topic MENINGOCOCCAL (Group B) VACCINE SHARED DECISION-MAKING Aged Out No longer eligible based on patient's age to complete this topic MENINGOCOCCAL GROUPS A/C/Y/W VACCINE Aged Out No longer eligible based [...] 3-4 weeks. Medical Devices Implanted Type Area Senior It Assistant Device Identifier Shelf Expiration Date Model / Serial / Lot Pin Hlf 255mm 5mm Jtx Lng Ss 35mm Extfix Implanted:Qty: 2 on 10/11/2021 by Jovon Maloney DO at [facility] Left: [employer] [id number] / / Pin Hlf 40mm 5mm Jtx Lng Ti Ntrd Extfix Implanted:Qty: 2 on 10/11/2021 by Jovon Maloney DO at [facility] Left: [employer] [id number] / / Bar Extfix 200mm Jtx Cfbr Nonster Disp Implanted:Qty: 2 on 10/11/2021 by Jovon Maloney DO at [facility] Left: [employer] [id number] / / Screw 3.5mm 46mm Ft Hex Drv Nlckg Fly Implanted:Qty: 1 on 10/25/2021 by Jovon Maloney DO at [facility] Left: [employer] [id number] / / Screw 3.5mm 50mm Ft Nonlock Hex Drv Elb Implanted:Qty: 2 on 10/25/2021 by Jovon Maloney DO at [facility] Left: [employer] [id number] / / Screw 3.5mm 55mm Ft Slf-Tap Hex Lopro Implanted:Qty: 1 on 10/25/2021 by Jovon Maloney DO at [facility] Left: [employer] [id number] / / Screw 3.5mm 65mm T15 Lck Slf-Tap Tip Tpr Implanted:Qty: 3 on 10/25/2021 by Jovon Maloney, DO at [facility] Left: [employer] [id number] / / Screw 3.5mm 70mm T15 Lck Slf-Tap Tip Tpr Implanted:Qty: 2 on 10/25/2021 by Jovon Maloney, DO at [facility] Left: [employer] [id number] / / Plate 5 Hl Lck Lopro Dist Blt Tip Tib Lt Implanted:Qty: 1 on 10/25/2021 by Jovon Maloney, DO at [facility] Left: [employer] [id number] / / Screw 3.5mm 65mm 2.2mm Mldir Lck Sq Drv Implanted:Qty: 1 on 10/25/2021 by Jovon Maloney, DO at [facility] Left: [employer] [id number] / / Screw 3.5mm 80mm Sq Drv Nonlock Lopro Implanted:Qty: 1 on 10/25/2021 by Jovon Maloney, DO at [facility] Left: [employer] [id number] / / Screw 3.5mm 75mm T15 Lck Slf-Tap Tip Tpr Implanted:Qty: 1 on 10/25/2021 by Jovon Maloney, DO at [facility] Left: [employer] [id number] / / Plate 5 Hl Lopro Lck Ulna Olcrn Dist 61 Implanted:Qty: 1 on 10/25/2021 by Jovon Maloney, DO at [facility] Left: [employer] [id number] / / Screw 3.5mm 34mm Ft Nonlock Hex Drv Elb Implanted:Qty: 1 on 10/25/2021 by Jovon Maloney, DO at [facility] Left: [employer] [id number] / / Screw 3.5mm 38mm Ft Slf-Tap Hex Lopro Implanted:Qty: 1 on 10/25/2021 by Jovon Maloney, DO at [facility] Left: [employer] [id number] / / Screw 3.5mm 40mm Ft Slf-Tap Hex Lopro Implanted:Qty: 1 on 10/25/2021 by Jovon Maloney DO at [facility] Left: [employer] [id number] / / Explanted Type Area Senior It Assistant Device Identifier Shelf Expiration Date Model / Serial / Lot Clamp Extfix Jtx 10.5mm Bar To Bar Mr Sf Explanted:Qty: 2 on 10/11/2021 at [facility] Left: [employer] [id number] / / Screw 3.5mm 55mm Ft Slf-Tap Hex Lopro Explanted:Qty: 1 on 10/25/2021 by Jovon Maloney DO at [facility] Left: [employer] [id number] / / Wire K 1.6mm 6in Hlf Bynt Pnt Ss Fx Explanted:Qty: 4 on 10/25/2021 by Jovon Maloney DO at [facility] Left: [employer] [id number] / / Screw 3.5mm 36mm Ft Slf-Tap Hex Lopro Explanted:Qty: 1 on 10/25/2021 by Jovon Maloney DO at [facility] Left: [employer] [id number] / / Procedures Procedure Name Priority Date/Time Associated Diagnosis Comments BASIC METABOLIC PANEL (CALCIUM TOTAL) Routine 10/26/2021 2:31 AM LAMPS TESTER AND INSPECTOR Closed fracture of left tibial plateau, initial encounter from Last 3 Months or Most Recently Relevant to Health Maintenance Results * (ABNORMAL) BASIC METABOLIC PANEL (CALCIUM TOTAL) (10/26/2021 2:31 AM LAMPS TESTER AND INSPECTOR) BUN 14 7 - 26 mg/dL 10/26/2021 3:29 AM [facility] Creatinine 0.95 0.56 - 0.96 mg/dL 10/26/2021 3:29 AM [facility] Sodium 134(L) 136 - 145 mmol/L 10/26/2021 3:29 AM [facility] Potassium 4.2 3.5 - 4.5 mmol/L 10/26/2021 3:29 AM [facility] Chloride 102 98 - 107 mmol/L 10/26/2021 3:29 AM [facility] CO2 25 22 - 29 mmol/L 10/26/2021 3:29 AM [facility] Glucose 106 70 - 115 mg/dL 10/26/2021 3:29 AM [facility] Calcium 8.9 8.4 - 10.2 mg/dL 10/26/2021 3:29 AM [facility] Anion Gap 11 8 - 18 10/26/2021 3:29 AM [facility] BUN/Creatinine Ratio 15 7 - 23 10/26/2021 3:29 AM [facility] Osmolality Calculated 279 270 - 300 mOsm/kg 10/26/2021 3:29 AM [facility] eGFR by CKD-EPI 63(L) >=90 mL/min/1.7 3 m2 10/26/2021 3:29 AM [facility] Blood BLOOD SPECIMEN / Unknown Lab Venipuncture / Unknown 10/26/2021 2:31 AM [facility] 10/26/2021 3:01 AM [facility] Jovon Maloney DO LAB - CHEMISTRY ORDERABLES Fin al Result [facility] [address] [place] [address], [facility] [phone] from Last 3 Months or Most Recently Relevant to Health Maintenance Insurance MEDICARE AETNA AETNA MEDICARE AETNA SELF PAY NO INSURANCE Member Subscriber Plan / Payer (Ef fective for All Dates) Name:Frannie Palma Member ID:Not on file Relation to Subscriber:Not on file Name:KATFRANNIE Villalobos Subscriber ID:Not on file (Home) Address: [place] [address] Payer ID:Not on file Group ID:Not on file Type:Self Pay Address: [place], [place] Advance Directives * Full Code (Latest Code Status on File) Date Activated Date Inactivated Comments 10/25/2021 1:30 PM 10/26/2021 1:32 PM * Full Code Date Activated Date Inactivated Comments 10/11/2021 12:36 PM 10/15/2021 3:44 PM Care Teams Radio Operator Relationship Specialty Start Date End Date Edy Aviles DO [address] [place] [address] PCP - General 06/17/22
--- OUTSIDE RECORDS SUMMARY | 2025-05-22 09:07 | XMS_ITS | Clinical Summary ---
[facility] Organization [facility] Address [address] [place] [address] Care Team Providers Care Electrical Intern Name Role Phone Per Samson MD Primary Care Provider [phone] Allergies Active Allergy Reactions Criticality Noted Date [...] 8 hours as needed for Pain. Active multivit-min/i vargas/FA/vit K/lut (CENTRUM SILVER WOMEN ORAL) Take by mouth. Activ e calcium carbonate/carla min D3 (CALTRATE 600 + D ORAL) Take 600 mg by mouth 2 times daily. Active cholecalcifero l, Vitamin D3, 125 mcg (5,000 unit) Capsule Take 5,000 Units by mouth daily. Active MINERAL OIL ORAL Take by mouth. Activ e POLYETHYLENE GLYCOL 3350 ORAL Take by mouth daily. Dissolve in 8 ounces of fluid and drink entire liquid Active psyllium (METAMUCIL) Packet Take 1 Packet by mouth daily. Active naloxone (NARCAN) 4 mg/spray [place], Non-Aerosol EMERGENCY USE ONLY: Administer 1 spray (4 mg) in one nostril one time. May repeat in alternating nostrils every 2-3 min until responsive or EMS arrives. 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 30 Gram 1 5 Active ondansetron (ZOFRAN ODT) 8 mg Tablet, Rapid DissolveIndica tions:Carcinom a metastatic to bone with unknown primary site (CMS/HCC) Dissolve 1 tablet on top of tongue then swallow with saliva every 8 hours as needed for nausea or vomiting 30 Tablet 1 5 Active megestroL (MEGACE) 400 mg/10 mL (40 mg/mL) suspensionIndi cations:Carcin merna metastatic to bone with unknown primary site (CMS/HCC) Take 5 mL (200 mg) by mouth daily. 150 mL 1 5 Active benzonatate (TESSALON) 200 mg capsule Take 1 Capsule (200 mg) by mouth 3 times daily as needed for Cough. 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) 05/10/2025 8:30 AM CDT Office Visit [facility] Oncology [facility] Hematology [facility] [address] [place] [address] Basil Ludwig MD 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) (Primary Dx) 05/10/2025 Orders Only [facility] Oncology and Hematology [facility] [address] [place] [address] Basil Ludwig MD 05/02/2025 External Device Data STL ABSTRACTION Provider, Abstract 05/02/2025 Refill [facility] Oncology [facility] Hematology [facility] [address] [place] [address] Basil Ludwig MD 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) 05/01/2025 Orders Only [facility] Oncology and Hematology [facility] [address] [place] [address] Basil Ludwig MD 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) 04/19/2025 8:30 AM CDT Office Visit [facility] Oncology [facility] Hematology [facility] [address] [place] [address] Basil Ludwig MD 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) (Primary Dx) 04/19/2025 Orders Only [facility] Oncology and Hematology [facility] [address] [place] [address] Basil Ludwig MD 04/17/2025 Orders Only [facility] Oncology and Hematology - [place] [address] [place] [address] Basil Ludwig MD 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) 04/03/2025 Orders Only [facility] Oncology and Hematology - [place] [address] [place] [id number] Basil Ludwig MD 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) 03/29/2025 8:30 AM CDT Office Visit [facility] Oncology and Hematology - [place] [address] [place] [id number] Basil Ludwig MD 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) (Primary Dx) 03/29/2025 External Device Data STL ABSTRACTION Provider, Abstract 03/29/2025 External Device Data STL ABSTRACTION Provider, Abstract 03/29/2025 [facility] Oncology and Hematology - [place] [address] [place] [id number] Basil Lduwig MD 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) (Primary Dx) 03/20/2025 Orders Only [facility] Oncology and Hematology - [place] [address] [place] [address] Basil Ludwig MD 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) 03/10/2025 Telephone [facility] Oncology and Hematology - [place] [address] [place] [address] Basil Ludwig MD Pain 03/10/2025 Refill [facility] Oncology and Hematology - [place] [address] [place] [address] Basil Ludwig MD 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) (Primary Dx) 03/08/2025 Abstract [facility] Oncology and Hematology - [place] [address] [place] [id number] Basil Ludwig MD 03/08/2025 Orders Only [facility] Oncology and Hematology - [place] [address] [place] [id number] Basil Ludwig MD 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) (Primary Dx) 03/06/2025 Refill [facility] Oncology and Hematology - [place] [address] [place] [address] Basil Ludwig MD 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) (Primary Dx) 03/06/2025 Orders Only [facility] Oncology and Hematology - [place] [address] [place] [address] Basil Ludwig MD 03/01/2025 Orders Only [facility] Oncology and Hematology - [place] [address] [place] [address] Basil Ludwig MD Need for hepatitis B screening test (Primary Dx) 02/20/2025 4:30 PM CDT Telephone Check Up [facility] Oncology and Hematology - [place] [address] [place] [phone] Basil Ludwig MD from Last 3 Months Family History Medical [...] on file Legal Sex Female 2:15 PM HOME LENDING OFFICER Gender Identity Not on file Sexual Orientation Not on file Last Filed Vital Signs Vital Sign Reading Time Taken Comments Blood Pressure 150/82 05/10/2025 8:45 AM CDT Pulse 99 05/10/2025 8:43 AM CDT Temperature 36.6 C (97.8 F) 05/10/2025 8:43 AM CDT Respiratory Rate 15 05/10/2025 8:43 AM CDT Oxygen Saturation 94% 05/10/2025 8:43 AM CDT Inhaled Oxygen Concentration - - Weight 69.5 kg (153 lb 4.8 oz) 05/10/2025 8:43 A M CDT Height 154.9 cm (5' 1) 01/04/2025 11:41 AM HOME LENDING OFFICER Body Mass Index 28.97 01/04/2025 11:41 AM HOME LENDING OFFICER Plan of Treatment Upcoming Encounters Date Type Department Care Team (Late st Contact Info) Description 05/29/2025 8:30 AM CDT Office Visit [facility] Oncology and Hematology - [place] [address] [place] [address] Basil Ludwig MD [address] [place] [address] Health Maintenance Due Date Last Done Comments Pre-Diabetes and Diabetes Screening 1955 DTAP/TDAP/TD VACCINES (1 - Tdap) 1975 PNEUMOCOCCAL VACCINE 50+ YEA RS (1 of 2 - PCV) 1975 Traditional Medicare (ACO) A nnual Wellness Visit 1975 ZOSTER VACCINE (1 of 2) 1975 BREAST CANCER SCREENING 1996 COLORECTAL SCREENING 2001 Colorectal Cancer Screening 2001 FIT-DNA Q 3 years 2001 FIT/FOBT Q 1 year 2001 Flex Sig/CT Colonography Q 5 years 2001 OSTEOPOROSIS SCREENING 2021 COVID-19 Vaccine ( season) 2024 09/08/2021, 03/05/2021, 02/05/2021 INFLUENZA VACCINE (#1) 2025 RSV VACCINE (60+ or ) (1 - 1-dose 75+ series) 2031 Procedures Procedure Name Priority Date/Time Associated Diagnosis Comments BASIC METABOLIC PANEL Routine 05/10/2025 12:22 PM CDT COMPREHENSIVE METABOLIC PANEL Routine 05/10/2025 12:19 PM CDT BASIC METABOLIC PANEL Routine 04/19/2025 12:24 PM CDT COMPREHENSIVE METABOLIC PANEL Routine 04/19/2025 12:06 PM CDT COMPREHENSIVE METABOLIC PANEL Routine 03/08/2025 11:31 AM CDT COMPREHENSIVE METABOLIC PANEL Routine 03/08/2025 11:29 AM CDT COMPREHENSIVE METABOLIC PANEL Routine 03/08/2025 11:27 AM CDT CBC MIXED CELL DIFFERENTIAL Routine 03/08/2025 9:45 AM CDT BASIC METABOLIC PANEL Routine 03/08/2025 9:42 AM CDT COMPREHENSIVE METABOLIC PANEL Routine 03/03/2025 1:30 PM CDT QUANTIFERON TB CONFIRMATION Routine 03/03/2025 7:52 AM CDT from Last 3 Months Results * BASIC METABOLIC PANEL (05/10/2025 12:22 PM CDT) Only the most recent of3 resultswithin the time period is included. Blood us Basil Ludwig MD CHEMISTRY ORDERABLES Final Resu lt * COMPREHENSIVE METABOLIC PANEL (05/10/2025 12:19 PM CDT) Only the most recent of6 resultswithin the time period is included. Blood us Basil Ludwig MD CHEMISTRY ORDERABLES Final Resu lt * CBC MIXED CELL DIFFERENTIAL (03/08/2025 9:45 AM CDT) Blood us Basil Ludwig MD HEMATOLOGY ORDERABLES Final Res ult * QUANTIFERON TB CONFIRMATION (03/03/2025 7:52 AM CDT) Blood us Basil Ludwig MD CHEMISTRY ORDERABLES Final Resu lt from Last 3 Months Insurance MEDICARE PART A AND B AETNA MEDICARE SUPP AESSI Care Teams Electrical Intern Relationship Specialty Start Date End Date Per Samson MD [address] [place] [address] PCP - General Family Practice 02/17/25
--- OUTSIDE RECORDS SUMMARY | 2025-05-22 09:07 | XMS_ITS | Clinical Summary ---
Author Organization [facility] [place] [address] Address [address] [place] [address] Care Team Providers Care Supervisor Plastics Name Role Phone Per Samson MD Primary Care Provider [phone] Coretta Childers MD Unavailable [phone] Tima Henson MD Unavailable [phone] Allergies Active Allergy Reactions Criticality Noted Date [...] mouth 2 (two) times a day Active ddupjbxf-nsl-AB-ly copen-lutein 0.4-300-250 mg-mcg-mcg tabletIndications: Vitamin Deficiency Prevention [...] 08/28/2023 Assessment & Plan (09/21/2023 9:12 AM PASTRYCOOK'S ASSISTANT): She is doing pretty well. Feels [...] implantable loop record er 03/07/2022 Overview (03/07/2022): [employer] Bio-monitor III Loop Recorder. Dx; Syncope, PSVT, AT, RVOT VT s/p ablation. DOI 03/05/2022-[facility]. [employer] remote monitoring. Dizziness 08/19/2021 Lower extremity edema [...] (10/26/2020): Added automatically from request for surgery [id number] Migraine 08/10/2020 Assessment & Plan (08/10/2020 2:22 [...] neuralgia. Assessment & Plan (11/30/2019 1:53 PM PASTRYCOOK'S ASSISTANT): Ms. Palma has occipital neuralgia with [...] less. Assessment & Plan (10/02/2020 1:29 PM PASTRYCOOK'S ASSISTANT): Ms. Palma continues to do well clinically after posterior lumbar decompression fusion at L4-5. She has good alignment. There is no lucency around the hardware. We will continue to follow this over time. Assessment & Plan (11/30/2019 1:51 PM PASTRYCOOK'S ASSISTANT): Ms. Palma reports persistent numbness in [...] (05/20/2019): Added automatically from request for surgery [id number] Assessment & Plan (01/22/2023 12:27 PM CDT): [...] physician. Assessment & Plan (01/08/2021 12:53 PM PASTRYCOOK'S ASSISTANT): Ms. Palma does not have pain [...] time. Assessment & Plan (10/02/2020 1:29 PM PASTRYCOOK'S ASSISTANT): Ms. Palma was improved after cervical [...] hour to stretch. FOLLOW UP APPT: With ORTHOPEDIC PHYSICIAN in 4 weeks with AP/LAT Cervical spine films. Assessment & Plan (11/24/2018 11:40 AM PASTRYCOOK'S ASSISTANT): Patient has new onset symptoms of [...] patient to schedule on her own at [facility]. We will await the CD to be mailed to our office for Dr. Palmer to review and provide further recommendations. She is to continue the same activity restrictions as outlined prior to surgery. Neuropathic pain 11/24/2018 Assessment & Plan (11/24/2018 11:42 AM PASTRYCOOK'S ASSISTANT): For her neuropathic pain and would [...] (12/16/2018): Added automatically from request for surgery [id number] Cervical spinal stenosis 09/27/2018 Overview (09/27/2018): Added automatically from request for surgery [id number] HNP (herniated nucleus pulposus), lumbar 07/13/2018 03/02/2019 Overview (07/13/2018): Added automatically from request for surgery [id number] Encounters Date Type Department Care Team Description 05/02/2025 Telephone [facility] Cardiology [address] [place], [place] [address] [place] [address] Vy Pierce MD 05/01/2025 7:30 AM CDT Ancillary Procedure [facility] [address] [place] [address] [place] [address] Status post placement of implantable loop recorder; Paroxysmal supraventricular tachycardia; History of radiofrequency ablation (RFA) procedure for cardiac arrhythmia; Syncope and collapse; RVOT ventricular tachycardia (HCC) 03/20/2025 7:30 AM CDT Ancillary Procedure [facility] [address] [place], [place] [address] [place] [address] Status post placement of implantable loop recorder; Paroxysmal supraventricular tachycardia; History of radiofrequency ablation (RFA) procedure for cardiac arrhythmia; Syncope and collapse; RVOT ventricular tachycardia (HCC) from Last 3 Months Immunizations Immunization Administration [...] on file Legal Sex Female 11:06 AM PASTRYCOOK'S ASSISTANT Gender Identity Not on file Sexual Orientation Not on file Obstetrics History Last Filed Vital Signs Vital Sign Reading Time Taken Comments Blood Pressure 134/78 01/10/2025 8:00 AM PASTRYCOOK'S ASSISTANT Pulse 108 01/10/2025 8:00 AM PASTRYCOOK'S ASSISTANT Temperature 36.4 C (97.5 F) 09/07/2023 10:05 AM CDT Respiratory Rate 18 09/15/2023 9:25 AM PASTRYCOOK'S ASSISTANT Oxygen Saturation 98% 01/10/2025 8:00 AM PASTRYCOOK'S ASSISTANT Inhaled Oxygen Concentration - - Weight 69.9 kg (154 lb 3.2 oz) 01/10/2025 8:00 A M PASTRYCOOK'S ASSISTANT Height 154.9 cm (5' 1) 01/10/2025 8:00 AM PASTRYCOOK'S ASSISTANT Body Mass Index 29.14 01/10/2025 8:00 AM PASTRYCOOK'S ASSISTANT Plan of Treatment Health Maintenance Due Date Last Done Comments Breast Cancer Screening-Mammogram 1955 Colon Cancer Screening-Colonoscopy 1955 Depression Screening 1955 Osteoporosis Screening-Bone Density Scan 1955 Hepatitis B Screening 1974 Lung Cancer Screening 2006 Well Visit 65+ 2021 Covid-19 Vaccine ( season) 2024 09/08/2021, 03/05/2021, 02/05/2021 Fall Risk Assessment 09/07/2024 09/07/2023 Influenza Vaccine (#1) 2025 , 08/29/2021, 08/26/2020 DTaP/Tdap/Td Vaccine (2 - Td or Tdap) 09/04/2032 Hepatitis C Screening Completed 10/15/2018 Zoster Vaccine Completed 11/20/2020, 09/21/2020 Pneumococcal vaccine 65+ Completed 01/24/2022 Medical Devices Implanted Type Area Core Stacker Device Identifier Shelf Expiration Date Model / Serial / Lot Loop Recorder Bi[employer] Biomonitor Iii-Left Upper Chest Chest Knee Arthroplasty Right: Knee Left Lower Leg Hardware From Fracture Left: Leg [employer] Os-201 Hemasorb Spatula Wax 2gm Bone Sterile - [id number] Implanted:Qty: 1 on 10/15/2018 by Elvin Palmer MD at [facility] N/A: Spine Cervical [employer] Inc 10/08/2020 OS-201 / / [id number] Cage Foundation 3d Cervical [id number] 7 Deg - [id number] Implanted:Qty: 1 on 10/15/2018 by Elvin Palmer MD at [facility] N/A: Spine Cervical Core Link [id number] 12/02/2022 [id number] / / [id number] Core Link Anodyne 12mm Level 1 Spine Cervical Anterior Plate Bone - [id number] Implanted:Qty: 1 on 10/15/2018 by Elvin Palmer MD at [facility] N/A: Spine Cervical Core Link / / Core Link [id number] Anodyne 4mm 14mm Variable Angle Self Tap Spine Cervical Screw - [id number] Implanted:Qty: 4 on 10/15/2018 by Elvin Palmer MD at [facility] N/A: Spine Cervical Core Link 11587-18 / / Screw Bone Biased Angle L14 Mm Od3.5 Mm Cephelad Caudal Nonsterile Posterior Occipital Cervical Thoracic System 3500 Series - [id number] Implanted:Qty: 4 on 01/20/2019 by Elvin Palmer MD at [facility] N/A: Spine Cervical Core Link 53294-35 / / Screw Set Spinal 3500 Series - [id number] Implanted:Qty: 4 on 01/20/2019 by Elvin Palmer MD at [facility] N/A: Spine Cervical Core Link 88521-39 / / Core Link [id number] [place] 3.5mm 50mm Line Prebent Jin Spinal Nonsterile 3500 Series - [id number] Implanted:Qty: 1 on 01/20/2019 by Elvin Palmer MD at [facility] N/A: Spine Cervical Core Link [id number] / / Core Link 31178-26 [place] Screw Set 5500 Series - Sna - [id number] Implanted:Qty: 4 on 06/20/2019 by Elvin Palmer MD at [facility] N/A: Back Core Link 68439-42 / NA / Core Link [id number] [place] 5.5mm 35mm Line Prebent Jin Spinal Nonsterile 5500 Series - Sns - [id number] Implanted:Qty: 2 on 06/20/2019 by Elvin Palmer MD at [facility] N/A: Back Core Link [id number] / NS / Isto [employer] [id number] Inqu Paste Mix Plus Senior Erp Consultant 10cc Bone Graft Hyaluronic Acid Poly - Sna - [id number] Implanted:Qty: 1 on 06/20/2019 by Elvin Palmer MD at [facility] N/A: Back [employer] [id number] 01/19/2021 [id number] / NA / [id number] Core Link 04359-50 [place] 6.5mm 40mm Spine Pedicle Screw Bone 5500 Series - Sna - [id number] Implanted:Qty: 4 on 06/20/2019 by Elvin Palmer MD at [facility] N/A: Back Core Link 21537-52 / NA / Cer[employer] Inc 700-025 I Factor Allograft Putty Syringe Graft 2.5cc Bone - [id number] Implanted:Qty: 1 on 11/26/2020 by Elvin Palmer MD at [facility] N/A: Spine Cervical [employer] Inc 09/08/2023 700-025 / / [id number] Cage Foundation 3d Cervical 14.8r83t5qm 7 Deg - [id number] Implanted:Qty: 1 on 11/26/2020 by Elvin Palmer MD at [facility] N/A: Spine Cervical Core Link 10/25/2024 [id number] / / [id number] Core Link Anodyne 12mm Level 1 Spine Cervical Anterior Plate Bone - [id number] Implanted:Qty: 1 on 11/26/2020 by Elvin Palmer MD at [facility] N/A: Spine Cervical Core Link / / Core Link Anodyne 4mm 14mm Variable Angle Self Tap Spine Cervical Screw - [id number] Implanted:Qty: 4 on 11/26/2020 by Elvin Palmer MD at [facility] N/A: Spine Cervical Core Link / / Procedures Procedure Name Priority Date/Time Associated Diagnosis Comments DEVICE CHECK - REMOTE Routine 05/02/2025 9:10 AM CDT Status post placement of implantable loop recorder Paroxysmal supraventricular tachycardia History of radiofrequency ablation (RFA) procedure for cardiac arrhythmia Syncope and collapse RVOT ventricular tachycardia (HCC) DEVICE CHECK - REMOTE Routine 03/21/2025 11:58 AM CDT Status post placement of implantable loop recorder Paroxysmal supraventricular tachycardia History of radiofrequency ablation (RFA) procedure for cardiac arrhythmia Syncope and collapse RVOT ventricular tachycardia (HCC) HEPATITIS C ANTIBODY STAT 10/15/2018 11:20 AM PASTRYCOOK'S ASSISTANT from Last 3 Months or Most Recently Relevant to Health Maintenance Results * DEVICE CHECK - REMOTE (05/02/2025 9:10 AM CDT) Anatomical Region Laterality Modality Other Narrative 05/02/2025 12:23 PM CDT [employer] Bio-monitor III Loop Recorder. Dx; Syncope, PSVT, AT, RVOT VT s/p ablation. [facility] [employer] Thumb remote monitoring. Routine ILR remote. Normal device function. Battery function-Ok. Presenting rhythm: VS, regular (SR). Medications: Norvasc. No auto or patient recorded episodes noted. Counters since last scheduled transmission on 03/20/2025. --6 Tachy (total: 73), egm's ST-SVT @ 150 bpm. --0 Sudden rate drop (total: 7) --0 Symptom (total: 0) --0 AF (total: 1) --0 To (total: 191) --1 Pause (total: 21), egm 6 second pause noted on 04/17/2025 @4:42 am. Ectopy beats: 2475. See scanned report. [employer] remote f/u 06/12/2025. ROV with Jessica Leger NP scheduled 05/16/2025. Shelley Looney RN us Vy Pierce MD [facility] PRO CEDURES Final Result * DEVICE CHECK - REMOTE (03/21/2025 11:58 AM CDT) Anatomical Region Laterality Modality Other Narrative 03/29/2025 4:38 PM CDT [employer] Bio-monitor III Loop Recorder. Dx; Syncope, PSVT, AT, RVOT VT s/p ablation. DOI 03/05/2022-[facility]. [employer] remote monitoring. Routine ILR remote. Normal device function. Battery function-Ok. Presenting rhythm: VS, regular (SR). Medications: Norvasc. No auto or patient recorded episodes noted. Counters since last scheduled transmission on 02/06/2025. --8 Tachy (total: 27), egm's ST. --0 Sudden rate drop (total: 7) --1 Pause (total: 20), egm 4 second pause. --0 Symptom (total: 0) --0 AF (total: 1) --0 To (total: 191) Ectopy beats: 2132. See scanned report. [employer] remote f/u 05/01/2025. Shelley Looney RN Vy Pierce MD [facility] PRO CEDURES Final Result * Hepatitis C antibody (10/15/2018 11:20 AM PASTRYCOOK'S ASSISTANT) Hep C Ab Non-Reactiv e Non-Reactiv e [facility] Blood specimen (specimen) 10/15/2018 11:20 AM PASTRYCOOK'S ASSISTANT 10/15/2018 11:41 AM PASTRYCOOK'S ASSISTANT Narrative [facility] - 10/15/2018 12:25 PM PASTRYCOOK'S ASSISTANT Notinfile Unknown LAB MICROBIOLOGY - GENERAL ORD ERABLES Final Result [facility] Twyla Boyle Department [place] [address] from Last 3 Months or Most Recently Relevant to Health Maintenance Insurance MEDICARE AET MEDICARE AETNA Software MEDICARE AET SENIOR SUPPLEMENT Advance Directives For more information, please contact: [phone] * Full Code (Latest Code Status on File) Date Activated Date Inactivated Comments 09/07/2023 10:10 AM 09/07/2023 2:44 PM * Full Code Date Activated Date Inactivated Comments 06/20/2019 12:01 PM 06/20/2019 6:34 PM * Full Code Date Activated Date Inactivated Comments 10/15/2018 2:08 PM 10/15/2018 4:39 PM * Full Code Date Activated Date Inactivated Comments 07/16/2018 2:30 PM 07/16/2018 6:36 PM Care Teams Supervisor Plastics Relationship Specialty Start Date End Date Per Samson MD PCP - General Family Practice 06/01/23 Coretta Childers MD Consulting Physician Cardiology 08/28/23 Tima Henson MD [address] [place] [address] Consulting Physician Otolaryngology 08/28/23
--- OUTSIDE RECORDS SUMMARY | 2025-05-22 09:07 | XMS_ITS | Encounter Summary ---
Author Organization [facility] Address [address] [place] [address] Care Team Providers Care Video Games Mechanic Name Role Phone Zafar Reddy MD Primary Care Provider [phone] Sung Mullen MD Primary Care Provider [phone] Zafar Reddy MD Primary Care Provider [phone] Sung Mullen MD Primary Care Provider [phone] Zafar Reddy MD Primary Care Provider [phone] Sung Mullen MD Primary Care Provider [phone] Edy Aviles DO Primary Care Provider [phone] Per Samson MD Primary Care Provider [phone] Coretta Childers MD Unavailable [phone] Tima Henson MD Unavailable [phone] Encounter Details Date Type Department Care Team (Late st Contact Info) Description 03/13/2017 Orders Only [facility] ProviderKamran MD [address] [place] [address] Social History Tobacco Use Types Packs/Day Years Used Date Smoking Tobacco: Every Day Alcohol Use Standard Drinks/Week Comments No 0 (1 standard drink = 0.6 oz pur e alcohol) Comments Unknown Sex and Gender Information Value Date Recorded Sex Assigned at Not on file Legal Sex Female 11:06 AM SPORTS BOOK WRITER Gender Identity Not on file Sexual [...] on filedocumented in this encounter Care Teams Video Games Mechanic Relationship Specialty Start Date End Date Zafar Reddy MD [address] [place] [address] PCP - General 06/10/12 11/12/20 Sung Mullen MD [address] [address] PCP - General 11/13/20 11/15/20 Zafar Reddy MD [address] [place] [address] PCP - General 11/16/20 11/22/20 Sung Mullen MD [address] [place] [address] PCP - General 11/23/20 11/25/20 Zafar Reddy MD [address] [place] [address] PCP - General 11/26/20 05/20/21 Sung Mullen MD [address] [place] [address] PCP - General Internal Medicine 05/21/21 06/04/22 Edy Aviles DO [address] [place] [address] PCP - General Internal Medicine 06/05/22 05/31/23 Per Samson MD [address] [place] [address] PCP - General Family Practice 06/01/23 [facility] [address] [place] [address] Consulting Physician Cardiology 08/28/23 Tima Henson MD [address] [address] Consulting Physician Otolaryngology 08/28/23 documented as of this encounter
--- OUTSIDE RECORDS SUMMARY | 2025-05-22 09:07 | XMS_ITS | Clinical Summary ---
Author Organization [facility] Address [address] [place] [address] Care Team Providers Care Software Program Manager Name Role Phone Zafar Reddy MD Primary Care Provider [phone] Allergies Active Allergy Reactions Criticality Noted Date [...] (11/12/2022): Added automatically from request for surgery [id number] Social History Tobacco Use Types Packs/Day Years [...] 11:31 AM CDT Height 156.2 cm (5' 1.5) 03/17/2023 11:31 AM CD T Body Mass Index 38.11 03/17/2023 11:31 AM CDT Plan of Treatment Health Maintenance Due Date Last Done Comments Colorectal Cancer Screening Colonoscopy (10 Years) 1956 Hepatitis C 1974 Mammogram Screening 1996 Annual Medicare Wellness Visit 2021 Dexa Scan (General) 2021 COVID-19 Vaccine (4 - 2023-2 5 season) 2024 09/08/2021, 03/05/2021, 02/05/2021 RSV Immunization or 60+ Years (1 - 1-dose 75+ series) 2031 DTaP, Tdap and Td Vaccines ( 2 - Td or Tdap) 09/04/2032 09/04/2022 Zoster Vaccines Completed 11/20/2020, 09/21/2020 Pneumococcal Vaccine: 50+ Years Completed 01/24/2022 Meningococcal B Vaccine Aged Out No l onger eligible based on patient's age to complete this topic Meningococcal Vaccine Aged Out No diana annabel eligible based on patient's age to complete this topic RSV Immunizations Under 20 Months Aged Out No longer eligible b ased on patient's age to complete this topic Insurance MEDICARE AET Care Teams Software Program Manager Relationship Specialty Start Date End Date Zafar Reddy MD [address] [place] [address] PCP - General 05/10/12
--- OUTSIDE RECORDS SUMMARY | 2025-05-22 09:07 | XMS_ITS | Referral Summary ---
Author Organization [facility] [address] Address [address] [place] [address] Care Team Providers Care Contracts Law Professor Name Role Phone Per Samson MD Primary Care Provider [phone] Coretta Childers MD Unavailable [phone] Tima Henson MD Unavailable [phone] Encounters Date Type Department Care Team Description 05/02/2025 Telephone [facility] Cardiology [address] [place] [phone] Vy Pierce MD 05/01/2025 7:30 AM CDT Ancillary Procedure [facility] Cardiology [address] [place] [address] [place] [phone] Status post placement of implantable loop recorder; Paroxysmal supraventricular tachycardia; History of radiofrequency ablation (RFA) procedure for cardiac arrhythmia; Syncope and collapse; RVOT ventricular tachycardia (HCC) 03/20/2025 7:30 AM CDT Ancillary Procedure [facility] Cardiology [address] [place] [phone] Status post placement of implantable loop recorder; Paroxysmal supraventricular tachycardia; History of radiofrequency ablation (RFA) procedure for cardiac arrhythmia; Syncope and collapse; RVOT ventricular tachycardia (HCC) from Last 3 Months Allergies Active Allergy [...] mouth 2 (two) times a day Active cedigzip-qfl-NK-ly copen-lutein 0.4-300-250 mg-mcg-mcg tabletIndications: Vitamin Deficiency Prevention [...] every 8 (eight) hours as needed 08/30/20 Active Active Problems Problem Noted Date Diagnosed Date Vocal cord nodule 08/28/2023 Hoarseness 08/28/2023 Assessment & Plan (08/28/2023 2:02 PM CDT): She has hoarseness due to vocal polyps. We are scheduling her for surgery. Vocal cord polyps 08/28/2023 Assessment & Plan (09/21/2023 9:12 AM CLINIC ASSISTANT): She is doing pretty well. Feels [...] 06/01/2023 Body mass index 40.0-44.9, adult ([facility]) 06/01 Sleep-disordered breathing 09/07/2022 Status post placement of implantable loop record er 03/07/2022 Overview (03/07/2022): AcadiaSoftroniRaynforest Bio-monitor III Loop Recorder. Dx; Syncope, PSVT, AT, RVOT VT s/p ablation. DOI 03/05/2022-[facility]. AcadiaSoftronik remote monitoring. Dizziness 08/19/2021 Lower extremity edema [...] (10/26/2020): Added automatically from request for surgery [id number] Migraine 08/10/2020 Assessment & Plan (08/10/2020 2:22 [...] neuralgia. Assessment & Plan (11/30/2019 1:53 PM CLINIC ASSISTANT): Ms. Palma has occipital neuralgia with [...] less. Assessment & Plan (10/02/2020 1:29 PM CLINIC ASSISTANT): Ms. Palma continues to do well clinically after posterior lumbar decompression fusion at L4-5. She has good alignment. There is no lucency around the hardware. We will continue to follow this over time. Assessment & Plan (11/30/2019 1:51 PM CLINIC ASSISTANT): Ms. Palma reports persistent numbness in [...] (05/20/2019): Added automatically from request for surgery [id number] Assessment & Plan (01/22/2023 12:27 PM CDT): [...] physician. Assessment & Plan (01/08/2021 12:53 PM CLINIC ASSISTANT): Ms. Palma does not have pain [...] time. Assessment & Plan (10/02/2020 1:29 PM CLINIC ASSISTANT): Ms. Palma was improved after cervical [...] hour to stretch. FOLLOW UP APPT: With MOBILITY MANAGER in 4 weeks with AP/LAT Cervical spine films. Assessment & Plan (11/24/2018 11:40 AM CLINIC ASSISTANT): Patient has new onset symptoms of [...] patient to schedule on her own at [facility]. We will await the CD to be mailed to our office for Dr. Palmer to review and provide further recommendations. She is to continue the same activity restrictions as outlined prior to surgery. Neuropathic pain 11/24/2018 Assessment & Plan (11/24/2018 11:42 AM CLINIC ASSISTANT): For her neuropathic pain and would [...] (12/16/2018): Added automatically from request for surgery [id number] Cervical spinal stenosis 09/27/2018 Overview (09/27/2018): Added automatically from request for surgery [id number] HNP (herniated nucleus pulposus), lumbar 07/13/2018 03/02/2019 Overview (07/13/2018): Added automatically from request for surgery [id number] Immunizations Immunization Administration Dates Next Due Pfizer [...] on file Legal Sex Female 11:06 AM CLINIC ASSISTANT Gender Identity Not on file Sexual Orientation Not on file Last Filed Vital Signs Vital Sign Reading Time Taken Comments Blood Pressure 134/78 01/10/2025 8:00 AM CLINIC ASSISTANT Pulse 108 01/10/2025 8:00 AM CLINIC ASSISTANT Temperature 36.4 C (97.5 F) 09/07/2023 10:05 AM CDT Respiratory Rate 18 09/15/2023 9:25 AM CLINIC ASSISTANT Oxygen Saturation 98% 01/10/2025 8:00 AM CLINIC ASSISTANT Inhaled Oxygen Concentration - - Weight 69.9 kg (154 lb 3.2 oz) 01/10/2025 8:00 A M CLINIC ASSISTANT Height 154.9 cm (5' 1) 01/10/2025 8:00 AM CLINIC ASSISTANT Body Mass Index 29.14 01/10/2025 8:00 AM CLINIC ASSISTANT Plan of Treatment Not on file Medical Devices Implanted Type Area Film Editor Supervisor Device Identifier Shelf Expiration Date Model / Serial / Lot Loop Recorder Biotronik Biomonitor Iii-Left Upper Chest Chest Knee Arthroplasty Right: Knee Left Lower Leg Hardware From Fracture Left: Leg Orthocon Inc Os-201 Hemasorb Spatula Wax 2gm Bone Sterile - [id number] Implanted:Qty: 1 on 10/15/2018 by Elvin Palmer MD at [facility] N/A: Spine Cervical Orthocon Inc 10/08/2020 OS-201 / / [id number] Cage Foundation 3d Cervical 14.1t68s8zn 7 Deg - [id number] Implanted:Qty: 1 on 10/15/2018 by Elvin Palmer MD at [facility] N/A: Spine Cervical Core Link [id number] 12/02/2022 [id number] / / [id number] Core Link Anodyne 12mm Level 1 Spine Cervical Anterior Plate Bone - [id number] Implanted:Qty: 1 on 10/15/2018 by Elvin Palmer MD at [facility] N/A: Spine Cervical Core Link / / Core Link Anodyne 4mm 14mm Variable Angle Self Tap Spine Cervical Screw - [id number] Implanted:Qty: 4 on 10/15/2018 by Elvin Palmer MD at [facility] N/A: Spine Cervical Core Link / / Screw Bone Biased Angle L14 Mm Od3.5 Mm Cephelad Caudal Nonsterile Posterior Occipital Cervical Thoracic System 3500 Series - [id number] Implanted:Qty: 4 on 01/20/2019 by Elvin Palmer MD at [facility] N/A: Spine Cervical Core Link [id number] / / Screw Set Spinal 3500 Series - [id number] Implanted:Qty: 4 on 01/20/2019 by Elvin Palmer MD at [facility] N/A: Spine Cervical Core Link 11552-96 / / Core Link [id number] Vesta 3.5mm 50mm Line Prebent Jin Spinal Nonsterile 3500 Series - [id number] Implanted:Qty: 1 on 01/20/2019 by Elvin Palmer MD at [facility] N/A: Spine Cervical Core Link [id number] / / Core Link [id number] Vesta Screw Set 5500 Series - Sna - [id number] Implanted:Qty: 4 on 06/20/2019 by Elvin Palmer MD at [facility] N/A: Back Core Link 82615-40 / NA / Core Link [id number] Vesta 5.5mm 35mm Line Prebent Jin Spinal Nonsterile 5500 Series - Sns - [id number] Implanted:Qty: 2 on 06/20/2019 by Elvin Palmer MD at [facility] N/A: Back Core Link [id number] / NS / Isto [employer]Force [employer]c [id number] Inqu Paste Mix Plus Head Porter Baggage 10cc Bone Graft Hyaluronic Acid Poly - Sna - [id number] Implanted:Qty: 1 on 06/20/2019 by Elvin Palmer MD at [facility] N/A: Back Isto [employer] [id number] 01/19/2021 [id number] / NA / [id number] Core Link [id number] Vesta 6.5mm 40mm Spine Pedicle Screw Bone 5500 Series - Sna - [id number] Implanted:Qty: 4 on 06/20/2019 by Elvin Palmer MD at [facility] N/A: Back Core Link 01875-54 / NA / Cerapedics Inc 700-025 I Factor Allograft Putty Syringe Graft 2.5cc Bone - [id number] Implanted:Qty: 1 on 11/26/2020 by Elvin Palmer MD at [facility] N/A: Spine Cervical Cerapedics Inc 09/08/2023 700-025 / / [id number] Cage Foundation 3d Cervical 14.6m60w4sr 7 Deg - [id number] Implanted:Qty: 1 on 11/26/2020 by Elvin Palmer MD at [facility] N/A: Spine Cervical Core Link 10/25/2024 [id number] / / [id number] Core Link Anodyne 12mm Level 1 Spine Cervical Anterior Plate Bone - [id number] Implanted:Qty: 1 on 11/26/2020 by Elvin Palmer MD at [facility] N/A: Spine Cervical Core Link / / Core Link Anodyne 4mm 14mm Variable Angle Self Tap Spine Cervical Screw - [id number] Implanted:Qty: 4 on 11/26/2020 by Elvin Palmer MD at [facility] N/A: Spine Cervical Core Link / / [...] HEPATITIS C ANTIBODY STAT 10/15/2018 11:20 AM CLINIC ASSISTANT from Last 3 Months or Most Recently Relevant to Health Maintenance Results * DEVICE CHECK - REMOTE (05/02/2025 9:10 AM CDT) Anatomical Region Laterality Modality Other Narrative 05/02/2025 12:23 PM CDT Kink[employer] Search Tools Bio-monitor III Loop Recorder. Dx; Syncope, PSVT, AT, RVOT VT s/p ablation. DOI 03/05/2022-[facility]. AcadiaSoftroniRaynforest remote monitoring. Routine ILR remote. Normal device [...] am. Ectopy beats: 2475. See scanned report. Gemmus Pharmaronik remote f/u 06/12/2025. ROV with Jessica Leger NP scheduled 05/16/2025. Shelley Looney, RN [facility] Chelly Pierce MD [facility] PRO CEDURES Final Result * DEVICE CHECK - REMOTE (03/21/2025 11:58 AM CDT) Anatomical Region Laterality Modality Other Narrative 03/29/2025 4:38 PM CDT [employer] Search [employer] Bio-monitor III Loop Recorder. Dx; Syncope, PSVT, AT, RVOT VT s/p ablation. DOI 03/05/2022-[facility]. Biotronik remote monitoring. Routine ILR remote. Normal [...] BioTronik remote f/u 05/01/2025. Shelley Looney RN us [facility] Chelly Pierce MD CV CARDIAC SERVICES PRO CEDURES Final Result * Hepatitis C antibody (10/15/2018 11:20 AM CLINIC ASSISTANT) Hep C Ab Non-Reactiv e Non-Reactiv e [facility] Blood specimen (specimen) 10/15/2018 11:20 AM CLINIC ASSISTANT 10/15/2018 11:41 AM CLINIC ASSISTANT Narrative [facility] - 10/15/2018 12:25 PM CLINIC ASSISTANT us Notinfile Unknown LAB MICROBIOLOGY - GENERAL ORD ERABLES Final Result [facility] [address] [place] [address] from Last 3 Months or Most Recently Relevant to Health Maintenance Insurance MEDICARE TNA MEDICARE AETNA MEDICARE AETNA SENIOR SUPPLEMENT Advance Directives For more information, please contact: [phone] * Full Code (Latest Code Status on File) Date Activated Date Inactivated Comments 09/07/2023 10:10 AM 09/07/2023 2:44 PM * Full Code Date Activated Date Inactivated Comments 06/20/2019 12:01 PM 06/20/2019 6:34 PM * Full Code Date Activated Date Inactivated Comments 10/15/2018 2:08 PM 10/15/2018 4:39 PM * Full Code Date Activated Date Inactivated Comments 07/16/2018 2:30 PM 07/16/2018 6:36 PM Care Teams Contracts Law Professor Relationship Specialty Start Date End Date Per Samson MD PCP - General Family Practice 06/01/23 Coretta Childers MD Consulting Physician Cardiology 08/28/23 Tima [place] [address] Consulting Physician Otolaryngology 08/28/23
--- OUTSIDE RECORDS SUMMARY | 2025-05-22 09:07 | XMS_ITS | Encounter Summary ---
Author Organization [facility] Address [address] [place] [address] Care Team Providers Care Product Marketing Specialist Name Role Phone Edy Aviles DO Primary Care Provider [phone] Encounter Details Date Type Department Care Team (Late st Contact Info) Description 02/24/2024 Lab Requisition [facility] - DermPath Lab [address] [facility] [place] [phone] Israel Lang [place] [address] Social History Tobacco Use Types Packs/Day Years Used Date Smoking Tobacco: Every Day Cigarettes 0.5 52.6 Started: 10/25/1972 Smokeless Tobacco: Never Alcohol Use [...] on file Legal Sex Female 6:21 AM A CLASS LINEMAN Gender Identity Not on file Sexual Orientation Not on file documented as of this encounter Functional Status * Is person deaf or have serious hearing difficulty? Answer Date of Assessment Author No 10/15/2021 1:48 PM Mami Alegre RN * Is person blind or have serious difficulty seeing? Answer Date of Assessment Author No 10/15/2021 1:48 PM Mmai Alegre RN * Does person have serious difficulty walking/climbing stairs? Answer Date of Assessment Author Yes 10/15/2021 1:48 PM Mami Alegre RN * Does person have difficulty dressing/bathing? Answer Date of Assessment Author No 10/15/2021 1:48 PM Mami Alegre RN * Does person have difficulty doing errands alone? Answer Date of Assessment Author No 10/15/2021 1:48 PM Mami Alegre RN documented as of this encounter Mental Status * Does person have difficulty concentrating/remembering/making decisions? Answer Entry Date Author No 10/15/2021 1:48 PM Mami Alegre RN documented in this encounter Plan of Treatment Not on file documented as of this encounter Goals Goal Patient Goal Type Associated Problems Recent Progress Patient-Stated? Author Mobility General No Nancy Beltran RN Note: Expected end date: 3 months [...] AM CDT) Case Report Dermatopathology Report Case: [id number] Authorizing Provider: Israel Lang MD Collected: 02/23/2024 12:00 AM Ordering Location: [facility] - Received: 02/25/2024 06:55 AM DermPath Lab Pathologist: Maryanne Olmos MD Specimens: A) - Skin, right paranasal cheek B) - Skin, right cheek C) - Skin, right parietal scalp 1:41 PM T DERMATOPATHOLOGY LABORATORY Final Diagnosis Specimen A. 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 SKIN, right parietal scalp: NEUROFIBROMA (D36.10) 1:41 PM T DERMATOPATHOLOGY LABORATORY at 1341 CDT Clinical History A: R/O BCC vs other B: R/O BCC vs other C: R/O BCC 1:41 PM CDT DERMATOPATHOLOGY LABORATORY Gross Description [...] five pieces in aggregate shave biopsy measuring 52i26d1 mm. Jar 0. 1:41 PM T DERMATOPATHOLOGY [...] determined by the Dermatopathology Laboratory at [facility], directed by Dr. Yessi Jackman. These tests need not be, and therefore are not, approved by the [place] Food and Drug Administration. The tests are used for clinical purposes. Billing Codes Specimen Charges Stain Charges 10595 78229 39769 1 1 1 4 1:41 PM CDT DERMATOPATHOLOGY LABORATORY Embedded Images 4 1:41 PM CDT DERMATOPATHOLOGY LABORATORY Pathology/Cytology TISSUE SPECIMEN FROM SKIN / Unknown 02/23/2024 02/25/2024 6:55 AM CDT Miscellaneous samples (specimen) TISSUE SPECIMEN FROM SKIN / Unknown 02/23/2024 02/25/2024 6:55 AM CDT Miscellaneous samples (specimen) TISSUE SPECIMEN FROM SKIN / Unknown 02/23/2024 02/25/2024 6:55 AM CDT Israel Lang MD LAB - PATHOLOGY/CYTOLOGY ORD ERABLES Final Result DERMATOPATHOLOGY LABORATORY [facility] - Department of Dermatology Specialized Medicine [address] [place] [address], [address] [phone] documented in this encounter Visit Diagnoses Not on filedocumented in this encounter Care Teams Product Marketing Specialist Relationship Specialty Start Date End Date Edy Aviles DO [address] [place] [address] PCP - General 06/17/22 documented as of this encounter
--- OUTSIDE RECORDS SUMMARY | 2025-05-22 09:07 | XMS_ITS | Encounter Summary ---
Author Organization [facility] Address [address] [place] [address] Care Team Providers Care Concaving Machine Operator Name Role Phone Edy Aviles DO Primary Care Provider [phone] Encounter Details Date Type Department Care Team (Late st Contact Info) Description 12/19/2020 Lab Requisition [facility] Care DermPath Lab [address] [facility] [place] [phone] [place] [address] Social History Tobacco Use Types Packs/Day Years Used Date Smoking Tobacco: Never Assessed Comments Unknown Sex and Gender Information Value Date Recorded Sex Assigned at Not on file Legal Sex Female 6:21 AM PROCESS ARTIST Gender Identity Not on file Sexual Orientation Not on file documented as of this encounter Plan of Treatment Not on file documented as of this encounter Procedures Procedure Name Priority Date/Time Associated Diagnosis Comments DERMATOPATHOLOGY Routine 12/18/2020 12:0 0 AM PROCESS ARTIST documented in this encounter Results * DERMATOPATHOLOGY (12/18/2020 12:00 AM PROCESS ARTIST) Case Report Dermatopathology Report Case: [id number] Authorizing Provider: Israel Lang MD Collected: 12/18/2020 12:00 AM Ordering Location: [facility] D[facility] Received: 12/19/2020 11:37 AM Pathologist: Nata Olmos MD Specimen: Skin, left ear superior rim 4:54 PM [facility] DERMATOPATHOLOGY LABORATORY Final Diagnosis Specimen A. 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 4:54 PM [facility] DERMATOPATHOLOGY LABORATORY Gross Description Specimen A: Received is one formalin filled container labeled with the patient's name and designated left ear superior rim. The specimen consists of a shave biopsy (4 pieces) measuring 4m8a4ow, 1u8c0rn, 7d8z8ja, & 9r6g7xl. Jar 0. 4:54 PM [facility] DERMATOPATHOLOGY LABORATORY Microscopic Description Specimen A. SKIN, left ear superior rim: There is epidermal hyperplasia overlying dilated blood vessels and fibroplasia. 4:54 PM [facility] DERMATOPATHOLOGY LABORATORY Disclaimer An external and internal positive and negative controls are appropriate for the histochemical, immunohistochemical and immunofluorescence stain(s) in this case (if any), except where stated explicitly. The performance characteristics of the stain(s) cited in this report were developed and its performance characteristic determined by the Dermatopathology Laboratory at [facility], directed by Dr. Yessi Jackman. These tests need not be, and therefore are not, approved by the [place] Food and Drug Administration. The tests are used for clinical purposes. Billing Codes Specimen Charges Stain Charges 75037 1 4:54 PM [facility] DERMATOPATHOLOGY LABORATORY Embedded Images 4:54 PM [facility] DERMATOPATHOLOGY LABORATORY Pathology/Cytolog y TISSUE SPECIMEN FROM SKIN / Unknown 12/18/2020 12/19/2020 11:37 AM [facility] us Israel Lang MD LAB - PATHOLOGY/CYTOLOGY ORD ERABLES Final Result DERMATOPATHOLOGY LABORATORY [facility] - Department of Dermatology [address], [address] Floor [place], [place] [address] [place] [address] documented in this encounter Visit Diagnoses Not on filedocumented in this encounter Care Teams Concaving Machine Operator Relationship Specialty Start Date End Date Edy Aviles DO [address] [place] [address] PCP - General 06/17/22 documented as of this encounter
== END 2025-05-22 09:00 | disposition home or self-care (01) ==
PROVIDERS: PCP Family Medicine; Visit Provider Internal Medicine Hematology & Oncology
DX: C79.51 Secondary malignant neoplasm of bone (principal); K57.32 Diverticulitis of large intestine without perforation or abscess without bleeding; K63.2 Fistula of intestine; N20.0 Calculus of kidney
CPT/HCPCS: 71260; 74177; Q9967

== ENCOUNTER 2025-07-11 07:43 | Outpatient (CLI) | payer MEDICARE, SELFPAY ==
--- NOTE | ~2025-07-11 | PE_ITS ---
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 10.743 mCi of 18-fluorodeoxyglucose (18-FDG) was administered i.v. Low dose computed tomography (CT) images were acquired from the base of the brain to the proximal thighs for attenuation correction and anatomic localization. Positron emission tomography (PET) images were acquired in the same distribution beginning 58 minutes after injection. Images including fused PET/CT images were reconstructed in axial, coronal, and sagittal planes. Automated exposure control technique was employed. The dose- length product was 868.56mGy-cm. COMPARISON: PET/CT dated 12/29/[address] chest, abdomen and pelvis dated 05/22/2025 FINDINGS: Head/neck: There is symmetric increased activity in the oral cavity, palatine tonsils, anterior cervical paraspinal muscles, laryngeal muscles and ocular muscles without CT correlate, likely physiologic. No pathologically enlarged cervical lymphadenopathy or suspicious foci of increased FDG uptake in the visualized head or neck. Chest: Left internal jugular central venous port catheter with distal tip at the caudal superior vena cava. Mild emphysema. Mild dependent atelectasis in the right lower lobe. The previously seen cluster of small FDG avid nodules along the periphery of a 1.8 cm cavitary lesion in the left lower lobe are no longer visualized. Additional persistent small FDG avid nodule on the left lower lobe along the apex of the diaphragm has also resolved consistent with interval treatment of reported lung cancer. No new or enlarging pulmonary nodules. Heart size is normal. Atherosclerotic coronary artery calcific location. No pericardial effusion. Thoracic aorta is normal in caliber. The previously seen mildly enlarged and prominently FDG avid left hilar and mediastinal lymphadenopathy has resolved. No significant interval change in a 1.6 x 0.6 cm FDG avid right axillary lymph node with maximal SUV of 3.0. No other pa thologically enlarged or abnormally FDG avid thoracic lymphadenopathy. Left pectoral implantable personnel monitor. Abdomen/pelvis/proximal thighs: Physiologic renal accumulation and excretion of FDG activity in the kidneys, bladder and along portions of ureters. Photopenic defect associated with a 2.7 cm cyst at the upper pole of the right kidney. There is bilateral nonobstructing nephrolithiasis with the largest stones measuring up to 1.1 cm at the lower poles of both the left and right kidneys. Interval decrease in size of bilobed FDG avid lesion in the right hepatic lobe which currently measures 2.0 x 1.1 cm with no evident increased FDG uptake. This lesion was previously biopsied demonstrating metastatic squamous cell carcinoma. A third hypodense FDG avid lesion more cephalad the right hepatic lobe near the confluence of the right middle hepatic vein and inferior vena cava is now nearly indiscernible also with loss of the prior prominent FDG uptake. Findings consistent with response to treatment of metastatic disease. There are 2 additional unchanged low- attenuation lesions in the right hepatic lobe which are without abnormal FDG uptake on either the current or prior study which are without enhancement on prior MRI dated 12/02/2024 most consistent with hepatic cysts. The gallbladder, pancreas, spleen and bilateral adrenal glands are normal. Mild uptake scattered throughout the bowels without radiologic correlate, also likely physiologic. There are several scattered diverticula. There is increased FDG activity extending along the linear tract of soft tissue density extending between the upper vagina, the sigmoid colon and a loop of small bowel in the deep pelvis likely representing an rywdhs-kman-rvtmhed fistula. No other abnormal foci of increased FDG uptake or pathologically enlarged lymphadenopathy in the abdomen, pelvis or proximal thighs. Musculoskeletal: Again seen are postoperative change of instrumented C3-C4 and C6-C7 anterior spinal fusion with additional intraspinal effusion without instrumentation at C4-C5 and C5-C6. Instrumented L4-L5 posterior spinal fusion with bilateral vertical vinayak and pedicle screw fixation. There is been interval resolution or marked decrease in degree of FDG activity associated with multiple metastatic bone lesions in the axial and appendicular skeleton. Mixed lytic atherosclerotic bone lesions are seen associated with many of the previously FDG avid lesions in the lower thoracic and upper lumbar vertebral bodies and posterior elements. There is mild residual uptake associated with one of the lesions in the posterior right ninth rib which may be related to secondary healing pathologic fracture as opposed to the underlying metastatic disease. For reference a large sclerotic lesion at the left scapula involving the glenoid and base of the acromion is demonstrated maximal SUV of 18.5, currently 1.9. IMPRESSION: 1. Interval response to treatment with resolution of abnormal FDG uptake associated with numerous sclerotic bone lesions scattered throughout the axial and appendicular skeleton, resolution of several pulmonary nodules in the left lower lobe, decreased size and resolution of abnormal FDG activity with left hilar and mediastinal lymph nodes and decrease in size and resolution of abnormal FDG uptake with a couple hepatic nodules 1 recent biopsy-proven metastatic disease. 2. Mild FDG uptake associated with an unchanged still normal-sized right axillary lymph node more likely reactive than metastatic. No other lesions suspicious for metastatic disease. 3. Diverticulosis with increased FDG uptake extending along an unchanged likely vvuinn-ixye-tufdwor fistula. Reviewed, dictated and finalized at location A. IMPRESSION: 1. Interval response to treatment with resolution of abnormal FDG uptake associ ated with numerous sclerotic bone lesions scattered throughout the axial and ap pendicular skeleton, resolution of several pulmonary nodules in the left lower lobe, decreased size and resolution of abnormal FDG activity with left hilar an d mediastinal lymph nodes and decrease in size and resolution of abnormal FDG u ptake with a couple hepatic nodules 1 recent biopsy-proven metastatic disease. 2. Mild FDG uptake associated with an unchanged still normal-sized right axilla ry lymph node more likely reactive than metastatic. No other lesions suspicious for metastatic disease. 3. Diverticulosis with increased FDG uptake extending along an unchanged likely kutfit-nofy-gahxqkl fistula.
--- OUTSIDE RECORDS SUMMARY | 2025-07-11 07:48 | XMS_ITS | Encounter Summary ---
Author Organization [facility] Address [address] [place] [address] Care Team Providers Care Barn And Property Manager Name Role Phone Edy Aviles DO Primary Care Provider [phone] Encounter Details Date Type Department Care Team (Late st Contact Info) Description 12/19/2020 Lab Requisition [facility] Care DermPath Lab [address] [facility] [place] [id number] Israel [place] [address] Social History Tobacco Use Types Packs/Day Years Used Date Smoking Tobacco: Never Assessed Comments Unknown Sex and Gender Information Value Date Recorded Sex Assigned at Not on file Legal Sex Female 6:21 AM MEAT SERVICE TEAM MEMBER Gender Identity Not on file Sexual Orientation Not on file documented as of this encounter Plan of Treatment Not on file documented as of this encounter Procedures Procedure Name Priority Date/Time Associated Diagnosis Comments DERMATOPATHOLOGY Routine 12/18/2020 12:0 0 AM MEAT SERVICE TEAM MEMBER documented in this encounter Results * DERMATOPATHOLOGY (12/18/2020 12:00 AM MEAT SERVICE TEAM MEMBER) Case Report Dermatopathology Report Case: [id number] Authorizing Provider: Israel Lang MD Collected: 12/18/2020 12:00 AM Ordering Location: [facility] Received: 12/19/2020 11:37 AM Pathologist: Nata Olmos MD Specimen: Skin, left ear superior rim 4:54 PM [facility] DERMATOPATHOLOGY LABORATORY Final Diagnosis Specimen A. 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 4:54 PM [facility] DERMATOPATHOLOGY LABORATORY Gross Description Specimen A: Received is one formalin filled container labeled with the patient's name and designated left ear superior rim. The specimen consists of a shave biopsy (4 pieces) measuring 8c8u4dw, 3s8m5bg, 5p7d6is, & 1e7q5ef. Jar 0. 4:54 PM [facility] DERMATOPATHOLOGY LABORATORY Microscopic Description Specimen A. [...] characteristic determined by the Dermatopathology Laboratory at [facility], directed by Dr. Yessi Jackman. These tests need not be, and therefore are not, approved by the [place] Food and Drug Administration. The tests are used for clinical purposes. Billing Codes Specimen Charges Stain Charges 16511 1 4:54 PM [facility] DERMATOPATHOLOGY LABORATORY Embedded Images 4:54 PM [facility] DERMATOPATHOLOGY LABORATORY Pathology/Cytolog y TISSUE SPECIMEN FROM SKIN / Unknown 12/18/2020 12/19/2020 11:37 AM [facility] us Israel Lang MD LAB - PATHOLOGY/CYTOLOGY ORD ERABLES Final Result DERMATOPATHOLOGY LABORATORY [facility] - Department of Dermatology [address], [address] Floor [place], [place] [address] [place] [address] documented in this encounter Visit Diagnoses Not on filedocumented in this encounter Care Teams Barn And Property Manager Relationship Specialty Start Date End Date Edy Aviles DO [address] [place] [address] PCP - General 06/17/22 documented as of this encounter
--- OUTSIDE RECORDS SUMMARY | 2025-07-11 07:48 | XMS_ITS | Encounter Summary ---
Author Organization [facility] Address [address] [facility] [address] [place] [address] Care Team Providers Care Business Editor Name Role Phone Zafar Reddy MD Primary Care Provider [phone] Sung Mullen MD Primary Care Provider [phone] Zafar Reddy MD Primary Care Provider [phone] Sung Mullen MD Primary Care Provider [phone] Zafar Reddy MD Primary Care Provider [phone] Sung Mullen MD Primary Care Provider [phone] Edy Aviles DO Primary Care Provider [phone] Per Samson MD Primary Care Provider [phone] Coretta Childers MD Unavailable [phone] Tima Henson MD Unavailable [phone] Encounter Details Date Type Department Care Team (Late st Contact Info) Description 03/13/2017 Orders Only [facility] ProviderKamran MD [address] [place] [address] Social History Tobacco Use Types Packs/Day Years Used Date Smoking Tobacco: Every Day Alcohol Use Standard Drinks/Week Comments No 0 (1 standard drink = 0.6 oz pur e alcohol) Comments Unknown Sex and Gender Information Value Date Recorded Sex Assigned at Not on file 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 Historical Provider [facility] CARDIAC SERVICES PROCE DURES Final Result * CARDIOLOGY REPORT (03/13/2017) Anatomical Region Laterality Modality Other Narrative 03/13/2017 Ordered by an unspecified provider. Historical Provider CV CARDIAC SERVICES PROCE DURES Final Result documented in this encounter Visit Diagnoses Not on filedocumented in this encounter Care Teams Business Editor Relationship Specialty Start Date End Date Zafar Reddy MD [address] [place] [address] PCP - General 06/10/12 11/12/20 Sung Mullen MD [address] [address] PCP - General 11/13/20 11/15/20 Zafar Reddy MD [address] [place] [address] PCP - General 11/16/20 11/22/20 Sung Mullen MD [address] [address] PCP - General 11/23/20 11/25/20 Zafar Reddy MD [address] [place] [address] PCP - General 11/26/20 05/20/21 Sung Mullen MD [address] [place] [address] PCP - General Internal Medicine 05/21/21 06/04/22 Edy Aviles DO [address] [place] [address] PCP - General Internal Medicine 06/05/22 05/31/23 Per Samson MD [address] [place] [address] PCP - General Family Practice 06/01/23 Coretta Childers MD [address] [place] [address] Consulting Physician Cardiology 08/28/23 Tima Henson MD [address] [address] Consulting Physician Otolaryngology 08/28/23 documented as of this encounter
--- OUTSIDE RECORDS SUMMARY | 2025-07-11 07:48 | XMS_ITS | Patient Health Record ---
Author Organization [facility] Address [address] [place] [address] Care Team Providers Care Cistern Room Operator Name Role Phone Jayce Hoffmann Unavailable [phone] Reason For Referral No Information Medications Medication SIG (Take, Route, Frequency, Duration) Notes Start Date End Date Status Sulfamethoxazole-Tri methoprim 800-160 MG Tablet Oral Active busPIRone HCl 5 MG Tablet Oral Active Gabapentin 300 MG Capsule Oral Active traZODone HCl 150 MG Tablet Oral Active Topiramate 25 MG Tablet Oral Active Metoprolol Tartrate 25 MG Tablet Oral Active AFLURIA QD 2020- (36 MOS UP)(PF)60 MCG (15 MCG X4)/0.5 ML IM SYRINGE *Reorder from [employer] for eRx and Interaction Alerts* Active Shingrix 50 mcg/0.5 mL Suspension Reconstituted Intramuscular Active busPIRone HCl 15 MG Tablet Oral Active amLODIPine Besylate 5 MG Tablet Oral Active traZODone HCl 50 MG Tablet Oral Active Minocycline HCl 50 MG Capsule Oral Active Venlafaxine HCl ER 75 MG Capsule Extended Release 24 Hour Oral Active Venlafaxine HCl ER 150 MG Capsule Extended Release 24 Hour Oral Active Amoxicillin 500 MG Capsule Oral Active metroNIDAZOLE 0.75 % Gel External Active Omeprazole 40 MG Capsule Delayed Release Oral Active Lisinopril 10 MG Tablet Oral Active Xarelto 10 MG Tablet Oral Active oxyCODONE-Acetaminop hen 5-325 MG Tablet Oral Active Social History Social History Additional Details Category Social Info Options Details Migrated Social History Migrated Social History Tobacco Years: Current every day smoker 10/31/2020 Plan Of Treatment No Information Insurance Providers Payer Name Payer Address Payer Phone Subscriber Number Group Number Insured Name Patient Relationship to Insured Coverage Start Date Coverage End Date Medicare-I l [place] [address] [place] [phone] [id number] CHRISTINE STEPHENS Self - patient is the insured [place] [employer] [place] [phone] [id number] CHRISTINE STEPHENS Self - patient is the insured
--- OUTSIDE RECORDS SUMMARY | 2025-07-11 07:48 | XMS_ITS | Encounter Summary ---
Author Organization 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) Social History Tobacco Use Types Packs/Day Years Used Date Smoking Tobacco: Never Smokeless Tobacco: Never Alcohol Use Standard Drinks/Week Comments Never 0 (1 standard drink = 0.6 oz pur e alcohol) Comments Unknown Sex and Gender Information Value Date Recorded Sex Assigned at Not on file 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 Gender Identity Not on file Sexual Orientation Not on file documented as of this encounter Plan of Treatment Upcoming Encounters Date Type Department Care Team (Late st Contact Info) Description 07/21/2025 8:30 AM CDT Office Visit [facility] Oncology and Hematology - [address] [place] [address] Chanda Anderson MD [address] [place] [address] documented as of this encounter Visit Diagnoses Diagnosis 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
--- OUTSIDE RECORDS SUMMARY | 2025-07-11 07:48 | XMS_ITS | Encounter Summary ---
Author Organization [facility] Address [address] [place] [address] Care Team Providers Care Oracle Sql Developer Name Role Phone Per Samson MD Primary Care Provider [phone] Encounter Details Date Type Department Care Team (Late Contact Info) Description 07/05/2025 Orders Only [facility] Oncology and Hematology [facility] [address] [place] [address] Basil Ludwig MD [address] [facility] [address] [place] [address] Social History Tobacco Use Types Packs/Day Years Used Date Smoking Tobacco: Never Smokeless Tobacco: Never Alcohol Use Standard Drinks/Week Comments Never 0 (1 standard drink = 0.6 oz pur e alcohol) Comments Unknown Sex and Gender Information Value Date Recorded Sex Assigned at Not on file 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 Gender Identity Not on file Sexual Orientation Not on file documented as of this encounter Plan of Treatment Upcoming Encounters Date Type Department Care Team (Late Contact Info) Description 07/21/2025 8:30 AM CDT Office Visit [facility] Oncology and Hematology [facility] [address] [place] [address] Chanda Anderson MD [address] [place] [address] documented as of this encounter Procedures Procedure Name Priority Date/Time Associated Diagnosis Comments URINE CULTURE Routine 06/30/2025 10:39 AM CDT documented in this encounter Results * URINE CULTURE (06/30/2025 10:39 AM CDT) Urine us Basil Ludwig MD MICROBIOLOGY - GENERAL ORDERABL ES Final Result documented in this encounter Visit Diagnoses Not on filedocumented in this encounter Care Teams Oracle Sql Developer Relationship Specialty Start Date End Date Per Samson MD [address] [place] [address] PCP - General Family Practice 02/17/25 documented as of this encounter
--- OUTSIDE RECORDS SUMMARY | 2025-07-11 07:48 | XMS_ITS | Clinical Summary ---
Author Organization [facility] Address [address] [place] [address] Care Team Providers Care Gasoline Locomotive Crane Operator Name Role Phone Zafar Reddy MD Primary Care Provider [phone] Allergies Active Allergy Reactions Criticality Noted Date [...] (11/12/2022): Added automatically from request for surgery [id number] Social History Tobacco Use Types Packs/Day Years [...] this topic Insurance MEDICARE AET Care Teams Gasoline Locomotive Crane Operator Relationship Specialty Start Date End Date Zafar Reddy MD [address] [place] [address] PCP - General 05/10/12
--- OUTSIDE RECORDS SUMMARY | 2025-07-11 07:48 | XMS_ITS | Encounter Summary ---
Author Organization [facility] Address [address] [facility] [place] [address] Care Team Providers Care Powerhouse Oiler Name Role Phone Edy Aviles DO Primary Care Provider [phone] Encounter Details Date Type Department Care Team (Late st Contact Info) Description 02/24/2024 Lab Requisition [facility] - DermPath Lab [address] 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 Jar 0. 1:41 PM T DERMATOPATHOLOGY [...] characteristic determined by the Dermatopathology Laboratory at [facility], directed by Dr. Yessi Jackman. These tests need not be, and therefore are not, approved by the [place] Food and Drug Administration. The tests are used for clinical purposes. Billing Codes Specimen Charges Stain Charges 08273 08428 42452 1 1 1 4 1:41 PM CDT [...] DERMATOPATHOLOGY LABORATORY [facility] - Department of Dermatology [facility] Specialized Medicine [address] [place] [address], [address] [phone] documented in this encounter Visit Diagnoses Not on filedocumented in this encounter Care Teams Powerhouse Oiler Relationship Specialty Start Date End Date Edy Aviles DO [address] [place] [address] PCP - General 06/17/22 documented as of this encounter
--- OUTSIDE RECORDS SUMMARY | 2025-07-11 07:48 | XMS_ITS | Clinical Summary ---
Author Organization [facility] Address [address] [place] [address] Care Team Providers Care Home Health Provider Name Role Phone Edy Aviles DO Primary Care Provider [phone] Source Comments [facility],non-owned Affiliates and Associated Physician Practices is amultiple site organization consisting of ambulatory clinics and hospital sitesin [place], [place], [place]. This disclosure is being madepursuant to the Care Everywhere program and may not contain all information available regarding this patient. Last updated 18.[facility] [employer] Allergies Active Allergy Reactions Criticality Noted Date [...] hardware Immunizations Immunization Administration Dates Next Due Learning Hyperdrive primary monoval ent 12+ yr 0.3mL Purple cap 09/08/2021,03/05/2021,02/05/2021 Social History Tobacco Use Types Packs/Day Years Used Date Smoking Tobacco: Every Day Cigarettes 0.5 52.7 Started: 10/25/1972 Smokeless Tobacco: Never Tobacco Cessation:Ready [...] on file Legal Sex Female 6:21 AM HULL AND DECK REMOVER Gender Identity Not on file Sexual Orientation Not on file Last Filed Vital Signs Vital Sign Reading Time Taken Comments Blood Pressure 148/57 10/26/2021 7:27 AM HULL AND DECK REMOVER Pulse 95 10/26/2021 7:27 AM HULL AND DECK REMOVER Temperature 36.8 C (98.3 F) 10/26/2021 7:27 AM HULL AND DECK REMOVER Respiratory Rate 16 10/25/2021 10:58 PM HULL AND DECK REMOVER Oxygen Saturation 100% 10/26/2021 7:27 AM HULL AND DECK REMOVER Inhaled Oxygen Concentration 40% 10/25/2021 1 2:10 PM HULL AND DECK REMOVER Weight 85.7 kg (189 lb) 07/08/2022 9:04 [...] 3-4 weeks. Medical Devices Implanted Type Area Drying Oven Attendant Device Identifier Shelf Expiration Date Model / Serial / Lot Pin Hlf 255mm 5mm Jtx Lng Ss 35mm Extfix Implanted:Qty: 2 on 10/11/2021 by Jovon Maloney DO at [facility] Left: [employer] [id number] / / Pin Hlf 40mm 5mm Jtx Lng Ti Ntrd Extfix Implanted:Qty: 2 on 10/11/2021 by Jovon Maloney DO at [facility] Left: [employer] [id number] / / Bar Extfix 200mm Jtx Cfbr Nonster Disp Implanted:Qty: 2 on 10/11/2021 by Jovon Maloney DO at [facility] Left: [employer] [id number] / / Screw 3.5mm 46mm Ft Hex Drv Nlckg Fly Implanted:Qty: 1 on 10/25/2021 by Jovon Maloney DO at [facility] Left: [employer] [id number] / / Screw 3.5mm 50mm Ft Nonlock Hex Drv Elb Implanted:Qty: 2 on 10/25/2021 by Jovon Maloney DO at [facility] Left: [employer] [id number] / / Screw 3.5mm 55mm Ft Slf-Tap Hex Lopro Implanted:Qty: 1 on 10/25/2021 by Jovon Maloney DO at [facility] Left: [employer] 8150-37-055 / / Screw 3.5mm 65mm T15 Lck Slf-Tap Tip Tpr Implanted:Qty: 3 on 10/25/2021 by Jovon Maloney, DO at [facility] Left: [employer] [id number] / / Screw 3.5mm 70mm T15 Lck Slf-Tap Tip Tpr Implanted:Qty: 2 on 10/25/2021 by Jovon Maloney, DO at [facility] Left: [employer] [id number] / / Plate 5 Hl Lck Lopro Dist Blt Tip Tib Lt Implanted:Qty: 1 on 10/25/2021 by Jovon Maloney, DO at [facility] Left: [employer] [id number] / / Screw 3.5mm 65mm 2.2mm Mldir Lck Sq Drv Implanted:Qty: 1 on 10/25/2021 by Jovon Maloney, DO at [facility] Left: [employer] [id number] / / Screw 3.5mm 80mm Sq Drv Nonlock Lopro Implanted:Qty: 1 on 10/25/2021 by Jovon Maloney, DO at [facility] Left: [employer] [id number] / / Screw 3.5mm 75mm T15 Lck Slf-Tap Tip Tpr Implanted:Qty: 1 on 10/25/2021 by Jovon Maloney, DO at [facility] Left: [employer] [id number] / / Plate 5 Hl Lopro Lck Ulna Olcrn Dist 61 Implanted:Qty: 1 on 10/25/2021 by Jovon Maloney, DO at [facility] Left: [employer] [id number] / / Screw 3.5mm 34mm Ft Nonlock Hex Drv Elb Implanted:Qty: 1 on 10/25/2021 by Jovon Maloney, DO at [facility] Left: [employer] [id number] / / Screw 3.5mm 38mm Ft Slf-Tap Hex Lopro Implanted:Qty: 1 on 10/25/2021 by Jovon Maloney, DO at [facility] Left: [employer] [id number] / / Screw 3.5mm 40mm Ft Slf-Tap Hex Lopro Implanted:Qty: 1 on 10/25/2021 by Jovon Maloney DO at [facility] Left: [employer] [id number] / / Explanted Type Area Drying Oven Attendant Device Identifier Shelf Expiration Date Model / Serial / Lot Clamp Extfix Jtx 10.5mm Bar To Bar Mr Sf Explanted:Qty: 2 on 10/11/2021 at [facility] Left: [employer] [id number] / / Screw 3.5mm 55mm Ft Slf-Tap Hex Lopro Explanted:Qty: 1 on 10/25/2021 by Jovon Maloney DO at [facility] Left: [employer] [id number] / / Wire K 1.6mm 6in Hlf Bynt Pnt Ss Fx Explanted:Qty: 4 on 10/25/2021 by Jovon Maloney DO at [facility] Left: [employer] [id number] / / Screw 3.5mm 36mm Ft Slf-Tap Hex Lopro Explanted:Qty: 1 on 10/25/2021 by Jovon Maloney DO at [facility] Left: [employer] [id number] / / Procedures Procedure Name Priority Date/Time Associated Diagnosis Comments BASIC METABOLIC PANEL (CALCIUM TOTAL) Routine 10/26/2021 2:31 AM HULL AND DECK REMOVER Closed fracture of left tibial plateau, initial encounter from Last 3 Months or Most Recently Relevant to Health Maintenance Results * (ABNORMAL) BASIC METABOLIC PANEL (CALCIUM TOTAL) (10/26/2021 2:31 AM HULL AND DECK REMOVER) BUN 14 7 - 26 mg/dL 10/26/2021 3:29 AM [facility] Creatinine 0.95 0.56 - 0.96 mg/dL 10/26/2021 3:29 AM [facility] Sodium 134(L) 136 - 145 mmol/L 10/26/2021 3:29 AM [facility] Potassium 4.2 3.5 - 4.5 mmol/L 10/26/2021 3:29 AM [facility] Chloride 102 98 - 107 mmol/L 10/26/2021 3:29 AM [facility] CO2 25 22 - 29 mmol/L 10/26/2021 3:29 AM [facility] Glucose 106 70 - 115 mg/dL 10/26/2021 3:29 AM [facility] Calcium 8.9 8.4 - 10.2 mg/dL 10/26/2021 3:29 AM [facility] Anion Gap 11 8 - 18 10/26/2021 3:29 AM [facility] BUN/Creatinine Ratio 15 7 - 23 10/26/2021 3:29 AM [facility] Osmolality Calculated 279 270 - 300 mOsm/kg 10/26/2021 3:29 AM [facility] eGFR by CKD-EPI 63(L) >=90 mL/min/1.7 3 m2 10/26/2021 3:29 AM [facility] Blood BLOOD SPECIMEN / Unknown Lab Venipuncture / Unknown 10/26/2021 2:31 AM [facility] 10/26/2021 3:01 AM [facility] Jovon Maloney DO LAB - CHEMISTRY ORDERABLES Fin al Result [facility] [address] [place] [address], [facility] [phone] from Last 3 Months or Most Recently Relevant to Health Maintenance Insurance MEDICARE AETNA AETNA MEDICARE AETNA SELF PAY NO INSURANCE Member Subscriber Plan / Payer (Ef fective for All Dates) Name:Frannie Palma Member ID:Not on file Relation to Subscriber:Not on file Name:KATFRANNIE Villalobos Subscriber ID:Not on file (Home) Address: [place] [address] Payer ID:Not on file Group ID:Not on file Type:Self Pay Address: [place], [place] Advance Directives * Full Code (Latest Code Status on File) Date Activated Date Inactivated Comments 10/25/2021 1:30 PM 10/26/2021 1:32 PM * Full Code Date Activated Date Inactivated Comments 10/11/2021 12:36 PM 10/15/2021 3:44 PM Care Teams Home Health Provider Relationship Specialty Start Date End Date Edy Aviles DO [address] [place] [address] PCP - General 06/17/22
--- OUTSIDE RECORDS SUMMARY | 2025-07-11 07:48 | XMS_ITS | Clinical Summary ---
[facility] Address [address] [place] [address] Care Team Providers Care Director Of Optimization Name Role Phone Per Samson MD Primary Care Provider [phone] Allergies No known active allergies Medications atorvastatin (LIPITOR) 20 mg tablet Take 20 mg by mouth daily. Active bumetanide (BUMEX) 2 mg tablet Take 2 mg by mouth daily. 08/29/20 24 Active metOLazone (ZAROXOLYN) 2.5 mg tablet Take 2.5 mg by mouth daily. 04/28/20 24 Active omeprazole (PriLOSEC) 40 mg Capsule, Delayed [...] mouth daily. Active naloxone (NARCAN) 4 mg/spray [place], Non-Aerosol EMERGENCY USE ONLY: Administer 1 spray (4 mg) in one nostril one time. May repeat in alternating nostrils every 2-3 min until responsive or EMS arrives. 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 150 mL 1 03/29/20 25 Active zolpidem (AMBIEN) 5 mg tabletIndicatio ns:Insomnia, unspecified type Take 1 Tablet (5 mg) by mouth nightly as needed for Insomnia. 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 Max Daily Amount: 4 Tablets 90 Tablet 05/29/20 25 Active methylPREDNISol one (MEDROL DOSPACK) 4 mg Tablets, Dose Pack Use as directed 21 Tablet 06/21/20 25 Active benzonatate (TESSALON) 200 mg capsule Take 1 Capsule (200 mg) by mouth 3 times daily as needed for Cough. 30 Capsule 1 06/21/20 25 Active gabapentin (NEURONTIN) 300 mg capsule Take 1 Capsule (300 mg) by mouth 2 times daily. 60 Capsule 06/21/20 25 Active benzonatate (TESSALON) 200 mg capsule Take 1 Capsule (200 mg) by mouth 3 times daily as needed for Cough. 30 Capsule 1 04/19/20 25 025 Discontinu ed(Alterna te therapy prescribed ) gabapentin (NEURONTIN) 300 mg capsule Take 1 Capsule (300 mg) by mouth 2 times daily. 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) 07/05/2025 Orders Only [facility] - [place] [address] Basil Ludwig MD 07/04/2025 Telephone [facility] - [place] [address] Basil Ludwig MD Cough 07/03/2025 Telephone [facility] - [place] [address] [place] [id number] Basil Ludwig MD Blurred Vision 06/30/2025 Telephone [facility] - [place] [address] [place] [id number] Basil Ludwig MD UTI Symptoms 06/26/2025 Orders Only [facility] - [place] [address] [place] [address] Basil Ludwig MD 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) 06/21/2025 8:30 AM CDT Office Visit [facility] - [place] [address] [place] [phone] Basil Ludwig MD 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) (Primary Dx) 06/21/2025 Orders Only [facility] - [place] [address] [place] [phone] Basil Ludwig MD 06/13/2025 External Device Data STL ABSTRACTION Provider, Abstract 06/12/2025 Orders Only [facility] - [place] [address] Basil Ludwig MD 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) 06/01/2025 Orders Only [facility] - [place] [address] [place] [address] Basil Ludwig MD 05/31/2025 Orders Only [facility] - [place] [address] [place] [address] Basil Ludwig MD 05/30/2025 Orders Only [facility] - [place] [address] [place] [address] Basil Ludwig MD 05/29/2025 11:30 AM CDT Office Visit [facility] [address] Basil Ludwig MD Insomnia, unspecified type (Primary Dx); 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) 05/26/2025 Orders Only [facility] - [place] [address] [place] [phone] Basil Ludwig MD 05/24/2025 External Device Data STL ABSTRACTION Provider, Abstract 05/24/2025 External Device Data STL ABSTRACTION Provider, Abstract 05/24/2025 Refill [facility] - [place] [address] [place] [phone] Basil Ludwig MD 05/15/2025 Orders Only [facility] - [place] [address] [place] [phone] Basil Ludwig MD 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) 05/10/2025 8:30 AM CDT Office Visit [facility] - [place] [address] [place] [address] Basil Ludwig MD 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) (Primary Dx) 05/10/2025 Orders Only [facility] - [place] [address] [place] [phone] Basil Ludwig MD 05/02/2025 External Device Data STL ABSTRACTION Provider, Abstract 05/02/2025 Refill [facility] - [place] [address] [place] [id number] Basil Ludwig MD 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) 05/01/2025 Orders Only [facility] - [place] [address] [place] [id number] Basil Ludwig MD 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) 04/19/2025 8:30 AM CDT Office Visit [facility] - [place] [address] [place] [phone] Basil Ludwig MD 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) (Primary Dx) 04/19/2025 Orders Only [facility] - [place] [address] [place] [phone] Basil Ludwig MD 04/17/2025 Orders Only [facility] - [place] [address] [place] [phone] Basil Ludwig MD 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) from Last 3 Months Family History Medical [...] on file Legal Sex Female 2:15 PM ISSUE CLERK Gender Identity Not on file Sexual Orientation Not on file Last Filed Vital Signs Vital Sign Reading Time Taken Comments Blood Pressure 127/65 06/21/2025 8:33 AM CDT Pulse 104 06/21/2025 8:33 AM CDT Temperature 36.8 C (98.2 F) 06/21/2025 8:33 AM CDT Respiratory Rate 15 06/21/2025 8:33 AM CDT Oxygen Saturation 98% 06/21/2025 8:33 AM CDT Inhaled Oxygen Concentration - - Weight 68.9 kg (152 lb) 06/21/2025 8:33 AM CDT Height 154.9 cm (5' 1) 01/04/2025 11:41 AM ISSUE CLERK Body Mass Index 28.72 01/04/2025 11:41 AM ISSUE CLERK Plan of Treatment Upcoming Encounters Date Type Department Care Team (Late st Contact Info) Description 07/21/2025 8:30 AM CDT Office Visit [facility] H[facility]ology - [place] [address] [place] [address] Chanda Anderson MD [address] [place] [address] Health Maintenance Due Date Last Done Comments Pre-Diabetes and Diabetes Screening 1955 DTAP/TDAP/TD VACCINES (1 - Tdap) 1975 PNEUMOCOCCAL VACCINE 50+ YEA RS (1 of 2 - PCV) 1975 ZOSTER VACCINE (1 of 2) 1975 FIT-DNA Q 3 years 2001 FIT/FOBT Q 1 year 2001 Flex Sig/CT Colonography Q 5 years 2001 COVID-19 Vaccine (2023-2 5 season) 2024 09/08/2021, 03/05/2021, 02/05/2021 BREAST CANCER SCREENING 12/15/2024 12/15/19 24, 12/15/2023, 10/06/2022, Additional history exists INFLUENZA VACCINE (#1) 2025 OSTEOPOROSIS SCREENING 10/06/2027 10/06/2022, 2019 RSV VACCINE (60+ or ) (1 - 1-dose 75+ series) 2031 COLORECTAL SCREENING 06/03/2032 06/03/2022 Colorectal Cancer Screening 06/03/2032 Procedures Procedure Name Priority Date/Time Associated Diagnosis Comments URINE CULTURE Routine 06/30/2025 10:39 AM CDT BASIC METABOLIC PANEL Routine 06/21/2025 12:31 PM CDT COMPREHENSIVE METABOLIC PANEL Routine 06/21/2025 12:29 PM CDT CBC WITH DIFFERENTIAL Routine 05/31/2025 11:49 AM CDT COMPREHENSIVE METABOLIC PANEL Routine 05/29/2025 4:33 PM CDT CBC WITH DIFFERENTIAL Routine 05/29/2025 2:45 PM CDT BASIC METABOLIC PANEL Routine 05/29/2025 8:28 AM CDT CBC WITH DIFFERENTIAL Routine 05/26/2025 2:02 PM CDT COMPREHENSIVE METABOLIC PANEL Routine 05/26/2025 8:04 AM CDT BASIC METABOLIC PANEL Routine 05/10/2025 12:22 PM CDT COMPREHENSIVE METABOLIC PANEL Routine 05/10/2025 12:19 PM CDT BASIC METABOLIC PANEL Routine 04/19/2025 12:24 PM CDT COMPREHENSIVE METABOLIC PANEL Routine 04/19/2025 12:06 PM CDT from Last 3 Months Results * URINE CULTURE (06/30/2025 10:39 AM CDT) Urine us Basil Ludwig MD MICROBIOLOGY - GENERAL ORDERABL ES Final Result * BASIC METABOLIC PANEL (06/21/2025 12:31 PM CDT) Only the most recent of4 resultswithin the time period is included. Blood us Basil Ludwig MD CHEMISTRY ORDERABLES Final Resu lt * COMPREHENSIVE METABOLIC PANEL (06/21/2025 12:29 PM CDT) Only the most recent of5 resultswithin the time period is included. Blood Basil Ludwig MD CHEMISTRY ORDERABLES Final Resu lt * CBC WITH DIFFERENTIAL (05/31/2025 11:49 AM CDT) Only the most recent of3 resultswithin the time period is included. Blood Basil Ludwig MD HEMATOLOGY ORDERABLES Final Res ult from Last 3 Months Insurance MEDICARE PART A AND B [place] [address] Care Teams Director Of Optimization Relationship Specialty Start Date End Date Per Samson MD [address] [place] [address] PCP - General Family Practice 02/17/25
--- OUTSIDE RECORDS SUMMARY | 2025-07-11 07:48 | XMS_ITS | Clinical Summary ---
Author Organization [facility] [address] Address [address] [place] [address] Care Team Providers Care Tape Cutter Name Role Phone Per Samson MD Primary Care Provider [phone] Coretta Childers MD Unavailable [phone] Tima Henson MD Unavailable [phone] Allergies Active Allergy Reactions Criticality Noted Date Comments Codeine Hives Medium Lisinopril Nausea only,Nausea A nd Vomiting Low 08/19/2021 Nausea and abdom pain Nausea and abdom pain Nausea and abdom pain Medications omeprazole (PriLOSEC) 40 mg capsule Take 1 capsule (40 mg total) by mouth 2 (two) times a day Active uvolmdfu-bjj-NM-ly copen-lutein 0.4-300-250 mg-mcg-mcg tabletIndications: Vitamin Deficiency Prevention Take 1 tablet by mouth daily Active cholecalciferol (VITAMIN D-3) 2000 unit capsule Take 1 capsule (2,000 Units total) by mouth daily Active atorvastatin (LIPITOR) 20 mg tabletIndications: Mixed hyperlipidemia Take 1 tablet (20 mg total) by mouth daily 30 tablet 11 08/19/20 21 Active polyethylene glycol (MIRALAX) 17 gram packet [...] (two) times a day 12/30/19 24 Active bumetanide (BUMEX) 2 mg tabletIndications: Lower extremity edema TAKE 1 TABLET BY MOUTH DAILY 30 MINUTES AFTER METOLAZONE 90 tablet 1 08/29/20 24 Active Additional Information Patient taking differently: 1 mg oral As needed, swelling in legs/ankles, Reported on 06/09/2025 traMADoL (ULTRAM) 50 mg tablet Take by mouth every 8 (eight) hours as needed 08/30/20 24 Active calcium carbonate-vitamin D3 (CALTRATE 600 + D) 1500 mg (600 mg elemental) -400 units per tablet Take 600 mg by mouth 2 (two) times a day Active gabapentin (NEURONTIN) 300 mg capsule Oral 05/24/20 25 Active HYDROcodone-acetam inophen (NORCO) 10-325 mg per tablet Take 1 tablet by mouth every 6 (six) hours as needed 05/29/20 25 Active ondansetron ODT (ZOFRAN-ODT) 8 mg disintegrating tablet DISSOLVE ONE TABLET BY MOUTH EVERY 8 HOURS NEEDED FOR NAUSEA OR VOMITING Active Active Problems Problem Noted Date Diagnosed Date Vocal cord nodule 08/28/2023 Hoarseness 08/28/2023 Assessment & Plan (08/28/2023 2:02 PM CDT): She has hoarseness due to vocal polyps. We are scheduling her for surgery. Vocal cord polyps 08/28/2023 Assessment & Plan (09/21/2023 9:12 AM PRESCHOOL PARAPROFESSIONAL): She is doing pretty well. Feels like [...] 0 06/01/2023 Body mass index 40.0-44.9, adult ([facility]) 06/01 Sleep-disordered breathing 09/07/2022 Status post placement of implantable loop record er 03/07/2022 Overview (03/07/2022): [employer] Bio-monitor III Loop Recorder. Dx; Syncope, PSVT, AT, RVOT VT s/p ablation. DOI 03/05/2022-[facility]. [employer] remote monitoring. Dizziness 08/19/2021 Lower extremity edema [...] (10/26/2020): Added automatically from request for surgery [id number] Migraine 08/10/2020 Assessment & Plan (08/10/2020 2:22 [...] neuralgia. 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 Assessment & Plan (10/02/2020 1:29 PM PRESCHOOL PARAPROFESSIONAL): Ms. Palma continues to do well clinically after posterior lumbar decompression fusion at L4-5. She has good alignment. There is no lucency around the hardware. We will continue to follow this over time. Assessment & Plan (11/30/2019 1:51 PM PRESCHOOL PARAPROFESSIONAL): Ms. Palma reports persistent numbness in her [...] spine films. Lumbar stenosis with neurogenic claudication 07/ 10/2019 Overview (05/20/2019): Added automatically from request for surgery [id number] Assessment & Plan (01/22/2023 12:27 PM CDT): [...] physician. Assessment & Plan (01/08/2021 12:53 PM PRESCHOOL PARAPROFESSIONAL): Ms. Palma does not have pain referable [...] time. Assessment & Plan (10/02/2020 1:29 PM PRESCHOOL PARAPROFESSIONAL): Ms. Palma was improved after cervical decompression [...] hour to stretch. FOLLOW UP APPT: With WET WASHER MACHINE in 4 weeks with AP/LAT Cervical spine films. Assessment & Plan (11/24/2018 11:40 AM PRESCHOOL PARAPROFESSIONAL): Patient has new onset symptoms of her [...] patient to schedule on her own at [facility]. We will await the CD to be mailed to our office for Dr. Palmer to review and provide further recommendations. She is to continue the same activity restrictions as outlined prior to surgery. Neuropathic pain 11/24/2018 Assessment & Plan (11/24/2018 11:42 AM PRESCHOOL PARAPROFESSIONAL): For her neuropathic pain and would have [...] (12/16/2018): Added automatically from request for surgery [id number] Cervical spinal stenosis 09/27/2018 Overview (09/27/2018): Added automatically from request for surgery [id number] HNP (herniated nucleus pulposus), lumbar 07/13/2018 03/02/2019 Overview (07/13/2018): Added automatically from request for surgery [id number] Encounters Date Type Department Care Team Description 06/12/2025 7:00 AM CDT Ancillary Procedure [facility] [address] [place] [address] [place] [id number] Status post placement of implantable loop recorder; Paroxysmal supraventricular tachycardia; History of radiofrequency ablation (RFA) procedure for cardiac arrhythmia; Syncope and collapse; RVOT ventricular tachycardia (HCC) 06/09/2025 8:00 AM CDT Office Visit [facility] [address] [place] [phone] Jessica Shoemaker NP Sinus pause (Primary Dx); Paroxysmal supraventricular tachycardia; History of syncope; Status post placement of implantable loop recorder 05/02/[address] [facility] [address] [place], [place] [address] [address] Vy Pierce MD 05/01/2025 7:30 AM CDT Ancillary Procedure [facility] [address] [place], [place] [address] [place] [address] Status post placement of implantable loop recorder; [...] peripa rtum with last EF 61% in 2012 - resolved Cardiac dysrhythmia SVT/ VT - [...] on file Legal Sex Female 11:06 AM PRESCHOOL PARAPROFESSIONAL Gender Identity Not on file Sexual Orientation Not on file Obstetrics History Last Filed Vital Signs Vital Sign Reading Time Taken Comments Blood Pressure 142/70 06/09/2025 8:05 AM CDT Pulse 117 06/09/2025 8:05 AM CDT Temperature 36.4 C (97.5 F) 09/07/2023 10:05 AM CDT Respiratory Rate 18 09/15/2023 9:25 AM PRESCHOOL PARAPROFESSIONAL Oxygen Saturation 98% 06/09/2025 8:05 AM CDT Inhaled Oxygen Concentration - - Weight 69.4 kg (153 lb) 06/09/2025 8:05 AM CDT Height 154.9 cm (5' 1) 06/09/2025 8:05 AM CDT Body Mass Index 28.91 06/09/2025 8:05 AM CDT Plan of Treatment Health Maintenance [...] Completed 01/24/2022 Medical Devices Implanted Type Area Carpet Cleaning Technician Device Identifier Shelf Expiration Date Model / Serial / Lot Loop Recorder [employer] Biomonitor Iii-Left Upper Chest Chest Knee Arthroplasty Right: Knee Left Lower Leg Hardware From Fracture Left: Leg Orth[employer] Inc Os-201 Hemasorb Spatula Wax 2gm Bone Sterile - [id number] Implanted:Qty: 1 on 10/15/2018 by Elvin Palmer MD at [facility] N/A: Spine Cervical [employer] Inc 10/08/2020 OS-201 / / [id number] Cage Foundation 3d Cervical 14.9f70b0ml 7 Deg - [id number] Implanted:Qty: 1 on 10/15/2018 by Elvin Palmer MD at [facility] N/A: Spine Cervical Core Link [id number] 12/02/2022 [id number] / / [id number] Core Link Anodyne 12mm Level 1 Spine Cervical Anterior Plate Bone - [id number] Implanted:Qty: 1 on 10/15/2018 by Elvin Palmer MD at [facility] N/A: Spine Cervical Core Link / / Core Link Anodyne 4mm 14mm Variable Angle Self Tap Spine Cervical Screw - [id number] Implanted:Qty: 4 on 10/15/2018 by Elvin Palmer MD at [facility] N/A: Spine Cervical Core Link [id number] / / Screw Bone Biased Angle L14 Mm Od3.5 Mm Cephelad Caudal Nonsterile Posterior Occipital Cervical Thoracic System 3500 Series - [id number] Implanted:Qty: 4 on 01/20/2019 by Elvin Palmer MD at [facility] N/A: Spine Cervical Core Link [id number] / / Screw Set Spinal 3500 Series - [id number] Implanted:Qty: 4 on 01/20/2019 by Elvin Palmer MD at [facility] N/A: Spine Cervical Core Link [id number] / / Core Link [id number] [place] 3.5mm 50mm Line Prebent Jin Spinal Nonsterile 3500 Series - [id number] Implanted:Qty: 1 on 01/20/2019 by Elvin Palmer MD at [facility] N/A: Spine Cervical Core Link [id number] / / Core Link [id number] [place]ton Screw Set 5500 Series - Sna - [id number] Implanted:Qty: 4 on 06/20/2019 by Elvin Palmer MD at [facility] N/A: Back Core Link [id number] / NA / Core Link [id number] [place] 5.5mm 35mm Line Prebent Jin Spinal Nonsterile 5500 Series - Sns - [id number] Implanted:Qty: 2 on 06/20/2019 by Elvin Palmer MD at [facility] N/A: Back Core Link [id number] / NS / Isto [employer]c [id number] Inqu Paste Mix Plus Forest Ecologist 10cc Bone Graft Hyaluronic Acid Poly - Sna - [id number] Implanted:Qty: 1 on 06/20/2019 by Elvin Palmer MD at [facility] N/A: Back Isto [employer] [id number] 01/19/2021 [id number] / NA / [id number] Core Link [id number] Stockton 6.5mm 40mm Spine Pedicle Screw Bone 5500 Series - Sna - [id number] Implanted:Qty: 4 on 06/20/2019 by Elvin Palmer MD at [facility] N/A: Back Core Link [id number] / NA / Cerapedics Inc 700-025 I Factor Allograft Putty Syringe Graft 2.5cc Bone - [id number] Implanted:Qty: 1 on 11/26/2020 by Elvin Palmer MD at [facility] N/A: Spine Cervical [employer] Inc 09/08/2023 700-025 / / [id number] Cage Foundation 3d Cervical 14.1n22w7wg 7 Deg - [id number] Implanted:Qty: 1 on 11/26/2020 by Elvin Palmer MD at [facility] N/A: Spine Cervical Core Link 10/25/2024 [id number] / / [id number] Core Link Anodyne 12mm Level 1 Spine Cervical Anterior Plate Bone - [id number] Implanted:Qty: 1 on 11/26/2020 by Elvin Palmer MD at [facility] N/A: Spine Cervical Core Link / / Core Link Anodyne 4mm 14mm Variable Angle Self Tap Spine Cervical Screw - [id number] Implanted:Qty: 4 on 11/26/2020 by Elvin Palmer MD at [facility] N/A: Spine Cervical Core Link / / Procedures Procedure Name Priority Date/Time Associated Diagnosis Comments DEVICE CHECK - REMOTE Routine 06/13/2025 7:39 AM CDT Status post placement of implantable loop recorder Paroxysmal supraventricular tachycardia History of radiofrequency ablation (RFA) procedure for cardiac arrhythmia Syncope and collapse RVOT ventricular tachycardia (HCC) DEVICE CHECK - REMOTE Routine 05/02/2025 9:10 AM CDT Status post placement of implantable loop recorder Paroxysmal supraventricular tachycardia History of radiofrequency ablation (RFA) procedure for cardiac arrhythmia Syncope and collapse RVOT ventricular tachycardia (HCC) HEPATITIS C ANTIBODY STAT 10/15/2018 11:20 AM PRESCHOOL PARAPROFESSIONAL from Last 3 Months or Most Recently Relevant to Health Maintenance Results * DEVICE CHECK - REMOTE (06/13/2025 7:39 AM CDT) Anatomical Region Laterality Modality Other Narrative 06/27/2025 9:57 AM CDT [employer] Bio-monitor III Loop Recorder. Dx; Syncope, PSVT, AT, RVOT VT s/p ablation. DOI 03/05/2022-[facility]. [employer] remote monitoring. Routine ILR remote. Normal device function. Battery function-Ok. Presenting rhythm: VS, regular (SR). Medications: Bumex, Lipitor. No auto or patient recorded episodes noted. Counters since last scheduled transmission on 05/02/2025. --2 Tachy (total: 75), egm's ST-SVT @ 150 bpm. --0 Sudden rate drop (total: 7) --0 Symptom (total: 0) --0 AF (total: 1) --0 To (total: 191) --0 Pause (total: 21) Ectopy beats: 2717. See scanned report. [employer] remote f/u 07/24/2025. Shelley Looney RN Vy Pierce MD [facility] PRO CEDURES Final Result * DEVICE CHECK - REMOTE (05/02/2025 9:10 AM CDT) Anatomical Region Laterality Modality Other Narrative 05/02/2025 12:23 PM CDT [employer] Bio-monitor III Loop Recorder. Dx; Syncope, PSVT, AT, RVOT VT s/p ablation. DOI 03/05/2022-[facility]. [employer] remote monitoring. Routine ILR remote. Normal device [...] am. Ectopy beats: 2475. See scanned report. [employer] remote f/u 06/12/2025. ROV with Jessica Leger NP scheduled 05/16/2025. Shelley Looney RN Vy Pierce MD [facility] PRO CEDURES Final Result * Hepatitis C antibody (10/15/2018 11:20 AM PRESCHOOL PARAPROFESSIONAL) Hep C Ab Non-Reactiv e [facility]activ e [facility] Blood specimen (specimen) 10/15/2018 11:20 AM PRESCHOOL PARAPROFESSIONAL 10/15/2018 11:41 AM PRESCHOOL PARAPROFESSIONAL Narrative [facility] - 10/15/2018 12:25 PM PRESCHOOL PARAPROFESSIONAL us Notinfile Unknown LAB MICROBIOLOGY - GENERAL ORD ERABLES Final Result [facility] [address] [place] [address] from Last 3 Months or Most Recently Relevant to Health Maintenance Insurance MEDICARE MEDICARE AETNA MEDICARE AETNA SENIOR SUPPLEMENT Advance Directives For more information, please contact: [phone] * Full Code (Latest Code Status on File) Date Activated Date Inactivated Comments 09/07/2023 10:10 AM 09/07/2023 2:44 PM * Full Code Date Activated Date Inactivated Comments 06/20/2019 12:01 PM 06/20/2019 6:34 PM * Full Code Date Activated Date Inactivated Comments 10/15/2018 2:08 PM 10/15/2018 4:39 PM * Full Code Date Activated Date Inactivated Comments 07/16/2018 2:30 PM 07/16/2018 6:36 PM Care Teams Tape Cutter Relationship Specialty Start Date End Date Per Samson MD PCP - General Family Practice 06/01/23 Coretta Childers MD Consulting Physician Cardiology 08/28/23 Tima Henson MD [address] [place] [address] Consulting Physician Otolaryngology 08/28/23
== END 2025-07-11 07:44 | disposition home or self-care (01) ==
PROVIDERS: PCP Family Medicine; Visit Provider Internal Medicine Hematology & Oncology
DX: C79.51 Secondary malignant neoplasm of bone (principal); C80.1 Malignant (primary) neoplasm, unspecified; K57.90 Diverticulosis of intestine, part unspecified, without perforation or abscess without bleeding
CPT/HCPCS: 78815; A9552

== ENCOUNTER 2025-08-21 07:59 | Outpatient (CLI) | payer MEDICARE, SELFPAY ==
--- OUTSIDE RECORDS SUMMARY | 2025-08-21 08:08 | XMS_ITS | Clinical Summary ---
Author Organization [facility] Address [address] [facility] [place] [address] Care Team Providers Care Hand Lacer Name Role Phone Edy Aviles DO Primary Care Provider [phone] Source Comments [facility],non-owned Affiliates and Associated Physician Practices is amultiple site organization consisting of ambulatory clinics and hospital sitesin [place], [place], [place] and [place]. This disclosure is being madepursuant to the Care Everywhere program and may not contain all information available regarding this patient. 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 Medical Devices Implanted Type Area Attic Fans Mechanic Device Identifier Shelf Expiration Date Model / Serial / Lot Pin Hlf 255mm 5mm Jtx Lng Ss 35mm Extfix Implanted:Qty: 2 on 10/11/2021 by Jovon Maloney DO at [facility] Left: [employer] [id number] / / Pin Hlf 40mm 5mm Jtx Lng Ti Ntrd Extfix Implanted:Qty: 2 on 10/11/2021 by Jovon Maloney DO at [facility] Left: [employer] [id number] / / Bar Extfix 200mm Jtx Cfbr Nonster Disp Implanted:Qty: 2 on 10/11/2021 by Jovon Maloney DO at [facility] Left: [employer] [id number] / / Screw 3.5mm 46mm Ft Hex Drv Nlckg Fly Implanted:Qty: 1 on 10/25/2021 by Jovon Maloney DO at [facility] Left: Tibia Teresa [employer] [id number] / / Screw 3.5mm 50mm Ft Nonlock Hex Drv Elb Implanted:Qty: 2 on 10/25/2021 by Jovon Maloney DO at [facility] Left: [employer] [id number] / / Screw 3.5mm 55mm Ft Slf-Tap Hex Lopro Implanted:Qty: 1 on 10/25/2021 by Jovon Maloney DO at [facility] Left: [employer] [id number] / / Screw 3.5mm 65mm T15 Lck Slf-Tap Tip Tpr Implanted:Qty: 3 on 10/25/2021 by Jovon Maloney, DO at [facility] Left: [employer] 8161-35-065 / / Screw 3.5mm 70mm T15 Lck Slf-Tap Tip Tpr Implanted:Qty: 2 on 10/25/2021 by Jovon Maloney, DO at [facility] Left: [employer]ia [employer] [id number] / / Plate 5 Hl Lck Lopro Dist Blt Tip Tib Lt Implanted:Qty: 1 on 10/25/2021 by Jovon Maloney, DO at [facility] Left: [employer] [id number] / / Screw 3.5mm 65mm 2.2mm Mldir Lck Sq Drv Implanted:Qty: 1 on 10/25/2021 by Jovon Maloney, DO at [facility] Left: [employer] [id number] / / Screw 3.5mm 80mm Sq Drv Nonlock Lopro Implanted:Qty: 1 on 10/25/2021 by Jovon Maloney, DO at [facility] Left: [employer] [id number] / / Screw 3.5mm 75mm T15 Lck Slf-Tap Tip Tpr Implanted:Qty: 1 on 10/25/2021 by Jovon Maloney, DO at [facility] Left: [employer] [id number] / / Plate 5 Hl Lopro Lck Ulna Olcrn Dist 61 Implanted:Qty: 1 on 10/25/2021 by Jovon Maloney, DO at [facility] Left: Tibia [employer] [id number] / / Screw 3.5mm 34mm Ft Nonlock Hex Drv Elb Implanted:Qty: 1 on 10/25/2021 by Jovon Maloney, DO at [facility] Left: [employer] 8150-37-034 / / Screw 3.5mm 38mm Ft Slf-Tap Hex Lopro Implanted:Qty: 1 on 10/25/2021 by Jovon Maloney, DO at [facility] Left: [employer] [id number] / / Screw 3.5mm 40mm Ft Slf-Tap Hex Lopro Implanted:Qty: 1 on 10/25/2021 by Jovon Maloney DO at [facility] Left: [employer]ia [employer] [id number] / / Explanted Type Area Attic Fans Mechanic Device Identifier Shelf Expiration Date Model / Serial / Lot Clamp Extfix Jtx 10.5mm Bar To Bar Mr Sf Explanted:Qty: 2 on 10/11/2021 at [facility] Left: [employer] [id number] / / Screw 3.5mm 55mm Ft Slf-Tap Hex Lopro Explanted:Qty: 1 on 10/25/2021 by Jovon Maloney DO at [facility] Left: [employer] 8150-37-055 / / Wire K 1.6mm 6in Hlf Bynt Pnt Ss Fx Explanted:Qty: 4 on 10/25/2021 by Jovon Maloney DO at [facility] Left: Tibia [employer] [id number] / / Screw 3.5mm 36mm Ft Slf-Tap Hex Lopro Explanted:Qty: 1 on 10/25/2021 by Jovon Maloney DO at [facility] Left: Tibia [employer] [id number] / / Procedures Procedure Name Priority Date/Time Associated Diagnosis Comments BASIC METABOLIC PANEL (CALCIUM TOTAL) Routine 10/26/2021 2:31 AM 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 Closed fracture of left tibial plateau, initial encounter from Last 3 Months or Most Recently Relevant to Health Maintenance Results * (ABNORMAL) BASIC METABOLIC PANEL (CALCIUM TOTAL) (10/26/2021 2:31 AM 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) BUN 14 7 - 26 mg/dL 10/26/2021 3:29 AM [facility] Creatinine 0.95 0.56 - 0.96 mg/dL 10/26/2021 3:29 AM [facility] Sodium 134(L) 136 - 145 mmol/L 10/26/2021 3:29 AM [facility] Potassium 4.2 3.5 - 4.5 [...] Lab Venipuncture / Unknown 10/26/2021 2:31 AM [facility] 10/26/2021 3:01 AM [facility] Jovon Maloney DO LAB - CHEMISTRY ORDERABLES Fin al Result [facility] [address] [place] [address], [facility] [phone] from Last 3 Months or Most Recently Relevant to Health Maintenance [place] [address] AETNA AETNA MEDICARE AETNA SELF PAY NO INSURANCE Member Subscriber Plan / Payer (Ef fective for All Dates) Name:Frannie Palma Member ID:Not on file Relation to Subscriber:Not on file Name:KATFRANNIE Villalobos Subscriber ID:Not on file (Home) Address: [place] [address] Payer ID:Not on file Group ID:Not on file Type:Self Pay Address: [place], [place] Advance Directives * Full Code (Latest Code Status on File) Date Activated Date Inactivated Comments 10/25/2021 1:30 PM 10/26/2021 1:32 PM * Full Code Date Activated Date Inactivated Comments 10/11/2021 12:36 PM 10/15/2021 3:44 PM Care Teams Hand Lacer Relationship Specialty Start Date End Date Edy Aviles DO [address] [place] [address] PCP - General 06/17/22
--- OUTSIDE RECORDS SUMMARY | 2025-08-21 08:08 | XMS_ITS | Clinical Summary ---
Author Organization [facility] [address] Address [address] [place] [address] Care Team Providers Care Contract Management Specialist Name Role Phone Per Samson MD Primary Care Provider [phone] Coretta Childers MD Unavailable [phone] Tima Henson MD Unavailable [phone] Allergies Active Allergy Reactions Criticality Noted Date Comments Codeine Hives Medium Lisinopril Nausea only,Nausea A nd Vomiting Low 08/19/2021 Nausea and abdom pain Nausea and abdom pain Nausea and abdom pain Medications omeprazole (PriLOSEC) 40 mg capsule Take 1 capsule (40 mg total) by mouth 2 (two) times a day Active gdngushy-igs-CF-ly copen-lutein 0.4-300-250 mg-mcg-mcg tabletIndications: Vitamin Deficiency Prevention [...] 08/28/2023 Assessment & Plan (09/21/2023 9:12 AM CONSTRUCTION OR LEAK GANG LABORER): She is doing pretty well. Feels like [...] 0 06/01/2023 Body mass index 40.0-44.9, adult ([facility]) 06/01 Sleep-disordered breathing 09/07/2022 Status post placement of implantable loop record er 03/07/2022 Overview (03/07/2022): IntelliCell™ [employer]iences Bio-monitor III Loop Recorder. Dx; Syncope, PSVT, AT, RVOT VT s/p ablation. DOI 03/05/2022-[facility]. [employer]™ [employer] remote monitoring. Dizziness 08/19/2021 Lower extremity edema [...] (10/26/2020): Added automatically from request for surgery [id number] Migraine 08/10/2020 Assessment & Plan (08/10/2020 2:22 [...] neuralgia. 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 Assessment & Plan (10/02/2020 1:29 PM CONSTRUCTION OR LEAK GANG LABORER): Ms. Palma continues to do well clinically after posterior lumbar decompression fusion at L4-5. She has good alignment. There is no lucency around the hardware. We will continue to follow this over time. Assessment & Plan (11/30/2019 1:51 PM CONSTRUCTION OR LEAK GANG LABORER): Ms. Palma reports persistent numbness in her [...] (05/20/2019): Added automatically from request for surgery [id number] Assessment & Plan (01/22/2023 12:27 PM CDT): [...] physician. Assessment & Plan (01/08/2021 12:53 PM CONSTRUCTION OR LEAK GANG LABORER): Ms. Palma does not have pain referable [...] time. Assessment & Plan (10/02/2020 1:29 PM CONSTRUCTION OR LEAK GANG LABORER): Ms. Palma was improved after cervical decompression [...] hour to stretch. FOLLOW UP APPT: With CARPET LOOM FIXER in 4 weeks with AP/LAT Cervical spine films. Assessment & Plan (11/24/2018 11:40 AM CONSTRUCTION OR LEAK GANG LABORER): Patient has new onset symptoms of her [...] patient to schedule on her own at [facility]. We will await the CD to be mailed to our office for Dr. Palmre to review and provide further recommendations. She is to continue the same activity restrictions as outlined prior to surgery. Neuropathic pain 11/24/2018 Assessment & Plan (11/24/2018 11:42 AM CONSTRUCTION OR LEAK GANG LABORER): For her neuropathic pain and would have [...] She has significant facet hypertrophy at the L2- 3 level without severe compression of the traversing [...] (12/16/2018): Added automatically from request for surgery [id number] Cervical spinal stenosis 09/27/2018 Overview (09/27/2018): Added automatically from request for surgery [id number] HNP (herniated nucleus pulposus), lumbar 07/13/2018 03/02/2019 Overview (07/13/2018): Added automatically from request for surgery [id number] Encounters Date Type Department Care Team Description 07/24/2025 7:30 AM CDT Ancillary Procedure [facility] [address] [place] [address] [place] [phone] Status post placement of implantable loop recorder; Paroxysmal supraventricular tachycardia; History of radiofrequency ablation (RFA) procedure for cardiac arrhythmia; Syncope and collapse; RVOT ventricular tachycardia (HCC) 06/12/2025 7:00 AM CDT Ancillary Procedure [facility] [address] [place] [address] [place] [phone] Status post placement of implantable loop recorder; Paroxysmal supraventricular tachycardia; History of radiofrequency ablation (RFA) procedure for cardiac arrhythmia; Syncope and collapse; RVOT ventricular tachycardia (HCC) 06/09/2025 8:00 AM CDT Office Visit [facility] [address] [facility] [address] [place] [phone] Jessica Shoemaker NP Sinus pause (Primary Dx); Paroxysmal supraventricular tachycardia; History of syncope; Status post placement of implantable loop recorder from Last 3 Months Immunizations Immunization Administration [...] on file Legal Sex Female 11:06 AM CONSTRUCTION OR LEAK GANG LABORER Gender Identity Not on file Sexual Orientation Not on file Obstetrics History Last Filed Vital Signs Vital Sign Reading Time Taken Comments Blood Pressure 142/70 06/09/2025 8:05 AM CDT Pulse 117 06/09/2025 8:05 AM CDT Temperature 36.4 C (97.5 F) 09/07/2023 10:05 AM CDT Respiratory Rate 18 09/15/2023 9:25 AM CONSTRUCTION OR LEAK GANG LABORER Oxygen Saturation 98% 06/09/2025 8:05 AM CDT [...] Cancer Screening 2006 Well Visit 65+ 2021 Fall Risk Assessment 09/07/2024 09/07/2023 Covid-19 Vaccine ( - 2024-2 6 season) 2025 09/08/2021, 03/05/2021, 02/05/2021 Influenza Vaccine (#1) 2025 , 08/28/2022, 08/29/2021, Additional history exists DTaP/Tdap/Td Vaccine (2 - Td or Tdap) 09/04/2032 09/04/2022 Hepatitis C Screening Completed 10/15/2018 Zoster Vaccine Completed 11/20/2020, 09/21/2020 Pneumococcal vaccine 65+ Completed 01/24/2022 Medical Devices Implanted Type Area Venue Coordinator Device Identifier Shelf Expiration Date Model / Serial / Lot Loop Recorder Biotronidooyoo Biomonitor Iii-Left Upper Chest Chest Knee Arthroplasty Right: Knee Left Lower Leg Hardware From Fracture Left: Leg Orthocon Inc Os-201 Hemasorb Spatula Wax 2gm Bone Sterile - [id number] Implanted:Qty: 1 on 10/15/2018 by Elvin Palmer MD at [facility] N/A: Spine Cervical [employer] Inc 10/08/2020 OS-201 / / [id number] Cage [employer] 3d Cervical 14.3w44t3ur 7 Deg - [id number] Implanted:Qty: 1 on 10/15/2018 by Elvin Palmer MD at [facility] N/A: Spine Cervical Core Link [id number] 12/02/2022 [id number] / / [id number] Core Link Anodyne 12mm Level 1 Spine Cervical Anterior Plate Bone - [id number] Implanted:Qty: 1 on 10/15/2018 by Elvin Palmer MD at [facility] N/A: Spine Cervical Core Link / / Core Link [id number] Anodyne 4mm 14mm Variable Angle Self Tap Spine Cervical Screw - [id number] Implanted:Qty: 4 on 10/15/2018 by Elvin Palmer MD at [facility] N/A: Spine Cervical Core Link 25241-61 / / Screw Bone Biased Angle L14 Mm Od3.5 Mm Cephelad Caudal Nonsterile Posterior Occipital Cervical Thoracic System 3500 Series - [id number] Implanted:Qty: 4 on 01/20/2019 by Elvin Palmer MD at [facility] N/A: Spine Cervical Core Link 15709-38 / / Screw Set Spinal 3500 Series - [id number] Implanted:Qty: 4 on 01/20/2019 by Elvin Palmer MD at [facility] N/A: Spine Cervical Core Link 91699-77 / / Core Link [id number] Lulu 3.5mm 50mm Line Prebent Jin Spinal Nonsterile 3500 Series - [id number] Implanted:Qty: 1 on 01/20/2019 by Elvin Palemr MD at [facility] N/A: Spine Cervical Core Link [id number] / / Core Link 27121-33 Lulu Screw Set 5500 Series - Sna - [id number] Implanted:Qty: 4 on 06/20/2019 by Elvin Palmer MD at [facility] N/A: Back Core Link 25191-15 / NA / Core Link [id number] Lulu 5.5mm 35mm Line Prebent Jin Spinal Nonsterile 5500 Series - Sns - [id number] Implanted:Qty: 2 on 06/20/2019 by Elvin Palmer MD at [facility] N/A: Back Core Link [id number] / NS / [employer] [id number] Inqu Paste Mix Plus Road Mixer Operator 10cc Bone Graft Hyaluronic Acid Poly - Sna - [id number] Implanted:Qty: 1 on 06/20/2019 by Elvin Palmer MD at [facility] N/A: Back [employer] [id number] 01/19/2021 [id number] / NA / [id number] Core Link 74852-38 Lulu 6.5mm 40mm Spine Pedicle Screw Bone 5500 Series - Sna - [id number] Implanted:Qty: 4 on 06/20/2019 by Elvin Palmer MD at [facility] N/A: Back Core Link 43317-42 / NA / SMA In[employer] 700-025 I Factor Allograft Putty Syringe Graft 2.5cc Bone - [id number] Implanted:Qty: 1 on 11/26/2020 by Elvin Palmer MD at [facility] N/A: Spine Cervical [employer] Inc 09/08/2023 700-025 / / [id number] Cage Foundation 3d Cervical 14.2l73p1ns 7 Deg - [id number] Implanted:Qty: 1 on 11/26/2020 by Elvin Palmer MD at [facility] N/A: Spine Cervical Core Link 10/25/2024 [id number] / / [id number] Core Link Anodyne 12mm Level 1 Spine Cervical Anterior Plate Bone - [id number] Implanted:Qty: 1 on 11/26/2020 by Elvin Palmer MD at [facility] N/A: Spine Cervical Core Link / / Core Link Anodyne 4mm 14mm Variable Angle Self Tap Spine Cervical Screw - [id number] Implanted:Qty: 4 on 11/26/2020 by Elvin Palmer MD at [facility] N/A: Spine Cervical Core Link / / Procedures Procedure Name Priority Date/Time Associated Diagnosis Comments DEVICE CHECK - REMOTE Routine 06/13/2025 7:39 AM CDT Status post placement of implantable loop recorder Paroxysmal supraventricular tachycardia History of radiofrequency ablation (RFA) procedure for cardiac arrhythmia Syncope and collapse RVOT ventricular tachycardia (HCC) HEPATITIS C ANTIBODY STAT 10/15/2018 11:20 AM CONSTRUCTION OR LEAK GANG LABORER from Last 3 Months or Most Recently Relevant to Health Maintenance Results * DEVICE CHECK - REMOTE (06/13/2025 7:39 AM CDT) Anatomical Region Laterality Modality Other Narrative 06/27/2025 9:57 AM CDT IntelliCell™ Bio[employer] Bio-monitor III Loop Recorder. Dx; Syncope, PSVT, AT, RVOT VT s/p ablation. DOI 03/05/2022-[facility]. [employer] Systems[employer]oo remote monitoring. Routine ILR remote. Normal device [...] 21) Ectopy beats: 2717. See scanned report. [email or web address] remote f/u 07/24/2025. Shelley Looney RN [facility] Chelly Pierce MD CV CARDIAC SERVICES PRO CEDURES Final Result * Hepatitis C antibody (10/15/2018 11:20 AM CONSTRUCTION OR LEAK GANG LABORER) Hep C Ab Non-Reactiv e Non[facility]activ e [facility] Blood specimen (specimen) 10/15/2018 11:20 AM CONSTRUCTION OR LEAK GANG LABORER 10/15/2018 11:41 AM CONSTRUCTION OR LEAK GANG LABORER Narrative [facility] - 10/15/2018 12:25 PM CONSTRUCTION OR LEAK GANG LABORER us Notinfile Unknown LAB MICROBIOLOGY - GENERAL ORD ERABLES Final Result [facility] [address] [place] [address] from Last 3 Months or Most Recently Relevant to Health Maintenance Insurance MEDICARE [facility] MEDICARE AETNA Vision MEDICARE AET SENIOR SUPPLEMENT Advance Directives For more information, please contact: [phone] * Full Code (Latest Code Status on File) Date Activated Date Inactivated Comments 09/07/2023 10:10 AM 09/07/2023 2:44 PM * Full Code Date Activated Date Inactivated Comments 06/20/2019 12:01 PM 06/20/2019 6:34 PM * Full Code Date Activated Date Inactivated Comments 10/15/2018 2:08 PM 10/15/2018 4:39 PM * Full Code Date Activated Date Inactivated Comments 07/16/2018 2:30 PM 07/16/2018 6:36 PM Care Teams Contract Management Specialist Relationship Specialty Start Date End Date Per Samson MD PCP - General Family Practice 06/01/23 Coretta Childers MD Consulting Physician Cardiology 08/28/23 Tima Henson MD [address] [place] [address] Consulting Physician Otolaryngology 08/28/23
--- OUTSIDE RECORDS SUMMARY | 2025-08-21 08:08 | XMS_ITS | Clinical Summary ---
[facility] Address [address] [facility] [place] [address] Care Team Providers Care Senior Benefits Specialist Name Role Phone Per Samson MD Primary Care Provider [phone] Allergies No known active allergies Medications atorvastatin [...] mouth daily. Active naloxone (NARCAN) 4 mg/spray [place], Non-Aerosol EMERGENCY USE ONLY: Administer 1 spray (4 mg) in one nostril one time. May repeat in alternating nostrils every 2-3 min until responsive or EMS arrives. 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 150 mL 1 5 Active zolpidem (AMBIEN) 5 mg tabletIndicatio ns:Insomnia, unspecified type Take 1 Tablet (5 mg) by mouth nightly as needed for Insomnia. 15 Tablet 5 Active methylPREDNISol one (MEDROL DOSPACK) 4 mg Tablets, Dose Pack Use as directed 21 Tablet 5 Active benzonatate (TESSALON) 200 mg capsule Take 1 Capsule (200 mg) by mouth 3 times daily as needed for Cough. 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 Max Daily Amount: 4 Tablets 90 Tablet 5 Active gabapentin (NEURONTIN) 300 mg capsule Take 1 Capsule (300 mg) by mouth 2 times daily. 60 Capsule 5 Active Active Problems Problem Noted Date Diagnosed Date Carcinoma metastatic to bone with unknown primar y site 07/21/2025 Encounters Date Type Department Care Team Description 08/07/2025 Orders Only [facility] Oncology and Hematology 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) 08/01/2025 Orders Only [facility] Oncology and Hematology - [place] [address] [place] [phone] Basil Ludwig MD 07/26/2025 External Device Data ST[facility] ABSTRACTION Provider, Abstract 07/25/2025 External Device Data [facility] ABSTRACTION Provider, Abstract 07/25/2025 External Device Data [facility] ABSTRACTION Provider, Abstract 07/24/2025 Orders Only [facility] Oncology and Hematology - [place] [address] [place] [phone] Basil Ludwig MD 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) 07/21/2025 8:30 AM CDT Office Visit [facility] Oncology and Hematology - [place] [address] [place] [phone] Chanda Anderson MD 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) 07/21/2025 Orders Only [facility] Oncology and Hematology - [place] [address] [place] [address] Basil Ludwig MD 07/18/2025 Orders Only [facility] Oncology and Hematology - [place] [address] [place] [address] Basil Ludwig MD 07/13/2025 Refill [facility]cology [facility]ology - [place] [address] [place] [address] Chanda Anderson MD 07/10/2025 Orders Only [facility] Oncology and Hematology - [place] [address] [place] [address] Basil Ludwig MD 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) 07/05/2025 Orders Only [facility] Oncology and Hematology - [place] [address] [place] [address] Basil Ludwig MD 07/04/2025 Telephone [facility] Oncology and Hematology - [place] [address] [place] [phone] Basil Ludwig MD Cough 07/03/2025 Telephone [facility] Oncology and H[facility]ology - [place] [address] Basil Ludwig MD Blurred Vision 06/30/2025 Telephone [facility] Oncology and Hematology - [place] [address] [place] [address] Basil Ludwig MD UTI Symptoms 06/26/2025 Orders Only [facility] Oncology and Hematology - [place] [address] Basil Ludwig MD 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) 06/21/2025 8:30 AM CDT Office Visit [facility] Oncology and Hematology - [place] [address] Basil Ludwig MD 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) (Primary Dx) 06/21/2025 Orders Only [facility] Oncology and Hematology - [place] [address] [place] [phone] Basil Ludwig MD 06/13/2025 External Device Data STL ABSTRACTION Provider, Abstract 06/12/2025 Orders Only [facility] Oncology and Hematology - [place] [address] Basil Ludwig MD 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 [address] [place] [address] Basil Ludwig MD from Last 3 Months [...] on file Legal Sex Female 2:15 PM TERRITORY DEVELOPMENT MANAGER Gender Identity Not on file Sexual Orientation Not on file Last Filed Vital Signs Vital Sign Reading Time Taken Comments Blood Pressure 171/86 07/21/2025 8:25 AM CDT Pulse 93 07/21/2025 8:21 AM CDT Temperature 36.9 C (98.4 F) 07/21/2025 8:21 AM CDT Respiratory Rate 16 07/21/2025 8:21 AM CDT Oxygen Saturation 94% 07/21/2025 8:21 AM CDT Inhaled Oxygen Concentration - - Weight 70.7 kg (155 lb 12.8 oz) 07/21/2025 8:21 AM CDT Height 154.9 cm (5' 1) 01/04/2025 11:4 1 AM TERRITORY DEVELOPMENT MANAGER Body Mass Index 29.44 01/04/2025 11:41 AM TERRITORY DEVELOPMENT MANAGER Plan of Treatment Upcoming Encounters Date Type Department Care Team (Late st Contact Info) Description 08/21/2025 8:30 AM CDT Office Visit [facility] Oncology and Hemat[facility] [address] [place] [address] Basil Ludwig MD [address] [facility] [address] [place] [address] Health Maintenance Due Date Last Done Comments DIABETES ANNUAL FOOT EXAM 1974 DIABETES MICROALBUMIN ANNUAL SCREEN 1974 LDL CHOLESTEROL ANNUAL 1974 FIT-DNA Q 3 years 2001 FIT/FOBT Q 1 year 2001 Flex Sig/CT Colonography Q 5 years 2001 RSV VACCINE (60+ or ) (1 - Risk 60-74 years 1-dose series) 2016 DIABETES HBA1C Q 6 MONTHS 11/30/20242023, 01/04/2024, 08/31/2023, Additional history exists BREAST CANCER SCREENING 12/15/2024 12/15/19 24, 12/15/2023, 10/06/2022, Additional history exists INFLUENZA VACCINE (#1) 2025 , 08/28/2023, 08/28/2022, Additional history exists COVID-19 Vaccine ( - 2024-2 6 season) 2025 08/28/2023, 09/08/2021, 03/05/2021, Additional history exists DIABETES ANNUAL RETINAL EXAM 05/01/2026, 09/14/2023, 11/29/2021, Additional history exists OSTEOPOROSIS SCREENING 10/06/2027 10/06/2022, 2019 COLORECTAL SCREENING 06/03/2032 06/03/2022 Colorectal Cancer Screening 06/03/2032 DTAP/TDAP/TD VACCINES (2 - T d or Tdap) 09/04/2032 09/04/2022 ZOSTER VACCINE Completed 11/20/2020, 09/21/2020 PNEUMOCOCCAL VACCINE 50+ YEARS Completed 01/24/2022 Procedures Procedure Name Priority Date/Time Associated Diagnosis Comments COMPREHENSIVE METABOLIC PANEL Routine 07/31/2025 10:05 AM CDT COMPREHENSIVE METABOLIC PANEL Routine 07/21/2025 12:43 PM CDT BASIC METABOLIC PANEL Routine 07/21/2025 11:48 AM CDT CBC WITH AUTODIFFERENTIAL Routine 2024 11:26 AM CDT PET BONE IMG W CT SKL BSE MID THG Routine 07/11/2025 3:19 PM CDT URINE CULTURE Routine 06/30/2025 10:39 AM CDT [...] METABOLIC PANEL Routine 05/26/2025 8:04 AM CDT from Last 3 Months Results * COMPREHENSIVE METABOLIC PANEL (07/31/2025 10:05 AM CDT) Only the most recent of5 resultswithin the time period is included. Blood us Basil Ludwig MD CHEMISTRY ORDERABLES Final Resu lt * BASIC METABOLIC PANEL (07/21/2025 11:48 AM CDT) Only the most recent of3 resultswithin the time period is included. Blood us Basil Ludwig MD CHEMISTRY ORDERABLES Final Resu lt * CBC WITH AUTODIFFERENTIAL (07/21/2025 11:26 AM CDT) Blood Basil Ludwig MD HEMATOLOGY ORDERABLES Final Res ult * PET BONE IMG W CT SKB MD (07/11/2025 3:19 PM CDT) Anatomical Region Laterality Modality Positron Emissio n Tomography (PET) Basil Ludwig MD PE ORDERABLES Final Result * URINE CULTURE (06/30/2025 10:39 AM CDT) Urine Basil Ludwig MD MICROBIOLOGY - GENERAL ORDERABL ES Final Result * CBC WITH DIFFERENTIAL (05/31/2025 11:49 AM CDT) Only the most recent of3 resultswithin the time period is included. Blood Basil Ludwig MD HEMATOLOGY ORDERABLES Final Res ult from Last 3 Months Insurance MEDICARE PART A AND B [employer] MEDICARE SUPP AESSI Member Subscriber Plan / Payer (Ef fective 2021-Present) Name:Frannie Palma Relation to Subscriber:Self Name:Frannie Palma Payer ID:[id number] (NAIC) Group ID:Not on file Type:Supplemental Address: [place] [id number] Care Teams Senior Benefits Specialist Relationship Specialty Start Date End Date Per Samson MD [address] [place] [address] PCP - General Family Practice 02/17/25
--- OUTSIDE RECORDS SUMMARY | 2025-08-21 08:08 | XMS_ITS | Clinical Summary ---
Author Organization [facility] Address [address] [place] [address] Care Team Providers Care Microbiology Professor Name Role Phone Zafar Reddy MD Primary Care Provider [phone] Allergies Active Allergy Reactions Criticality Noted Date [...] (11/12/2022): Added automatically from request for surgery [id number] Social History Tobacco Use Types Packs/Day Years [...] Scan (General) 2021 COVID-19 Vaccine (4 - 2024-2 6 season) 2025 09/08/2021, 03/05/2021, 02/05/2021 Influenza Adult (#1) 2025 08/29/2021, 08/26/2020 RSV Immunization or 60+ Years [...] age to complete this topic Insurance [facility] Care Teams Microbiology Professor Relationship Specialty Start Date End Date Zafar Reddy MD [address] [place] [address] PCP - General 05/10/12
--- OUTSIDE RECORDS SUMMARY | 2025-08-21 08:08 | XMS_ITS | Encounter Summary ---
Author Organization [facility] Address [address] [facility] [place] [address] Care Team Providers Care Shank Sander Name Role Phone Edy Aviles DO Primary Care Provider [phone] Encounter Details Date Type Department Care Team (Late st Contact Info) Description 02/24/2024 Lab Requisition [facility] - DermPath Lab [address] [facility], [facility] [place] [address] [place] [address] Social History Tobacco Use Types Packs/Day Years Used Date Smoking Tobacco: Every Day Cigarettes 0.5 52.8 Started: 10/25/1972 Smokeless Tobacco: Never Alcohol Use [...] on file Legal Sex Female 6:21 AM SENIOR CARE PROVIDER Gender Identity Not on file Sexual Orientation [...] AM CDT) Case Report Dermatopathology Report Case: [id number] Authorizing Provider: Israel Lang MD Collected: 02/23/2024 12:00 AM Ordering Location: [facility] - Received: 02/25/2024 06:55 AM DermPath [...] five pieces in aggregate shave biopsy measuring 86q86m0 mm. Jar 0. 1:41 PM T DERMATOPATHOLOGY [...] characteristic determined by the Dermatopathology Laboratory at [facility], directed by Dr. Yessi Jackman. These tests need not be, and therefore are not, approved by the [place] Food and Drug Administration. The tests are used for clinical purposes. Billing Codes Specimen Charges Stain Charges 31028 51841 12700 1 1 1 4 1:41 PM CDT [...] DERMATOPATHOLOGY LABORATORY [facility] - Department of Dermatology [facility] [address] [place] [address], [address] [phone] documented in this encounter Visit Diagnoses Not on filedocumented in this encounter Care Teams Shank Sander Relationship Specialty Start Date End Date Edy Aviles DO [address] [place] [address] PCP - General 06/17/22 documented as of this encounter
--- OUTSIDE RECORDS SUMMARY | 2025-08-21 08:08 | XMS_ITS | Encounter Summary ---
Author Organization [facility] Address [address] [place] [address] Care Team Providers Care Information Assoc Name Role Phone Edy Aviles DO Primary Care Provider [phone] Encounter Details Date Type Department Care Team (Late st Contact Info) Description 12/19/2020 Lab Requisition [facility] Care DermPath Lab [address] [facility] [place] [address] [place] [address] Social History Tobacco Use Types Packs/Day Years Used Date Smoking Tobacco: Never Assessed Comments Unknown Sex and Gender Information Value Date Recorded Sex Assigned at Not on file 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 Gender Identity Not on file Sexual Orientation Not on file documented as of this encounter Plan of Treatment Not on file documented as of this encounter Procedures Procedure Name Priority Date/Time Associated Diagnosis Comments DERMATOPATHOLOGY Routine 12/18/2020 12:0 0 AM ESCROW SECRETARY documented in this encounter Results * DERMATOPATHOLOGY (12/18/2020 12:00 AM ESCROW SECRETARY) Case Report Dermatopathology Report Case: [id number] Authorizing Provider: Israel Lang MD Collected: 12/18/2020 12:00 AM Ordering Location: [facility] Derm[facility] Received: 12/19/2020 11:37 AM Pathologist: Nata Olmos MD Specimen: Skin, left ear superior rim 4:54 PM [facility] DERMATOPATHOLOGY LABORATORY Final Diagnosis Specimen A. 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 4:54 PM [facility] DERMATOPATHOLOGY LABORATORY Gross Description Specimen A: Received is one formalin filled container labeled with the patient's name and designated left ear superior rim. The specimen consists of a shave biopsy (4 pieces) measuring 0t9w5hs, 2s4f7nb, 6a5j7wa, & 1t0l0jv. Jar 0. 4:54 PM [facility] DERMATOPATHOLOGY LABORATORY Microscopic Description Specimen A. SKIN, left ear superior rim: There is epidermal hyperplasia overlying dilated blood vessels and fibroplasia. 4:54 PM [facility] DERMATOPATHOLOGY LABORATORY Disclaimer An external and internal positive and negative controls are appropriate for the histochemical, immunohistochemical and immunofluorescence stain(s) in this case (if any), except where stated explicitly. The performance characteristics of the stain(s) cited in this report were developed and its performance characteristic determined by the Dermatopathology Laboratory at [facility], directed by Dr. Yessi Jackman. These tests need not be, and therefore are not, approved by the [place] Food and Drug Administration. The tests are used for clinical purposes. Billing Codes Specimen Charges Stain Charges 79791 1 4:54 PM [facility] DERMATOPATHOLOGY LABORATORY Embedded Images 4:54 PM [facility] DERMATOPATHOLOGY LABORATORY Pathology/Cytolog y TISSUE SPECIMEN FROM SKIN / Unknown 12/18/2020 12/19/2020 11:37 AM [facility] us Israel Lang MD LAB - PATHOLOGY/CYTOLOGY ORD ERABLES Final Result DERMATOPATHOLOGY LABORATORY [facility] - Department of Dermatology [address], [address] Floor [place], [place] [address] [place] [address] documented in this encounter Visit Diagnoses Not on filedocumented in this encounter Care Teams Information Assoc Relationship Specialty Start Date End Date Edy Aviles DO [address] [place] [address] PCP - General 06/17/22 documented as of this encounter
--- OUTSIDE RECORDS SUMMARY | 2025-08-21 08:09 | XMS_ITS | Encounter Summary ---
Author Organization [facility] Address [address] [facility] [address] [place] [address] Care Team Providers Care Gas Maker Helper Name Role Phone Zafar Reddy MD Primary Care Provider [phone] Sung Mullen MD Primary Care Provider [phone] Zafar Reddy MD Primary Care Provider [phone] Sung Mullen MD Primary Care Provider [phone] Zafar Reddy MD Primary Care Provider [phone] Sung Mullen MD Primary Care Provider [phone] Edy Aviles DO Primary Care Provider [phone] Per Samson MD Primary Care Provider [phone] Coretta Childers MD Unavailable [phone] Tima Henson MD Unavailable [phone] Encounter Details Date Type Department Care Team (Late st Contact Info) Description 03/13/2017 Orders Only [facility] ProviderKamran MD [address] [place] [address] Social History Tobacco Use Types Packs/Day Years Used Date Smoking Tobacco: Every Day Alcohol Use Standard Drinks/Week Comments No 0 (1 standard drink = 0.6 oz pur e alcohol) Comments Unknown Sex and Gender Information Value Date Recorded Sex Assigned at Not on file 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 Gender Identity Not on file Sexual Orientation [...] on filedocumented in this encounter Care Teams Gas Maker Helper Relationship Specialty Start Date End Date Zafar Reddy MD [address] [place] [address] PCP - General 06/10/12 11/12/20 Sung Mullen MD [address] [address] PCP - General 11/13/20 11/15/20 Zafar Reddy MD [address] [place] [address] PCP - General 11/16/20 11/22/20 Sung Mullen MD [address] [address] PCP - General 11/23/20 11/25/20 Zafar Reddy MD [address] [place] [address] PCP - General 11/26/20 05/20/21 Sung Mullen MD [address] [place] [address] PCP - General Internal Medicine 05/21/21 06/04/22 Edy Aviles DO [address] [place] [address] PCP - General Internal Medicine 06/05/22 05/31/23 Per Samson MD [address] [place] [address] PCP - General Family Practice 06/01/23 Coretta Childers MD [address] [place] [address] Consulting Physician Cardiology 08/28/23 Tima Henson MD [address] [address] Consulting Physician Otolaryngology 08/28/23 documented as of this encounter
[2025-08-21 09:20] LABS: Hemoglobin A1C 4.8 % (<5.7)
== END 2025-08-21 08:00 | disposition home or self-care (01) ==
PROVIDERS: PCP Family Medicine; Visit Provider Family Medicine
DX: E11.9 Type 2 diabetes mellitus without complications (principal); I10 Essential (primary) hypertension; I48.91 Unspecified atrial fibrillation
CPT/HCPCS: 36415; 83036

== ENCOUNTER 2025-11-01 07:19 | Outpatient (CLI) | payer MEDICARE, SELFPAY ==
--- NOTE | ~2025-11-01 | NM_ITS ---
NM bone scan whole body INDICATION: Metastatic carcinoma TECHNIQUE: The patient was injected with 25 mCi Tc 99m HDP. Gamma camera images of the region of interest and whole body were obtained. COMPARISON: CT dated 11/01/2025/CT dated 07/11/2025 FINDINGS: There are multiple foci of increased radiotracer uptake in bilateral ribs. There is abnormal uptake in the left scapula and likely the right acromion. There is abnormal uptake in the left mandibular rami. There are multiple focal areas of abnormal uptake in the lower thoracic and lumbar lumbar spine. There is mild abnormal uptake in the pelvis bilaterally. IMPRESSION: 1: Abnormal multifocal uptake, consistent with widespread osseous metastases.. Reviewed, dictated and finalized at location O. GRADUATE INTERN
--- NOTE | ~2025-11-01 | CT_ITS ---
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 COMPARISON: PET/CT 07/11/2025 TECHNIQUE: Helical CT performed from thoracic inlet to symphysis pubis IV contrast information not listed in PACS Coronal, sagittal reformats. Multi planar MIPS CT images acquired with automatic exposure control for dose reduction DLP: 1246 mGy-cm FINDINGS: CHEST- Lungs/Pleura: Emphysema. Bibasilar scarring. Thoracic Aorta: No dissection. No aneurysm. Pulmonary arteries: Normal caliber. Heart: Coronary artery calcification. Tracheobronchial tree: Patent. Tiny mucus left lateral trachea. Nodes: No enlarged nodes. Bones: No significant change in scattered sclerotic lesions. Including mild enlargement of posterior right rib 5 and 9. Soft tissues: Small thyroid nodule. ABDOMEN/PELVIS- Liver: Unchanged small hypodense foci probably cysts. Steatosis. Gallbladder: Unremarkable. Spleen: Unremarkable. Pancreas: Unremarkable. Adrenal glands: Unremarkable. Kidneys: Right kidney- No hydronephrosis. Stones. And cyst. Left kidney- No hydronephrosis. No renal stones. Distal esophagus/stomach: Unremarkable. Small bowel loops: Normal caliber and wall thickness. Colon: Sigmoid wall thickening. Diverticula are. Normal RLQ appendix. Sigmoid/vaginal tract, colocolonic tract, and enterocolic tract as before. Nodes: No enlarged nodes. Peritoneum: No ascites. No free air. Urinary bladder: Unremarkable. Uterus: Unremarkable. Adnexa: No masses. Bones: No acute bony abnormality. No significant change in scattered sclerotic lesions. Soft tissues: Unremarkable. Aorta: No aneurysm or dissection. Atherosclerotic disease. IVC: Unremarkable. Main portal vein/SMV/splenic vein: Patent. IMPRESSION: CHEST- 1. No acute findings or significant change from prior. ABDOMEN/PELVIS- 1. No acute findings or significant change from prior. 2. Chronic sigmoid diverticulitis with several fistulous tracts and/or scars. Can consider colonoscopy to further evaluate sigmoid. Reviewed, dictated and finalized at location R. RVISOR HARVESTING
== END 2025-11-01 07:20 | disposition home or self-care (01) ==
PROVIDERS: PCP Family Medicine; Visit Provider Internal Medicine Hematology & Oncology
DX: C80.1 Malignant (primary) neoplasm, unspecified (principal); C79.51 Secondary malignant neoplasm of bone
CPT/HCPCS: 71260; 74177; 78306; A9503; Q9967